=== PATIENT | female | born 1990 | race Caucasian/White ===

== ENCOUNTER 2023-03-06 17:35 | Emergency (ER) | payer OTHER, SELFPAY ==
[2023-03-06 17:42] VITALS: BP 116/73; PULSE 64; RESP 18; TEMP 36.8; O2SAT 99; BMI 31.9
--- NOTE | 2023-03-06 17:57 | ED.SKABFB1 ---
Documented by User: Zelda Medina 03/06/23 18:13 HPI - Skin/Abscess/Foreign Bdy General Chief complaint: Skin/Abscess/Foreign Body Stated complaint: ABSCESS INNER THIGH Time Seen by Provider: 03/06/23 17:56 Source: patient Mode of arrival: walk-in Limitations: no limitations History of Present Illness HPI narrative: 32 year old female presents to the ED for an erythematous, raised, painful area to her right groin. Onset was a few days ago. I has increased in size. States it started to drain today. Denies fever, chills, injury, weakness. Denies urinary sx. She did have a positive HPT yesterday. Rates her pain 6/10 at this time. 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 Related Data Previous Rx's Medication Instructions Recorded clindamycin HCl 300 mg capsule 300 mg PO TID 10 days #30 caps 03/06/23 Allergies Allergy/AdvReac Type Severity Reaction Status Date / Time amoxicillin Allergy Severe Verified 03/06/23 17:46 codeine Allergy Severe Verified 03/06/23 17:46 ibuprofen Allergy Severe Verified 03/06/23 17:46 Penicillins Allergy Severe Verified 03/06/23 17:46 Review of Systems ROS Constitutional Denies: fever or chills Cardiovascular Denies: chest pain Respiratory Denies: shortness of breath Gastrointestinal Denies: abdominal pain, vomiting or diarrhea Genitourinary Denies: painful urination, urinary frequency, urinary urgency or vaginal discharge Integumentary/Breast Reports: new lesion Exam Constitutional Vital Signs, click to edit/add: Last Vital Signs Temp 98.3 F 03/06/23 17:42 Pulse 64 03/06/23 17:42 Resp 18 03/06/23 17:42 BP 116/73 03/06/23 17:42 Pulse Ox 99 03/06/23 17:42 O2 Del Method Room Air 03/06/23 18:02 Common normals: no apparent distress and oriented x3 Exam limitations: no altered mental status General appearance: cooperative; not in distress and not ill appearing Eye Common normals: conjunctivae normal and no scleral icterus Neck & C-Spine Common normals: supple Respiratory Effort & inspection: symmetric chest movement Cardio Common normals: regular rate GI Common normals: soft to palpation and non-tender Other: Erythematous, raised, tender area to right groin, in skin fold. Area is draining. Area approx 1 cm in diameter. I and D not indicated at this time. Neuro Common normals: oriented x3 Sensorium/orientation: awake and alert Speech: speech normal Gait (neuro): normal gait Course Vital Signs Vital signs: Vital Signs Temperature 98.3 F 03/06/23 17:42 Pulse Rate 64 03/06/23 17:42 Respiratory Rate 18 03/06/23 17:42 Blood Pressure 116/73 03/06/23 17:42 Pulse Oximetry 99 03/06/23 17:42 Oxygen Delivery Method Room Air 03/06/23 17:42 Temperature 98.3 F 03/06/23 17:42 Pulse Rate 64 03/06/23 17:42 Respiratory Rate 18 03/06/23 17:42 Blood Pressure 116/73 03/06/23 17:42 Pulse Oximetry 99 03/06/23 17:42 Oxygen Delivery Method Room Air 03/06/23 18:02 MDM - Skin/Abscess/Foreign Bdy MDM Narrative Medical decision making narrative: The abscess area is draining. Warm, moist compresses were discussed. A prescription was provided for clindamycin. Follow up with pcp for a recheck, further evaluation and treatment. Discharge Plan Discharge Chief Complaint: Skin/Abscess/Foreign Body Clinical Impression: Abscess of skin or subcutaneous tissue Patient Disposition: Home, Self-Care Time of Disposition Decision: 17:56 Condition: Good Mode of Transportation: Private Vehicle Prescriptions / Home Meds: New clindamycin HCl 300 mg capsule 300 mg PO TID 10 Days Qty: 30 0RF Instructions: Abscess (ED) Stand Alone Forms: Portal Instructions Referrals: Physician,Non-Staff, [Primary Care Provider] - 1 week Discharge Date/Time: 03/06/23 18:05 Documented by User: Sade Jaeger MD 03/06/23 18:46 HPI - Skin/Abscess/Foreign Bdy General Chief complaint: Skin/Abscess/Foreign Body Stated complaint: ABSCESS INNER THIGH Time Seen by Provider: 03/06/23 17:56 Related Data Previous Rx's Medication Instructions Recorded clindamycin HCl 300 mg capsule 300 mg PO TID 10 days #30 caps 03/06/23 Allergies Allergy/AdvReac Type Severity Reaction Status Date / Time amoxicillin Allergy Severe Verified 03/06/23 17:46 codeine Allergy Severe Verified 03/06/23 17:46 ibuprofen Allergy Severe Verified 03/06/23 17:46 Penicillins Allergy Severe Verified 03/06/23 17:46 Exam Constitutional Vital Signs, click to edit/add: Last Vital Signs Temp 98.3 F 03/06/23 17:42 Pulse 64 03/06/23 17:42 Resp 18 03/06/23 17:42 BP 116/73 03/06/23 17:42 Pulse Ox 99 03/06/23 17:42 O2 Del Method Room Air 03/06/23 18:02 Course Vital Signs Vital signs: Vital Signs Temperature 98.3 F 03/06/23 17:42 Pulse Rate 64 03/06/23 17:42 Respiratory Rate 18 03/06/23 17:42 Blood Pressure 116/73 03/06/23 17:42 Pulse Oximetry 99 03/06/23 17:42 Oxygen Delivery Method Room Air 03/06/23 17:42 Temperature 98.3 F 03/06/23 17:42 Pulse Rate 64 03/06/23 17:42 Respiratory Rate 18 03/06/23 17:42 Blood Pressure 116/73 03/06/23 17:42 Pulse Oximetry 99 03/06/23 17:42 Oxygen Delivery Method Room Air 03/06/23 18:02 MDM - Skin/Abscess/Foreign Bdy MDM Narrative Medical decision making narrative: The abscess area is draining. Warm, moist compresses were discussed. A prescription was provided for clindamycin. Follow up with pcp for a recheck, further evaluation and treatment. Attending physician attestation I have reviewed the mid-level documentation, agree with the documentation, medical decision making and treatment plan as outlined by the mid-level provider. Discharge Plan Discharge Chief Complaint: Skin/Abscess/Foreign Body Clinical Impression: Abscess of skin or subcutaneous tissue Patient Disposition: Home, Self-Care Time of Disposition Decision: 17:56 Condition: Good Mode of Transportation: Private Vehicle Prescriptions / Home Meds: New clindamycin HCl 300 mg capsule 300 mg PO TID 10 Days Qty: 30 0RF Instructions: Abscess (ED) Stand Alone Forms: Portal Instructions Referrals: Physician,Non-Staff, MD [Primary Care Provider] - 1 week Discharge Date/Time: 03/06/23 18:05
== END 2023-03-06 18:05 | disposition home or self-care (01) ==
PROVIDERS: Emergency Provider Emergency Medicine
DX: L02.214 Cutaneous abscess of groin (principal)
CPT/HCPCS: 99283

== ENCOUNTER 2023-03-28 17:49 | Emergency (ER) | payer OTHER, SELFPAY ==
[2023-03-28 17:54] VITALS: BP 91/67; PULSE 95; RESP 18; TEMP 36.6; O2SAT 99; BMI 30.5
--- NOTE | 2023-03-28 18:15 | US_ITS ---
[address] [address] Patient Name: RJ ELENA MRN: [id number] date: 1990 Sex: F Assigned Patient Location: ER Current Patient Location: Accession/Order Number: [id number] Exam Date: 03/28/2023 18:59 Report Date: 03/28/2023 20:26 At the request of: ALESIA COSBY Procedure: US OB transvaginal EXAMINATION: US OB transvaginal HISTORY: Abdominal pain, 8 weeks preg TECHNIQUE: Grayscale and color Doppler sonographic evaluation of the uterus and adnexa was performed utilizing a transvaginal approach only. COMPARISON: None. FINDINGS: Uterus: Size: Normal Orientation:Anteverted Intrauterine Gestational Sac: Present Yolk Sac: Present Pole: Present. [place]-rump length measures 1.6 cm, 8 weeks 0 days, HILARY 11/12/2023 Cardiac Activity: Present Subchorionic hemorrhage: none Cervix: Closed Right adnexa:Right ovary is not visualized Left adnexa:A couple small cysts measuring up to 2.1 cm. Left ovary measures 4.4 x 2.7 x 2.8 cm and demonstrates arterial and venous Doppler waveform. Free fluid:No significant free pelvic fluid. 3.2 cm probable fibroid of the posterior body of uterus.. US/US OB transvaginal IMPRESSION: 1. Single, living, intrauterine with estimated age of 8 weeks 0 days based on crown-rump length. No gross complication. There is good concordance of age by dates with age by today's ultrasound. Electronically authenticated by: PAT WAGNER Date: 03/28/2023 20:26
--- NOTE | 2023-03-28 18:18 | ED_ITS ---
HPI - Nausea/Vomiting/Diarrhea General Chief complaint: Nausea/Vomiting/Diarrhea Stated complaint: Issues-8wks, Nausea/Vomiting, Dizziness Time Seen by Provider: 03/28/23 18:11 Source: patient Mode of arrival: walk-in Limitations: no limitations History of Present Illness HPI Narrative: patient is a 32-year-old female who presents to the Emergency Room eight weeks of for a one-day history of nausea and vomiting. She states she is not able to keep anything down. 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 She has not had any diarrhea or urinary symptoms. She has not yet seen an [facility] INSTALLER and is scheduled in the next several weeks. She reports abdominal pain but describes it as just nauseous feeling . She has had no vaginal bleeding or fluid leakage. she states she feels dizzy, she has had no syncope. She does not take any home medications for nausea. She has had no fevers or significant upper respiratory symptoms. Related Data Previous Rx's Medication Instructions Recorded clindamycin HCl 300 mg capsule 300 mg PO TID 10 days #30 caps 03/06/23 cephalexin 500 mg capsule 500 mg PO Q8H 7 days #21 caps 03/28/23 ondansetron 4 mg disintegrating 4 mg PO Q6H PRN nausea and 03/28/23 tablet vomiting #12 tabs Allergies Allergy/AdvReac Type Severity Reaction Status Date / Time amoxicillin Allergy Severe Verified 03/06/23 17:46 codeine Allergy Severe Verified 03/06/23 17:46 ibuprofen Allergy Severe Verified 03/06/23 17:46 Penicillins Allergy Severe Verified 03/06/23 17:46 Review of Systems ROS Constitutional Denies: fever or chills Ears, nose, mouth, and throat Denies: throat pain or nasal congestion Cardiovascular Denies: chest pain Respiratory Denies: shortness of breath Gastrointestinal Reports: abdominal pain, nausea and vomiting; Denies: diarrhea Genitourinary Denies: painful urination Musculoskeletal Denies: back pain Integumentary/Breast Denies: rash Neurological Reports: dizziness; Denies: headache Allergic/Immunologic Denies: hives Exam Narrative Exam Narrative: Gen.: Awake, alert, in no distress Head: Normocephalic, atraumatic ENT: Moist mucous membranes Respiratory: No respiratory distress, lungs clear bilaterally Cardio: Regular rate and rhythm Gastrointestinal: Abdomen is soft, nondistended and nontender to palpation Extremities: Moves extremities equally Psych: Normal mood and affect Neuro: No focal neuro deficit Skin: Warm, dry, intact Constitutional Vital Signs, click to edit/add: Last Vital Signs Temp 97.8 F 03/28/23 17:54 Pulse 95 H 03/28/23 17:54 Resp 18 03/28/23 17:54 BP 91/67 03/28/23 17:54 Pulse Ox 99 03/28/23 17:54 Course Vital Signs Vital signs: Vital Signs Temperature 97.8 F 03/28/23 17:54 Pulse Rate 95 H 03/28/23 17:54 Respiratory Rate 18 03/28/23 17:54 Blood Pressure 91/67 03/28/23 17:54 Pulse Oximetry 99 03/28/23 17:54 Temperature 97.8 F 03/28/23 17:54 Pulse Rate 95 H 03/28/23 17:54 Respiratory Rate 18 03/28/23 17:54 Blood Pressure 91/67 03/28/23 17:54 Pulse Oximetry 99 03/28/23 17:54 MDM - Nausea/Vomiting/Diarrhea MDM Narrative Medical decision making narrative: patient treated with IV fluids, Zofran. She had no episodes of emesis in the emergency Department and reported feeling better. Vital signs are stable. Abdomen is soft and benign. Ultrasound shows patient has an intrauterine gestation with no acute abnormalities measuring eight weeks and zero days. Cardiac activity is present. Patient is noted to have a urinary tract infection on lab studies, no evidence of sepsis or severe dehydration on blood work. She'll be treated with Keflex, Zofran for home. Follow-up with [facility] INSTALLER and return to the Emergency Room if symptoms change or worsen. Medical Records Attestation: I reviewed the patient's medical records. Lab Data Attestation: I reviewed the patient's lab results. Labs: Lab Results 03/28/23 Range/Units 18:34 WBC 10.6 (4.0-11.0) 10^3/uL RBC 4.32 (4.20-5.40) 10^6/uL Hgb 11.0 L (12.0-16.0) g/dL Hct 34.5 L (36.0-48.0) % MCV 79.9 L (81.0-99.0) fL MCH 25.5 L (26.7-34.0) pg MCHC 31.9 (29.9-35.2) g/dL RDW 16.9 H (11.0-15.0) % Plt Count 201 (150-450) 10^3/uL MPV 10.4 (9.5-13.5) fL Neut % (Auto) 68.2 (43.0-75.0) % Lymph % (Auto) 27.1 (20.5-60.0) % Josephine % (Auto) 2.9 (1.7-12.0) % Eos % (Auto) 1.1 (0.9-7.0) % Baso % (Auto) 0.3 (0.2-2.0) % Neut # (Auto) 7.2 H (1.4-6.5) 10^3/uL Lymph # (Auto) 2.9 (1.2-3.8) 10^3/uL Josephine # (Auto) 0.3 (0.3-0.8) 10^3/uL Eos # (Auto) 0.1 (0.0-0.7) 10^3/uL Baso # (Auto) 0.0 (0.0-0.1) 10^3/uL Abs Immat Gran (auto) 0.04 H (0.00-0.03) 10^3/uL Imm/Tot Granulo (auto) 0.4 (0.0-0.5) % Sodium 140 (136-145) mmol/L Potassium 4.2 (3.5-5.1) mmol/L Chloride 107 (98-107) mmol/L Carbon Dioxide 25.9 (21.0-32.0) mmol/L Anion Gap 11.3 BUN 6.0 L (7.0-18.0) mg/dL Creatinine 0.70 (0.55-1.02) mg/dL Est GFR ( Amer) >60 (>=60) Est GFR (Non-Af Amer) >60 (>=60) BUN/Creatinine Ratio 8.6 Glucose 83 (74-106) mg/dL Calcium 7.8 L (8.5-10.1) mg/dL Total Bilirubin 0.2 (0.2-1.0) mg/dL AST 13 L (15-37) U/L ALT 15 (14-59) U/L Alkaline Phosphatase 50 (46-116) U/L Total Protein 6.1 L (6.4-8.2) g/dL Albumin 2.9 L (3.4-5.0) g/dL Globulin 3.2 g/dL Albumin/Globulin Ratio 0.9 HCG, Quant 78934 mIU/mL Urine Color Lt. yellow (YELLOW) Urine Clarity Clear (CLEAR) Urine pH 7.5 (5.0-9.0) Ur Specific [place] 1.020 (1.005-1.025) Urine Protein Negative (NEG/TRACE) mg/dL Urine Glucose (UA) Negative (NEGATIVE) mg/dL Urine Ketones Negative (NEGATIVE) mg/dL Urine Occult Blood Trace-i (NEGATIVE) Urine Nitrite Negative (NEGATIVE) Urine Bilirubin Negative (NEGATIVE) Urine Urobilinogen 0.2 (0.2-1.0) EU/dL Ur Leukocyte Esterase Moderate A (NEGATIVE) Urine RBC 2-5 A (0-2) #/HPF Urine WBC 20-50 A (NONE SEEN) #/HPF Ur Squamous Epith Cells Many A (NONE/RARE) #/LPF Urine Crystals None seen (None Seen) #/HPF Urine Bacteria Moderate A (NONE SEEN) #/HPF Urine Casts None seen (NONE SEEN) #/LPF Urine Mucus None seen (NONE SEEN) Ur Culture Indicated? Yes Imaging Data US - abdomen: Attestation: I have reviewed the pertinent imaging results. Radiologist's impression: Procedure: US OB transvaginal EXAMINATION: US OB transvaginal HISTORY: Abdominal pain, 8 weeks preg TECHNIQUE: Grayscale and color Doppler sonographic evaluation of the uterus and adnexa was performed utilizing a transvaginal approach only. COMPARISON: None. FINDINGS: Uterus: Size: Normal Orientation:Anteverted Intrauterine Gestational Sac: Present Yolk Sac: Present Pole: Present. [place]-rump length measures 1.6 cm, 8 weeks 0 days, HILARY 11/12/2023 Cardiac Activity: Present Subchorionic hemorrhage: none Cervix: Closed Right adnexa:Right ovary is not visualized Left adnexa:A couple small cysts measuring up to 2.1 cm. Left ovary measures 4.4 x 2.7 x 2.8 cm and demonstrates arterial and venous Doppler waveform. Free fluid:No significant free pelvic fluid. 3.2 cm probable fibroid of the posterior body of uterus.. IMPRESSION: 1. Single, living, intrauterine with estimated age of 8 weeks 0 days based on crown-rump length. No gross complication. There is good concordance of age by dates with age by today's ultrasound. Electronically authenticated by: PAT WAGNER Date: 03/28/2023 20:26 Discharge Plan Discharge Chief Complaint: Nausea/Vomiting/Diarrhea Clinical Impression: Nausea and vomiting during , UTI (urinary tract infection) Patient Disposition: Home, Self-Care Time of Disposition Decision: 20:31 Condition: Good Prescriptions / Home Meds: New cephalexin 500 mg capsule 500 mg PO Q8H 7 Days Qty: 21 0RF ondansetron 4 mg tablet,disintegrating 4 mg PO Q6H PRN (Reason: nausea and vomiting) Qty: 12 0RF No Action clindamycin HCl 300 mg capsule 300 mg PO TID 10 Days Qty: 30 0RF Instructions: Nausea and Vomiting in (ED), Urinary Tract Infection in (ED) Stand Alone Forms: Portal Instructions Referrals: Physician,Non-Staff, MD [Primary Care Provider] - 1 week
[2023-03-28] MEDS: ONDANSETRON PF 4 MG/2 ML VIAL IV (18:32)
[2023-03-28] MEDS: DEXTROSE 5%-LACTATED RINGERS 1,000 ML 999 ML IV (18:32)
[2023-03-28 19:00] LABS: Basophils Percent Auto 0.3 % (0.2-2.0); Eosinophils Absolute Auto 0.1 10^3/uL (0.0-0.7); Eosinophils Percent Auto 1.1 % (0.9-7.0); Hematocrit 34.5 % (36.0-48.0); Immature Granulocytes Abs Auto 0.04 10^3/uL (0.00-0.03); Immature Granulocytes Pct Auto 0.4 % (0.0-0.5); Lymphocytes Absolute Auto 2.9 10^3/uL (1.2-3.8); Lymphocytes Percent Auto 27.1 % (20.5-60.0); Mean Corpuscular HGB Conc 31.9 g/dL (29.9-35.2); Mean Corpuscular Hemoglobin 25.5 pg (26.7-34.0); Mean Corpuscular Volume 79.9 fL (81.0-99.0); Mean Platelet Volume 10.4 fL (9.5-13.5); Monocytes Absolute Auto 0.3 10^3/uL (0.3-0.8); Monocytes Percent Auto 2.9 % (1.7-12.0); Neutrophils Absolute Auto 7.2 10^3/uL (1.4-6.5); Neutrophils Percent Auto 68.2 % (43.0-75.0); Platelet Count 201 10^3/uL (150-450); Red Blood Count 4.32 10^6/uL (4.20-5.40); Red Cell Distribution Width 16.9 % (11.0-15.0); White Blood Count 10.6 10^3/uL (4.0-11.0)
[2023-03-28 19:01] LABS: Bilirubin Urine NEGATIVE (NEGATIVE); Blood Urine TRACE-I (NEGATIVE); Clarity Urine CLEAR (CLEAR); Color Urine LT. YELLOW (YELLOW); Glucose Urine UA NEGATIVE (NEGATIVE); Ketones Urine NEGATIVE (NEGATIVE); Leukocyte Esterase Urine MODERATE (NEGATIVE); Nitrite Urine NEGATIVE (NEGATIVE); Protein Urine NEGATIVE (NEG/TRACE); Urobilinogen Urine 0.2 EU/dL (0.2-1.0); pH Urine 7.5 (5.0-9.0)
[2023-03-28 19:02] LABS: Urine Microscopic Indicated YES
[2023-03-28 19:08] LABS: Alanine Aminotransferase 15 U/L (14-59); Albumin Globulin Ratio 0.9; Albumin Level 2.9 g/dL (3.4-5.0); Alkaline Phosphatase 50 U/L (46-116); Anion Gap 11.3; Aspartate Amino Transferase 13 U/L (15-37); BUN Creatinine Ratio 8.6; Bilirubin Total 0.2 mg/dL (0.2-1.0); Calcium 7.8 mg/dL (8.5-10.1); Carbon Dioxide 25.9 mmol/L (21.0-32.0); Chloride 107 mmol/L (98-107); Estimated GFR (African America >60 (>=60); Estimated GFR (Non-African Ame >60 (>=60); Globulin 3.2 g/dL; Glucose 83 mg/dL (74-106); Potassium 4.2 mmol/L (3.5-5.1); Sodium 140 mmol/L (136-145); Total Protein 6.1 g/dL (6.4-8.2)
[2023-03-28 19:29] LABS: Mucus Urine NONE SEEN (NONE SEEN); Squamous Epithelial Cell Urine MANY #/LPF (NONE/RARE)
[2023-03-28 19:30] LABS: Bacteria Urine MODERATE #/HPF (NONE SEEN); Cast Seen? NONE SEEN #/LPF (NONE SEEN); Crystals Seen? None Seen #/HPF (None Seen); WBC Urine 20-50 #/HPF (NONE SEEN)
[2023-03-28 19:37] LABS: Urine Culture Indicated YES
== END 2023-03-28 20:43 | disposition home or self-care (01) ==
PROVIDERS: Physician Assistant; Emergency Provider Emergency Medicine
DX: O21.9 Vomiting of pregnancy, unspecified (principal); O23.41 Unspecified infection of urinary tract in pregnancy, first trimester; N39.0 Urinary tract infection, site not specified; Z3A.08 8 weeks gestation of pregnancy
CPT/HCPCS: 36415; 76817; 80053; 81001; 84702; 85025; 87086; 96361; 96374; 99285

== ENCOUNTER 2023-04-14 10:53 | Outpatient (OUT) | payer OTHER, SELFPAY ==
[2023-04-14 11:38] LABS: Basophils Percent Auto 0.3 % (0.2-2.0); Eosinophils Percent Auto 0.2 % (0.9-7.0); Estimated Average Glucose 91 mg/dL; Glycohemoglobin A1C 4.8 % (4.5-6.2); Hematocrit 34.8 % (36.0-48.0); Hemoglobin 11.3 g/dL (12.0-16.0); Immature Granulocytes Abs Auto 0.03 10^3/uL (0.00-0.03); Immature Granulocytes Pct Auto 0.3 % (0.0-0.5); Lymphocytes Absolute Auto 2.1 10^3/uL (1.2-3.8); Mean Corpuscular HGB Conc 32.5 g/dL (29.9-35.2); Mean Corpuscular Hemoglobin 25.6 pg (26.7-34.0); Mean Corpuscular Volume 78.7 fL (81.0-99.0); Mean Platelet Volume 10.3 fL (9.5-13.5); Monocytes Absolute Auto 0.3 10^3/uL (0.3-0.8); Monocytes Percent Auto 2.4 % (1.7-12.0); Neutrophils Absolute Auto 9.3 10^3/uL (1.4-6.5); Neutrophils Percent Auto 78.8 % (43.0-75.0); Platelet Count 163 10^3/uL (150-450); Red Blood Count 4.42 10^6/uL (4.20-5.40); Red Cell Distribution Width 16.6 % (11.0-15.0); White Blood Count 11.8 10^3/uL (4.0-11.0)
[2023-04-14 11:52] LABS: Thyroid Stimulating Hormone 1.429 uIU/mL (0.358-3.740)
[2023-04-15 04:07] LABS: HBsAg Screen Negative (Negative); HCV Ab Non Reactive (Non Reactive); HIV Ab/p24 Ag Screen Non Reactive (Non Reactive)
[2023-04-15 06:09] LABS: Rubella Antibodies, IgG 5.85 index (Immune >0.99)
[2023-04-15 10:09] LABS: Rapid Plasma Reagin, Quant Non Reactive titer (NonRea<1:1)
== END 2023-04-14 10:54 | disposition home or self-care (01) ==
LOC: LAB 10:55
PROVIDERS: Visit Provider Obstetrics & Gynecology
DX: Z34.80 Encounter for supervision of other normal pregnancy, unspecified trimester (principal)
CPT/HCPCS: 36415; 83036; 84443; 85025; 86592; 86762; 86803; 86850; 86900; 86901; 87086; 87340; 87389

== ENCOUNTER 2023-05-16 11:54 | Outpatient (OUT) | payer OTHER, SELFPAY ==
[2023-05-18 01:09] LABS: AFP Value 23.1 ng/mL (.); Gestat. Age Based On Ultrasound (.); Insulin Dep Diabetes No (.); Maternal Age At EDD 33.5 yr (.); OSBR Risk 1 IN 10000 (.); Results Report (.)
== END 2023-05-16 11:55 | disposition home or self-care (01) ==
LOC: LAB 11:56
PROVIDERS: Visit Provider Obstetrics & Gynecology
DX: Z34.92 Encounter for supervision of normal pregnancy, unspecified, second trimester (principal)
CPT/HCPCS: 36415; 82105

== ENCOUNTER 2023-06-15 19:55 | Outpatient (REF) | payer OTHER, SELFPAY ==
[2023-06-21 14:08] LABS: Age Gdln ACOG Testing Note (.); HPV Aptima Positive (Negative); IGP, Aptima HPV, rfx 16/18,45 Note (.)
--- OUTSIDE RECORDS SUMMARY | 2023-06-28 03:34 | XMS_ITS | CCD ---
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 Cutter Name Role Phone Mark Pitts Primary Care Physician [phone] PHILLIP LORA Admitting Unavailable HEBER, DR PRABHU Cervantes Consulting Unavailable GENO, PHILLIP Larios Attending Unavailable FLORENCIA, DR ROCK Primary Care Unavailable HARJEET, JOHN PAUL DUMAS Consulting Unavailable KASI, TULIO Consulting Unavailable MIKE, LIANNA Consulting Unavailable GREYSON, DR BROWNE Attending Unavailable GREYSON, DR BROWNE Consulting Unavailable FLORENCIA, DR ROCK Primary Care Unavailable GREYSON, DR BROWNE Admitting Unavailable Hubert, Saúl Attending Unavailable Hubert, Saúl Attending Unavailable Khadar, Charlie Hood Attending Unavailable Peggy, Javier Attending Unavailable Peggy, Javier Attending Unavailable Khadar, Charlie Hood Attending Unavailable HAIDER, John Attending Unavailable HAIDER, John Attending Unavailable MONICA, Willa Jean Attending Unavailable MONICA, Willa Jean Admitting Unavailable Amber, Quita Cano Attending Unavailable Lamin, Solo Sheldon Attending Unavailable CHEPE, ANY Attending Unavailable Allergies Allergy Classification Reported Allergen(s) Allergy Type Date of Onset Reaction(s) Facility (8 sources) Codeine; Translations: [codeine] Drug Allergy nausea [facility] (8 sources) Penicillin; Translations: [penicillin] Drug Allergy [facility] (1 source) Clindamycin Drug Allergy [facility] (1 source) Codeine Drug Allergy 4 [facility] (1 source) Penicillins Drug allergy (disorder) 4 [facility] (7 sources) Ibuprofen; Translations: [ibuprofen] Drug Allergy Anaphylaxis (disorder) [facility] (3 sources) Amoxicillin; Translations: [amoxicillin] Drug Allergy [facility] Medications Current Medications Medication Drug Class(es) Dates Sig (Normalized) Sig (Original) Albuterol (Eqv-ProAir HFA) 90 mcg/inh inhalation aerosol (1 source) Start: 02-26-2023 End: 03-05-2023 take 2 puff(s) by inhalation every four hours Albuterol (Eqv-ProAir HFA) 90 mcg/inh inhalation aerosol 2 puff(s), Inhalation, q4hr for 7 day(s), 8.5 gm, Refill(s) 0, [facility], 160, cm, 02/26/23 15:59:00 EDT, Height/Length Dosing, 85.6, kg, 02/26/23 15:59:00 EDT, Weight Dosing Start Date: 02/26/23 Stop Date: 03/05/23 Status: Ordered brompheniramine maleate 0.4 mg/ml / dextromethorphan hydrobromide 2 mg/ml / pseudoephedrine hydrochloride 6 mg/ml oral solution (6 sources) alpha-Adrenergic Agonist, Uncompetitive C-kogdud-Z-aspartat e Receptor Antagonist, Sigma-1 Agonist Start: 09-04-2022 take 5 mL by mouth four times daily Bromfed DM oral syrup 5 mL, Oral, QID for cold symptoms, 200 mL, Refill(s) 0, [facility], 160, cm, 02/26/23 15:59:00 EDT, Height/Length Dosing, 85.6, kg, 02/26/23 15:59:00 EDT, Weight Dosing Start Date: 02/26/23 Status: Ordered ciprofloxacin 3 mg/ml / dexamethasone 1 mg/ml otic suspension (2 sources) Corticosteroid, Quinolone Antimicrobial Start: 12-30-2022 End: 01-06-2023 Ciprodex 0.3%-0.1% Susp-Otic 5 drop(s), Otic, BID for 7 day(s), 7.5 mL, Refill(s) 0, [facility], 160, cm, 12/30/22 13:14:00 EDT, Height/Length Dosing, 85.6, kg, 12/30/22 13:14:00 EDT, Weight Dosing Start Date: 12/30/22 Stop Date: 01/06/23 Status: Ordered [id number] 0.3 ml EPINEPHrine 1 mg/ml auto-injector (6 sources) alpha-Adrenergic Agonist, beta-Adrenergic Agonist, Catecholamine Start: 04-14-2022 EpiPen 2-Ze 0.3 mg injectable kit 0.3 mg = 1 EA, IntraMuscular, As Directed, May substitute for another brand if required by insurance or inventory, # 1 kit(s), Refills(s) 0, Pharmacy: [facility], 160, cm, 04/14/22 14:56:00 EDT, Height/Length Dosing, 83, kg, 04/14/22 14:56:... Start Date: 04/14/22 Status: Ordered famotidine 40 mg oral tablet (2 sources) Histamine-2 Receptor Antagonist Start: 04-14-2022 End: 04-21-2022 take 1 tablet by mouth once daily at bedtime Pepcid 40 mg Tab 40 mg = 1 tab(s), Oral, Once a day (at bedtime), X 7 day(s), # 7 tab(s), Refills(s) 0, Pharmacy: [facility] 1985, 160, cm, 04/14/22 14:56:00 EDT, Height/Length Dosing, 83, kg, 04/14/22 14:56:00 EDT, Weight Dosing Start Date: 04/14/22 Stop Date: 04/21/22 Status: Ordered Start: 11-19-2021 End: 11-26-2021 take 1 tablet by mouth once daily at bedtime Pepcid 40 mg Tab 40 mg = 1 tab(s), Oral, Once a day (at bedtime), X 7 day(s), # 7 tab(s), Refills(s) 0, Pharmacy: [facility] 1985, 160, cm, 11/19/21 15:30:00 EDT, Height/Length Dosing, 83, kg, 11/19/21 15:30:00 EDT, Weight Dosing Start Date: 11/19/21 Stop Date: 11/26/21 Status: Ordered fluticasone propionate 0.05 mg/actuat metered dose nasal spray (2 sources) Corticosteroid Start: 12-31-2022 take 2 spray(s) nasal route once daily Flonase 0.05 mg/inh [place] 2 spray(s), Nasal, Daily, 16 gram, Refill(s) 0, each nostril, [facility] 1986, 160, cm, 12/31/22 10:20:00 EDT, Height/Length Dosing, 85.6, kg, 12/31/22 10:20:00 EDT, Weight Dosing Start Date: 12/31/22 Status: Ordered 12 hr guaiFENesin 600 mg extended release oral tablet (1 source) Start: 02-26-2023 End: 03-05-2023 take 1 tablet by mouth every twelve hours Mucinex 600 mg Tab-ER 600 mg = 1 tab(s), Oral, q12hr, X 7 day(s), # 14 tab(s), Refills(s) 0, Pharmacy: [facility] 1986, 160, cm, 02/26/23 15:59:00 EDT, Height/Length Dosing, 85.6, kg, 02/26/23 15:59:00 EDT, Weight Dosing Start Date: 02/26/23 Stop Date: 03/05/23 Status: Ordered Multi Vitamins oral tablet (7 sources) Start: 01-28-2019 take 1 tablet by mouth once daily Multi Vitamins oral tablet 1 tab(s), Oral, Daily, Refill(s) 0 Start Date: 01/28/19 Status: Ordered naproxen 500 mg oral tablet (14 sources) Nonsteroidal Anti-inflammatory Drug Start: 01-28-2019 take 1 tablet by mouth twice daily at mealtime naproxen 500 mg Tab 500 mg = 1 tab(s), Oral, BID, with food, # 14 tab(s), Refills(s) 0 Start Date: 01/05/21 Status: Ordered predniSONE 20 mg oral tablet (11 sources) Start: 02-26-2023 End: 03-03-2023 take 3 tablets by mouth once daily predniSONE 20 mg Tab 60 mg = 3 tab(s), Oral, Daily, X 5 day(s), # 15 tab(s), Refills(s) 0, Pharmacy: [facility] 1986, 160, cm, 02/26/23 15:59:00 EDT, Height/Length Dosing, 85.6, kg, 02/26/23 15:59:00 EDT, Weight Dosing Start Date: 02/26/23 Stop Date: 03/03/23 Status: Ordered Start: 09-05-2022 End: 09-12-2022 take 3 tablets by mouth once daily predniSONE 20 mg Tab 60 mg = 3 tab(s), Oral, Daily, X 7 day(s), # 21 tab(s), Refills(s) 0, Pharmacy: [facility] 1986, 160, cm, 09/05/22 21:08:00 EST, Height/Length Dosing, 85.6, kg, 09/05/22 21:08:00 EST, Weight Dosing Start Date: 09/05/22 Stop Date: 09/12/22 Status: Ordered Start: 04-14-2022 End: 04-21-2022 take 3 tablets by mouth once daily predniSONE 20 mg Tab 60 mg = 3 tab(s), Oral, Daily, X 7 day(s), # 21 tab(s), Refills(s) 0, Pharmacy: [facility] 1986, 160, cm, 04/14/22 14:56:00 EDT, Height/Length Dosing, 83, kg, 04/14/22 14:56:00 EDT, Weight Dosing Start Date: 04/14/22 Stop Date: 04/21/22 Status: Ordered Start: 11-19-2021 End: 11-26-2021 take 3 tablets by mouth once daily predniSONE 20 mg Tab 60 mg = 3 tab(s), Oral, Daily, X 7 day(s), # 21 tab(s), Refills(s) 0, Pharmacy: [facility] 1986, 160, cm, 11/19/21 15:30:00 EDT, Height/Length Dosing, 83, kg, 11/19/21 15:30:00 EDT, Weight Dosing Start Date: 11/19/21 Stop Date: 11/26/21 Status: Ordered Start: 07-04-2021 End: 07-09-2021 take 2 tablets by mouth once daily predniSONE 20 mg Tab 40 mg = 2 tab(s), Oral, Daily, # 10 tab(s), Refills(s) 0 Start Date: 07/04/21 Stop Date: 07/09/21 Status: Ordered promethazine hydrochloride 25 mg oral tablet (7 sources) Phenothiazine Start: 03-21-2019 take 1 tablet by mouth every four hours promethazine 25 mg Tab 25 mg = 1 tab(s), Oral, q4hr, # 14 tab(s), Refills(s) 0, Pharmacy: [facility] 1985 Start Date: 03/21/19 Status: Ordered traMADol hydrochloride 50 mg oral tablet (1 source) Opioid Agonist Start: 12-31-2022 End: 01-03-2023 take 1 tablet by mouth every six hours as needed for pain traMADOL 50 mg Tab 50 mg = 1 tab(s), Oral, q6hr, PRN for pain, X 3 day(s), # 12 tab(s), Refills(s) 0, Pharmacy: [facility] 1985, 160, cm, 12/31/22 10:20:00 EDT, Height/Length Dosing, 85.6, kg, 12/31/22 10:20:00 EDT, Weight Dosing Start Date: 12/31/22 Stop Date: 01/03/23 Status: Ordered Zofran ODT 4 mg Tab-Dis (14 sources) Start: 08-05-2019 take 1 tablet by mouth three times daily Zofran ODT 4 mg Tab-Dis 4 mg = 1 tab(s), Oral, TID, # 15 tab(s), Refills(s) 0, Pharmacy: [facility] 1985, 160, cm, 08/05/19 9:28:00 EST, Height/Length Measured, 86.5, kg, 08/05/19 9:28:00 EST, Weight Measured Start Date: 08/05/19 Status: Ordered Start: 03-21-2019 take 1 tablet by savannah th every six hours Zofran ODT 4 mg Tab-Dis 4 mg = 1 tab(s), Oral, q6hr, # 10 tab(s), Refills(s) 0, Pharmacy: [facility] 1985 Start Date: 03/21/19 Status: Ordered Problems Active Problems Problem Classification Problem Date Documented Da te Episodic/Chronic Allergic reactions (12 sources) Allergic reaction to food; Translations: [Other adverse food reactions, not elsewhere classified, initial encounter] Onset: 11-19-2021 Episodic Chronic obstructive pulmonary disease and bronchiectasis (1 source) Bronchitis; Translations: [Bronchitis, not specified as acute or chronic] Onset: 02-26-2023 Episodic Other ear and sense organ disorders (1 source) Otitis externa of left ear; Translations: [Unspecified otitis externa, left ear] Onset: 12-30-2022 Chronic Other ear and sense organ disorders (1 source) Otitis externa of bilateral ears; Translations: [Unspecified otitis externa, bilateral] Onset: 12-31-2022 Chronic Other upper respiratory infections (2 sources) Acute upper respiratory infection, unspecified; Translations: [Acute upper respiratory infection] Onset: 01-17-2022 Episodic Sprains and strains (2 sources) Sprain of left ankle; Translations: [Sprain of unspecified ligament of left ankle, initial encounter] Onset: 12-21-2022 Episodic Substance-related disorders (9 sources) Nicotine dependence; Translations: [Nicotine dependence, cigarettes, uncomplicated] Onset: 01-17-2022 Chronic Comment on above: Added secondary to d ocumentation in Social History. Unclassified (7 sources) None (qualifier value) 08-05-2019 Unclassified (2 sources) COUGH, UNSPECIFIED; Translations: [COUGH, UNSPECIFIED] Onset: 01-17-2022 Unclassified (1 source) CONTACT W/AND (SUSP) EXPOS COVID-19; Translations: [CONTACT W/AND (SUSP) EXPOS COVID-19] Onset: 07-07-2021 Viral infection (1 source) COVID-19; Translations: [COVID-19] Onset: 01-17-2022 Past or Other Problems Problem Classification Problem Date Documented Da te Episodic/Chronic Nausea and vomiting (1 source) Nausea with vomiting, unspecified; Translations: [NAUSEA WITH VOMITING UNSPECIFIED] Onset: 07-07-2021 Episodic Other aftercare (1 source) Other alf (current) drug therapy; Translations: [OTH CUSTODIAL CURRENT DRUG THERAPY] Onset: 07-07-2021 Episodic Other lower respiratory disease (4 sources) Shortness of breath; Translations: [SHORTNESS OF BREATH] Onset: 07-05-2021 Episodic Pneumonia (except that caused by tuberculosis or sexually transmitted disease) (1 source) Pneumonia, unspecified organism; Translations: [PNEUMONIA UNSPECIFIED ORGANISM] Onset: 07-07-2021 Episodic Unclassified (1 source) COUGH, UNSPECIFIED; Translations: [COUGH, UNSPECIFIED] Onset: 01-13-2022 Results Test Name Value Interpretation Reference Range Facil ity Consent for Treatmenton 02-08 Consent for Treatment [id number]:127 Normal [facility] Discharge Instructionson Discharge Instructions [id number]:127 Normal [facility] ED Clinical Summaryon 2022 ED Clinical Summary [place] [id number] ED Clinical Summary Person Information Name: RJ ELENA Calista/[facility] Age: 32 Years : 1990 Sex: Female Language: Indonesian PCP: Mark Pitts DO Marital Status: Single Phone: [phone] Visit Id: Visit Reason: Shortness of breath; Cough; SOB COUGH Speciality: Acuity: 4 Enc Type: Emergency Med Service: Emergency Arrival: 02/26/2023 15:53:15 Discharge: 02/26/2023 18:02:49 LOS: 000 02:09 Checkin: 02/26/2023 15:53:15 Checkout: 02/26/2023 18:02:49 Dispo Type: Home (Routine DC) EVENTS: Event Name Event Status Request Date/Time Start Date/Time Complete Date/Time Arrive Complete 02/26/2023 15:53:15 02/26/2023 15:53:15 02/26/2023 15:53:15 Document Home Meds Request 02/26/2023 15:53:15 Triage Complete 02/26/2023 15:53:15 02/26/2023 15:59:25 02/26/2023 15:59:25 Bed Assign Complete 02/26/2023 15:54:41 02/26/2023 15:54:41 02/26/2023 15:54:41 Dr Exam Complete 02/26/2023 15:54:41 02/26/2023 16:04:58 02/26/2023 16:04:58 RN Exam Complete 02/26/2023 15:54:41 02/26/2023 18:09:19 02/26/2023 18:09:19 Registration Complete 02/26/2023 15:57:03 02/26/2023 15:57:03 02/26/2023 15:57:03 Reg Complete Request 02/26/2023 15:57:03 Reg Bed Request Complete 02/26/2023 15:57:03 02/26/2023 15:57:03 02/26/2023 15:57:03 EKG Complete 02/26/2023 15:57:53 02/26/2023 16:05:31 X-Ray Complete 02/26/2023 15:59:48 02/26/2023 16:04:53 02/26/2023 16:17:22 Registration Complete 02/26/2023 16:04:58 02/26/2023 16:06:09 02/26/2023 16:06:09 Dr Exam Complete 02/26/2023 16:06:48 02/26/2023 16:06:48 02/26/2023 16:06:48 Registration Request 02/26/2023 16:06:48 Wet Read Request 02/26/2023 16:17:22 Pending Labs Complete 02/26/2023 16:38:46 02/26/2023 17:31:16 Lab Complete 02/26/2023 16:38:46 02/26/2023 17:31:16 Discharge Complete 02/26/2023 17:55:05 02/26/2023 18:10:02 02/26/2023 18:10:02 Transfer Complete 02/26/2023 18:10:02 02/26/2023 18:10:02 02/26/2023 18:10:02 ADDRESS: [address] [place] [address] [address] [place] [id number] PHYS DOC NOTES: MEDICAL INFORMATION: Prescriptions Given: New Medications [facility], [address] [place], [place] [id number], [phone] albuterol (Albuterol (Eqv-ProAir HFA) 90 mcg/inh inhalation aerosol) 2 Puffs Inhalation every 4 hours for 7 Days. Refills: 0. guaifenesin (Mucinex 600 mg Tab-ER) 1 Tablets By Mouth every 12 hours for 7 Days. Refills: 0. Medications to Continue Taking That Have Changed [facility], [address] [place], [place] [id number], [phone] START: brompheniramine/dextromethorphan/PSE (Bromfed DM oral syrup) 5 Milliliter By Mouth 4 times a day as needed for cold symptoms. Refills: 0. START: predniSONE (predniSONE 20 mg Tab) 3 Tablets By Mouth every day for 5 Days. Refills: 0. Other Medications START: brompheniramine/dextromethorphan/PSE (Bromfed DM oral syrup) 5 Milliliter By Mouth 4 times a day as needed for cold symptoms. Refills: 0. START: predniSONE (predniSONE 20 mg Tab) 2 Tablets By Mouth every day for 5 Days. Refills: 0. Medications to Continue with No Changes Other Medications epinephrine (EpiPen 2-Ze 0.3 mg injectable kit) 1 Each Intramuscular As Directed. May substitute for another brand if required by insurance or inventory. Refills: 0. fluticasone nasal (Flonase 0.05 mg/inh [place]) 2 Sprays Nasal Inhalation every day. each nostril. Refills: 0. multivitamin (Multi Vitamins oral tablet) 1 Tablets By Mouth every day. naproxen (Naprosyn 500 mg Tab) 1 Tablets By Mouth 2 times a day as needed for pain. Refills: 0. naproxen (naproxen 500 mg Tab) 1 Tablets By Mouth 2 times a day. with food. Refills: 0. ondansetron (Zofran ODT 4 mg Tab-Dis) 1 Tablets By Mouth every 6 hours. Refills: 0. ondansetron (Zofran ODT 4 mg Tab-Dis) 1 Tablets By Mouth 3 times a day. Refills: 0. promethazine (promethazine 25 mg Tab) 1 Tablets By Mouth every 4 hours. Refills: 0. PATIENT EDUCATION INFORMATION: Instructions: Acute Bronchitis, Adult Follow up: With: Address: [facility]: [address] [address] [facility] (1) In 3 days 03/01/2023 Comments: Call the office of your primary care doctor to arrange for follow-up within the above-stated timeframe. Follow-up with your primary care doctor about this ED visit. You should review your labs, imaging, and diagnoses from this ED visit with your primary care physician. If you were prescribed medications you should discuss possible side-effects and drug interactions with your pharmacist. Call 911 or go to the nearest Emergency Department if you develop any new or worsening symptoms. DIAGNOSIS: Bronchitis; Upper respiratory infection Normal [facility] ED Note-Physicianon 02-27-20 ED Note-Physician Basic Information Time Seen: Namrata CAO Juan Edenilson 02/26/2023 16:04 Chief Complaint Pt states cough and SOB x a couple of days. Worse today. Denies any productive cough. History of Present Illness 32-year-old otherwise healthy female presents ED with complaint of cough and shortness of breath over the last 2 to 3 days. Patient reports her symptoms are worse today. Patient complains of a cough which is not productive. Patient also complains of shortness of breath, especially with coughing. Patient denies any fevers or chills. Patient Dors minimal sore throat. Patient does endorse a past history of similar symptoms with episodes of bronchitis. Patient is a smoker. Patient denies any history of asthma or COPD. Patient denies any chest pain. Review of Systems Full 10 system ROS performed. Pt denies symptoms except as noted above in the HPI. Physical Exam Vitals & Measurements T: 37.1 ?C(Oral) HR: 107(Peripheral) RR: 16 BP: 115/76 SpO2: 98% HT: 160 cm WT: 85.6 kg BMI: 33.44 VITALS: I have reviewed the triage vital signs. GENERAL: Well developed, well appearing adult in no acute distress. NEURO: Alert and oriented. Moves all extremities. Face is symmetric and expressive. EYES: PERRL. No scleral icterus or conjunctival injection. No discharge. HENT: Normocephalic, atraumatic. Hearing is grossly intact. Nares grossly patent and without discharge. Mucous membranes moist. NECK: No JVD. Patient moves neck without restriction. CARDIO: Rhythm regular. Normal rate. No murmur, rub, or gallop. Pulses equal bilaterally in the upper and lower extremity. No lower extremity edema. PULM: Lungs clear to auscultation in all oneal. No wheezes, rales, or rhonchi. No conversational dyspnea. No splinting, stridor, or accessory muscle use. GI/: Abdomen is soft and non-tender. Normoactive bowel sounds. EXTREMITIES: Symmetric muscle bulk. No joint swelling. No clubbing, cyanosis, or deformity. SKIN: Warm and dry. Normal turgor. No rash or lesions appreciated. PSYCH: Mood, affect, and interaction is appropriate to the setting. Medical Decision Making MEDICAL DECISION MAKING Number and Complexity of Problems Differential Diagnosis: [] [facility] Data External documents reviewed: [] My EKG interpretation: [] My CT interpretation: [] My X-ray interpretation: [] My Ultrasound interpretation: [] Decision rules/scores evaluated: [] Discussed with: [] Treatment and Disposition ED Course: Patient presents ED with complaint of upper respirations including cough, congestion, shortness of breath. Patient is satting well on room air, is not tachypneic or tachycardic. No concern for pneumonia based on physical exam and chest x-ray. Patient with negative COVID swab. Patient did endorse a history of recurrent episodes of bronchitis, is a smoker. Patient with signs symptoms history consistent with a viral URI versus bronchitis. Patient request, patient was given prescription for steroid and albuterol inhaler which she states has helped her in the past. Return precautions to ED were discussed. Symptomatic treatment for URI discussed. Patient questions answered. Patient discharged home. [ x] The patient was diagnosed with upper respiratory infection and was not prescribed an antibiotic. [SATISFIES MIPS PERFORMANCE] [ ] The patient has competing comorbid condition within the last 12 months. The comorbid condition was [] (e.g., neutropenia, cystic fibrosis, chronic bronchitis, pulmonary edema, respiratory failure, rheumatoid lung disease). [MIPS PERFORMANCE EXCEPTION/EXCLUSION [ ] The patient is already on antibiotics, or has taken them within the last 30 days. [MIPS PERFORMANCE EXCEPTION/EXCLUSION] [ ] The patient had a competing diagnosis of [] (e.g. acute otitis media, chronic sinusitis, UTI, etc.) [MIPS PERFORMANCE EXCEPTION/EXCLUSION] [ ] The patient was diagnosed with upper respiratory infection and was prescribed or dispensed an antibiotic. [DOES NOT SATISFY MIPS PERFORMANCE] Shared decision making: [] Code status: [] Assessment/Plan Bronchitis (J40: Bronchitis, not specified as acute or chronic) Upper respiratory infection (J06.9: Acute upper respiratory infection, unspecified) Orders: albuterol, 2 puff(s), Inhalation, q4hr for 7 day(s), 8.5 gm, Refill(s) 0, [facility], 160, cm, 02/26/23 15:59:00 EDT, Height/Length Dosing, 85.6, kg, 02/26/23 15:59:00 EDT, Weight Dosing brompheniramine/dextromethorphan/PSE, 5 mL, Oral, QID for cold symptoms, 200 mL, Refill(s) 0, [facility], [facility], cm, 02/26/23 15:59:00 EDT, Height/Length Dosing, 85.6, kg, 02/26/23 15:59:00 EDT, Weight Dosing guaifenesin, 600 mg = 1 tab(s), Oral, q12hr, X 7 day(s), # 14 tab(s), Refills(s) 0, [facility], 160, cm, 02/26/23 15:59:00 EDT, Height/Length Dosing, 85.6, kg, 02/26/23 15:59:00 EDT, Weight Dosing predniSONE, 60 mg = 3 tab(s), Oral, Daily, X 5 day(s), # 15 tab(s), Refills(s) 0, Pharmacy: [facility] (more content not included)... Normal [facility] Comment on above: Result Comment: Elec tronically Signed By: Juan Ott PA-C\.br\Date and Time Signed: 02/26/23 18:46 EDT\.br\Electronically Co-Signed By: Charlie Rubalcava DO\.br\Date and Time Co-Signed: 02/26/23 18:51 EDT ED Patient Education Noteon 02-26-2023 ED Patient Education Note Pulmonary Medicine Acute Bronchitis, Adult Acute bronchitis is sudden inflammation of the main airways (bronchi) that come off the windpipe (trachea) in the lungs. The swelling causes the airways to get smaller and make more mucus than normal. This can make it hard to breathe and can cause coughing or noisy breathing (wheezing). Acute bronchitis may last several weeks. The cough may last longer. Allergies, asthma, and exposure to smoke may make the condition worse. What are the causes? This condition can be caused by germs and by substances that irritate the lungs, including: ? Cold and flu viruses. The most common cause of this condition is the virus that causes the common cold. ? Bacteria. This is less common. ? Breathing in substances that irritate the lungs, including: ? Smoke from cigarettes and other forms of tobacco. ? Dust and pollen. ? Fumes from household cleaning products, gases, or burned fuel. ? Indoor or outdoor air pollution. What increases the risk? The following factors may make you more likely to develop this condition: ? A weak body's defense system, also called the immune system. ? A condition that affects your lungs and breathing, such as asthma. What are the signs or symptoms? Common symptoms of this condition include: ? Coughing. This may bring up clear, yellow, or green mucus from your lungs (sputum). ? Wheezing. ? Runny or stuffy nose. ? Having too much mucus in your lungs (chest congestion). ? Shortness of breath. ? Aches and pains, including sore throat or chest. How is this diagnosed? This condition is usually diagnosed based on: ? Your symptoms and medical history. ? A physical exam. You may also have other tests, including tests to rule out other conditions, such as pneumonia. These tests include: ? A test of lung function. ? Test of a mucus sample to look for the presence of bacteria. ? Tests to check the oxygen level in your blood. ? Blood tests. ? Chest X-ray. How is this treated? Most cases of acute bronchitis clear up over time without treatment. Your health care provider may recommend: ? Drinking more fluids to help thin your mucus so it is easier to cough up. ? Taking inhaled medicine (inhaler) to improve air flow in and out of your lungs. ? Using a vaporizer or a humidifier. These are machines that add water to the air to help you breathe better. ? Taking a medicine that thins mucus and clears congestion (expectorant). ? Taking a medicine that prevents or stops coughing (cough suppressant). It is notcommon to take an antibiotic medicine for this condition. Follow these instructions at home: ? Take enpg-rno-odqvdku and prescription medicines only as told by your health care provider. ? Use an inhaler, vaporizer, or humidifier as told by your health care provider. ? Take two teaspoons (10 mL) of honey at bedtime to lessen coughing at night. ? Drink enough fluid to keep your urine pale yellow. ? Do not use any products that contain nicotine or tobacco. These products include cigarettes, chewing tobacco, and vaping devices, such as e-cigarettes. If you need help quitting, ask your health care provider. ? Get plenty of rest. ? Return to your normal activities as told by your health care provider. Ask your health care provider what activities are safe for you. ? Keep all follow-up visits. This is important. How is this prevented? To lower your risk of getting this condition again: ? Wash your hands often with soap and water for at least 20 seconds. If soap and water are not available, use hand earth science professor. ? Avoid contact with people who have cold symptoms. ? Try not to touch your mouth, nose, or eyes with your hands. ? Avoid breathing in smoke or chemical fumes. Breathing smoke or chemical fumes will make your condition worse. ? Get the flu shot every year. Contact a health care provider if: ? Your symptoms do not improve after 2 weeks. ? You have trouble coughing up the mucus. ? Your cough keeps you awake at night. ? You have a fever. Get help right away if you: ? Cough up blood. ? Feel pain in your chest. ? Have severe shortness of breath. ? Faint or keep feeling like you are going to faint. ? Have a severe headache. ? Have a fever or chills that get worse. These symptoms may represent a serious problem that is an emergency. Do not wait to see if the symptoms will go away. Get medical help right away. Call your local emergency services (911 in the [place] Do not drive yourself to the hospital. Summary ? Acute bronchitis is inflammation of the main airways (bronchi) that come off the windpipe (trachea) in the lungs. The swelling causes the airways to get smaller and make more mucus than normal. ? Drinking more fluids can help thin your mucus so it is easier to cough up. ? Take neam-enp-vpihaif and prescription medicin (more content not included)... Normal [facility] ED Patient Summaryon 023 ED Patient Summary (Inserted Image. Kim ble to display) [place] [id number] Patient Discharge Instructions Person Information Name: RJ ELENA Age: 32 Years Arrival Date: 02/26/2023 15:53:15 Discharge Diagnosis: Bronchitis; Upper respiratory infection Primary Care Physician: Mark Pitts DO Provider Information Primary Provider: Charlie Rubalcava DO Advanced Blower Feeder Dyed Raw Stock:Juan Ott PA-C The exam and treatment you received in the Emergency Department were for an urgent problem and are not intended as complete care. It is important that you follow up with a doctor, nurse practitioner, or physician?s administrative assistant data entry for ongoing care. If your symptoms become worse or you do not improve as expected and you are unable to reach your usual health care provider, you should return to the Emergency Department. We are available 24 hours a day. RJ ELENA has been given the following list of patient education materials, prescriptions and follow-up instructions: Follow-up Instructions: With: Address: When: Mark [facility] [address] [place] [address] [facility] () In 3 days 03/01/2023 Comments: Call the office of your primary care doctor to arrange for follow-up within the above-stated timeframe. Follow-up with your primary care doctor about this ED visit. You should review your labs, imaging, and diagnoses from this ED visit with your primary care physician. If you were prescribed medications you should discuss possible side-effects and drug interactions with your pharmacist. Call 911 or go to the nearest Emergency Department if you develop any new or worsening symptoms. In the event that this physician does not participate in your insurance network, please consult with your insurance company to find a nearby participating provider. Patient Education Materials: Acute Bronchitis, Adult A MESSAGE TO ALL PATIENTS REGARDING OPIOIDS PRESCRIPTION OPIOIDS: WHAT YOU NEED TO KNOW Prescription opioids can be used to help relieve uttmdwpl-lx-iadbrf pain and are often prescribed following a surgery or injury, or for certain health conditions. These medications can be an important part of the treatment but also come with serious risks. It is important to work with your healthcare provider to make sure you are getting the safest, most effective care. WHAT ARE THE RISKS AND SIDE EFFECTS OF OPIOID USE? Prescription opioids carry serious risks of addiction and overdose, especially with prolonged use. An opioid overdose, often marked by slowed breathing, can cause sudden . The use of prescription opioids can have a number of side effects as well, even when taken as directed: ? Tolerance?meaning you might need to take more of the medication for the same pain relief ? Physical dependence?meaning you have symptoms of withdrawal when a medication is stopped ? Increased sensitivity to pain ? Constipation ? Nausea, vomiting, and dry mouth ? Sleepiness and dizziness ? Confusion ? Depression ? Low levels of testosterone that can result in lower sex drive, energy, and strength ? Itching and sweating RISKS ARE GREATER WITH: ? History of drug misuse, substance use disorder, or overdose ? Mental health conditions (such as depression or anxiety) ? Sleep apnea ? Older age (65 years and older) ? Avoid alcohol while taking prescription opioids. Also, unless specifically advised by your health care provider, medications to avoid include: ? Benzodiazepines (such as Xanax or Valium) ? Muscle relaxants (such as Soma or Flexeril) ? Hypnotics (such as Ambien or Lunesta) ? Other prescription opioids KNOW YOUR OPTIONS Talk to your health care provider about ways to manage your pain that don?t involve prescription opioids. Some of these options may actually work better and have fewer risks and side effects. Options may include: ? Pain relievers such as acetaminophen, ibuprofen, and naproxen ? Some medication that are also used for depression or seizures ? Physical therapy and exercise ? Cognitive behavioral therapy, a psychological, goal-directed approach, in which patients learn how to modify physical, behavioral, and emotional triggers of pain and stress. IF YOU ARE PRESCRIBED OPIOIDS FOR PAIN: ? Never take opioids in greater amounts or more often than prescribed. ? Follow up with your primary health care provider. o Work together to create a plan on how to manage your pain. o Talk about ways to help manage your pain that don?t involve prescription opioids. o Talk about any and all concerns and side effects. ? Help prevent misuse and abuse o Never sell or share prescription opioids. o Never use another person?s prescription opioids. ? Store prescription opioids in a secure place and out of reach of others (this may include visitors, children, friends, and family) (more content not included)... Normal [facility] MICRO OTHER TESTSOrdered By: Juvenal Macario on 02-26-2023 Rapid COV Int NEG Ctl Pass (02/26/23 4:45 PM) Normal [facility] [place] Rapid COV Int POS Ctl Pass (02/26/23 4:45 PM) Normal [facility] [place] SARS-CoV+SARS-CoV-2 (COVID-1 9) Ag IA.rapid Ql (Resp) Not Detected (02/26/23 4:45 PM) Normal Not Detected [facility] [place] Prescriptions/Work Noteson 0 02-26-2023 Prescriptions/Work Notes [id number]:127 Normal [facility] Rapid COVID Antigen ([facility])on 02-26-2023 Rapid COV Int NEG Ctl Pass Normal [facility] Comment on above: Performed By: #### 2 [id number] ####[facility] [address] [place] [address] Rapid COV Int POS Ctl Pass Normal [facility] Comment on above: Performed By: #### 2 [id number] ####[place] [address] SARS-CoV+SARS-CoV-2 (COVID-1 9) Ag IA.rapid Ql (Resp) Not detected Normal Not Detected [facility] Comment on above: Result Comment: The Epitiroitor? System for Rapid Detection of SARS-CoV-2 is a chromatographic digital immunoassay intended for the direct and qualitative detection of SARS-CoV-2 nucleocapsid antigens in nasal swabs from individuals who are suspected of COVID-19 by their healthcare provider within the first five days of the onset of symptoms. Negative results should be treated as presumptive, do not rule out SARS-CoV-2 infection and should not be used as the sole basis for treatment or patient management decisions, including infection control decisions. Negative results should be considered in the context of a patient?s recent exposures, history and the presence of clinical signs and symptoms consistent with COVID-19, and confirmed with a molecular assay, if necessary, for patient management. For in vitro diagnostic use. In the [facility], only for use under an Emergency Use Authorization. In the [place], this test has not been FDA cleared or approved; this test has been authorized by FDA under an EUA for use by authorized laboratories; use by laboratories certified under the CLIA, 42 U.S.C. ?263a, that meet requirements to perform moderate, high, or waived complexity tests and at the Point of Care (POC), i.e., in patient care settings operating under a CLIA Certificate of Waiver, Certificate of Compliance, or Certificate of Accreditation. This test has been authorized only for the detection of proteins from SARS-CoV-2, not for any other viruses or pathogens; and, in the [place], this test is only authorized for the duration of the declaration that circumstances exist justifying the authorization of emergency use of in vitro diagnostics for detection and/or diagnosis of the virus that causes COVID-19 under Section 564(b)(1) of the Act, 21 U.S.C. ? 360bbb-3(b)(1), unless the authorization is terminated or revoked sooner. Performed By: #### 2 [id number] ####[place] [address] ADMITTED TO INTENSIVE CARE U NIT FOR CONDITION OF INTEREST:FIND:PT: NO Normal [facility] Comment on above: Performed By: #### 2 [id number] ####[place] [address] EMPLOYED IN A HEALTHCARE SETTING:FIND:PT: NO Rosario l [facility] Comment on above: Performed By: #### 2 [id number] ####[place] [id number] FIRST TEST FOR CONDITION OF INTEREST:FIND:PT: Unknown Normal [facility] Comment on above: Performed By: #### 2 [id number] ####[place] [address] HAS SYMPTOMS RELATED TO COND ITION OF INTEREST:FIND:PT: YES Normal [facility] Comment on above: Performed By: #### 2 [id number] ####[place] [id number] HOSPITALIZED FOR CONDITION O F INTEREST:FIND:PT: NO Normal [facility] Comment on above: Performed By: #### 2 [id number] ####[facility] [address] [place] [address] STATUS:FIND:PT: NO Normal [facility] Comment on above: Performed By: #### 2 [id number] ####[facility] [address] [place] [address] RESIDES IN A CONGREGATE CARE SETTING:FIND:PT: NO N ormal [facility] Comment on above: Performed By: #### 2 [id number] ####[facility] [address] [place] [address] XR Chest 2 Viewson 3 XR Chest 2 Views Exam Date/Time: 02/26/2023 16:17 EDT Reason for Exam: Cough Report IMPRESSION: NO RADIOGRAPHIC EVIDENCE OF ACTIVE DISEASE IN THE CHEST. CLINICAL INFORMATION: Cough COMPARISON: 2018 FINDINGS: 2 views. Osseous structures intact. Cardiopericardial silhouette normal. Pulmonary vasculature normal. Lungs clear. Ordering Provider: Charlie Rubalcava FINAL REPORT Dictated: 02/26/2023 4:33 pm Sharath Jimenez MD Signed (Electronic Signature): 02/26/2023 4:33 pm Signed by: Sharath Jimenez MD Transcribed by: ESTEVAN Technologist: SHELDON Technical Comments Radiation Dose: Ka,r in mGy = na DAP = na Normal [facility] In office Testingon 01-31-20 23 In office Testing [id number]:127 Normal [facility] Registrationon 01-30-2023 Registration [id number] 0CD:127 Normal [facility] ED Note-Physicianon 01-10-20 23 ED Note-Physician Basic Information Time Seen: Loyd Lange PA-C 12/31/2022 10:18 Chief Complaint patient c/o increasing pain in bilateral ears, was dx with bilateral ear infection and given drops yesterday History of Present Illness 32-year-old female reports to the emergency department with chief complaint of increasing pain behind her ears. States that she is diagnosed with a recent bilateral ear infection and given eardrops yesterday for this. States that is not helping at all. Reports that she just feels super congested and having pain. States that she cannot take NSAIDs due to having allergies to this. Reports Tylenol is not helping. Denies any fevers chills nausea vomiting. Review of Systems A 10 point review of systems is negative except as noted above. Medical and Surgical History: Reviewed and noted Social history: Lives at home Family History: Reviewed. Tobacco: User Physical Exam Vitals & Measurements T: 36.8 ?C(Oral) HR: 90(Peripheral) RR: 18 BP: 129/82 SpO2: 99% HT: 160 cm WT: 85.6 kg BMI: 33.44 General: The patient appears well and in no apparent distress. Patient is resting comfortably in chair. Afebrile Skin: Warm, dry, no pallor noted. Head: Normocephalic, atraumatic Neck: No JVD Eye: PERRLA, EOMI ENT: Moist mucus membranes. Right-sided TM is clear with no bulging noted. There is very mild debris in the right auditory ear canal, with mild swelling. Left-sided TM is clear with no bulging noted. The left auditory canal is more erythematous and swollen, but is still open enough I was able to see the TM. Cardiovascular: Regular rate normal peripheral perfusion Respiratory: No respiratory distress no accessory muscle use no obvious audible wheezing. Lung sounds clear auscultation Chest Wall: no deformity Musculoskeletal: normal ROM, no deformity, no swelling GI: No obvious distention Neurological: A&O moves all extremities equal strength and symmetry Psychiatric: Cooperative and appropriate Medical Decision Making MEDICAL DECISION MAKING Number and Complexity of Problems Differential Diagnosis: [] [facility] Data External documents reviewed: [] My EKG interpretation: [] My CT interpretation: [] My X-ray interpretation: [] My Ultrasound interpretation: [] Decision rules/scores evaluated: [] Discussed with: [] Treatment and Disposition ED Course: 32-year-old female reports emergency department with chief complaint of worsening ear pain. She was seen here yesterday, diagnosed with bilateral otitis externa. On my physical exam today, she has similar symptoms, but is not controlling the pain. On my physical exam, the left auditory ear canal is little bit worse than the right side, which appears to be similar to the exam yesterday. She can only take Tylenol for pain, which is not helping. Rest of exam of the patient is benign. Denies any fevers or chills. Discussed the importance of continuing to use the Ciprodex drops that she was prescribed. To help relieve her congestion, I did write Flonase for her, as well as tramadol to help with pain. Patient was grateful for this. Discussed return precautions. Follow-up with your primary care provider in 3 to 5 days. If symptoms worsen, do not improve, or new symptoms arise please report back to emergency department for further evaluation. The patient was understanding and agreeable to plan moving forward. Shared decision making: [] Code status: [] Assessment/Plan Bilateral otitis externa (H60.93: Unspecified otitis externa, bilateral) Orders: fluticasone nasal, 2 spray(s), Nasal, Daily, 16 gram, Refill(s) 0, each nostril, [facility], 160, cm, 12/31/22 10:20:00 EDT, Height/Length Dosing, 85.6, kg, 12/31/22 10:20:00 EDT, Weight Dosing tramadol, 50 mg = 1 tab(s), Oral, q6hr, PRN for pain, X 3 day(s), # 12 tab(s), Refills(s) 0, Pharmacy: [facility] 1985, 160, cm, 12/31/22 10:20:00 EDT, Height/Length Dosing, 85.6, kg, 12/31/22 10:20:00 EDT, Weight Dosing Disposition Plan Patient Discharge Condition Stable Discharge Disposition To home Discharge Prescription List Prescriptions Ciprodex 0.3%-0.1% Susp-Otic, 5 drop(s), Otic, BID Flonase 0.05 mg/inh [place], 2 spray(s), Nasal, Daily traMADOL 50 mg Tab, 50 mg= 1 tab(s), Oral, q6hr, PRN Follow-up With When Contact Information Mark Pitts In 3 days 01/03/2023 EDT [address] [place] [address]- Business (1) Additional Instructions: Follow-up with your primary care provider in 3 to 5 days. If symptoms worsen, do not improve, or new symptoms arise please report back to emergency department for further evaluation. Patient Education Otitis Externa Attestation Patient seen and evaluated by the physician administrative assistant data entry. Attending physician was present in the emergency department and supervised care. This visit was performed by both the physician and an APC. I performed all aspects of the MDM as documented. This report was transcribed u (more content not included)... Normal [facility] Comment on above: Result Comment: Elec tronically Signed By: Loyd Lange PA-C\.br\Date and Time Signed: 12/31/22 11:53 EDT\.br\Electronically Co-Signed By: Javier Woods DO\.br\Date and Time Co-Signed: 01/09/23 07:15 EDT Consent for Treatmenton 12-09 Consent for Treatment [id number]:127 Normal [facility] Discharge Instructionson Discharge Instructions [id number]:127 [facility] ED Clinical Summaryon 2022 ED Clinical Summary [place] [id number] ED Clinical Summary Person Information Name: RJ ELENA [place] Age: 32 Years : 1990 Sex: Female Language: Indonesian PCP: Mark Pitts DO Marital Status: Single Phone: [phone] Visit Id: Visit Reason: Ear pain; EAR PAIN Speciality: Acuity: 4 Enc Type: Emergency Med Service: Emergency Arrival: 12/31/2022 10:01:25 Discharge: 12/31/2022 10:41:31 LOS: 000 00:40 Checkin: 12/31/2022 10:01:25 Checkout: 12/31/2022 10:41:31 Dispo Type: Home (Routine DC) EVENTS: Event Name Event Status Request Date/Time Start Date/Time Complete Date/Time Arrive Complete 12/31/2022 10:01:25 12/31/2022 10:01:25 12/31/2022 10:01:25 Document Home Meds Request 12/31/2022 10:01:25 Triage Complete 12/31/2022 10:01:25 12/31/2022 10:20:35 12/31/2022 10:20:35 Registration Complete 12/31/2022 10:04:34 12/31/2022 10:04:34 12/31/2022 10:04:34 Reg Complete Request 12/31/2022 10:04:34 Reg Bed Request Complete 12/31/2022 10:04:34 12/31/2022 10:04:34 12/31/2022 10:04:34 Bed Assign Complete 12/31/2022 10:16:39 12/31/2022 10:16:39 12/31/2022 10:16:39 Dr Exam Complete 12/31/2022 10:16:39 12/31/2022 10:18:08 12/31/2022 10:18:08 RN Exam Complete 12/31/2022 10:16:39 12/31/2022 10:36:36 12/31/2022 10:36:36 Registration Request 12/31/2022 10:18:08 Dr Exam Complete 12/31/2022 10:18:40 12/31/2022 10:18:40 12/31/2022 10:18:40 Discharge Complete 12/31/2022 10:36:25 12/31/2022 10:41:35 12/31/2022 10:41:35 Transfer Complete 12/31/2022 10:41:35 12/31/2022 10:41:35 12/31/2022 10:41:35 ADDRESS: [address] [place] [address] [address] [facility] [id number] PHYS DOC NOTES: MEDICAL INFORMATION: Prescriptions Given: New Medications [facility], [address] [place], [place] [id number], [phone] fluticasone nasal (Flonase 0.05 mg/inh [place]) 2 Sprays Nasal Inhalation every day. each nostril. Refills: 0. tramadol (traMADOL 50 mg Tab) 1 Tablets By Mouth every 6 hours as needed for pain for 3 Days. Refills: 0. Medications to Continue with No Changes Other Medications brompheniramine/dextromethorphan/PSE (Bromfed DM oral syrup) 5 Milliliter By Mouth 4 times a day as needed for cold symptoms. Refills: 0. ciprofloxacin-dexamethasone otic (Ciprodex 0.3%-0.1% Susp-Otic) 5 Drops Otic 2 times a day for 7 Days. Refills: 0. epinephrine (EpiPen 2-Ze 0.3 mg injectable kit) 1 Each Intramuscular As Directed. May substitute for another brand if required by insurance or inventory. Refills: 0. multivitamin (Multi Vitamins oral tablet) 1 Tablets By Mouth every day. naproxen (Naprosyn 500 mg Tab) 1 Tablets By Mouth 2 times a day as needed for pain. Refills: 0. naproxen (naproxen 500 mg Tab) 1 Tablets By Mouth 2 times a day. with food. Refills: 0. ondansetron (Zofran ODT 4 mg Tab-Dis) 1 Tablets By Mouth 3 times a day. Refills: 0. ondansetron (Zofran ODT 4 mg Tab-Dis) 1 Tablets By Mouth every 6 hours. Refills: 0. predniSONE (predniSONE 20 mg Tab) 2 Tablets By Mouth every day for 5 Days. Refills: 0. promethazine (promethazine 25 mg Tab) 1 Tablets By Mouth every 4 hours. Refills: 0. PATIENT EDUCATION INFORMATION: Instructions: Otitis Externa Follow up: With: Address: When: [address] [address] [facility] () In 3 days 01/03/2023 Comments: Follow-up with your primary care provider in 3 to 5 days. If symptoms worsen, do not improve, or new symptoms arise please report back to emergency department for further evaluation. DIAGNOSIS: Bilateral otitis externa Normal [facility] ED Patient Education Noteon 12-31-2022 ED Patient Education Note Infectious Disease Otitis Externa Otitis externa is an infection of the outer ear canal. The outer ear canal is the area between the outside of the ear and the eardrum. Otitis externa is sometimes called swimmer's ear. What are the causes? Common causes of this condition include: ? Swimming in dirty water. ? Moisture in the ear. ? An injury to the inside of the ear. ? An object stuck in the ear. ? A cut or scrape on the outside of the ear or in the ear canal. What increases the risk? You are more likely to develop this condition if you go swimming often. What are the signs or symptoms? The first symptom of this condition is often itching in the ear. Later symptoms of the condition include: ? Swelling of the ear. ? Redness in the ear. ? Ear pain. The pain may get worse when you pull on your ear. ? Pus coming from the ear. How is this diagnosed? This condition may be diagnosed by examining the ear and testing fluid from the ear for bacteria and funguses. How is this treated? This condition may be treated with: ? Antibiotic ear drops. These are often given for 10?14 days. ? Medicines to reduce itching and swelling. Follow these instructions at home: ? If you were prescribed antibiotic ear drops, use them as told by your health care provider. Do not stop using the antibiotic even if you start to feel better. ? Take golt-evs-doxfftp and prescription medicines only as told by your health care provider. ? Avoid getting water in your ears as told by your health care provider. This may include avoiding swimming or water sports for a few days. ? Keep all follow-up visits. This is important. How is this prevented? ? Keep your ears dry. Use the corner of a towel to dry your ears after you swim or bathe. ? Avoid scratching or putting things in your ear. Doing these things can damage the ear canal or remove the protective wax that lines it, which makes it easier for bacteria and funguses to grow. ? Avoid swimming in lakes, polluted water, or swimming pools that may not have enough chlorine. Contact a health care provider if: ? You have a fever. ? Your ear is still red, swollen, painful, or draining pus after 3 days. ? Your redness, swelling, or pain gets worse. ? You have a severe headache. Get help right away if: ? You have redness, swelling, and pain or tenderness in the area behind your ear. Summary ? Otitis externa is an infection of the outer ear canal. ? Common causes include swimming in dirty water, moisture in the ear, or a cut or scrape in the ear. ? Symptoms include pain, redness, and swelling of the ear canal. ? If you were prescribed antibiotic ear drops, use them as told by your health care provider. Do not stop using the antibiotic even if you start to feel better. This information is not intended to replace advice given to you by your health care provider. Make sure you discuss any questions you have with your health care provider. Document Revised: 09/08/2021 Document Reviewed: 09/08/2021 Elsevier Patient Education ? 2022 [employer] Normal [facility] ED Patient Summaryon 023 ED Patient Summary [place] [id number] Patient Discharge Instructions Person Information Name: RJ ELENA Age: 32 Years Arrival Date: 12/31/2022 10:01:25 Discharge Diagnosis: Bilateral otitis externa Primary Care Physician: Mark Pitts DO Provider Information Primary Provider: Javier Woods DO Advanced Blower Feeder Dyed Raw Stock:None The exam and treatment you received in the Emergency Department were for an urgent problem and are not intended as complete care. It is important that you follow up with a doctor, nurse practitioner, or physician?s administrative assistant data entry for ongoing care. If your symptoms become worse or you do not improve as expected and you are unable to reach your usual health care provider, you should return to the Emergency Department. We are available 24 hours a day. RJ ELENA has been given the following list of patient education materials, prescriptions and follow-up instructions: Follow-up Instructions: With: Address: When: Mark Pitts [address] [place] [address] [phone] Business (1) In 3 days 01/03/2023 Comments: Follow-up with your primary care provider in 3 to 5 days. If symptoms worsen, do not improve, or new symptoms arise please report back to emergency department for further evaluation. In the event that this physician does not participate in your insurance network, please consult with your insurance company to find a nearby participating provider. Patient Education Materials: Otitis Externa A MESSAGE TO ALL PATIENTS REGARDING OPIOIDS PRESCRIPTION OPIOIDS: WHAT YOU NEED TO KNOW Prescription opioids can be used to help relieve elmokrmf-ey-jgxaxp pain and are often prescribed following a surgery or injury, or for certain health conditions. These medications can be an important part of the treatment but also come with serious risks. It is important to work with your healthcare provider to make sure you are getting the safest, most effective care. WHAT ARE THE RISKS AND SIDE EFFECTS OF OPIOID USE? Prescription opioids carry serious risks of addiction and overdose, especially with prolonged use. An opioid overdose, often marked by slowed breathing, can cause sudden . The use of prescription opioids can have a number of side effects as well, even when taken as directed: ? Tolerance?meaning you might need to take more of the medication for the same pain relief ? Physical dependence?meaning you have symptoms of withdrawal when a medication is stopped ? Increased sensitivity to pain ? Constipation ? Nausea, vomiting, and dry mouth ? Sleepiness and dizziness ? Confusion ? Depression ? Low levels of testosterone that can result in lower sex drive, energy, and strength ? Itching and sweating RISKS ARE GREATER WITH: ? History of drug misuse, substance use disorder, or overdose ? Mental health conditions (such as depression or anxiety) ? Sleep apnea ? Older age (65 years and older) ? Avoid alcohol while taking prescription opioids. Also, unless specifically advised by your health care provider, medications to avoid include: ? Benzodiazepines (such as Xanax or Valium) ? Muscle relaxants (such as Soma or Flexeril) ? Hypnotics (such as Ambien or Lunesta) ? Other prescription opioids KNOW YOUR OPTIONS Talk to your health care provider about ways to manage your pain that don?t involve prescription opioids. Some of these options may actually work better and have fewer risks and side effects. Options may include: ? Pain relievers such as acetaminophen, ibuprofen, and naproxen ? Some medication that are also used for depression or seizures ? Physical therapy and exercise ? Cognitive behavioral therapy, a psychological, goal-directed approach, in which patients learn how to modify physical, behavioral, and emotional triggers of pain and stress. IF YOU ARE PRESCRIBED OPIOIDS FOR PAIN: ? Never take opioids in greater amounts or more often than prescribed. ? Follow up with your primary health care provider. o Work together to create a plan on how to manage your pain. o Talk about ways to help manage your pain that don?t involve prescription opioids. o Talk about any and all concerns and side effects. ? Help prevent misuse and abuse o Never sell or share prescription opioids. o Never use another person?s prescription opioids. ? Store prescription opioids in a secure place and out of reach of others (this may include visitors, children, friends, and family). ? Safely dispose of unused prescription opioids: Find your community drug take-back program or your pharmacy mail-back program, or flush them down the toilet, following guidance from the Food and Drug Administration (www.fda.gov/Drugs/ResourcesForYou). ? Visit www.cdc.gov/drugoverdose to learn about the risks of opioids abuse and overdose. ? (more content not included)... Normal [facility] Consent for Treatmenton 12-09 Consent for Treatment [id number]:127 Normal [facility] Discharge Instructionson Discharge Instructions [id number]:127 Normal [facility] ED Clinical Summaryon 2022 ED Clinical Summary [place] [id number] ED Clinical Summary Person Information Name: MITUL ELENARONALD Saunders [facility] Age: 32 Years : 1990 Sex: Female Language: Indonesian PCP: Mark Pitts DO Marital Status: Single Phone: [phone] Visit Id: Visit Reason: Ear pain; DOUBLE EAR INFECTION Speciality: Acuity: 5 Enc Type: Emergency Med Service: Emergency Arrival: 12/30/2022 13:06:22 Discharge: 12/30/2022 13:59:33 LOS: 000 00:53 Checkin: 12/30/2022 13:06:22 Checkout: 12/30/2022 13:59:33 Dispo Type: Home (Routine DC) EVENTS: Event Name Event Status Request Date/Time Start Date/Time Complete Date/Time Arrive Complete 12/30/2022 13:06:22 12/30/2022 13:06:22 12/30/2022 13:06:22 Document Home Meds Request 12/30/2022 13:06:22 Triage Complete 12/30/2022 13:06:22 12/30/2022 13:14:40 12/30/2022 13:14:40 Registration Complete 12/30/2022 13:10:27 12/30/2022 13:10:27 12/30/2022 13:10:27 Reg Complete Request 12/30/2022 13:10:27 Reg Bed Request Complete 12/30/2022 13:10:27 12/30/2022 13:10:27 12/30/2022 13:10:27 Bed Assign Complete 12/30/2022 13:15:11 12/30/2022 13:15:11 12/30/2022 13:15:11 Dr Exam Complete 12/30/2022 13:15:11 12/30/2022 13:41:21 12/30/2022 13:41:21 RN Exam Complete 12/30/2022 13:15:11 12/30/2022 13:20:40 12/30/2022 13:20:40 Registration Request 12/30/2022 13:41:21 Discharge Complete 12/30/2022 13:49:59 12/30/2022 13:59:40 12/30/2022 13:59:40 Transfer Complete 12/30/2022 13:59:40 12/30/2022 13:59:40 12/30/2022 13:59:40 ADDRESS: [address] [place] [address] [address] [facility] [place] [place] [phone] PHYS DOC NOTES: MEDICAL INFORMATION: Prescriptions Given: New Medications [facility], [address] [place], [place] [id number], [phone] ciprofloxacin-dexamethasone otic (Ciprodex 0.3%-0.1% Susp-Otic) 5 Drops Otic 2 times a day for 7 Days. Refills: 0. Medications to Continue with No Changes Other Medications brompheniramine/dextromethorphan/PSE (Bromfed DM oral syrup) 5 Milliliter By Mouth 4 times a day as needed for cold symptoms. Refills: 0. epinephrine (EpiPen 2-Ze 0.3 mg injectable kit) 1 Each Intramuscular As Directed. May substitute for another brand if required by insurance or inventory. Refills: 0. multivitamin (Multi Vitamins oral tablet) 1 Tablets By Mouth every day. naproxen (Naprosyn 500 mg Tab) 1 Tablets By Mouth 2 times a day as needed for pain. Refills: 0. naproxen (naproxen 500 mg Tab) 1 Tablets By Mouth 2 times a day. with food. Refills: 0. ondansetron (Zofran ODT 4 mg Tab-Dis) 1 Tablets By Mouth 3 times a day. Refills: 0. ondansetron (Zofran ODT 4 mg Tab-Dis) 1 Tablets By Mouth every 6 hours. Refills: 0. predniSONE (predniSONE 20 mg Tab) 2 Tablets By Mouth every day for 5 Days. Refills: 0. promethazine (promethazine 25 mg Tab) 1 Tablets By Mouth every 4 hours. Refills: 0. PATIENT EDUCATION INFORMATION: Instructions: Follow up: With: Address: When: [place] [address] Business (1) In 3 days DIAGNOSIS: Otitis externa, left Normal [facility] ED Note-Physicianon 12-31-19 ED Note-Physician Basic Information Time Seen: Javier Woods DO 12/30/2022 13:41 Chief Complaint bilateral ear pain x 2 days. History of Present Illness 32-year-old female presents emergency department with left ear pain. Pt states that she is concerned about swimmer's ear she usually gets this in the summertime she has been swimming recently. he has had some drainage from the left ear now she is experiencing some pain in the right side as well. Minimal sore throat she also complains of some swollen lymph nodes but denies any fevers cough difficulty breathing vomiting or other complaints. No prior treatments at home. No other aggravating or relieving factors no other associated symptoms no other prior treatments or complaints. Family: Reviewed and noncontributory Social: lives at home Review of systems negative unless otherwise specified in the HPI. Physical Exam Vitals & Measurements T: 36.7 ?C(Oral) HR: 88(Peripheral) RR: 16 BP: 125/75 SpO2: 96% HT: 160 cm WT: 85.6 kg BMI: 33.44 Nurse's notes and vital signs reviewed. General: Alert, no acute distress, patient resting comfortably Patient is not toxic or lethargic. Skin: Warm, intact, no pallor noted. There is no evidence of rash at this time. Head: Normocephalic, atraumatic Eye: Normal conjunctiva Ears, Nose, Throat: Moist mucous membranes. No posterior pharyngeal erythema no exudate swelling shift or mass. No trisumus no stridor. LEFT: the ear canal is swollen and there is a considerable amount of debris noted consistent with otitis externa. The tympanic membrane appears to be intact without any additional pathology. RIGHT tympanic membrane and canal is otherwise benign may be some minimal irritation but no drainage. Neck: No meningeal signs. Mild anterior cervical lymphadenopathy Cardio: Regular Rate and Rhythm with normal peripheral perfusion Respiratory: No acute distress, no stridor, no retractions Abdomen: Soft, nontender, no masses detected. No rebound, guarding, or rigidity Neurological: Appropriate for age Psychiatric: Cooperative Medical Decision Making Patient is treated with eardrops discharged home follow-up in the outpatient setting return to ER symptoms change or worsen. Assessment/Plan Otitis externa, left (H60.92: Unspecified otitis externa, left ear) Orders: ciprofloxacin-dexamethasone otic, 5 drop(s), Otic, BID for 7 day(s), 7.5 mL, Refill(s) 0, [facility], 160, cm, 12/30/22 13:14:00 EDT, Height/Length Dosing, 85.6, kg, 12/30/22 13:14:00 EDT, Weight Dosing Disposition Plan Discharge Prescription List Prescriptions Ciprodex 0.3%-0.1% Susp-Otic, 5 drop(s), Otic, BID Follow-up With When Contact Information Mark Pitts In 3 days [address] [place] [address]- [facility] (1) Additional Instructions: Problem List/Past Medical History Ongoing None Smoker Urticaria Historical No qualifying data Procedure/Surgical History None. Medications Inpatient No active inpatient medications Home Bromfed DM oral syrup, 5 mL, Oral, QID, PRN Ciprodex 0.3%-0.1% Susp-Otic, 5 drop(s), Otic, BID EpiPen 2-Ze 0.3 mg injectable kit, 0.3 mg= 1 EA, IntraMuscular, As Directed Multi Vitamins oral tablet, 1 tab(s), Oral, Daily, Self Directed Naprosyn 500 mg Tab, 500 mg= 1 tab(s), Oral, BID, PRN naproxen 500 mg Tab, 500 mg= 1 tab(s), Oral, BID predniSONE 20 mg Tab, 40 mg= 2 tab(s), Oral, Daily promethazine 25 mg Tab, 25 mg= 1 tab(s), Oral, q4hr Zofran ODT 4 mg Tab-Dis, 4 mg= 1 tab(s), Oral, TID Zofran ODT 4 mg Tab-Dis, 4 mg= 1 tab(s), Oral, q6hr Allergies Motrin (Anaphylactic reaction) codeine (nausea) penicillin (hives) Social History Alcohol - Denies Alcohol Use, 01/28/2019 Alcohol use interferes with work or home: No. Drinks more than intended: No. Others hurt by drinking: No. Ready to change: No. Household alcohol concerns: No., 03/21/2019 Current, 03/14/2019 Current, 03/08/2019 Current, Beer, 1-2 times per month, Alcohol use interferes with work or home: No. Drinks more than intended: No. Others hurt by drinking: No. Ready to change: No. Household alcohol concerns: No., 07/17/2018 Current, 1-2 times per month, 09/22/2017 Substance Abuse - Denies Substance Abuse, 01/28/2019 Current, 03/14/2019 Current, 03/08/2019 Current, 09/22/2017 Tobacco - High Risk, 01/28/2019 10 or more cigarettes (1/2 pack or more)/day in last 30 days Tobacco Use:., 04/14/2022 Cigarettes, 08/05/2019 10 or more cigarettes (1/2 pack or more)/day in last 30 days Tobacco Use:., 03/14/2019 10 or more cigarettes (1/2 pack or more)/day in last 30 days Tobacco Use:., 03/08/2019 Cigarettes, 1 per day., 01/28/2019 10 or more cigarettes (1/2 pack or more)/day in last 30 days Tobacco Use:. Cigarettes, 07/17/2018 Smoker, current status unknown Tobacco Use:., 09/22/2017 Lab Results No qualifying data available. Diagnostic Results No qualifying data available. Normal [facility] Comment on above: Result Comment: Elec tronically Signed By: Javier Woods DO\.br\Date and Time Signed: 12/30/22 13:54 EDT ED Patient Education Noteon 12-30-2022 ED Patient Education Note Normal [facility] ED Patient Summaryon 023 ED Patient Summary [place] [id number] Patient Discharge Instructions Person Information Name: RJ ELENA Age: 32 Years Arrival Date: 12/30/2022 13:06:22 Discharge Diagnosis: Otitis externa, left Primary Care Physician: Mark Pitts DO Provider Information Primary Provider: Javier Woods DO Advanced Blower Feeder Dyed Raw Stock:None The exam and treatment you received in the Emergency Department were for an urgent problem and are not intended as complete care. It is important that you follow up with a doctor, nurse practitioner, or physician?s administrative assistant data entry for ongoing care. If your symptoms become worse or you do not improve as expected and you are unable to reach your usual health care provider, you should return to the Emergency Department. We are available 24 hours a day. RJ ELENA has been given the following list of patient education materials, prescriptions and follow-up instructions: Follow-up Instructions: With: Address: When: Mark Pitts [address] [place] [phone] Business (1) In 3 days In the event that this physician does not participate in your insurance network, please consult with your insurance company to find a nearby participating provider. Patient Education Materials: A MESSAGE TO ALL PATIENTS REGARDING OPIOIDS PRESCRIPTION OPIOIDS: WHAT YOU NEED TO KNOW Prescription opioids can be used to help relieve wbycwgvg-yo-exjaoc pain and are often prescribed following a surgery or injury, or for certain health conditions. These medications can be an important part of the treatment but also come with serious risks. It is important to work with your healthcare provider to make sure you are getting the safest, most effective care. WHAT ARE THE RISKS AND SIDE EFFECTS OF OPIOID USE? Prescription opioids carry serious risks of addiction and overdose, especially with prolonged use. An opioid overdose, often marked by slowed breathing, can cause sudden . The use of prescription opioids can have a number of side effects as well, even when taken as directed: ? Tolerance?meaning you might need to take more of the medication for the same pain relief ? Physical dependence?meaning you have symptoms of withdrawal when a medication is stopped ? Increased sensitivity to pain ? Constipation ? Nausea, vomiting, and dry mouth ? Sleepiness and dizziness ? Confusion ? Depression ? Low levels of testosterone that can result in lower sex drive, energy, and strength ? Itching and sweating RISKS ARE GREATER WITH: ? History of drug misuse, substance use disorder, or overdose ? Mental health conditions (such as depression or anxiety) ? Sleep apnea ? Older age (65 years and older) ? Avoid alcohol while taking prescription opioids. Also, unless specifically advised by your health care provider, medications to avoid include: ? Benzodiazepines (such as Xanax or Valium) ? Muscle relaxants (such as Soma or Flexeril) ? Hypnotics (such as Ambien or Lunesta) ? Other prescription opioids KNOW YOUR OPTIONS Talk to your health care provider about ways to manage your pain that don?t involve prescription opioids. Some of these options may actually work better and have fewer risks and side effects. Options may include: ? Pain relievers such as acetaminophen, ibuprofen, and naproxen ? Some medication that are also used for depression or seizures ? Physical therapy and exercise ? Cognitive behavioral therapy, a psychological, goal-directed approach, in which patients learn how to modify physical, behavioral, and emotional triggers of pain and stress. IF YOU ARE PRESCRIBED OPIOIDS FOR PAIN: ? Never take opioids in greater amounts or more often than prescribed. ? Follow up with your primary health care provider. o Work together to create a plan on how to manage your pain. o Talk about ways to help manage your pain that don?t involve prescription opioids. o Talk about any and all concerns and side effects. ? Help prevent misuse and abuse o Never sell or share prescription opioids. o Never use another person?s prescription opioids. ? Store prescription opioids in a secure place and out of reach of others (this may include visitors, children, friends, and family). ? Safely dispose of unused prescription opioids: Find your community drug take-back program or your pharmacy mail-back program, or flush them down the toilet, following guidance from the Food and Drug Administration (www.fda.gov/Drugs/ResourcesForYou). ? Visit www.cdc.gov/drugoverdose to learn about the risks of opioids abuse and overdose. ? If you believe you may be struggling with addiction, tell your health health care marketing specialist and ask for guidance or call [facility]?S National Helpline at 8-315-720-OZCX. c Source: Department of Health and Human Services/VANCLkaushik (more content not included)... [facility] Registrationon 12-27-2022 Registration [id number] D:127 [facility] Consenton 12-26-2022 Consent [id number] D:127 [facility] Registrationon 12-26-2022 Registration [id number] 0CD:127 [facility] Consent for Treatmenton 12-08 Consent for Treatment [id number]:127 [facility] Discharge Instructionson Discharge Instructions [id number]:127 [facility] ED Clinical Summaryon 2022 ED Clinical Summary [place] [id number] ED Clinical Summary Person Information Name: MITUL ELENARONALD Saunders [place] Age: 32 Years : 1990 Sex: Female Language: Indonesian PCP: Mark Pitts DO Marital Status: Single Phone: [phone] Visit Id: Visit Reason: Foot pain-swelling; ROLLED LEFT FOOT/ANKLE Speciality: Acuity: 4 Enc Type: Emergency Med Service: Emergency Arrival: 12/21/2022 13:23:04 Discharge: 12/21/2022 14:54:06 LOS: 000 01:31 Checkin: 12/21/2022 13:23:04 Checkout: 12/21/2022 14:54:06 Dispo Type: Home (Routine DC) EVENTS: Event Name Event Status Request Date/Time Start Date/Time Complete Date/Time Arrive Complete 12/21/2022 13:23:04 12/21/2022 13:23:04 12/21/2022 13:23:04 Document Home Meds Request 12/21/2022 13:23:04 Triage Complete 12/21/2022 13:23:04 12/21/2022 13:37:32 12/21/2022 13:37:32 Registration Complete 12/21/2022 13:26:38 12/21/2022 13:26:38 12/21/2022 13:26:38 Reg Complete Request 12/21/2022 13:26:38 Reg Bed Request Complete 12/21/2022 13:26:38 12/21/2022 13:26:38 12/21/2022 13:26:38 Bed Assign Complete 12/21/2022 13:33:35 12/21/2022 13:33:35 12/21/2022 13:33:35 Dr Exam Complete 12/21/2022 13:33:35 12/21/2022 13:34:24 12/21/2022 13:34:24 RN Exam Complete 12/21/2022 13:33:35 12/21/2022 13:38:34 12/21/2022 13:38:34 Registration Request 12/21/2022 13:34:24 Dr Exam Complete 12/21/2022 13:35:01 12/21/2022 13:35:01 12/21/2022 13:35:01 X-Ray Complete 12/21/2022 13:40:04 12/21/2022 13:49:52 12/21/2022 14:08:26 Wet Read Request 12/21/2022 14:08:26 Patient Care Request 12/21/2022 14:26:34 Discharge Complete 12/21/2022 14:27:23 12/21/2022 14:54:11 12/21/2022 14:54:11 Transfer Complete 12/21/2022 14:54:11 12/21/2022 14:54:11 12/21/2022 14:54:11 ADDRESS: [address] [facility] [id number] PHYS DOC NOTES: MEDICAL INFORMATION: Prescriptions Given: Medications to Continue with No Changes Other Medications brompheniramine/dextromethorphan/PSE (Bromfed DM oral syrup) 5 Milliliter By Mouth 4 times a day as needed for cold symptoms. Refills: 0. epinephrine (EpiPen 2-Ze 0.3 mg injectable kit) 1 Each Intramuscular As Directed. May substitute for another brand if required by insurance or inventory. Refills: 0. multivitamin (Multi Vitamins oral tablet) 1 Tablets By Mouth every day. naproxen (Naprosyn 500 mg Tab) 1 Tablets By Mouth 2 times a day as needed for pain. Refills: 0. naproxen (naproxen 500 mg Tab) 1 Tablets By Mouth 2 times a day. with food. Refills: 0. ondansetron (Zofran ODT 4 mg Tab-Dis) 1 Tablets By Mouth 3 times a day. Refills: 0. ondansetron (Zofran ODT 4 mg Tab-Dis) 1 Tablets By Mouth every 6 hours. Refills: 0. predniSONE (predniSONE 20 mg Tab) 2 Tablets By Mouth every day for 5 Days. Refills: 0. promethazine (promethazine 25 mg Tab) 1 Tablets By Mouth every 4 hours. Refills: 0. PATIENT EDUCATION INFORMATION: Instructions: Foot Sprain; Elastic Bandage and RICE Therapy; Ankle Sprain, Phase II Rehab; Ankle Sprain, Phase I Rehab; Ankle Sprain, [id number]-he-Rdsr Follow up: With: Address: When: Mark Pitts [address] [place] [address] [facility] () In 3 days 12/24/2022 Comments: Follow-up with your primary care provider in 3 to 5 days. If symptoms worsen, do not improve, or new symptoms arise please report back to emergency department for further evaluation. DIAGNOSIS: Left ankle sprain; Sprain of left foot Normal [facility] ED Note-Physicianon 12-22-19 ED Note-Physician Basic Information Time Seen: Loyd Lange PA-C 12/21/2022 13:34 Chief Complaint pt reports standing up and her left foot being asleep and states that she rolled her foot the wrong way. pt c/o left foot pain. msps intact History of Present Illness A 32-year-old female reports emergency department with chief complaint of left foot and left ankle pain. She states that she was at home, and stood up after her leg was falling asleep, and she rolled her foot the wrong way. Reports that it is very painful for her to walk on it. Denies taking pain medications before this. Denies hitting her head or being on any blood thinners. She reports that it just hurts whenever she puts pressure on his foot. Denies any other injuries. No cuts or lacerations. States allergies to Motrin. Review of Systems A 10 point review of systems is negative except as noted above. Medical and Surgical History: Reviewed and noted Social history: Lives at home Family History: Reviewed. Tobacco: User Physical Exam Vitals & Measurements T: 36.8 ?C(Oral) HR: 93(Peripheral) RR: 18 BP: 128/77 SpO2: 99% HT: 160 cm WT: 85.6 kg BMI: 33.44 General: The patient appears well and in no apparent distress. Patient is resting comfortably in chair, afebrile Skin: Warm, dry, no pallor noted. No lacerations or abrasions noted. Head: Normocephalic, atraumatic Neck: No JVD Eye: PERRLA, EOMI ENT: Moist mucus membranes Cardiovascular: Regular rate normal peripheral perfusion. Pedal pulses +2 bilaterally Respiratory: No respiratory distress no accessory muscle use no obvious audible wheezing Chest Wall: no deformity Musculoskeletal: limited range of motion of left foot due to pain. There is tenderness throughout the first through fifth metatarsals on palpation. Circumferential pain on palpation of the left ankle as well. No obvious deformity noted. GI: No obvious distention Neurological: A&O moves all extremities equal strength and symmetry. Full sensations Psychiatric: Cooperative and appropriate Medical Decision Making MEDICAL DECISION MAKING Number and Complexity of Problems Differential Diagnosis: [] MDM Data External documents reviewed: [] My EKG interpretation: [] My CT interpretation: [] My X-ray interpretation: reviewed My Ultrasound interpretation: [] Decision rules/scores evaluated: [] Discussed with: [] Treatment and Disposition ED Course: 32-year-old female reports to the emergency department with a chief complaint of left-sided ankle and foot pain. Reports that she fell onto her foot after she got up today. Denies any head or any other injury. Denies being on any blood thinner physical exam reveals tenderness along the first through fifth metatarsals of the left foot, as well as circumferential pain of the left ankle. No obvious deformity noted. Left foot is neurovascularly intact. Based on her concerns, we did do an x-ray of the foot and ankle. X-rays are negative for any acute fractures. I discussed with the patient. Discussed likely strain/sprain. Discussed continue to rest, ice, compress, and elevate your affected joint to relieve inflammation and swelling. You may also take ibuprofen and Tylenol to help with pain. Discussed return precautions. Follow-up with your primary care provider in 3 to 5 days. If symptoms worsen, do not improve, or new symptoms arise please report back to emergency department for further evaluation. The patient was understanding and agreeable to plan moving forward. Patient was given crutches to help with pain with ambulation. Shared decision making: [] Code status: [] Assessment/Plan Left ankle sprain (S93.402A: Sprain of unspecified ligament of left ankle, initial encounter) Sprain of left foot (S93.602A: Unspecified sprain of left foot, initial encounter) Orders: Crutches XR Ankle 3+ Views Left XR Foot 3+ Views Left Disposition Plan Patient Discharge Condition stable Discharge Disposition to home Discharge Prescription List Prescriptions No active prescription medications Follow-up With When Contact Mark Pitts In 3 days 12/24/[address] [place], [place] [id number]- Business (1) Additional Instructions: Follow-up with your primary care provider in 3 to 5 days. If symptoms worsen, do not improve, or new symptoms arise please report back to emergency department for further evaluation. Patient Education Foot Sprain Elastic Bandage and RICE Therapy Ankle Sprain, Phase II Rehab Ankle Sprain, Phase I Rehab Ankle Sprain, Sbdx-iz-Lyej Attestation Patient seen and evaluated by the physician administrative assistant data entry. Attending physician was present in the emergency department and supervised care. This visit was performed by both the physician and an APC. I performed all aspects of the MDM as documented. This report was transcribed using voice recognition software. Every effort was made to ensure accuracy, however, inadvertent (more content not included)... Normal [facility] Comment on above: Result Comment: Elec tronically Signed By: Loyd Lange PA-C\.br\Date and Time Signed: 12/21/22 16:41 EDT\.br\Electronically Co-Signed By: Charlie Rubalcava DO\.br\Date and Time Co-Signed: 12/21/22 17:24 EDT ED Patient Education Noteon 12-21-2022 ED Patient Education Note Orthopedics Foot Sprain A foot sprain is an injury to one of the ligaments in the feet. Ligaments are strong tissues that connect bones to each other. The ligament can be stretched too much. In some cases, it may tear. A tear can be either partial or complete. The severity of the sprain depends on how much of the ligament was damaged or torn. What are the causes? This condition is usually caused by suddenly twisting or pivoting your foot. What increases the risk? You are more likely to develop this condition if: ? You play a sport, such as basketball or football. ? You exercise or play a sport without first warming up your muscles. ? You start a new workout or sport. ? You suddenly increase how long or hard you exercise or play a sport. ? You have injured your foot or ankle before. What are the signs or symptoms? Symptoms of this condition start soon after an injury and include: ? Pain, especially in the arch of your foot. ? Bruising. ? Swelling. ? Being unable to walk or use your foot to support body weight. How is this diagnosed? This condition is diagnosed with a medical history and physical exam. You may also have imaging tests, such as: ? X-rays to check for broken bones (fractures). ? An MRI to see if the ligament is torn. How is this treated? Treatment for this condition depends on the severity of the sprain. Mild sprains and major sprains can be treated with: ? Rest, ice, pressure (compression), and elevation (RICE). Elevation means raising your injured foot. ? Keeping your foot in a fixed position (immobilization) for a period of time. This is done if your ligament is overstretched or partially torn. Your health care provider will apply a bandage, splint, or walking boot to keep your foot from moving until it heals. ? Using crutches or a scooter for a few weeks to avoid bearing weight on your foot while it is healing. ? Physical therapy exercises to improve movement and strength in your foot. Major sprains may also be treated with: ? Surgery. This is done if your ligament is fully torn and a procedure is needed to reconnect it to the bone. ? A cast or splint. This will be needed after surgery. A cast or splint will need to stay on your foot while it heals. Follow these instructions at home: If you have a bandage, splint, or boot: ? Wear it as told by your health care provider. Remove it only as told by your health care provider. ? Loosen it if your toes tingle, become numb, or turn cold and blue. ? Keep it clean and dry. If you have a cast: ? Do not put pressure on any part of the cast until it is fully hardened. This may take several hours. ? Do not stick anything inside the cast to scratch your skin. Doing that increases your risk for infection. ? Check the skin around the cast every day. Tell your health care provider about any concerns. ? You may put lotion on dry skin around the edges of the cast. Do not put lotion on the skin underneath the cast. ? Keep it clean and dry. Bathing ? Do not take baths, swim, or use a hot tub until your health care provider approves. Ask your health care provider if you may take showers. You may only be allowed to take sponge baths. ? If the bandage, splint, boot, or cast is not waterproof: ? Do not let it get wet. ? Cover it with a watertight covering when you take a bath or shower. Managing pain, stiffness, and swelling ? If directed, put ice on the injured area. To do this: ? If you have a removable bandage, splint, or boot, remove it as told by your health care provider. ? Put ice in a plastic bag. ? Place a towel between your skin and the bag, or between your cast and the bag. ? Leave the ice on for 20 minutes, 2?3 times per day. ? Remove the ice if your skin turns bright red. This is very important. If you cannot feel pain, heat, or cold, you have a greater risk of damage to the area. ? Move your toes often to reduce stiffness and swelling. ? Elevate the injured area above the level of your heart while you are sitting or lying down. Activity ? Do not use the injured foot to support your body weight until your health care provider says that you can. Use crutches or a scooter as told by your health care provider. ? Ask your health care provider what activities are safe for you. Do exercises as told by your health care provider. ? Gradually increase how much and how far you walk until your health care provider says it is safe to return to full activity. Driving ? Ask your health care provider if the medicine prescribed to you requires you to avoid driving or using machinery. ? Ask your health care provider when it is safe to drive if you have a bandage, splint, boot, or cast on your foot. General instructions ? Take zmud-kim-qcmgpyt and prescription medicines only as told by your health care provider. ? When you can walk without pain, wear supportive shoes t (more content not included)... Normal [facility] ED Patient Summaryon 023 ED Patient Summary (Inserted Image. Kim ble to display) [place] [id number] Patient Discharge Instructions Person Information Name: RJ ELENA Age: 32 Years Arrival Date: 12/21/2022 13:23:04 Discharge Diagnosis: Left ankle sprain; Sprain of left foot Primary Care Physician: Mark Pitts DO Provider Information Primary Provider: Charlie Rubalcava DO Advanced Blower Feeder Dyed Raw Stock:None The exam and treatment you received in the Emergency Department were for an urgent problem and are not intended as complete care. It is important that you follow up with a doctor, nurse practitioner, or physician?s administrative assistant data entry for ongoing care. If your symptoms become worse or you do not improve as expected and you are unable to reach your usual health care provider, you should return to the Emergency Department. We are available 24 hours a day. RJ ELENA has been given the following list of patient education materials, prescriptions and follow-up instructions: Follow-up Instructions: With: Address: When: Mark Pitts [address] [place], [place] [address] Business (1) In 3 days 12/24/2022 Comments: Follow-up with your primary care provider in 3 to 5 days. If symptoms worsen, do not improve, or new symptoms arise please report back to emergency department for further evaluation. In the event that this physician does not participate in your insurance network, please consult with your insurance company to find a nearby participating provider. Patient Education Materials: Foot Sprain; Elastic Bandage and RICE Therapy; Ankle Sprain, Phase II Rehab; Ankle Sprain, Phase I Rehab; Ankle Sprain, Kqjj-su-Usbq A MESSAGE TO ALL PATIENTS REGARDING OPIOIDS PRESCRIPTION OPIOIDS: WHAT YOU NEED TO KNOW Prescription opioids can be used to help relieve mhmzmgsh-mn-vnhhoz pain and are often prescribed following a surgery or injury, or for certain health conditions. These medications can be an important part of the treatment but also come with serious risks. It is important to work with your healthcare provider to make sure you are getting the safest, most effective care. WHAT ARE THE RISKS AND SIDE EFFECTS OF OPIOID USE? Prescription opioids carry serious risks of addiction and overdose, especially with prolonged use. An opioid overdose, often marked by slowed breathing, can cause sudden . The use of prescription opioids can have a number of side effects as well, even when taken as directed: ? Tolerance?meaning you might need to take more of the medication for the same pain relief ? Physical dependence?meaning you have symptoms of withdrawal when a medication is stopped ? Increased sensitivity to pain ? Constipation ? Nausea, vomiting, and dry mouth ? Sleepiness and dizziness ? Confusion ? Depression ? Low levels of testosterone that can result in lower sex drive, energy, and strength ? Itching and sweating RISKS ARE GREATER WITH: ? History of drug misuse, substance use disorder, or overdose ? Mental health conditions (such as depression or anxiety) ? Sleep apnea ? Older age (65 years and older) ? Avoid alcohol while taking prescription opioids. Also, unless specifically advised by your health care provider, medications to avoid include: ? Benzodiazepines (such as Xanax or Valium) ? Muscle relaxants (such as Soma or Flexeril) ? Hypnotics (such as Ambien or Lunesta) ? Other prescription opioids KNOW YOUR OPTIONS Talk to your health care provider about ways to manage your pain that don?t involve prescription opioids. Some of these options may actually work better and have fewer risks and side effects. Options may include: ? Pain relievers such as acetaminophen, ibuprofen, and naproxen ? Some medication that are also used for depression or seizures ? Physical therapy and exercise ? Cognitive behavioral therapy, a psychological, goal-directed approach, in which patients learn how to modify physical, behavioral, and emotional triggers of pain and stress. IF YOU ARE PRESCRIBED OPIOIDS FOR PAIN: ? Never take opioids in greater amounts or more often than prescribed. ? Follow up with your primary health care provider. o Work together to create a plan on how to manage your pain. o Talk about ways to help manage your pain that don?t involve prescription opioids. o Talk about any and all concerns and side effects. ? Help prevent misuse and abuse o Never sell or share prescription opioids. o Never use another person?s prescription opioids. ? Store prescription opioids in a secure place and out of reach of others (this may include visitors, children, friends, and family). ? Safely dispose of unused prescription opioids: Find your community drug take-back program or your pharmacy mail-back program, or flush them down the toilet, following guidance from the Food and Drug Administrati (more content not included)... Normal [facility] XR Ankle 3+ Views Lefton XR Ankle 3+ Views Left Exam Date/Time: 12/21/2022 14:08 EDT Reason for Exam: Pain Report IMPRESSION: NO EVIDENCE OF A FRACTURE OR OTHER BONE ABNORMALITY IN THE LEFT ANKLE. CLINICAL HISTORY: Pain COMPARISON: None available. FINDINGS: AP, lateral and oblique views of the left ankle demonstrates no fracture, dislocation or other bone abnormality. There is a small plantar calcaneal spur. Ordering Provider: Loyd Lange FINAL REPORT Dictated: 12/21/2022 2:10 pm Amol Venegas MD, V. Signed (Electronic Signature): 12/21/2022 2:10 pm Signed by: Amol Venegas MD, V. Transcribed by: ESTEVAN Technologist: ALEJANDRA Technical Comments Radiation Dose: Ka,r in mGy = . DAP = . Normal [facility] XR Foot 3+ Views Lefton 12-08 XR Foot 3+ Views Left Exam Date/Time: 12/21/2022 14:08 EDT Reason for Exam: Pain, Traumatic Report IMPRESSION: NEGATIVE LEFT FOOT. CLINICAL HISTORY: Pain, Traumatic COMPARISON: None available. FINDINGS: AP, lateral and oblique views of the left foot demonstrate no evidence of a fracture, dislocation, bone or joint abnormality. There is a small plantar calcaneal spur. Ordering Provider: Loyd Lange FINAL REPORT Dictated: 12/21/2022 2:10 pm Amol Venegas MD, V. Signed (Electronic Signature): 12/21/2022 2:10 pm Signed by: Amol Venegas MD, V. Transcribed by: ESTEVAN Technologist: ALEJANDRA Technical Comments Radiation Dose: Ka,r in mGy = . DAP = . Normal [facility] Registrationon 12-16-2022 Registration [id number] 0CD:127 Normal [facility] Consenton 12-15-2022 Consent [id number] D:127 Normal [facility] Coding Summary.on 09-06-2022 Coding Summary. [id number] [file] Y29s (more content not included)... Normal [facility] Coding Summary. [id number] [file] Y29s (more content not included)... Normal [facility] Discharge Instructionson Discharge Instructions [id number]:127 Normal [facility] ED Clinical Summaryon 2022 ED Clinical Summary [place] [id number] ED Clinical Summary Person Information Name: RJ ELENA [facility] Age: 32 Years : 1990 Sex: Female Language: Indonesian PCP: Mark Pitts DO Marital Status: Single Phone: [phone] Visit Id: Visit Reason: Rash; Allergic reaction - major; Shortness of breath; ALLERGIC REACTION, EPI PEN NOT WORKING Speciality: Acuity: 2 Enc Type: Emergency Med Service: Emergency Arrival: 09/05/2022 21:00:52 Discharge: 09/05/2022 22:58:31 LOS: 000 01:58 Checkin: 09/05/2022 21:00:52 Checkout: 09/05/2022 22:58:31 Dispo Type: Home (Routine DC) EVENTS: Event Name Event Status Request Date/Time Start Date/Time Complete Date/Time Arrive Complete 09/05/2022 21:00:52 09/05/2022 21:00:52 09/05/2022 21:00:52 Document Home Meds Request 09/05/2022 21:00:52 Triage Complete 09/05/2022 21:00:52 09/05/2022 21:08:25 09/05/2022 21:08:25 Bed Assign Complete 09/05/2022 21:02:44 09/05/2022 21:02:44 09/05/2022 21:02:44 Dr Exam Complete 09/05/2022 21:02:44 09/05/2022 21:03:14 09/05/2022 21:03:14 RN Exam Complete 09/05/2022 21:02:44 09/05/2022 21:50:41 09/05/2022 21:50:41 Registration Complete 09/05/2022 21:03:14 09/05/2022 21:41:54 09/05/2022 21:41:54 EKG Complete 09/05/2022 21:03:33 09/05/2022 21:07:24 Dr Exam Complete 09/05/2022 21:05:59 09/05/2022 21:05:59 09/05/2022 21:05:59 Meds Admin Complete 09/05/2022 21:11:44 09/05/2022 21:37:06 Meds Admin Complete 09/05/2022 21:12:06 09/05/2022 21:37:06 Reg Complete Request 09/05/2022 21:41:54 Reg Bed Request Complete 09/05/2022 21:41:54 09/05/2022 21:41:54 09/05/2022 21:41:54 Discharge Complete 09/05/2022 22:26:06 09/05/2022 22:58:39 09/05/2022 22:58:39 Transfer Complete 09/05/2022 22:58:39 09/05/2022 22:58:39 09/05/2022 22:58:39 ADDRESS: [address] [place] [address] [address] [facility] [phone] PHYS DOC NOTES: MEDICAL INFORMATION: Prescriptions Given: Medications to Continue Taking That Have Changed [facility] 1986, [address] [place], [place] [id number], [phone] START: predniSONE (predniSONE 20 mg Tab) 3 Tablets By Mouth every day for 7 Days. Refills: 0. Other Medications START: predniSONE (predniSONE 20 mg Tab) 2 Tablets By Mouth every day for 5 Days. Refills: 0. Medications to Continue with No Changes Other Medications brompheniramine/dextromethorphan/PSE (Bromfed DM oral syrup) 5 Milliliter By Mouth 4 times a day as needed for cold symptoms. Refills: 0. epinephrine (EpiPen 2-Ze 0.3 mg injectable kit) 1 Each Intramuscular As Directed. May substitute for another brand if required by insurance or inventory. Refills: 0. multivitamin (Multi Vitamins oral tablet) 1 Tablets By Mouth every day. naproxen (Naprosyn 500 mg Tab) 1 Tablets By Mouth 2 times a day as needed for pain. Refills: 0. naproxen (naproxen 500 mg Tab) 1 Tablets By Mouth 2 times a day. with food. Refills: 0. ondansetron (Zofran ODT 4 mg Tab-Dis) 1 Tablets By Mouth 3 times a day. Refills: 0. ondansetron (Zofran ODT 4 mg Tab-Dis) 1 Tablets By Mouth every 6 hours. Refills: 0. promethazine (promethazine 25 mg Tab) 1 Tablets By Mouth every 4 hours. Refills: 0. PATIENT EDUCATION INFORMATION: Instructions: Nate, Qoyu-wj-Gpwa Follow up: With: Address: When: KATJA MCGINNIS [address] [place] [address] Business (1) In 3 days 09/08/2022 Comments: Follow-up for further evaluation of your urticarial rashes and reactions. With: Address: When: [address] [address] Business (1) In 3 days DIAGNOSIS: Allergic reaction; Urticaria Normal [facility] ED Note-Physicianon 09-06-19 ED Note-Physician Basic Information Time Seen: Quita Clark DO 09/05/2022 21:03 Chief Complaint pt c\o sob and rash due to allergic reaction x90 min, no relief w benadryl and epipen at home History of Present Illness 32-year-old female reports to the emergency department with chief complaint of allergic reaction. She reports that she feels like she is becoming short of breath and having a rash due to allergic reaction that started 90 minutes ago. She states that she thinks it was penicillin/amoxicillin that when she was giving to her child. She reports that she has been wearing gloves with when she administered it to her child, but thinks that this may be causing her reaction. Reports that she can feel the reaction come on, and did take Benadryl as well as use her EpiPen at home, but did not help any with the rash. States that she does have a history of reactions like this in the past. States that she usually has been able to pinpoint these and what is causing this. States that she has never follow-up with an shape hand before. Denies any chest pain. Denies any feeling like her throat was closing. Review of Systems A 10 point review of systems is negative except as noted above. Medical and Surgical History: Reviewed and noted Social history: Lives at home Family History: Reviewed. Tobacco: user Physical Exam Vitals & Measurements T: 36.4 ?C(Oral) HR: 115(Peripheral) RR: 32 BP: 123/56 SpO2: 95% HT: 160 cm WT: 85.6 kg BMI: 33.44 General: The patient appears well and in no apparent distress. Patient is resting comfortably on bed. Afebrile Skin: Warm, dry, no pallor noted. Diffuse urticarial rash located throughout the patient's upper extremities and chest. This extends all the way down into her legs as well. Blanches with palpation. No warmth to palpation. Head: Normocephalic, atraumatic Neck: No JVD Eye: PERRLA, EOMI ENT: Moist mucus membranes. No throat swelling or tongue edema. Cardiovascular: Regular rate normal peripheral perfusion. Radial pulses +2 bilaterally Respiratory: No respiratory distress no accessory muscle use no obvious audible wheezing. Lung sounds clear to auscultation. Airway intact Chest Wall: no deformity Musculoskeletal: normal ROM, no deformity, no swelling GI: No obvious distention soft nontender nondistended no guarding rebounding or rigidity Neurological: A&O moves all extremities equal strength and symmetry Psychiatric: Cooperative and appropriate Medical Decision Making MEDICAL DECISION MAKING Number and Complexity of Problems Differential Diagnosis: [] [facility] Data External documents reviewed: [] My EKG interpretation: Reviewed My CT interpretation: [] My X-ray interpretation: [] My Ultrasound interpretation: [] Decision rules/scores evaluated: [] Discussed with: [] Treatment and Disposition ED Course: 32-year-old female reports emerged department with chief complaint of allergic reaction. Reports that she has little shortness of breath and a rash after reaction to unknown cause. She states that she is not sure what she got into, but is now having some feeling of chest tightening, throat closing, and a rash that is spreading throughout her body. Reports that she did take her EpiPen as well as 2 Benadryl, but it is not helping. She states that she has had reactions like this before. On physical exam of the patient, she is in no acute distress, but there is greater Cardiol type rash scattered throughout her body. Lung sounds are clear to auscultation, she has not had any nausea or vomiting. No evidence of throat swelling, or enlargement of the tongue. Patient's airway is intact. Based on the patient's symptoms, we did give the patient some Benadryl, Pepcid, and Solu-Medrol as well as IV fluids. We did watch the patient for an hour and a half here in the emergency department. It has been 3 hours since her initial presentation began. After this, I felt comfortable discharging patient home. Patient did also want to go home at this time. Patient will be started on a prescription dose of prednisone. I did write a prescription for an EpiPen as well. Patient does have a few epinephrine pen at home as well if symptoms occur again. Discussed I do want her to see her shape hand. Discussed return precautions. Follow-up with your primary care provider in 3 to 5 days. If symptoms worsen, do not improve, or new symptoms arise please report back to emergency department for further evaluation. The patient was understanding and agreeable to plan moving forward. Shared decision making: [] Code status: [] Assessment/Plan Allergic reaction (T78.40XA: Allergy, unspecified, initial encounter) Urticaria (L50.9: Urticaria, unspecified) Orders: diphenhydrAMINE, 25 mg = 0.5 mL, Injection, IV Push, Once, Stop date 09/05/22 21:11:00 EST, STAT, Start date 09/05/22 21:11:00 EST, 09/05/22 21:11:00 EST epinephrine, 0.3 mg, IntraMuscular, Once, # 1 kit(s), Refills(s) 1, Pharmacy: [facility] (more content not included)... Normal [facility] Comment on above: Result Comment: Elec tronically Signed By: Lody Lange PA-C\.br\Date and Time Signed: 09/05/22 22:31 EST\.br\Electronically Co-Signed By: Quita Clark DO.haris\Date and Time Co-Signed: 09/06/22 00:10 EST ED Patient Education Noteon 09-06-2022 ED Patient Education Note Dermatology Hives Hives are itchy, red, swollen areas on your skin. Hives can show up on any part of your body. Hives often fade within 24 hours (acute hives). New hives can show up after old ones fade. This can go on for many days or weeks (chronic hives). Hives do not spread from person to person (are not contagious). Hives are caused by your body's response to something that you are allergic to (allergen). These are sometimes called triggers. You can get hives right after being around a trigger, or hours later. What are the causes? ? Allergies to foods. ? Insect bites or stings. ? Pollen. ? Pets. ? Latex. ? Chemicals. ? Spending time in sunlight, heat, or cold. ? Exercise. ? Stress. ? Some medicines. ? Viruses. This includes the common cold. ? Infections caused by germs (bacteria). ? Allergy shots. ? Blood transfusions. Sometimes, the cause is not known. What increases the risk? ? Being a woman. ? Being allergic to foods such as: ? [place] fruits. ? Milk. ? Eggs. ? Peanuts. ? Tree nuts. ? Shellfish. ? Being allergic to: ? Medicines. ? Latex. ? Insects. ? Animals. ? Pollen. What are the signs or symptoms? ? Raised, itchy, red or white bumps or patches on your skin. These areas may: ? Get large and swollen. ? Change in shape and location. ? Stand alone or connect to each other over a large area of skin. ? Sting or hurt. ? Turn white when pressed in the center (martha). In very bad cases, your hands, feet, and face may also get swollen. This may happen if hives start deeper in your skin. How is this treated? Treatment for this condition depends on your symptoms. Treatment may include: ? Using cool, wet cloths (cool compresses) or taking cool showers to stop the itching. ? Medicines that help: ? Relieve itching (antihistamines). ? Reduce swelling (corticosteroids). ? Treat infection (antibiotics). ? A medicine (omalizumab) that is given as a shot (injection). Your doctor may prescribe this if you have hives that do not get better even after other treatments. ? In very bad cases, you may need a shot of a medicine called epinephrineto prevent a life-threatening allergic reaction (anaphylaxis). Follow these instructions at home: Medicines ? Take or apply anle-qeg-zhuplag and prescription medicines only as told by your doctor. ? If you were prescribed an antibiotic medicine, use it as told by your doctor. Do not stop using it even if you start to feel better. Skin care ? Apply cool, wet cloths to the hives. ? Do not scratch your skin. Do not rub your skin. General instructions ? Do not take hot showers or baths. This can make itching worse. ? Do not wear tight clothes. ? Use sunscreen and wear clothes that cover your skin when you are outside. ? Avoid any triggers that cause your hives. Keep a journal to help track what causes your hives. Write down: ? What medicines you take. ? What you eat and drink. ? What products you use on your skin. ? Keep all follow-up visits as told by your doctor. This is important. Contact a doctor if: ? Your symptoms are not better with medicine. ? Your joints hurt or are swollen. Get help right away if: ? You have a fever. ? You have pain in your belly (abdomen). ? Your tongue or lips are swollen. ? Your eyelids are swollen. ? Your chest or throat feels tight. ? You have trouble breathing or swallowing. These symptoms may be an emergency. Do not wait to see if the symptoms will go away. Get medical help right away. Call your local emergency services (911 in the [place] Do not drive yourself to the hospital. Summary ? Hives are itchy, red, swollen areas on your skin. ? Treatment for this condition depends on your symptoms. ? Avoid things that cause your hives. Keep a journal to help track what causes your hives. ? Take and apply akuj-inb-mcsavug and prescription medicines only as told by your doctor. ? Keep all follow-up visits as told by your doctor. This is important. This information is not intended to replace advice given to you by your health care provider. Make sure you discuss any questions you have with your health care provider. Document Released: 04/04/2009 Document Revised: 01/09/2019 Document Reviewed: 01/09/2019 Elsevier Patient Education ? 2019 [employer] Normal [facility] ED Patient Summaryon 023 ED Patient Summary [address] [address] Patient Discharge Instructions Person Information Name: RJ ELENA Age: 32 Years Arrival Date: 09/05/2022 21:00:52 Discharge Diagnosis: Allergic reaction; Urticaria Primary Care Physician: Mark Pitts DO Provider Information Primary Provider: Quita Clark DO Advanced Blower Feeder Dyed Raw Stock:None The exam and treatment you received in the Emergency Department were for an urgent problem and are not intended as complete care. It is important that you follow up with a doctor, nurse practitioner, or physician?s administrative assistant data entry for ongoing care. If your symptoms become worse or you do not improve as expected and you are unable to reach your usual health care provider, you should return to the Emergency Department. We are available 24 hours a day. RJ ELENA has been given the following list of patient education materials, prescriptions and follow-up instructions: Follow-up Instructions: With: Address: When: KATJA MCGINNIS [place] [address] Business (1) In 3 days 09/08/2022 Comments: Follow-up for further evaluation of your urticarial rashes and reactions. With: Address: When: Mark Pitts [address] [place] [address] [facility] (1) In 3 days In the event that this physician does not participate in your insurance network, please consult with your insurance company to find a nearby participating provider. Patient Education Materials: Hives, Hfcq-qy-Gpfn A MESSAGE TO ALL PATIENTS REGARDING OPIOIDS PRESCRIPTION OPIOIDS: WHAT YOU NEED TO KNOW Prescription opioids can be used to help relieve yckymnyp-yv-bmaebo pain and are often prescribed following a surgery or injury, or for certain health conditions. These medications can be an important part of the treatment but also come with serious risks. It is important to work with your healthcare provider to make sure you are getting the safest, most effective care. WHAT ARE THE RISKS AND SIDE EFFECTS OF OPIOID USE? Prescription opioids carry serious risks of addiction and overdose, especially with prolonged use. An opioid overdose, often marked by slowed breathing, can cause sudden . The use of prescription opioids can have a number of side effects as well, even when taken as directed: ? Tolerance?meaning you might need to take more of the medication for the same pain relief ? Physical dependence?meaning you have symptoms of withdrawal when a medication is stopped ? Increased sensitivity to pain ? Constipation ? Nausea, vomiting, and dry mouth ? Sleepiness and dizziness ? Confusion ? Depression ? Low levels of testosterone that can result in lower sex drive, energy, and strength ? Itching and sweating RISKS ARE GREATER WITH: ? History of drug misuse, substance use disorder, or overdose ? Mental health conditions (such as depression or anxiety) ? Sleep apnea ? Older age (65 years and older) ? Avoid alcohol while taking prescription opioids. Also, unless specifically advised by your health care provider, medications to avoid include: ? Benzodiazepines (such as Xanax or Valium) ? Muscle relaxants (such as Soma or Flexeril) ? Hypnotics (such as Ambien or Lunesta) ? Other prescription opioids KNOW YOUR OPTIONS Talk to your health care provider about ways to manage your pain that don?t involve prescription opioids. Some of these options may actually work better and have fewer risks and side effects. Options may include: ? Pain relievers such as acetaminophen, ibuprofen, and naproxen ? Some medication that are also used for depression or seizures ? Physical therapy and exercise ? Cognitive behavioral therapy, a psychological, goal-directed approach, in which patients learn how to modify physical, behavioral, and emotional triggers of pain and stress. IF YOU ARE PRESCRIBED OPIOIDS FOR PAIN: ? Never take opioids in greater amounts or more often than prescribed. ? Follow up with your primary health care provider. o Work together to create a plan on how to manage your pain. o Talk about ways to help manage your pain that don?t involve prescription opioids. o Talk about any and all concerns and side effects. ? Help prevent misuse and abuse o Never sell or share prescription opioids. o Never use another person?s prescription opioids. ? Store prescription opioids in a secure place and out of reach of others (this may include visitors, children, friends, and family). ? Safely dispose of unused prescription opioids: Find your community drug take-back program or your pharmacy mail-back program, or flush them down the toilet, following guidance from the Food and Drug Administration (www.fda.gov/Drugs/ResourcesForYou). ? Visit www.cdc.gov/drugoverdose to learn about the risks of opioid (more content not included)... [facility] Monitor Recordon 09-06-2022 Monitor Record [id number]:127 [facility] Consent for Treatmenton 08-11 Consent for Treatment [id number]:127 [facility] Discharge Instructionson Discharge Instructions [id number]:127 [facility] ED Clinical Summaryon 2022 ED Clinical Summary [address] [address] ED Clinical Summary Person Information Name: RJ ELENA [facility] Age: 32 Years : 1990 Sex: Female Language: Indonesian PCP: Mark Pitts DO Marital Status: Single Phone: [phone] Visit Id: Visit Reason: Cough; Diarrhea; Fever; EAR ACHE, SORE THROAT, FLU LIKE SYMPTOMS Speciality: Acuity: 3 Enc Type: Emergency Med Service: Emergency Arrival: 09/04/2022 12:56:58 Discharge: 09/04/2022 14:23:37 LOS: 000 01:27 Checkin: 09/04/2022 12:56:58 Checkout: 09/04/2022 14:23:37 Dispo Type: Home (Routine DC) EVENTS: Event Name Event Status Request Date/Time Start Date/Time Complete Date/Time Arrive Complete 09/04/2022 12:56:58 09/04/2022 12:56:58 09/04/2022 12:56:58 Document Home Meds Request 09/04/2022 12:56:58 Triage Complete 09/04/2022 12:56:58 09/04/2022 13:15:23 09/04/2022 13:15:23 Dr Exam Complete 09/04/2022 13:04:13 09/04/2022 13:04:13 09/04/2022 13:04:13 Registration Complete 09/04/2022 13:04:13 09/04/2022 13:06:07 09/04/2022 13:14:07 Bed Assign Complete 09/04/2022 13:06:07 09/04/2022 13:06:07 09/04/2022 13:06:07 RN Exam Complete 09/04/2022 13:06:07 09/04/2022 13:19:51 09/04/2022 13:19:51 Reg Complete Request 09/04/2022 13:14:07 Reg Bed Request Complete 09/04/2022 13:14:07 09/04/2022 13:14:07 09/04/2022 13:14:07 Pending Labs Complete 09/04/2022 13:39:43 09/04/2022 14:10:20 Lab Complete 09/04/2022 13:39:43 09/04/2022 14:10:20 Swab Complete 09/04/2022 13:39:43 09/04/2022 14:09:31 Discharge Complete 09/04/2022 14:19:36 09/04/2022 14:23:43 09/04/2022 14:23:43 Transfer Complete 09/04/2022 14:23:43 09/04/2022 14:23:43 09/04/2022 14:23:43 ADDRESS: [address] [place] [address] [address] [facility] [id number] PHYS DOC NOTES: MEDICAL INFORMATION: Prescriptions Given: New Medications [facility], [address] [place], [place] [id number], [phone] brompheniramine/dextromethorphan/PSE (Bromfed DM oral syrup) 5 Milliliter By Mouth 4 times a day as needed for cold symptoms. Refills: 0. Medications to Continue with No Changes Other Medications epinephrine (EpiPen 2-Ze 0.3 mg injectable kit) 1 Each Intramuscular As Directed. May substitute for another brand if required by insurance or inventory. Refills: 0. multivitamin (Multi Vitamins oral tablet) 1 Tablets By Mouth every day. naproxen (Naprosyn 500 mg Tab) 1 Tablets By Mouth 2 times a day as needed for pain. Refills: 0. naproxen (naproxen 500 mg Tab) 1 Tablets By Mouth 2 times a day. with food. Refills: 0. ondansetron (Zofran ODT 4 mg Tab-Dis) 1 Tablets By Mouth 3 times a day. Refills: 0. ondansetron (Zofran ODT 4 mg Tab-Dis) 1 Tablets By Mouth every 6 hours. Refills: 0. predniSONE (predniSONE 20 mg Tab) 2 Tablets By Mouth every day for 5 Days. Refills: 0. promethazine (promethazine 25 mg Tab) 1 Tablets By Mouth every 4 hours. Refills: 0. PATIENT EDUCATION INFORMATION: Instructions: Upper Respiratory Infection, Adult Follow up: With: Address: When: [place] [phone] Business (1) In 3 days 09/07/2022 Comments: Return to the emergency room if your symptoms get worse or any new symptoms DIAGNOSIS: 1:Upper respiratory infection [facility] ED Note-Physicianon 09-04-19 ED Note-Physician Basic Information Time Seen: Solo Kimble M.D. 09/04/2022 13:04 Chief Complaint Pt c/o cough, congestion, sore throat, fever ,and diarrhea x 2 says. Taking theraflu for symptoms and fever, last at 1230. History of Present Illness The patient is a 32-year-old female who presented to the emergency room with upper respiratory symptoms. The mother states her symptoms have been present since yesterday. She reports cough. The mother reports runny nose/congestion. She reports sore throats as well. She denies any trouble breathing. Reports nausea. She denies any vomiting. The patient reports diarrhea. She reports fever, chills. The patient denies any trouble breathing. She denies any abdominal pain. The patient states that her daughter was sick on Monday with cold symptoms then she started having symptoms on Monday. The patient denies any other associated symptoms. Review of Systems Additional ROS info: Except as noted in the above Review of Systems and in the History of Present Illness all other systems have been reviewed and are negative or noncontributory. Physical Exam Vitals & Measurements T: 36.6 ?C(Oral) HR: 86(Peripheral) RR: 18 BP: 108/60 SpO2: 99% HT: 160 cm WT: 85.6 kg BMI: 33.44 General: alert, no acute distress Skin: warm, dry Head: no trauma, normocephalic Neck: Trachea midline Eye: normal conjunctiva, sclera clear, PERRL, EOMI, vision unchanged ENMT: TM's clear, oral mucosa moist, no pharyngeal erythema or exudate Cardiovascular: regular rate and rhythm Respiratory: Lungs CTA, respirations non labored, breath sounds equal Gastrointestinal: soft, non distended, no tenderness, no guarding Extremities: no deformity, no trauma Neurological: Alert and oriented, speech normal, no focal neuro deficits Psychiatric: cooperative, affect appropriate for age, Medical Decision Making MEDICAL DECISION MAKING Number and Complexity of Problems Differential Diagnosis: [] [facility] Data External documents reviewed: [] My EKG interpretation: [] My CT interpretation: [] My X-ray interpretation: [] My Ultrasound interpretation: [] Decision rules/scores evaluated: [] Discussed with: [] Treatment and Disposition ED Course: The patient presented with upper respiratory symptoms. More likely her symptoms are due to viral cause. She does not appear to be toxic. COVID and influenza are negative. Will discharge patient home with Bromfed. She will follow-up with her primary care. She is instructed to return to the emergency room if her symptoms get worse or any new symptoms. Shared decision making: [] Code status: [] Assessment/Plan 1. Upper respiratory infection (J06.9: Acute upper respiratory infection, unspecified) Orders: brompheniramine/dextromethorphan/PSE, 5 mL, Oral, QID for cold symptoms, 200 mL, Refill(s) 0, [facility], 160, cm, 09/04/22 13:15:00 EST, Height/Length Dosing, 85.6, kg, 09/04/22 13:15:00 EST, Weight Dosing Influenza A&B Ag Rapid COVID Antigen ([facility]) Disposition Plan Patient Discharge Condition Stable Discharge Disposition Discharged home Discharge Prescription List Prescriptions Bromfed DM oral syrup, 5 mL, Oral, QID, PRN Follow-up With When Contact Mark Pitts In 3 days 09/07/2022 [place] [id number] [facility] (1) Additional Instructions: Return to the emergency room if your symptoms get worse or any new symptoms Patient Education Upper Respiratory Infection, Adult Problem List/Past Medical History Ongoing None Smoker Urticaria Historical No qualifying data Procedure/Surgical History None. Medications Inpatient No active inpatient medications Home Bromfed DM oral syrup, 5 mL, Oral, QID, PRN EpiPen 2-Ze 0.3 mg injectable kit, 0.3 mg= 1 EA, IntraMuscular, As Directed Multi Vitamins oral tablet, 1 tab(s), Oral, Daily, Self Directed Naprosyn 500 mg Tab, 500 mg= 1 tab(s), Oral, BID, PRN naproxen 500 mg Tab, 500 mg= 1 tab(s), Oral, BID predniSONE 20 mg Tab, 40 mg= 2 tab(s), Oral, Daily promethazine 25 mg Tab, 25 mg= 1 tab(s), Oral, q4hr Zofran ODT 4 mg Tab-Dis, 4 mg= 1 tab(s), Oral, TID Zofran ODT 4 mg Tab-Dis, 4 mg= 1 tab(s), Oral, q6hr Allergies Motrin (Anaphylactic reaction) codeine (nausea) penicillin (hives) Social History Alcohol - Denies Alcohol Use, 01/28/2019 Alcohol use interferes with work or home: No. Drinks more than intended: No. Others hurt by drinking: No. Ready to change: No. Household alcohol concerns: No., 03/21/2019 Current, 03/14/2019 Current, 03/08/2019 Current, Beer, 1-2 times per month, Alcohol use interferes with work or home: No. Drinks more than intended: No. Others hurt by drinking: No. Ready to change: No. Household alcohol concerns: No., 07/17/2018 Current, 1-2 times per month, 09/22/2017 Substance Abuse - Denies Substance Abuse, 01/28/2019 Current, 03/14/2019 Current, 03/08/2019 (more content not included)... [facility] Comment on above: Result Comment: Elec tronically Signed By: Lamin Beyer, Solo Dietz.haris\Date and Time Signed: 09/04/22 14:20 EST ED Patient Education Noteon 09-04-2022 ED Patient Education Note Infectious Disease Upper Respiratory Infection, Adult An upper respiratory infection (URI) is a common viral infection of the nose, throat, and upper air passages that lead to the lungs. The most common type of URI is the common cold. URIs usually get better on their own, without medical treatment. What are the causes? A URI is caused by a virus. You may catch a virus by: ? Breathing in droplets from an infected person's cough or sneeze. ? Touching something that has been exposed to the virus (contaminated) and then touching your mouth, nose, or eyes. What increases the risk? You are more likely to get a URI if: ? You are very young or very old. ? It is kp or winter. ? You have close contact with others, such as at a daycare, school, or health care facility. ? You smoke. ? You have long-term (chronic) heart or lung disease. ? You have a weakened disease-fighting (immune) system. ? You have nasal allergies or asthma. ? You are experiencing a lot of stress. ? You work in an area that has poor air circulation. ? You have poor nutrition. What are the signs or symptoms? A URI usually involves some of the following symptoms: ? Runny or stuffy (congested) nose. ? Sneezing. ? Cough. ? Sore throat. ? Headache. ? Fatigue. ? Fever. ? Loss of appetite. ? Pain in your forehead, behind your eyes, and over your cheekbones (sinus pain). ? Muscle aches. ? Redness or irritation of the eyes. ? Pressure in the ears or face. How is this diagnosed? This condition may be diagnosed based on your medical history and symptoms, and a physical exam. Your health care provider may use a cotton swab to take a mucus sample from your nose (nasal swab). This sample can be tested to determine what virus is causing the illness. How is this treated? URIs usually get better on their own within 7?10 days. You can take steps at home to relieve your symptoms. Medicines cannot cure URIs, but your health care provider may recommend certain medicines to help relieve symptoms, such as: ? Hgop-tsb-sbdueyo cold medicines. ? Cough suppressants. Coughing is a type of defense against infection that helps to clear the respiratory system, so take these medicines only as recommended by your health care provider. ? Fever-reducing medicines. Follow these instructions at home: Activity ? Rest as needed. ? If you have a fever, stay home from work or school until your fever is gone or until your health care provider says you are no longer contagious. Your health care provider may have you wear a face mask to prevent your infection from spreading. Relieving symptoms ? Gargle with a salt-water mixture 3?4 times a day or as needed. To make a salt-water mixture, completely dissolve ??1 tsp of salt in 1 cup of warm water. ? Use a cool-mist humidifier to add moisture to the air. This can help you breathe more easily. Eating and drinking ? Drink enough fluid to keep your urine pale yellow. ? Eat soups and other clear broths. General instructions ? Take paro-xsq-txbpvhe and prescription medicines only as told by your health care provider. These include cold medicines, fever reducers, and cough suppressants. ? Do not use any products that contain nicotine or tobacco, such as cigarettes and e-cigarettes. If you need help quitting, ask your health care provider. ? Stay away from secondhand smoke. ? Stay up to date on all immunizations, including the yearly (annual) flu vaccine. ? Keep all follow-up visits as told by your health care provider. This is important. How to prevent the spread of infection to others ? URIs can be passed from person to person (are contagious). To prevent the infection from spreading: ? Wash your hands often with soap and water. If soap and water are not available, use hand earth science professor. ? Avoid touching your mouth, face, eyes, or nose. ? Cough or sneeze into a tissue or your sleeve or elbow instead of into your hand or into the air. Contact a health care provider if: ? You are getting worse instead of better. ? You have a fever or chills. ? Your mucus is brown or red. ? You have yellow or brown discharge coming from your nose. ? You have pain in your face, especially when you bend forward. ? You have swollen neck glands. ? You have pain while swallowing. ? You have white areas in the back of your throat. Get help right away if: ? You have shortness of breath that gets worse. ? You have severe or persistent: ? Headache. ? Ear pain. ? Sinus pain. ? Chest pain. ? You have chronic lung disease along with any of the following: ? Wheezing. ? Prolonged cough. ? Coughing up blood. ? A change in your usual mucus. ? You have a stiff neck. ? You have changes in your: ? Vision. ? Hearing. ? Thinking. ? Mood. Summary ? An upper respiratory infection (URI) is a common infecti (more content not included)... Normal [facility] ED Patient Summaryon 023 ED Patient Summary [place] [id number] Patient Discharge Instructions Person Information Name: RJ ELENA Age: 32 Years Arrival Date: 09/04/2022 12:56:58 Discharge Diagnosis: 1:Upper respiratory infection Primary Care Physician: Mark Pitts DO Provider Information Primary Provider: Solo Kimble M.D. Advanced Blower Feeder Dyed Raw Stock:None The exam and treatment you received in the Emergency Department were for an urgent problem and are not intended as complete care. It is important that you follow up with a doctor, nurse practitioner, or physician?s administrative assistant data entry for ongoing care. If your symptoms become worse or you do not improve as expected and you are unable to reach your usual health care provider, you should return to the Emergency Department. We are available 24 hours a day. RJ ELENA has been given the following list of patient education materials, prescriptions and follow-up instructions: Follow-up Instructions: With: Address: When: Mark Pitts [address] [place] [id number] Business (1) In 3 days 09/07/2022 Comments: Return to the emergency room if your symptoms get worse or any new symptoms In the event that this physician does not participate in your insurance network, please consult with your insurance company to find a nearby participating provider. Patient Education Materials: Upper Respiratory Infection, Adult A MESSAGE TO ALL PATIENTS REGARDING OPIOIDS PRESCRIPTION OPIOIDS: WHAT YOU NEED TO KNOW Prescription opioids can be used to help relieve shggrsjq-mp-yypnax pain and are often prescribed following a surgery or injury, or for certain health conditions. These medications can be an important part of the treatment but also come with serious risks. It is important to work with your healthcare provider to make sure you are getting the safest, most effective care. WHAT ARE THE RISKS AND SIDE EFFECTS OF OPIOID USE? Prescription opioids carry serious risks of addiction and overdose, especially with prolonged use. An opioid overdose, often marked by slowed breathing, can cause sudden . The use of prescription opioids can have a number of side effects as well, even when taken as directed: ? Tolerance?meaning you might need to take more of the medication for the same pain relief ? Physical dependence?meaning you have symptoms of withdrawal when a medication is stopped ? Increased sensitivity to pain ? Constipation ? Nausea, vomiting, and dry mouth ? Sleepiness and dizziness ? Confusion ? Depression ? Low levels of testosterone that can result in lower sex drive, energy, and strength ? Itching and sweating RISKS ARE GREATER WITH: ? History of drug misuse, substance use disorder, or overdose ? Mental health conditions (such as depression or anxiety) ? Sleep apnea ? Older age (65 years and older) ? Avoid alcohol while taking prescription opioids. Also, unless specifically advised by your health care provider, medications to avoid include: ? Benzodiazepines (such as Xanax or Valium) ? Muscle relaxants (such as Soma or Flexeril) ? Hypnotics (such as Ambien or Lunesta) ? Other prescription opioids KNOW YOUR OPTIONS Talk to your health care provider about ways to manage your pain that don?t involve prescription opioids. Some of these options may actually work better and have fewer risks and side effects. Options may include: ? Pain relievers such as acetaminophen, ibuprofen, and naproxen ? Some medication that are also used for depression or seizures ? Physical therapy and exercise ? Cognitive behavioral therapy, a psychological, goal-directed approach, in which patients learn how to modify physical, behavioral, and emotional triggers of pain and stress. IF YOU ARE PRESCRIBED OPIOIDS FOR PAIN: ? Never take opioids in greater amounts or more often than prescribed. ? Follow up with your primary health care provider. o Work together to create a plan on how to manage your pain. o Talk about ways to help manage your pain that don?t involve prescription opioids. o Talk about any and all concerns and side effects. ? Help prevent misuse and abuse o Never sell or share prescription opioids. o Never use another person?s prescription opioids. ? Store prescription opioids in a secure place and out of reach of others (this may include visitors, children, friends, and family). ? Safely dispose of unused prescription opioids: Find your community drug take-back program or your pharmacy mail-back program, or flush them down the toilet, following guidance from the Food and Drug Administration (www.fda.gov/Drugs/ResourcesForYou). ? Visit www.cdc.gov/drugoverdose to learn about the risks of opioids abuse and overdose. ? If you believe you may be struggling with addiction, tell your health care p (more content not included)... Normal [facility] Influenza A&B Agon Influenzae A Ag Negative Normal Negative [facility] Comment on above: Performed By: #### 2 [id number], [id number] #### [facility] Laboratory [address] [place] [address] Influenzae B Ag Negative Normal Negative [facility] Comment on above: Result Comment: Test sensitivity and specificity vary for age group, specimen type, antigen types, and prevalence of disease. Test results must be evaluated in conjunction with other clinical data available to the physician. Individuals who received nasally administered Influenza A vaccine may have positive test results up to 3 days after vaccination. Performed By: #### 2 [id number], [id number] #### [facility] [address] [place] [address] Prescriptions/Work Noteson 0 09-04-2022 Prescriptions/Work Notes [id number]:127 Normal [facility] Rapid COVID Antigen ([facility])on 09-04-2022 Rapid COV Int NEG Ctl Pass Normal [facility] Comment on above: Performed By: #### 2 [id number], [id number] ####[facility] [address] [place] [address] Rapid COV Int POS Ctl Pass Normal Fis her [facility] Comment on above: Performed By: #### 2 [id number], [id number] ####Helder [facility] [address] [place] [address] SARS-CoV+SARS-CoV-2 (COVID-1 9) Ag IA.rapid Ql (Resp) Not detected Normal Not Detected [facility] Comment on above: Result Comment: The [employer]? System for Rapid Detection of SARS-CoV-2 is a chromatographic digital immunoassay intended for the direct and qualitative detection of SARS-CoV-2 nucleocapsid antigens in nasal swabs from individuals who are suspected of COVID-19 by their healthcare provider within the first five days of the onset of symptoms. Negative results should be treated as presumptive, do not rule out SARS-CoV-2 infection and should not be used as the sole basis for treatment or patient management decisions, including infection control decisions. Negative results should be considered in the context of a patient?s recent exposures, history and the presence of clinical signs and symptoms consistent with COVID-19, and confirmed with a molecular assay, if necessary, for patient management. For in vitro diagnostic use. In the [place], only for use under an Emergency Use Authorization. In the [place], this test has not been FDA cleared or approved; this test has been authorized by FDA under an EUA for use by authorized laboratories; use by laboratories certified under the CLIA, 42 U.S.C. ?263a, that meet requirements to perform moderate, high, or waived complexity tests and at the Point of Care (POC), i.e., in patient care settings operating under a CLIA Certificate of Waiver, Certificate of Compliance, or Certificate of Accreditation. This test has been authorized only for the detection of proteins from SARS-CoV-2, not for any other viruses or pathogens; and, in the [place], this test is only authorized for the duration of the declaration that circumstances exist justifying the authorization of emergency use of in vitro diagnostics for detection and/or diagnosis of the virus that causes COVID-19 under Section 564(b)(1) of the Act, 21 U.S.C. ? 360bbb-3(b)(1), unless the authorization is terminated or revoked sooner. Performed By: #### 2 [id number], [id number] ####[facility] [address] [place] [address] ADMITTED TO INTENSIVE CARE U NIT FOR CONDITION OF INTEREST:FIND:PT: NO Normal [facility] Comment on above: Performed By: #### 2 [id number], [id number] ####[place] [address] EMPLOYED IN A HEALTHCARE SETTING:FIND:PT: NO Rosario l [facility] Comment on above: Performed By: #### 2 [id number], [id number] ####[place] [address] FIRST TEST FOR CONDITION OF INTEREST:FIND:PT: Unknown Normal [facility] Comment on above: Performed By: #### 2 [id number], [id number] ####[place] [address] HAS SYMPTOMS RELATED TO COND ITION OF INTEREST:FIND:PT: YES Normal [facility] Comment on above: Performed By: #### 2 [id number], [id number] ####[place] [address] HOSPITALIZED FOR CONDITION O F INTEREST:FIND:PT: NO Normal [facility] Comment on above: Performed By: #### 2 [id number], [id number] ####[place] [address] STATUS:FIND:PT: Unknown Normal [facility] Comment on above: Performed By: #### 2 [id number], [id number] ####[place] [address] RESIDES IN A CONGREGATE CARE SETTING:FIND:PT: NO N ormal [facility] Comment on above: Performed By: #### 2 [id number], [id number] ####[place] [address] Coding Summary.on 01-19-2023 Coding Summary. CD:[id number] [file] [id number] (more content not included)... Normal [facility] ED Note-Physicianon 07-28-19 ED Note-Physician Basic Information Time Seen: Juan Ott PA-C 07/27/2022 10:11 Chief Complaint patient c/o right ankle pain that started last week. denies injury- thinks pain is from overuse/ frequent ankle rolls History of Present Illness Patient is a 32-year-old female presenting the ED with complaint of right ankle pain. Patient states her ankle pain began last week. Patient complains of a sharp pain of her right ankle most prominent with weightbearing as well as dorsiflexion of her ankle joint. Patient reports that she is on her feet for work and has rolled her ankle several times in the last week but denies any 1 specific injury with which her pain started. Patient denies any past history of ankle injury. Patient denies any past history of similar symptoms. Patient reports she is been taking Tylenol for symptoms with little relief. Patient denies any history of gout. Patient denies any wheezing surveillance. Patient denies any history of IV drug use. Patient reports to being otherwise healthy. Patient does report an allergy to ibuprofen which she describes as an anaphylactic reaction. Family history: Reviewed and noncontributory Social history: Reviewed and noncontributory Review of Systems Full 10 system ROS performed. Pt denies symptoms except as noted above in the HPI. Physical Exam Vitals & Measurements T: 36.8 ?C(Oral) HR: 88(Peripheral) RR: 18 BP: 128/84 SpO2: 100% HT: 160 cm WT: 83 kg BMI: 32.42 General: Pt is in NAD, nontoxic appearing Skin: Pt skin is warm and dry, no rashes or lesions appreciated HEENT: Atraumatic, normocephalic. Pulmonary: Breathing normally, no respiratory distress, Cardiovascular: Regular rate, good peripheral perfusion, fast palpable DP and PT pulses bilaterally. Musculoskeletal: Pain with passive and active dorsiflexion of right ankle. Patient has minimal swelling, no bruising over the lateral aspect of her right ankle. Neurological: Pt is alert and oriented. Sensation grossly intact in upper and lower extremities bilaterally. Lymphatic: No lymphadenopathy appreciated. No peripheral edema appreciated Psychiatric: Pt is cooperative, communicative, appropriately reactive Medical Decision Making MEDICAL DECISION MAKING Number and Complexity of Problems Differential Diagnosis: Ankle sprain/strain, fracture, gout, septic arthritis MDM Data External documents reviewed: [] My EKG interpretation: [] My CT interpretation: [] My X-ray interpretation: No evidence of acute osseous abnormality My Ultrasound interpretation: [] Decision rules/scores evaluated: [place] ankle rule, cannot rule out based on location of pain Discussed with: [] Treatment and Disposition ED Course: Patient presents ED for evaluation of right ankle pain. Patient has no warmth or redness consistent with gout or septic arthritis, patient physical exam and history nonconcerning for either gout or septic arthritis. No evidence of fracture or other acute osseous abnormality on x-ray. Patient most likely with ankle sprain strain. RICE therapy discussed with patient, patient given ankle wrap. Patient declined pain medication in the ED. Patient given a work note for light duty until she can follow-up with her PCP. Patient questions answered. Patient discharged home. Shared decision making: [] Code status: [] Assessment/Plan Ankle sprain (S93.409A: Sprain of unspecified ligament of unspecified ankle, initial encounter) Orders: Alexei Wrap XR Ankle 3+ Views Right Disposition Plan Patient Discharge Condition Stable Discharge Disposition To home Discharge Prescription List Prescriptions No active prescription medications Follow-up With When Contact Information Mark Pitts In 3 days 07/30/2022 EST [address] [place] [address]- Business (1) Additional Instructions: Patient Education Elastic Bandage and RICE Therapy Ankle Sprain Attestation Patient seen and evaluated by the physician administrative assistant data entry. Attending physician was present in the emergency department and supervised care. This visit was performed by both the physician and an APC. I performed all aspects of the MDM as documented. This report was transcribed using voice recognition software. Every effort was made to ensure accuracy, however, inadvertently computerized bindery assistant mistakes may be present. Appropriate healthcare PPE was used in evaluating this patient. The patient was placed in a mask. The healthcare provider was wearing mask, gloves, and utilizing proper hand hygiene. All equipment was properly cleansed Problem List/Past Medical History Ongoing None Smoker Urticaria Historical No qualifying data Procedure/Surgical History None. Medications Inpatient No active inpatient medications Home EpiPen 2-Ze 0.3 mg injectable kit, 0.3 mg= 1 EA, IntraMuscular, As Directed Multi Vitamins oral tablet, 1 tab(s), Oral, Daily, Self Directed Naprosyn 500 mg Tab, 500 mg= 1 tab(s (more content not included)... Normal [facility] Comment on above: Result Comment: Elec tronically Signed By: Juan Ott PA-C\.br\Date and Time Signed: 07/27/22 12:06 EST\.br\Electronically Co-Signed By: Saúl Gaspar MD\.br\Date and Time Co- Signed: 07/28/22 07:23 EST Consent for Treatmenton 07-10 Consent for Treatment [id number]:127 Normal [facility] Discharge Instructionson Discharge Instructions [id number]:127 Normal [facility] ED Clinical Summaryon 2022 ED Clinical Summary (Inserted Image. Kim ble to display) [address] [address] ED Clinical Summary Person Information Name: RJ ELENA Calista/[facility] [place] Age: 32 Years : 1990 Sex: Female Language: Indonesian PCP: Mark Pitts DO Marital Status: Single Phone: [phone] Visit Id: Visit Reason: Ankle pain-swelling; RIGHT ANKLE PAIN Speciality: Acuity: 4 Enc Type: Emergency Med Service: Emergency Arrival: 07/27/2022 10:09:44 Discharge: 07/27/2022 11:34:44 LOS: 000 01:25 Checkin: 07/27/2022 10:09:44 Checkout: 07/27/2022 11:34:44 Dispo Type: Home (Routine DC) EVENTS: Event Name Event Status Request Date/Time Start Date/Time Complete Date/Time Arrive Complete 07/27/2022 10:09:44 07/27/2022 10:09:44 07/27/2022 10:09:44 Document Home Meds Request 07/27/2022 10:09:44 Triage Complete 07/27/2022 10:09:44 07/27/2022 10:15:41 07/27/2022 10:15:41 Bed Assign Complete 07/27/2022 10:11:27 07/27/2022 10:11:27 07/27/2022 10:11:27 Dr Exam Complete 07/27/2022 10:11:27 07/27/2022 10:11:48 07/27/2022 10:11:48 RN Exam Complete 07/27/2022 10:11:27 07/27/2022 10:16:55 07/27/2022 10:16:55 Registration Complete 07/27/2022 10:11:48 07/27/2022 10:47:03 07/27/2022 10:47:03 X-Ray Complete 07/27/2022 10:35:40 07/27/2022 10:37:04 07/27/2022 10:44:16 Wet Read Request 07/27/2022 10:44:16 Reg Complete Request 07/27/2022 10:47:03 Reg Bed Request Complete 07/27/2022 10:47:03 07/27/2022 10:47:03 07/27/2022 10:47:03 Patient Care Complete 07/27/2022 11:25:24 07/27/2022 11:34:14 Discharge Complete 07/27/2022 11:25:58 07/27/2022 11:34:49 07/27/2022 11:34:49 Transfer Complete 07/27/2022 11:34:49 07/27/2022 11:34:49 07/27/2022 11:34:49 ADDRESS: [address] [place] [address] [address] [facility] [phone] [facility] DOC NOTES: MEDICAL INFORMATION: Prescriptions Given: Medications to Continue with No Changes Other Medications epinephrine (EpiPen 2-Ze 0.3 mg injectable kit) 1 Each Intramuscular As Directed. May substitute for another brand if required by insurance or inventory. Refills: 0. multivitamin (Multi Vitamins oral tablet) 1 Tablets By Mouth every day. naproxen (Naprosyn 500 mg Tab) 1 Tablets By Mouth 2 times a day as needed for pain. Refills: 0. naproxen (naproxen 500 mg Tab) 1 Tablets By Mouth 2 times a day. with food. Refills: 0. ondansetron (Zofran ODT 4 mg Tab-Dis) 1 Tablets By Mouth 3 times a day. Refills: 0. ondansetron (Zofran ODT 4 mg Tab-Dis) 1 Tablets By Mouth every 6 hours. Refills: 0. predniSONE (predniSONE 20 mg Tab) 2 Tablets By Mouth every day for 5 Days. Refills: 0. promethazine (promethazine 25 mg Tab) 1 Tablets By Mouth every 4 hours. Refills: 0. PATIENT EDUCATION INFORMATION: Instructions: Elastic Bandage and RICE Therapy; Ankle Sprain Follow up: With: Address: When: [place] [address] Business (1) In 3 days 07/30/2022 DIAGNOSIS: Ankle sprain Normal [facility] ED Patient Education Noteon 07-27-2022 ED Patient Education Note Orthopedics Elastic Bandage and RICE Therapy Elastic bandages come in different shapes and sizes. They generally provide support to your injury and reduce swelling while you are healing, but they can perform different functions. Your health care provider will help you to decide what is best for your protection, recovery, or rehabilitation after an injury. The routine care of many injuries includes rest, ice, compression, and elevation (RICE therapy). RICE therapy is often recommended for injuries to soft tissues, such as muscle strain, sprains, bruises, and overuse injuries. It can also be used for some bone injuries. Using RICE therapy can help to relieve pain and lessen swelling. What are some general tips for using an elastic bandage? ? Use the bandage as directed by the maker of the bandage that you are using. ? Do not wrap the bandage too tightly. This may block (cut off) the circulation in the arm or leg in the area below the bandage. ? If part of your body beyond the bandage becomes blue, numb, cold, swollen, or more painful, your bandage is probably too tight. If this occurs, remove your bandage and reapply it more loosely. ? Remove and reapply an elastic bandage every 3?4 hours or as told by your health care provider. ? See your health care provider if the bandage seems to be making your problems worse rather than better. How to care for your injury with RICE therapy Rest Rest your injury. This may help with the healing process. Rest usually involves limiting your normal activities and not using the injured part of your body. Generally, you can return to your normal activities when your health care provider says it is okay and you can do them without much discomfort. If you rest the injury too much, it may not heal as well. Some injuries heal better with early movement instead of resting for too long. Talk with your health care provider about how you should limit your activities and whether you should start bpuvy-gm-igydro exercises for your injury. Ice Ice your injury to lessen swelling and pain. Do not apply ice directly to your skin. ? Put ice in a plastic bag. ? Place a towel between your skin and the bag. ? Leave the ice on for 20 minutes, 2?3 times a day. Use ice on as many days as told by your health care provider. Compression Put pressure (compression) on your injured area to control swelling, give support, and help with discomfort. Compression may be done with an elastic bandage. Elevation Raise (elevate) your injured area to lessen swelling and pain. If possible, elevate your injured area at or above the level of your heart or the center of your chest. Contact a health care provider if: ? Your pain and swelling continue. ? Your symptoms are getting worse rather than improving. Having these problems may mean that you need further evaluation or imaging tests, such as X-rays or an MRI. Sometimes, X-rays may not show a small broken bone (fracture) until days after the injury happened. Make a follow-up appointment with your health care provider. Ask your health care provider, or the department that is doing the imaging test, when your results will be ready. Get help right away if: ? You have sudden severe pain at or below the area of your injury. ? You have redness or increased swelling around your injury. ? You have tingling or numbness at or below the area of your injury and it does not improve after you remove the elastic bandage. Summary ? Elastic bandages provide support to your injury and reduce swelling while you are healing. Your health care provider will help you decide which type of elastic bandage is best for your injury. ? Do not wrap the bandage too tightly. This may block (cut off) the circulation in the arm or leg in the area below the bandage. ? Putting pressure (compression) on your injured area with an elastic bandage is part of RICE therapy. RICE therapy includes rest, ice, compression, and elevation. This treatment is recommended for the routine care of many injuries. This information is not intended to replace advice given to you by your health care provider. Make sure you discuss any questions you have with your health care provider. Document Released: 12/16/2002 Document Revised: 03/16/2018 Document Reviewed: 03/16/2018 [employer] Patient Education ? 2019 [employer]. Ankle Sprain An ankle sprain is a stretch or tear in a ligament in the ankle. Ligaments are tissues that connect bones to each other. The two most common types of ankle sprains are: ? Inversion sprain. This happens when the foot turns inward and the ankle rolls outward. It affects the ligament on the outside of the foot (lateral ligament). ? Eversion sprain. This happens when the foot turns outward and the ankle rolls inward. It affects the ligament on the inner side of the foot (medial ligament). What are the cau (more content not included)... Normal [facility] ED Patient Summaryon 023 ED Patient Summary [place] [id number] Patient Discharge Instructions Person Information Name: RJ ELENA Age: 32 Years Arrival Date: 07/27/2022 10:09:44 Discharge Diagnosis: Ankle sprain Primary Care Physician: Mark Pitts DO Provider Information Primary Provider: Advanced Blower Feeder Dyed Raw Stock:Juan Ott PA-C The exam and treatment you received in the Emergency Department were for an urgent problem and are not intended as complete care. It is important that you follow up with a doctor, nurse practitioner, or physician?s administrative assistant data entry for ongoing care. If your symptoms become worse or you do not improve as expected and you are unable to reach your usual health care provider, you should return to the Emergency Department. We are available 24 hours a day. RJ ELENA has been given the following list of patient education materials, prescriptions and follow-up instructions: Follow-up Instructions: With: Address: When: [place] [address] [facility] (1) In 3 days 07/30/2022 In the event that this physician does not participate in your insurance network, please consult with your insurance company to find a nearby participating provider. Patient Education Materials: Elastic Bandage and RICE Therapy; Ankle Sprain A MESSAGE TO ALL PATIENTS REGARDING OPIOIDS PRESCRIPTION OPIOIDS: WHAT YOU NEED TO KNOW Prescription opioids can be used to help relieve ajwytvqv-ox-cvcmng pain and are often prescribed following a surgery or injury, or for certain health conditions. These medications can be an important part of the treatment but also come with serious risks. It is important to work with your healthcare provider to make sure you are getting the safest, most effective care. WHAT ARE THE RISKS AND SIDE EFFECTS OF OPIOID USE? Prescription opioids carry serious risks of addiction and overdose, especially with prolonged use. An opioid overdose, often marked by slowed breathing, can cause sudden . The use of prescription opioids can have a number of side effects as well, even when taken as directed: ? Tolerance?meaning you might need to take more of the medication for the same pain relief ? Physical dependence?meaning you have symptoms of withdrawal when a medication is stopped ? Increased sensitivity to pain ? Constipation ? Nausea, vomiting, and dry mouth ? Sleepiness and dizziness ? Confusion ? Depression ? Low levels of testosterone that can result in lower sex drive, energy, and strength ? Itching and sweating RISKS ARE GREATER WITH: ? History of drug misuse, substance use disorder, or overdose ? Mental health conditions (such as depression or anxiety) ? Sleep apnea ? Older age (65 years and older) ? Avoid alcohol while taking prescription opioids. Also, unless specifically advised by your health care provider, medications to avoid include: ? Benzodiazepines (such as Xanax or Valium) ? Muscle relaxants (such as Soma or Flexeril) ? Hypnotics (such as Ambien or Lunesta) ? Other prescription opioids KNOW YOUR OPTIONS Talk to your health care provider about ways to manage your pain that don?t involve prescription opioids. Some of these options may actually work better and have fewer risks and side effects. Options may include: ? Pain relievers such as acetaminophen, ibuprofen, and naproxen ? Some medication that are also used for depression or seizures ? Physical therapy and exercise ? Cognitive behavioral therapy, a psychological, goal-directed approach, in which patients learn how to modify physical, behavioral, and emotional triggers of pain and stress. IF YOU ARE PRESCRIBED OPIOIDS FOR PAIN: ? Never take opioids in greater amounts or more often than prescribed. ? Follow up with your primary health care provider. o Work together to create a plan on how to manage your pain. o Talk about ways to help manage your pain that don?t involve prescription opioids. o Talk about any and all concerns and side effects. ? Help prevent misuse and abuse o Never sell or share prescription opioids. o Never use another person?s prescription opioids. ? Store prescription opioids in a secure place and out of reach of others (this may include visitors, children, friends, and family). ? Safely dispose of unused prescription opioids: Find your community drug take-back program or your pharmacy mail-back program, or flush them down the toilet, following guidance from the Food and Drug Administration (www.fda.gov/Drugs/ResourcesForYou). ? Visit www.cdc.gov/drugoverdose to learn about the risks of opioids abuse and overdose. ? If you believe you may be struggling with addiction, tell your health health care marketing specialist and ask for guidance or call [facility]?S National Helpline at 9-790-232-XXLU. v Source: (more content not included)... Normal [facility] Prescriptions/Work Noteson 0 07-27-2022 Prescriptions/Work Notes [id number]:127 Normal [facility] XR Ankle 3+ Views Righton XR Ankle 3+ Views Right Exam Date/Time: 07/27/2022 10:44 EST Reason for Exam: Leg pain Report IMPRESSION: NO EVIDENCE OF A FRACTURE OR OTHER BONE ABNORMALITY IN THE RIGHT ANKLE. CLINICAL HISTORY: Leg pain COMPARISON: None available. FINDINGS: AP, lateral and oblique views of the right ankle demonstrates no fracture, dislocation or other bone abnormality. FINAL REPORT Dictated: 07/27/2022 10:59 am Amol Venegas MD, V. Signed (Electronic Signature): 07/27/2022 10:59 am Signed by: mAol Venegas MD, V. Transcribed by: ESTEVAN Technologist: [facility] Coding Summary.on 04-18-2022 Coding Summary. [id number] [file] Y29s (more content not included)... Normal [facility] Coding Summary. [id number] [file] Y29s (more content not included)... Normal [facility] ED Note-Physicianon 04-16-20 ED Note-Physician Basic Information Time Seen: Robinson Galvan PA-C 04/14/2022 14:53 Chief Complaint pt c/o allergic reaction to possibly motrin. pt was having swelling and redness in the face and tongue. ppt c/o sob. 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 History of Present Illness 31-year-old female comes to the ED for evaluation of allergic reaction. Just prior to arrival the patient states she took some Motrin and shortly afterwards developed a diffuse urticarial rash with pruritus. She developed chest tightness and difficulty breathing, and ultimately gave herself an epinephrine autoinjector approximate 10 minutes prior to arrival. She took Benadryl as well. She has the epinephrine due to allergic reaction of unclear etiology a few months ago. Upon arrival to the ED she continues to complain of diffuse pruritus and rash but her breathing is improving. No nausea or vomiting. Review of Systems A 10 point review of systems is negative except as noted above. Medical and Surgical History: Reviewed and noted Social history: Lives at home Tobacco: Denies Physical Exam Vitals & Measurements T: 36.7 ?C(Oral) HR: 87(Monitored) RR: 20 BP: 100/64 SpO2: 95% HT: 160 cm WT: 83 kg BMI: 32.42 Nurses notes and vital signs reviewed and patient is not hypoxic. General: Appears uncomfortable and anxious Skin: Diffuse urticarial rash, blanches with pressure Head: Atraumatic. Neck: No JVD. Eye: Normal conjunctiva. Ears, Nose, Mouth, and Throat: Moist mucous membranes. No angioedema Cardiovascular: Strong distal pulses. Tachycardic Chest wall: Respiratory: Respirations are mildly labored, no rhonchi or wheezing Back: Normal range of motion. Musculoskeletal: Normal ROM with no gross deformity. Gastrointestinal: Urological: Neurological: Awake and alert. No focal deficits. Follows commands. Psychiatric: Cooperative. Medical Decision Making Patient presents with allergic reaction. Took epinephrine and Benadryl prior to arrival. She is treated here with IV fluids and steroids. Initially she was feeling improved but after about 90 minutes she developed worsening rash and worsening shortness of breath and subsequently was given additional dose of epinephrine as well as IV Benadryl. With serial examination she is doing much better. Her rash has completely resolved. She has no chest tightness or shortness of breath. No nausea or vomiting. We will observe her here for another hour, and if she remains clinically stable she will be discharged home with PCP follow-up. This is discussed with the oncoming physician for follow-up and final disposition. Critical Care Time: 40 minutes, critical care time is separate from any procedures that are performed. The following was considered in the determination of critical care but not limited to the level medical decision-making, intensive cardiac and/or respiratory monitor, frequent vital sign monitoring, evaluation of laboratory studies, evaluation of a radiographic studies, oxygen monitoring and constant monitoring. Assessment/Plan 1. Anaphylaxis (T78.2XXA: Anaphylactic shock, unspecified, initial encounter) Orders: diphenhydrAMINE, 25 mg = 0.5 mL, Injection, IV Push, Once, Stop date 04/14/22 16:00:00 EDT, STAT, Start date 04/14/22 16:00:00 EDT, 04/14/22 16:00:00 EDT epinephrine, 0.3 mg = 0.3 mL, Injection, IntraMuscular, Once, Stop date 04/14/22 16:00:00 EDT, STAT, Start date 04/14/22 16:00:00 EDT, 04/14/22 16:00:00 EDT famotidine, 20 mg = 2 mL, Soln-IV, IV Push, Once, Stop date 04/14/22 14:54:00 EDT, STAT, Start date 04/14/22 14:54:00 EDT, 04/14/22 14:54:00 EDT methylPREDNISolone, 125 mg = 2 mL, Injection, IV Push, Once, Stop date 04/14/22 14:53:00 EDT, STAT, Start date 04/14/22 14:53:00 EDT, 04/14/22 14:53:00 EDT Sodium Chloride 0.9% intravenous solution 1,000 mL, 1,000 mL, IV, Bolus, STAT, Start date 04/14/22 14:53:00 EDT, Total volume (mL): 1,000 ECG 12 Lead Adult ED Cardiac Monitoring Medications Administered Given Sodium Chloride 0.9% IV Maru 1000 mL 1,000 mL, 1000 mL, IV diphenhydrAMINE 50 mg/mL Inj, 25 mg, IV Push Epinephrine Anaphylaxis Kit, 0.3 mg, IntraMuscular famotidine 10 mg/mL IV Maru, 20 mg, IV Push methylPREDNISolone 125 mg preservative-free injection (SOLU-MEDROL), 125 mg, IV Push Disposition Plan Patient Discharge Condition Disposition: Discharged home Condition: Improved and stable Counseled: Patient and/or family were counseled to workup, results, treatment plan and follow-up recommendations Discharge Prescription List Prescriptions EpiPen 2-Ze 0.3 mg injectable kit, 0.3 mg= 1 EA, IntraMuscular, As Directed Pepcid 40 mg Tab, 40 mg= 1 tab(s), Oral, Once a day (at bedtime) predniSONE 20 mg Tab, 60 mg= 3 tab(s), Oral, Daily Follow-up With When Contact Information Mark Pitts In 3 days 04/17/2022 EDT [address] [place] [address]- Business (1) Additional Instructions: Patient Education Anaphylactic Reaction, Adult Attestation Patient seen (more content not included)... Normal [facility] Comment on above: Result Comment: Elec tronically Signed By: Robinson Galvan PA-C\.br\Date and Time Signed: 04/14/22 18:33 EDT\.br\Electronically Co-Signed By: Saúl Gaspar MD\.br\Date and Time Co-Signed: 04/15/22 23:22 EDT Consent for Treatmenton Consent for Treatment [id number]:127 Normal [facility] Discharge Instructionson Discharge Instructions [id number]:127 Normal [facility] ED Clinical Summaryon 2021 ED Clinical Summary (Inserted Image. Kim ble to display) [place] [id number] ED Clinical Summary Person Information Name: RJ ELENA [facility] Age: 31 Years : 1990 Sex: Female Language: Indonesian PCP: Mark Pitts DO Marital Status: Single Phone: [phone] MRN: [id number] Visit Id: Visit Reason: Allergic reaction - major; BAD ALLERGIC REACTION Speciality: Acuity: 2 Enc Type: Emergency Med Service: Emergency Arrival: 04/14/2022 14:45:02 Discharge: 04/14/2022 19:42:45 LOS: 000 04:57 Checkin: 04/14/2022 14:45:02 Checkout: 04/14/2022 19:42:45 Dispo Type: Home (Routine DC) EVENTS: Event Name Event Status Request Date/Time Start Date/Time Complete Date/Time Arrive Complete 04/14/2022 14:45:02 04/14/2022 14:45:02 04/14/2022 14:45:02 Document Home Meds Request 04/14/2022 14:45:02 Triage Complete 04/14/2022 14:45:02 04/14/2022 14:56:33 04/14/2022 14:56:33 Dr Exam Complete 04/14/2022 14:53:39 04/14/2022 14:53:39 04/14/2022 14:53:39 Registration Complete 04/14/2022 14:53:39 04/14/2022 15:03:31 04/14/2022 16:21:43 Meds Admin Request 04/14/2022 14:54:13 Bed Assign Complete 04/14/2022 15:03:31 04/14/2022 15:03:31 04/14/2022 15:03:31 RN Exam Complete 04/14/2022 15:03:31 04/14/2022 15:10:38 04/14/2022 15:10:38 EKG Complete 04/14/2022 15:26:30 04/14/2022 15:28:07 Dr Exam Complete 04/14/2022 15:33:18 04/14/2022 15:33:18 04/14/2022 15:33:18 Meds Admin Complete 04/14/2022 16:00:53 04/14/2022 16:09:05 Reg Complete Request 04/14/2022 16:21:43 Reg Bed Request Complete 04/14/2022 16:21:43 04/14/2022 16:21:43 04/14/2022 16:21:43 Discharge Complete 04/14/2022 19:29:23 04/14/2022 19:42:49 04/14/2022 19:42:49 Transfer Complete 04/14/2022 19:42:49 04/14/2022 19:42:49 04/14/2022 19:42:49 ADDRESS: [address] [place] [id number] PHYS DOC NOTES: MEDICAL INFORMATION: Prescriptions Given: New Medications [facility], [address] [place], [place] [id number], [phone] epinephrine (EpiPen 2-Ze 0.3 mg injectable kit) 1 Each Intramuscular As Directed. May substitute for another brand if required by insurance or inventory. Refills: 0. famotidine (Pepcid 40 mg Tab) 1 Tablets By Mouth once a day (at bedtime) for 7 Days. Refills: 0. Medications to Continue Taking That Have Changed [facility], [address], [place] [id number], [phone] START: predniSONE (predniSONE 20 mg Tab) 3 Tablets By Mouth every day for 7 Days. Refills: 0. Other Medications START: predniSONE (predniSONE 20 mg Tab) 2 Tablets By Mouth every day for 5 Days. Refills: 0. Medications to Continue with No Changes Other Medications multivitamin (Multi Vitamins oral tablet) 1 Tablets By Mouth every day. naproxen (Naprosyn 500 mg Tab) 1 Tablets By Mouth 2 times a day as needed for pain. Refills: 0. naproxen (naproxen 500 mg Tab) 1 Tablets By Mouth 2 times a day. with food. Refills: 0. ondansetron (Zofran ODT 4 mg Tab-Dis) 1 Tablets By Mouth 3 times a day. Refills: 0. ondansetron (Zofran ODT 4 mg Tab-Dis) 1 Tablets By Mouth every 6 hours. Refills: 0. promethazine (promethazine 25 mg Tab) 1 Tablets By Mouth every 4 hours. Refills: 0. PATIENT EDUCATION INFORMATION: Instructions: Anaphylactic Reaction, Adult Follow up: With: Address: When: [place] [address] Business (1) In 3 days 04/17/2022 DIAGNOSIS: 1:Anaphylaxis Normal [facility] ED Patient Education Noteon 04-14-2022 ED Patient Education Note Immunology Anaphylactic Reaction, Adult An anaphylactic reaction (anaphylaxis) is a sudden, severe allergic reaction by the body's disease-fighting system (immune system). Anaphylaxis can be life-threatening. This condition must be treated right away. Sometimes a person may need to be treated in the hospital. What are the causes? This condition is caused by exposure to a substance that you are allergic to (allergen). In response to this exposure, the body releases proteins (antibodies) and other compounds, such as histamine, into the bloodstream. This causes swelling in certain tissues and loss of blood pressure to important areas, such as the heart and lungs. Common allergens that can cause anaphylaxis include: ? Foods, especially peanuts, wheat, shellfish, milk, and eggs. ? Medicines. ? Insect bites or stings. ? Blood or parts of blood received for treatment (transfusions). ? Chemicals, such as dyes, latex, and contrast material that is used for medical tests. What increases the risk? This condition is more likely to occur in people who: ? Have allergies. ? Have had anaphylaxis before. ? Have a family history of anaphylaxis. ? Have certain medical conditions, including asthma and eczema. What are the signs or symptoms? Symptoms of anaphylaxis may include: ? Feeling knitting machine operator the face (flushed). This may include redness. ? Itchy, red, swollen areas of skin (hives). ? Swelling of the eyes, lips, face, mouth, tongue, or throat. ? Difficulty breathing, speaking, or swallowing. ? Noisy breathing (wheezing). ? Dizziness or light-headedness. ? Fainting. ? Pain or cramping in the abdomen. ? Vomiting. ? Diarrhea. How is this diagnosed? This condition is diagnosed based on: ? Your symptoms. ? A physical exam. ? Blood tests. ? Recent history of exposure to allergens. How is this treated? If you think you are having an anaphylactic reaction, you should do the following right away: ? Give yourself an epinephrine injection using what is commonly called an auto-injector pen (pre-filled automatic epinephrine injection device). Your health care provider will teach you how to use an auto-injector pen. ? Call for emergency help. If you use a pen, you must still get emergency medical treatment in the hospital. Treatment in the hospital may include: ? Medicines to help: ? Tighten your blood vessels (epinephrine). ? Relieve itching and hives (antihistamines). ? Reduce swelling (corticosteroids). ? Oxygen therapy to help you breathe. ? IV fluids to keep you hydrated. Follow these instructions at home: Safety ? Always keep an auto-injector pen near you. This can be lifesaving if you have a severe anaphylactic reaction. Use your auto-injector pen as told by your health care provider. ? Do not drive after an anaphylactic reaction until your health care provider approves. ? Make sure that you, the members of your household, and your employer know: ? What you are allergic to, so it can be avoided. ? How to use an auto-injector pen to give you an epinephrine injection. ? Replace your epinephrine immediately after you use your auto-injector pen. This is important if you have another reaction. ? If told by your health care provider, wear a medical alert bracelet or necklace that states your allergy. ? Learn the signs of anaphylaxis so that you can recognize and treat it right away. ? Work with your health care providers to make an anaphylaxis plan. Preparation is important. General instructions ? If you have hives or rash: ? Use an lqtx-vnn-yhebvbk antihistamine as told by your health care provider. ? Apply cold, wet cloths (cold compresses) to your skin or take baths or showers in cool water. Avoid hot water. ? Take mjny-yed-gkylvqx and prescription medicines only as told by your health care provider. ? Tell all your health care providers that you have an allergy. ? Keep all follow-up visits as told by your health care provider. This is important. How is this prevented? ? Avoid allergens that have caused an anaphylactic reaction in the past. ? When you are at a restaurant, tell your client server programmer that you have an allergy. If you are not sure whether a menu item contains an ingredient that you are allergic to, ask your client server programmer. Where to find more information ? [employer]: aaaai.org ? [employer]: healthychildren.org Get help right away if: ? You develop symptoms of an allergic reaction. You may notice them soon after you are exposed to a substance. Symptoms may include: ? Flushed skin. ? Hives. ? Swelling of the eyes, lips, face, mouth, tongue, or throat. ? Difficulty breathing, speaking, or swallowing. ? Wheezing. ? Dizziness or light-headedness. ? Fainting. ? Pain or cramping in the abdomen. ? Vomiting. ? Diarrhea. ? You used epinephrine. You need more medical care even if the medicine s (more content not included)... Normal [facility] ED Patient Summaryon 022 ED Patient Summary [place] [id number] Patient Discharge Instructions Person Information Name: RJ ELENA Age: 31 Years Arrival Date: 04/14/2022 14:45:02 Discharge Diagnosis: 1:Anaphylaxis Primary Care Physician: Mark Pitts DO Provider Information Primary Provider: Saúl Gaspar MD Advanced Blower Feeder Dyed Raw Stock:Robinson Galvan PA-C The exam and treatment you received in the Emergency Department were for an urgent problem and are not intended as complete care. It is important that you follow up with a doctor, nurse practitioner, or physician?s administrative assistant data entry for ongoing care. If your symptoms become worse or you do not improve as expected and you are unable to reach your usual health care provider, you should return to the Emergency Department. We are available 24 hours a day. RJ ELENA has been given the following list of patient education materials, prescriptions and follow-up instructions: Follow-up Instructions: With: Address: When: [place] [phone] Business (1) In 3 days 04/17/2022 In the event that this physician does not participate in your insurance network, please consult with your insurance company to find a nearby participating provider. Patient Education Materials: Anaphylactic Reaction, Adult A MESSAGE TO ALL PATIENTS REGARDING OPIOIDS PRESCRIPTION OPIOIDS: WHAT YOU NEED TO KNOW Prescription opioids can be used to help relieve atsusikp-xr-gxuyhh pain and are often prescribed following a surgery or injury, or for certain health conditions. These medications can be an important part of the treatment but also come with serious risks. It is important to work with your healthcare provider to make sure you are getting the safest, most effective care. WHAT ARE THE RISKS AND SIDE EFFECTS OF OPIOID USE? Prescription opioids carry serious risks of addiction and overdose, especially with prolonged use. An opioid overdose, often marked by slowed breathing, can cause sudden . The use of prescription opioids can have a number of side effects as well, even when taken as directed: ? Tolerance?meaning you might need to take more of the medication for the same pain relief ? Physical dependence?meaning you have symptoms of withdrawal when a medication is stopped ? Increased sensitivity to pain ? Constipation ? Nausea, vomiting, and dry mouth ? Sleepiness and dizziness ? Confusion ? Depression ? Low levels of testosterone that can result in lower sex drive, energy, and strength ? Itching and sweating RISKS ARE GREATER WITH: ? History of drug misuse, substance use disorder, or overdose ? Mental health conditions (such as depression or anxiety) ? Sleep apnea ? Older age (65 years and older) ? Avoid alcohol while taking prescription opioids. Also, unless specifically advised by your health care provider, medications to avoid include: ? Benzodiazepines (such as Xanax or Valium) ? Muscle relaxants (such as Soma or Flexeril) ? Hypnotics (such as Ambien or Lunesta) ? Other prescription opioids KNOW YOUR OPTIONS Talk to your health care provider about ways to manage your pain that don?t involve prescription opioids. Some of these options may actually work better and have fewer risks and side effects. Options may include: ? Pain relievers such as acetaminophen, ibuprofen, and naproxen ? Some medication that are also used for depression or seizures ? Physical therapy and exercise ? Cognitive behavioral therapy, a psychological, goal-directed approach, in which patients learn how to modify physical, behavioral, and emotional triggers of pain and stress. IF YOU ARE PRESCRIBED OPIOIDS FOR PAIN: ? Never take opioids in greater amounts or more often than prescribed. ? Follow up with your primary health care provider. o Work together to create a plan on how to manage your pain. o Talk about ways to help manage your pain that don?t involve prescription opioids. o Talk about any and all concerns and side effects. ? Help prevent misuse and abuse o Never sell or share prescription opioids. o Never use another person?s prescription opioids. ? Store prescription opioids in a secure place and out of reach of others (this may include visitors, children, friends, and family). ? Safely dispose of unused prescription opioids: Find your community drug take-back program or your pharmacy mail-back program, or flush them down the toilet, following guidance from the Food and Drug Administration (www.fda.gov/Drugs/ResourcesForYou). ? Visit www.cdc.gov/drugoverdose to learn about the risks of opioids abuse and overdose. ? If you believe you may be struggling with addiction, tell your health health care marketing specialist and ask for guidance or call SAMHSA?S National Helpline at 7-935-476-HELP. v Source (more content not included)... Normal [facility] Covid-19 PCR (CVDTBH)on SARS-CoV-2 (COVID-19) RNA YARELY+probe Ql (Unsp spec) Detected Critically abnormal NOT DETECTED [facility] Comment on above: Result Comment: This test is not yet approved or cleared by the [place] FDA. When there are no FDA-approved or cleared tests available, and other criteria are met, FDA can make tests available under an emergency access mechanism called an Emergency Use Authorization (EUA). The EUA for this test is supported by the [place] of Health and Human Service's (HHS's) declaration that circumstances exist to justify the emergency use of in vitro diagnostics for the detection and/or diagnosis of the virus that causes COVID-19. This EUA will remain in effect (meaning this test can be used) for the duration of the COVID-19 declaration justifying emergency of IVDs, unless it is terminated or revoked by FDA (after which the test may no longer be used). Performed By: #### C VDTB #### [facility] [address] [place] [address] Dr. Tj Wild CBC AUTO DIFFon 07-05-2021 BASO # 0.0 103/ul Normal 0.0-0.1 [facility] Comment on above: Performed By: #### C BC #### [facility] [address] [place] [address] Dr. Tj Wild Basophils/100 WBC (Bld) 0.1 % Critically low 0.2-2.0 [facility] Comment on above: Performed By: #### C BC #### [facility] [address] [place] [address] Dr. Tj Wild EO # 0.0 103/ul Normal 0.0-0.7 [facility] Comment on above: Performed By: #### C BC #### [facility] [address] [place] [address] Dr. Tj Wild Eosinophils/100 WBC (Bld) 0.0 % Critically low 0.9-7. 0 [facility] Comment on above: Performed By: #### C BC #### [facility] [address] [place] [address] Dr. Tj Wild Erythrocyte distribution wid th (RBC) [Ratio] 17.2 % Critically high 11.0-15.0 [facility] Comment on above: Performed By: #### C BC #### [facility] [address] [place] [address] Dr. Tj Wild Hematocrit (Bld) [Volume fraction] 36.3 % Normal 3 6.0-48.0 [facility] Comment on above: Performed By: #### C BC #### [facility] [address] [place] [address] Dr. Tj Wild Hemoglobin (Bld) [Mass/Vol] 12.3 g/dL Normal 12.0-16. 0 [facility] Comment on above: Performed By: #### C BC #### [facility] [address] [place] [address] Dr. Tj Wild IG # 0.08 10e3/ul Critically high 0.00-0.03 [facility] Comment on above: Performed By: #### C BC #### [facility] [address] [place] [address] Dr. Tj Wild IG % 0.5 % Normal 0.0-0.5 [facility] Comment on above: Performed By: #### C BC #### [facility] [address] [place] [address] Dr. Tj Wild LYMPH # 2.2 103/ul Normal 1.2-3.8 [facility] Comment on above: Performed By: #### C BC #### [facility] [address] [place] [address] Dr. Tj Wild Lymphocytes/100 WBC (Bld) 13.8 % Critically low 20.5-6 0.0 [facility] Comment on above: Performed By: #### C BC #### [facility] [address] [place] [address] Dr. Tj Wild MANUAL DIFF REQ NO Normal [facility] Comment on above: Performed By: #### C BC #### [facility] [address] [place] [address] Dr. Tj Wild MCH (RBC) [Entitic mass] 26.6 pg Critically low 26.7-34 .0 [facility] Comment on above: Performed By: #### C BC #### [facility] [address] [place] [address] Dr. Tj Wild MCHC (RBC) [Mass/Vol] 33.9 g/dL Normal 29.9-35.2 [facility] Comment on above: Performed By: #### C BC #### [facility] [address] [place] [address] Dr. Tj Wild MCV (RBC) [Entitic vol] 78.4 fL Critically low 81.0-99. 0 [facility] Comment on above: Performed By: #### C BC #### [facility] [address] [place] [address] Dr. Tj Wild MONO # 0.7 103/ul Normal 0.3-0.[address] [facility] Comment on above: Performed By: #### C BC #### [facility] [address] [place] [address] Dr. Tj Wild Monocytes/100 WBC (Bld) 4.6 % Normal 1.7-12.0 [facility] Comment on above: Performed By: #### C BC #### [facility] [address] [place] [address] Dr. Tj Wild NEUT # 12.9 103/ul Critically high 1.4-6.5 [facility] Comment on above: Performed By: #### C BC #### [facility] [address] [place] [address] Dr. Tj Wild Neutrophils/100 WBC (Bld) 81.0 % Critically high 43.0- 75.0 [facility] Comment on above: Performed By: #### C BC #### [facility] [address] [place] [address] Dr. Tj Wild Platelet mean volume (Bld) [ Entitic vol] 10.3 fL Normal 9.5-13.5 [facility] Comment on above: Performed By: #### C BC #### [facility] [address] [place] [address] Dr. Tj Wild PLT 254 103/ul Normal 150-450 [facility] Comment on above: Performed By: #### C BC #### [facility] [address] [place] [address] Dr. Tj Wild RBC 4.63 106/ul Normal 4.20-5.40 [facility] Comment on above: Performed By: #### C BC #### [facility] [address] [address] [address] Tj Wild WBC 16.0 103/ul Critically high 4.0-11.0 [facility] Comment on above: Performed By: #### C BC #### [facility] [address] [place] [address] Dr. Tj Wild Covid-19 PCR ([facility])on 06-10 SARS-CoV-2 (COVID-19) RNA YARELY+probe Ql (Unsp spec) Not detected Normal NOT DETECTED [facility] Comment on above: Result Comment: When diagnostic testing is negative, the possibility of a false negative should be considered in the context of a patient's recent exposures and the presence of clinical signs and symptoms consistent with SARS-CoV-2. This test is not yet approved or cleared by the [place] FDA. When there are no FDA-approved or cleared tests available, and other criteria are met, FDA can make tests available under an emergency access mechanism called an Emergency Use Authorization (EUA). The EUA for this test is supported by the [employer] [place] of Health and Human Service's declaration that circumstances exist to justify the emergency use of in vitro diagnostics for the detection and/or diagnosis of the virus that causes COVID-19. This EUA will remain in effect for the duration of the COVID-19 declaration justifying emergency of IVDs, unless it is terminated or revoked by the FDA (after which the test may no longer be used). Performed By: #### C VDTBH #### [facility] [address] [place] [address] Dr. Tj Wild D-DIMERon 07-05-2021 D-DIMER 6.07 mg/L FEU Critically high 0.19-0.50 [facility] Comment on above: Performed By: #### D DIM #### [facility] [address] [place] [address] Dr. Tj Wild D-DIMER COMMENTS SEE BELOW Normal [facility] Comment on above: Result Comment: Incr eases in D-Dimer concentration observed with thromboembolic events can be variable due to localization, size, and age of the thrombus. Therefore, a thromboembolic event cannot be diagnosed with certainty on the basis of the reference range. D-Dimers may also be elevated for a variety of disorders including: advanced age, , coronary disease, cancer, liver disease, infection, inflammation, hematoma, DIC, trauma, post-surgery, diabetes, thrombolytic or anticoagulant therapy, stress, and generalized hospitalization. Performed By: #### D DIM #### [facility] [address] [place] [address] Dr. Tj Wild PREG HCG QUALon 07-05-2021 , QUAL Negative Normal NEGATIVE [facility] Comment on above: Performed By: #### P REG #### [facility] [address] [place] [address] Dr. Tj Wild PROF 14(COMP METB)on 021 Albumin [Mass/Vol] 3.5 g/dL Normal 3.5-5.0 [facility] Comment on above: Performed By: #### H VALENTINE, CMP #### [facility] [address] [place] [address] Dr. Tj Wild Albumin/Globulin [Mass ratio] 1.1 {ratio} Normal [facility] Comment on above: Performed By: #### H VALENTINE, CMP #### [facility] [address] [place] [address] Dr. Tj Wild ALP [Catalytic activity/Vol] 56 U/L Normal 38-126 [facility] Comment on above: Performed By: #### H VALENTINE, CMP #### [facility] [address] [place] [address] Dr. Tj Wild ALT [Catalytic activity/Vol] 21 U/L Normal 9-52 [facility] Comment on above: Performed By: #### H VALENTINE, CMP #### [facility] [address] [place] [address] Dr. Tj Wild Anion gap [Moles/Vol] 14.4 mmol/L Normal [facility] Comment on above: Performed By: #### H VALENTINE, CMP #### [facility] [address] [place] [address] Dr. Tj Wild AST [Catalytic activity/Vol] 27 U/L Normal 14-36 [facility] Comment on above: Performed By: #### H STROPN, CMP #### [facility] [address] [place] [address] Dr. Tj Wild Bilirubin [Mass/Vol] 0.5 mg/dL Normal 0.2-1.3 [facility] Comment on above: Performed By: #### H STROPN, CMP #### [facility] [address] [place] [address] Dr. Tj Wild Calcium [Mass/Vol] 8.7 mg/dL Normal 8.4-10.2 [facility] Comment on above: Performed By: #### H STROPN, CMP #### [facility] [address] [place] [address] Dr. Tj Wild Chloride [Moles/Vol] 101 mmol/L Normal 98-107 [facility] Comment on above: Performed By: #### H STROPN, CMP #### [facility] [address] [place] [address] Dr. Tj Wild CO2 [Moles/Vol] 26.3 mmol/L Normal 22.0-30.0 [facility] Comment on above: Performed By: #### H STROPN, CMP #### [facility] [address] [place] [address] Dr. Tj Wild Creatinine [Mass/Vol] 0.89 mg/dL Normal 0.52-1.04 [facility] Comment on above: Performed By: #### H STROPN, CMP #### [facility] [address] [place] [address] Dr. Tj Wild EGFR-AF PRYDEINIG >60 Normal >=60 [facility] Comment on above: Performed By: #### H STROPN, CMP #### [facility] [address] [place] [address] Dr. Tj Wild EGFR-NON AF PRYDEINIG >60 Normal >=60 [facility] Comment on above: Performed By: #### H STROPN, CMP #### [facility] [address] [place] [address] Dr. Tj Wild Globulin (S) [Mass/Vol] 3.3 g/dL Normal [facility] Comment on above: Performed By: #### H CESARPN, CMP #### [facility] [address] [place] [address] Dr. Tj Wild Glucose [Mass/Vol] 116 mg/dL Critically high 74-106 [facility] Comment on above: Performed By: #### H CESARPN, CMP #### [facility] [address] [place] [address] Dr. Tj Wild Potassium [Moles/Vol] 3.7 mmol/L Normal 3.4-5.0 [facility] Comment on above: Performed By: #### H CESARPN, CMP #### [facility] [address] [place] [address] Dr. Tj Wild Protein [Mass/Vol] 6.8 g/dL Normal 6.1-8.2 [facility] Comment on above: Performed By: #### H VALENTINE, CMP #### [facility] [address] [place] [address] Dr. Tj Wild Sodium [Moles/Vol] 138 mmol/L Normal 137-145 [facility] Comment on above: Performed By: #### H VALENTINE, CMP #### [facility] [address] [place] [address] Dr. Tj Wild Urea nitrogen [Mass/Vol] 20.0 mg/dL Critically high 7.0-17 .0 [facility] Comment on above: Performed By: #### H CESARPN, CMP #### [facility] [address] [place] [address] Dr. Tj Wild Urea nitrogen/Creatinine [Mass ratio] 22.5 mg/mg Normal [facility] Comment on above: Performed By: #### H CESARPN, CMP #### [facility] [address] [place] [address] Dr. Tj Wild TROPONIN, HIGH SENSITIVITYon 07-05-2021 HSTROP 10.4 pg/mL Normal 4.0-35.5 [facility] Comment on above: Result Comment: CUT- OFF POINTS HAVE BEEN ESTABLISHED BASED ON THE FOURTH UNIVERSAL DEFINITIONS OF MYOCARDIAL INFARCTION. THE UPPER REFERENCE LIMIT (URL) OF TROPONIN, DEFINED THE 99TH PERCENTILE OF cTnI DISTRIBUTION IN A REFERENCE POPULATION, HAS BEEN CONFIRMED THE DECISION THRESHOLD FOR PA DIAGNOSIS. Performed By: #### H VALENTINE, CMP #### [facility] [address] [address] [address] Tj Wild XR CHEST 1 Von 07-05-2021 XR CHEST 1 V ONE-VIEW CHEST RADIO GRAPH, 07/05/2021 7:26 PM EST COMPARISON: Chest, 03/22/2019. CLINICAL HISTORY: SHORTNESS OF BREATH Acute dyspnea and vomiting/shortness of breath and vomiting for 2 days. This started after taking antihistamines. Findings and impression: 1. No acute cardiopulmonary disease. 2. Normal heart size. 3. No acute osseous abnormality. Electronically authenticated by: Cassius MCKEON Date: 2021-07-05 20:35 Normal [facility] Vital Signs Date Time Vital Sign Value Performing Clinician Elsa [email or web address] 02-26-2023 15:56-0400 Body temperature 98.78 [degF] Charlie Khadar [facility] 02-26-2023 15:56-0400 Diastolic blood pressure 76 mm[Hg] Charlie Rubalcava [facility] 02-26-2023 15:56-0400 Heart rate 107 /min Charlie Rubalcava [facility] 02-26-2023 15:56-0400 Respiratory rate 16 /min Charlie Rubalcava [facility] 02-26-2023 15:56-0400 SaO2% (BldA) [Mass fraction] 98 % Charlie Rubalcava [facility] 02-26-2023 15:56-0400 Systolic blood pressure 115 mm[Hg] Charlie Rubalcava [facility] 12-31-2022 10:16-0400 Body temperature 98.24 [degF] Javier Woods [facility] 12-31-2022 10:16-0400 Diastolic blood pressure 82 mm[Hg] Javier Reynae [facility] 12-31-2022 10:16-0400 Heart rate 90 /min Javier Reynae [facility] 12-31-2022 10:16-0400 Respiratory rate 18 /min Javier Reynae [facility] 12-31-2022 10:16-0400 SaO2% (BldA) [Mass fraction] 99 % Javier Reynae [facility] 12-31-2022 10:16-0400 Systolic blood pressure 129 mm[Hg] Javier Reynae [facility] 12-30-2022 13:13-0400 Body temperature 98.06 [degF] Javier Reynae [facility] 12-30-2022 13:13-0400 Diastolic blood pressure 75 mm[Hg] Javier Woods [facility] 12-30-2022 13:13-0400 Heart rate 88 /min Javier Reynae [facility] 12-30-2022 13:13-0400 Respiratory rate 16 /min Javier Woods [facility] 12-30-2022 13:13-0400 SaO2% (BldA) [Mass fraction] 96 % Javier Reynae [facility] 12-30-2022 13:13-0400 Systolic blood pressure 125 mm[Hg] Javier Reynae [facility] 12-21-2022 13:35-0400 Body temperature 98.24 [degF] Charlie Rubalcava [facility] 12-21-2022 13:35-0400 Diastolic blood pressure 77 mm[Hg] Charlie Rubalcava [facility] 12-21-2022 13:35-0400 Heart rate 93 /min Charlie Rubalcava [facility] 12-21-2022 13:35-0400 Respiratory rate 18 /min Charlie Khadar [facility] 12-21-2022 13:35-0400 SaO2% (BldA) [Mass fraction] 99 % Charlie Khadar [facility] 12-21-2022 13:35-0400 Systolic blood pressure 128 mm[Hg] Charlie Khadar [facility] 09-05-2022 22:53-0500 Diastolic blood pressure 63 mm[Hg] Kaylinn Dokken [facility] 09-05-2022 22:53-0500 Heart rate 93 /min Kaylinn Dokken [facility] 09-05-2022 22:53-0500 Mean blood pressure 80 mm[Hg] Kaylinn Dokken [facility] 09-05-2022 22:53-0500 Respiratory rate 20 /min Kaylinn Dokken [facility] 09-05-2022 22:53-0500 SaO2% (BldA) [Mass fraction] 95 % Kaylinn Dokken [facility] 09-05-2022 22:53-0500 Systolic blood pressure 114 mm[Hg] Kaylinn Dokken [facility] 09-05-2022 21:45-0500 Diastolic blood pressure 60 mm[Hg] Kaylinn Dokken [facility] 09-05-2022 21:45-0500 Heart rate 97 /min Kaylinn Dokken [facility] 09-05-2022 21:45-0500 Mean blood pressure 80 mm[Hg] Kaylinn Dokken [facility] 09-05-2022 21:45-0500 Respiratory rate 16 /min Kaylinn Dokken [facility] 09-05-2022 21:45-0500 SaO2% (BldA) [Mass fraction] 93 % Kaylinn Dokken [facility] 09-05-2022 21:45-0500 Systolic blood pressure 119 mm[Hg] Kaylinn Dokken [facility] 09-05-2022 21:03-0500 Body temperature 97.52 [degF] Kaylinn Dokken [facility] 09-05-2022 21:03-0500 Diastolic blood pressure 56 mm[Hg] Kaylinn Dokken [facility] 09-05-2022 21:03-0500 Heart rate 115 /min Kaylinn Dokken [facility] 09-05-2022 21:03-0500 Respiratory rate 32 /min Kaylinn Dokken [facility] 09-05-2022 21:03-0500 SaO2% (BldA) [Mass fraction] 95 % Kaylinn Dokken [facility] 09-05-2022 21:03-0500 Systolic blood pressure 123 mm[Hg] Kaylinn Dokken [facility] 04-14-2022 19:00-0400 Diastolic blood pressure 70 mm[Hg] Saúl Hubert [facility] 04-14-2022 19:00-0400 Heart rate 91 /min Saúl Hubert [facility] 04-14-2022 19:00-0400 Mean blood pressure 83 mm[Hg] Saúl Hubert [facility] 04-14-2022 19:00-0400 Respiratory rate 14 /min Saúl Hubert [facility] 04-14-2022 19:00-0400 SaO2% (BldA) [Mass fraction] 96 % Saúl Hubert [facility] 04-14-2022 19:00-0400 Systolic blood pressure 110 mm[Hg] Saúl Hubert [facility] 04-14-2022 18:22-0400 Diastolic blood pressure 64 mm[Hg] Saúl Hubert [facility] 04-14-2022 18:22-0400 Heart rate 87 /min Saúl Hubert [facility] 04-14-2022 18:22-0400 Mean blood pressure 76 mm[Hg] Saúl Hubert [facility] 04-14-2022 18:22-0400 Respiratory rate 20 /min Saúl Hubert [facility] 04-14-2022 18:22-0400 SaO2% (BldA) [Mass fraction] 95 % Saúl Hubert [facility] 04-14-2022 18:22-0400 Systolic blood pressure 100 mm[Hg] Saúl Hubert [facility] 04-14-2022 17:00-0400 Diastolic blood pressure 61 mm[Hg] Saúl Hubert [facility] 04-14-2022 17:00-0400 Respiratory rate 19 /min Saúl Hubert [facility] 04-14-2022 17:00-0400 SaO2% (BldA) [Mass fraction] 93 % Saúl Gaspar [facility] 04-14-2022 17:00-0400 Systolic blood pressure 105 mm[Hg] Saúl Gaspar [facility] 04-14-2022 15:35-0400 Heart rate 92 /min Saúl Gaspar [facility] 04-14-2022 15:35-0400 Respiratory rate 16 /min Saúl Gaspar [facility] 04-14-2022 14:48-0400 Body temperature 98.06 [degF] Saúl Gaspar [facility] 04-14-2022 14:48-0400 Heart rate 113 /min Saúl Gaspar [facility] 04-14-2022 14:48-0400 Respiratory rate 18 /min Saúl Gaspar [facility] 11-19-2021 19:00-0400 Hourly Rounding Javier Woods [facility] 11-19-2021 19:00-0400 Promise to Return Javier Woods [facility] 11-19-2021 18:45-0400 Diastolic blood pressure 64 mm[Hg] Javier Woods [facility] 11-19-2021 18:45-0400 Heart rate 85 /min Javier Woods [facility] 11-19-2021 18:45-0400 Mean blood pressure 76 mm[Hg] Javier Reynae [facility] 11-19-2021 18:45-0400 Respiratory rate 16 /min Javier Woods [facility] 11-19-2021 18:45-0400 SaO2% (BldA) [Mass fraction] 98 % Javier Peggy [facility] 11-19-2021 18:45-0400 Systolic blood pressure 100 mm[Hg] Javier Peggy [facility] 11-19-2021 18:15-0400 Diastolic blood pressure 70 mm[Hg] Javier Peggy [facility] 11-19-2021 18:15-0400 Heart rate 84 /min Javier Peggy [facility] 11-19-2021 18:15-0400 Mean blood pressure 85 mm[Hg] Javier Peggy [facility] 11-19-2021 18:15-0400 Respiratory rate 16 /min Javier Peggy [facility] 11-19-2021 18:15-0400 SaO2% (BldA) [Mass fraction] 96 % Javier Peggy [facility] 11-19-2021 18:15-0400 Systolic blood pressure 114 mm[Hg] Javier Peggy [facility] 11-19-2021 17:45-0400 Diastolic blood pressure 71 mm[Hg] Javier Peggy [facility] 11-19-2021 17:45-0400 Heart rate 86 /min Javier Peggy [facility] 11-19-2021 17:45-0400 Mean blood pressure 81 mm[Hg] Javier Peggy [facility] 11-19-2021 17:45-0400 Respiratory rate 16 /min Javier Peggy [facility] 11-19-2021 17:45-0400 SaO2% (BldA) [Mass fraction] 97 % Javier Woods [facility] 11-19-2021 17:45-0400 Systolic blood pressure 102 mm[Hg] Javier Woods [facility] 11-19-2021 15:45-0400 Blood Pressure Location Javier Woods [facility] 11-19-2021 15:22-0400 Body temperature 98.24 [degF] Javier Woods [facility] 11-19-2021 15:22-0400 Heart rate 111 /min Javier Woods [facility] Encounters Encounter Date Encounter Type Care Provider Facility Start: 06-15-2023 End: 06-15-2023 ambulatory ANY MO Not Available Start: 02-26-2023 End: 02-26-2023 Emergency department patient visit Charlie Rubalcava Facility[place] Start: 02-26-2023 End: 02-26-2023 Emergency department patient visit Charlie Rubalcava [facility] Start: 01-30-2023 End: 01-31-2023 ambulatory Willa ANDERSON Facility:[facility] Start: 12-31-2022 End: 12-31-2022 Emergency department patient visit Javier Woods Facility:[facility] Start: 12-31-2022 End: 12-31-2022 Emergency department patient visit Javier Woods [facility] Start: 12-30-2022 End: 12-30-2022 Emergency department patient visit Javier Woods Facility:[facility] Start: 12-30-2022 End: 12-30-2022 Emergency department patient visit Javier Woods [facility] Start: 12-26-2022 End: 12-27-2022 ambulatory John MALONEY Facility:[facility] Start: 12-21-2022 End: 12-21-2022 Emergency department patient visit Charlie Rubalcava Facility:[facility] Start: 12-21-2022 End: 12-21-2022 Emergency department patient visit Charlie Rubalcava [facility] Start: 12-15-2022 End: 12-16-2022 ambulatory John MALONEY Facility:[facility] Start: 09-05-2022 End: 09-06-2022 Emergency department patient visit Quita Clark Facility:[facility] Start: 09-05-2022 End: 09-05-2022 Emergency department patient visit Quita Clark [facility] Start: 09-04-2022 End: 09-04-2022 Emergency department patient visit Solo Minayaamparo Facility:[facility] Start: 07-27-2022 End: 07-27-2022 Emergency department patient visit Saúl Gaspar Facility:[facility] Start: 04-14-2022 End: 04-14-2022 Emergency department patient visit Saúl Gaspar [facility] [facility] Start: 04-14-2022 End: 04-14-2022 Emergency department patient visit Saúl Gaspar [facility] Start: 01-13-2022 End: 01-13-[address] HOLLIE RUBI Facility: Start: 11-19-2021 End: 11-19-2021 Emergency department patient visit Javier Woods [facility] Start: 07-05-2021 End: 07-06-2021 ambulatory PHILLIP LORA Facility: Procedures Date Procedure Procedure Detail Performing Clinician None (qualifier value) Javier Woods Payers Date Payer Category Payer Unknown [id number] 2.16.84 [id number] 1990 Unknown [id number] 2.16.84 [id number] 1990 Unknown [id number] 2.16.8 [id number] 1990 Unknown [id number] 2.16.8 [id number] 1990 Unknown [id number] 2.16.8 [id number] 1990 Unknown [id number] 2.16.8 [id number] 1990 Unknown [id number] 2.16.8 [id number] 1990 Unknown [id number] 2.16.8 [id number] 1990 Unknown [id number] 2.16.8 [id number] 1990 Unknown [id number] 2.16.8 [id number] 1990 Unknown [id number] 2.16.8 [id number] 1990 Unknown [id number] 2.16.8 [id number] 1990 Unknown [id number] 2.16.8 [id number] 1990 Unknown [id number] 2.16.840 [id number] 1959 Unknown [id number] Self-pay Social History Date Type Detail Facility Tobacco Cigarettes [facility] Comment on above: 1 ppd Sex Assigned At Female [facility] Start: 04-14-2022 Tobacco smoking status Heavy tobacco smoker (finding) [facility] Functional Status Date Assessment Result Facility 02-26-2023 Functional Status N/A [facility] 12-31-2022 Functional Status N/A [facility] 12-30-2022 Functional Status N/A [facility] 12-21-2022 Functional Status N/A [facility] 09-05-2022 Functional Status N/A [facility] 04-14-2022 Functional Status N/A [facility] Clinical Notes 07-06-2021 to 02-26-2023 Note Date & Type Note Facility 02-26-2023 Hospital Discharg e instructions Patient Education 02/26/2023 17:55:09 Acute Bronchitis, Adult Acute Bronchitis, Adult Acute bronchitis is sudden inflammation of the main airways (bronchi) that come off the windpipe (trachea) in the lungs. The swelling causes the airways to get smaller and make more mucus than normal. This can make it hard to breathe and can cause coughing or noisy breathing (wheezing). Acute bronchitis may last several weeks. The cough may last longer. Allergies, asthma, and exposure to smoke may make the condition worse. What are the causes? This condition can be caused by germs and by substances that irritate the lungs, including: Cold and flu viruses. The most common cause of this condition is the virus that causes the common cold. Bacteria. This is less common. Breathing in substances that irritate the lungs, including: ?Smoke from cigarettes and other forms of tobacco. ?Dust and pollen. ?Fumes from household cleaning products, gases, or burned fuel. ?Indoor or outdoor air pollution. What increases the risk? The following factors may make you more likely to develop this condition: A weak body's defense system, also called the immune system. A condition that affects your lungs and breathing, such as asthma. What are the signs or symptoms? Common symptoms of this condition include: Coughing. This may bring up clear, yellow, or green mucus from your lungs (sputum). Wheezing. Runny or stuffy nose. Having too much mucus in your lungs (chest congestion). Shortness of breath. Aches and pains, including sore throat or chest. How is this diagnosed? This condition is usually diagnosed based on: Your symptoms and medical history. A physical exam. You may also have other tests, including tests to rule out other conditions, such as pneumonia. These tests include: A test of lung function. Test of a mucus sample to look for the presence of bacteria. Tests to check the oxygen level in your blood. Blood tests. Chest X-ray. How is this treated? Most cases of acute bronchitis clear up over time without treatment. Your health care provider may recommend: Drinking more fluids to help thin your mucus so it is easier to cough up. Taking inhaled medicine (inhaler) to improve air flow in and out of your lungs. Using a vaporizer or a humidifier. These are machines that add water to the air to help you breathe better. Taking a medicine that thins mucus and clears congestion (expectorant). Taking a medicine that prevents or stops coughing (cough suppressant). It is notcommon to take an antibiotic medicine for this condition. Follow these instructions at home: Take mpbx-iiq-lpewhax and prescription medicines only as told by your health care provider. Use an inhaler, vaporizer, or humidifier as told by your health care provider. Take two teaspoons (10 mL) of honey at bedtime to lessen coughing at night. Drink enough fluid to keep your urine pale yellow. Do not use any products that contain nicotine or tobacco. These products include cigarettes, chewing tobacco, and vaping devices, such as e-cigarettes. If you need help quitting, ask your health care provider. Get plenty of rest. Return to your normal activities as told by your health care provider. Ask your health care provider what activities are safe for you. Keep all follow-up visits. This is important. How is this prevented? To lower your risk of getting this condition again: Wash your hands often with soap and water for at least 20 seconds. If soap and water are not available, use hand earth science professor. Avoid contact with people who have cold symptoms. Try not to touch your mouth, nose, or eyes with your hands. Avoid breathing in smoke or chemical fumes. Breathing smoke or chemical fumes will make your condition worse. Get the flu shot every year. Contact a health care provider if: Your symptoms do not improve after 2 weeks. You have trouble coughing up the mucus. Your cough keeps you awake at night. You have a fever. Get help right away if you: Cough up blood. Feel pain in your chest. Have severe shortness of breath. Faint or keep feeling like you are going to faint. Have a severe headache. Have a fever or chills that get worse. These symptoms may represent a serious problem that is an emergency. Do not wait to see if the symptoms will go away. Get medical help right away. Call your local emergency services (911 in the [place] Do not drive yourself to the hospital. Summary Acute bronchitis is inflammation of the main airways (bronchi) that come off the windpipe (trachea) in the lungs. The swelling causes the airways to get smaller and make more mucus than normal. Drinking more fluids can help thin your mucus so it is easier to cough up. Take dlga-pyp-jrdsrdw and prescription medicines only as told by your health care provider. Do not use any products that contain nicotine or tobacco. These products include cigarettes, chewing tobacco, and vaping devices, such as e-cigarettes. If you need help quitting, ask your health care provider. Contact a health care provider if your symptoms do not improve after 2 weeks. This information is not intended to replace advice given to you by your health care provider. Make sure you discuss any questions you have with your health care provider. Document Revised: 10/27/2021 Document Reviewed: 10/27/2021 [employer] Patient Education 2022 [employer]. Follow Up Care 02/26/2023 15:53:57 With:[facility] Address: [address] [place] [address] Business (1) When:03/01/2023 17:54:59 Comments:Call the office of your primary care doctor to arrange for follow-up within the above-stated timeframe. Follow-up with your primary care doctor about this ED visit. You should review your labs, imaging, and diagnoses from this ED visit with your primary care physician. If you were prescribed medications you should discuss possible side-effects and drug interactions with your pharmacist. Call 911 or go to the nearest Emergency Department if you develop any new or worsening symptoms. [facility] 02-26-2023 Evaluation + Plan note Extrac kathi from: Title:ED Note Author:Namrata CAO, Juan Ortega e:02/26/23 Bronchitis (J40: Bronchitis, not specified as acute or chronic) Upper respiratory infection (J06.9: Acute upper respiratory infection, unspecified) Orders: albuterol, 2 puff(s), Inhalation, q4hr for 7 day(s), 8.5 gm, [facility](s) [facility], [facility], cm, 02/26/23 15:59:00 EDT, Height/Length Dosing, 85.6, kg, 02/26/23 15:59:00 EDT, Weight Dosing brompheniramine/dextromethorphan/PSE, 5 mL, Oral, QID for cold symptoms, 200 mL, Refill(s) 0, [facility], [facility], cm, 02/26/23 15:59:00 EDT, Height/Length Dosing, 85.6, kg, 02/26/23 15:59:00 EDT, Weight Dosing guaifenesin, 600 mg = 1 tab(s), Oral, q12hr, X 7 day(s), # 14 tab(s), Refills(s) 0, [facility], [facility], cm, 02/26/23 15:59:00 EDT, Height/Length Dosing, 85.6, kg, 02/26/23 15:59:00 EDT, Weight Dosing predniSONE, 60 mg = 3 tab(s), Oral, Daily, X 5 day(s), # 15 tab(s), Refills(s) 0, [facility], [facility], cm, 02/26/23 15:59:00 EDT, Height/Length Dosing, 85.6, kg, 02/26/23 15:59:00 EDT, Weight Dosing Rapid COVID Antigen ([facility] [facility]06-24-2023 Hospital Discharge instructions Patient Education 12/31/2022 10:41:35 Otitis Externa Otitis Externa Otitis externa is an infection of the outer ear canal. The outer ear canal is the area between the outside of the ear and the eardrum. Otitis externa is sometimes called swimmer's ear. What are the causes? Common causes of this condition include: Swimming in dirty water. Moisture in the ear. An injury to the inside of the ear. An object stuck in the ear. A cut or scrape on the outside of the ear or in the ear canal. What increases the risk? You are more likely to develop this condition if you go swimming often. What are the signs or symptoms? The first symptom of this condition is often itching in the ear. Later symptoms of the condition include: Swelling of the ear. Redness in the ear. Ear pain. The pain may get worse when you pull on your ear. Pus coming from the ear. How is this diagnosed? This condition may be diagnosed by examining the ear and testing fluid from the ear for bacteria and funguses. How is this treated? This condition may be treated with: Antibiotic ear drops. These are often given for 10 14 days. Medicines to reduce itching and swelling. Follow these instructions at home: If you were prescribed antibiotic ear drops, use them as told by your health care provider. Do not stop using the antibiotic even if you start to feel better. Take danr-yyq-govsqwi and prescription medicines only as told by your health care provider. Avoid getting water in your ears as told by your health care provider. This may include avoiding swimming or water sports for a few days. Keep all follow-up visits. This is important. How is this prevented? Keep your ears dry. Use the corner of a towel to dry your ears after you swim or bathe. Avoid scratching or putting things in your ear. Doing these things can damage the ear canal or remove the protective wax that lines it, which makes it easier for bacteria and funguses to grow. Avoid swimming in lakes, polluted water, or swimming pools that may not have enough chlorine. Contact a health care provider if: You have a fever. Your ear is still red, swollen, painful, or draining pus after 3 days. Your redness, swelling, or pain gets worse. You have a severe headache. Get help right away if: You have redness, swelling, and pain or tenderness in the area behind your ear. Summary Otitis externa is an infection of the outer ear canal. Common causes include swimming in dirty water, moisture in the ear, or a cut or scrape in the ear. Symptoms include pain, redness, and swelling of the ear canal. If you were prescribed antibiotic ear drops, use them as told by your health care provider. Do not stop using the antibiotic even if you start to feel better. This information is not intended to replace advice given to you by your health care provider. Make sure you discuss any questions you have with your health care provider. Document Revised: 09/08/2021 Document Reviewed: 09/08/2021 [employer] Patient Education 2022 [employer]. Follow Up Care 12/31/2022 10:02:50 With:Mark Pitts Address: [address] [place] [phone] Business (1) When:01/03/2023 10:36:17 Comments:Follow-up with your primary care provider in 3 to 5 days. If symptoms worsen, do not improve, or new symptoms arise please report back to emergency department for further evaluation. [facility]06-23-2023 Hospital Discharge instructions Follow Up Care 12/30/2022 13:07:17 With:Mark Pitts Address: [address] [place] [phone] Business (1) When:Within 3 Day(s) [facility]06-23-2023 Evaluation + Plan noteExtracted from: Title:ED Note Author:Javier Woods DO Date:12/09 09/29 Otitis externa, left (H60.92 : Unspecified otitis externa, left ear) Orders: ciprofloxacin-dexamethasone otic, 5 drop(s), Otic, BID for 7 day(s), 7.5 mL, Refill(s) 0, [facility], 160, cm, 12/30/22 13:14:00 EDT, Height/Length Dosing, 85.6, kg, 12/30/22 13:14:00 EDT, Weight Dosing [facility]06-14-2023 Hospital Discharge instructions Patient Education 12/21/2022 14:54:11 Foot Sprain Foot Sprain A foot sprain is an injury to one of the ligaments in the feet. Ligaments are strong tissues that connect bones to each other. The ligament can be stretched too much. In some cases, it may tear. A tear can be either partial or complete. The severity of the sprain depends on how much of the ligamentwas damaged or torn. What are the causes? This condition is usually caused by suddenly twisting or pivoting your foot. What increases the risk? You are more likely to develop this condition if: You play a sport, such as basketball or football. You exercise or play a sport without first warming up your muscles. You start a new workout or sport. You suddenly increase how long or hard you exercise or play a sport. You have injured your foot or ankle before. What are the signs or symptoms? Symptoms of this condition start soon after an injury and include: Pain, especially in the arch of your foot. Bruising. Swelling. Being unable to walk or use your foot to support body weight. How is this diagnosed? This condition is diagnosed with a medical history and physical exam. You may also have imaging tests, such as: X-rays to check for broken bones (fractures). An MRI to see if the ligament is torn. How is this treated? Treatment for this condition depends on the severity of the sprain. Mild sprains and major sprains can be treated with: Rest, ice, pressure (compression), and elevation (RICE). Elevation means raising your injured foot. Keeping your foot in a fixed position (immobilization) for a period of time. This is done if your ligament is overstretched or partially torn. Your health care provider will apply a bandage, splint, or walking boot to keep your foot from moving until it heals. Using crutches or a scooter for a few weeks to avoid bearing weight on your foot while it is healing. Physical therapy exercises to improve movement and strength in your foot. Major sprains may also be treated with: Surgery. This is done if your ligament is fully torn and a procedure is needed to reconnect it to the bone. A cast or splint. This will be needed after surgery. A cast or splint will need to stay on your foot while it heals. Follow these instructions at home: If you have a bandage, splint, or boot: Wear it as told by your health care provider. Remove it only as told by your health care provider. Loosen it if your toes tingle, become numb, or turn cold and blue. Keep it clean and dry. If you have a cast: Do not put pressure on any part of the cast until it is fully hardened. This may take several hours. Do not stick anything inside the cast to scratch your skin. Doing that increases your risk for infection. Check the skin around the cast every day. Tell your health care provider about any concerns. You may put lotion on dry skin around the edges of the cast. Do not put lotion on the skin underneath the cast. Keep it clean and dry. Bathing Do not take baths, swim, or use a hot tub until your health care provider approves. Ask your healthcare provider if you may take showers. You may only be allowed to take sponge baths. If the bandage, splint, boot, or cast is not waterproof: ?Do not let it get wet. ?Cover it with a watertight covering when you take a bath or shower. Managing pain, stiffness, and swelling If directed, put ice on the injured area. To do this: ?If you have a removable bandage, splint, or boot, remove it as told by your health care provider. ?Put ice in a plastic bag. ?Place a towel between your skin and the bag, or between your cast and the bag. ?Leave the ice on for 20 minutes, 2 3 times per day. ?Remove the ice if your skin turns bright red. This is very important. If you cannot feel pain, heat, or cold, you have a greater risk of damage to the area. Move your toes often to reduce stiffness and swelling. Elevate the injured area above the level of your heart while you are sitting or lying down. Activity Do not use the injured foot to support your body weight until your health care provider says that you can. Use crutches or a scooter as told by your health care provider. Ask your health care provider what activities are safe for you. Do exercises as told by your healthcare provider. Gradually increase how much and how far you walk until your health care provider says it is safe toreturn to full activity. Driving Ask your health care provider if the medicine prescribed to you requires you to avoid driving or using machinery. Ask your health care provider when it is safe to drive if you have a bandage, splint, boot, or swathi your foot. General instructions Take qedy-nkb-pmrjphg and prescription medicines only as told by your health care provider. When you can walk without pain, wear supportive shoes that have stiff soles. Do not wear flip-flops. Do not walk barefoot. Keep all follow-up visits. This is important. Contact a health care provider if: Medicine does not help your pain. Your bruising or swelling gets worse or does not get better with treatment. Your splint, boot, or cast is damaged. Get help right away if: You develop severe numbness or tingling in your foot. Your foot turns blue, white, or chen, and it feels cold. Summary A foot sprain is an injury to one of the ligaments in the feet. Ligaments are strong tissues that connect bones to each other. You may need a bandage, splint, boot, or cast to support your foot while it heals. Sometimes, surgery may be needed. You may need physical therapy exercises to improve movement and strength in your foot. This information is not intended to replace advice given to you by your health care provider. Make sure you discuss any questions you have with your health care provider. Document Revised: 10/16/2020 Document Reviewed: 10/16/2020 [employer] Patient Education 2022 [employer]. 12/21/2022 14:54:11 Elastic Bandage and RICE Therapy Elastic Bandage and RICE Therapy Elastic bandages come in different shapes and sizes. They generally provide support to your injury and reduce swelling while you are healing, but they can perform different functions. Your health care provider will help you to decide what is best for your protection, recovery, or rehabilitation after an injury. The routine care of many injuries includes rest, ice, compression, and elevation (RICE therapy). RICE therapy is often recommended for injuries to soft tissues, such as muscle strain, sprains, bruises, and overuse injuries. It can also be used for some bone injuries. Using RICE therapy can help to relieve pain and lessen swelling. What are some general tips for using an elastic bandage? Use the bandage as directed by the maker of the bandage that you are using. Do not wrap the bandage too tightly. This may block (cut off) the circulation in the arm or leg in the area below the bandage. ?If part of your body beyond the bandage becomes blue, numb, cold, swollen, or more painful, your bandage is probably too tight. If this occurs, remove your bandage and reapply it more loosely. Remove and reapply an elastic bandage every 3 4 hours or as told by your health care provider. See your health care provider if the bandage seems to be making your problems worse rather than better. How to care for your injury with RICE therapy Rest Rest your injury. This may help with the healing process. Rest usually involves limiting your normal activities and not using the injured part of your body. Generally, you can return to your normal activities when your health care provider says it is okay and you can do them without much discomfort. If you rest the injury too much, it may not heal as well. Some injuries heal better with early movement instead of resting for too long. Talk with your health care provider about how you should limityour activities and whether you should start vxqzd-mz-msqsjr exercises for your injury. Ice Ice your injury to lessen swelling and pain. Do not apply ice directly to your skin. Put ice in a plastic bag. Place a towel between your skin and the bag. Leave the ice on for 20 minutes, 2 3 times a day. Use ice on as many days as told by your health care provider. Compression Put pressure (compression) on your injured area to control swelling, give support, and help with discomfort. Compression may be done with an elastic bandage. Elevation Raise (elevate) your injured area to lessen swelling and pain. If possible, elevate your injured area at or above the level of your heart or the center of your chest. Contact a health care provider if: Your pain and swelling continue. Your symptoms are getting worse rather than improving. Having these problems may mean that you need further evaluation or imaging tests, such as X-rays ernesto MRI. Sometimes, X-rays may not show a small broken bone (fracture) until days after the injury happened. Make a follow-up appointment with your health care provider. Ask your health care provider,or the department that is doing the imaging test, when your results will be ready. Get help right away if: You have sudden severe pain at or below the area of your injury. You have redness or increased swelling around your injury. You have tingling or numbness at or below the area of your injury and it does not improve after youremove the elastic bandage. Summary Elastic bandages provide support to your injury and reduce swelling while you are healing. Your health care provider will help you decide which type of elastic bandage is best for your injury. Do not wrap the bandage too tightly. This may block (cut off) the circulation in the arm or leg in the area below the bandage. Putting pressure (compression) on your injured area with an elastic bandage is part of RICE therapy. RICE therapy includes rest, ice, compression, and elevation. This treatment is recommended for theroutine care of many injuries. This information is not intended to replace advice given to you by your health care provider. Make sure you discuss any questions you have with your health care provider. Document Revised: 08/21/2020 Document Reviewed: 03/16/2018 [employer] Patient Education 2020 [employer] 12/21/2022 14:54:11 Ankle Sprain, Phase II Rehab Ankle Sprain, Phase II Rehab An ankle sprain is an injury to tissue that connects bone to bone (a ligament) in the ankle. Ankle sprains usually cause stiffness, loss of motion, and loss of strength. Ask your health care providerwhich exercises are safe for you. Do exercises exactly as told by your health care provider and adjust them as directed. It is normal to feel mild stretching, pulling, tightness, or discomfort as youdo these exercises. Stop right away if you feel sudden pain or your pain gets worse. Do not begin these exercises until told by your health care provider. Stretching and gnsit-ob-kmukda exercises These exercises warm up your muscles and joints and improve the movement and flexibility of your lower leg and ankle. These exercises also help to relieve pain and stiffness. Standing gastroc stretch This exercise is also called a standing calf (gastroc) stretch. 1.Stand with your hands against a wall. 2.Extend your left / right leg behind you, and bend your front knee slightly. Your heels should be on the floor. 3.Keeping your heels on the floor and your back knee straight, shift your weight toward the wall. You should feel a gentle stretch in the back of your lower leg (calf). 4.Hold this position for seconds. Repeat times. Complete this exercise times a day. Standing soleus stretch This exercise is also called a standing calf (soleus) stretch. 1.Stand with your hands against a wall. 2.Extend your left / right leg behind you, and bend your front knee slightly. Both of your heels should be on the floor. 3.Keeping your heels on the floor, bend your back knee and shift your weight slightly over your back leg. You should feel a gentle stretch deep in your calf. 4.Hold this position for seconds. Repeat times. Complete this exercise times a day. Strengthening exercises These exercises build strength and endurance in your lower leg. Endurance is the ability to use your muscles for a long time, even after they get tired. Heel walking This exercise is sometimes called dorsiflexion. 1.Walk on your heels for seconds or ft. Keep your toes as high as possible. Repeat times. Complete this exercise times a day. Balance exercises These exercises improve your balance and the reaction and control of your ankle to help improve stability. Multi-angle lunge 1.Stand with your feet together. 2.Take a step forward with your left / right leg, and shift your weight onto that leg. Your back heel will come off the floor, and your back toes will stay in place. 3.Push off your front leg to return your front foot to the starting position next to your other foot. 4.Repeat to the side, to the back, and any other directions as told by your health care provider. Repeat times. Complete this exercise times a day. Single leg stand If this exercise is too easy, you can try it with your eyes closed or while standing on a pillow. 1.Without shoes, stand near a railing or in a door frame. Hold on to the railing or door frame as needed. Let loose of the railing or door frame as you are able. 2.Stand on your left / right foot. Keep your big toe down on the floor and try to keep your arch lifted. 3.Hold this position for seconds. Repeat times. Complete this exercise times a day. Ankle inversion and eversion This exercise is also called foot rotation with a balance board. This exercise uses a balance boardto rotate the foot and ankle inward (inversion) and outward (eversion). Ask your health care provider where you can get a balance board or how you can make one. 1.Stand on a non-carpeted surface near a countertop or wall. 2.Step onto the balance board so your feet are hip width apart. 3.Keep your feet in place and keep your upper body and hips steady. 4.Using only your feet and ankles to move the board, do the following exercises as told by your health care provider: Tip the board side to side as far as you can, alternating between tipping to the left and tipping to the right. Tip the board so it silently taps the floor. Do not let the board forcefully hit the floor. From time to time, pause to hold a steady midway position, with neither the right nor the left sides touching the ground. Tip the board side to side so the board does not hit the floor at all. From time to time, pause to hold a steady midway position. Repeat times. Complete this exercise times a day. Ankle plantar flexion and dorsiflexion This exercise is also called foot flexion with a balance board. This exercise uses a balance board to push the foot downward and away from the leg (plantar flexion) or upward and toward the leg (dorsiflexion). Ask your health care provider where you can get a balance board or how you can make one. 1.Stand on a non-carpeted surface near a countertop or wall. 2.Step onto the balance board so your feet are hip width apart. 3.Keep your feet in place and keep your upper body and hips steady. 4.Using only your feet and ankles to move the board, do one or both of the following exercises as told by your health care provider: Tip the board forward and backward so the board silently taps the floor. Do not let the board forcefully hit the floor. From time to time, pause to hold a steady position midway between touching the floor in front and touching the floor in back. Tip the board forward and backward so the board does not hit the floor at all. From time to time, pause to hold a steady position in the middle. Repeat times. Complete this exercise times a day. This information is not intended to replace advice given to you by your health care provider. Make sure you discuss any questions you have with your health care provider. Document Revised: 08/19/2021 Document Reviewed: 08/19/2021 [employer] Patient Education 2022 [employer]. 12/21/2022 14:54:11 Ankle Sprain, Phase I Rehab Ankle Sprain, Phase I Rehab An ankle sprain is an injury to the ligaments of your ankle. Ankle sprains cause stiffness, loss ofmotion, and loss of strength. Ask your health care provider which exercises are safe for you. Do exercises exactly as told by your health care provider and adjust them as directed. It is normal to feel mild stretching, pulling, tightness, or discomfort as you do these exercises. Stop right away if you feel sudden pain or your pain gets worse. Do not begin these exercises until told by your healthcare provider. Stretching and dtzya-mu-ckpuko exercises These exercises warm up your muscles and joints and improve the movement and flexibility of your lower leg and ankle. These exercises also help to relieve pain and stiffness. Gastroc and soleus stretch This exercise is also called a calf stretch. It stretches the muscles in the back of the lower leg.These muscles are the gastrocnemius, or gastroc, and the soleus. 1.Sit on the floor with your left / right leg extended. 2.Loop a belt or towel around the ball of your left / right foot. The ball of your foot is on the walking surface, right under your toes. 3.Keep your left / right ankle and foot relaxed and keep your knee straight while you use the belt or towel to pull your foot toward you. You should feel a gentle stretch behind your calf or knee in your gastroc muscle. 4.Hold this position for seconds, then release to the starting position. 5.Repeat the exercise with your knee bent. You can put a pillow or a rolled bath towel under your knee to support it. You should feel a stretch deep in your calf in the soleus muscle or at your Achilles tendon. Repeat times. Complete this exercise times a day. Ankle alphabet 1.Sit with your left / right leg supported at the lower leg. Do not rest your foot on anything. Make sure your foot has room to move freely. 2.Think of your left / right foot as a paintbrush. Move your foot to trace each letter of the alphabet in the air. Keep your hip and knee still while you trace. Make the letters as large as you can without feeling discomfort. 3.Trace every letter from A to Z. Repeat times. Complete this exercise times a day. Strengthening exercises These exercises build strength and endurance in your ankle and lower leg. Endurance is the ability to use your muscles for a long time, even after they get tired. Ankle dorsiflexion 1.Secure a rubber exercise band or tube to an object, such as a table leg, that will stay still when the band is pulled. Secure the other end around your left / right foot. 2.Sit on the floor facing the object, with your left / right leg extended. The band or tube should be slightly tense when your foot is relaxed. 3.Slowly bring your foot toward you, bringing the top of your foot toward your nascimento (dorsiflexion),and pulling the band tighter. 4.Hold this position for seconds. 5.Slowly return your foot to the starting position. Repeat times. Complete this exercise times a day. Ankle plantar flexion 1.Sit on the floor with your left / right leg extended. 2.Loop a rubber exercise tube or band around the ball of your left / right foot. The ball of your foot is on the walking surface, right under your toes. Hold the ends of the band or tube in your hands. The band or tube should be slightly tense when your foot is relaxed. 3.Slowly point your foot and toes downward to tilt the top of your foot away from your nascimento (plantar flexion). 4.Hold this position for seconds. 5.Slowly return your foot to the starting position. Repeat times. Complete this exercise times a day. Ankle eversion 1.Sit on the floor with your legs straight out in front of you. 2.Loop a rubber exercise band or tube around the ball of your left / right foot. The ball of your foot is on the walking surface, right under your toes. Hold the ends of the band in your hands, or secure the band to a stable object. The band or tube should be slightly tense when your foot is relaxed. 3.Slowly push your foot outward, away from your other leg (eversion). 4.Hold this position for seconds. 5.Slowly return your foot to the starting position. Repeat times. Complete this exercise times a day. This information is not intended to replace advice given to you by your health care provider. Make sure you discuss any questions you have with your health care provider. Document Revised: 08/19/2021 Document Reviewed: 08/19/2021 [employer] Patient Education 2022 [employer]. 12/21/2022 14:54:11 Ankle Sprain, Kdsg-mt-Pidb Ankle Sprain An ankle sprain is a stretch or tear in one of the tough tissues (ligaments) that connect the bonesin your ankle. An ankle sprain can happen when the ankle rolls outward (inversion sprain) or inward(eversion sprain). What are the causes? This condition is caused by rolling or twisting the ankle. What increases the risk? You are more likely to develop this condition if you play sports. What are the signs or symptoms? Symptoms of this condition include: Pain in your ankle. Swelling. Bruising. This may happen right after you sprain your ankle or 1 2 days later. Trouble standing or walking. How is this diagnosed? This condition is diagnosed with: A physical exam. During the exam, your doctor will press on certain parts of your foot and ankle and try to move them in certain ways. X-ray imaging. These may be taken to see how bad the sprain is and to check for broken bones. How is this treated? This condition may be treated with: A brace or splint. This is used to keep the ankle from moving until it heals. An elastic bandage. This is used to support the ankle. Crutches. Pain medicine. Surgery. This may be needed if the sprain is very bad. Physical therapy. This may help to improve movement in the ankle. Follow these instructions at home: If you have a brace or a splint: Wear the brace or splint as told by your doctor. Remove it only as told by your doctor. Loosen the brace or splint if your toes: ?Tingle. ?Lose feeling (become numb). ?Turn cold and blue. Keep the brace or splint clean. If the brace or splint is not waterproof: ?Do not let it get wet. ?Cover it with a watertight covering when you take a bath or a shower. If you have an elastic bandage (dressing): Remove it to shower or bathe. Try not to move your ankle much, but wiggle your toes from time to time. This helps to prevent swelling. Adjust the dressing if it feels too tight. Loosen the dressing if your foot: ?Loses feeling. ?Tingles. ?Becomes cold and blue. Managing pain, stiffness, and swelling Take vqmo-can-uzzpldk and prescription medicines only as told by doctor. For 2 3 days, keep your ankle raised (elevated) above the level of your heart. If told, put ice on the injured area: ?If you have a removable brace or splint, remove it as told by your doctor. ?Put ice in a plastic bag. ?Place a towel between your skin and the bag. ?Leave the ice on for 20 minutes, 2 3 times a day. General instructions Rest your ankle. Do not use your injured leg to support your body weight until your doctor says that you can. Use crutches as told by your doctor. Do not use any products that contain nicotine or tobacco, such as cigarettes, e- cigarettes, and chewing tobacco. If you need help quitting, ask your doctor. Keep all follow-up visits as told by your doctor. Contact a doctor if: Your bruises or swelling are quickly getting worse. Your pain does not get better after you take medicine. Get help right away if: You cannot feel your toes or foot. Your foot or toes look blue. You have very bad pain that gets worse. Summary An ankle sprain is a stretch or tear in one of the tough tissues (ligaments) that connect the bonesin your ankle. This condition is caused by rolling or twisting the ankle. Symptoms include pain, swelling, bruising, and trouble walking. To help with pain and swelling, put ice on the injured ankle, raise your ankle above the level of your heart, and use an elastic bandage. Also, rest as told by your doctor. Keep all follow-up visits as told by your doctor. This is important. This information is not intended to replace advice given to you by your health care provider. Make sure you discuss any questions you have with your health care provider. Document Revised: 08/19/2021 Document Reviewed: 08/19/2021 [employer] Patient Education 2022 [employer]. Follow Up Care 12/21/2022 13:24:37 With:Mark Pitts Address: [address] [place] [address] Business (1) When:12/24/2022 14:27:12 Comments:Follow-up with your primary care provider in 3 to 5 days. If symptoms worsen, do not improve, or new symptoms arise please report back to emergency department for further evaluation. [facility]06-14-2023 Evaluation + Plan noteExtracted from: Title:ED Note Author:Loyd Lange PA-C te:12/21/22 Left ankle sprain (S93.402A: Sprain of unspecified ligament of left ankle, initial encounter) Sprain of left foot (S93.602A: Unspecified sprain of left foot, initial encounter) Orders: Crutches XR Ankle 3+ Views Left XR Foot 3+ Views Left [facility]02-28-2023 Hospital Discharge instructions Patient Education 09/05/2022 22:58:39 Hives, Jzvo-tp-Yzao Hives Hives are itchy, red, swollen areas on your skin. Hives can show up on any part of your body. Hivesoften fade within 24 hours (acute hives). New hives can show up after old ones fade. This can go onfor many days or weeks (chronic hives). Hives do not spread from person to person (are not contagious). Hives are caused by your body's response to something that you are allergic to (allergen). These are sometimes called triggers. You can get hives right after being around a trigger, or hours later. What are the causes? Allergies to foods. Insect bites or stings. Pollen. Pets. Latex. Chemicals. Spending time in sunlight, heat, or cold. Exercise. Stress. Some medicines. Viruses. This includes the common cold. Infections caused by germs (bacteria). Allergy shots. Blood transfusions. Sometimes, the cause is not known. What increases the risk? Being a woman. Being allergic to foods such as: ?[place] fruits. ?Milk. ?Eggs. ?Peanuts. ?Tree nuts. ?Shellfish. Being allergic to: ?Medicines. ?Latex. ?Insects. ?Animals. ?Pollen. What are the signs or symptoms? Raised, itchy, red or white bumps or patches on your skin. These areas may: ?Get large and swollen. ?Change in shape and location. ?Stand alone or connect to each other over a large area of skin. ?Sting or hurt. ?Turn white when pressed in the center (martha). In very bad cases, your hands, feet, and face may also get swollen. This may happen if hives start deeper in your skin. How is this treated? Treatment for this condition depends on your symptoms. Treatment may include: Using cool, wet cloths (cool compresses) or taking cool showers to stop the itching. Medicines that help: ?Relieve itching (antihistamines). ?Reduce swelling (corticosteroids). ?Treat infection (antibiotics). A medicine (omalizumab) that is given as a shot (injection). Your doctor may prescribe this if you have hives that do not get better even after other treatments. In very bad cases, you may need a shot of a medicine called epinephrineto prevent a life-threatening allergic reaction (anaphylaxis). Follow these instructions at home: Medicines Take or apply bunr-rov-amqiaaf and prescription medicines only as told by your doctor. If you were prescribed an antibiotic medicine, use it as told by your doctor. Do not stop using it even if you start to feel better. Skin care Apply cool, wet cloths to the hives. Do not scratch your skin. Do not rub your skin. General instructions Do not take hot showers or baths. This can make itching worse. Do not wear tight clothes. Use sunscreen and wear clothes that cover your skin when you are outside. Avoid any triggers that cause your hives. Keep a journal to help track what causes your hives. Write down: ?What medicines you take. ?What you eat and drink. ?What products you use on your skin. Keep all follow-up visits as told by your doctor. This is important. Contact a doctor if: Your symptoms are not better with medicine. Your joints hurt or are swollen. Get help right away if: You have a fever. You have pain in your belly (abdomen). Your tongue or lips are swollen. Your eyelids are swollen. Your chest or throat feels tight. You have trouble breathing or swallowing. These symptoms may be an emergency. Do not wait to see if the symptoms will go away. Get medical help right away. Call your local emergency services (911 in the [place] Do not drive yourself to the hospital. Summary Hives are itchy, red, swollen areas on your skin. Treatment for this condition depends on your symptoms. Avoid things that cause your hives. Keep a journal to help track what causes your hives. Take and apply ccdn-ekb-jvnwvvt and prescription medicines only as told by your doctor. Keep all follow-up visits as told by your doctor. This is important. This information is not intended to replace advice given to you by your health care provider. Make sure you discuss any questions you have with your health care provider. Document Released: 04/04/2009 Document Revised: 01/09/2019 Document Reviewed: 01/09/2019 [employer] Patient Education 2020 [employer]. Follow Up Care 09/05/2022 21:02:01 With:KATJA MCGINNIS Address: [address] [place] [phone]- Business (1) When:09/08/2022 21:23:21 Comments:Follow-up for further evaluation of your urticarial rashes and reactions. With:Mark Pitts Address: [address] [place] [phone]- Business (1) When:Within 3 Day(s) [facility]02-27-2023 Evaluation + Plan noteExtracted from: Title:ED Note Author:Loyd Lange PA-C te:09/05/22 Allergic reaction (T78.40XA: Allergy, unspecified, initial encounter) Urticaria (L50.9: Urticaria, unspecified) Orders: diphenhydrAMINE, 25 mg = 0.5 mL, Injection, IV Push, Once, Stop date 09/05/22 21:11:00 EST, STAT, Start date 09/05/22 21:11:00 EST, 09/05/22 21:11:00 EST epinephrine, 0.3 mg, IntraMuscular, Once, # 1 kit(s), Refills(s) 1, Pharmacy: [facility], 160, cm, 09/05/22 21:08:00 EST, Height/Length Dosing, 85.6, kg, 09/05/22 21:08:00 EST, Weight Dosing famotidine, 20 mg = 2 mL, Soln-IV, IV Push, Once, Stop date 09/05/22 21:10:00 EST, STAT, Start date 09/05/22 21:10:00 EST, 09/05/22 21:10:00 EST methylPREDNISolone, 125 mg = 2 mL, Injection, IV Push, Once, Stop date 09/05/22 21:10:00 EST, STAT, Start date 09/05/22 21:10:00 EST, 09/05/22 21:10:00 EST predniSONE, 60 mg = 3 tab(s), Oral, Daily, X 7 day(s), # 21 tab(s), Refills(s) 0, Pharmacy: [facility], 160, cm, 09/05/22 21:08:00 EST, Height/Length Dosing, 85.6, kg, 09/05/22 21:08:00 EST, Weight Dosing Sodium Chloride 0.9% intravenous solution, 1,000 mL, Soln-IV, IV, Once, Stop date 09/05/22 21:11:00 EST, STAT, Start date 09/05/22 21:11:00 EST, mL/hr, Infuse over 61, minute(s) [facility]10-06-2022 Hospital Discharge instructions Patient Education 04/14/2022 19:42:50 Anaphylactic Reaction, Adult Anaphylactic Reaction, Adult An anaphylactic reaction (anaphylaxis) is a sudden, severe allergic reaction by the body's disease-fighting system (immune system). Anaphylaxis can be life- threatening. This condition must be treatedright away. Sometimes a person may need to be treated in the hospital. What are the causes? This condition is caused by exposure to a substance that you are allergic to (allergen). In response to this exposure, the body releases proteins (antibodies) and other compounds, such as histamine, into the bloodstream. This causes swelling in certain tissues and loss of blood pressure to important areas, such as the heart and lungs. Common allergens that can cause anaphylaxis include: Foods, especially peanuts, wheat, shellfish, milk, and eggs. Medicines. Insect bites or stings. Blood or parts of blood received for treatment (transfusions). Chemicals, such as dyes, latex, and contrast material that is used for medical tests. What increases the risk? This condition is more likely to occur in people who: Have allergies. Have had anaphylaxis before. Have a family history of anaphylaxis. Have certain medical conditions, including asthma and eczema. What are the signs or symptoms? Symptoms of anaphylaxis may include: Feeling knitting machine operator the face (flushed). This may include redness. Itchy, red, swollen areas of skin (hives). Swelling of the eyes, lips, face, mouth, tongue, or throat. Difficulty breathing, speaking, or swallowing. Noisy breathing (wheezing). Dizziness or light-headedness. Fainting. Pain or cramping in the abdomen. Vomiting. Diarrhea. How is this diagnosed? This condition is diagnosed based on: Your symptoms. A physical exam. Blood tests. Recent history of exposure to allergens. How is this treated? If you think you are having an anaphylactic reaction, you should do the following right away: Give yourself an epinephrine injection using what is commonly called an auto- injector pen (pre-filled automatic epinephrine injection device). Your health care provider will teach you how to use anauto-injector pen. Call for emergency help. If you use a pen, you must still get emergency medical treatment in the hospital. Treatment in the hospital may include: ?Medicines to help: ?Tighten your blood vessels (epinephrine). ?Relieve itching and hives (antihistamines). ?Reduce swelling (corticosteroids). ?Oxygen therapy to help you breathe. ?IV fluids to keep you hydrated. Follow these instructions at home: Safety Always keep an auto-injector pen near you. This can be lifesaving if you have a severe anaphylacticreaction. Use your auto-injector pen as told by your health care provider. Do not drive after an anaphylactic reaction until your health care provider approves. Make sure that you, the members of your household, and your employer know: ?What you are allergic to, so it can be avoided. ?How to use an auto-injector pen to give you an epinephrine injection. Replace your epinephrine immediately after you use your auto-injector pen. This is important if youhave another reaction. If told by your health care provider, wear a medical alert bracelet or necklace that states your allergy. Learn the signs of anaphylaxis so that you can recognize and treat it right away. Work with your health care providers to make an anaphylaxis plan. Preparation is important. General instructions If you have hives or rash: ?Use an xqez-goc-jleskcc antihistamine as told by your health care provider. ?Apply cold, wet cloths (cold compresses) to your skin or take baths or showers in cool water. Avoid hot water. Take hcoo-wik-fldawmr and prescription medicines only as told by your health care provider. Tell all your health care providers that you have an allergy. Keep all follow-up visits as told by your health care provider. This is important. How is this prevented? Avoid allergens that have caused an anaphylactic reaction in the past. When you are at a restaurant, tell your client server programmer that you have an allergy. If you are not sure whether a menu item contains an ingredient that you are allergic to, ask your client server programmer. Where to find more information [employer]: aaaai.org [employer]: healthychildren.org Get help right away if: You develop symptoms of an allergic reaction. You may notice them soon after you are exposed to a substance. Symptoms may include: ?Flushed skin. ?Hives. ?Swelling of the eyes, lips, face, mouth, tongue, or throat. ?Difficulty breathing, speaking, or swallowing. ?Wheezing. ?Dizziness or light-headedness. ?Fainting. ?Pain or cramping in the abdomen. ?Vomiting. ?Diarrhea. You used epinephrine. You need more medical care even if the medicine seems to be working. This is important because anaphylaxis may happen again within 72 hours (rebound anaphylaxis). You may need more doses of epinephrine. These symptoms may represent a serious problem that is an emergency. Do not wait to see if the symptoms will go away. Do the following right away: Use the auto-injector pen as you have been instructed. Get medical help. Call your local emergency services (911 in the [place] Do not drive yourself to the hospital. Summary An anaphylactic reaction (anaphylaxis) is a sudden, severe allergic reaction by the body's disease-fighting system (immune system). This condition can be life-threatening. If you have an anaphylactic reaction, get medical help right away. Your health care provider may teach you how to use an auto-injector pen (pre- filled automatic epinephrine injection device) to give yourself a shot. Always keep an auto-injector pen with you. This could save your life. Use it as told by your healthcare provider. If you use epinephrine, you must still get emergency medical treatment, even if the medicine seems to be working. This information is not intended to replace advice given to you by your health care provider. Make sure you discuss any questions you have with your health care provider. Document Released: 06/26/2006 Document Revised: 10/18/2018 Document Reviewed: 10/18/2018 [employer] Patient Education 2020 [employer]. Follow Up Care 04/14/2022 14:45:49 With:[facility] Address: [address] [place] [address] Business (1) When:04/17/2022 18:33:05 [facility]05-13-2022 Hospital Discharge instructions Patient Education 11/19/2021 19:08:27 Food Allergy Food Allergy A food allergy is an abnormal reaction to a food (food allergen) by the body's defense system (immune system). Foods that commonly cause allergies include: Milk. Seafood. Eggs. Peanuts. Tree nuts such as pecans, walnuts, and cashews. Wheat. Soy. What are the causes? Food allergies happen when the immune system sees a food as harmful and releases chemicals (antibodies) to fight it. What are the signs or symptoms? Symptoms may be mild or severe. They usually start minutes after eating the food, but they can occur even a few hours later. In people with a severe allergy, symptoms can start within seconds. Mild symptoms of this condition include: Congested nose. Tingling in the mouth. An itchy, red rash. Vomiting. Diarrhea. In people with a severe allergy, a life-threatening reaction can occur called anaphylaxis. Get helpright away if you have symptoms of anaphylaxis, such as: Feeling knitting machine operator the face (flushed). This may include redness. Itchy, red, swollen areas of skin (hives). Swelling of the eyes, lips, face, mouth, tongue, or throat. Difficulty breathing, speaking, or swallowing. Noisy breathing (wheezing). Dizziness or light-headedness. Fainting. Pain or cramping in the abdomen. How is this diagnosed? This condition may be diagnosed based on: A physical exam. Your medical history. Skin tests. Blood tests. A food challenge test. This test involves eating the food that may be causing the allergic responsewhile being monitored for a reaction by your health care provider. The results of an elimination diet. The elimination diet involves removing foods from your diet andthen adding them back in, one at a time. A food diary. How is this treated? There is no cure for food allergies. Treatment focuses on preventing exposure to the food or foods you are allergic to and treating reactions if you are exposed to the food. Mild symptoms may not need treatment. Severe reactions usually need to be treated at a hospital. Treatment may include: Medicines that help: ?Tighten your blood vessels (epinephrine). ?Relieve itching and hives (antihistamines). ?Widen the narrow and tight airways (bronchodilators). ?Reduce swelling (corticosteroids). Oxygen therapy to help you breathe. IV fluids to keep you hydrated. After a severe reaction, you may be given rescue medicines, such as: An anaphylaxis kit. An epinephrine injection, commonly called an auto-injector pen (pre-filled automatic epinephrine injection device). Your health care provider may teach you how to use these if you are accidentally exposed to an allergen. Follow these instructions at home: If you have a potential allergy: Follow the elimination diet as told by your health care provider. Keep a food diary as told by your health care provider. Every day, write down: ?What you eat and drink and when. ?What symptoms you have and when. If you have a severe allergy: Wear a medical alert bracelet or necklace that describes your allergy. Carry your anaphylaxis kit or an auto-injector pen with you at all times. Use them as told by your health care provider. Make sure that you, your family members, and your employer know: ?The signs of anaphylaxis. ?How to use an anaphylaxis kit. ?How to use an auto-injector pen. If you think that you are having an anaphylactic reaction, use your auto- injector pen or anaphylaxis kit. Replace your auto-injector pen immediately after use, in case you have another reaction. Get medical care after use your auto-injector pen. This is important because you can have a delayed, life-threatening reaction after taking the medicine (rebound anaphylaxis). General instructions Avoid the foods that you are allergic to. Read food labels before you eat packaged items. Look for ingredients that you are allergic to. When you are at a restaurant, tell your client server programmer that you have an allergy. If you are unsure whether a meal has an ingredient that you are allergic to, ask your client server programmer. Take [id number] and prescription medicines only as told by your health care provider. ?Do not drive until the medicine has worn off, unless your health care provider gives you approval. Inform all health care providers that you have a food allergy. If you think that you might be allergic to something else, talk with your health care provider. Do not eat a food to see if you are allergic to it without talking with your health care provider first. Contact a health care provider if you: Have symptoms that do not go away within 2 days. Have symptoms that get worse. Have new symptoms. Get help right away if you have symptoms of anaphylaxis: Flushed skin. Hives. Swelling of the eyes, lips, face, mouth, tongue, or throat. Difficulty breathing, speaking, or swallowing. Wheezing. Dizziness or light-headedness. Fainting. Pain or cramping in the abdomen. These symptoms may represent a serious problem that is an emergency. Do not wait to see if the symptoms will go away. Use your auto-injector pen or anaphylaxis kit as you have been told. Get medical help right away. Call your local emergency services (911 in the [place] Do not drive yourself to the hospital. If you needed to use an auto-injector pen, you need more medical care even if the medicine seems martin helping. This is important because anaphylaxis may happen again within 72 hours. Summary A food allergy is an abnormal reaction to a food (food allergen) by the body's defense system (immune system). There is no cure for food allergies. Treatment focuses on preventing exposure to the food or foods you are allergic to and treating reactions if you are exposed to the food. Wear a medical alert bracelet or necklace that describes your allergy. If you have symptoms of anaphylaxis, use your auto-injector pen or anaphylaxis kit as you have beeninstructed, and get medical help right away. This information is not intended to replace advice given to you by your health care provider. Make sure you discuss any questions you have with your health care provider. Document Released: 06/23/2001 Document Revised: 06/26/2018 Document Reviewed: 06/26/2018 [employer] Patient Education 2019 [employer]. Follow Up Care 11/19/2021 15:20:25 With:Mark Pitts Address: [address] [place] [id number] Business (1) When:11/22/2021 18:25:35 [facility]12-28-2021 NotePROCEDURE: CTA CHEST WO W CON REASON FOR STUDY/CLINICAL HISTORY: Chest pain, evaluate for PE COMPARISON STUDY: None available at time of dictation. There is a CT abdomen and pelvis dated 03/22/2019. No prior chest CT. CT ANGIO CHEST WITH CONTRAST: TECHNIQUE: Volumetric data acquisition of chest was obtained following intravenous administration of 83 mL Omnipaque 350 intravenous contrast without any reported adverse effects. Axial images were reconstructed; sagittal and coronal images were reformatted. MIP (maximum intensity projection) images were performed. Images were reviewed PACS. Dose reduction techniques were achieved by using automated exposure control and/or adjustment of mA and/or kV according to patient size and/or use of iterative reconstruction technique. FINDINGS: Pulmonary Arteries: There are no filling defects within main, lobar, segmental and most proximal portions of the visualized subsegmental branch pulmonary arteries. The vessels distal to this level cannot be well evaluated for subtle pathology or filling defects as there is significant opacification of the pulmonary venous system and there is mixing artifact noted. No definite occlusive appearing filling defect is appreciated within this limitation. There is normal dimensional of main PA. Lungs: Emphysematous changes are noted at the apices with subpleural cystic change on images 8 through 18 of series 6. No pneumothorax or pneumomediastinum is identified and there is no large pleural effusion appreciated. Scattered areas of air-trapping and groundglass opacity can be seen, with slightly more focal groundglass infiltrates on images 27 through 54 of series 5 in the left upper lobe and early consolidative change with infiltrate on image 53 through 56 of series 5 suggested at the left lung base with associated adjacent bronchial thickening. Nodular opacities are noted in several regions including on image 37 of series 5 on the right measuring up to 6 mm. Similar findings on image 37 of series 5 in the lingula and also extending inferiorly. Pleural-based nodule measuring 3 mm on image 21 of series 5 at the left apex. Although these findings can be related to underlying inflammatory change, continued attention on follow-up is recommended as underlying nodules or other pulmonary lesions cannot be entirely excluded. Groundglass nodularity on image 51 of series 5 at the right lung base measures up to 10 mm. Aorta and Vasculature: There is normal caliber of thoracic aorta without evidence of aortic dissection, intramural hematoma or aneurysm. No definite focal thyroid lesion is seen within the limited visualized thyroid gland. Prevascular lymph nodes measure 10 mm on image 27 of series 5 and there are mildly prominent AP window lymph nodes appreciated. Pretracheal lymph nodes measure up to 8 mm in subcarinal lymph nodes are suggested measuring up to 9.8 mm. Mild adenopathy in the hilar regions is also suggested, slightly more pronounced on the right than on the left, and although these findings may be reactive continued attention on follow-up is suggested. Mediastinum: Heart size is normal. There is no pericardial effusion. The esophagus is thickened diffusely, and there is a small hiatal hernia noted. This can be seen on image 60 through 68 of series 5 and correlation for infectious or inflammatory/reflux esophagitis is recommended. Musculoskeletal: No aggressive focal bony lesions, acute fractures or dislocation. Chest wall: Unremarkable. Partially visualized upper abdomen is grossly unremarkable. Top normal spleen size is suggested. The gallbladder is distended. IMPRESSION: No convincing evidence of acute or chronic pulmonary embolism. Extensive multifocal groundglass infiltrates and parenchymal opacities as above, greater on the left than on the right and involving the lung bases greater than the apices. Associated bronchial thickening and mild edema with air trapping is noted. Emphysematous changes are appreciated with subpleural cystic changes as noted above. Continued clinical and radiographic follow-up is recommended as underlying nodules in the areas of inflammatory change cannot be entirely excluded. Lymphadenopathy in the mediastinal and hilar regions is appreciated as noted above, and although this is likely reactive, continued attention on follow-up is suggested. Diffuse esophageal mural thickening and a small hiatal hernia for which correlation for infectious or inflammatory/reflux esophagitis is recommended. Electronically authenticated by: TULIO VILLASEÑOR Date: 2021-07-05 23:35[facility] No data available for this section [facility] No data available for this section [facility] Summary Purpose Family History No Family History Records FoundNo Family History Records FoundNo Family History Records Found Advance Directives No Advanced Directives Records FoundNo Advanced Directives Records FoundNo Advanced Directives Records Found Additional Source Comments INFORMATION SOURCE (unrecogn ized section and content) DATE CREATED AUTHOR 01/17/2022 [facility] DATE CREATED AUTHOR AUTHOR'S ORGANIZ ATION 02/26/2023 [facility] DATE CREATED AUTHOR AUTHOR'S ORGANIZ ATION 06/17/2023 [facility] EPIC Patient Care team informatio n (unrecognized section and content) Personnel Name: Mark Pitts DO Address: Address: [address] [place] [address] Personnel Name: Mark Pitts DO Address: Address: [address] [place] [address] Personnel Name: Mark Pitts DO Address: Address: [address] [place] [address] Personnel Name: Mark Pitts DO Address: Address: [address] [place] [address] Personnel Name: Mark Pitts DO Address: Address: [address] [place] [address] Personnel Name: Mark Pitts DO Address: Address: [address] [place] [address] FOR RECORDS PERTAINING TO PATIENTS WHO ARE OR HAVE BEEN ENROLLED IN A CHEMICAL DEPENDENCY/SUBSTANCEABUSE PROGRAM, SOME INFORMATION MAY BE OMITTED. This clinical summary was aggregated from multiple sources. Caution should be exercised in using it in the provision of clinical care. This summary normalizes information from multiple sources, and as a consequence, information in this document may materially change the coding, format and clinical context of patient data. In addition, data may be omitted in some cases. CLINICAL DECISIONS SHOULD BE BASED ON THE PRIMARY CLINICAL RECORDS. [facility] [employer] [facility]. provides no warranty or guarantee of the accuracy or completeness of information in this document.
== END 2023-06-15 19:56 | disposition home or self-care (01) ==
LOC: LAB 19:55
PROVIDERS: Visit Provider Physician Assistant
DX: Z01.419 Encounter for gynecological examination (general) (routine) without abnormal findings (principal)
CPT/HCPCS: 87624; G0145

== ENCOUNTER 2023-06-20 10:36 | Outpatient (OUT) | payer OTHER, SELFPAY ==
--- NOTE | 2023-06-20 10:37 | US_ITS ---
[address] [address] Patient Name: RJ ELENA MRN: [id number] date: 1990 Sex: F Assigned Patient Location: US Current Patient Location: US Accession/Order Number: [id number] Exam Date: 06/20/2023 10:40 Report Date: 06/20/2023 13:02 At the request of: PALOMO MESA Procedure: US OB anatomy PROCEDURE: US OB anatomy, US OB cervical length HISTORY: ANATOMY COMPARISON: None. TECHNIQUE: Transabdominal sonographic examination was performed for obstetrical and evaluation. FINDINGS: Number: 1 Heart Rate: 146.0 bpm H.B. /min Amniotic Fluid Volume: Subjectively normal position: Breech Placental Location: POSTERIOR , grade 0. This is from the central edge to the cervical os 3.5 cm Cervix Length: 4.5 cm, closed Normal anatomy: Lateral ventricles, cerebellum, posterior fossa, nose, lips, orbits, four-chamber heart, RVOT, LVOT, diaphragm, stomach, kidneys, abdominal cord insertion, bladder, umbilical arteries, three-vessel cord, spine, extremities BIOMETRY: BPD: 4.7 cm 20 weeks 1 days , 55% HC: 17.9 cm 20 weeks 2 days , 58% AC:14.7 cm 20 weeks 0 days , 45% FL: 3.4 cm 20 weeks 4 days , 63% EFW: 343.3 grams 12 ounces, 62% FL/AC: 22.9 FL/BPD: 72.2 HC/AC: 1.2 GESTATIONAL AGE: Age by EDC: 20 weeks 0 days HILARY by EDC: 11/07/2023 Ultrasound Age: 20 weeks 2 days Ultrasound HILARY: 11/05/2023 US/US OB anatomy IMPRESSION: Normal anatomy scan Closed cervix measuring 4.5 cm in length *Reference: [employer] Practice Guideline for the performance of Obstetric Ultrasound Examinations, April 09, 2007. Electronically authenticated by: FELICITAS TINOCO Date: 06/20/2023 13:02
--- NOTE | 2023-06-20 10:37 | US_ITS ---
[address] [address] Patient Name: RJ ELENA MRN: [id number] date: 1990 Sex: F Assigned Patient Location: US Current Patient Location: US Accession/Order Number: [id number] Exam Date: 06/20/2023 10:40 Report Date: 06/20/2023 13:02 At the request of: PALOMO MESA Procedure: US OB cervical length PROCEDURE: US OB anatomy, US OB cervical length HISTORY: ANATOMY COMPARISON: None. TECHNIQUE: Transabdominal sonographic examination was performed for obstetrical and evaluation. FINDINGS: Number: 1 Heart Rate: 146.0 bpm H.B. /min Amniotic Fluid Volume: Subjectively normal position: Breech Placental Location: POSTERIOR , grade 0. This is from the central edge to the cervical os 3.5 cm Cervix Length: 4.5 cm, closed Normal anatomy: Lateral ventricles, cerebellum, posterior fossa, nose, lips, orbits, four-chamber heart, RVOT, LVOT, diaphragm, stomach, kidneys, abdominal cord insertion, bladder, umbilical arteries, three-vessel cord, spine, extremities BIOMETRY: BPD: 4.7 cm 20 weeks 1 days , 55% HC: 17.9 cm 20 weeks 2 days , 58% AC:14.7 cm 20 weeks 0 days , 45% FL: 3.4 cm 20 weeks 4 days , 63% EFW: 343.3 grams 12 ounces, 62% FL/AC: 22.9 FL/BPD: 72.2 HC/AC: 1.2 GESTATIONAL AGE: Age by EDC: 20 weeks 0 days HILARY by EDC: 11/07/2023 Ultrasound Age: 20 weeks 2 days Ultrasound HILRAY: 11/05/2023 US/US OB cervical length IMPRESSION: Normal anatomy scan Closed cervix measuring 4.5 cm in length *Reference: [employer] Practice Guideline for the performance of Obstetric Ultrasound Examinations, April 09, 2007. Electronically authenticated by: FELICITAS TINOCO Date: 06/20/2023 13:02
== END 2023-06-20 10:37 | disposition home or self-care (01) ==
LOC: US 10:36
PROVIDERS: Visit Provider Obstetrics & Gynecology
DX: Z36.89 Encounter for other specified antenatal screening (principal); Z3A.20 20 weeks gestation of pregnancy
CPT/HCPCS: 76805; 76817

== ENCOUNTER 2023-08-22 12:42 | Outpatient (OUT) | payer OTHER, SELFPAY ==
[2023-08-22 12:36] LABS: Basophils Percent Auto 0.2 % (0.2-2.0); Eosinophils Absolute Auto 0.1 10^3/uL (0.0-0.7); Eosinophils Percent Auto 0.7 % (0.9-7.0); Hematocrit 31.4 % (36.0-48.0); Hemoglobin 9.7 g/dL (12.0-16.0); Immature Granulocytes Abs Auto 0.05 10^3/uL (0.00-0.03); Immature Granulocytes Pct Auto 0.4 % (0.0-0.5); Lymphocytes Absolute Auto 2.6 10^3/uL (1.2-3.8); Lymphocytes Percent Auto 19.4 % (20.5-60.0); Mean Corpuscular HGB Conc 30.9 g/dL (29.9-35.2); Mean Corpuscular Hemoglobin 25.3 pg (26.7-34.0); Mean Platelet Volume 10.6 fL (9.5-13.5); Monocytes Absolute Auto 0.3 10^3/uL (0.3-0.8); Monocytes Percent Auto 2.6 % (1.7-12.0); Neutrophils Absolute Auto 10.2 10^3/uL (1.4-6.5); Neutrophils Percent Auto 76.7 % (43.0-75.0); Platelet Count 176 10^3/uL (150-450); Red Blood Count 3.83 10^6/uL (4.20-5.40); White Blood Count 13.3 10^3/uL (4.0-11.0)
--- OUTSIDE RECORDS SUMMARY | 2023-08-22 12:46 | XMS_ITS | CCD ---
Author Name Unknown Address [address] [facility] [address] [place] [id number] Organization [facility] Care Team Providers Care Claims Account Manager Name Role Phone Mark Pitts Primary Care Physician PHILLIP LORA Admitting Unavailable HEBER, DR PRABHU Cervantes Consulting Unavailable PHILLIP LORA Attending Unavailable FLORENCIA, DR ROCK Primary Care Unavailable HARJEET, JOHN PAUL DUMAS Consulting Unavailable KASI, TULIO Consulting Unavailable MIKE, GIROLALETI Consulting Unavailable GREYSON, DR BROWNE Attending Unavailable GREYSON, DR BROWNE Consulting Unavailable FLORENCIA, DR ROCK Primary Care Unavailable GREYSON, DR BROWNE Admitting Unavailable Hubert, Saúl Attending Unavailable Hubert, Saúl Attending Unavailable Charlie Rubalcava Attending Unavailable Peggy, Javier Attending Unavailable Peggy, Javier Attending Unavailable Charlie Rubalcava Attending Unavailable HAIDER, John Attending Unavailable HAIDER, John Attending Unavailable MONICA, Willa Jean Attending Unavailable Willa ANDERSON Admitting Unavailable Amber, Quita Cano Attending Unavailable Lamin, Solo Sheldon Attending Unavailable BRODERICK NICKERSON Attending Unavailable BHUMIKA MO Attending Unavailable Mark Pitts MD Primary Care Provider Allergies Allergy Classification Reported Allergen(s) Allergy Type Date of Onset Reaction(s) Facility (10 sources) Codeine; Translations: [codeine] Drug Allergy 3 [facility] (8 sources) Penicillin; Translations: [penicillin] Drug Allergy [facility] (1 source) Clindamycin Drug Allergy [facility] (1 source) Codeine Drug Allergy 4 [facility] (1 source) Penicillins Drug allergy (disorder) 4 [facility] (9 sources) Ibuprofen; Translations: [ibuprofen] Drug Allergy 3 Anaphylaxis (disorder), [facility] (5 sources) Amoxicillin; Translations: [amoxicillin] Drug Allergy 3 [facility] (2 sources) Penicillins Propensity to adverse reactions 3 [facility] Medications Current Medications Medication Drug Class(es) Dates Sig (Normalized) Sig (Original) Albuterol (Eqv-ProAir HFA) 90 mcg/inh inhalation aerosol (1 source) Start: 02-26-2023 End: 03-05-2023 take 2 puff(s) by inhalation every four hours Albuterol (Eqv-ProAir HFA) 90 mcg/inh inhalation aerosol 2 puff(s), Inhalation, q4hr for 7 day(s), 8.5 gm, Refill(s) 0, [facility], 160, cm, 02/26/23 15:59:00 EDT, Height/Length Dosing, 85.6, kg, 02/26/23 15:59:00 EDT, Weight Dosing Start Date: 02/26/23 Stop Date: 03/05/23 Status: Ordered brompheniramine maleate 0.4 mg/ml / dextromethorphan hydrobromide 2 mg/ml / pseudoephedrine hydrochloride 6 mg/ml oral solution (8 sources) alpha-Adrenergic Agonist, Uncompetitive D-hdquye-E-aspartat e Receptor Antagonist, Sigma-1 Agonist Start: 02-27-2023 take 5 mL by mouth four times daily as needed brompheniramine -pseudoephedrin e-DM 30-2-10 MG/5ML syrup TAKE 5 ML BY MOUTH 4 TIMES DAILY NEEDED FOR COLD SYMPTOMS 0 02/27/2023 Active Start: 09-04-2022 take 5 mL by mouth f our times daily Bromfed DM oral syrup 5 mL, Oral, QID for cold symptoms, 200 mL, Refill(s) 0, [facility], 160, cm, 02/26/23 15:59:00 EDT, Height/Length Dosing, 85.6, kg, 02/26/23 15:59:00 EDT, Weight Dosing Start Date: 02/26/23 Status: Ordered ciprofloxacin 3 mg/ml / dexamethasone 1 mg/ml otic suspension (2 sources) Corticosteroid, Quinolone Antimicrobial Start: 12-30-2022 End: 01-06-2023 Ciprodex 0.3%-0.1% Susp-Otic 5 drop(s), Otic, BID for 7 day(s), 7.5 mL, Refill(s) 0, [facility], 160, cm, 12/30/22 13:14:00 EDT, Height/Length Dosing, 85.6, kg, 12/30/22 13:14:00 EDT, Weight Dosing Start Date: 12/30/22 Stop Date: 01/06/23 Status: Ordered [id number] 0.3 ml EPINEPHrine 1 mg/ml auto-injector (8 sources) alpha-Adrenergic Agonist, beta-Adrenergic Agonist, Catecholamine Start: 09-09-2022 inject 0.3 mg by intramuscular injection once daily EPINEPHrine (Epipen) 0.3 MG/0.3ML injection syringe INJECT 0.3 MG INTRAMUSCULARLY ONCE DAILY 0 09/09/2022 Active Start: 04-14-2022 EpiPen 2-Ze 0 .3 mg injectable kit 0.3 mg = 1 EA, IntraMuscular, As Directed, May substitute for another brand if required by insurance or inventory, # 1 kit(s), Refills(s) 0, Pharmacy: [facility], 160, cm, 04/14/22 14:56:00 [...] day(s), # 7 tab(s), Refills(s) 0, Pharmacy: [facility], 160, cm, 04/14/22 14:56:00 EDT, Height/Length Dosing, 83, kg, 04/14/22 14:56:00 EDT, Weight Dosing Start Date: 04/14/22 Stop Date: 04/21/22 Status: Ordered Start: 11-19-2021 End: 11-26-2021 take 1 tablet by mouth once daily at bedtime Pepcid 40 mg Tab 40 mg = 1 tab(s), Oral, Once a day (at bedtime), X 7 day(s), # 7 tab(s), Refills(s) 0, Pharmacy: [facility], 160, cm, 11/19/21 15:30:00 EDT, Height/Length Dosing, 83, kg, 11/19/21 15:30:00 EDT, Weight Dosing Start Date: 11/19/21 Stop Date: 11/26/21 Status: Ordered fluticasone propionate 0.05 mg/actuat metered dose nasal spray (4 sources) Corticosteroid Start: 12-31-2022 Flonase Allerg y Relief 50 MCG/ACT nasal spray Administer into affected nostril(s) 0 12/31/2022 Active Start: 12-31-2022 take 2 spray(s) nasa l route once daily Flonase 0.05 mg/inh [place] 2 spray(s), Nasal, Daily, 16 gram, Refill(s) 0, each nostril, [facility], 160, cm, 12/31/22 10:20:00 [...] day(s), # 14 tab(s), Refills(s) 0, Pharmacy: [facility], 160, cm, 02/26/23 15:59:00 EDT, Height/Length Dosing, 85.6, kg, 02/26/23 15:59:00 EDT, Weight Dosing Start Date: 02/26/23 Stop Date: 03/05/23 Status: Ordered metoclopramide 10 mg oral tablet (2 sources) Dopamine-2 Receptor Antagonist Start: 07-20-2023 metoclopramide (Reglan) 10 MG tablet Indications: Nausea and vomiting, unspecified vomiting type Take 1 tablet (10 mg) by mouth in the morning and 1 tablet (10 mg) at noon and 1 tablet (10 mg) in the evening. Take before meals. Take 1 tablet by mouth 30 minutes prior to meals 3 times daily as needed for nausea.. 90 tablet 1 07/20/2023 Active metroNIDAZOLE 500 mg oral tablet (2 sources) Nitroimidazole Antimicrobial Start: 08-21-2023 End: 08-28-2023 take 1 tablet by mouth in the morning metroNIDAZOLE (Flagyl) 500 MG tablet Indications: BV (bacterial vaginosis) Take 1 tablet (500 mg) by mouth in the morning and 1 tablet (500 mg) before bedtime. Do all this for 7 days. Do not drink alcohol while taking this medication. 14 tablet 0 08/21/2023 08/28/2023 Active Multi Vitamins oral tablet (7 sources) Start: [...] Refills(s) 0 Start Date: 01/05/21 Status: Ordered ondansetron 4 mg disintegrating oral tablet (4 sources) Serotonin-3 Receptor Antagonist Start: 08-21-2023 End: 11-19-2023 take 1 tablet by mouth every six hours as needed for nausea and vomiting and nausea and nausea ondansetron ODT (Zofran-ODT) 4 MG disintegrating tablet Indications: Nausea Take 1 tablet (4 mg) by mouth every 6 (six) hours if needed for nausea or vomiting 30 tablet 2 08/21/2023 11/19/2023 Active take 1 tablet by savannah th every eight hours as needed for nausea and vomiting ondansetron ODT (Zofran-ODT) 4 MG disintegrating tablet Take 4 mg by mouth every 8 (eight) hours if needed for nausea or vomiting. 0 Active polysaccharide iron complex 391 mg oral capsule (2 sources) Start: 06-15-2023 End: 06-14-2024 take 1 capsule by mouth once in the morning iron polysaccharides (ProFe) 391.3 (180 Fe) MG capsule Indications: Second trimester Take 1 capsule (391.3 mg) by mouth in the morning. 90 capsule 3 06/15/2023 06/14/2024 Active predniSONE 20 mg oral tablet (11 sources) Start: 02-26-2023 End: 03-03-2023 take 3 tablets by mouth once daily predniSONE 20 mg Tab 60 mg = 3 tab(s), Oral, Daily, X 5 day(s), # 15 tab(s), Refills(s) 0, Pharmacy: [facility], 160, cm, 02/26/23 15:59:00 EDT, Height/Length Dosing, 85.6, kg, 02/26/23 15:59:00 EDT, Weight Dosing Start Date: 02/26/23 Stop Date: 03/03/23 Status: Ordered Start: 09-05-2022 End: 09-12-2022 take 3 tablets by mouth once daily predniSONE 20 mg Tab 60 mg = 3 tab(s), Oral, Daily, X 7 day(s), # 21 tab(s), Refills(s) 0, Pharmacy: [facility], 160, cm, 09/05/22 21:08:00 EST, Height/Length Dosing, 85.6, kg, 09/05/22 21:08:00 EST, Weight Dosing Start Date: 09/05/22 Stop Date: 09/12/22 Status: Ordered Start: 04-14-2022 End: 04-21-2022 take 3 tablets by mouth once daily predniSONE 20 mg Tab 60 mg = 3 tab(s), Oral, Daily, X 7 day(s), # 21 tab(s), Refills(s) 0, Pharmacy: [facility], 160, cm, 04/14/22 14:56:00 EDT, Height/Length Dosing, 83, kg, 04/14/22 14:56:00 EDT, Weight Dosing Start Date: 04/14/22 Stop Date: 04/21/22 Status: Ordered Start: 11-19-2021 End: 11-26-2021 take 3 tablets by mouth once daily predniSONE 20 mg Tab 60 mg = 3 tab(s), Oral, Daily, X 7 day(s), # 21 tab(s), Refills(s) 0, Pharmacy: [facility], 160, cm, 11/19/21 15:30:00 EDT, Height/Length Dosing, 83, kg, 11/19/21 15:30:00 EDT, Weight Dosing Start Date: 11/19/21 Stop Date: 11/26/21 Status: Ordered Start: 07-04-2021 End: 07-09-2021 take 2 tablets by mouth once daily predniSONE 20 mg Tab 40 mg = 2 tab(s), Oral, Daily, # 10 tab(s), Refills(s) 0 Start Date: 07/04/21 Stop Date: 07/09/21 Status: Ordered MV-Min-Fe Fum-FA-DHA ( 1 PO) (2 sources) MV-Min- Fe Fum-FA-DHA ( 1 PO) Take 1 each by mouth in the morning. 0 Active promethazine hydrochloride 25 mg oral tablet (7 sources) Phenothiazine Start: 03-21-2019 take 1 tablet by mouth every four hours promethazine 25 mg Tab 25 mg = 1 tab(s), Oral, q4hr, # 14 tab(s), Refills(s) 0, Pharmacy: [facility] 1985 Start Date: 03/21/19 Status: Ordered traMADol hydrochloride 50 mg oral tablet (1 source) Opioid Agonist Start: 12-31-2022 End: 01-03-2023 take 1 tablet by mouth every six hours as needed for pain traMADOL 50 mg Tab 50 mg = 1 tab(s), Oral, q6hr, PRN for pain, X 3 day(s), # 12 tab(s), Refills(s) 0, Pharmacy: [facility], 160, cm, 12/31/22 10:20:00 EDT, Height/Length Dosing, 85.6, kg, 12/31/22 10:20:00 EDT, Weight Dosing Start Date: 12/31/22 Stop Date: 01/03/23 Status: Ordered Zofran ODT 4 mg Tab-Dis (14 sources) Start: 08-05-2019 take 1 tablet by mouth three times daily Zofran ODT 4 mg Tab-Dis 4 mg = 1 tab(s), Oral, TID, # 15 tab(s), Refills(s) 0, Pharmacy: [facility], 160, cm, 08/05/19 9:28:00 EST, Height/Length Measured, 86.5, kg, 08/05/19 9:28:00 EST, Weight Measured Start Date: 08/05/19 Status: Ordered Start: 03-21-2019 take 1 tablet by savannah th every six hours Zofran ODT 4 mg Tab-Dis 4 mg = 1 tab(s), Oral, q6hr, # 10 tab(s), Refills(s) 0, Pharmacy: [facility] 1985 Start Date: 03/21/19 Status: Ordered Problems Active Problems Problem Classification Problem Date Documented Date Episodic/Chronic Allergic reactions (12 sources) Allergic reaction to food; Translations: [Other adverse food reactions, not elsewhere classified, initial encounter] Onset: 11-19-2021 Episodic Chronic obstructive pulmonary disease and bronchiectasis (1 source) Bronchitis; Translations: [Bronchitis, not specified as acute or chronic] Onset: 02-26-2023 Episodic Immunizations and screening for infectious disease (4 sources) Patient encounter status; Translations: [Encounter for screening for infections with a predominantly sexual mode of transmission] Onset: 07-20-2023 07-20-2023 Episodic Inflammatory diseases of female pelvic organs (2 sources) Bacterial vaginosis; Translations: [Acute vaginitis] 08-21-2023 Episodic Nausea and vomiting (5 sources) Nausea with vomiting, unspecified; Translations: [Nausea] Onset: 07-07-2021 08-21-2023 Episodic Other ear and sense organ disorders (1 source) Otitis externa of left ear; Translations: [Unspecified otitis externa, left ear] Onset: 12-30-2022 Chronic Other ear and sense organ disorders (1 source) Otitis externa of bilateral ears; Translations: [Unspecified otitis externa, bilateral] Onset: 12-31-2022 Chronic Other infections; including parasitic (2 sources) Trichomonal vaginitis; Translations: [Trichomonal vulvovaginitis] Onset: 07-20-2023 07-20-2023 Episodic Other and delivery including normal (4 sources) Third trimester ; Translations: [Encounter for supervision of normal , unspecified, third trimester] Onset: 07-20-2023 08-16-2023 Episodic Other upper respiratory infections (2 sources) Acute [...] Classification Problem Date Documented Da te Episodic/Chronic Other aftercare (1 source) Other retirement (current) drug therapy; Translations: [OTH DIRECTOR WEIGHTS AND MEASURES CURRENT DRUG THERAPY] Onset: 07-07-2021 Episodic Other lower respiratory disease (4 sources) Shortness of breath; Translations: [SHORTNESS OF BREATH] Onset: 07-05-2021 Episodic Pneumonia (except that caused by tuberculosis or sexually transmitted disease) (1 source) Pneumonia, unspecified organism; Translations: [PNEUMONIA UNSPECIFIED ORGANISM] Onset: 07-07-2021 Episodic Unclassified (1 source) COUGH, UNSPECIFIED; Translations: [COUGH, UNSPECIFIED] Onset: 01-13-2022 Results Test Name Value Interpretation Reference Range Facility Urinalysis macro (dipstick) panel (U)on 08-21-2023 Bilirubin, UA Negative Negative - 4(70) +++ mg/dL [facility] Blood, UA Negative Negative - 50 Juan Alberto/mcL [facility] Clarity, UA Clear [facility] Color, UA Yellow [facility] Glucose, UA Negative Negative - 1999(110) ++++ mg/dL [facility] Interpretation and review of laboratory results Normal [facility] Ketones, UA Negative Negative - 160(16) ++++ mg/dL [facility] Leukocytes, UA Negative Negative - 500+++ Geovani/mcL [facility] Nitrite, UA Negative Negative - Positive [facility] pH, UA 7.0 5 - 9 [facility] Protein, UA Negative Negative - 2000(20) ++++ mg/dL [facility] Spec Grav, UA 1.015 1 - 1.03 [facility] Urobilinogen, UA 0.2 0.2 - 12 mg/dL [facility] Cytology Cervical or vaginal smear or scraping studyon 06-15-2023 [facility] Consent for Treatmenton 02-08 Consent for Treatment [id number] .00CD:127 Normal [facility] Discharge Instructionson Discharge Instructions [id number]# 1.00CD:127 Normal [facility] ED Clinical Summaryon 2022 ED Clinical Summary [place] [id number] ED Clinical Summary Person Information Name: RJ ELENA [facility] Age: 32 Years : 1990 Sex: Female Language: Peruvian PCP: Mark Pitts DO Marital Status: Single Phone: [phone] Visit Id: Visit Reason: Shortness of breath; [...] 02/26/2023 18:10:02 02/26/2023 18:10:02 02/26/2023 18:10:02 ADDRESS: [address] [place] [id number] PHYS DOC NOTES: MEDICAL INFORMATION: Prescriptions Given: New Medications [facility], [address] [place], [place] [id number], [phone] albuterol (Albuterol (Eqv-ProAir HFA) 90 mcg/inh inhalation aerosol) 2 Puffs Inhalation every 4 hours for 7 Days. Refills: 0. guaifenesin (Mucinex 600 mg Tab-ER) 1 Tablets By Mouth every 12 hours for 7 Days. Refills: 0. Medications to Continue Taking That Have Changed [facility], [address] [place], [place] [id number], [phone] START: brompheniramine/dextr omethorphan/PSE (Bromfed DM oral syrup) 5 Milliliter By Mouth 4 times a day as needed for cold symptoms. Refills: 0. START: predniSONE (predniSONE 20 mg Tab) 3 Tablets By Mouth every day for 5 Days. Refills: 0. Other Medications START: brompheniramine/dextr omethorphan/PSE (Bromfed DM oral syrup) 5 Milliliter By [...] Refills: 0. fluticasone nasal (Flonase 0.05 mg/inh [place]) 2 Sprays Nasal Inhalation every day. each [...] Acute Bronchitis, Adult Follow up: With: Address: When: [place] [address] Business (1) In 3 days 03/01/2023 Comments: Call [...] symptoms. DIAGNOSIS: Bronchitis; Upper respiratory infection Normal [facility] ED Note-Physicianon 02-27-20 ED Note-Physician Basic Information Time Seen: Juan Ott PA-C 02/26/2023 16:04 Chief Complaint Pt states cough [...] and Complexity of Problems Differential Diagnosis: [] [facility] Data External documents reviewed: [] My [...] for 7 day(s), 8.5 gm, [facility](s) 0, [facility], [facility], cm, 02/26/23 15:59:00 EDT, Height/Length Dosing, 85.6, kg, 02/26/23 15:59:00 EDT, Weight Dosing brompheniramine/dextr omethorphan/PSE, 5 mL, Oral, QID for cold symptoms, 200 mL, [facility]s) 0, [facility], [facility], cm, 02/26/23 15:59:00 EDT, Height/Length Dosing, 85.6, kg, 02/26/23 15:59:00 EDT, Weight Dosing guaifenesin, 600 mg = 1 tab(s), Oral, q12hr, X 7 day(s), # 14 tab(s), Refills(s) 0, [facility], [facility], cm, 02/26/23 15:59:00 EDT, Height/Length Dosing, 85.6, kg, 02/26/23 15:59:00 EDT, Weight Dosing predniSONE, 60 mg = 3 tab(s), Oral, Daily, X 5 day(s), # 15 tab(s), Refills(s) 0, Pharmacy: [facility] (more content not included)... [facility] Comment on above: Result Comment: [...] Follow these instructions at home: ? Take bdae-kvl-tkhcvgw and prescription medicines only as told by [...] and water are not available, use hand open claims representative. ? Avoid contact with people who have [...] is easier to cough up. ? Take lxkn-uit-zwgvtss and prescription medicin (more content not included)... Normal [facility] ED Patient Summaryon 023 ED Patient Summary [place] [id number] Patient Discharge Instructions Person Information Name: RJ ELENA Age: 32 Years Arrival Date: 02/26/2023 15:53:15 Discharge Diagnosis: Bronchitis; Upper respiratory infection Primary Care Physician: Mark Pitts DO Provider Information Primary Provider: Charlie Rubalcava DO [employer] Banking Officer:Juan Ott PA-C The exam and treatment you received in the Emergency Department were for an urgent problem and are not intended as complete care. It is important that you follow up with a doctor, nurse practitioner, or physician?s circulation assistant for ongoing care. If your symptoms become worse or you do not improve as expected and you are unable to reach your usual health care provider, you should return to the Emergency Department. We are available 24 hours a day. RJ ELENA has been given the following list of patient education materials, prescriptions and follow-up instructions: Follow-up Instructions: With: Address: When: Mark Pitts [address] [place] [id number] Business (1) In 3 days 03/01/2023 Comments: Call [...] opioids can be used to help relieve frdxhwvt-oy-kefijj pain and are often prescribed following a [...] and family) (more content not included)... Normal [facility] MICRO OTHER TESTSOrdered By: Juvenal Macario on 02-26-2023 Rapid COV Int NEG Ctl Pass (02/26/23 4:45 PM) Normal [facility] [place] Rapid COV Int POS Ctl Pass (02/26/23 4:45 PM) Normal [facility] [place] SARS-CoV+SARS-CoV-2 (COVID-19) Ag IA.rapid Ql (Resp) Not Detected (02/26/23 4:45 PM) Normal Not Detected [facility] Man [place] Prescriptions/Work Noteson 0 02-26-2023 Prescriptions/Work Notes [id number]# 1.00CD:127 Normal [facility] Rapid COVID Antigen ([facility])on 02-26-2023 Rapid COV Int NEG Ctl Pass Normal [facility] Comment on above: Performed By: #### 2 [id number] ####[facility] [address] [place] [address] Rapid COV Int POS Ctl Pass Normal [facility] Comment on above: Performed By: #### 2 [id number] ####[facility] [address] [place] [address] SARS-CoV+SARS-CoV-2 (COVID-19) Ag IA.rapid Ql (Resp) Not detected Normal Not Detected [facility] Comment on above: Result Comment: The BD Veritor? System for Rapid Detection of SARS-CoV-2 is [...] or revoked sooner. Performed By: #### 2 [id number] ####[place] [address] ADMITTED TO INTENSIVE CARE UNIT FOR CONDITION OF INTEREST:FIND:PT: NO Normal [facility] Comment on above: Performed By: #### 2 [id number] ####[place] [address] [place] [address] EMPLOYED IN A HEALTHCARE SETTING:FIND:PT: NO Normal [facility] Comment on above: Performed By: #### 2 [id number] ####[facility] [address] [place] [address] FIRST TEST FOR CONDITION OF INTEREST:FIND:PT: Unknown Normal [facility] Comment on above: Performed By: #### 2 [id number] ####[facility] [address] [place] [address] HAS SYMPTOMS RELATED TO CONDITION OF INTEREST:FIND:PT: YES Normal [facility] Comment on above: Performed By: #### 2 [id number] ####[facility] [address] [place] [address] HOSPITALIZED FOR CONDITION OF INTEREST:FIND:PT: NO Normal [facility] Comment on above: Performed By: #### 2 [id number] ####[facility] [address] [place] [address] STATUS:FIND:PT: NO Normal [facility] Comment on above: Performed By: #### 2 [id number] ####[facility] [address] [place] [address] RESIDES IN A CONGREGA CARE SETTING:FIND:PT: NO Normal [facility] Comment on above: Performed By: #### 2 [id number] ####[facility] [address] [place] [address] XR Chest 2 Viewson 3 XR Chest 2 Views Exam Date/Time: 02/26/2023 16:17 EDT Reason for Exam: Cough Report IMPRESSION: NO RADIOGRAPHIC EVIDENCE OF ACTIVE DISEASE IN THE CHEST. CLINICAL INFORMATION: Cough COMPARISON: 2018 FINDINGS: 2 views. Osseous structures intact. Cardiopericardial silhouette normal. Pulmonary vasculature normal. Lungs clear. Ordering Provider: Charlie Rubalcvaa FINAL REPORT Dictated: 02/26/2023 4:33 pm Sharath Jimenez MD Signed (Electronic Signature): 02/26/2023 4:33 pm Signed by: Sharath Jimenez MD Transcribed by: ESTEVAN Technologist: SHELDON Technical Comments Radiation Dose: Ka,r in mGy = na DAP = na Normal [facility] In office Testingon 01-31-20 In office Testing [id number] .00CD:127 Normal [facility] Registrationon 01-30-2023 Registration [id number]# 1.00CD:127 Normal [facility] ED Note-Physicianon 01-10-20 ED Note-Physician Basic Information Time Seen: Nazario CAO, Loyd Vinson 12/31/2022 10:18 Chief Complaint patient c/o increasing [...] and Complexity of Problems Differential Diagnosis: [] [facility] Data External documents reviewed: [] My [...] Daily, 16 gram, Refill(s) 0, each nostril, [facility], 160, cm, 12/31/22 10:20:00 EDT, Height/Length Dosing, 85.6, kg, 12/31/22 10:20:00 EDT, Weight Dosing tramadol, 50 mg = 1 tab(s), Oral, q6hr, PRN for pain, X 3 day(s), # 12 tab(s), Refills(s) 0, Pharmacy: [facility], 160, cm, 12/31/22 10:20:00 EDT, Height/Length Dosing, 85.6, kg, 12/31/22 10:20:00 EDT, Weight Dosing Disposition Plan Patient Discharge Condition Stable Discharge Disposition To home Discharge Prescription List Prescriptions Ciprodex 0.3%-0.1% Susp-Otic, 5 drop(s), Otic, BID Flonase 0.05 mg/inh [place], 2 spray(s), Nasal, Daily traMADOL 50 mg Tab, 50 mg= 1 tab(s), Oral, q6hr, PRN Follow-up With When Contact Mark Pitts In 3 days 01/03/[address] [place] [address] Business (1) Additional Instructions: Follow-up with your primary care provider in 3 to 5 days. If symptoms worsen, do not improve, or new symptoms arise please report back to emergency department for further evaluation. Patient Education Otitis Externa Attestation Patient seen and evaluated by the physician circulation assistant. Attending physician was present in the emergency department and supervised care. This visit was performed by both the physician and an APC. I performed all aspects of the MDM as documented. This report was transcribed u (more content not included)... [facility] Comment on above: Result Comment: Elec tronically Signed By: Loyd Lange PA-C\.br\Date and Time Signed: 12/31/22 11:53 EDT\.br\Electronically Co-Signed By: Javier Woods DO\.haris\Date and Time Co-Signed: 01/09/23 07:15 EDT Consent for Treatmenton 12-09 Consent for Treatment [id number]#1 .00CD:127 [facility] Discharge Instructionson Discharge Instructions [id number]# 1.00CD:127 [facility] ED Clinical Summaryon 2022 ED Clinical Summary [address] [address] ED Clinical Summary Person Information Name: RJ ELENA [place] Age: 32 Years : 1990 Sex: Female Language: Peruvian PCP: Mark Pitts DO Marital Status: Single Phone: [phone] Visit Id: Visit Reason: Ear pain; EAR [...] 12/31/2022 10:41:35 12/31/2022 10:41:35 12/31/2022 10:41:35 ADDRESS: [address] [place] [address] [address] [place] [id number] PHYS DOC NOTES: MEDICAL INFORMATION: Prescriptions Given: New Medications [facility], [address] [facility] [place], [place] [id number], [phone] fluticasone nasal (Flonase 0.05 mg/inh [place]) 2 Sprays Nasal Inhalation every day. each nostril. Refills: 0. tramadol (traMADOL 50 mg Tab) 1 Tablets By Mouth every 6 hours as needed for pain for 3 Days. Refills: 0. Medications to Continue with No Changes Other Medications brompheniramine/dextr omethorphan/PSE (Bromfed DM oral syrup) 5 Milliliter By Mouth 4 times a day as needed for cold symptoms. Refills: 0. ciprofloxacin-dexamet hasone otic (Ciprodex 0.3%-0.1% Susp-Otic) 5 Drops Otic [...] Otitis Externa Follow up: With: Address: When: Mark Pitts [address] [place] [address] Business (1) In 3 days 01/03/2023 Comments: Follow-up with your primary care provider in 3 to 5 days. If symptoms worsen, do not improve, or new symptoms arise please report back to emergency department for further evaluation. DIAGNOSIS: Bilateral otitis externa Normal [facility] ED Patient Education Noteon 12-31-2022 ED Patient [...] you start to feel better. ? Take zppb-xer-cblqfgu and prescription medicines only as told by [...] Reviewed: 09/08/2021 Elsevier Patient Education ? 2022 [employer] [facility] ED Patient Summaryon 023 ED Patient Summary [place] [id number] Patient Discharge Instructions Person Information Name: RJ ELENA Age: 32 Years Arrival Date: 12/31/2022 10:01:25 Discharge Diagnosis: Bilateral otitis externa Primary Care Physician: Mark Pitts DO Provider Information Primary Provider: Javier Woods DO [employer] Banking Officer:None The exam and treatment you received in the Emergency Department were for an urgent problem and are not intended as complete care. It is important that you follow up with a doctor, nurse practitioner, or physician?s circulation assistant for ongoing care. If your symptoms become worse or you do not improve as expected and you are unable to reach your usual health care provider, you should return to the Emergency Department. We are available 24 hours a day. RJ ELENA has been given the following list of patient education materials, prescriptions and follow-up instructions: Follow-up Instructions: With: Address: When: Mark Pitts [address] [place], [place] [id number] Business (1) In 3 days 01/03/2023 Comments: [...] opioids can be used to help relieve qhqdswrd-co-hoybwf pain and are often prescribed following a [...] guidance from the Food and Drug Administration (www.fda.gov/Drugs/Re sourcesForYou). ? Visit www.cdc.gov/drugoverd ose to learn about the risks of opioids abuse and overdose. ? (more content not included)... [facility] Consent for Treatmenton 12-09 Consent for Treatment [id number]#1 .00CD:127 [facility] Discharge Instructionson Discharge Instructions [id number]# 1.00CD:127 [facility] ED Clinical Summaryon 2022 ED Clinical Summary [place] [id number] ED Clinical Summary Person Information Name: RJ ELENA/[place] Age: 32 Years : 1990 Sex: Female Language: Peruvian PCP: Mark Pitts DO Marital Status: Single Phone: [phone] Visit Id: Visit Reason: Ear pain; DOUBLE [...] 12/30/2022 13:59:40 12/30/2022 13:59:40 12/30/2022 13:59:40 ADDRESS: [facility] [address] [place] [id number] PHYS DOC NOTES: MEDICAL INFORMATION: Prescriptions Given: New Medications [facility], [address] [facility] [place], [place] [address], [phone] ciprofloxacin-dexamet hasone otic (Ciprodex 0.3%-0.1% Susp-Otic) 5 Drops Otic 2 times a day for 7 Days. Refills: 0. Medications to Continue with No Changes Other Medications brompheniramine/dextr omethorphan/PSE (Bromfed DM oral syrup) 5 Milliliter By [...] INFORMATION: Instructions: Follow up: With: Address: When: [place] [phone] Business (1) In 3 days DIAGNOSIS: Otitis externa, left [facility] ED Note-Physicianon 12-31-19 ED Note-Physician Basic Information [...] (H60.92: Unspecified otitis externa, left ear) Orders: ciprofloxacin-dexamet hasone otic, 5 drop(s), Otic, BID for 7 day(s), 7.5 mL, Refill(s) 0, [facility], 160, cm, 12/30/22 13:14:00 EDT, Height/Length Dosing, 85.6, kg, 12/30/22 13:14:00 EDT, Weight Dosing Disposition Plan Discharge Prescription List Prescriptions Ciprodex 0.3%-0.1% Susp-Otic, 5 drop(s), Otic, BID Follow-up With When Contact Mark Pitts In [address] [facility] (1) Additional Instructions: Problem List/Past Medical [...] Diagnostic Results No qualifying data available. Normal [facility] Comment on above: Result Comment: Elec tronically Signed By: Javier Woods DO\.br\Date and Time Signed: 12/30/22 13:54 EDT ED Patient Education Noteon 12-30-2022 ED Patient Education Note [facility] ED Patient Summaryon 023 ED Patient Summary [place] [address] Patient Discharge Instructions Person Information Name: DANYELLE ELENARADHA Nicky Age: 32 Years Arrival Date: 12/30/2022 13:06:22 Discharge Diagnosis: Otitis externa, left Primary Care Physician: Mark Pitts DO Provider Information Primary Provider: Javier Woods DO [employer] Banking Officer:None The exam and treatment you received in the Emergency Department were for an urgent problem and are not intended as complete care. It is important that you follow up with a doctor, nurse practitioner, or physician?s circulation assistant for ongoing care. If your symptoms become worse or you do not improve as expected and you are unable to reach your usual health care provider, you should return to the Emergency Department. We are available 24 hours a day. ULICES RJ Nicky has been given the following list of patient education materials, prescriptions and follow-up instructions: Follow-up Instructions: With: Address: When: Mark Pitts [address] [place] [address] Business (1) In 3 days In the event that this physician does not participate in your insurance network, please consult with your insurance company to find a nearby participating provider. Patient Education Materials: A MESSAGE TO ALL PATIENTS REGARDING OPIOIDS PRESCRIPTION OPIOIDS: WHAT YOU NEED TO KNOW Prescription opioids can be used to help relieve hqadbhnv-eb-oozruw pain and are often prescribed following a [...] guidance from the Food and Drug Administration (www.fda.gov/Drugs/Re sourcesForYou). ? Visit www.cdc.gov/drugoverd ose to learn about the risks of opioids abuse and overdose. ? If you believe you may be struggling with addiction, tell your health director of critical care and ask for guidance or call SAMHSA?S National Helpline at 6-241-511-BIHW. u Source: US Department of Health and Human Services/Adeline (more content not included)... [facility] Registrationon 12-27-2022 Registration [id number]#1. 00CD:127 [facility] Consenton 12-26-2022 Consent [id number]# 1.00CD:127 [facility] Registrationon 12-26-2022 Registration [id number]# 1.00CD:127 [facility] Consent for Treatmenton 12-08 Consent for Treatment [id number]#1 .00CD:127 [facility] Discharge Instructionson Discharge Instructions [id number]#1 .00CD:127 [facility] ED Clinical Summaryon 2022 ED Clinical Summary [address] [address] ED Clinical Summary Person Information Name: RJ ELENA [place] Age: 32 Years : 1990 Sex: Female Language: Peruvian PCP: Mark Pitts DO Marital Status: Single Phone: [phone] Visit Id: Visit Reason: Foot pain-swelling; ROLLED [...] 12/21/2022 14:54:11 12/21/2022 14:54:11 12/21/2022 14:54:11 ADDRESS: [address] [place] [address] [address] [facility] [id number] [facility] DOC NOTES: MEDICAL INFORMATION: Prescriptions Given: Medications to Continue with No Changes Other Medications brompheniramine/dextr omethorphan/PSE (Bromfed DM oral syrup) 5 Milliliter By [...] Ankle Sprain, Phase I Rehab; Ankle Sprain, Baik-wt-Ofqf Follow up: With: Address: When: Mark Pitts [address] [place], [place] [id number] Business (1) In 3 days 12/24/2022 Comments: Follow-up with your primary care provider in 3 to 5 days. If symptoms worsen, do not improve, or new symptoms arise please report back to emergency department for further evaluation. DIAGNOSIS: Left ankle sprain; Sprain of left foot Normal [facility] ED Note-Physicianon 12-22-19 ED Note-Physician Basic Information Time Seen: Nazario CAO, Loyd Vinson 12/21/2022 13:34 Chief Complaint pt reports standing [...] and Complexity of Problems Differential Diagnosis: [] [facility] Data External documents reviewed: [] My [...] Mark Pitts In 3 days 12/24/2022 EDT [address] [place] [address]- Business (1) Additional Instructions: Follow-up with your primary care provider in 3 to 5 days. If symptoms worsen, do not improve, or new symptoms arise please report back to emergency department for further evaluation. Patient Education Foot Sprain Elastic Bandage and RICE Therapy Ankle Sprain, Phase II Rehab Ankle Sprain, Phase I Rehab Ankle Sprain, Qctj-cn-Vbht Attestation Patient seen and evaluated by the physician circulation assistant. Attending physician was present in the emergency department and supervised care. This visit was performed by both the physician and an APC. I performed all aspects of the MDM as documented. This report was transcribed using voice recognition software. Every effort was made to ensure accuracy, however, inadvertent (more content not included)... [facility] Comment on above: Result Comment: [...] on your foot. General instructions ? Take jthb-ngn-dhgfuuf and prescription medicines only as told by your health care provider. ? When you can walk without pain, wear supportive shoes t (more content not included)... [facility] ED Patient Summaryon 023 ED Patient Summary [address] [address] Patient Discharge Instructions Person Information Name: RJ ELENA Age: 32 Years Arrival Date: 12/21/2022 13:23:04 Discharge Diagnosis: Left ankle sprain; Sprain of left foot Primary Care Physician: Mark Pitts DO Provider Information Primary Provider: Charlie Rubalcava DO [employer] Banking Officer:None The exam and treatment you received in the Emergency Department were for an urgent problem and are not intended as complete care. It is important that you follow up with a doctor, nurse practitioner, or physician?s circulation assistant for ongoing care. If your symptoms become worse or you do not improve as expected and you are unable to reach your usual health care provider, you should return to the Emergency Department. We are available 24 hours a day. RJ ELENA has been given the following list of patient education materials, prescriptions and follow-up instructions: Follow-up Instructions: With: Address: When: Mark Pitts [address] [place], [place] [phone] Business (1) In 3 days 12/24/2022 Comments: [...] Ankle Sprain, Phase I Rehab; Ankle Sprain, Ffdd-ud-Jjwt A MESSAGE TO ALL PATIENTS REGARDING OPIOIDS PRESCRIPTION OPIOIDS: WHAT YOU NEED TO KNOW Prescription opioids can be used to help relieve zrqtdcra-lo-slykjo pain and are often prescribed following a [...] Drug Administrati (more content not included)... [facility] XR Ankle 3+ Views Lefton XR [...] Venegas MD, V. Transcribed by: ESTEVAN Technologist: ORB Technical Comments Radiation Dose: Ka,r in mGy = . DAP = . Normal [facility] XR Foot 3+ Views Lefton 12-08 XR [...] Venegas MD, V. Transcribed by: ESTEVAN Technologist: ORB Technical Comments Radiation Dose: Ka,r in mGy = . DAP = . Normal [facility] Registrationon 12-16-2022 Registration [id number]# 1.00CD:127 [facility] Consenton 12-15-2022 Consent [id number]# 1.00CD:127 [facility] Coding Summary.on 09-06-2022 Coding Summary. CD:[id number] G h0bWw+PGhlYWQ+VD2WWXO xW05ziDLraY8BP2oNBK6B IPNRGPBZZU8JSC8lwEZ4K GbhV5LqntIm TwqnbPIaOO42DAt4EWJ0i NqqRYeirB4xiAOgD1g4Zf AbLD05nA70QCvtMBSiXpE 3LjZpbjsgbWFy J4xnZiBeuDBiGra+PHRhY mxlIHdpZHRoPScxMDAlJy DpkThdFF9rSs0iEJWtJNO vbGxhcHNlOiBj f4bnNHFtFHruAA8wjAbzM 7KirOW2RUHgv2g8En81kT I+HQBgJYI0lYfzEIiyt34 2KzYnk0wbIAW0 eCTiFGymJMW1X76ue2B3C AOzSOFfDGI0xLQ0wX6zfA bisqbzC2ZaxDHkRwD3FUK 0pXHfcX5adXii zeinfH6eUbq+T92UZG5JV GTCXR2GAyy4P6CaYfmryI I+UQ60GNHfVA46xWObfTS mt4uydDm7EhQr EMUxMGS7oAryUEdoc2MvQ XIiV67cqIZrs8H5EJAtvQ tszYMoBuQseXN4yH4vNPt yssymz3fxalfi Watjk1bhsw76uD60C41bC AmuSJCjOWP7TCHdXINxgZ rscl4gcL9hHx2+VSbgc1v ht3vrbNy5WyGj XXSsqqFqoVqoDYN3e9SqS u11T0EshCuzt1VnOml3tp 45dJCwb3P1vES0RFqjHFA jcR7vTCatYtU6 YSNmZnZnnE12kTJbQEzvN o2swIdkhGqcGR8hZZVurb nhQZAszB3bOSBvfLMugXg qTY2kYHRahpjo p961ZxXeQPL8RUIldRUqJ 8DurM0sNxHrWSToRMVxY5 XkeODcLLarA844WOikTgS 1WIGzxdUdE1Kx CQNjzCixCeM3f1B3Mh3Qk 6BzphbiQYD7AJhbDDUnPc E2HqTaDaT1P6IwVfl6YCH spPazFG4aL6Pg SITxwariqajheKS6TOUeE VChrS63tFZcHCijQn7nf9 A0m583INCsHTVjsK67Fe6 udDogMTBwdCBU lO0tcovye7pcajyaOdFwP DVaZKq5VZd1ATGeqBkxHd PbINI7MxU6MRQ3bBRbwI6 igWonbaqwaB6h Oyc+E94kxG0xUYN3AUB6z sftSOTjjwIeNK01DB97I1 RyPjwvdGFibGU+PGRpdiB mdBrrQN1lDqBe g8csy9IuRTuuM9OtXJJdX XdvVdd4YONaUSI0gCN0dO 8fJFTzIVmod0R1fTJ7T5T qmnAmct7xh3zd RZJbNPgwZ58xwUMmf7M9H XGkmFI3SPAkjAnmYzGvnC 93Oyc+DHKshGocm0NlYyu xt6lao3lghHe2 RdMzFHVlvbTbnFlsKHS6k 8BhAj39W04pEEauAMGxJI TsMYJvOOVtmDvnmy2ntB8 wIi8+PGNvbCB3 yUJ3pE2uOAWxLyT9LCnpT 582RqFaaJHeNcdgk0drq0 wwlVt7OqGvJGVomoGkzVj lRIU5j2DzGy71 Y85eJKelTETsJKTuATVqA YSiyByghe5dsM3aId9+PC 6rp8iggt59lJ20gUD+PHR jXRJ4lTjtSXao GZJuwM0hFXkbDvP6YJTlG oCvrU39aGUzWXbwAo1ecG khzUwwYC6dCGZrestuc07 3RjLrm1yrFAAy wIIfYMpfRZN3L44re9B1Y CDcZDWcIDQ6xEO6fB3knU lnbjogbGVmdDsgdmVydGl yHUmaXSiaB760 IHRvcDsnPlBhdGllbnQgT oZzNMi5S5LqZmm8NEUtvW kiHG6gyOLoXMaeOs4liCm yjWgnWG9dIESf yplpd462KhWeh6kaXFXkn RStAUeaGXK0F02ej7I8RC TxXKYaNKF7uXV5gN5qvMj nbjogbGVmdDsg qiGuaJjvELgcTOzdA477D HRvcDsnPkJpcnRoIERhdG C7MU99QU34aZEdg9C2rPZ 4R1FzMUSxhjnm vybchBC0QZThEWApjZ48Y v0krDaqKg8rUFVeCQQ8LX LsvURpA3PniF2aWkFcREM zJHBtT0PyjGVi TYozU161ESuwNmU8MKPpt qLdW8IiHHJpiAhaUiW5n5 E3Gx0GP8Y7RR92YW51cWK jh4N1vIF6E8Ex EABexnegyeewkLP4UBPhQ PWnyE00Re1cmNxuSf5uSR DvGSI5ZJOtdWYsF4NixE3 yOiAjMDAwMDAw I7OkkZJbGZnzR240KPmvJ kA5UULujcKlA9GoXDYdzB ehSvH0x8P9Nn3VUKq9XF7 0EG55zMYgh9G8 sQH6N6IrSKCivylpkbmtg TC2CAXaBPCfqQ27Ay7guJ wbAj7kVMCnUKA1ZOBdxVZ uW9EinX0cNnNr ISSuAKAlK1JjyCIvWUfgY 472WVewPgQ0YIUyyqUuG3 DcZXBvgHdhAqS8k6T0Fq1 LGNQwJF75BSP0 fZQ0LG43UB24V5XrKsbnk GFibGU+PHRhYmxlIHdpZH RoPScxMDAlJyBzdHlsZT0 gVj3yNHNyXDVc zDkozJKmLgMxc5xxEJIzS FmtJC7rjAwfM5XmrAC8AG Ibx3b6Um67C81dM9BadZF +WJHwaZP1eVK1 yM3gKtJpRxK8EKdsI689Y nOfzMLnBhuja7mun0pnmF t3HwY9QGMihxLyjVuzXSB 3r7QsYk54R39x IHdpZHRoPSIxNSUiIHZhb Vpdnc4ntB7jVg0+PGNvbC T8hAC2tS0wPrSsSnU9IUq pX951QfCmwGXj Ezcbo9mte7iomXa4GqRwN FOhscDdhDynASI2c6FfNl 97S6LfoOtvi8AqJak2kt0 0gSXiw6V4eYZ1 M8GuZDLdbzzuaLPseLfdS U7oGHDxdlhmIPSysB1rOX CvS1v4QhLaGtR5ACauG9F fxuA3NUMisXNs PGkoCCH9S79kz1H8PMSoU AFsCCS2vTD5xA2rcEmtni ogbGVmdDsgdmVydGljYWw sXPryN194BVVk oEkfWUBpfU4lRDJekQVur JahEE7bQKGglazyKnXKLS NOINcnLJLGI4ZCKVkTIJP gRzwvdGQ+PHRk QZR7dVhzRWraDVHacY8lH MZyR6c7NmFmZxA1OTodN8 DoTRWwvznlNl89lK3lYcG zLbH9QJxuP3Ug cuL5ZVIylNAwHNazMFS7Z 91fc8F3BGUmZDKlMNX5gM J9kX9cmMpgajpihYYuaNu gdmVydGljYWwt EFyfL022HCBpnCyjAeSuH nS7ZjZ1GDR4X5NhMkc6KA LzjWpbNG9hfEOwDQojYl7 ycIdrcFsfCV3r XYDsnfuxFAPhzL2yXLWzc FMwePymUL2tRYTxxxfki0 84VvOzTVM5MLTefTSoB1U coW2tKnQrIRAl CTAyA2FbzMUwQDoaK837X CxiYiL8CULycrRnU3UsJX QwwXubQfF1x3L3Yx8zTlQ ZZWFyczwvdGQ+ ATGqMOV2kTtnSTrnVLBht V6bTVZmO7t0VlMvOpU9SG dcH1SrOZSkktoxIn87tR8 aAiSwQnD5VEqj F7DlywP1RMPzoNVlGPugD HL6I46zy4Y8GYHtUKMcLR N1aSA6kV9miKdkeamedEP mdDsgdmVydGlj IVeiRImzH423SDXzvKeqK kZlbWFsZTwvdGQ+PHRkIH C6vWxgTGskTBWccF0wAWJ zY4h0QoNfFpP3 HNtpQ1XuGARargfaCr78x P4aIlOgMoJ4ZLqzY5Cbro G7XMVzvBYcDLgbXWQ4U58 ju3R7HLMkBQPp QRX2oLY0jL1juPkarrcbm GVmdDsgdmVydGljYWwtYW yzU665VRFfwAwgGsYuYLN bUI3hhRtjeZW+ JT75zj45S8HeHhjkHnt4R GHmGTK4jWN6yF0uDRSiKR deu6V3xVQ4B2UtxoFgrp8 ry6dsDPVpRXkb F97hdJNkw4C2PYGolDT7I EKeaLcaZqYotX30Qco+PG CxjZhiu7QzAebde0csx3x nxFv6WcZnENRb snYywPwyKQH2v8PqCx57P 29sIHdpZHRoPSIzMCUiIH KqnIysnd7gcW8xWh1+PGN jzGJ8oNB9gC0z FdTrCgV2HWssT740IxVnk CTdJlqts2vhg0bdtAp0Zw BpMGFhgyNvvFydYOA0n3P eIm94X6AhtXel j1DvOwi0cx87jXEwn5T5b GH7L8LpCTDqownqnJMyqS roYR2iXYUnvfejHGWxkL7 dVMLuU2x4NtJq BnY2GAooD7EqzuM0NHJjz LJiXWSsxPXKoN3axeehg4 ewjknwAkKoFGKoXDb4FSu 0LWFsaWduOiBs MIA2ReE5ZTY0wTDduK0uf CwlazjahI0eFeb+UGh5c2 hjpEHhCC5bqRW4WS11BK7 9gOScn3J5mHL4 E2XsYCGswcghfdztlDC6Q ULcLWGprQ21Sp1yvPhpQl 1dCJWfGAW1HCEktBRlN3K dnF0jLjDdOIBf JNBaB5ZqlKUmHKxjV463K VnoMbK8KXIqceJfN4FyPD JqwXsoCkP8p8I9Fn1LIU5 3YA49BX60mZUf n5P0yAU9Q7TwCXOeuhcgi vdmqMF0KWIbRUEshN94Gh 1euJnjRg1sCHMvHXF2BAY zkKSnB3SdcI7q ReUnIRBgTLVzD7EkgFJoV KvcT892UBvjTgT3WMRzxn JjH0SbZHEqdSieVjV8k7F 6Pt4XMj67TD88 FV03yFUqv3M3bNJ8G3MvC RGkobuthgsasMQ6RKArQC IsqH73Lp2rqThrFa6sTPK uRVC5DTJdgUNq P2LehV3rYaEmUUWxHMUpN 6VwzZDxEActR403CQytSi L7UFMtrjXkJ8VxBMQkbJz qRtU9x3G1Er9P NJwzghh6V2LaMraihUZ+P T08FKWpVG45hGHyrTGui8 agfSs1VjOvXWRbAPE3sTx zPVekg7UdLUWq Y29s (more content not included)... Normal [facility] Coding Summary. CD:[id number]:[id number] G h0bWw+PGhlYWQ+MO5WVYG lT52dzBPghV7NS7vGMH3M QANWIWEJNE3VOF5xrZM6S VsyC3AstiEx MydynNUsHM43MKw9RMU7h SehKLsulV4lyNNhQ6r3Bo BmUH09mS19WQboLPVvEoF 3LjZpbjsgbWFy C8aoUiQyuWSpDfx+PHRhY mxlIHdpZHRoPScxMDAlJy XcsGpoMK0eFu6eZBDeZHR vbGxhcHNlOiBj f8djQCGkKVaxSY2vsJgnO 0VjdPV7KKUxa1q5Xb98xF I+VMJnZRJ5gWjwVEsqu98 7NfShz2axFLH9 sXJaAGejPFJ8X61ch1X6B WChKAEsECG9hDZ0yL5zlG pjdmmyU3BvdFSpNjO1VJK 4lQIflG0toHeg smxatR7qTgt+J95WLX2TU WXEBW8DUgv0J4HnZztwmQ I+UH05XRYuSG77gFTpxAV uj0vzxNk3PaRl QZAqYZI9hBfaDQqge8QvU CEfJ21tsBQau4C7SWQuqT rmzEPeGbNomWJ7gX5rIDz vwsjhw1qxomsl Jjjwh1eahn12eR64T22hY HctKVZiAOM9RTEfJGHewE vsgp4tyL2kZq3+ZGbvo2g ql3srrXb0SlXs DWSmtwJcmRsyLHJ2r7SqB i24X0AaaJvcx3WmAzm6bm 04qKWsp6Y7yCA7CIlxDUR wyW6oOHizKhM6 DGTeBtEqeB07cIHvDHmiW d0eeUzzsLqmKT1kUUYxrv jpDERekE7uSZIjiEHowKl gEA9oHJTnyqgd n877JxMoPTC0RGLbbRBsA 6WryZ2uDrMrCRYtOTZxM0 RahIFwTHrsK857QTtcLsY 9ZBLtunOvD4Yk VRPruCemBiS9v0K9Jm6Fh 8KzrlndYAM0KJxeBCVnQj R3PxYoPkN8F4JnSks1SEE jyPhuER5vO8Fq LRBbfwfmdainoXE4KNNgM HAprP09kOCiJXgaOv4ks9 P6k557VFYuTHYjeO03Au1 udDogMTBwdCBU hT1kmttxh7hzqaojNxLyD MEwEMu1SYd7GFYycGqgGv VpFCV5DlS5YUS9aBGibW4 pbBcgepfsiA5h Oyc+E79nzS3oALI8CFA1c wxqQKFjotFmKR34JN10J4 RyPjwvdGFibGU+PGRpdiB coMgmNQ7nAbFe n6ycd4HxFCxgH9XqFDRmN JmgTfl9NCKtUPJ4aZC8hY 7lCHPvMQiay3G6rOX1N8L zyzWxqj6xn5ce GYQpRKnsS76vfJTtx4E4H BYgeQA0CBJneMicSlXauB 93Oyc+DKOjfYnor9ZlCsz dd3cpm2jmjPa2 KzDcZQGlzrAsgXywVOT7s 6VxRd24T04aORfyGPNcLJ AbDGIdFMAewJijmo4icA3 wIi8+PGNvbCB3 zBD8pX1sVPPwNvE5KTydM 143PyUjeUCgQyxyd5hza0 orcBg6XiAjWROyhoPljHy xYWS9d4UhNn85 M70zIXgbCMIoIKSjBSVnR AQbhHxvos3vuK2rWt5+PC 0fk5iulc41dI56hBE+PHR rBFL3yGrqEYhw MYLdoJ1tKCpkGiA1VHVvO sZegQ25bYIpOTrhRl4voW jvxRncPA6nZRZwidfiq77 3ZlUpd9mdBZBb qTGtSWajVWZ1F21hl0S6Y VKxIWUkEMV9zDI7jE2leH lnbjogbGVmdDsgdmVydGl gZPfcIRhqL971 IHRvcDsnPlBhdGllbnQgT wWiTYm1M1OhVpm3SRXbpJ qdFR1hvARjDCqmCy3zdIz ddWkvDO9dSUXu unezf272WvSfh1ivLQYmz JDpMQamDHT8M47rc6O5RQ TjZKEcENI7nSB7fQ8xdEc nbjogbGVmdDsg qaCcfOlaRXreAFhxZ477X HRvcDsnPkJpcnRoIERhdG T2ZR14ZW06fUBnc4P9yUX 7F3SdXNQtzqee iwylhXU7BDIcOHZglD78Y s1nkFpgVi1nKAHoLLX0DK KphAPpB2VcmX5xXmBaYEY hJQLcN3XjzDLp IHliN429RBbjLhI0PQBqy eGuN5EkPEHtaCexAkY0g8 K7Kc5XT5M6CS98SP10zFL cw1L3aAL5A4Ek OCFdazzfzqqzxCF1JHYgK KVvgX77De1toJejUo6ySW PwCBG3QQTvtJInR0IbuY2 yOiAjMDAwMDAw P9LckYEyMDrnS019WWrcG jB4HCClhcPiB0DoKFKbaW tmCbO7i2F7Li1PBYw1GX8 4JI37qLIsi0S1 vFP4J0JbCRHtotntjaabf BG2XQLtFYWlqH57Gw7pvY twLk5tWEEjVZB4RVQqeTF jG1EorH2fUjSa ESYmLJAmQ1HkeLYdCVrkO 579BSxyTrS8VGEtrsZkQ1 HtDMVfdKetThN4j9Z5Wa9 QSANeWY21JYA2 zWF8MJ91ZU26V1SbHtlxd GFibGU+PHRhYmxlIHdpZH RoPScxMDAlJyBzdHlsZT0 rIv9tSKRbGLAr zZcdoJAqViUxg3nqTNVfW JolSY0orXqqK9LdjKG9RW Jhm9c5Fm67H84nC2TfnBF +MPSdkOP4gAB2 rF6pVvZlErF7QRlsI949N lMxbSUeEcpgb4odt6vboR e1QeH5YZLraeHbhPhdMGM 2y8AxWz24O10p IHdpZHRoPSIxNSUiIHZhb Hnhex9eiM6qHc1+PGNvbC K9yIA6dA8qXdXbAqI7TXc mU538GiFppABr Jlzzq7uww1fgtZj7RaFqX PRfdtBrjPlnMJW1t1XgJa 58B7GdqHojd6WeBbt0lh6 9bAVje0J6qOM4 Q0OiCBBpkajtjMOfcEjrM Y0oCAVuttrmOQXdsZ3oMB SxA5w9QzIwDyU2ILehE3F ilwA9FPXlmZGi JVioMPF1U96wp5A8UVQkT UKtZFI9uSB4eW7tjYajso ogbGVmdDsgdmVydGljYWw oKCbxR218XQJw lEzvYZDriT9jKCTxtHNwj UyrCQ7qCNWjmlcqGuNSTM EXRJgzFARZI9ZULImSJWX gRzwvdGQ+PHRk WYI2eQblAYasTABhvC0dY WJtO8s2KnKvAuD2BIqkZ2 PsYSEhxjqbPb69vI8bUkV aLlQ5IMlnJ7Lt hkJ3AQVetKFaTJpdVJP1X 80jr2U9LSJbEXFcDJY0eN P3zS9ddOnqtrnuiSPxbRy gdmVydGljYWwt TAjmZ564AQDopPcuPzLxS nZ7TlT9IOB2N5WgXen9MQ JxrJmsZK5tvSDmWDbzSj2 zgXhviHglCJ6j VWIfiykkQRHqzY9nHDQih OMkbXbsOE1sKUGqmbmhj1 21EpQkAIO0YVJotMSgF2J wgK5kUySrTQZx BFNhB9WyxQPkZHbxO913F TriClK9RPAtsxMrC6FiMT QwgMdjXxE5v8E5Eh2pAxE ZZWFyczwvdGQ+ DTTwKGE4iTafRDtdCNWwr J7oWULbW3n4GoXtRgR7WS wuQ3GaARVjzunuXu42pL3 dZzJuGqR9EWgh I8XyblA6TKLnyEGwQRtyR AC9C44jw5S8RBSsOHSyRP T9rKG9kC2gpDvgijllrFI mdDsgdmVydGlj SNowGYzkC125JFTirKtfJ kZlbWFsZTwvdGQ+PHRkIH M2vCkvAUnxRWBrzT7jOOR xD3i8MrMoXbW7 YUchI7MrOKMtsaluNm96x W9qNdVwNeF1WDptG6Bgbm G5NHHklVWlTFvfNRN3K54 lr2Z6LXWiSUZq AUZ2yIB9pA7urUshfnvmt GVmdDsgdmVydGljYWwtYW nbR699RMWgnXxnXbPmFWU eBU4qqQrdwFA+ VG76gc00H0ChPlvnWeu6P WNlXFE4kLF7pT2tGHQyZS zof3T2mYY3X9BdsiSirw7 nz0biUQKtNGwo T26dhIHoq5B3GCBuiAB1X HRzmUrnNsTkuN40Dak+PG OggWwge2SyGjpjd5wao1z ioSt4AwTpSLZj usEpgFclCSC0z4HwTf92Y 29sIHdpZHRoPSIzMCUiIH OrcHjagt4odL5kCc8+PGN ktTV3xOE5gJ4v UxAiEpO7FDowA895XcQvf WVhXoeym4rdr8bgdMr4Wy PcPQOowrEtfLgwCGQ0e3Y aHu27N2ZipOlm z0RcTfq4au84mJEsx9F8e ZU8N6XhWSPwqcbwtGLggD wvHK0lZPHmfdplHNZxeI1 uSHLmM1p5YvFd UeC3SCmpA1VbocF1JAZdx NGlDKKitJAPpP0csqois6 afixqgKtSlQTIqCUt7XGc 0LWFsaWduOiBs LMC7ArD4ILU6mKBkhY8mo TzeqccspG0fEmr+UGh5c2 ldrUZfFY1ssVU7LR45WR0 9cWCsf8T7cZX9 Z8CyCJBgkiycojrcrEW0W ZLyTLTvrP36Ou3nuForTd 0gJYQqNDN8KHFucDDaG7D ayV4yKdKeVLXx QVSxM3HiyNLnJXmbS336R JrkIlZ7VYPaorZnY8OmBM NkeHerExY9r6L1Il8HLY5 3PE12PI30bYYw v2M2vNN3K9SlGAKajvwfh amhvVY0UYOkMOVvpW97Zb 0dqTqvXm7yQGZkEJL8GGO hnDQuI6ZzhP5n SaEkUKHtTZBbY4IixNFvU DgeU409QZiyYpI8OBLphj GzX0DnFHIvwKipDsQ8c8I 8Bc0LFx91FR94 MN84xUUio2M7wFK6C3YmH IHvnwioqcbmpYZ6HSJiAR StuF77Hk2lfDsmTz7uAKZ oNZG4LOYdmPWe K9ZemZ7oHeIfNVIoNVXrA 8RdwECiWOqbB772QGlvVk D7LDBsnmSrG2EhLBPudOm uZuZ9n8H2Pz7U PZkynip0V2LeVfrwwIZ+P P44PNXiBX36qDBswRScf3 rxfJe9LjRlOVPkYDL6jWc dIMwdr8YbSNPx Y29s (more content not included)... Normal [facility] Discharge Instructionson Discharge Instructions [id number]# 1.00CD:127 Normal [facility] ED Clinical Summaryon 2022 ED Clinical Summary [place] [id number] ED Clinical Summary Person Information Name: RJ ELENA [facility] Age: 32 Years : 1990 Sex: Female Language: Peruvian PCP: Mark Pitts DO Marital Status: Single Phone: [phone] Visit Id: Visit Reason: Rash; Allergic reaction [...] 09/05/2022 22:58:39 09/05/2022 22:58:39 09/05/2022 22:58:39 ADDRESS: [address] [place] [address] [address] [place] [id number] PHYS DOC NOTES: MEDICAL INFORMATION: Prescriptions Given: Medications to Continue Taking That Have Changed [facility], [address] [place], [place] [address], [phone] START: predniSONE (predniSONE 20 mg Tab) 3 Tablets By Mouth every day for 7 Days. Refills: 0. Other Medications START: predniSONE (predniSONE 20 mg Tab) 2 Tablets By Mouth every day for 5 Days. Refills: 0. Medications to Continue with No Changes Other Medications brompheniramine/dextr omethorphan/PSE (Bromfed DM oral syrup) 5 Milliliter By [...] hours. Refills: 0. PATIENT EDUCATION INFORMATION: Instructions: Hives, Bcmi-ju-Rixf Follow up: With: Address: When: KATJA MCGINNIS [address] [place] [address] Business (1) In 3 days 09/08/2022 Comments: Follow-up for further evaluation of your urticarial rashes and reactions. With: Address: When: [address] [address] Business (1) In 3 days DIAGNOSIS: Allergic reaction; Urticaria Normal [facility] ED Note-Physicianon 09-06-19 ED Note-Physician Basic Information [...] She states that she thinks it was penicillin/amoxicilli n that when she was giving to her [...] that she has never follow-up with an lease operator before. Denies any chest pain. Denies any [...] and Complexity of Problems Differential Diagnosis: [] [facility] Data External documents reviewed: [] My [...] I do want her to see her lease operator. Discussed return precautions. Follow-up with your primary [...] date 09/05/22 21:11:00 EST, STAT, Start date 02/27/23 21:11:00 EST, 09/05/22 21:11:00 EST epinephrine, 0.3 mg, IntraMuscular, Once, # 1 kit(s), Refills(s) 1, Pharmacy: [facility] (more content not included)... Normal [facility] Comment on above: Result Comment: Elec tronically Signed By: Loyd Lange PA-C\.br\Date and Time Signed: 09/05/22 22:31 EST\.br\Electronically Co-Signed By: Quita Clark DO\.br\Date and Time Co-Signed: 09/06/22 00:10 EST ED [...] Being allergic to foods such as: ? [place] fruits. ? Milk. ? Eggs. ? Peanuts. [...] at home: Medicines ? Take or apply zsgr-rrw-ratggqw and prescription medicines only as told by [...] causes your hives. ? Take and apply xegn-rzn-rgfjoop and prescription medicines only as told by your doctor. ? Keep all follow-up visits as told by your doctor. This is important. This information is not intended to replace advice given to you by your health care provider. Make sure you discuss any questions you have with your health care provider. Document Released: 04/04/2009 Document Revised: 01/09/2019 Document Reviewed: 01/09/2019 [employer] Patient Education ? 2019 [employer]. Normal [facility] ED Patient Summaryon 023 ED Patient Summary [address] [address] Patient Discharge Instructions Person Information Name: RJ ELENA Age: 32 Years Arrival Date: 09/05/2022 21:00:52 Discharge Diagnosis: Allergic reaction; Urticaria Primary Care Physician: Mark Pitts DO Provider Information Primary Provider: Quita Clark DO Advanced [employer] Business Banking Officer:None The exam and treatment you received in the Emergency Department were for an urgent problem and are not intended as complete care. It is important that you follow up with a doctor, nurse practitioner, or physician?s circulation assistant for ongoing care. If your symptoms become worse or you do not improve as expected and you are unable to reach your usual health care provider, you should return to the Emergency Department. We are available 24 hours a day. RJ ELENA Nicky has been given the following list of patient education materials, prescriptions and follow-up instructions: Follow-up Instructions: With: Address: When: KATJA MCGINNIS [facility] [place] [address] Business (1) In 3 days 09/08/2022 Comments: Follow-up for further evaluation of your urticarial rashes and reactions. With: Address: When: Mark Pitts [address] [place] [address] Business (1) In 3 days In the event that this physician does not participate in your insurance network, please consult with your insurance company to find a nearby participating provider. Patient Education Materials: Hives, Lrhh-go-Cdfh A MESSAGE TO ALL PATIENTS REGARDING OPIOIDS PRESCRIPTION OPIOIDS: WHAT YOU NEED TO KNOW Prescription opioids can be used to help relieve mmroclaa-lh-jxfhns pain and are often prescribed following a [...] guidance from the Food and Drug Administration (www.fda.gov/Drugs/Re sourcesForYou). ? Visit www.cdc.gov/drugoverd ose to learn about the risks of opioid (more content not included)... Normal [facility] Monitor Recordon 09-06-2022 Monitor Record [id number]# 1.00CD:127 [facility] Consent for Treatmenton 08-11 Consent for Treatment [id number]#1 .00CD:127 [facility] Discharge Instructionson Discharge Instructions [id number]# 1.00CD:127 [facility] ED Clinical Summaryon 2022 ED Clinical Summary [place] [id number] ED Clinical Summary Person Information Name: MITUL ELENARONALD Saunders [place] Age: 32 Years : 1990 Sex: Female Language: Peruvian PCP: Mark Pitts DO Marital Status: Single Phone: [phone] Visit Id: Visit Reason: Cough; Diarrhea; Fever; [...] 09/04/2022 14:23:43 09/04/2022 14:23:43 09/04/2022 14:23:43 ADDRESS: [facility] [address] [place] [id number] PHYS DOC NOTES: MEDICAL INFORMATION: Prescriptions Given: New Medications [facility] 1986, [address] [place], [place] [address], [phone] brompheniramine/dextr omethorphan/PSE (Bromfed DM oral syrup) 5 Milliliter By [...] Infection, Adult Follow up: With: Address: When: [place] [phone] Business (1) In 3 days 09/07/2022 Comments: Return to the emergency room if your symptoms get worse or any new symptoms DIAGNOSIS: 1:Upper respiratory infection Normal [facility] ED Note-Physicianon 09-04-19 ED Note-Physician [...] and Complexity of Problems Differential Diagnosis: [] [facility] Data External documents reviewed: [] My [...] (J06.9: Acute upper respiratory infection, unspecified) Orders: brompheniramine/dextr omethorphan/PSE, 5 mL, Oral, QID for cold symptoms, 200 mL, Refill(s) 0, [facility], 160, cm, 09/04/22 13:15:00 EST, Height/Length Dosing, 85.6, kg, 09/04/22 13:15:00 EST, Weight Dosing Influenza A&B Ag Rapid COVID Antigen ([facility]) Disposition Plan Patient Discharge Condition Stable Discharge Disposition Discharged home Discharge Prescription List Prescriptions Bromfed DM oral syrup, 5 mL, Oral, QID, PRN Follow-up With When Contact Information Mark [place] In 3 days 09/07/[address] [place] [address] [facility] (1) Additional Instructions: Return to the [...] Current, 03/08/2019 (more content not included)... Normal [facility] Comment on above: Result Comment: Elec tronically Signed By: Solo Kimble M.D.\.br\Date and Time Signed: 09/04/22 14:20 EST ED [...] to help relieve symptoms, such as: ? Ybxg-caa-mcjvigo cold medicines. ? Cough suppressants. Coughing is [...] other clear broths. General instructions ? Take vkfz-prh-gyaruhv and prescription medicines only as told by [...] and water are not available, use hand open claims representative. ? Avoid touching your mouth, face, eyes, [...] common infecti (more content not included)... Normal [facility] ED Patient Summaryon 023 ED Patient Summary [address] [address] Patient Discharge Instructions Person Information Name: RJ ELENA Age: 32 Years Arrival Date: 09/04/2022 12:56:58 Discharge Diagnosis: 1:Upper respiratory infection Primary Care Physician: Mark Pitts DO Provider Information Primary Provider: Solo Kimble M.D. Advanced [employer] Business Banking Officer:None The exam and treatment you received in the Emergency Department were for an urgent problem and are not intended as complete care. It is important that you follow up with a doctor, nurse practitioner, or physician?s circulation assistant for ongoing care. If your symptoms become worse or you do not improve as expected and you are unable to reach your usual health care provider, you should return to the Emergency Department. We are available 24 hours a day. RJ ELENA has been given the following list of patient education materials, prescriptions and follow-up instructions: Follow-up Instructions: With: Address: When: [place] [address] [employer] ([employer] In 3 days 09/07/2022 Comments: Return to [...] opioids can be used to help relieve nwtctukk-vu-mbvaaq pain and are often prescribed following a [...] guidance from the Food and Drug Administration (www.fda.gov/Drugs/Re sourcesForYou). ? Visit www.cdc.gov/drugoverd ose to learn about the risks of opioids abuse and overdose. ? If you believe you may be struggling with addiction, tell your health care p (more content not included)... Normal [facility] Influenza A&B Agon 3 Influenzae A Ag Negative Normal Negative [facility] Comment on above: Performed By: #### 2 [id number], [id number] #### [facility] [address] [place] [address] Influenzae B Ag Negative Normal Negative [facility] Comment on above: Result Comment: Test sensitivity and specificity vary for age group, specimen type, antigen types, and prevalence of disease. Test results must be evaluated in conjunction with other clinical data available to the physician. Individuals who received nasally administered Influenza A vaccine may have positive test results up to 3 days after vaccination. Performed By: #### 2 [id number], [id number] #### [facility] [address] [place] [address] Prescriptions/Work Noteson 0 09-04-2022 Prescriptions/Work Notes [id number]# 1.00CD:127 Normal [facility] Rapid COVID Antigen ([facility])on 09-04-2022 Rapid COV Int NEG Ctl Pass Normal [facility] Comment on above: Performed By: #### 2 [id number], [id number] ####[facility] [address] [place] [address] Rapid COV Int POS Ctl Pass Normal [facility] Comment on above: Performed By: #### 2 [id number], [id number] ####[facility] [address] [place] [address] SARS-CoV+SARS-CoV-2 (COVID-19) Ag IA.rapid Ql (Resp) Not detected Normal Not Detected [facility] Comment on above: Result Comment: The General Compression Veritor? System for Rapid Detection of SARS-CoV-2 is [...] in patient care settings operating under a [place] Certificate of Waiver, Certificate of Compliance, or Certificate of Accreditation. This test has been authorized only for the detection of proteins from SARS-CoV-2, not for any other viruses or pathogens; and, in the [facility], this test is only authorized for the duration of the declaration that circumstances exist justifying the authorization of emergency use of in vitro diagnostics for detection and/or diagnosis of the virus that causes COVID-19 under Section 564(b)(1) of the Act, 21 U.S.C. ? 360bbb-3(b)(1), unless the authorization is terminated or revoked sooner. Performed By: #### 2 [id number], [id number] ####[place] [address] ADMITTED TO INTENSIVE CARE UNIT FOR CONDITION OF INTEREST:FIND:PT: NO Normal [facility] Comment on above: Performed By: #### 2 [id number], [id number] ####[place] [address] EMPLOYED IN A HEALTHCARE SETTING:FIND:PT: NO Normal [facility] Comment on above: Performed By: #### 2 [id number], [id number] ####[place] [address] FIRST TEST FOR CONDITION OF INTEREST:FIND:PT: Unknown Normal [facility] Comment on above: Performed By: #### 2 [id number], [id number] ####[place] [address] HAS SYMPTOMS RELATED TO CONDITION OF INTEREST:FIND:PT: YES Normal [facility] Comment on above: Performed By: #### 2 [id number], [id number] ####[place] [address] HOSPITALIZED FOR CONDITION OF INTEREST:FIND:PT: NO Normal [facility] Comment on above: Performed By: #### 2 [id number], [id number] ####[place] [address] STATUS:FIND:PT: Unknown Normal [facility] Comment on above: Performed By: #### 2 [id number], [id number] ####[facility] [place] [address] RESIDES IN A [facility] CARE SETTING:FIND:PT: NO Normal [facility] Comment on above: Performed By: #### 2 [id number], [id number] ####[facility] [place] [address] Coding Summary.on 07-28-2022 Coding Summary. CD:[id number]:[id number] G h0bWw+PGhlYWQ+UZ7UZRI iA38irWPouO4YK7gAMY0J UGMHOCQRJG8XXI9apUW1M QftY2RhdmAo QpykpJAdIE00FBh0IAE6h VueAFbfdX6jzYBlK6x9Gf SwHO66vH27SSwfAZZtSaK 3LjZpbjsgbWFy E8zjBgRlvHZpOfa+PHRhY mxlIHdpZHRoPScxMDAlJy RwpWqaGU4iEw1uFNNdQSS vbGxhcHNlOiBj a6kxJVFwHXrlWJ6uaGggI 6FtzAH5PGNfa1g4Zo85yJ I+IEMvBVT3wPmqWTrth10 1PfRui6ilWRS7 iZKxCEmyDPI5R70bi2V5T NKbNSBeXHZ5hVD5eK9hsO rrqlrpR1XcgCFeXqY0HPX 5nLRdvV0wkWxx yhcezT4zCyn+P65FRE3NV TMRCT1MLvg0I3VvVyzvrG I+XR94IQOiAT73pPKreTK lo5kxtNl1TiFz HEJdRBX2hXvdTKtkc6FuP NViT00stJRns0R9YYIqwG eixWNqRmCpgDE4tN7iAAb pgduct5uouzwa Nbosj1geae49zG99U76eV SvwMRQfWZK3JBIzMKPpsV dtbc6lhX3rWr2+KNgzk0q qf5gzzXz1GzWb HVUpkcJdfAgeHBF4e8MkF c83E8EdtEeuk2BwMon2vw 91zMKam2I4zSC9AUbpTAZ dpV3aSTduNyH1 SZRyUuYgcR34wNJbZEvmC f9guAuteXpvDP4eIZOozc wtERYrmR5nDKSbfXWojCe aHT9wOZLvmrrq k278ZgLeHNT8FXZnaJDaH 1UqiW0dRqWoKCKvQTHbQ9 SxtTQmRPihT474STrgBoK 5GOIaftBbV9Yc RRWmoOfoVzP9q6W2Jt7Xg 1RktmtrYPK9URaaYIRtXa T4TaGtAyJ2I6JfLfd7XTW sqBmkNX9oO0Cp LSFfouiwwiajaWD3CRRaI HMefN76uQGmQQzpXv0qh4 G9t633TDOiZLYrlU08Mu0 udDogMTBwdCBU iI6fqfzam0vemuzbBwHaS ARaISr0KHv3KIPjeWgzQs TpOJC1VcZ2MUL8oDUciX5 ywKocexokfE1k Oyc+D74vbP2zJHZ1DXA8x fzsJBXfgzTtBI06RH33X4 RyPjwvdGFibGU+PGRpdiB ivZxdGM1xOaEx n3xdf9ZaMRppQ0NoKIVpI KazXjv5OZVgHLO7bGK6zU 2hJHGwNLpwt2W0oKY4Z6Z vanEprw1at9ef GYRhUVjdN20qvUAlb2O4Z QFizYV2AKHyaZbtCrSjjM 93Oyc+BUAfzQtvz3DpOto bn1ixh0mlhWh6 YcTtCAEzflAixHjgVFC0o 7AdCs76V08cFAiqGHSoMT UfEXZjDTTuxJqlgu2ymU5 wIi8+PGNvbCB3 sTI9uO0kZCVcJlH3OBajW 539SmWgcHTlWmtuh0ald5 lelFb6ZbVeHWSsdnMbhHw tRHW3p6VyAi33 X82fGQoaHTRaUHYwIIVeV FAcqCcqsl5tpL9kNe5+PC 0oa1dpvu24jC63mYZ+PHR lNNE3kDqkBXnj HPVivL6sGRopNuQ3WFJaN kTkwI66rBHgHXxwXo7lbQ yxzVndHL5dBALklzvel56 3YbEkd2nuQGXp qULoZZfnUIB6A68ts4J8H KHuYKEgUVY8eAT0aQ8pyK lnbjogbGVmdDsgdmVydGl zWYnyDOedG600 IHRvcDsnPlBhdGllbnQgT iMgUYm9J6ZmYrc8SCOmnL crIH3lzHSvBKkkRl8luDr etLfgVQ2lLWSg mbpox272ZfZun6nyLBIav USzJAxjEMY9K99ks6K0HL ViIPEvZZS6fKM4dQ5vvFn nbjogbGVmdDsg sgZkiJriEDwhWRvtZ203K HRvcDsnPkJpcnRoIERhdG B0DX52AD65lFZgs6U3bWG 4O2VcLHNoxvzw nllxjTR0ZHSbYDAmnV74A q9xvOvlRo7eQCIgDHM8NI UqzIKvF4JtnK6qLzGkZKB iNAVdO0GihTMr LJooG437GEwwRdR6MZXty gCiD5RcACEdrChdMtQ6o3 H5Ls8LT4Y2ES37CM26gBG do7T5zJS7G2Et TLGewszfbxscxKG7UDUaD WSqcI04Wr2vtVlzZv0fCR TfWQB8OXReiRKhZ4JuoY6 yOiAjMDAwMDAw O7VtvGRnWWrjJ525USxpB uS2JVAofbFtH8BvSGYmaG xcWsV8g4R6Uv8ZUHb5VZ2 5ZI71vHHpb9W9 fOZ5M2MpVBAdquwrcmdrs GT5HQNuYDEdtB57Ov8pxS xtBw8hRGMwCKT6IKTceQK zF4NrwW5jUzPv TDZjRIQsA3HmdIZmMVkcM 864BLkgCxP9YVUgrcCrZ9 OpYCYffVihUoB9g8S1Vp1 ZATXtNL42WGI5 qKJ1JD67AU22C8TeQpuje GFibGU+PHRhYmxlIHdpZH RoPScxMDAlJyBzdHlsZT0 lOu4gNCTiXRQu cQkvkVCeTsXdd1ufXRSoV QnvCW0vaRrxZ0JlePM7PQ Rzv0k8Rn21T47wP9PefKU +XFXurQN0lOC2 pD2fPnVbNgY1DRdcS546J eOwuOAmBylwx6wuz0apeT d6BoG4MONaumLxkGckWLA 6b9EeBm88S00w IHdpZHRoPSIxNSUiIHZhb Jjxzv8iwR1jFa7+PGNvbC A7gVT7gB9iAtDvAzG9JLc wX211SvUuvBTi Yvcfy6lmt8idqFm0FvHgS JAmycNbmXiuAIV0x2AaPl 27V8ZdxKrha9SyExu3eq4 1qJKdf0A3yFO2 E6KdETDafsudwCFjhLkyQ H1iZIFcrjgaJATzzM0oIK NmE6h6GvWiDhG8WImxO5U mpcI6MPOsfHDv CWyxKDN4A18ne4E4TTQjA JGhRTB7wOO1nB1niBstqw ogbGVmdDsgdmVydGljYWw wKOumW344UOUv kAtmVLRikZ4wWSFnpPTii CwpXX2tPUHkzlwzOlXRBA IILOigXGAPJ1VQGZmKHKV gRzwvdGQ+PHRk CUU7rRswIOtuJOSqcZ5wH BZdQ1a1PvOkMgL3DBjoI1 FvJTPspzesBj14pX5eYtP oGhV9REulO1Yl gsC9SOMmxIKnJEzqMXC1W 94ki8E1AGSpFMEsTAZ3hY W5aQ8jkNosptjlqGHugPs gdmVydGljYWwt MTthH331VEZbnTqpOlPtH rT0PhU8LTM2J5WnQrf0PA QlhEyoUC7ufXIkLOgrXr4 cmDdmeQqeKL8s RVIvyujmBJEazX3iFNUrk YCigMkqAK4jWXHsuposq3 18AkOlMIH2NANqoNQyS3A wuJ8xTiQpFVBd SUCuA0IsoDRiWGknH288H ThmIoF2QQWuftSnR2UfYI ArkIccEhN3y3Q5Ib7jEsJ ZZWFyczwvdGQ+ MDIeITX0zZsnDHcyPXEvy T2dNJEeM9c9KeWbVvK6EL ewF8MoENCfjrtgRz11mV1 cYgRnDfY8IGkb R7EpfkE9CPJdgYTrDWseG ND6C28sm0A2ZBIhJLZvUF G1nCI1zQ5kyLgxtaivpXE mdDsgdmVydGlj EYzaLHwkE825OZPjmLvnT kZlbWFsZTwvdGQ+PHRkIH A0rAmcDOzaITGjiO8hILP fC8b4YzWnSqM5 RUrxD2QfRBUukaluYh15x O8fQvCuNuY6LAdjZ9Yixi D6GUOxhITpCRntSYT1B30 qf4I3IIYqVBYs KEU3xSE8wU8ulQozfsmrj GVmdDsgdmVydGljYWwtYW prT124VRNziPhuDvJjDPK fDG3gkPvecFY+ VH61ua62V0RaHabkWil3Z VZvQIE7yUP9vK6gXMZuJI uhx3A5bNE8W7CjceTcyi4 pl3ljVSXnZWgt S35oxXQvf3I4GNOjpYJ2Z FAmeGuqLtHaiB29Gyq+PG ZepJlru7DcEfurt2zjl2v pxBo8NwRhFSWv ldWycThpCIS8h9MqUv23J 29sIHdpZHRoPSIzMCUiIH DcpYvdob7lkG4lJg4+PGN ohTP9aAK7cJ7b JrXlWiG0MQmxF152NlMnk WBdHssue9rfv1bhnVe2Si QvTLKtzgMwgSebFKN8v3R lOp76H1XfpEyx y4VuOvt7dr54uNIna3W0e GL4I7QvWOMsfcygqOFhdS jrWM9hEJBailmpXDNksA9 tHSTxJ6y3RaNn QmI6XFspY5XiuwC3KGRuk XIlDAJeaMAQjP9mwmvpz4 skooegXwVaHSCoJVb3FBh 0LWFsaWduOiBs NKO6LeZ9OHP9cMXpcT6ze MiqpwfoyS9zMpv+UGh5c2 qnvHEsIY6aqCO9KC80YZ2 7eBMhp1L5kYZ7 H9XrYHDlznjeeaweyVX9I YVvUAFtwZ86Mi7eiAumTr 2iXMWdLCS3DYQuwVXmU8E oaY6oMlEaPLVk XFGjE9PtpVGmNArvX512U IraTfN6BTBqmsRpH8GlMA LzgPjvWjR0h3O7Iw1LAQ8 1IS19GJ25vNUi d2L3kFY7X2XhMMVpxmgst gtiqUX7AEGfGQMxiQ24Lg 0gdZeiOc3sCSBpTTB6ZZQ mxYJtL4OrsA0l RxVkBLTkRSQqQ5RxfIHwK EcfT953VYtaHjC0RPWpgs EjZ4OuWZJnvCxrObA4h3K 0Yl2TZi96MC02 NU88zTQcg6O5oUQ5H0JbG VIhekhkjsftkRW6MFQrBF ZcuO33Zy9ddXxxTi7rZGF xDCO9OLPyiDOq Q5RcaR6eCmYeIRUwQRXpI 3SxkUXkLMrzI689BVarDr N8EHJimoJyZ7ZsYBDsdSz iEfS8e6W9Uo1R OFqsxkn9J9HkHonmfIP+P U86EEHeDZ09zVTyeNSel2 snaZg5QtRcZHNtGYI5rXk kTMofb6EmIOAo Y29s (more content not included)... Normal [facility] ED Note-Physicianon 07-28-19 ED Note-Physician Basic Information [...] My Ultrasound interpretation: [] Decision rules/scores evaluated: [place] ankle rule, cannot rule out based on [...] active prescription medications Follow-up With When Contact [facility] In 3 days 07/30/2022 EST [address] [place] [address]- Business (1) Additional Instructions: Patient Education Elastic Bandage and RICE Therapy Ankle Sprain Attestation Patient seen and evaluated by the physician circulation assistant. Attending physician was present in the emergency department and supervised care. This visit was performed by both the physician and an APC. I performed all aspects of the MDM as documented. This report was transcribed using voice recognition software. Every effort was made to ensure accuracy, however, inadvertently computerized land sales agent mistakes may be present. Appropriate healthcare PPE [...] 1 tab(s (more content not included)... Normal [facility] Comment on above: Result Comment: Elec tronically Signed By: Juan Ott PA-C\.br\Date and Time Signed: 07/27/22 12:06 EST\.br\Electronically Co-Signed By: Saúl Gaspar MD\.br\Date and Time Co-Signed: 07/28/22 07:23 EST Consent for Treatmenton 07-10 Consent for Treatment [id number]:127 Normal [facility] Discharge Instructionson Discharge Instructions [id number]:127 Normal [facility] ED Clinical Summaryon 2022 ED Clinical Summary [address] [address] ED Clinical Summary Person Information Name: RJ ELENA [facility] Age: 32 Years : 1990 Sex: Female Language: Peruvian PCP: Mark Pitts DO Marital Status: Single Phone: [phone] Visit Id: Visit Reason: Ankle pain-swelling; RIGHT [...] 07/27/2022 11:34:49 07/27/2022 11:34:49 07/27/2022 11:34:49 AD[address]ESS: [address] [place] [facility] [phone] PHYS DOC NOTES: MEDICAL INFORMATION: Prescriptions Given: [...] Ankle Sprain Follow up: With: Address: When: [place] [phone] Business (1) In 3 days 07/30/2022 DIAGNOSIS: Ankle sprain Normal [facility] ED Patient Education Noteon 07-27-2022 ED Patient [...] your activities and whether you should start tycqz-wd-qkpeai exercises for your injury. Ice Ice your [...] 12/16/2002 Document Revised: 03/16/2018 Document Reviewed: 03/16/2018 [employer] Patient Education ? 2019 [employer]. Ankle Sprain An ankle sprain is a [...] the cau (more content not included)... Normal [facility] ED Patient Summaryon 023 ED Patient Summary [place] [phone] Patient Discharge Instructions Person Information Name: RJ ELENA Age: 32 Years Arrival Date: 07/27/2022 10:09:44 Discharge Diagnosis: Ankle sprain Primary Care Physician: Mark Pitts DO Provider Information Primary Provider: [employer] Officer:Juan Ott PA-C The exam and treatment you received in the Emergency Department were for an urgent problem and are not intended as complete care. It is important that you follow up with a doctor, nurse practitioner, or physician?s circulation assistant for ongoing care. If your symptoms become worse or you do not improve as expected and you are unable to reach your usual health care provider, you should return to the Emergency Department. We are available 24 hours a day. RJ ELENA has been given the following list of patient education materials, prescriptions and follow-up instructions: Follow-up Instructions: With: Address: When: Mark [facility] [address] [place] [address] Business (1) In 3 days 07/30/2022 In the event that this physician does not participate in your insurance network, please consult with your insurance company to find a nearby participating provider. Patient Education Materials: Elastic Bandage and RICE Therapy; Ankle Sprain A MESSAGE TO ALL PATIENTS REGARDING OPIOIDS PRESCRIPTION OPIOIDS: WHAT YOU NEED TO KNOW Prescription opioids can be used to help relieve wdtykiox-hj-sbuwbq pain and are often prescribed following a [...] guidance from the Food and Drug Administration (www.fda.gov/Drugs/Re sourcesForYou). ? Visit www.cdc.gov/drugoverd ose to learn about the risks of opioids abuse and overdose. ? If you believe you may be struggling with addiction, tell your health director of critical care and ask for guidance or call [facility] National Helpline at [phone]-MRWL. v Source: (more content not included)... Normal [facility] Prescriptions/Work Noteson 0 07-27-2022 Prescriptions/Work Notes [id number] .[id number]:127 Normal [facility] XR Ankle 3+ Views Righton XR Ankle [...] (Electronic Signature): 07/27/2022 10:59 am Signed by: Amol Venegas MD, V. Transcribed by: ESTEVAN Technologist: CHARLOTTE Normal [facility] Coding Summary.on 04-18-2022 Coding Summary. CD:[id number] G h0bWw+PGhlYWQ+DN0XSLH pE02mxRDmuG1IJ5gDIO2O CWWSKSORKI8OSQ3wgEY2E OmyX6RphaFx MhhlyRLgNN91PEg5NBN2t PgfSNpyoY4anVIyC8a5Ui YuDN26hE07IWixQVFgNdY 3LjZpbjsgbWFy N5meAeTiwWLqMri+PHRhY mxlIHdpZHRoPScxMDAlJy BijJqqTH2uWu6qRHNxJVA vbGxhcHNlOiBj l7bxVUHzFJgwEV4dzDfpY 8UjpKL2TMKsd7t7Rq74lK I+MOCwNRY3uZrlDRneb70 3IkExh5ljULM6 wNOnANinRBL7Q22lt2V9G HJmMPUkWIU0eVG2pU2giQ ertikjX8KyaUVyQrV9QEP 6iMPwuH3esOeh vsvgwX7dYzr+A02ZBW4QG IDSHW8BUvc3J8EtExxooM I+FN96IEJfMZ78tZEuiQD ug3tyeKm9WtEi HQZnHLU1aOeoKVxnr5FnO ZDuX43yfSCve1L0ZSNsyS myaXStVuMizCH5wC7aDTl itfbrg6giyzdp Axrvo0utxe01uD24N20kR XetIJAeIEJ2GEVqIPKkkD ozqp2kvO4gYl5+UYezw1t dw6bqsDt4GvLy OOCaaqNxhOwuMGN3d7YoR m32A5VodDcud1XzIxb6km 51zXLew2M5mMR9KLhwAYN pnL3gCMegOxW7 HNEtJiYvzF58yUDgASaaE s1ubIqgjYcsBD1tCFZkej tbEJOyyI7lVWKupSNfeUa pHA2wFTQwpzae m553LxRoKGJ1WYWcpEVmV 6ZyyT8gHiMfNBYqUANrU4 IaiBDrECskK064TYouYeP 1MWFffaXoV1Qw ZPCfoVsdEzV1l8K6Wc8Ou 6DyfmfgSVJ2QTupKMFkKm KoPuCvFeY6R8OtFja3HRN alLcvFR9fW4Ar HHZahzwcbdvegHU5JJYbT GTuuR52jVEqHQpvHq8tg8 F3p329NJCzRLOfxJ49Ws0 udDogMTBwdCBU uH9euwgmf0hwvaezBaUgG MMyMEi4HDt4POCipZlbKv TaKAB5WfP6ALG3fDMraK5 hxLtepgictN0b Oyc+H46hoQ0uYKX6ENR4r vawUCYwftDjPX38YL29P4 RyPjwvdGFibGU+PGRpdiB uaSrzLN1eHkRm y0fxz2YdATplA9CsHZRzH HqoDsa3VFXtXFX7hRD1mI 6hMEUwAJtuh8H0cRV5F9Z qkvVlhu2nn0fl IOXdUSfbA95aaAMhc8U2P YAveZP0HFAorExvMnSlnW 93Oyc+CVTdmSwvf9BwQur lx5hev3eesSs1 AuBvWFXfftYsnIpcBZL6w 0BfSs17X74lKVzsAUHfBI RvWYQbMCIkfYyxyl5qgK3 wIi8+PGNvbCB3 iLW2aR7zHICdIqV4NTrxG 455DwPvhUMqKthtj7pkr3 babMn9TuYlTMNjtjJgvJo jTAB7z3HfKv76 L28kTWejUDFeIIDhGXEsU IFpmPrfks3gtQ3aCb8+PC 6ss4jzru95qG18pFV+PHR yBOF7wExyMJrt KCPvwF6hXAylBjS9RBSsG cAfaU97xAHhUZgbXk6pgY wxhZqqLM9vVQPvjkvgu87 3OdYyz0epLPXi mYBbZDxxXUE6W46wk5B3I IAwPKGvASZ3wDH9lS3qgT lnbjogbGVmdDsgdmVydGl dKXdjOSbpY464 IHRvcDsnPlBhdGllbnQgT iJkHSs9N0FtHvv8KCRraI tgFY3faXSiQIliTj3adMr qrDnvVF5hRYNt aohnc505VfQao6ptMJLtc MFlCOxgPTK7Y08vg8K6LD DlYGSmVOD7oVV1pI8gdNk nbjogbGVmdDsg viBzjAtzHBstCNjvW756I HRvcDsnPkJpcnRoIERhdG F3EW84YJ39mDFvw1L1cSY 3G4ZrZQMuoiyp pbffkWI3NCAuYQHyjQ86Y k4wyEpmQf0sWZMaZXX0MY CpaDLpE9GvhU2zSsAqFFA rAZAhH2JvzPNe FEujJ543USzhMuL5ZLYuy kUdO4GtOFQroBtyXuA3h7 R3Az8OL3C9ZR07TX86xYV of7H9bVX2V3Fh IUAkalfclotdpMT8HFSdK KIowK56Ok2fiKvxCo5xGS YrRUD5QBEywEBwF4YblM1 yOiAjMDAwMDAw B3PopZHvAEoaK408XTerW aG9ETHzceHxM2XvCVEsxU ehEaM2v2J5Cj2OMQn0LF6 6SY57zPBya7P7 pIQ2P4TlCGIemrszvbvco LK8CGTaUBXhbB95Fm5joU hhMu3zLCGcKKG8KJZxqPF fC0HdtD8tKxLg LAYyRRWfE4ChxYQyNVziQ 349GJpdPuV5CLTbnvYqV6 LzNEUncAgmTrZ7y0L5Ks9 MHFJmXB77CLX8 gUE5WO03VY22O8NjCsett GFibGU+PHRhYmxlIHdpZH RoPScxMDAlJyBzdHlsZT0 gXd3pAIDpMSAy yHkkpRAaLxUej1agDBUpS JolRP6wtJpiH4CivJX4YU Xar8x7Te82M20cI7IlxVC +FDDutYS0yJM9 pS0eTtYoXcK8ZJovI052A eYnfNAoHmcgz9xid9eqfW c5TkF4RMRsadOvtQlxPWW 5e7NwYq73E10l IHdpZHRoPSIxNSUiIHZhb Qozbj0fvM3uSn1+PGNvbC A6fTL3cU0dAaQnUmX0WHu uU138BpBunERr Qqskx7anb0xsvVu5EnAjE FUirdWlgFlkFPC5c2AlMu 90H0ZtvRvzf9XlFoe9gg1 2vWAgc2C0zMZ4 B3RvRGYqsxcehKVvyEmnR W5cLMYrivudUYPgdC9wVT TrG1p8YsQqSbK5NBqoJ2X dmzJ3ISLutQBm RBuqEOT7Y39tt9S5XXYnR RDlPCK8iWI2xL8xsFjfqj ogbGVmdDsgdmVydGljYWw kSBrgV177PNZb bBjbFUYlcE0lEGXqyKMxl AitUP5aFPDyixlzRzLIYW IVEJgsOPXVA2WGHOqAOWD gRzwvdGQ+PHRk ZXV0yJpoJFawAAKfvT8lB PMxE4e3EaOgRiM7ZGsfL7 CaPRIvnaizHy79mH1yCfW hDjC1LEqdK4Px tkY1LWWteIUiBUmzFFI0Q 14xy2F2GMUqCSQjAXU8mM M3fT7wkJtvkdqcgDAkyNu gdmVydGljYWwt UGolV376EGNucYncJwYhR lC5BsK2XCG9U5WyXvs5OI YxxQztFR9htLHiWHygKm2 jbTfpjCdaQQ1u RABvkricWDUsyX0zCDQqw EOwgLmcDG8vBEGfrtjez4 51JyZeIEJ2VIYtfBPfG9X ghG6mXaBvXMAd HWRmO8NhwQDzKRydA805I HtqTlD7WKHhyeVjJ0DyUG EjuTrpIrK4h7H6Hc0dBpC ZZWFyczwvdGQ+ JTCuGBT6qIehSZxuHUIon A8yTCZyS3n9AcLcZkD8ON yuW2EmGPOxqmpzJa15eT5 kIeTpAtR0DGtc G1BpzuX0GHZcwWYfUTrkE XN5X46dr4U0FXBwFRBxMO Q0oWK9pA7hkQusqpcnqJA mdDsgdmVydGlj CBagVHoeR498VKCzsQmaK kZlbWFsZTwvdGQ+PHRkIH X6rZyuEXjrPGJzbN9zTYV iF4b8JbIvZtJ8 OXqyD6LfOLVxmtypKf19z G0dBrDsRpQ1WUxxT2Loqt F1AZXalTYhIXvzDWP9M81 di4H3EUOzEIBf KLG9xVQ0jN3mzLcvlbtmy GVmdDsgdmVydGljYWwtYW euW370IMGcgWtvJvYtVYI hAD4jnAfwsQT+ AF38mr68X2RfLghsRzy7J OHxZPG1eFX1vJ1xELChSN hoc6S5lCZ7O9VrrtFiea6 wz3rmQRKlYLfq P18ulTVuo9Z6QFCudAN0P TEmuFktIkDghE28Nfn+PG ZdoZxry1CdBulbs6gan0u zsJc2UaRqMZBh dbJclHzvZUI4v5ObCh52M 29sIHdpZHRoPSIzMCUiIH XuoReheu5wxK9cQh9+PGN pbJU1kIW2hC5s ZjRoJwR1YDhbS612NnLvl MNwXxcli4pun6uvcEl3Ix QeXITlgqIeqSahHIS5p0E nPg99I0QnjZni t3AnAew2gq88wBGja4H7d ZX8O7YoTJJabwdamHShuM vyJV8eTVDbvpcsVYZvjD8 uPEVsU4k4AlKl YlL0JGqfJ1XynqI5VRXsm XGuQEUgdTOZmS0wffaiu4 dzjnczRjHmUOAcUIg0IXn 0LWFsaWduOiBs ZPA5DfJ4TWC4iJHuqW3bt RuqcntoyC2vHer+UGh5c2 vebCQzAQ3ohUF1WI83YE5 6fMFaf1B3cYZ0 C3CtNCAcxlwvuaigjAV6M OHwJUFdpH02Es6duSyxPi 5tEUDfWLI7HYDmoJThA6X ggG5eIoHfLRIm CSIzX1FzaIPxXNloH258S GeyJqV6YLZslfCxA3WoQQ HnrOltYiK8y7F2Ys2QLR1 0BY76IO69mTOi e1B3vES2S1WvPPOegrxqg cwxfDM9IMIbYLSjhA35Rx 6vnVokHi8zQLRyUBL5PFC gxQSsA5OplY4m PxAmWAUpYHKcA9LixSLvR GedG940GGblHvB6NJLnnq OrR6FfHOVviTanMeU1q0C 9Ox3PCr40TL00 IL39tQAet3T6lAO7W9WzN CJzmjfrdjwhyVM7AYFwVG NknE13Oi8ajJnbXb1mZOJ cCDS6BCMyaFMc W0GksO6wCeGqMXEfWLLeD 5MuyEQySUoaZ899FYdzBq O7BGTcstVyX4FpFHCwkVs oWsX4a3K0Lq3B FPmdesj1A4RxRrftfDF+P C66IUQkNC30lWAcaRWdj7 komDq0XsHzMUUdQAX5sBq hCUoqn5VaLDTb Y29s (more content not included)... Normal [facility] Coding Summary. CD:[id number] G h0bWw+PGhlYWQ+RS8APNZ lX75ljRMoeP8WW9sSXT7Z BVCGDSWLFR9TPS1blZV5X VztX0AmwsJt MvhzpVTnUC19HPo2CFG2i AakDVrehM8mnMVoN3e2Dr PzLJ94jM81ANugNPBdXvK 3LjZpbjsgbWFy L1naYyQlgVCxCat+PHRhY mxlIHdpZHRoPScxMDAlJy DrfVthZS0xDz3tQCEaMYD vbGxhcHNlOiBj q7skXJKnCDesRU5qlZtyL 8DmtXT4HKRyl3g9Ir74gK I+GLGkWRB3iYidKUvvx67 9CkIgm2ocZHD8 wTAdVPepEQN5K23wt8J4P UFaNCPiXRR9zGH1bK1zcS jshbfjJ3NekSPuZiA4EIC 7cXUtyE6htFiz uaiqhI0tNvr+C01XAG8XM PWAFX2MWsm2Z2SsVoketM I+IB13MIYqWO37kGPleME mn0oszTc7DjNf QEHiIOH8lWgbKIckk5WgV XVyZ50qwOXwm7W1FONypB bouCJaTpPwaNL5aB0yJYy dfjfmt1bfnfyb Dizps6ovmk73jE76K38xY QdeZRGpZDG5MNNxARYnvG ekuf3jqM5uMk5+GAinf9a wy3ifzHh4UlPv OLGwobBkyDxqFYA5c1HaL q40M4UjrUeqv4ZqDib6qv 60uWTff9Y6iBJ1CVxaEKA avV4yAPwgNfI7 JTVeHkPjsK33jBTxWKwdF u0jnWouuEanUZ1gXRHcii ihBLPtqP5cKUDaxOHnmBt zFN1nIRTenzul j080QjPtRNX7ALDxdJVgH 4XbwP6iHuRnKVMkCWFxP5 NtlOHgDUbeF111UQlfAwB 0ZAOuumLxV4Aq LNObsQrgYbZ3w4K8Zc3Wt 0KtmmgrPPK8LAawXFOcJw VyNtBrYbR6Z4MoMie1WXW gfPrvGF6nD2Ga QQLwwxyjuwiixRL1ZTNiT JTsuA56wPLxKQfnXm1bz0 B0r260XHRiHBWsrW23Re1 udDogMTBwdCBU gM4pwugld9qflapoVwMxC IZxPAn5ORo2AWVeiJxoAh LmQME6FkK8AVC7jTIjlU7 nrBlghbpkaD4j Oyc+X62leQ3tCGY9BXQ1n lvvOVKnzdJpGP98DB93A2 RyPjwvdGFibGU+PGRpdiB ptRygQZ3fVtZv q6axo5BoYAllG2YxSRUuJ CtiDvk1ILPbHMT5tVE0qB 0fPZRmUYtbu9D7fVY8F5U kcdZlqu9zr3lp OXSbKMqkW91chQTbd9M5W ANaxWI2ZLUvgTqoZwLrbX 93Oyc+ZJLbyYmbs2YuYst ud1eni2dcmWk7 CfCwVGMvkyWutRlkYBJ7t 4FiKr97B06oUJzlPHGlKA IxGAGwALYydOhsay2rzE5 wIi8+PGNvbCB3 zHX5oV2jFHLgElE0XNogD 825QzMbrJDcEktyr6cmu0 eclWv8ImMsJYPcbmMfdFa sXTZ4y7TwRs72 U75fQApsCNQxWRGaVORvH IJwnDucwb7vmW1rFn3+PC 8gj5vhbu39gV27lCY+PHR xPYO5aNyrJIxv OMHfeS6qWVzmYzI7HUUxB dHpqH17gJRaMBubKc7mpO dyxRljGU5eNPPpfvixr63 5UeZec4sgDECy tKAuPFohKDU7O15yh5A3S ZWlPTCrKKW2lVM5tD3jgQ lnbjogbGVmdDsgdmVydGl gXUfoGCxjG716 IHRvcDsnPlBhdGllbnQgT tEiWAu6W9ZpWio3DSKytQ wiFW2zjLGpUEehVo1btJt hgIsaFR7uUYMj rwxgm126BvRha0maTRNjl WEzQJlwKAI5O41kk9A3XB WwJHTzZXC2jQJ5eX4ozOv nbjogbGVmdDsg cgOyfHqqZMvrVAifW984K HRvcDsnPkJpcnRoIERhdG F6SJ30YC55qWIlb4F3yAO 8Q9UtTQZnjwqm pyqwuND1YCJxYDHjzE11M q1gxXjlRp6bTWDfVAE0OL XlfJIcK0NlgA6lUqAbPXV gEAWpE2LaiGSe EVvkJ883GStoUlV2MUMnd uKdC5LtZVVnoPtqHtS5k2 C8Rt7MF4M0HZ36ZS59wUL oa6U9dJB4T4Ze ISXqqwyuihtstPA3AQOtQ PHuwG32Np1sxVpvBk6wBC CiFOT3BBHmsHFyW4UotM6 yOiAjMDAwMDAw Z7LfiXSyBXbnQ196AGgrE bU0UNPfkhJnF3FyPDVpsQ qpDeR6o6T5Iu7GWVu6VJ0 8ZH86hNJyx2I7 oZV0U4LaXHEvufgczrqhn RA4UXMzRIOavA42Ly7jaN boLs3lIYPeEJC5RHXevIZ hN4QfgR7uPyLe GQSbFGYxG0JfqUZeNBazQ 331FBkcRqJ1PLLulaZqX3 LeSETgpAcjArE4m4Y6Rb8 VJYHuNO46MCS7 nUH3LV92KD51T3GeNkyds GFibGU+PHRhYmxlIHdpZH RoPScxMDAlJyBzdHlsZT0 zNe2yBYTqQLRw jWbatXLxIrIcd6zjKHBoN XjvXP2zkVxwN1XasTI5YB Ksw2i2Sk60Z33eY5GxaFH +OFXumOI0xRF7 qW7qReShCnA0WVxyO792V yVfhCQiCukfs6oca8ukhV m4LtY9BZNiusVngDptMKA 2j8TdKj36O08i IHdpZHRoPSIxNSUiIHZhb Xjlap0bbV6bZs7+PGNvbC B5qTN2oO5zOkKeEbE6CAs bD031ZdVryBPl Hudpx7hhk7rftBh7FkXoX GGrplGfaSopLFI9p1BjQa 89Z8UhiIfkp6QzAjz4ex2 1lPWmo3P9vNC5 W7YxWZWcihgycFZsiXyvH U3aVZRawozjJDWewR8uPP OxI9k0WsCwHeC3OYzzU3G vauV6TKWisQLh EUagAOJ5Y10pc5H6HAHwN HFiBSL9iYN7xF7zvAvzae ogbGVmdDsgdmVydGljYWw kAVrbP805FMLq mIuqJTLfuY6qAYHhmTOzq XyvVT3hCMDhqkdeSeGFSA SANHykKDKAF3OYAXpUXKD gRzwvdGQ+PHRk FLO6sZvaBGtvXFFzjO6oT LOwB1u6GcOqRyS3DWimW4 MsBWSlwmjwNo29gL9dRfK iHwT6XBgfC0Lp ooG0RCPliHNqKHewQWI2K 71bn6V1FYOfEYSeQSL2lH W7cD1vbQveivgsdCSkeCc gdmVydGljYWwt TYkgH832QPRbyCdqPpViW rQ7VlM5TYP9R1RoGtk7KW EssEitWL6ngAGgAObwAb2 sfLymhBceCN9c QOEkkbdtWWJhgT7vSLBgm LJfxCsqXA4zFJVzzuxwo1 94JtMnZMO0HSYzkCLyN1H fdJ8mIfZzSEBu YWBxX2AxsEVyDXtvP027P ZcoJkX5ABVmhqNgM2YuCH AibYvjXiD9q0X9Ge7mAgO ZZWFyczwvdGQ+ TYEpKDA0uDpqONhqNRHel T6qGRDhG9u3QuEcOwY4PJ jqB8VsERBgiujnSh82qL9 yLcWlJzP8UBui J7QjodI9ZKXdnQJxEVqiW VQ7Y05ih5Q4ONViIIBaFQ B3kLD7mA6xmDdryrzpsDI mdDsgdmVydGlj TBneTGclG726HUBikJgyP kZlbWFsZTwvdGQ+PHRkIH R2aNnkTMqjJFQcqY2fDPZ mH2w7AlFyClZ0 SNzfL1WuPUFesmcuXw71n E9wVhNcOsP4IEkzG8Wzek U6NOMosJXhGYyoJEM3R16 lj6G9ARXsEPBz PTF1kSC9pL0abVirkbzkt GVmdDsgdmVydGljYWwtYW gyL710VBPnpQzcDrKgOJW sNM2eaGznyYV+ BB41fu29M2ZnBxfcDsw9N THlXKM5sJI9rH8hVSSqIP zcw0D0pCZ7E2HjhcBefs7 sh4csBERtNAcv F23yvHPdg6B8IVGwkWE2D OThrAljWhPhhH04Lna+PG MgqKmol8XzPfwov6usm9o mrIe6XyImICAi vgCmlWysTQH9k9HsVn80I 29sIHdpZHRoPSIzMCUiIH KpdDahnv6fqD0yGm2+PGN reZD5fOB9eL8g XtLqAvU0HUlyL227TlKuc BTkDyfax5ghy7ahnIt2Jg RkKSAdbzHleZzvBBE3z8L aJy01O1RimAvu m5LtOzk6ex17jLDhl7A5i YY0D5XuLDGjdqgngVLecY srQZ4yMTNkmhozQHGdyV6 bFLKgJ1n2QzDs MfN7OTtzV9LfbfU0DRNpd BXsLMCkvNOYuU5mhyueo2 kugfurKyOzEIHdVCr6PPh 0LWFsaWduOiBs AFG5TaZ3BGU2bIYhyK4wh DdkqexayR3pJit+UGh5c2 brqTYqRI7nvML0XB42PU5 8mZQvh9K7uMY2 S2JkZVEdifzwjpgziBV6N RTjPGEdnR65Ie5tzNurBs 8yNLGqSTU3QLFrgYWuL4E gjK1zEmGvFTZo PHDfE3VvrUExYCydY252I SamSsO6GQJamsBoS3BvZG XdxUqyDkS9c9O5Um3RQI7 2TA17RZ87uLGi q2E1nSK5S8IdRZHmcscyr sjbxOX9HUYxMLCqsD31Zd 7wmIvdRv1cCOUcUTS0SEL dbQRdU3MwhL0a XxHpAPUjMHNxG1LctWWmW TwqX796VBkhVhM3ALIhqt PxP2MjPOSzeJksQlN4y4L 5Hi7AOd68CG56 IO60pGBdj7J1fOM0J2AwR LAdvdijpthctGH7FNJrZP TcwN01Rt3kvSovGk6lDHS cDGD4YGGfuCWx W3VvrG9eHbMhZFLcKKXkP 9KomDQjCUcaI513KAofWe C4GZDabuBmD0EySDOalRl uMtD0q2P8Tx5R OBrspje8N7RsYufvvCI+P L21JTScDJ11yTGsqADin9 enfIy7VsWnUVVdWNS3rHp yQTdnb1SyYDBu Y29s (more content not included)... Normal [facility] ED Note-Physicianon 04-16-20 ED Note-Physician Basic Information Time Seen: Robinson Galvan PA-C 04/14/2022 14:53 Chief Complaint pt c/o allergic reaction to possibly motrin. pt was having swelling and redness in the face and tongue. ppt c/o sob. 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 History of Present Illness 31-year-old female comes [...] 0.3 mg, IntraMuscular famotidine 10 mg/mL IV Mrau, 20 mg, IV Push methylPREDNISolone 125 mg [...] Pitts In 3 days 04/17/2022 EDT [address] [place] [address] Business (1) Additional Instructions: Patient Education Anaphylactic Reaction, Adult Attestation Patient seen (more content not included)... Normal [facility] Comment on above: Result Comment: Elec tronically Signed By: Robinson Galvan PA-C\.br\Date and Time Signed: 04/14/22 18:33 EDT\.br\Electronically Co-Signed By: Saúl Gaspar MD\.br\Date and Time Co-Signed: 04/15/22 23:22 EDT Consent for Treatmenton Consent for Treatment [id number] .00CD:127 [facility] Discharge Instructionson Discharge Instructions [id number]# 1.00CD:127 [facility] ED Clinical Summaryon 2021 ED Clinical Summary [place] [id number] ED Clinical Summary Person Information Name: RJ ELENA Calista[facility] Age: 31 Years : 1990 Sex: Female Language: Peruvian PCP: Mark Pitts DO Marital Status: Single Phone: [phone] Visit Id: Visit Reason: Allergic reaction - [...] 04/14/2022 19:42:49 04/14/2022 19:42:49 04/14/2022 19:42:49 ADDRESS: [address] [place] [id number] [facility] DOC NOTES: MEDICAL INFORMATION: Prescriptions Given: New Medications [facility], [address] [place], [place] [id number], [phone] epinephrine (EpiPen 2-Ze 0.3 mg injectable kit) 1 Each Intramuscular As Directed. May substitute for another brand if required by insurance or inventory. Refills: 0. famotidine (Pepcid 40 mg Tab) 1 Tablets By Mouth once a day (at bedtime) for 7 Days. Refills: 0. Medications to Continue Taking That Have Changed [facility] 1985, [address] [place], [place] [id number], [phone] START: predniSONE (predniSONE 20 mg Tab) 3 [...] Reaction, Adult Follow up: With: Address: When: [address] [address] Business (1) In 3 days 04/17/2022 DIAGNOSIS: 1:Anaphylaxis Normal [facility] ED Patient Education Noteon 04-14-2022 ED Patient [...] Symptoms of anaphylaxis may include: ? 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 This may include redness. [...] have hives or rash: ? Use an qvvk-atb-nbvtcyk antihistamine as told by your health care provider. ? Apply cold, wet cloths (cold compresses) to your skin or take baths or showers in cool water. Avoid hot water. ? Take xbet-uwp-ghumtzl and prescription medicines only as told by your health care provider. ? Tell all your health care providers that you have an allergy. ? Keep all follow-up visits as told by your health care provider. This is important. How is this prevented? ? Avoid allergens that have caused an anaphylactic reaction in the past. ? When you are at a restaurant, tell your room service food server that you have an allergy. If you are not sure whether a menu item contains an ingredient that you are allergic to, ask your room service food server. Where to find more information ? [place] [employer]: aaaai.org ? [place] [employer]: healthychildren.org Get help right [...] medicine s (more content not included)... Normal [facility] ED Patient Summaryon 022 ED Patient Summary [address] [address] Patient Discharge Instructions Person Information Name: RJ ELENA Age: 31 Years Arrival Date: 04/14/2022 14:45:02 Discharge Diagnosis: 1:Anaphylaxis Primary Care Physician: Mark Pitts DO Provider Information Primary Provider: Saúl Gaspar MD Advanced Small Business Banking Officer:Robinson Galvan PA-C The exam and treatment you received in the Emergency Department were for an urgent problem and are not intended as complete care. It is important that you follow up with a doctor, nurse practitioner, or physician?s circulation assistant for ongoing care. If your symptoms become worse or you do not improve as expected and you are unable to reach your usual health care provider, you should return to the Emergency Department. We are available 24 hours a day. RJ ELENA has been given the following list of patient education materials, prescriptions and follow-up instructions: Follow-up Instructions: With: Address: When: Mark Florencia [address] [place] [id number] Business (1) In 3 days 04/17/2022 In the event that this physician does not participate in your insurance network, please consult with your insurance company to find a nearby participating provider. Patient Education Materials: Anaphylactic Reaction, Adult A MESSAGE TO ALL PATIENTS REGARDING OPIOIDS PRESCRIPTION OPIOIDS: WHAT YOU NEED TO KNOW Prescription opioids can be used to help relieve yfynecpe-ee-agbxzy pain and are often prescribed following a [...] guidance from the Food and Drug Administration (www.fda.gov/Drugs/Re sourcesForYou). ? Visit www.cdc.gov/drugoverd ose to learn about the risks of opioids abuse and overdose. ? If you believe you may be struggling with addiction, tell your health director of critical care and ask for guidance or call SAMHSA?S National Helpline at 8-070-735-HELP. v Source (more content not included)... Normal [facility] Covid-19 PCR (CVDTBH)on SARS-CoV-2 (COVID-19) RNA YARELY+probe Ql (Unsp spec) Detected Critically abnormal NOT DETECTED [facility] Comment on above: Result Comment: This test is not yet approved or cleared by the [place] FDA. When there are no FDA-approved or cleared tests available, and other criteria are met, FDA can make tests available under an emergency access mechanism called an Emergency Use Authorization (EUA). The EUA for this test is supported by the [place] of Health and Human Service's (HHS's) declaration [...] used). Performed By: #### C VDTBH #### [facility] [address] [place] [address] Dr. Tj Wild CBC AUTO DIFFon 07-05-2021 BASO # 0.0 103/ul Normal 0.0-0.1 [facility] Comment on above: Performed By: #### C BC #### [facility] [address] [place] [address] Dr. Tj Wild Basophils/100 WBC (Bld) 0.1 % Critically low 0.2-2.0 [facility] Comment on above: Performed By: #### C BC #### [facility] [address] [place] [address] Dr. Tj Wild EO # 0.0 103/ul Normal 0.0-0.7 [facility] Comment on above: Performed By: #### C BC #### [facility] [address] [place] [address] Dr. Tj Wild Eosinophils/100 WBC (Bld) 0.0 % Critically low 0.9-7.0 [facility] Comment on above: Performed By: #### C BC #### [facility] [address] [address] [address] Tj Wild Erythrocyte distribution width (RBC) [Ratio] 17.2 % Critically high 11.0-15.0 [facility] Comment on above: Performed By: #### C BC #### [facility] [address] [place] [address] Dr. Tj Wild Hematocrit (Bld) [Volume fraction] 36.3 % Normal 36.0-48.0 [facility] Comment on above: Performed By: #### C BC #### [facility] [address] [place] [address] Dr. Tj Wild Hemoglobin (Bld) [Mass/Vol] 12.3 g/dL Normal 12.0-16.0 [facility] Comment on above: Performed By: #### C BC #### [facility] [address] [place] [address] Dr. Tj Wild IG # 0.08 10e3/ul Critically high 0.00-0.03 [facility] Comment on above: Performed By: #### C BC #### [facility] [address] [place] [address] Dr. Tj Wild IG % 0.5 % Normal 0.0-0.5 [facility] Comment on above: Performed By: #### C BC #### [facility] [address] [place] [address] Dr. Tj Wild LYMPH # 2.2 103/ul Normal 1.2-3.8 [facility] Comment on above: Performed By: #### C BC #### [facility] [address] [place] [address] Dr. Tj Wild Lymphocytes/100 WBC (Bld) 13.8 % Critically low 20.5-60.0 [facility] Comment on above: Performed By: #### C BC #### [facility] [address] [place] [address] Dr. Tj Wild MANUAL DIFF REQ NO Normal [facility] Comment on above: Performed By: #### C BC #### [facility] [address] [address] [address] Tj Wild MCH (RBC) [Entitic mass] 26.6 pg Critically low 26.7-34.0 [facility] Comment on above: Performed By: #### C BC #### [facility] [address] [place] [address] Dr. Tj Wild MCHC (RBC) [Mass/Vol] 33.9 g/dL Normal 29.9-35.2 [facility] Comment on above: Performed By: #### C BC #### [facility] [address] [place] [address] Dr. Tj Wild MCV (RBC) [Entitic vol] 78.4 fL Critically low 81.0-99.0 [facility] Comment on above: Performed By: #### C BC #### [facility] [address] [place] [address] Dr. Tj Wild MONO # 0.7 103/ul Normal 0.3-0.8 [facility] Comment on above: Performed By: #### C BC #### [facility] [address] [place] [address] Dr. Tj Wild Monocytes/100 WBC (Bld) 4.6 % Normal 1.7-12.0 [facility] Comment on above: Performed By: #### C BC #### [facility] [address] [place] [address] Dr. Tj Wild NEUT # 12.9 103/ul Critically high 1.4-6.5 [facility] Comment on above: Performed By: #### C BC #### [facility] [address] [place] [address] Dr. Tj Wild Neutrophils/100 WBC (Bld) 81.0 % Critically high 43.0-75.0 [facility] Comment on above: Performed By: #### C BC #### [facility] [address] [place] [address] Dr. Tj Wild Platelet mean volume (Bld) [Entitic vol] 10.3 fL Normal 9.5-13.5 [facility] Comment on above: Performed By: #### C BC #### [facility] [address] [address] [address] Tj Wild PLT 254 103/ul Normal 150-450 [facility] Comment on above: Performed By: #### C BC #### [facility] [address] [address] [address] Tj Wild RBC 4.63 106/ul Normal 4.20-5.40 [facility] Comment on above: Performed By: #### C BC #### [facility] [address] [place] [address] Dr. Tj Wild WBC 16.0 103/ul Critically high 4.0-11.0 [facility] Comment on above: Performed By: #### C BC #### [facility] [address] [place] [address] Dr. Tj Wild [facility]10 SARS-CoV-2 (COVID-19) RNA YARELY+probe Ql (Unsp spec) Not detected Normal NOT DETECTED [facility] Comment on above: Result Comment: When diagnostic [...] for this test is supported by the [place] of Health and Human Service's declaration that [...] used). Performed By: #### C VDTBH #### [facility] [address] [place] [address] Dr. Tj Wild D-DIMERon 07-05-2021 D-DIMER 6.07 mg/L FEU Critically high 0.19-0.50 [facility] Comment on above: Performed By: #### D DIM #### [facility] [address] [place] [address] Dr. Tj Wild D-DIMER COMMENTS SEE BELOW Normal [facility] Comment on above: Result Comment: Incr [...] hospitalization. Performed By: #### D DIM #### [facility] [address] [place] [address] Dr. Tj Wild PREG HCG QUALon 07-05-2021 , QUAL Negative Normal NEGATIVE [facility] Comment on above: Performed By: #### P REG #### [facility] [address] [place] [address] Dr. Tj Wild PROF 14(COMP METB)on 021 Albumin [Mass/Vol] 3.5 g/dL Normal 3.5-5.0 [facility] Comment on above: Performed By: #### H STROPN, CMP #### [facility] [address] [place] [address] Dr. Tj Wild Albumin/Globulin [Mass ratio] 1.1 {ratio} Normal [facility] Comment on above: Performed By: #### H STROPN, CMP #### [facility] [address] [place] [address] Dr. Tj Wild ALP [Catalytic activity/Vol] 56 U/L Normal 38-126 [facility] Comment on above: Performed By: #### H STROPN, CMP #### [facility] [address] [place] [address] Dr. Tj Wild ALT [Catalytic activity/Vol] 21 U/L Normal 9-52 [facility] Comment on above: Performed By: #### H STROPN, CMP #### [facility] [address] [address] [address] Tj Wild Anion gap [Moles/Vol] 14.4 mmol/L Normal [facility] Comment on above: Performed By: #### H STROPN, CMP #### [facility] [address] [address] [address] jT Wild AST [Catalytic activity/Vol] 27 U/L Normal 14-36 [facility] Comment on above: Performed By: #### H STROPN, CMP #### [facility] [address] [address] [address] Tj Wild Bilirubin [Mass/Vol] 0.5 mg/dL Normal 0.2-1.3 [facility] Comment on above: Performed By: #### H STROPN, CMP #### [facility] [address] [place] [address] Dr. Tj Wild Calcium [Mass/Vol] 8.7 mg/dL Normal 8.4-10.2 [facility] Comment on above: Performed By: #### H STROPN, CMP #### [facility] [address] [address] [address] Tj Wild Chloride [Moles/Vol] 101 mmol/L Normal 98-107 [facility] Comment on above: Performed By: #### H STROPN, CMP #### [facility] [address] [address] [address] Tj Wild CO2 [Moles/Vol] 26.3 mmol/L Normal 22.0-30.0 [facility] Comment on above: Performed By: #### H STROPN, CMP #### [facility] [address] [address] [address] Tj Wild Creatinine [Mass/Vol] 0.89 mg/dL Normal 0.52-1.04 [facility] Comment on above: Performed By: #### H STROPN, CMP #### [facility] [address] [address] [address] Tj Wild EGFR-AF SAO TOMEAN >60 Normal >=60 [facility] Comment on above: Performed By: #### H STROPN, CMP #### [facility] [address] [address] [address] Tj Wild EGFR-NON AF SAO TOMEAN >60 Normal >=60 [facility] Comment on above: Performed By: #### H STROPN, CMP #### [facility] [address] [address] [address] Tj Wild Globulin (S) [Mass/Vol] 3.3 g/dL Normal [facility] Comment on above: Performed By: #### H STROPN, CMP #### [facility] [address] [address] [address] Tj Wild Glucose [Mass/Vol] 116 mg/dL Critically high 74-106 [facility] Comment on above: Performed By: #### H STROPN, CMP #### [facility] [address] [address] [address] Tj Wild Potassium [Moles/Vol] 3.7 mmol/L Normal 3.4-5.0 [facility] Comment on above: Performed By: #### H STROPN, CMP #### [facility] [address] [address] [address] Tj Wild Protein [Mass/Vol] 6.8 g/dL Normal 6.1-8.2 [facility] Comment on above: Performed By: #### H STROPN, CMP #### [facility] [address] [address] [address] Tj Wild Sodium [Moles/Vol] 138 mmol/L Normal 137-145 [facility] Comment on above: Performed By: #### H STROPN, CMP #### [facility] [address] [address] [address] Tj Wild Urea nitrogen [Mass/Vol] 20.0 mg/dL Critically high 7.0-17.0 [facility] Comment on above: Performed By: #### H STROPN, CMP #### [facility] [address] [address] [address] Tj Wild Urea nitrogen/Creatinine [Mass ratio] 22.5 mg/mg Normal [facility] Comment on above: Performed By: #### H VALENTINE, CMP #### [facility] [address] [place], [place] [address] Dr. Tj Wild TROPONIN, HIGH SENSITIVITYon 07-05-2021 HSTROP 10.4 pg/mL Normal 4.0-35.5 [facility] Comment on above: Result Comment: CUT- OFF POINTS HAVE BEEN ESTABLISHED BASED ON THE FOURTH UNIVERSAL DEFINITIONS OF MYOCARDIAL INFARCTION. THE UPPER REFERENCE LIMIT (URL) OF TROPONIN, DEFINED THE 99TH PERCENTILE OF cTnI DISTRIBUTION IN A REFERENCE POPULATION, HAS BEEN CONFIRMED THE DECISION THRESHOLD FOR [place] DIAGNOSIS. Performed By: #### H VALENTINE, CMP #### [facility] [address] [address] [address] Tj Wild XR CHEST 1 Von 07-05-2021 XR CHEST 1 V ONE-VIEW CHEST RADIOGRAPH, 07/05/2021 7:26 PM EST COMPARISON: Chest, 03/22/2019. CLINICAL HISTORY: SHORTNESS OF BREATH Acute dyspnea and vomiting/shortness of breath and vomiting for 2 days. This started after taking antihistamines. Findings and impression: 1. No acute cardiopulmonary disease. 2. Normal heart size. 3. No acute osseous abnormality. Electronically authenticated by: Cassius MCKEON Date: 2021-07-05 20:35 Normal [facility] Vital Signs Date Time Vital Sign Value Performing Clinician Facility 08-21-2023 11:12-0500 Body mass index (BMI) [Ratio] 32.95 kg/m2 Bhumika COKER Work Phone: [facility] 08-21-2023 11:12-050 Body weight 84.37 kg Bhumika COKER Work Phone: [facility] 08-21-2023 11:12-0500 Diastolic blood pressure 60 mm[Hg] Bhumika COKER Work Phone: [facility] 08-21-2023 11:12-0500 Systolic blood pressure 110 mm[Hg] Bhumika COKER Work Phone: [facility] 02-26-2023 15:56-0400 Body temperature 98.78 [degF] Charlie Rubalcava [facility] 02-26-2023 15:56-0400 Diastolic blood pressure 76 mm[Hg] Charlie Rubalcava [facility] 02-26-2023 15:56-0400 Heart rate 107 /min Charlie Rubalcava [facility] 02-26-2023 15:56-0400 Respiratory rate 16 /min Charlie Rubalcava [facility] 02-26-2023 15:56-0400 SaO2% (BldA) [Mass fraction] 98 % Charlie Rubalcava [facility] 02-26-2023 15:56-0400 Systolic blood pressure 115 mm[Hg] Charlie Rubalcava [facility] 12-31-2022 10:16-0400 Body temperature 98.24 [degF] Javier Woods [facility] 12-31-2022 10:16-0400 Diastolic blood pressure 82 mm[Hg] Javier Woods [facility] 12-31-2022 10:16-0400 Heart rate 90 /min Javier Woods [facility] 12-31-2022 10:16-0400 Respiratory rate 18 /min Javier Woods [facility] 12-31-2022 10:16-0400 SaO2% (BldA) [Mass fraction] 99 % Javier Woods [facility] 12-31-2022 10:16-0400 Systolic blood pressure 129 mm[Hg] Javier Peggy [facility] 12-30-2022 13:13-0400 Body temperature 98.06 [degF] Javier Reynae [facility] 12-30-2022 13:13-0400 Diastolic blood pressure 75 mm[Hg] Javier Woods [facility] 12-30-2022 13:13-0400 Heart rate 88 /min Javier Woods [facility] 12-30-2022 13:13-0400 Respiratory rate 16 /min Javier oWods [facility] 12-30-2022 13:13-0400 SaO2% (BldA) [Mass fraction] 96 % Javier Woods [facility] 12-30-2022 13:13-0400 Systolic blood pressure 125 mm[Hg] Javier Woods [facility] 12-21-2022 13:35-0400 Body temperature 98.24 [degF] Charlie Rubalcava [facility] 12-21-2022 13:35-0400 Diastolic blood pressure 77 mm[Hg] Charlie Khadar [facility] 12-21-2022 13:35-0400 Heart rate 93 /min Charlie Khadar [facility] 12-21-2022 13:35-0400 Respiratory rate 18 /min Charlie Khadar [facility] 12-21-2022 13:35-0400 SaO2% (BldA) [Mass fraction] 99 % Charlie Khadar [facility] 12-21-2022 13:35-0400 Systolic blood pressure 128 mm[Hg] Charlie Khadar [facility] 09-05-2022 22:53-0500 Diastolic blood pressure 63 mm[Hg] Kaylinn Dokken [facility] 09-05-2022 22:53-0500 Heart rate 93 /min Kaylinn Dokken [facility] 09-05-2022 22:53-0500 Mean blood pressure 80 mm[Hg] Kaylinn Dokken [facility] 09-05-2022 22:53-0500 Respiratory rate 20 /min Kaylinn Dokken [facility] 09-05-2022 22:53-0500 SaO2% (BldA) [Mass fraction] 95 % Kaylinn Dokken [facility] 09-05-2022 22:53-0500 Systolic blood pressure 114 mm[Hg] Kaylinn Dokken [facility] 09-05-2022 21:45-0500 Diastolic blood pressure 60 mm[Hg] Kaylinn Dokken [facility] 09-05-2022 21:45-0500 Heart rate 97 /min Kaylinn Dokken [facility] 09-05-2022 21:45-0500 Mean blood pressure 80 mm[Hg] Kaylinn Dokken [facility] 09-05-2022 21:45-0500 Respiratory rate 16 /min Kaylinn Dokken [facility] 09-05-2022 21:45-0500 SaO2% (BldA) [Mass fraction] 93 % Kaylinn Dokken [facility] 09-05-2022 21:45-0500 Systolic blood pressure 119 mm[Hg] Kaylinn Dokken [facility] 09-05-2022 21:03-0500 Body temperature 97.52 [degF] Kaylinn Dokken [facility] 09-05-2022 21:03-0500 Diastolic blood pressure 56 mm[Hg] Kaitlininn Dokken [facility] 09-05-2022 21:03-0500 Heart rate 115 /min Kaitlininn Dokken [facility] 09-05-2022 21:03-0500 Respiratory rate 32 /min Perlan Dokken [facility] 09-05-2022 21:03-0500 SaO2% (BldA) [Mass fraction] 95 % Perlan kken [facility] 09-05-2022 21:03-0500 Systolic blood pressure 123 mm[Hg] Kaitlininn Dokken [facility] 04-14-2022 19:00-0400 Diastolic blood pressure 70 mm[Hg] Saúl Hubert [facility] 04-14-2022 19:00-0400 Heart rate 91 /min Saúl Hubert [facility] 04-14-2022 19:00-0400 Mean blood pressure 83 mm[Hg] Saúl Hubert [facility] 04-14-2022 19:00-0400 Respiratory rate 14 /min Saúl Hubert [facility] 04-14-2022 19:00-0400 SaO2% (BldA) [Mass fraction] 96 % Saúl Hubert [facility] 04-14-2022 19:00-0400 Systolic blood pressure 110 mm[Hg] Saúl Hubert [facility] 04-14-2022 18:22-0400 Diastolic blood pressure 64 mm[Hg] Saúl Hubert [facility] 04-14-2022 18:22-0400 Heart rate 87 /min Saúl Hubert [facility] 04-14-2022 18:22-0400 Mean blood pressure 76 mm[Hg] Saúl Hubert [facility] 04-14-2022 18:22-0400 Respiratory rate 20 /min Saúl Hubert [facility] 04-14-2022 18:22-0400 SaO2% (BldA) [Mass fraction] 95 % Saúl Hubert [facility] 04-14-2022 18:22-0400 Systolic blood pressure 100 mm[Hg] Saúl Hubert [facility] 04-14-2022 17:00-0400 Diastolic blood pressure 61 mm[Hg] Saúl Hubert [facility] 04-14-2022 17:00-0400 Respiratory rate 19 /min Saúl Hubert [facility] 04-14-2022 17:00-0400 SaO2% (BldA) [Mass fraction] 93 % Saúl Hubetr [facility] 04-14-2022 17:00-0400 Systolic blood pressure 105 mm[Hg] Saúl Hubert [facility] 04-14-2022 15:35-0400 Heart rate 92 /min Súal Hubert [facility] 04-14-2022 15:35-0400 Respiratory rate 16 /min Saúl Hubert [facility] 04-14-2022 14:48-0400 Body temperature 98.06 [degF] Saúl Hubert [facility] 04-14-2022 14:48-0400 Heart rate 113 /min Saúl Hubert [facility] 10-06-2022 14:48-0400 Respiratory rate 18 /min Saúl Gaspar [facility] 11-19-2021 19:00-0400 Hourly Rounding Javier Woods [facility] 11-19-2021 19:00-0400 Promise to Return Javier Woods [facility] 11-19-2021 18:45-0400 Diastolic blood pressure 64 mm[Hg] Javier Reynae [facility] 11-19-2021 18:45-0400 Heart rate 85 /min Javier Reynae [facility] 11-19-2021 18:45-0400 Mean blood pressure 76 mm[Hg] Javier Reynae [facility] 11-19-2021 18:45-0400 Respiratory rate 16 /min Javier Reynae [facility] 11-19-2021 18:45-0400 SaO2% (BldA) [Mass fraction] 98 % Javier Reynae [facility] 11-19-2021 18:45-0400 Systolic blood pressure 100 mm[Hg] Javier Reynae [facility] 11-19-2021 18:15-0400 Diastolic blood pressure 70 mm[Hg] Javier Reynae [facility] 11-19-2021 18:15-0400 Heart rate 84 /min Javier Reynae [facility] 11-19-2021 18:15-0400 Mean blood pressure 85 mm[Hg] Javier Reynae [facility] 11-19-2021 18:15-0400 Respiratory rate 16 /min Javier Reynae [facility] 11-19-2021 18:15-0400 SaO2% (BldA) [Mass fraction] 96 % Javier Woods [facility] 11-19-2021 18:15-0400 Systolic blood pressure 114 mm[Hg] Javier Woods [facility] 11-19-2021 17:45-0400 Diastolic blood pressure 71 mm[Hg] Javier Woods [facility] 11-19-2021 17:45-0400 Heart rate 86 /min Javier Woods [facility] 11-19-2021 17:45-0400 Mean blood pressure 81 mm[Hg] Javier Woods [facility] 11-19-2021 17:45-0400 Respiratory rate 16 /min Javier Woods [facility] 11-19-2021 17:45-0400 SaO2% (BldA) [Mass fraction] 97 % Javier Woods [facility] 11-19-2021 17:45-0400 Systolic blood pressure 102 mm[Hg] Javier Woods [facility] 11-19-2021 15:45-0400 Blood Pressure Location Javier Woods [facility] 11-19-2021 15:22-0400 Body temperature 98.24 [degF] Javier Woods [facility] 11-19-2021 15:22-0400 Heart rate 111 /min Javier Woods [facility] Encounters Encounter Date Encounter Type Care Provider Facility Start: 08-21-2023 End: 08-21-2023 Office outpatient visit 15 minutes Bhumika COKER Work Phone: [facility] Comment on above: Third trimester preg baltazar; Diabetes mellitus screening; BV (bacterial vaginosis); Nausea Start: 07-20-2023 End: 07-20-2023 ambulatory BRODERICK NICKERSON Not Available Start: 06-15-2023 End: 06-15-2023 ambulatory BHUMIKA MO Not Available Start: 02-26-2023 End: 02-26-2023 Emergency department patient visit Charlie Rubalcava Facility:[facility] Start: 02-26-2023 End: 02-26-2023 Emergency department patient visit Charlie Rubalcava [facility] Start: 01-30-2023 End: 01-31-2023 ambulatory Willa ANDERSON Facility[facility] Start: 12-31-2022 End: 12-31-2022 Emergency department patient visit Javier Woods Facility:[facility] Start: 12-31-2022 End: 12-31-2022 Emergency department patient visit Javier Woods [facility] Start: 12-30-2022 End: 12-30-2022 Emergency department patient visit Javier Woods Facility:[facility] Start: 12-30-2022 End: 12-30-2022 Emergency department patient visit Javier Woods [facility] Start: 12-26-2022 End: 12-27-2022 ambulatory John GRADY Facility[facility] Start: 12-21-2022 End: 12-21-2022 Emergency department patient visit Charlie Rubalcava Facility:[facility] Start: 12-21-2022 End: 12-21-2022 Emergency department patient visit Charlie Rubalcava [facility] Start: 12-15-2022 End: 12-16-2022 ambulatory John GRADY [facility] Start: 09-05-2022 End: 09-06-2022 Emergency department patient visit Quita Clark Facility:[facility] Start: 09-05-2022 End: 09-05-2022 Emergency department patient visit Quita Clark [facility] Start: 09-04-2022 End: 09-04-2022 Emergency department patient visit Solo Kimble Facility:[facility] Start: 07-27-2022 End: 07-27-2022 Emergency department patient visit Saúl Gaspar Facility:[facility] Start: 04-14-2022 End: 04-14-2022 Emergency department patient visit Saúl Gaspar Facility:[facility] Start: 04-14-2022 End: 04-14-2022 Emergency department patient visit Saúl Gaspar [facility] Start: 01-13-2022 End: 01-13-[address] HOLLIE RUBI Facility: Start: 11-19-2021 End: 11-19-2021 Emergency department patient visit Javier Woods [facility] Start: 07-05-2021 End: 07-06-2021 ambulatory PHILLIP LORA Facility: Procedures Date Procedure Procedure Detail Performing Clinician Start: 08-21-2023 Urnls dip stick/tabl et rgnt non-auto w/o micrscp Bhumika COKER Work Phone: Start: 06-15-2023 Cytp cerv/vag auto t hin layer prep mnl screen Broderick Nickerson DO Work Phone: None (qualifier value) Javier Peggy Plan of Treatment Date Care Activity Detail Author Start: 09-04-2023 End: 09-04-2023 Patient encounter procedure 09/04/2023 8:30 AM EST Routine [facility] [address] [place] [address] Broderick Nickerson DO [address] [place] [address] [facility] Start: 08-21-2023 End: 08-21-2024 CBC panel - Blood by Automated count CBC Lab Routine Diabetes mellitus screening Expected: 08/21/2023 (Approximate), Expires: 08/21/2024 [facility] [employer] Work Phone: Comment on above: Expected: 08/21/2023 (Approximate), Expires: 08/21/2024 Start: 08-21-2023 End: 08-21-2024 Measurement of glucose 1 hour after glucose challenge for glucose tolerance test Glucose tolerance, 1 hour Lab Routine Diabetes mellitus screening Expected: 08/21/2023 (Approximate), Expires: 08/21/2024 [facility] Comment on above: Expected: 08/21/2023 (Approximate), Expires: 08/21/2024 Payers Date Payer Category Payer Medicaid [employer] [facility] [place] [id number] 2022-Present [address] [address] [place] [address] [id number] 1990 Unknown [id number] 1990 Unknown [id number] 1990 Unknown [id number] [id number] 1990 Unknown [id number] [id number] 1990 Unknown [id number] [id number] 1990 Unknown [id number] [id number] 1990 Unknown [id number] [id number] 1990 Unknown [id number] [id number] 1990 Unknown [id number] [id number] 1990 Unknown [id number] [id number] 1990 Unknown [id number] [id number] 1990 Unknown [id number] [id number] 1990 Unknown [id number] [id number] 1990 Unknown [id number] [id number] 1990 Unknown [id number] 1959 Unknown [id number] Self-pay Social History Date Type Detail Facility Tobacco Cigarettes [facility] Comment on above: 1 ppd Sex Assigned At Female [facility] Start: 04-14-2022 Tobacco smoking status Heavy tobacco smoker (finding) [facility] Tobacco smoking status NHIS Tobacco smoking consumption unknown [facility] Start: 02-14-2023 [facility] Start: 1990 Sex Assigned At Not on file [facility] Functional Status Date Assessment Result Facility 02-26-2023 Functional Status N/A [facility] 12-31-2022 Functional Status N/A [facility] 12-30-2022 Functional Status N/A [facility] 12-21-2022 Functional Status N/A [facility] 09-05-2022 Functional Status N/A [facility] 04-14-2022 Functional Status N/A [facility] Clinical Notes 07-06-2021 to 08-21-2023 JOHN PAUL Ardon - 08/21/2023 11:10 AM EST Note Date & Type Note Facility 08-21-2023 History of Presen t illness Narrative Reason for Appointment: Patient ID: Rj Elena is a 33 y.o. female who presents for Routine Visit Patient presents today for Return OB appointment. Current Medications: has a current medication list which includes the following prescription(s): brompheniramine-pseudoephedri ne-dm, epinephrine, flonase allergy relief, profe, metoclopramide, metronidazole, ondansetron odt, ondansetron odt, and mv-min-fe fum-fa-dha. Medical History: Active Ambulatory Problems Diagnosis Date Noted Second trimester 07/20/2023 Screen for STD (sexually transmitted disease) 07/20/2023 Nausea and vomiting 07/20/2023 Vaginitis due to Trichomonas 07/20/2023 Resolved Ambulatory Problems Diagnosis Date Noted No Resolved Ambulatory Problems No Additional Past Medical History No family history on file. Social History Tobacco Use Smoking status: Not on file Smokeless tobacco: Not on file Substance Use Topics Alcohol use: Not on file Drug use: Not on file History reviewed. No pertinent surgical history. Allergies Allergen Reactions Amoxicillin Hives Severe has epipen Ibuprofen Hives Severe has epipen Penicillins Hives Severe has epipen Codeine Hives Review of Systems: Review of Systems Constitutional: Negative. HENT: Negative. Eyes: Negative. Respiratory: Negative. Cardiovascular: Negative. Gastrointestinal: Negative. Musculoskeletal: Negative. Skin: Negative. Neurological: Negative. Psychiatric/Behavioral: Negative. All other systems reviewed and are negative. Hematological: Negative. Endocrine: Negative. Objective Physical Exam Constitutional: Appearance: Normal appearance. She is normal weight. HENT: Head: Normocephalic. Cardiovascular: Rate and Rhythm: Normal rate. Pulses: Normal pulses. Pulmonary: Effort: Pulmonary effort is normal. Breath sounds: Normal breath sounds. Abdominal: Palpations: Abdomen is soft. Musculoskeletal: General: Normal range of motion. Neurological: General: No focal deficit present. Mental Status: She is alert and oriented to person, place, and time. Psychiatric: Mood and Affect: Mood normal. Behavior: Behavior normal. Thought Content: Thought content normal. Judgment: Judgment normal. Vitals and nursing note reviewed. Vitals: Estimated body mass index is 32.95 kg/m as calculated from the following: Height as of 04/14/23: 5' 3 . Weight as of this encounter: 186 lb. BP: 110/60 Patient's last menstrual period was 01/31/2023. Assessment/Plan Encounter Diagnoses Name Primary? Third trimester Diabetes mellitus screening BV (bacterial vaginosis) Nausea Patient presents today for a routine obstetrics appointment. Patient is currently 28w6d with a Estimated Date of Delivery: 11/07/23. Patient presents today for a routine obstetrics appointment. Patient is currently 28w6d . Patient states she is doing well but has complaints of being tired due to current . Patient has verbalizes frequent movement. labor precautions was discussed/given and patient was instructed to perform kick counts three times a day. CBC and one hour glucose orders given today Follow Up: Patient is to return to office in 2 week for routine OB appointment. Documented by JOHN PAUL Ardon on behalf of: JOHN PAUL Ardon documented in this encounter [facility] 02-26-2023 Hospital Discharg e instructions Patient Education [...] condition. Follow these instructions at home: Take gkza-[id number] and prescription medicines only as told by [...] and water are not available, use hand open claims representative. Avoid contact with people who have cold [...] it is easier to cough up. Take pmsx-ija-[id number] and prescription medicines only as told by [...] provider. Document Revised: 10/27/2021 Document Reviewed: 10/27/2021 [employer] Patient Education 2022 [employer]. Follow Up Care 02/26/2023 15:53:57 With:[facility] Address: [address] [place] [phone] (1) When:03/01/2023 17:54:59 Comments:Call the office [...] you develop any new or worsening symptoms. [facility] 02-26-2023 Evaluation + Plan note Extrac kathi from: Title:ED Note Author:Juan Ott PA-C e:02/26/23 Bronchitis (J40: Bronchitis, not specified as acute or chronic) Upper respiratory infection (J06.9: Acute upper respiratory infection, unspecified) Orders: albuterol, 2 puff(s), Inhalation, q4hr for 7 day(s), 8.5 gm, Refill(s) 0, [facility], 160, cm, 02/26/23 15:59:00 EDT, Height/Length Dosing, 85.6, kg, 02/26/23 15:59:00 EDT, Weight Dosing brompheniramine/dextromethorphan/PSE, 5 mL, Oral, QID for cold symptoms, 200 mL, Refill(s) 0, [facility], 160, cm, 02/26/23 15:59:00 EDT, Height/Length Dosing, 85.6, kg, 02/26/23 15:59:00 EDT, Weight Dosing guaifenesin, 600 mg = 1 tab(s), Oral, q12hr, X 7 day(s), # 14 tab(s), Refills(s) 0, Pharmacy: [facility], 160, cm, 02/26/23 15:59:00 EDT, Height/Length Dosing, 85.6, kg, 02/26/23 15:59:00 EDT, Weight Dosing predniSONE, 60 mg = 3 tab(s), Oral, Daily, X 5 day(s), # 15 tab(s), Refills(s) 0, Pharmacy: [facility] 1985, 160, cm, 02/26/23 15:59:00 EDT, Height/Length Dosing, 85.6, kg, 02/26/23 15:59:00 EDT, Weight Dosing Rapid COVID Antigen (FT) [facility]06-24-2023 Hospital Discharge instructions Patient Education 12/31/2022 10:41:35 [...] if you start to feel better. Take yetc-yqz-fluzabv and prescription medicines only as told by [...] provider. Document Revised: 09/08/2021 Document Reviewed: 09/08/2021 [employer] Patient Education 2022 [employer]. Follow Up Care 12/31/2022 10:02:50 With:Mark Sitka Address: [address] [place] [phone]- Business (1) When:01/03/2023 10:36:17 Comments:Follow-up with your primary care provider in 3 to 5 days. If symptoms worsen, do not improve, or new symptoms arise please report back to emergency department for further evaluation. [facility]06-23-2023 Hospital Discharge instructions Follow Up Care 12/30/2022 13:07:17 With:Mark Sitka Address: [address] [place] [phone]- Business (1) When:Within 3 Day(s) [facility]06-23-2023 Evaluation + Plan noteExtracted from: Title:ED Note Author:Javier Woods DO Date:12/09 09/29 Otitis externa, left (H60.92 : Unspecified otitis externa, left ear) Orders: ciprofloxacin-dexamethasone otic, 5 drop(s), Otic, BID for 7 day(s), 7.5 mL, Refill(s) 0, [facility], 160, cm, 12/30/22 13:14:00 EDT, Height/Length Dosing, 85.6, kg, 12/30/22 13:14:00 EDT, Weight Dosing [facility]06-14-2023 Hospital Discharge instructions Patient Education 12/21/2022 14:54:11 [...] or swathi your foot. General instructions Take jlzj-utn-txnuoyx and prescription medicines only as told by [...] provider. Document Revised: 10/16/2020 Document Reviewed: 10/16/2020 [employer] Patient Education 2022 [employer]. 12/21/2022 14:54:11 Elastic Bandage and RICE Therapy [...] limityour activities and whether you should start mcbsq-ms-meqopr exercises for your injury. Ice Ice your [...] provider. Document Revised: 08/21/2020 Document Reviewed: 03/16/2018 [employer] Patient Education 2020 [employer]. 12/21/2022 14:54:11 Ankle Sprain, Phase II Rehab [...] by your health care provider. Stretching and kqnol-ia-gvpqrw exercises These exercises warm up your muscles [...] provider. Document Revised: 08/19/2021 Document Reviewed: 08/19/2021 [employer] Patient Education 2022 [employer]. 12/21/2022 14:54:11 Ankle Sprain, Phase I Rehab [...] told by your healthcare provider. Stretching and wkfgl-zm-omxici exercises These exercises warm up your muscles [...] provider. Document Revised: 08/19/2021 Document Reviewed: 08/19/2021 [employer] Patient Education 2022 [employer]. 12/21/2022 14:54:11 Ankle Sprain, Jzls-ck-Yrbo Ankle Sprain An ankle sprain is a [...] blue. Managing pain, stiffness, and swelling Take elfm-fwf-fntnarh and prescription medicines only as told by [...] provider. Document Revised: 08/19/2021 Document Reviewed: 08/19/2021 [employer] Patient Education 2022 [employer]. Follow Up Care 12/21/2022 13:24:37 With:Mark Sitka Address: [address] [place], [place] [id number] [facility] (1) When:12/24/2022 14:27:12 Comments:Follow-up with your primary care provider in 3 to 5 days. If symptoms worsen, do not improve, or new symptoms arise please report back to emergency department for further evaluation. [facility]06-14-2023 Evaluation + Plan noteExtracted from: Title:ED Note Author:Loyd Lange PA-C te:12/21/22 Left ankle sprain (S93.402A: Sprain of unspecified ligament of left ankle, initial encounter) Sprain of left foot (S93.602A: Unspecified sprain of left foot, initial encounter) Orders: Crutches XR Ankle 3+ Views Left XR Foot 3+ Views Left [facility]02-28-2023 Hospital Discharge instructions Patient Education 09/05/2022 22:58:39 Hives, Wbxu-wl-Dpff Hives Hives are itchy, red, swollen areas [...] woman. Being allergic to foods such as: ?[place] fruits. ?Milk. ?Eggs. ?Peanuts. ?Tree nuts. ?Shellfish. [...] instructions at home: Medicines Take or apply ziqp-vot-jeicdqh and prescription medicines only as told by [...] what causes your hives. Take and apply suqi-pkk-kjiqpxi and prescription medicines only as told by your doctor. Keep all follow-up visits as told by your doctor. This is important. This information is not intended to replace advice given to you by your health care provider. Make sure you discuss any questions you have with your health care provider. Document Released: 04/04/2009 Document Revised: 01/09/2019 Document Reviewed: 01/09/2019 [employer] Patient Education 2020 [employer]. Follow Up Care 09/05/2022 21:02:01 With:KATJA MCGINNIS Address: [facility] [place] [address]- Business (1) When:09/08/2022 21:23:21 Comments:Follow-up for further evaluation of your urticarial rashes and reactions. With:Mark Pitts Address: [address] [place] [address]- Business (1) When:Within 3 Day(s) [facility]02-27-2023 Evaluation + Plan noteExtracted from: Title:ED Note Author:Loyd Lange PA-C te:09/05/22 Allergic reaction (T78.40XA: Allergy, unspecified, initial encounter) Urticaria (L50.9: Urticaria, unspecified) Orders: diphenhydrAMINE, 25 mg = 0.5 mL, Injection, IV Push, Once, Stop date 09/05/22 21:11:00 EST, STAT, Start date 09/05/22 21:11:00 EST, 09/05/22 21:11:00 EST epinephrine, 0.3 mg, IntraMuscular, Once, # 1 kit(s), Refills(s) 1, Pharmacy: [facility], 160, cm, 09/05/22 21:08:00 [...] day(s), # 21 tab(s), Refills(s) 0, Pharmacy: [facility], 160, cm, 09/05/22 21:08:00 EST, Height/Length Dosing, 85.6, kg, 09/05/22 21:08:00 EST, Weight Dosing Sodium Chloride 0.9% intravenous solution, 1,000 mL, Soln-IV, IV, Once, Stop date 09/05/22 21:11:00 EST, STAT, Start date 09/05/22 21:11:00 EST, mL/hr, Infuse over 61, minute(s) [facility]10-06-2022 Hospital Discharge instructions Patient Education 04/14/2022 19:42:50 [...] symptoms? Symptoms of anaphylaxis may include: Feeling nuclear plant instrument technician the face (flushed). This may include redness. [...] you have hives or rash: ?Use an gisy-rnv-sjhbhtv antihistamine as told by your health care provider. ?Apply cold, wet cloths (cold compresses) to your skin or take baths or showers in cool water. Avoid hot water. Take ymsj-lnd-hfgtujb and prescription medicines only as told by your health care provider. Tell all your health care providers that you have an allergy. Keep all follow-up visits as told by your health care provider. This is important. How is this prevented? Avoid allergens that have caused an anaphylactic reaction in the past. When you are at a restaurant, tell your room service food server that you have an allergy. If you are not sure whether a menu item contains an ingredient that you are allergic to, ask your room service food server. Where to find more information [employer] [employer]: aaaai.org [employer] [employer]: healthychildren.org Get help right [...] 06/26/2006 Document Revised: 10/18/2018 Document Reviewed: 10/18/2018 [employer] Patient Education 2020 [employer]. Follow Up Care 04/14/2022 14:45:49 With:[facility] Address: [address] [place] [address] Business (1) When:04/17/2022 18:33:05 [facility]05-13-2022 Hospital Discharge instructions Patient Education 11/19/2021 19:08:27 [...] have symptoms of anaphylaxis, such as: Feeling nuclear plant instrument technician the face (flushed). This may include redness. [...] you are at a restaurant, tell your room service food server that you have an allergy. If you are unsure whether a meal has an ingredient that you are allergic to, ask your room service food server. Take bbon-bwc-chtcylz and prescription medicines only as told by [...] 06/23/2001 Document Revised: 06/26/2018 Document Reviewed: 06/26/2018 [employer] Patient Education 2020 [employer]. Follow Up Care 11/19/2021 15:20:25 With:[facility] Address: [address] [place] [address] Business (1) When:11/22/2021 18:25:35 [facility]12-28-2021 NotePROCEDURE: CTA CHEST WO W CON REASON [...] authenticated by: TULIO VILLASEÑOR Date: 2021-07-05 23:35[facility] No data available for this section [facility] Diagnosis Third trimester state, incidental Diabetes mellitus screening Screening for diabetes mellitus BV (bacterial vaginosis) Unspecified vaginitis and vulvovaginitis Nausea Nausea alone documented in this encounter [facility] No data available for this section [facility] Summary Purpose Family History No Family History Records FoundNo Family History Records FoundNo Family History Records Found Advance Directives No Advanced Directives Records FoundNo Advanced Directives Records FoundNo Advanced Directives Records Found Additional Source Comments INFORMATION SOURCE (unrecogn ized section and content) DATE CREATED AUTHOR 01/17/2022 [facility] DATE CREATED AUTHOR AUTHOR'S ORGANIZ ATION 02/26/2023 [facility] DATE CREATED AUTHOR AUTHOR'S ORGANIZ ATION 07/21/2023 [facility] EPIC Patient Care team informatio n (unrecognized section and content) Claims Account Manager Relationship Specialty Start Date End Date Mark Pitts MD [address] [place] [address] PCP - General Family Medicine 04/14/23 Reason for Visit (unrecogniz ed section and content) Reason Comments Routine Visit FOR RECORDS PERTAINING TO PATIENTS WHO ARE [...] BE BASED ON THE PRIMARY CLINICAL RECORDS. [facility] [employer] [facility]. provides no warranty or guarantee of the accuracy or completeness of information in this document.
[2023-08-22 13:50] LABS: Glucose 1 Hour 125 mg/dL (<130)
== END 2023-08-22 12:43 | disposition home or self-care (01) ==
LOC: LAB 12:42
PROVIDERS: Visit Provider Physician Assistant
DX: Z13.1 Encounter for screening for diabetes mellitus (principal)
CPT/HCPCS: 36415; 82950; 85025

== ENCOUNTER 2023-08-23 07:35 | Outpatient (RCR) | payer OTHER, SELFPAY ==
[2023-08-23 14:45] VITALS: BP 120/65; PULSE 96; RESP 18; TEMP 36.5; O2SAT 96
[2023-08-23] MEDS: RHO(D) IMMUNE GLOBULIN 1,500 UNIT SYRINGE 1500 UNIT IM (14:57)
--- NOTE | 2023-08-23 15:32 | PC.NURSE ---
Patient is here for [facility], she had blood work completed yesterday. She tolerated injection well and denies any complaints. She was discharged home ambulatory.
== END 2023-09-07 23:59 | disposition home or self-care (01) ==
LOC: INF 07:35
PROVIDERS: Visit Provider Obstetrics & Gynecology
DX: O26.893 Other specified pregnancy related conditions, third trimester (principal); Z13.1 Encounter for screening for diabetes mellitus; Z67.91 Unspecified blood type, Rh negative
CPT/HCPCS: 36415; 82950; 85025; 86850; 86900; 86901; 96372; J2790

== ENCOUNTER 2023-09-16 15:03 | Emergency (ER) | payer OTHER, SELFPAY ==
[2023-09-16 15:12] VITALS: BP 102/70; PULSE 118; RESP 20; TEMP 36.8; O2SAT 98; BMI 33.6
--- OUTSIDE RECORDS SUMMARY | 2023-09-16 15:12 | XMS_ITS | CCD ---
Author Name Unknown Address [address] [facility] [address] [place] [id number] Organization [facility] Care Team Providers Care Pattern Worker Name Role Phone Mark Pitts Primary Care [...] Jean Attending Unavailable Willa ANDERSON Admitting Unavailable Quita Clark Attending Unavailable Solo Kimble Attending Unavailable Mark Pitts MD Primary Care Provider BRODERICK NICKERSON Attending Unavailable BHUMIKA MO Attending Unavailable BHUMIKA MO Attending Unavailable Allergies Allergy Classification Reported Allergen(s) Allergy Type Date of Onset Reaction(s) Facility (11 sources) Codeine; Translations: [codeine] Drug Allergy 3 [facility] (8 sources) Penicillin; Translations: [penicillin] Drug Allergy [facility] (1 source) Clindamycin Drug Allergy [facility] (1 source) Codeine Drug Allergy 4 [facility] (1 source) Penicillins Drug allergy (disorder) 4 [facility] (10 sources) Ibuprofen; Translations: [ibuprofen] Drug Allergy 3 Anaphylaxis (disorder), [facility] (6 sources) Amoxicillin; Translations: [amoxicillin] Drug Allergy 3 [facility] (3 sources) Penicillins Propensity to adverse reactions 3 [facility] Medications Current Medications Medication Drug Class(es) Dates Sig (Normalized) Sig (Original) Albuterol (Eqv-ProAir HFA) 90 mcg/inh inhalation aerosol (1 source) Start: 02-26-2023 End: 03-05-2023 take 2 puff(s) by inhalation every four hours Albuterol (Eqv-ProAir HFA) 90 mcg/inh inhalation aerosol 2 puff(s), Inhalation, q4hr for 7 day(s), 8.5 gm, Refill(s) 0, [facility], 160, cm, 02/26/23 15:59:00 EDT, Height/Length Dosing, 85.6, kg, 02/26/23 15:59:00 EDT, Weight Dosing Start Date: 02/26/23 Stop Date: 03/05/23 Status: Ordered brompheniramine maleate 0.4 mg/ml / dextromethorphan hydrobromide 2 mg/ml / pseudoephedrine hydrochloride 6 mg/ml oral solution (9 sources) alpha-Adrenergic Agonist, Uncompetitive U-frlxqb-R-aspartat e Receptor Antagonist, Sigma-1 Agonist Start: 02-27-2023 [...] for cold symptoms, 200 mL, Refill(s) 0, [facility], 160, cm, 02/26/23 15:59:00 EDT, Height/Length Dosing, 85.6, kg, 02/26/23 15:59:00 EDT, Weight Dosing Start Date: 02/26/23 Status: Ordered ciprofloxacin 3 mg/ml / dexamethasone 1 mg/ml otic suspension (2 sources) Corticosteroid, Quinolone Antimicrobial Start: 12-30-2022 End: 01-06-2023 Ciprodex 0.3%-0.1% Susp-Otic 5 drop(s), Otic, BID for 7 day(s), 7.5 mL, Refill(s) 0, [facility], 160, cm, 12/30/22 13:14:00 EDT, Height/Length Dosing, 85.6, kg, 12/30/22 13:14:00 EDT, Weight Dosing Start Date: 12/30/22 Stop Date: 01/06/23 Status: Ordered [id number] 0.3 ml EPINEPHrine 1 mg/ml auto-injector (9 sources) alpha-Adrenergic Agonist, beta-Adrenergic Agonist, Catecholamine Start: [...] inventory, # 1 kit(s), Refills(s) 0, Pharmacy: [facility] 1985, 160, cm, 04/14/22 14:56:00 EDT, [...] day(s), # 7 tab(s), Refills(s) 0, Pharmacy: [facility] 1985, 160, cm, 04/14/22 14:56:00 EDT, Height/Length Dosing, 83, kg, 04/14/22 14:56:00 EDT, Weight Dosing Start Date: 04/14/22 Stop Date: 04/21/22 Status: Ordered Start: 11-19-2021 End: 11-26-2021 take 1 tablet by mouth once daily at bedtime Pepcid 40 mg Tab 40 mg = 1 tab(s), Oral, Once a day (at bedtime), X 7 day(s), # 7 tab(s), Refills(s) 0, Pharmacy: [facility] 1986, 160, cm, 11/19/21 15:30:00 EDT, Height/Length Dosing, 83, kg, 11/19/21 15:30:00 EDT, Weight Dosing Start Date: 11/19/21 Stop Date: 11/26/21 Status: Ordered fluticasone propionate 0.05 mg/actuat metered dose nasal spray (5 sources) Corticosteroid Start: 12-31-2022 Flonase Allerg y Relief 50 MCG/ACT nasal spray Administer into affected nostril(s) 0 12/31/2022 Active Start: 12-31-2022 take 2 spray(s) nasa l route once daily Flonase 0.05 mg/inh Macon 2 spray(s), Nasal, Daily, 16 gram, Refill(s) 0, each nostril, [facility], 160, cm, 12/31/22 10:20:00 EDT, [...] day(s), # 14 tab(s), Refills(s) 0, Pharmacy: [facility], 160, cm, 02/26/23 15:59:00 EDT, Height/Length Dosing, 85.6, kg, 02/26/23 15:59:00 EDT, Weight Dosing Start Date: 02/26/23 Stop Date: 03/05/23 Status: Ordered metoclopramide 10 mg oral tablet (3 sources) Dopamine-2 Receptor Antagonist Start: 07-20-2023 metoclopramide [...] 07/20/2023 Active metroNIDAZOLE 500 mg oral tablet (3 sources) Nitroimidazole Antimicrobial Start: 08-21-2023 End: 08-28-2023 [...] Ordered ondansetron 4 mg disintegrating oral tablet (6 sources) Serotonin-3 Receptor Antagonist Start: 08-21-2023 End: [...] polysaccharide iron complex 391 mg oral capsule (3 sources) Start: 06-15-2023 End: 06-14-2024 take 1 [...] day(s), # 15 tab(s), Refills(s) 0, Pharmacy: [facility], 160, cm, 02/26/23 15:59:00 EDT, Height/Length Dosing, 85.6, kg, 02/26/23 15:59:00 EDT, Weight Dosing Start Date: 02/26/23 Stop Date: 03/03/23 Status: Ordered Start: 09-05-2022 End: 09-12-2022 take 3 tablets by mouth once daily predniSONE 20 mg Tab 60 mg = 3 tab(s), Oral, Daily, X 7 day(s), # 21 tab(s), Refills(s) 0, Pharmacy: [facility] 1986, 160, cm, 09/05/22 21:08:00 EST, Height/Length Dosing, 85.6, kg, 09/05/22 21:08:00 EST, Weight Dosing Start Date: 09/05/22 Stop Date: 09/12/22 Status: Ordered Start: 04-14-2022 End: 04-21-2022 take 3 tablets by mouth once daily predniSONE 20 mg Tab 60 mg = 3 tab(s), Oral, Daily, X 7 day(s), # 21 tab(s), Refills(s) 0, Pharmacy: [facility] 1985, 160, cm, 04/14/22 14:56:00 EDT, Height/Length Dosing, 83, kg, 04/14/22 14:56:00 EDT, Weight Dosing Start Date: 04/14/22 Stop Date: 04/21/22 Status: Ordered Start: 11-19-2021 End: 11-26-2021 take 3 tablets by mouth once daily predniSONE 20 mg Tab 60 mg = 3 tab(s), Oral, Daily, X 7 day(s), # 21 tab(s), Refills(s) 0, Pharmacy: [facility] 1985, 160, cm, 11/19/21 15:30:00 EDT, [...] Status: Ordered MV-Min-Fe Fum-FA-DHA ( 1 PO) (3 sources) MV-Min- Fe Fum-FA-DHA ( 1 PO) Take 1 each by mouth in the morning. 0 Active promethazine hydrochloride 25 mg oral tablet (7 sources) Phenothiazine Start: 03-21-2019 take 1 tablet by mouth every four hours promethazine 25 mg Tab 25 mg = 1 tab(s), Oral, q4hr, # 14 tab(s), Refills(s) 0, Pharmacy: [facility] 1985 Start Date: 03/21/19 Status: Ordered traMADol hydrochloride 50 mg oral tablet (1 source) Opioid Agonist Start: 12-31-2022 End: 01-03-2023 take 1 tablet by mouth every six hours as needed for pain traMADOL 50 mg Tab 50 mg = 1 tab(s), Oral, q6hr, PRN for pain, X 3 day(s), # 12 tab(s), Refills(s) 0, Pharmacy: [facility], 160, cm, 12/31/22 10:20:00 EDT, Height/Length Dosing, 85.6, kg, 12/31/22 10:20:00 EDT, Weight Dosing Start Date: 12/31/22 Stop Date: 01/03/23 Status: Ordered Zofran ODT 4 mg Tab-Dis (14 sources) Start: 08-05-2019 take 1 tablet by mouth three times daily Zofran ODT 4 mg Tab-Dis 4 mg = 1 tab(s), Oral, TID, # 15 tab(s), Refills(s) 0, Pharmacy: [facility], 160, cm, 08/05/19 9:28:00 EST, Height/Length Measured, 86.5, kg, 08/05/19 9:28:00 EST, Weight Measured Start Date: 08/05/19 Status: Ordered Start: 03-21-2019 take 1 tablet by savannah th every six hours Zofran ODT 4 mg Tab-Dis 4 mg = 1 tab(s), Oral, q6hr, # 10 tab(s), Refills(s) 0, Pharmacy: [facility] 1985 Start Date: 03/21/19 Status: Ordered [...] Episodic Immunizations and screening for infectious disease (5 sources) Patient encounter status; Translations: [Encounter for screening for infections with a predominantly sexual mode of transmission] Onset: 07-20-2023 07-20-2023 Episodic Inflammatory diseases of female pelvic organs (2 sources) Bacterial vaginosis; Translations: [Acute vaginitis] 08-21-2023 Episodic Nausea and vomiting (6 sources) Nausea with vomiting, unspecified; Translations: [Nausea] Onset: 07-07-2021 08-21-2023 Episodic Other ear and sense organ disorders (1 source) Otitis externa of left ear; Translations: [Unspecified otitis externa, left ear] Onset: 12-30-2022 Chronic Other ear and sense organ disorders (1 source) Otitis externa of bilateral ears; Translations: [Unspecified otitis externa, bilateral] Onset: 12-31-2022 Chronic Other infections; including parasitic (3 sources) Trichomonal vaginitis; Translations: [Trichomonal vulvovaginitis] Onset: 07-20-2023 07-20-2023 Episodic Other and delivery including normal (5 sources) Third trimester ; Translations: [Encounter for [...] te Episodic/Chronic Other aftercare (1 source) 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; Translations: [OTH [facility] CURRENT DRUG THERAPY] Onset: 07-07-2021 Episodic Other lower respiratory disease (4 sources) Shortness of breath; Translations: [SHORTNESS OF BREATH] Onset: 07-05-2021 Episodic Pneumonia (except that caused by tuberculosis or sexually transmitted disease) (1 source) Pneumonia, unspecified organism; Translations: [PNEUMONIA UNSPECIFIED ORGANISM] Onset: 07-07-2021 Episodic Unclassified (1 source) COUGH, UNSPECIFIED; Translations: [COUGH, UNSPECIFIED] Onset: 01-13-2022 Results Test Name Value Interpretation Reference Range Facility ALL CBC WITH AUTO DIFFon BASOPHILS ABSOLUTE AUTO 0.0 [facility] Basophils/100 WBC (Bld) 0.2 % 0.2 - 2.0 % [facility] Eosinophils/100 WBC (Bld) 0.7 % Low 0.9 - 7.0 % [facility] Erythrocyte distribution width (RBC) [Ratio] 15.0 % 11.0 - 15.0 % [facility] Hematocrit (Bld) [Volume fraction] 31.4 % Low 36.0 - 48.0 % [facility] Hemoglobin (Bld) [Mass/Vol] 9.7 g/dL Low 12.0 - 16.0 g/dL [facility] IMMATURE GRANULOCYTES ABS AUTO 0.05 High [facility] Immature granulocytes/100 WBC (Bld) 0.4 % 0.0 - 0.5 % [facility] Interpretation and review of laboratory results Abnormal [facility] LYMPHOCYTES ABSOLUTE AUTO 2.6 [facility] Lymphocytes/100 WBC (Bld) 19.4 % Low 20.5 - 60.0 % [facility] MCH (RBC) [Entitic mass] 25.3 pg Low 26.7 - 34.0 pg [facility] MCHC (RBC) [Mass/Vol] 30.9 g/dL 29.9 - 35.2 g/dL [facility] MCV (RBC) [Entitic vol] 82.0 fL 81.0 - 99.0 fL [facility] MONOCYTES ABSOLUTE AUTO 0.3 [facility] Monocytes/100 WBC (Bld) 2.6 % 1.7 - 12.0 % [facility] NEUTROPHILS ABSOLUTE AUTO 10.2 High [facility] Neutrophils/100 WBC (Bld) 76.7 % High 43.0 - 75.0 % [facility] Platelet mean volume (Bld) [Entitic vol] 10.6 fL 9.5 - 13.5 fL [facility] TBH EO # 0.1 [facility] TB PLT 176 [facility] TB RBC 3.83 Low [facility] WBC 13.3 High [facility] Urinalysis macro (dipstick) panel (U)on 08-21-2023 Bilirubin, UA Negative Negative - 4(70) +++ mg/dL [facility] Blood, UA Negative Negative - 50 Juan Alberto/mcL [facility] Clarity, UA Clear [facility] Color, UA Yellow [facility] Glucose, UA Negative Negative - 2000(110) ++++ mg/dL [facility] Interpretation and review of laboratory results Normal [facility] Ketones, UA Negative Negative - 160(16) ++++ mg/dL [facility] Leukocytes, UA Negative Negative - 500+++ Geovani/mcL [facility] Nitrite, UA Negative Negative - Positive [facility] pH, UA 7.0 5 - 9 [facility] Protein, UA Negative Negative - 1999(20) ++++ mg/dL [facility] Spec Grav, UA 1.015 1 - 1.03 [facility] Urobilinogen, UA 0.2 0.2 - 12 mg/dL [facility] Cytology Cervical or vaginal smear or scraping studyon 06-15-2023 [facility] Consent for Treatmenton 02-08 Consent for Treatment [id number] .00CD:127 Normal [facility] Discharge Instructionson Discharge Instructions [id number]# 1.00CD:127 Normal [facility] ED Clinical Summaryon 2022 ED Clinical Summary [place] [id number] ED Clinical Summary Person Information Name: RJ ELENA [facility] Age: 32 Years : 1990 Sex: Female Language: [place] Citizen PCP: Mark Pitts DO Marital Status: Single Phone: [phone] Visit Id: Visit Reason: Shortness of breath; [...] 02/26/2023 18:10:02 02/26/2023 18:10:02 02/26/2023 18:10:02 ADDRESS: [address] [place] [address] [address] [facility] [id number] [facility] DOC NOTES: MEDICAL INFORMATION: Prescriptions Given: New Medications [facility], [address] [place], [place] [id number], [phone] albuterol (Albuterol (Eqv-ProAir HFA) 90 mcg/inh inhalation aerosol) 2 Puffs Inhalation every 4 hours for 7 Days. Refills: 0. guaifenesin (Mucinex 600 mg Tab-ER) 1 Tablets By Mouth every 12 hours for 7 Days. Refills: 0. Medications to Continue Taking That Have Changed [facility] 1985, [address] [place], [place] [id number], [phone] START: brompheniramine/dextr omethorphan/PSE (Bromfed DM oral syrup) [...] Refills: 0. fluticasone nasal (Flonase 0.05 mg/inh [place]) 2 Sprays Nasal Inhalation every day. each [...] Bronchitis, Adult Follow up: With: Address: When: Mark Pitts [address] [place], [place] [id number] Business (1) In 3 days 03/01/2023 Comments: [...] symptoms. DIAGNOSIS: Bronchitis; Upper respiratory infection Normal [facility] ED Note-Physicianon 02-27-20 ED Note-Physician Basic Information [...] and Complexity of Problems Differential Diagnosis: [] [facility] Data External documents reviewed: [] My EKG [...] taken them within the last 30 days. [[facility] PERFORMANCE EXCEPTION/EXCLUSION] [ ] The patient had [...] for 7 day(s), 8.5 gm, Refill(s) 0, [facility], 160, cm, 02/26/23 15:59:00 EDT, Height/Length Dosing, 85.6, kg, 02/26/23 15:59:00 EDT, Weight Dosing brompheniramine/dextr omethorphan/PSE, 5 mL, Oral, QID for cold symptoms, 200 mL, Refill(s) 0, [facility], 160, cm, 02/26/23 15:59:00 EDT, Height/Length Dosing, 85.6, kg, 02/26/23 15:59:00 EDT, Weight Dosing guaifenesin, 600 mg = 1 tab(s), Oral, q12hr, X 7 day(s), # 14 tab(s), Refills(s) 0, [facility], [facility], cm, 02/26/23 15:59:00 EDT, Height/Length Dosing, 85.6, kg, 02/26/23 15:59:00 EDT, Weight Dosing predniSONE, 60 mg = 3 tab(s), Oral, Daily, X 5 day(s), # 15 tab(s), Refills(s) 0, Pharmacy: [facility] (more content not included)... Normal [facility] Comment on above: Result Comment: Elec tronically Signed By: Namrata CAO, Juan Pyle\.br\Date and Time Signed: 02/26/23 18:46 EDT\.br\Electronically Co-Signed By: Charlie Rubalcava DO.br\Date and Time Co-Signed: 02/26/23 18:51 EDT ED [...] Follow these instructions at home: ? Take yvqn-xrz-iincghb and prescription medicines only as told by [...] and water are not available, use hand regional operations director. ? Avoid contact with people who have [...] is easier to cough up. ? Take whgr-yfo-ybkmmjd and prescription medicin (more content not included)... Normal [facility] ED Patient Summaryon 023 ED Patient Summary [place] [id number] Patient Discharge Instructions Person Information Name: RJ ELENA Age: 32 Years Arrival Date: 02/26/2023 15:53:15 Discharge Diagnosis: Bronchitis; Upper respiratory infection Primary Care Physician: Mark Pitts DO Provider Information Primary Provider: Charlie Rubalcava DO [employer] Supervisor:Juan Ott PA-C The exam and treatment you received in the Emergency Department were for an urgent problem and are not intended as complete care. It is important that you follow up with a doctor, nurse practitioner, or physician?s dam tender assistant for ongoing care. If your symptoms [...] Follow-up Instructions: With: Address: When: Mark Pitts [address] [place] [address] [facility] (1) In 3 days 03/01/2023 Comments: [...] opioids can be used to help relieve telucatf-nn-abbder pain and are often prescribed following a [...] and family) (more content not included)... Normal [facility] MICRO OTHER TESTSOrdered By: Juvenal Macario on 02-26-2023 Rapid COV Int NEG Ctl Pass (02/26/23 4:45 PM) Normal [facility] Man [place] Rapid COV Int POS Ctl Pass (02/26/23 4:45 PM) Normal [facility] [place] SARS-CoV+SARS-CoV-2 (COVID-19) Ag IA.rapid Ql (Resp) Not Detected (02/26/23 4:45 PM) Normal Not Detected [facility] [place] Prescriptions/Work Noteson 0 02-26-2023 Prescriptions/Work Notes [id number]# 1.00CD:127 Normal [facility] Rapid COVID Antigen ([facility])on 02-26-2023 Rapid COV Int NEG Ctl Pass Normal [facility] Comment on above: Performed By: #### 2 [id number] ####[facility] [address] [place] [address] Rapid COV Int POS Ctl Pass Normal [facility] Comment on above: Performed By: #### 2 [id number] ####[facility] [address] [place] [address] SARS-CoV+SARS-CoV-2 (COVID-19) Ag IA.rapid Ql (Resp) Not detected Normal Not Detected [facility] Comment on above: Result Comment: The [employer]? System for Rapid Detection of SARS-CoV-2 is [...] or revoked sooner. Performed By: #### 2 [id number] ####[place] [address] ADMITTED TO INTENSIVE CARE UNIT FOR CONDITION OF INTEREST:FIND:PT: NO Normal [facility] Comment on above: Performed By: #### 2 [id number] ####[place] [address] EMPLOYED IN A HEALTHCARE SETTING:FIND:PT: NO Normal [facility] Comment on above: Performed By: #### 2 [id number] ####[place] [address] FIRST TEST FOR CONDITION OF INTEREST:FIND:PT: Unknown Normal [facility] Comment on above: Performed By: #### 2 [id number] ####[facility] [address] [place] [address] HAS SYMPTOMS RELATED TO CONDITION OF INTEREST:FIND:PT: YES Normal [facility] Comment on above: Performed By: #### 2 [id number] ####[place] [address] HOSPITALIZED FOR CONDITION OF INTEREST:FIND:PT: NO Normal [facility] Comment on above: Performed By: #### 2 [id number] ####[facility] [address] [place] [address] STATUS:FIND:PT: NO Normal [facility] Comment on above: Performed By: #### 2 [id number] ####[place] [address] [facility]IDES IN A [facility] SETTING:FIND:PT: NO Normal [facility] Comment on above: Performed By: #### 2 [id number] ####[facility] [address] [place] [address] XR Chest 2 Viewson 3 XR Chest [...] mGy = na DAP = na Normal [facility] In office Testingon 01-31-20 23 In office Testing [id number] .00CD:127 Normal [facility] Registrationon 01-30-2023 Registration [id number]# 1.00CD:127 Normal [facility] ED Note-Physicianon 01-10-20 ED Note-Physician Basic Information Time Seen: Loyd [...] Daily, 16 gram, Refill(s) 0, each nostril, [facility], 160, cm, 12/31/22 10:20:00 EDT, Height/Length Dosing, 85.6, kg, 12/31/22 10:20:00 EDT, Weight Dosing tramadol, 50 mg = 1 tab(s), Oral, q6hr, PRN for pain, X 3 day(s), # 12 tab(s), Refills(s) 0, Pharm[facility]: [facility], 160, cm, 12/31/22 10:20:00 EDT, Height/Length Dosing, 85.6, kg, 12/31/22 10:20:00 EDT, Weight Dosing Disposition Plan Patient Discharge Condition Stable Discharge Disposition To home Discharge Prescription List Prescriptions Ciprodex 0.3%-0.1% Susp-Otic, 5 drop(s), Otic, BID Flonase 0.05 mg/inh [place], 2 spray(s), Nasal, Daily traMADOL 50 mg Tab, 50 mg= 1 tab(s), Oral, q6hr, PRN Follow-up With When Contact Information Mark Pitts In 3 days 01/03/2023 EDT [address] [place] [address]- Business (1) Additional Instructions: Follow-up with your primary care provider in 3 to 5 days. If symptoms worsen, do not improve, or new symptoms arise please report back to emergency department for further evaluation. Patient Education Otitis Externa Attestation Patient seen and evaluated by the physician dam tender assistant. Attending physician was present in the emergency department and supervised care. This visit was performed by both the physician and an APC. I performed all aspects of the MDM as documented. This report was transcribed u (more content not included)... Normal [facility] Comment on above: Result Comment: Elec tronically Signed By: Loyd Lange PA-C\.br\Date and Time Signed: 12/31/22 11:53 EDT\.br\Electronically Co-Signed By: Jvaier oWods DO\.haris\Date and Time Co-Signed: 01/09/23 07:15 EDT Consent for Treatmenton 12-09 Consent for Treatment [id number] .00CD:127 Normal [facility] Discharge Instructionson Discharge Instructions [id number] 1.00CD:127 Normal [facility] ED Clinical Summaryon 2022 ED Clinical Summary [address] [address] ED Clinical Summary Person Information Name: RJ ELENA[place] Age: 32 Years : 1990 Sex: Female Language: [place] Citizen PCP: Mark Pitts DO Marital Status: Single Phone: [phone] Visit Id: Visit Reason: Ear pain; EAR [...] 12/31/2022 10:41:35 12/31/2022 10:41:35 12/31/2022 10:41:35 ADDRESS: [address] [place] [id number] PHYS DOC NOTES: MEDICAL INFORMATION: Prescriptions Given: New Medications [facility], [address] [place], [place] [id number], [phone] fluticasone nasal (Flonase 0.05 mg/inh [place]) 2 Sprays Nasal Inhalation every day. each [...] Otitis Externa Follow up: With: Address: When: [address] [place] [address] Business (1) In 3 days 01/03/2023 Comments: Follow-up with your primary care provider in 3 to 5 days. If symptoms worsen, do not improve, or new symptoms arise please report back to emergency department for further evaluation. DIAGNOSIS: Bilateral otitis externa Normal [facility] ED Patient Education Noteon 12-31-2022 ED Patient [...] you start to feel better. ? Take psrk-unt-emzxlcl and prescription medicines only as told by [...] provider. Document Revised: 09/08/2021 Document Reviewed: 09/08/2021 [employer] Patient Education ? 2022 [employer] Normal [facility] ED Patient Summaryon 023 ED Patient Summary [place] [id number] Patient Discharge Instructions Person Information Name: RJ ELENA Age: 32 Years Arrival Date: 12/31/2022 10:01:25 Discharge Diagnosis: Bilateral otitis externa Primary Care Physician: Mark Pitts DO Provider Information Primary Provider: Javier Woods DO [employer] Supervisor:None The exam and treatment you received in the Emergency Department were for an urgent problem and are not intended as complete care. It is important that you follow up with a doctor, nurse practitioner, or physician?s dam tender assistant for ongoing care. If your symptoms [...] Follow-up Instructions: With: Address: When: Mark Pitts [address] [place], [place] [phone] Business (1) In 3 days 01/03/2023 Comments: [...] opioids can be used to help relieve mgxfunbn-xi-jgdzae pain and are often prescribed following a [...] and overdose. ? (more content not included)... [facility] Consent for Treatmenton 12-09 Consent for Treatment [id number]#1 .00CD:127 [facility] Discharge Instructionson Discharge Instructions [id number]# 1.00CD:127 [facility] ED Clinical Summaryon 2022 ED Clinical Summary [place] [id number] ED Clinical Summary Person Information Name: RJ ELENA [place] Age: 32 Years : 1990 Sex: Female Language: [place] Citizen PCP: Mark Pitts DO Marital Status: Single Phone: [phone] Visit Id: Visit Reason: Ear pain; DOUBLE [...] 12/30/2022 13:59:40 12/30/2022 13:59:40 12/30/2022 13:59:40 ADDRESS: [address] [place] [address] [address] [facility] [phone] [facility] DOC NOTES: MEDICAL INFORMATION: Prescriptions Given: New Medications [facility] 1986, [address] [place], [place] [id number], [phone] ciprofloxacin-dexamet hasone otic (Ciprodex 0.3%-0.1% Susp-Otic) 5 [...] INFORMATION: Instructions: Follow up: With: Address: When: [place] [id number] Business (1) In 3 days DIAGNOSIS: Otitis externa, left Normal [facility] ED Note-Physicianon 12-31-19 ED Note-Physician Basic Information [...] for 7 day(s), 7.5 mL, Refill(s) 0, [facility] 1985, 160, cm, 12/30/22 13:14:00 EDT, Height/Length Dosing, 85.6, kg, 12/30/22 13:14:00 EDT, Weight Dosing Disposition Plan Discharge Prescription List Prescriptions Ciprodex 0.3%-0.1% Susp-Otic, 5 drop(s), Otic, BID Follow-up With When Contact Information Mark Pitts In [address] [place] [address] [facility] (1) Additional Instructions: Problem List/Past Medical [...] Diagnostic Results No qualifying data available. Normal [facility] Comment on above: Result Comment: Elec tronically Signed By: Javier Woods DO\.br\Date and Time Signed: 12/30/22 13:54 EDT ED Patient Education Noteon 12-30-2022 ED Patient Education Note Normal [facility] ED Patient Summaryon 023 ED Patient Summary [address] [address] Patient Discharge Instructions Person Information Name: RJ ELENA Age: 32 Years Arrival Date: 12/30/2022 13:06:22 Discharge Diagnosis: Otitis externa, left Primary Care Physician: Mark Pitts DO Provider Information Primary Provider: Javier Woods DO [employer] Supervisor:None The exam and treatment you received in the Emergency Department were for an urgent problem and are not intended as complete care. It is important that you follow up with a doctor, nurse practitioner, or physician?s dam tender assistant for ongoing care. If your symptoms [...] Follow-up Instructions: With: Address: When: Mark Pitts [address] [place] [address] (1) In 3 days In the event that this physician does not participate in your insurance network, please consult with your insurance company to find a nearby participating provider. Patient Education Materials: A MESSAGE TO ALL PATIENTS REGARDING OPIOIDS PRESCRIPTION OPIOIDS: WHAT YOU NEED TO KNOW Prescription opioids can be used to help relieve oeiwnstm-cj-mlzcmm pain and are often prescribed following a [...] be struggling with addiction, tell your health manager critical care and ask for guidance or call [facility]?S National Helpline at 6-564-901-MUQM. a Source: Department of Health and Human Services/Adeline (more content not included)... [facility] Registrationon 12-27-2022 Registration [id number]#1. 00CD:127 [facility] [place] 12-26-2022 Consent [id number]# 1.00CD:127 [facility] Registrationon 12-26-2022 Registration [id number]# 1.00CD:127 [facility] Consent for Treatmenton 12-08 Consent for Treatment [id number]#1 .00CD:127 [facility] Discharge Instructionson Discharge Instructions [id number]#1 .00CD:127 [facility] ED Clinical Summaryon 2022 ED Clinical Summary [place] [address] ED Clinical Summary Person Information Name: RJ ELENA [place]ista[place] Age: 32 Years : 1990 Sex: Female Language: [place] Citizen PCP: Mark Pitts DO Marital Status: Single Phone: [phone] Visit Id: Visit Reason: Foot pain-swelling; ROLLED [...] 12/21/2022 14:54:11 12/21/2022 14:54:11 12/21/2022 14:54:11 ADDRESS: [address] [place] [address] [address] [facility] [id number] PHYS DOC NOTES: MEDICAL INFORMATION: Prescriptions Given: [...] Ankle Sprain, Phase I Rehab; Ankle Sprain, Bnhh-tb-Knbb Follow up: With: Address: When: Mark Pitts [address] [place] [id number] Business (1) In 3 days 12/24/2022 Comments: Follow-up with your primary care provider in 3 to 5 days. If symptoms worsen, do not improve, or new symptoms arise please report back to emergency department for further evaluation. DIAGNOSIS: Left ankle sprain; Sprain of left foot Normal [facility] ED Note-Physicianon 12-22-19 ED Note-Physician Basic [...] and Complexity of Problems Differential Diagnosis: [] [facility] Data External documents reviewed: [] My EKG [...] active prescription medications Follow-up With When Contact [facility] In 3 days 12/24/2022 EDT [address] [place] [address]- Business (1) Additional Instructions: Follow-up with your primary care provider in 3 to 5 days. If symptoms worsen, do not improve, or new symptoms arise please report back to emergency department for further evaluation. Patient Education Foot Sprain Elastic Bandage and RICE Therapy Ankle Sprain, Phase II Rehab Ankle Sprain, Phase I Rehab Ankle Sprain, Vyjl-oe-Owxc Attestation Patient seen and evaluated by the physician dam tender assistant. Attending physician was present in the emergency department and supervised care. This visit was performed by both the physician and an APC. I performed all aspects of the MDM as documented. This report was transcribed using voice recognition software. Every effort was made to ensure accuracy, however, inadvertent (more content not included)... Normal [facility] Comment on above: Result Comment: Elec tronically [...] on your foot. General instructions ? Take fbmq-zdc-pfiksyr and prescription medicines only as told by your health care provider. ? When you can walk without pain, wear supportive shoes t (more content not included)... Normal [facility] ED Patient Summaryon 023 ED Patient Summary [place] [id number] Patient Discharge Instructions Person Information Name: RJ ELENA Age: 32 Years Arrival Date: 12/21/2022 13:23:04 Discharge Diagnosis: Left ankle sprain; Sprain of left foot Primary Care Physician: Mark Pitts DO Provider Information Primary Provider: Charlie Rubalcava DO [employer] Supervisor:None The exam and treatment you received in the Emergency Department were for an urgent problem and are not intended as complete care. It is important that you follow up with a doctor, nurse practitioner, or physician?s dam tender assistant for ongoing care. If your symptoms [...] Follow-up Instructions: With: Address: When: Mark Pitts [address] [place], [place] [id number] [employer] (1) In 3 days 12/24/2022 Comments: Follow-up [...] Ankle Sprain, Phase I Rehab; Ankle Sprain, Ruwq-el-Cuvm A MESSAGE TO ALL PATIENTS REGARDING OPIOIDS PRESCRIPTION OPIOIDS: WHAT YOU NEED TO KNOW Prescription opioids can be used to help relieve iinnbxyp-ty-nexagb pain and are often prescribed following a [...] Drug Administrati (more content not included)... Normal [facility] XR Ankle 3+ Views Lefton XR Ankle [...] mGy = . DAP = . Normal [facility] XR Foot 3+ Views Lefton 12-08 XR [...] mGy = . DAP = . Normal [facility] Registrationon 12-16-2022 Registration [id number]# 1.00CD:127 Normal [facility] [place] 12-15-2022 Consent [id number]# 1.00CD:127 Normal [facility] Coding Summary.on 09-06-2022 Coding Summary. CD:[id number] G h0bWw+PGhlYWQ+KQ8OCHT iO07rkURjxD9KN3fDSQ2B PLETCCJODL8PTI0ndCI9Q OzsE5PfnnDb AcitnFOuYA73BRp4NHG4x OqeRLyscZ0fxPMrK2k9Aw CvCH52mW49TEtvLBJlXyD 3LjZpbjsgbWFy V2twBtRyjPKkJjf+PHRhY mxlIHdpZHRoPScxMDAlJy EbyUanRQ8gEl4tUDVrZEK vbGxhcHNlOiBj d6veBQAfTIrmXV4wtAcpO 7LuaUI9VMPms7n8Uk98gJ I+GIJwJXO0fPfaYMohi78 2WtVjb6xlVKT2 tTPdLHsoBKH8I16bh0R2Y ZGmGYLzTZK9eZE8nO1yfD ucwnulB1IzvRTtNjE9ALP 3nBVpbE6wdOwh ekmbuQ9rGqw+C85WSW0EG CBEQX6RVqz3V8WjOjtylJ I+FG36GNMnBQ45kSZpaYM of8aiuWq3CsWq EQOkJCE8xGwzXNidq2AtL YIeB64taBSbj8P0GGPqnV wvuZHsSvNelVF8kX5lTAk goiiuy6dmcipj Hfixz4gbas31aP26Z50kQ YhmVUDmJAO1KBExFUKqkJ gbjx9egG6eBx1+ADjtp6f jy1zrcZf2NhCk NSFpwxBxiHifDSH9n7KlM y19J5DzbNzsx8TfKpd8sj 41tQVnt1J8wKY3CHghQQG hvS4nCTdsTeC8 OUUyCfVhdQ35sZFdVVshR n3foQcliAkdSH2rENDgwz eeLRIquC8rBKAltASzsXg vKV5xVQLbmydj p744WbInSEB5QVMidEEoM 5RjoT7jDlJvRFGyNJOfK1 DkoDRiGEpfA291HHsbMkX 8PVKguyNqT6Vl QTUbvLefGhB4w4U4Jp8Ev 1JoxmduBEM4LWomCHTzLi Y6OrPbLhU8V4XxDcd8DFK bvWakSN0hT9Gs XRSlasoehdeziTF5YMYgC IDheZ01eHRwXJflLk9uo7 T4k828ONQiHNEnrU35Vt2 udDogMTBwdCBU pT8xtmbsl0rngutgIsUyO EEwMVy1KPr8ESXkjRrbIq SpFXK9OgA1MHA3zTQecU7 yiDkziitonB2s Oyc+E75uoN3kEVG8GZO0e geqVQXbphVvVT52BJ20H0 RyPjwvdGFibGU+PGRpdiB ggPhtQC7bJlJu k5dxi9YlNKecE9VmKOKxU ApiYhg7MNToCOG6kIQ8dT 1nYPKbDMmka8B3uOP4K7M ifzDdmd5ph9dq TSFlWAonX92gxUWpm9Z2K LYgfDB0CDZzqQepQlLelR 93Oyc+MMKgmJdli4HmRdh lh3fas7ynkVk9 CoUbUYUyjwKsuUvvRXQ8b 8ToSe80Y82pFRspOBVhLG CuENCcNKLqyGbkiu5zaE4 wIi8+PGNvbCB3 vMF3tH5iSYTyWgV6RTsiQ 444DzNxsGUlSyhws6qew5 eggQu3IgOpHDNaivCkmGd ySNL9h6UqEa81 D12dUJufIXIqVRToRTPwG RWtoAkjad5mlA1iSc1+PC 2wi1dnvs05xH96tLS+PHR jVXD9rIbsGMrj FNMpnN8pDLovRqK9SSFiB aWjrW10fOBfKAfbKq6nvH xjfTykII2bYXCiccjoh50 3UpFcr4wxMJEp eEDsUSyxKOV4T88sc6O0J PNzIYNhJUZ9eMC4lO2gnY lnbjogbGVmdDsgdmVydGl fKChzZBdsX563 IHRvcDsnPlBhdGllbnQgT tUhTFg4V2CrEoi1YSIbmN oqQB2qmQTkRKbsPz2dvOj lkLwdFJ5qULDw garpq193QiSve2qrTJMpt UHsYJogBQH3K43ly6Q9QQ MeALNlVOZ5qUO4yE6mfCd nbjogbGVmdDsg wtYroXlaMShiNNmbB728L HRvcDsnPkJpcnRoIERhdG Q6CO78PZ63bQCal6X0cUY 5L4LgUTIgeiuc trxfaHU4PRSbQJXepS66F l8fzUrtFs9lOFYjXTE3JF JalWOfT4WdnY2lOnGoJTH kWFTtF9XqgUBv NUloV476ITxnAtF4DUKgr qVoW4QmJTGwnWssDzB7n3 A3Ou0WL6O8MM32AV83jGF jb4Q9tYG7I3Ew LVDzjazsflpmzIQ9NAHmV YLkxV62Tp9mbXdeGo1rRU RdLDO6CPAhrBYsQ5VfxU1 yOiAjMDAwMDAw B6XwdVAaLKxoA079HDzwV wF0DKAwllRbW3NzKIUupQ vcXpV9z6U4Po0NHTj3BS6 3YY31pJFqs6M4 yJH0G5BaPVUmpwjbjeelh NO6VDGhENNqsA67Kn4rqU wwJu9sLRNjGEY8VNNkbWM vK7LfyA2dHmDx VFEfVPBhM4BbsLVnDPkfC 757GMgdGzH1KBCusyBhM2 XoYRBorSioUrA3t5W4Mq9 XSNOnHU09PXF8 pXY0PH33KO94V3ZnZaclj GFibGU+PHRhYmxlIHdpZH RoPScxMDAlJyBzdHlsZT0 nKa3rHIXpRMKk uKxgfUQxIuIjp2bdFBDrC LsmQY5mbEhnU5BhvLB0LA Ztu7r4La32R83bS5UxfUH +RLQooHJ6cTA9 uY4vEwBrVtO8JYluI033L dQhbGDbDssrq2gbg5bakX h1IoZ3DHTsnfUwjDcjMPO 4t5ZkOu42C56q IHdpZHRoPSIxNSUiIHZhb Snldb8vyH9oGx9+PGNvbC Q3jGE2xB6bIbIfPkF6IQz uO796UqAihQXq Rxkqg7abw7yrkOh1BhXnO HZfjaWpcHsdPCE4o6VzAp 30V9YjqZrvp8FcTtl5yo7 5fFKar1J3mVZ3 H7GlWQGmdmicbITvaQyaB Y8pWNEihlvlBDVohZ8tQL AkM9d6FyTtGdJ2EUumB5C xzpI5CIMzcGGu DBaiLTN0F53gw7M4YMVyW SHpRPZ6hCV0jE7uqHxjmc ogbGVmdDsgdmVydGljYWw cCZkbA129NIQj iQntTVOsfY8tJTPkzUYki PhdOH2tNEVxbqokOjIEME KTUUlcGTMHV5IIWDtLTQE gRzwvdGQ+PHRk VKL6iXujJEmkOVXstX2cK OGfR6f8ZzLuBvG3YHuaW1 ImPGBeecssSq82cH0zGhC cRuD4CLjuA0Fz qwW9MHRhfLViGBrwTXH5E 24lh1V3YTJiTPMoIAS5xG F2oA1nwCtzsspqiUJfzBh gdmVydGljYWwt ADxyV175FZJwmDczUoKjQ oF4IjA7LYB3D0IaIaj8NA ZicOtdLG3oyBLeHIkkZv8 ewRzcaKniLT7y RBOucnyxEOVouI7vZLLgw CPsjCglMA9eCVCdmoobr3 02EvTlIWA9LUNmaJVvS3D toL7cTjAjQZGi REXlE4FruPLbLLccW515M UxcNdN9NULhxpPzR9GzXW PkeTlgBoP3q6Q9Ii8qDaV ZZWFyczwvdGQ+ CAZuCTB4tHbaBSorRTXap O7iRJTyY6h6JxLvOyF3HU gfS9FjEKKhwajxNi05tR1 uMpBdIfG1LAsk H9QtpvC4OFBiiVJeZJnuN SQ9W16nl0A0KINkFKLsUE I7mHO1hO1lpGcrldzpvWT mdDsgdmVydGlj BNdeDZbuV581FAQjnJlzV kZlbWFsZTwvdGQ+PHRkIH F6qGadUYimVOBisP0pTCO sR3n9YbUtAnO6 LGdqI3SpVHYajpxkQt68i D2xZeRqNlO1IRydQ8Koya M3TFRmtIUgZGugPJR3S20 ya6R3WLZvGBSo ALW1qVK3aN7mlByfuucia GVmdDsgdmVydGljYWwtYW nwY254BZZroUmwPrPfILP zRA5dwJhagQB+ WN86gb78G8VfVyuzWxt6I RMdECZ5wQC1cT7uRTHhNK pcq1I5mJY6S8KuxiKsjj9 oz2ugOVUyFEsm R05gaJZhh9B7YOOtuUE1F XRugMhxWaZznF07Ifj+PG DizJvys9PoMwuld7goc7y bqOy8JzPkJXJv wjFsqIppXQH8k9XgRy55R 29sIHdpZHRoPSIzMCUiIH TnqMkcko5owN0dMv5+PGN qgVP2kSY7hY2w RlKqOgD2KJlgL648AmSsm JFzYhfyz4lgd9fpmKz2Ou NvPQOkhnOftJuzEPL4p7P iSj23Z5IieHfm n1LsUsc5dh28cQNrv5Q1n BL8R1GtRGFcbozicWYbeO vgWS8xDXZepkepDPCikB6 cJDDxC7o1RzMa VeS0CYidE3MiwwX3HDEmn LHjPRBquKARvA9bfafyw6 osxzmuIzIwOEHlNQt9BSw 0LWFsaWduOiBs ZRO1JxP7TFE3tCOljD1ke LawzwltjW7eKny+UGh5c2 qutRYiGV4slEY2VU24DD9 8qFBnb9S6gWU0 I4SrUPRzjctvwdpuyHT7V LClCMYzzK27Og5rbExqVv 3gCCOqENQ9LWDuuRZdX0N npP7eWkZfXEGa XHCrC4UenYEgCOfuT234W XpaBxU8KGXvlsUxQ8SeZO IgzSchOvU9s2F9Sv4FCA6 4LU04AW81oYVn i1N9qID4X7PdTWSbpwqxc iojiGO8WXKyOOXblH32If 9jmLgaJu4lWZPsUZG1JQK zrECsN0IofV0y OuJfUZDaGFDeI5RstEKfD RylS506HRjjMuB5NCXqiy VxD2LcNFTwdXjfJfE4l2D 8Ky3BTe14MW88 HI20yZUie3U0dIH5X5UeQ LOevtdzxynrsHJ4DPKgRC ZtsQ02Oc4fyIitFd2fALM cKVR6CRDkqPUy W3YvhM4kWmRrUEBiAEHzW 6YjtMYhDEdxM535ACskAw B4AOAvpcMwS7OsUFOlrRr nWcQ0c0U4Gu3G QMcwudg4S7RvSxcigUJ+P I67LYYgZZ88sVGvfSFzm4 qinVb9SqAvDNStOXV4kEo fDIbpq4QkHEHd Y29s (more content not included)... Normal [facility] Coding Summary. CD:[id number] G h0bWw+PGhlYWQ+MN0HGQX aC75nhEDozK9QS5gWEO9C JXYOHKXRSV6VUM8dfDE0W IdiV1QctkSt TkiwgFVbUJ01XIq2SPO4x KfgYKaztM3qhINdF3n6Fa JoDC20oN39YQpeTAXjBuE 3LjZpbjsgbWFy G1vcPoXxqVRpUxn+PHRhY mxlIHdpZHRoPScxMDAlJy PcdLrtPX2yRz6rZPDdTZN vbGxhcHNlOiBj r7cjNIRaKEajKY9sbUleT 9MbzZQ5LFDvv9y2Zk22zX I+KRDmCEK4mWapRJuin64 5QmLgo6leVVG9 fXEgSGchGCG1L35rv6E7C BQaBTSdPVW9cSU3gN1ttN pxdnoyA6YamVWuOrN9WLO 7zJZfwS7uyDad dnzjlL1mMvm+F93YEQ1GA HHMVK9PWbc1O2EtYpiviM I+UB78CZVjUS34hBEfbYZ eq3gkuOi5KjPh LCHjQPZ9iArlSCqoo1GyH MKcA84rvQPss3I4KAHnuC skpMPgPxAimPF8eT4kSRx ecfakf7tdcxqi Zxuqd0savc93fB49I24nA IzoOFThVYI9PWRsPEXggZ vfxu5hnR3dIg6+FKydd8r sf3jmeYc3FnUy LQArlvCryZpwYHK3p3CvU z11Q0LcsHtdc0ZiFdq0ik 99bSVlu8C7vYC7NDjqPPW xkP9rCKhlBeS5 LMFrKhMukK92iLSyARahK b6uzZdvrImzKE8xNWKxng eiOVWcsM1hEYQlrFEabYn zIY6pFDIjsbie z157CbWvQAX8GEXtoHCpA 7MpxN5uYgGgUTZdZCGhN5 HyvWLvQAneN882SDhxKgA 0SQRjufWjO0Vc MDLrcIkmBhV2u7N1Hu0Fp 5EyhtebBNQ0LDagDRUoNb K3ZeJcFuT3T3CqJfo2YBT iqWqlOZ3uH5Uu FLZhzxjlzdyjmCH9CKPbE LDrrJ68gFHaRYhyEl1bs9 O2h210ILEhIONwjN36Mo7 udDogMTBwdCBU pB8jsptzm6rzpikfZfZrM TEwAGc9WUm2BPKhuTktLi HeZHZ1OfI0OMV8qQTwbK1 faFdsvsqxsM0c Oyc+H49mpQ9lFTI7UWD8f mooOVZcyjPfNV92QM40I8 RyPjwvdGFibGU+PGRpdiB vrXwsRV2vEdWn l0feh0MfSTlaY5PyDYDaH MbbAmu9TNGhAVH8hUC8iF 5aGESrGKmba2N1zQL4D9X mwhJmmd1ia3uo ISLaRYgoC03pfWCtj0E9N KLxsMF2ILKzpAutVmZqdI 93Oyc+TQCufNwqy3WyQgx wy0wuy0pfoYx7 NdIjJKNmkzFbaJnzRSP4c 7YdFw07C04oLCkbOWDlRI KmAMAlLQRuaOagms6ytR4 wIi8+PGNvbCB3 kJB3dW7uTNCrUwC7SJyoQ 017RdDdwVVgLdfil3wwb6 nnvRr9YvPeYYTkjcKtgOy aGLA1l5SyOj36 O00iTEjlSNSaLKUcXKKfV ATaxMqjav6qvH1pSc9+PC 9vu3ixkm00mR76vRF+PHR cYOY5sObdVEmq EIIolO1hNCasSyY6WTBqN aFxpY82cMTyAAxvKu2vvX ytcWuuPX0dBGBylbmcc02 0ZvDki1umMTEd wHHxEBiuOFB4W04mx4K0E ZFpBXFzRWK4uME0fF8kkD lnbjogbGVmdDsgdmVydGl tRStsOFvwL410 IHRvcDsnPlBhdGllbnQgT nGkQMl2B6ObBpd6XQNpbF hrIQ1pzLAbESooLz8dwUc evJnbUI9xLIVq ktwhb858UiGem6dcGXVrf GIvYQvdQWY4W79ek5X8FR QyAALeQTR2lRU7oU7dhGu nbjogbGVmdDsg toPwlBgsWXzkCVpaK502E HRvcDsnPkJpcnRoIERhdG H3TE23WU04dXYat9W2oHB 6M1UeOQJdbsfa trumfMY5SVFvSGPufW93R c0kjCfwBo3eMIIdKPS7EY DqcMYiD6BbhI2dOsCgNXK nZKNeF8JwtZCr DMfaH162QEevQwT8DXCkg gBlF3KcWUCzwAyaQcO4n9 E5Lw3FH4C2WX60QZ65vIZ zj7G1iVI3D7Vb JUIonejbxjcqkLA0CGDbA TVgdN74Ov7zrUeeWj9kXV IlIDB6TWOlcGZiU4DbgZ6 yOiAjMDAwMDAw G8WyhOEtEJnsK220LSbgX yP8ELBjroWiT9QrPIWpxI eeKbB6j2X7Jm6TYGa5DZ0 6WZ84vBRfz1G0 tIT2Y4WtWZJtcuqcqenmx RC8JSVrDNCssB77Df4opO upUg4jIUFiNAO5DRHgoJR xU3FqiV9lAnXi SWEtIPVfO3KxhLKkOWklB 430RDbuTbS5PHIvohSxO5 RiZFDnwSwoHdP5e3U7Yt7 UTAFdQB65SBC9 uCR7IV57QW84Z6PfErmya GFibGU+PHRhYmxlIHdpZH RoPScxMDAlJyBzdHlsZT0 eTd9nTYAhAVDl lNwdgANuSzDrf1fcXKUuI YgqDZ0fpYxkR7YccYT8MT Gxq4u9Ud40U12kQ5RciJY +RSWqlKP5wWB3 yF7cEuHaVyJ8NBbfQ613N eLmbMDqRlpzw8obl0gtnC b6CqA0CVKuknLptYhqVSA 9c7KhCy24Z44z IHdpZHRoPSIxNSUiIHZhb Kwgnj4msX4xZq2+PGNvbC U2qMH2uK1lHnNqAzJ5YVs sZ059CeBmzWUf Jxtxv6lsd6nvfXk5RcStG VOuysApoOutTGP1i9JwOm 33M6WbfAwbh1RzGjb7qr0 5uWIrq3Z1hIZ4 Q3IcDXGldiryjTRjjWvjN H3eYIWnodwuVNDctL7gIQ QiQ7n4LiCpJvT6GLopC3J joyS3SVFqdDVb UVxgHZL3H13gg2G7VUBdB SIiNPO4iTL7sF1bxTtrpj ogbGVmdDsgdmVydGljYWw kHJgsV605ULRe pOskUSOolW7eWCOcbVHqr EhnKF9tQGWzchfhWzUUCE NNMNszPDYVU9VTECaSTWS gRzwvdGQ+PHRk AEO8ePbjITgnYWZkrN3iY MUrG3c0KjScXaP5MTplR0 IpXFGdgjtcJg68tN6wCbL fYcD7PVjeY4Rf hjK3RRDdaVNdIGdfVAS4X 96ia6S8PBLsVVVlWNO1jW Z3lI8pbYdeoyzukFUijIa gdmVydGljYWwt FPezH335ECIlvUehAkUlA hE3NxM2WUT4L7EcQqu3DF DiaFwtQQ2qsXOyHRpbYl1 nhMjhwIsfFS4c DEAwmvuwHHWtbN5qAOVzx BZztWpzPF6vPSRsjtxrf2 76InBtVYQ2THXbxSXyA8W wmJ0tEvQnGAKy YMHnU6QnhCLmDRdzN640P MpvDfE0RHZexdJkD7DlES JyePphWeO2h3T8Zc8dTaK ZZWFyczwvdGQ+ BFYkYTV4cZzjBBwrJPNvg U8pPQHsC9w1HbHcSvU0TG btB9GhKYDmoocoDb47oW2 bRsJcBlZ2BQkq W6UxzjB8VONbxLHrAQscL MA0R64st2B2GKZvAQZyEW T3yQN0mN9mvEhftmfrzIA mdDsgdmVydGlj SUbfDYbcI167SXWkfQhkP kZlbWFsZTwvdGQ+PHRkIH G5eQetXJvwXVKrvT5tQCU wF0v0EyRyFcV1 SDmsW6ObBHNvmoqvKu03j W6yChQmJnE8QVnyJ8Fwdm A1VCIazEQgAEggRUB0B64 xw2G7NPJeTDGb FGS9oYA0uK7irOffokrva GVmdDsgdmVydGljYWwtYW lmW406NIRwpClrKcCuJJF bDR1oxWaewEQ+ LB10lb43N0CqTraqQtm5P BZtAKP9nAA5cP3kMMHlJY awj0H6dLZ7W4MlnvLsdm6 wh2jpRFEpXPoj I60mrHQao5T6USAycUQ1F POmjBvzIrOtbK06Vuz+PG FqwSyve4NzZwkey8qzi7q iqYn7WaOkINFm zcPedEuyQPM0p3NuRi10X 29sIHdpZHRoPSIzMCUiIH MhmCdppt8qxC8fNn8+PGN ovIK3zUC4sM7u CvHcItB9ONtqP466VaQzj TRiKrytx4eze1dbbWb5Nx KrFBHtshJsjGmiPKI1k8F yKt90Z6QolCpr v3OaDqf6ug83fDNqf1S0e EY8B6YjSUAonpbjeOVcsQ voDN1wUXPtzmhgUILbkJ1 sDNZbK9t2ZsTj DtM5TOniE2HagoS6TBVoy KWcLTRtmHZRsF2iexdzz0 feqcizFfZgHSSmTGe7LTs 0LWFsaWduOiBs OXH7XeC1GET9dDZdbL4cz ElmadepiJ7iPio+UGh5c2 ujgVAdFD4mrVJ6TI00QO0 2wWFko9Q4iHA9 G0EoQHMtrzlarnhypCT9R IZjUKSswL07Tb8ycZhxNb 6rLIOsKMH9AXZwtRVzD4Q bjC4zMjUlZBDi QVQdJ8IbjXDmLQwfX225Q KsiKxY0YIZnmzBhL7KbAM YrtUytBuZ0k4Z4Ji6EQF5 2US85GF14jOYv x4W4hNV0A2IxJVSocvczz hrbiEG2YEBtZUKvoG35Yv 0xoGmlNg2jNIWoCPS2WNI qmDApJ8TurU9q VeLbMHAiHOAiM5LsvUDcH WrxK531LUjlEdH0YPXgij GbR0LsBZLhnTbxCrG0y5B 3Fj8JTx05PN53 NR00zGBud1J5yUS5H6XqA BCkjwdnhrsjoYE3QUPbSB KhfI42Yp9evZplHt0qJEY uZWB4PADejTWk J3IslB7vQmRkZHLzAPCsW 1BxaBStEDpwB363XPbaUl D4AYMybzUbC7QyKPOvoOx eBuY0u6I7Yi0G JYubvyh5A3VyPzftyJY+P N99CKKxDA49aTVdtHOrl3 dkbDb4SkEyGIKyNAK9iEp yWSfqg5LkUBGy Y29s (more content not included)... Normal [facility] Discharge Instructionson Discharge Instructions [id number]# 1.00CD:127 Normal [facility] ED Clinical Summaryon 2022 ED Clinical Summary [place] [id number] ED Clinical Summary Person Information Name: RJ ELENA [facility] Age: 32 Years : 1990 Sex: Female Language: [place] Citizen PCP: Mark Pitts DO Marital Status: Single Phone: [phone] Visit Id: Visit Reason: Rash; Allergic reaction [...] 09/05/2022 22:58:39 09/05/2022 22:58:39 09/05/2022 22:58:39 ADDRESS: [address] [place] [address] [address] [facility] [id number] PHYS DOC NOTES: MEDICAL INFORMATION: Prescriptions Given: Medications to Continue Taking That Have Changed [facility], [address] [place], [place] [id number], [phone] START: predniSONE (predniSONE 20 mg Tab) 3 [...] Refills: 0. PATIENT EDUCATION INFORMATION: Instructions: Nate, Mjce-da-Mylv Follow up: With: Address: When: KATJA MCGINNIS [address] [place] [id number] Business (1) In 3 days 09/08/2022 Comments: Follow-up for further evaluation of your urticarial rashes and reactions. With: Address: When: [address] [address] Business (1) In 3 days DIAGNOSIS: Allergic reaction; Urticaria Normal [facility] ED Note-Physicianon 09-06-19 ED Note-Physician Basic Information [...] that she has never follow-up with an canvas shrinker before. Denies any chest pain. Denies any [...] and Complexity of Problems Differential Diagnosis: [] [facility] Data External documents reviewed: [] My EKG [...] I do want her to see her canvas shrinker. Discussed return precautions. Follow-up with your primary [...] Once, # 1 kit(s), Refills(s) 1, Pharmacy: [facility] (more content not included)... Normal [facility] Comment on above: Result Comment: Elec tronically [...] Being allergic to foods such as: ? [place] fruits. ? Milk. ? Eggs. ? Peanuts. [...] at home: Medicines ? Take or apply hcct-twm-bxvtlnh and prescription medicines only as told by [...] causes your hives. ? Take and apply mdte-qil-uzdzoyz and prescription medicines only as told by [...] Reviewed: 01/09/2019 Elsevier Patient Education ? 2019 Copious. Normal [facility] ED Patient Summaryon 023 ED Patient Summary [address] [address] Patient Discharge Instructions Person Information Name: RJ ELENA Age: 32 Years Arrival Date: 09/05/2022 21:00:52 Discharge Diagnosis: Allergic reaction; Urticaria Primary Care Physician: Mark Pitts DO Provider Information Primary Provider: Quita Clark DO [employer] Supervisor:None The exam and treatment you received in the Emergency Department were for an urgent problem and are not intended as complete care. It is important that you follow up with a doctor, nurse practitioner, or physician?s dam tender assistant for ongoing care. If your symptoms [...] Follow-up Instructions: With: Address: When: KATJA MCGINNIS [address] [place] [address] Business (1) In 3 days 09/08/2022 Comments: Follow-up for further evaluation of your urticarial rashes and reactions. With: Address: When: Mark Pitts [address] [place] [address] Business (1) In 3 days In the event that this physician does not participate in your insurance network, please consult with your insurance company to find a nearby participating provider. Patient Education Materials: Hives, Kzbm-ho-Ruie A MESSAGE TO ALL PATIENTS REGARDING OPIOIDS PRESCRIPTION OPIOIDS: WHAT YOU NEED TO KNOW Prescription opioids can be used to help relieve avogyagn-rr-rndxwq pain and are often prescribed following a [...] risks of opioid (more content not included)... [facility] Monitor Recordon 09-06-2022 Monitor Record [id number]# 1.00CD:127 [facility] Consent for Treatmenton 08-11 Consent for Treatment [id number]#1 .00CD:127 [facility] Discharge Instructionson Discharge Instructions [id number]# 1.00CD:127 [facility] ED Clinical Summaryon 2022 ED Clinical Summary [place] [id number] ED Clinical Summary Person Information Name: RJ ELENA [facility] Age: 32 Years : 1990 Sex: Female Language: [place] Citizen PCP: Mark Pitts DO Marital Status: Single Phone: [phone] Visit Id: Visit Reason: Cough; Diarrhea; Fever; [...] 09/04/2022 14:23:43 09/04/2022 14:23:43 09/04/2022 14:23:43 ADDRESS: [address] [place] [address] [address] [facility] [id number] PHYS DOC NOTES: MEDICAL INFORMATION: Prescriptions Given: New Medications [facility], [address] [place], [place] [id number], [phone] brompheniramine/dextr omethorphan/PSE (Bromfed DM oral syrup) 5 [...] Infection, Adult Follow up: With: Address: When: [address] [address] Business (1) In 3 days 09/07/2022 Comments: Return to the emergency room if your symptoms get worse or any new symptoms DIAGNOSIS: 1:Upper respiratory infection Normal [facility] ED Note-Physicianon 09-04-19 ED Note-Physician Basic Information [...] and Complexity of Problems Differential Diagnosis: [] [facility] Data External documents reviewed: [] My EKG [...] for cold symptoms, 200 mL, Refill(s) 0, [facility], 160, cm, 09/04/22 13:15:00 EST, Height/Length Dosing, 85.6, kg, 09/04/22 13:15:00 EST, Weight Dosing Influenza A&B Ag Rapid COVID Antigen ([facility]) Disposition Plan Patient Discharge Condition Stable Discharge Disposition Discharged home Discharge Prescription List Prescriptions Bromfed DM oral syrup, 5 mL, Oral, QID, PRN Follow-up With When Contact Information Mark Pitts In 3 days 09/07/[address] [place] [address] Business (1) Additional Instructions: Return to the emergency [...] Current, 03/08/2019 (more content not included)... Normal [facility] Comment on above: Result Comment: Elec tronically Signed By: Solo Kimble M.D..br\Date and Time Signed: 09/04/22 14:20 EST ED [...] to help relieve symptoms, such as: ? Zfkv-vsl-zevimyr cold medicines. ? Cough suppressants. Coughing is [...] other clear broths. General instructions ? Take syth-xne-bgvydxy and prescription medicines only as told by [...] and water are not available, use hand regional operations director. ? Avoid touching your mouth, face, eyes, [...] common infecti (more content not included)... Normal [facility] ED Patient Summaryon 023 ED Patient Summary [place] [address] Patient Discharge Instructions Person Information Name: RJ ELENA Age: 32 Years Arrival Date: 09/04/2022 12:56:58 Discharge Diagnosis: 1:Upper respiratory infection Primary Care Physician: Mark Pitts DO Provider Information Primary Provider: Solo Kimble M.D. [employer] Supervisor:None The exam and treatment you received in the Emergency Department were for an urgent problem and are not intended as complete care. It is important that you follow up with a doctor, nurse practitioner, or physician?s dam tender assistant for ongoing care. If your symptoms [...] Follow-up Instructions: With: Address: When: Mark Pitts [address] [place], [place] [id number] [employer] (1) In 3 days 09/07/2022 Comments: Return [...] opioids can be used to help relieve tbnydyle-jp-vhpcak pain and are often prescribed following a [...] care p (more content not included)... Normal [facility] Influenza A&B Agon Influenzae A Ag Negative Normal Negative [facility] Comment on above: Performed By: #### 2 [id number], [id number] #### [facility] [address] [place] [address] Influenzae B Ag Negative Normal Negative [facility] Comment on above: Result Comment: Test sensitivity and specificity vary for age group, specimen type, antigen types, and prevalence of disease. Test results must be evaluated in conjunction with other clinical data available to the physician. Individuals who received nasally administered Influenza A vaccine may have positive test results up to 3 days after vaccination. Performed By: #### 2 [id number], [id number] #### [facility] [address] [place] [address] Prescriptions/Work Noteson 0 09-04-2022 Prescriptions/Work Notes [id number] 1.00CD:127 Normal [facility] Rapid COVID Antigen ([facility])on 09-04-2022 Rapid COV Int NEG Ctl Pass Normal [facility] Comment on above: Performed By: #### 2 [id number], [id number] ####[facility] [address] [place] [address] Rapid COV Int POS Ctl Pass Normal [facility] Comment on above: Performed By: #### 2 [id number], [id number] ####[facility] [address] [place] [address] SARS-CoV+SARS-CoV-2 (COVID-19) Ag IA.rapid Ql (Resp) Not detected Normal Not Detected [facility] Comment on above: Result Comment: The [employer] System for Rapid Detection of SARS-CoV-2 is [...] or revoked sooner. Performed By: #### 2 [id number], [id number] ####[place] [address] ADMITTED TO INTENSIVE CARE UNIT FOR CONDITION OF INTEREST:FIND:PT: NO Normal [facility] Comment on above: Performed By: #### 2 [id number], [id number] ####[place] [address] EMPLOYED IN A HEALTHCARE SETTING:FIND:PT: NO Normal [facility] Comment on above: Performed By: #### 2 [id number], [id number] ####[place] [address] FIRST TEST FOR CONDITION OF INTEREST:FIND:PT: Unknown Normal [facility] Comment on above: Performed By: #### 2 [id number], [id number] ####[place] [address] HAS SYMPTOMS RELATED TO CONDITION OF INTEREST:FIND:PT: YES Normal [facility] Comment on above: Performed By: #### 2 [id number], [id number] ####[place] [address] HOSPITALIZED FOR CONDITION OF INTEREST:FIND:PT: NO Normal [facility] Comment on above: Performed By: #### 2 [id number], [id number] ####[place] [address] STATUS:FIND:PT: Unknown Normal [facility] Comment on above: Performed By: #### 2 [id number], [id number] ####[address] [place] [address] RESIDES IN A CONGREGATE CARE SETTING:FIND:PT: NO Normal [facility] Comment on above: Performed By: #### 2 [id number], [id number] ####[facility] [address] [place] [address] Coding Summary.on 07-28-2022 Coding Summary. CD:[id number] G h0bWw+PGhlYWQ+GN0GHER hY29yxUGvfI1WA5qWCZ9H YCJQGUFLET6RHI3kpOD7T HycO8WxhyYu QdrstYAbJD27OKw8NSU9g ClaQIschT5wxMYmO1q6Oz EnFA40iU31UUneREIqZiM 3LjZpbjsgbWFy R2mpPuKnqPEkExc+PHRhY mxlIHdpZHRoPScxMDAlJy NgjTeuUK3oEv5pBWDuIZW vbGxhcHNlOiBj g7twZCNkMOidGZ8xaIdoB 3GnfJD7ATVod6d0Dg44gG I+TXLyKSE5xYupKQbfc95 4PuTbk2jzBEV7 eGBeGOpnADM8H37ft4V9O EHmTALaOOE2rLH4kR8fcZ bfefevE3HydJAbBvO9TXA 7yNVkbO5apWse paaqwQ1hDtg+F40WOE1AM CHNVJ0MUpj7S3PcGctgzH I+AO59EVBsDU81wNFfnMJ yt5cnnOn3WoKk IDHdPFK7rJffTZnby1GdE IYmQ25ykYZvi6D1OGQonT calOUzZxDhrSA1sX6hPPe auurgs9uoexae Abvdy1gaul50nM66X59zE UtyBNJtBPW3VTWzCPJziF dhnm5umE8nRf6+YVpxl3l np3gnlWk7WaCb AZSdyxDdwFbwDIZ1e8WeA r86K1YmvQadn8OlGhc6wk 96uTGnu4F7lAV1IPecBBL caW6dSGgaGrL3 VROqDmJvsZ24cWCuAZuuR a4jdVpwbHdvJP5nDCKixf swTLJxcE4fKEQckLSoeFl gMX9dRVNzlrjz p388ZlBsPRT2LZChaYCgR 5SmzK8iZpMuHPHnZVJdU0 KxbKCoEOjiM647VKtzAnB 8WSLvghHlL1Le CIFxeHhvVgQ6o6S3Ao2Wu 3NrlrynLEX6ZXpmKCUgEb J9IsHrHrF7I0KwNck4ACD mjKotZZ8jD0Az QUXfptjaogbmrZH8MMZtL BTniA39oXFnVIjlBn1sk5 S8e915NWIgDZYxcT06Eq0 udDogMTBwdCBU xF0xvhosk6jksehfNoBpG ESkCKs5HTx0HHWiqOonZg OqQMP2ZbF3YDI6wRBcwM8 piFzxekwisP7j Oyc+D10hbN1aGYO8CLG1n irpHUYnhcBcHL55UL79Z9 RyPjwvdGFibGU+PGRpdiB zeNutGP1nJjPe a9qtd2DzKTskU0NaFKMkY VvjEkr9TOHrXKU5uPZ9oN 0zHRWzQHdmv5G2sBB6J6O afzSxma1hb6ma KHImLUdtL07smGZdc8O9Q FScdLL2KIBttPsmQnPfnY 93Oyc+QLBzgScsb5ZxTkg tk2rju2qgfRz5 RmVoPDJyziKbvCkpUMV6j 4TlDh26A43tKAfxWPJxPX VdHJTdLMFfhFdtbn6wiI6 wIi8+PGNvbCB3 dJL3yP4qJEPqNmU9CEttH 582CaLwaJAaMzikn3kfo2 rttIp2DlFdLNMmyaXfwJw gETP4x3TgBm12 H40xCXexXPElUGZrHUYyR OBkoHoeog3pbZ7zVt8+PC 9rh8ocga41aZ75zAD+PHR qHXX0tYkxEMol DHHzyW1nEKzuEhT4NXTzI bQruA94lTPlDRifVj0obX nbgEgqHZ1aUKZisstim18 5EcEms4pxZNNt iNYyBSjgJFF3I00yw9M6R WBhXCGcPMI7vRX8yE6hdP lnbjogbGVmdDsgdmVydGl aIJniFWgtR210 IHRvcDsnPlBhdGllbnQgT lVwUQn6J7EuJpg2TLZrqS ezNO9ezEGmBMpsTr0cnYv axFldDJ6xAWWb gzpwe191JlOyf9rvTEBfn WMbMJadRSC2C48wn8H1UL MnAGYfUMX9zSO3rO9nuDe nbjogbGVmdDsg rkNaqRlrCErwFMpqA355L HRvcDsnPkJpcnRoIERhdG U0YU63CE70zGFqa0U1sBN 8K5LqVTMqabby jyrxySD6KRPsRVHgwK84P j9jqUosOb1sVXJeFMJ7UR QicTOmQ8EwdQ1nGqPlIBT mIGRoJ9UpiJEi XPpoD476WKzvSyE8UCYpq yCmA1QpXQQdwBtlLgA1i9 K3Ir5DM4Z0UI24KY28jZA um6R5tWN0B8Zj RZErztxoyrlsoWI6ZDKtS XYsfF96Fb9kyFjzRf5dIB JtKNU0VOXgaBVcC6KdtT9 yOiAjMDAwMDAw U4SoaNJoLGwtU904THzzS oG4OKKhivBkH9WlVMPgyW wwZoB7v1D1Mj5MLJv0LO7 3DP25sFXgq5Q1 dRR9P6PfIWRcjnqiyrjdt VS9PUBeEHCwjZ43Pc8snO djLo5zUCDuNQB8JDBadKI bK6KvdY9cAfLr JQPdQIIjV3VlrCBwGJgnR 940CGwnDxE3QXKttgKzM1 VkHNAmlLxvXpL2h9S9Ou8 ISTTnWN64CSF1 dRV3RR23TP21T4RcNfaay GFibGU+PHRhYmxlIHdpZH RoPScxMDAlJyBzdHlsZT0 oFh2hAWNiJXUl lHvkmKUjXnPps9qtBETqM YifGD7ecJcgF3FyiAY9GP Yym7n1Lo26F41wI5MpfTP +YVPmgZM8zZR1 gP1rHqQxHoJ2UVriV583R pKuzMTkHybtz1jos6kbuF r9FeF9CHOvrxTaxMncNJZ 9v9ApJt13P23n IHdpZHRoPSIxNSUiIHZhb Oqvih9ydM3jDv6+PGNvbC N0qGL9sB3bGgVqTdK6BYs jK599CqBnyMYs Klhfw6bgg6buoTg6YzRyC LDhheYjfXrhTIF8m4NdAr 89E7AwoLuwg0BnTiw6li2 3nODjm3W0yNI4 S9LuRJGqyfjibGYluMdsM S5uUUCwopgiZSNbwA0ePI TsX1u1JoOjViM9SHsbH8O gpuI6UUJazJSq RJqbPPD6W59dy3V9LUXdM RNuIOY6rVX8cO8zrAtuno ogbGVmdDsgdmVydGljYWw fGKwaC378IJNt wMlqKALqbF8pIYIxoFDaa IwdHN4lBGWcudlfJwGHNO AWGHpyJBDZJ8SDRTqMJLB gRzwvdGQ+PHRk LCJ9zTrqCAmhCKXajZ3qR JFhH5h0EkCmOfA6FIfcU3 RxCBAynqkjKn10kT3zFjN vSdA5BBiuY2Zh qpM3NPXsdSMaAJtrDEQ6G 67fy1F6LQQqRUTjSZZ7iL A2wH8axCsobzztvBEqqPz gdmVydGljYWwt YLnjO327ZJAktYvdQzWfZ bO0HtI4GYT6O1WjGga6WA CzdBupUH8xdPIhQTnuEj6 vaKzfhZoxQA5g GKOfuqghVAZhlP3jDCSav NYtyUpgBC6eJYSufhkzu0 68EgBgIYB7PTUikZIjS1O wdX7gYnOhDTHu VYCsF6RunUPxSUhwZ515I JzvRtD1RMZfcwJqJ3KrBL PttCmyXcY1q8R2Ko8oSpM ZZWFyczwvdGQ+ TEVnALH4pFbbZNurUSBkf I7eLNStF3s8AuXrYcX7EY ldR3ZaLFTojlvtRm24pA1 uVhUdSkL4SKvn V3MqcpD0PQYffUQbXImuW PY3V52gw4C6NPPlIDWySZ K2wUW8mB9zoCtalhwioGE mdDsgdmVydGlj KMhsELboY712BJGmoZrmU kZlbWFsZTwvdGQ+PHRkIH T5qFhsQIcuFMKvtW9nUXV mI5c9MsGfQeP3 NErlY2QtGBRagyrxDa24n K4aXnBzBcD7PYzmQ4Lydt A2UWCbsJFgVKpoNZB7E87 nf9D0JVQvUKZq DUN3qBW2mS9osLpitruvd GVmdDsgdmVydGljYWwtYW zcX029NHOshXwjHqJyCGC fMM0lmMnznRZ+ ZD07aw60H8YvQaniRow8D JInSFN3jKP9cN0mTOToCY bkn4L0sVH2H6RjbtYlac4 rw4qnUYYdKYtx I61zvHJdf1A2HIQhpFL3I FTdsDumHpYcyU32Dkp+PG XokVgyq4OvVjfvc4ata6k meHv8XpXsFXEa guHpdImmBKR0i5PmXk48R 29sIHdpZHRoPSIzMCUiIH OvaCqnmd6amA4vXt5+PGN unYV5sHG6lE8n CpMxKxJ0WCacC761TvEcv MFzNpigj9kit9lgeUu4Ri VcVZPupaMvfMobBGZ0t8W fRo35W7ZshYzo s1YrVaq0gh33wSUyo7Z6a BA6W0UkMVScagpycGDiyV ngCY8pQLXibdvqPKUexN7 eZAAfO9p1GbWs LlZ6AKqoL5MsdtP1XROru PZjOUKftFBFdU5lopkay0 hynvkpDaFyWAYjYBc4LIi 0LWFsaWduOiBs RZH0DuM4PIN5zLRnkF4tf EggyauliC1cSnu+UGh5c2 bitHPoEO4hqDH9MV46QX7 2xHAal0R3tTF4 S4YpOJHdehoeunkuqML2F RBfVMXejQ14Pc5jsWwjDf 7eKMCmHPL2MRAsxTYtS7W kaG0iTtRaDWEp MXEsV0TcwRZvCLcrI468R SweQoL7UJMkhnFgY7BgNM VekGofJyD6x5B8Gj4OIQ7 9QQ18BZ90wENw k0F2eEJ4Z5JuPNVjboaps fmbzKE0YHEsXOHxvE90Un 3ddWcoVv1qVJWyFBI5HKH ppSWxC4UpiK4i JbAnIILfXNRlJ1RetOZlQ VzjM264DWgyOuA5IHJcfl AfZ1OnVJCzdEbpLkF1d8N 4Pf7LZv17ER72 ZV50hHZox3L3yRX0K6UfL WYjtttbojwfaCB6FXFmQM HtvC49Ah2myGzvQh2iBTW xXDH0NGQbhNSt Q0BtbF8bSmQcQUAaNISuG 4ClqPGaKLocL661PQhfEt I5NEIodeLiS4WuHTIqlVx vAxY4b2W3Ur3W HSqqlwf2R1YmNrkgxHD+P J56JEJbCT87oOIquZLni1 wzfTs0GnEfZHHaJTA0hWp rDQgde5CrUZSa Y29s (more content not included)... Normal [facility] ED Note-Physicianon 07-28-19 ED Note-Physician Basic Information [...] My Ultrasound interpretation: [] Decision rules/scores evaluated: [place] ankle rule, cannot rule out based on [...] Mark Pitts In 3 days 07/30/[address] [place] [phone] Business (1) Additional Instructions: Patient Education Elastic Bandage and RICE Therapy Ankle Sprain Attestation Patient seen and evaluated by the physician dam tender assistant. Attending physician was present in the emergency department and supervised care. This visit was performed by both the physician and an APC. I performed all aspects of the MDM as documented. This report was transcribed using voice recognition software. Every effort was made to ensure accuracy, however, inadvertently computerized train operator mistakes may be present. Appropriate healthcare PPE [...] 1 tab(s (more content not included)... Normal [facility] Comment on above: Result Comment: Elec tronically Signed By: Juan Ott PA-C\.br\Date and Time Signed: 07/27/22 12:06 EST\.br\Electronically Co-Signed By: Saúl Gaspar MD\.br\Date and Time Co-Signed: 07/28/22 07:23 EST Consent for Treatmenton 07-10 Consent for Treatment [id number] .00CD:127 Normal [facility] Discharge Instructionson Discharge Instructions [id number] .[id number]:127 [facility] ED Clinical Summaryon 2022 ED Clinical Summary [address] [address] ED Clinical Summary Person Information Name: RJ ELENA Calista/[facility] Age: 32 Years : 1990 Sex: Female Language: [place] Citizen PCP: Mark Pitts DO Marital Status: Single Phone: [phone] Visit Id: Visit Reason: Ankle pain-swelling; RIGHT [...] 11:34:49 07/27/2022 11:34:49 ADDRESS: [address] [facility] [id number] PHYS DOC NOTES: MEDICAL INFORMATION: Prescriptions Given: [...] Ankle Sprain Follow up: With: Address: When: [place] [phone] Business (1) In 3 days 07/30/2022 DIAGNOSIS: Ankle sprain Normal [facility] ED Patient Education Noteon 07-27-2022 ED Patient [...] your activities and whether you should start hayje-fo-bwhzij exercises for your injury. Ice Ice your [...] 12/16/2002 Document Revised: 03/16/2018 Document Reviewed: 03/16/2018 [employer] Patient Education ? 2019 [employer]. Ankle Sprain An ankle sprain is a [...] the cau (more content not included)... Normal [facility] ED Patient Summaryon 023 ED Patient Summary [address] [address] Patient Discharge Instructions Person Information Name: RJ ELENA Age: 32 Years Arrival Date: 07/27/2022 10:09:44 Discharge Diagnosis: Ankle sprain Primary Care Physician: Mark Pitts DO Provider Information Primary Provider: [employer] Supervisor:Juan Ott PA-C The exam and treatment you received in the Emergency Department were for an urgent problem and are not intended as complete care. It is important that you follow up with a doctor, nurse practitioner, or physician?s dam tender assistant for ongoing care. If your symptoms [...] Follow-up Instructions: With: Address: When: Mark Pitts [address] [place] [address] Business (1) In 3 days 07/30/2022 In the event that this physician does not participate in your insurance network, please consult with your insurance company to find a nearby participating provider. Patient Education Materials: Elastic Bandage and RICE Therapy; Ankle Sprain A MESSAGE TO ALL PATIENTS REGARDING OPIOIDS PRESCRIPTION OPIOIDS: WHAT YOU NEED TO KNOW Prescription opioids can be used to help relieve ghirpezm-so-toyjqn pain and are often prescribed following a [...] be struggling with addiction, tell your health manager critical care and ask for guidance or call [employer]?S National Helpline at 6-006-961-HELP. v Source: (more content not included)... [facility] Prescriptions/Work Noteson 0 07-27-2022 Prescriptions/Work Notes [id number] .[id number]:127 [facility] XR Ankle 3+ Views Righton 01 -18-2023 XR Ankle 3+ Views Right Exam Date/Time: [...] MD, V. Transcribed by: ESTEVAN Technologist: CHARLOTTE Pendleton [facility] Coding Summary.on 04-18-2022 Coding Summary. CD:[id number] G h0bWw+PGhlYWQ+GM9ZGYW sV13ezPYrwU7PV3vECB3F KOLOXEDVOE0WCJ6fiZM6C CoaE8TqecRq YseezXUbZW02OUy4BHJ0o NfjJJimiM8otHMjA1c7Gy IkXC12tC99TFpnYAVcIbV 3LjZpbjsgbWFy U7nwFqPhnDOvBor+PHRhY mxlIHdpZHRoPScxMDAlJy MgsEwlYQ4eMv6eLGPnXZJ vbGxhcHNlOiBj m0xoTHCxSAruTV9byXzrK 7DcfRL1RJQvf8x8Tx98uU I+SASgPII5sCtwRBazc81 9GqAmm8ihCNI4 fDKtVPllMNK9T87gy7Z2M AChZETwMJU7tTX9hO8xiS urxfpcC7YlcTIbNiA5XDG 6iVSbhQ0adSbh fpofmK0cOyl+S68IXO9KV OQMYW5PZbd4V1FmFbopbB I+SW60ZQSaAG59mMAplAN bi2mxpMj2AaSf ZVDsMTA2xBsqZVele8ZzJ DKvF05ejWZih5N4VKXjwX dcoUWeQmNaoTE8oY9aPOi pebtxy4ksdwmv Uejlv3muaq52tQ64J46zJ DooUDGyUCL3IBBrQTMviI rzqb7lzI0yVw8+WRlyh3f od4xhzHs6QiAi LSBntuIqjAlbWEB7n6WpC f36H3OtqSnwi7GiTtp5et 74xDXrl7H9wRD4DVzqTVN okN7kTBnzLtI3 CFXzEkRukF06aQJtZVycQ y5mvFfucRadQW0nCITxgf gcASJsaE1wRIJipSUkyYg cKQ1zPMCciwym z811XaPyRDZ5UILieLHyK 5XhyF2uEkHxYYKvMQAlX2 GwsIGgVIuaM656ZFwwZjD 4XNZxidXjU9Up XRTncQxhEuW6i7P5Vb4Km 8GqkrxgZQC1RDdzPJNsBf EdXgEuLiA9C7UxUlq5JAW zzPsjDL7gX4Jq LFStjvcutyiyeUD1FMJmD YXsjG67yRBoLGwyUj2mm6 V3b596QSPgVJXahT11Ak0 udDogMTBwdCBU iI5tkwscx6juoyjoFcOoV XZgDNy6XQh2QTZecDfpMv VpVXI0ZkI1RUW6uZFwdE0 utMmnyfchrD0x Oyc+Y01fhO8eFRF3XEP5p wfuTILqpbNgMG51ZS79R0 RyPjwvdGFibGU+PGRpdiB qkTywWP4xKbBk w3qvx1TxFVrjS9TlPECzA DrcOvz8YQHhNSC4kYQ4gH 7zDRLjQWhob7Y9lQW9V0W jbrAawr0ss1qi EOEiHHolO13zpUJzs7P9V UIpnPW2KXVvvGoeAvPskW 93Oyc+DBLipBqie0OsEzf fd0gpk7ourMn6 QbTxLOIrecVybBngQTU5y 7LtIi05J46pWKauOCSeCD RvAJGvWIBddHurmg4iiX9 wIi8+PGNvbCB3 uIH5gS1rDWBmJvG8LUcbK 956TwQreYJgUxuzh1jyw4 todIf6SaEiMJUzpwGneJq cKIV0s4GyWg94 H75aOZwiLUFfZGDtVQNwV LQrqYvxap2ayQ3eQd4+PC 7sn6ylkc29uT53qFO+PHR aFDI6mRapHEcl PJHrpB6zXNcjCxH4LBYdO pKckJ67eENuCZbtRb9yrV rjmVfpIX3rVJMifklnh04 4JaGng4rnNUQh nJDmUJotAAA1Q01kj4W3N NPoTBMkEFK2vRF3nD5gmQ lnbjogbGVmdDsgdmVydGl pQIvyJTzfI465 IHRvcDsnPlBhdGllbnQgT vSpNGx2V7BeHyi4VHHtzL niCL0lmKFoWXoqNg8hbYr jdDttAY6dWYBi ioryu739ImBxv6eaEFQkc NWzBLenZZR1T98di6K2IN OdJFTtWYN9oGM1lY3agGo nbjogbGVmdDsg qcVxtGufEIqjPHjqK418D HRvcDsnPkJpcnRoIERhdG N1OF85TE74wHPex5X9wKZ 2K5LuPDYlfvps ajjhdBQ8UATgEYTiwO77Z u1akKfaZl7eFFHqKUU8LX VtrVNhY6KxkR6aDzYwDGT zVAQrJ0AulGVy MXcbU455NIulFoM3DQSkf tJeG4XbTEAnsQzvAfS2e2 U9Bj3QL6D7MO82LT94iRH he7J5dHQ2N3Bw IFFcqitbzobvgJK6UKFxV LPzpA41Ny9crMlqYy9pFD GcEAK0EOWuhCQtD4UusN7 yOiAjMDAwMDAw W6PvgNZyXFvpP550YZwuK nQ8JBFlxyYgS7AmHZHmvO jwEuP7j7P0Jh1WIRl1NE0 0UG90mSEff8O4 xTJ0G7DtTDUzbybxpqydf DW9TMLrQMNyqD29Jl1mxM mzPf1pEQWgXMU9UWSsbHI gH1WmtS5xNmRy AJBxNOIxZ4OrbRUmTFegK 485VYisKaC8JKZbsiHlA9 FuJATdqMrvZvC6h1V9Ww7 RBHIxRJ79KCF4 qXK6VS93OI26X9IuVmfeu GFibGU+PHRhYmxlIHdpZH RoPScxMDAlJyBzdHlsZT0 jSb5cBCUsRRJe tFyreTYxAfCoz8otICZiY IspQD8miOetP3PtkVK8VB Cgk9x3Fr21Z27tM6KzyCM +KOSloNF5bMV9 eU5uTrEpFdH8EDvaS059R nGlgWJfNwfii8kll0zprT g7YoI9GSAwvvZebDxeBJN 1n9ObRd85M92q IHdpZHRoPSIxNSUiIHZhb Pvyfj3tyY2lAh9+PGNvbC G1aIU0yR5nJdNwWjP9OWb kI529EvMfoNWl Anlqr2pdg3bqfIs4KmQcO DNtivOibGizMZC6o5VgSp 66F3UvjLzqw1NbYfy9ph0 9oNQhx9S7uND3 V2QsKZSxwyzwyHEfkXvcR T0jDTWhqejaKMKhpP7sPI VxW7t3WoFpDbL8ZRpfX4G gngM7KKAirAZo KDlyVEX2A04rq0A6VUMrL GQnMIR5nCE3iT0lyVrqlf ogbGVmdDsgdmVydGljYWw bJAocQ770AVCx mHkpVNUlqN1uQGYqaHUdr FcsKK8qFWBglyilDmWJNJ DSVPpvKUVYE3EETIgTYRO gRzwvdGQ+PHRk BAI4rJdwTEbtRZJhmF0uZ MLhL2b4ZgYjWpH5HRhoW4 KzKWTjmhjhRg81bI5rHhO tZtN4UFvoI9Vx wwD3LPUcjJVtWFiwPJJ3D 28ty7S5VMWeTIVvCQW6oA F1uC4ejNhezpshfWVrpWc gdmVydGljYWwt RIqeA365HVQhbGxtWsTyW hQ7AfB0NNA2X7GmObw4OS YefCdlTP1ogTZlSNytOq3 ykGvxbXepIU0z COPzoonuHTSbdQ1iGHWau XDexDypEW2gEMWdjtmjt7 97MhXwDCY4TQQtiDSrC9F ysG5oOkWiKHJi GTDxA7EszDDjACgfX501Q KqbFuP9XLJmhxPgS6WyVF PyyTbrXqD7e1T5Dw0wBeR ZZWFyczwvdGQ+ GLIpLJD4rMhpMNsaQHHfs F6sTQYfN3k3CiLfQcF1JN ukK9DsXFJunmzvFv58tL2 mUqItGsW7AIux Z1JhnqY7OHOnbPTsZKlpP LP1U08ma8R3QZDtUZShIB O7eHN5nJ8ylOolpwlsmHW mdDsgdmVydGlj QRltPWwbP481QPHqoNijZ kZlbWFsZTwvdGQ+PHRkIH T2cVmcJLjmSATaaL9xAIQ aB2m6YvHyQaI4 INzrO0LxHSGbjwqqZy84x V6wJtGnMfL4USqpN4Wmbj U7NSRncFZiMCpmFGX1E22 nf0U4TLXkXDEk CZU6nSF8tH4lbAnppqked GVmdDsgdmVydGljYWwtYW cjV531ZQRevAapToKtNRL kVQ6dsJnzsBS+ FJ10eg18P0WrIebwYxc7R AUsMCU4cGO0kN8lGQBnQH wep4D3eQP3X8JdpzXyrm3 rj6wqJMWhUSca D00huPTyf4L8ZUOdsWM3G JFjpKgeUbYmfB37Ykw+PG LgaRhbg8EfKxwqa8bzd5b mlEe4EiCnXIRm idKlkEbaABQ6f9QkGx90F 29sIHdpZHRoPSIzMCUiIH CdpYxaoo5ceY3lRg8+PGN daRY5aYB0rY0r EpBpRiK9QThsX042RsEck GCbDjecf1scq2vlmXt2Ci VfQLBbwiRmcUaeVOU6k4T mOj26R6BqdIpd p4UvWuz7ux07mKYho7B6p AJ5B6RqPYQqevujgUHtnL tnLR6tLZNbrccpNDOjqU6 gOITdW6a0QuIf QbM3UDoqZ0PownQ1OZFgh KXhFBIszJKYdW4pdvnpe5 wtapfdGbGgWFYgOPl7AVr 0LWFsaWduOiBs RWP4HzW5KYU7sCZokL7te EcdqaadnJ2iJvd+UGh5c2 wstGNiMZ8oaLO7ZF88SC8 0hGDpp1X9bKA0 R9VkWIPdzakynlpkeDY6Z DXmRAPyyE38Ja7wnNcsCn 3zTUMkQKU2FYEggWOsM4L gdK4yGsZbLXHn MEUkT8ZikNQiDNzyB630F TcnWeS2XWVhroDpW3SjAA GahCjcMnG9h0Z2Ur8WHG4 8EQ42LQ87aITj r4V6wOE9D4TqTJYiqxbel eoloPK8FDSaSKTkfJ78Jj 4yaSsdEw9rJCFoTSP7AEQ ytPXcZ7AdcW5o UvGlGELkSTQgV7JfjBNuV QeqS847HShqIlR7OWXncn AwN6UoVHFxvYijQzW4i6H 4Xr6UYp41XQ84 II17bRSwn0L3eFW2O1QzE RUfbkyvapfoyRM7ZZQlMH XpyR43Ia9jdEolIv2yUKV lARJ9QTKfhCDz H7PewD3jCkNnCWTpMDFqW 4NlkVSpKVukW217VUmfBb W4KYBhbhMsU2JdZZYmgAm bLlK3i4P3Rl6Q HIuxofd4K7HbIxmlpCQ+P H17RIFqAR36gAFnbHCsr5 xamRf7AwWuXZHePJR8hTo cKSlkk7ReEVQu Y29s (more content not included)... [facility] [place] [facility] Coding Summary. CD:[id number]:[id number] G h0bWw+PGhlYWQ+IN8ODCO hW57qmHIqzR8OG0hFFQ5B CXNDEGGGPI7MSE6djRX3T JwiW5GeqhMd RnqcyUGwQY03LVs4CNJ0y PfrOQrbqP8gbJWzQ6x0Pe VvIS71kF13JEzaCYXkMpQ 3LjZpbjsgbWFy R6ozYlAeyJXwEhk+PHRhY mxlIHdpZHRoPScxMDAlJy XwaIpfVZ9yGr7mVVKaDSC vbGxhcHNlOiBj b5yvDJDaETmbYY9xaZfeU 6RmbSE2SLVnj2w4Jy56sT I+RAEfZWR5vPsxZKpfe81 5NdMaq7hrGAW5 oPBlDVrmVTF8S90fh3G6M MDfHIYcDNJ1uQN4dT5jsH rjdqdxB2UfoGVeFrM4VLZ 4pSUkkN4twAvr ltrhrK9yVto+P93KLD1CF RCDTQ8NOdx0T0ZjWzfaiJ I+QJ97UAOqAW32lKIslLC mg5ymtHp1TwYh NNDaEAN6aYliUUqsd8OwN SOpM31nuSIzg1J5MRPinB urgCFsUiClsCM9xA6kWWz zzkvky7grfzmz Mrxgn7ogba91rQ39J91fZ GokWPCdQOO0TGFuSTYzsR xets1uhA2qQc2+IXbth3u iq9cazWn4FpJg RHSygyDhkOcuNEX2w1CsV r68B6LsdDrks5CgPun6im 61oTUlo1N9wQD0BVbxEHW isF5rHOwxWvD9 VVQzHvXtaQ12uPEgMUgqL h9rfWwwpWfzHW2jUNHnjw cxCHRujN7bKFUrkEAieIq pZD2jYOGagdrz m416KwLrAQV4XBDrxLWvM 9CbzO3rRmCiLHNzVDGjA6 QodTMgWEfyE539QLjqDsV 5AWObdrIoW9Iz DYIsdWbqBqD8t0O4It2Na 6FkupyhQVE0LIdwQJHgHu HiYxJhCjH9O2SgLql6OEP rzLchGI5nG6Yb PIEogxgttdnyrEC4OBXkA GSqaB18jWJtULkcLj6zd5 W5d351ZJTkMDMxuO07Iz3 udDogMTBwdCBU pQ4vnidnv5scojyfHrAxJ ENyUYg2ASx4JEPoyPhwAt AiGKC5QuZ3WZE5eGIgeN5 ibHrwtzfaiR8d Oyc+R45esZ4qJAH2DHI9k crqRZNuuxHzCB79LA70D6 RyPjwvdGFibGU+PGRpdiB oxBifQS1kAyUv u0ymz9IpGIkqL1LyCGCsU DzxHiv7RUSwYWL0vRM3qO 1nKHXnFGawh1B6wJT7H7R bqbQyzm7ia7cb CHXbYFrxD74xeKVtr1T7S FXhdBP4FRFanGabYqLawD 93Oyc+UNFbvUnit4KyEfw bc4rvq1rsiSo2 XsTnHOJbyeRpxTqwYPX1m 3UoZe01R38mIOvhCNNaQG ZgKKWcVMMgcSfegn2zzF5 wIi8+PGNvbCB3 aPS9nN6vBIItHiK9TTasK 017WvZpgFWjNvixs6nyx6 nnjXy7XjYwHBLvwcUojAn qOPZ0g3ZeLe64 D28kUFgaYQFzXKGwUZNfN YUakWuybl5eoN1mJc5+PC 1lp9rmeg69sE03lOZ+PHR cPDV7aBzwDAlr WLEvdT4aWXvhRxP8SWRvS xTqhT58sNHqATnbFt4vkA telPcwRW6qFVDskqozm69 1HjOqg2tdJOVw aYXeLQntZDB4G71nd3C6N GSiFRChIWM4dAB5yM5seQ lnbjogbGVmdDsgdmVydGl wJQfwLSjgO472 IHRvcDsnPlBhdGllbnQgT bUlJPd7X7CuEuz3GPEmyA qwDK0fjRQeYTarFf4faAg wpDkxCR6nCGYf oplmm570XmQjv9pyTNOmt UIjRMnhVJZ2Q12sw9F5YE LtAZNbXFU7aPT3vB1fgZu nbjogbGVmdDsg ygGmcKdsCWtpLZcvV922U HRvcDsnPkJpcnRoIERhdG I6FQ04AZ26uDTsb6T2nHP 0D3VpZNLnpblq pfrxsZN4DCPpMMCdcQ68Q h1lpEqzRx9xLVEhJHE4DU UjeTFuG8AkdG4pDtEjXBB zFAChZ8PtwWVu LKumS558OTarAuJ3GSCoz xApV9OiRGSjhZgnMhO6d7 D2Ng7TI2S2IK50ZD40hJZ cs1L2fSU7D6Ru PJBxdgppdchvnJX3TSShL ULvaX60Rv8hxMdkCn4gUD PrRLI8LAHouMNlN1MybE2 yOiAjMDAwMDAw D9DpdLDwUQcwM271APuaT fG8VUVhqpBfY2XcUVNwjD suYxA7q3M9Pt9NIUd4CU0 4RA52lEBqe3R5 hTL8L4CnXLTxxsuhjwnif OX6HCDbBVNazM79Vo2eyV bjMd2vGPGtNTZ5NLYwfUP sJ5KcgB8eEjDz ZEToCPVyI6QacHAeYVhcU 046WAaeKmN4LBJislYpA3 TvOYCtdQrjVdO9r7F6Pn1 KXUZlOG45ECP7 kGA6ON03EF65D0UlOclwj GFibGU+PHRhYmxlIHdpZH RoPScxMDAlJyBzdHlsZT0 xHk0kRYXiJWRr sJbebUCwVhBuo0gpBWVcB WzxYS2psDfuN4YxsYZ4CD Ceh7u6Nc46Q90uW3BfvCC +JSTzjJT2lUW9 oI4sCbKiGkK8EAttF385R jLqzZVvWhjba1avx9bxsB c6ZkZ8TYDhzfPhmZspTUH 2v4WfDh53C39t IHdpZHRoPSIxNSUiIHZhb Tuevz1egG7bXa1+PGNvbC K9eBG1kX7ePeQbIxZ4FZa vR738GrSduKSq Jgxfq1nuo1ebyFc6NtXhO JDakiZqzArnHWU1x4KhCh 52Q7IloUtpm6SvMcx7uf4 6sTBpi5H4sZY9 T0PfLSWhdxcwuWLfiJzbD N1pXPApzfnkJAToeM4tOW UtQ8f0KuHkQbL4OFemT4X ixsF4UQBitNPl MIssUQV0O48ik4F3WWGpV SAfOFJ7fEI9bQ2bzDldxk ogbGVmdDsgdmVydGljYWw aKEeuH941AKLe sJvzNHYnbU2kGLFzhFTen QlnHK3aUQHhwcpyUnOZWV MRQOruLNRHD3YHBRuWWXL gRzwvdGQ+PHRk FCA1xKudQGsjXWBxaS8qH DVuD9m5OnDmPaU4XRjeR5 LcQPZqpbeeZk07fM7gYiP tRhK4JEyoC3Hn fdI5JVXuiMQfPKvzNJS6C 15gn4V8CKUcCSVaNPD6hK A5nN1qbBcyictyqRRweZu gdmVydGljYWwt VRoxS475UABmhVgfNgSkX jY3OtD8IFQ9R8NxMjb7MP IfbVxmSS8eiUWhXUaaXg7 eiZkgjIjcGK1o HUGsgvblOTKzsV6oFIHdi KVdkWxxUJ7bCVGfqxrpn6 77BeHlCTO5HYPkcYWsB4F scP8kBmTzQZGr TGSvJ3YpsZIlYNhfP641V OmpUlM6KGExdpZlH3NvSJ RowVunLbQ8m5B5Iy2rQkU ZZWFyczwvdGQ+ MENaXAX8fNqnDGhdBINsw Z9eOKTvF8g7ThTiXdN9AQ wgE2VpWAMktqzmHq88fO6 sNzOvJnJ7KRrc O1LcauU9XBFzzSOvGWlwU MM0P01mo9G9WMPlEQQeJP J8nOZ3tK1htIurikkjkKD mdDsgdmVydGlj FBdkDNmcG553QDPsoNqbN kZlbWFsZTwvdGQ+PHRkIH C1aBtjPImnYWOtjN3wJOQ uB4j2WjMzPnT3 GGshQ2RmMOAdukeeAe91b O9iFmHaCwM6JDugD9Chhw I7ZGIcuBAsJUjlFOG4F06 tl8Y2ZSAgEUGg HRB4nHM1mT8eaDzfvztyz GVmdDsgdmVydGljYWwtYW rzD725HIAzvZjhRyLkHCN jUD1lzWksrJJ+ QA80oc73R2EhUhtlPmc5C VBcHYO3oVG9zL5zWHVxDF vlu2F1cNO2A1McsbMvpv9 ql3myMEVjEMtn R92qpDGry2C1FCEbnQY9A JHdkUyaTaJelR53Ydp+PG RyyHdyx3FmEfbml6rbq5v quOb0HvLvBYWz cpOeaTjkMUI0e5XdRe85T 29sIHdpZHRoPSIzMCUiIH DwwXxiij5imS1qUb4+PGN mdFA9wLP0lL7j OjXfNoV8CBqdP400DlDgy EPnMjrnt7fqz0miqGp8Qj HmNJShpgPofXlmTBR8u1I eOe34Z5YmdHdj z8HkEzn2sd11uAWbw4M9v QU2F3YjFLYckvkqsEDujM epET0fXEBmaszqAMTtmX6 qWBBcC7y0ScBs ArU8ENvuA6ZjjjY1KOPki IQpWBEvkGCEyW1scercs5 ytfhkcDwGtDTBrIGg0RCg 0LWFsaWduOiBs STP4DjM9MCI6bZDmnP5pw UwwwwentW2sWrd+UGh5c2 kcvLVbGI8zeVB8CX70XC1 3rXSvi9Y8mOH7 P7GdXNTuvuxpekiolDT7I ALjYXLzlO53Ua8vnTjeTo 4iWTLmMLM7UEOizBFnZ7C drJ0oLkGzWKHw VZOfQ6VwiWDlXVfpU276X NtlMiN2WFQjriYxT3BrYW LppDorAjH9s5H6Ry4RWR0 4BH65SU60dMBo q5O6cDB5H8TgRNXvyuspn slvySY1MAWnRVQwdD95Vt 1zgIurUq0gFUYsCGT6FCA sqLOcP7AxiZ8y PiVeEDQnDOSkI5AotTHzN DmwN203AElqRfK4TODnwk TjD2UuIHLlnRlvYhL5u7S 0Wh8EAz62IV72 TU85qBBsk9R8cMS5G2YoK VDvgsakcvsgvNP9XTJzRB JldI12Su0qfFssSz8vMVU fPAW7GUMdhXVc G5EicP5jRwAnINDiVHLgX 6UttUGlXHchU955XYiaGf D0HZFxfsZyQ5EoKOPpeYr uXxM8s0W9Fu0Y XOqswbb7G0KwTvobuKO+P S79ESKyOL58eMDjcANbr4 xnoNr5EeQxCBFoORQ2xOy kGXpnq8OlUSWu Y29s (more content not included)... Normal [facility] ED Note-Physicianon 04-16-20 ED Note-Physician Basic Information Time Seen: Robinson Galvan PA-C 04/14/2022 14:53 Chief Complaint pt c/o allergic reaction to possibly motrin. pt was having swelling and redness in the face and tongue. ppt c/o sob. 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 History of Present Illness 31-year-old female [...] tab(s), Oral, Daily Follow-up With When Contact [facility] In 3 days 04/17/2022 EDT [address] [place] [address]- Business (1) Additional Instructions: Patient Education Anaphylactic Reaction, Adult Attestation Patient seen (more content not included)... Normal [facility] Comment on above: Result Comment: Elec tronically Signed By: Robinson Galvan PA-C\.br\Date and Time Signed: 04/14/22 18:33 EDT\.br\Electronically Co-Signed By: Saúl Gaspar MD\.br\Date and Time Co-Signed: 04/15/22 23:22 EDT Consent for Treatmenton Consent for Treatment [id number] .00CD:127 Normal [facility] Discharge Instructionson Discharge Instructions [id number] 1.00CD:127 Normal [facility] ED Clinical Summaryon 2021 ED Clinical Summary [place] [id number] ED Clinical Summary Person Information Name: RJ ELENA [facility] Age: 31 Years : 1990 Sex: Female Language: [place] Citizen PCP: Mark Pitts DO Marital Status: Single Phone: [phone] Visit Id: Visit Reason: Allergic reaction - [...] 04/14/2022 19:42:49 04/14/2022 19:42:49 04/14/2022 19:42:49 ADDRESS: [address] [place] [id number] PHYS DOC NOTES: MEDICAL INFORMATION: Prescriptions Given: New Medications [facility] 1986, [address] [place], [place] [id number], [phone] epinephrine (EpiPen 2-Ze 0.3 mg injectable kit) 1 Each Intramuscular As Directed. May substitute for another brand if required by insurance or inventory. Refills: 0. famotidine (Pepcid 40 mg Tab) 1 Tablets By Mouth once a day (at bedtime) for 7 Days. Refills: 0. Medications to Continue Taking That Have Changed [facility] 1985, [address] [place], [place] [id number], [phone] START: predniSONE (predniSONE 20 mg Tab) 3 [...] Anaphylactic Reaction, Adult Follow up: With: Address: [facility]: [address] [address] Business (1) In 3 days 04/17/2022 DIAGNOSIS: 1:Anaphylaxis Normal [facility] ED Patient Education Noteon 04-14-2022 ED Patient [...] Symptoms of anaphylaxis may include: ? Feeling systems testing laboratory technician the face (flushed). This may include [...] have hives or rash: ? Use an kkbb-ouh-wdujpcm antihistamine as told by your health care provider. ? Apply cold, wet cloths (cold compresses) to your skin or take baths or showers in cool water. Avoid hot water. ? Take arqj-std-eiphfjk and prescription medicines only as told by your health care provider. ? Tell all your health care providers that you have an allergy. ? Keep all follow-up visits as told by your health care provider. This is important. How is this prevented? ? Avoid allergens that have caused an anaphylactic reaction in the past. ? When you are at a restaurant, tell your server service assistant that you have an allergy. If you are not sure whether a menu item contains an ingredient that you are allergic to, ask your server service assistant. Where to find more information ? [employer] [employer]: aaaai.org ? [place] [employer]: healthychildren.org Get help right [...] medicine s (more content not included)... Normal [facility] ED Patient Summaryon 022 ED Patient Summary [place] [id number] Patient Discharge Instructions Person Information Name: RJ ELENA Age: 31 Years Arrival Date: 04/14/2022 14:45:02 Discharge Diagnosis: 1:Anaphylaxis Primary Care Physician: Mark Pitts DO Provider Information Primary Provider: Saúl Gaspar MD [employer] Supervisor:Robinson Galvan PA-C The exam and treatment you received in the Emergency Department were for an urgent problem and are not intended as complete care. It is important that you follow up with a doctor, nurse practitioner, or physician?s dam tender assistant for ongoing care. If your symptoms become worse or you do not improve as expected and you are unable to reach your usual health care provider, you should return to the Emergency Department. We are available 24 hours a day. KAYDENRJ BRONSON has been given the following list of patient education materials, prescriptions and follow-up instructions: Follow-up Instructions: With: Address: When: Mark Pitts [address] [place] [address] Business (1) In 3 days 04/17/2022 In the event that this physician does not participate in your insurance network, please consult with your insurance company to find a nearby participating provider. Patient Education Materials: Anaphylactic Reaction, Adult A MESSAGE TO ALL PATIENTS REGARDING OPIOIDS PRESCRIPTION OPIOIDS: WHAT YOU NEED TO KNOW Prescription opioids can be used to help relieve kpepsapu-ww-sgcsbl pain and are often prescribed following a [...] be struggling with addiction, tell your health manager critical care and ask for guidance or call SAMHSA?S National Helpline at 6-757-985-HELP. v Source (more content not included)... Normal [facility] Covid-19 PCR (CVDTBH)on SARS-CoV-2 (COVID-19) RNA YARELY+probe Ql (Unsp spec) Detected Critically abnormal NOT DETECTED [facility] Comment on above: Result Comment: This test is not yet approved or cleared by the [place] FDA. When there are no FDA-approved or cleared tests available, and other criteria are met, FDA can make tests available under an emergency access mechanism called an Emergency Use Authorization (EUA). The EUA for this test is supported by the [employer] of Health and Human Service's (HHS's) declaration [...] used). Performed By: #### C VDTB #### [facility] Laboratory [address] [place] [address] Dr. Tj Wild CBC AUTO DIFFon 07-05-2021 BASO # 0.0 103/ul Normal 0.0-0.1 [facility] Comment on above: Performed By: #### C BC #### [facility] Laboratory [address] [place] [address] Dr. Tj Wild Basophils/100 WBC (Bld) 0.1 % Critically low 0.2-2.0 [facility] Comment on above: Performed By: #### C BC #### [facility] Laboratory [address] [place] [address] Dr. Tj Wild EO # 0.0 103/ul Normal 0.0-0.7 [facility] Comment on above: Performed By: #### C BC #### [facility] [address] [place] [address] Dr. Tj Wild Eosinophils/100 WBC (Bld) 0.0 % Critically low 0.9-7.0 [facility] Comment on above: Performed By: #### C BC #### [facility] [address] [place] [address] Dr. Tj Wild Erythrocyte distribution width (RBC) [Ratio] 17.2 % Critically high 11.0-15.0 [facility] Comment on above: Performed By: #### C BC #### [facility] [address] [place] [address] Dr. Tj Wild Hematocrit (Bld) [Volume fraction] 36.3 % Normal 36.0-48.0 [facility] Comment on above: Performed By: #### C BC #### [facility] [address] [place] [address] Dr. Tj Wild Hemoglobin (Bld) [Mass/Vol] 12.3 g/dL Normal 12.0-16.0 [facility] Comment on above: Performed By: #### C BC #### [facility] [address] [place] [address] Dr. Tj Wild IG # 0.08 10e3/ul Critically high 0.00-0.03 [facility] Comment on above: Performed By: #### C BC #### [facility] [address] [place] [address] Dr. Tj Wild IG % 0.5 % Normal 0.0-0.5 [facility] Comment on above: Performed By: #### C BC #### [facility] [address] [place] [address] Dr. Tj Wild LYMPH # 2.2 103/ul Normal 1.2-3.8 [facility] Comment on above: Performed By: #### C BC #### [facility] [address] [place] [address] Dr. Tj Wild Lymphocytes/100 WBC (Bld) 13.8 % Critically low 20.5-60.0 [facility] Comment on above: Performed By: #### C BC #### [facility] [address] [place] [address] Dr. Tj Wild MANUAL DIFF REQ NO Normal [facility] Comment on above: Performed By: #### C BC #### [facility] [address] [place] [address] Dr. Tj Wild MCH (RBC) [Entitic mass] 26.6 pg Critically low 26.7-34.0 [facility] Comment on above: Performed By: #### C BC #### [facility] [address] [place] [address] [address] Tj Wild MCHC (RBC) [Mass/Vol] 33.9 g/dL Normal 29.9-35.2 [facility] Comment on above: Performed By: #### C BC #### [facility] [address] [place] [address] [address] Tj Wild MCV (RBC) [Entitic vol] 78.4 fL Critically low 81.0-99.0 [facility] Comment on above: Performed By: #### C BC #### [facility] [address] [place] [address] [address] Tj Wild MONO # 0.7 103/ul Normal 0.3-0.8 [facility] Comment on above: Performed By: #### C BC #### [facility] [address] [place] [address] Dr. Tj Wild Monocytes/100 WBC (Bld) 4.6 % Normal 1.7-12.0 [facility] Comment on above: Performed By: #### C BC #### [facility] [address] [place] [address] Dr. Tj Wild NEUT # 12.9 103/ul Critically high 1.4-6.5 [facility] Comment on above: Performed By: #### C BC #### [facility] [address] [place] [address] Dr. Tj Wild Neutrophils/100 WBC (Bld) 81.0 % Critically high 43.0-75.0 [facility] Comment on above: Performed By: #### C BC #### [facility] [address] [place] [address] Dr. Tj Wild Platelet mean volume (Bld) [Entitic vol] 10.3 fL Normal 9.5-13.5 [facility] Comment on above: Performed By: #### C BC #### [facility] [address] [place] [address] Dr. Tj Wild PLT 254 103/ul Normal 150-450 [facility] Comment on above: Performed By: #### C BC #### [facility] [address] [place] [address] Dr. Tj Wild RBC 4.63 106/ul Normal 4.20-5.40 [facility] Comment on above: Performed By: #### C BC #### [facility] [address] [place] [address] Dr. Tj Wild WBC 16.0 103/ul Critically high 4.0-11.0 [facility] Comment on above: Performed By: #### C BC #### [facility] [address] [place] [address] Dr. Tj Wild Covid-19 PCR (CVDTBH)on 06-10 SARS-CoV-2 (COVID-19) RNA YARELY+probe Ql (Unsp spec) Not detected Normal NOT DETECTED [facility] Comment on above: Result Comment: When diagnostic [...] for this test is supported by the [employer] of Health and Human Service's declaration that [...] used). Performed By: #### C VDTBH #### [facility] [address] [place] [address] Dr. Tj Wild D-DIMERon 07-05-2021 D-DIMER 6.07 mg/L FEU Critically high 0.19-0.50 [facility] Comment on above: Performed By: #### D DIM #### [facility] [address] [place] [address] Dr. Tj Wild D-DIMER COMMENTS SEE BELOW Normal [facility] Comment on above: Result Comment: Incr eases [...] hospitalization. Performed By: #### D DIM #### [facility] [address] [place] [address] Dr. Tj Wild PREG HCG QUALon 07-05-2021 , QUAL Negative Normal NEGATIVE [facility] Comment on above: Performed By: #### P REG #### [facility] [address] [place] [address] Dr. Tj Wild PROF 14(COMP METB)on 021 Albumin [Mass/Vol] 3.5 g/dL Normal 3.5-5.0 [facility] Comment on above: Performed By: #### H STROPN, CMP #### [facility] [address] [place] [address] Dr. Tj Wild Albumin/Globulin [Mass ratio] 1.1 {ratio} Normal [facility] Comment on above: Performed By: #### H STROPN, CMP #### [facility] [address] [place] [address] Dr. Tj Wild ALP [Catalytic activity/Vol] 56 U/L Normal 38-126 [facility] Comment on above: Performed By: #### H STROPN, CMP #### [facility] [address] [place] [address] Dr. Tj Wild ALT [Catalytic activity/Vol] 21 U/L Normal 9-52 [facility] Comment on above: Performed By: #### H STROPN, CMP #### [facility] [address] [place] [address] Dr. Tj Wild Anion gap [Moles/Vol] 14.4 mmol/L Normal [facility] Comment on above: Performed By: #### H STROPN, CMP #### [facility] [address] [address] [address] Tj Wild AST [Catalytic activity/Vol] 27 U/L Normal 14-36 [facility] Comment on above: Performed By: #### H STROPN, CMP #### [facility] [address] [address] [address] Tj Wild Bilirubin [Mass/Vol] 0.5 mg/dL Normal 0.2-1.3 [facility] Comment on above: Performed By: #### H STROPN, CMP #### [facility] [address] [address] [address] Tj Wild Calcium [Mass/Vol] 8.7 mg/dL Normal 8.4-10.2 [facility] Comment on above: Performed By: #### H STROPN, CMP #### [facility] [address] [place] [address] [address] Tj Wild Chloride [Moles/Vol] 101 mmol/L Normal 98-107 [facility] Comment on above: Performed By: #### H STROPN, CMP #### [facility] [address] [place] [address] [address] Tj Wild CO2 [Moles/Vol] 26.3 mmol/L Normal 22.0-30.0 [facility] Comment on above: Performed By: #### H STROPN, CMP #### [facility] [address] [address] [address] Tj Wild Creatinine [Mass/Vol] 0.89 mg/dL Normal 0.52-1.04 [facility] Comment on above: Performed By: #### H STROPN, CMP #### [facility] [address] [address] [address] Tj Wild EGFR-AF GAMBIAN >60 Normal >=60 [facility] Comment on above: Performed By: #### H STROPN, CMP #### [facility] [address] [address] [address] Tj Wild EGFR-NON AF GAMBIAN >60 Normal >=60 [facility] Comment on above: Performed By: #### H STROPN, CMP #### [facility] [address] [address] [address] Tj Wild Globulin (S) [Mass/Vol] 3.3 g/dL Normal [facility] Comment on above: Performed By: #### H STROPN, CMP #### [facility] [address] [address] [address] Tj Wild Glucose [Mass/Vol] 116 mg/dL Critically high 74-106 [facility] Comment on above: Performed By: #### H STROPN, CMP #### [facility] [address] [address] [address] Tj Wild Potassium [Moles/Vol] 3.7 mmol/L Normal 3.4-5.0 [facility] Comment on above: Performed By: #### H STROPN, CMP #### [facility] [address] [place] [address] Dr. Tj Wild Protein [Mass/Vol] 6.8 g/dL Normal 6.1-8.2 [facility] Comment on above: Performed By: #### H STROPN, CMP #### [facility] [address] [place] [address] Dr. Tj Wild Sodium [Moles/Vol] 138 mmol/L Normal 137-145 [facility] Comment on above: Performed By: #### H STROPN, CMP #### [facility] [address] [place] [address] Dr. Tj Wild Urea nitrogen [Mass/Vol] 20.0 mg/dL Critically high 7.0-17.0 [facility] Comment on above: Performed By: #### H STROPN, CMP #### [facility] [address] [place] [address] Dr. Tj Wild Urea nitrogen/Creatinine [Mass ratio] 22.5 mg/mg Normal [facility] Comment on above: Performed By: #### H STROPN, CMP #### [facility] [address] [place] [address] Dr. Tj Wild TROPONIN, HIGH SENSITIVITYon 07-05-2021 HSTROP 10.4 pg/mL Normal 4.0-35.5 [facility] Comment on above: Result Comment: CUT- OFF POINTS HAVE BEEN ESTABLISHED BASED ON THE FOURTH UNIVERSAL DEFINITIONS OF MYOCARDIAL INFARCTION. THE UPPER REFERENCE LIMIT (URL) OF TROPONIN, DEFINED THE 99TH PERCENTILE OF cTnI DISTRIBUTION IN A REFERENCE POPULATION, HAS BEEN CONFIRMED THE DECISION THRESHOLD FOR [place] DIAGNOSIS. Performed By: #### H STROAPRIL, CMP #### [facility] [address] [address] [address] Tj Wild XR CHEST 1 Von [...] by: Cassius MCKEON Date: 2021-07-05 20:[address] [facility] Vital Signs Date Time Vital Sign Value Performing Clinician Facility 08-21-2023 11:12-0500 Body mass index (BMI) [Ratio] 32.95 kg/m2 Bhumika COKER Work Phone: [facility] 08-21-2023 11:12-050 Body weight 84.37 kg Bhumika COKER Work Phone: [facility] 08-21-2023 11:12-0500 Diastolic blood pressure 60 mm[Hg] Bhumika COKER Work Phone: [facility] 08-21-2023 11:12-0500 Systolic blood pressure 110 mm[Hg] Bhumika COKER Work Phone: [facility] 02-26-2023 15:56-0400 Body temperature 98.78 [degF] Charlie Rubalcava [facility] 02-26-2023 15:56-0400 Diastolic blood pressure 76 mm[Hg] Charlie Rubalcava [facility] 02-26-2023 15:56-0400 Heart rate 107 /min Charlie Rubalcava [facility] 02-26-2023 15:56-0400 Respiratory rate 16 /min Charlie Rubalcava [facility] 02-26-2023 15:56-0400 SaO2% (BldA) [Mass fraction] 98 % Charlie Rubalcava [facility] 02-26-2023 15:56-0400 Systolic blood pressure 115 mm[Hg] Charlie Rubalcava [facility] 12-31-2022 10:16-0400 Body temperature 98.24 [degF] Javier Woods [facility] 12-31-2022 10:16-0400 Diastolic blood pressure 82 mm[Hg] Javier Woods [facility] 12-31-2022 10:16-0400 Heart rate 90 /min Javier Woods [facility] 12-31-2022 10:16-0400 Respiratory rate 18 /min Javier Woods [facility] 12-31-2022 10:16-0400 SaO2% (BldA) [Mass fraction] 99 % Javier Woods [facility] 12-31-2022 10:16-0400 Systolic blood pressure 129 mm[Hg] Javier Reynae [facility] 12-30-2022 13:13-0400 Body temperature 98.06 [degF] Javier Reynae [facility] 12-30-2022 13:13-0400 Diastolic blood pressure 75 mm[Hg] Javier Woods [facility] 12-30-2022 13:13-0400 Heart rate 88 /min Javier Woods [facility] 12-30-2022 13:13-0400 Respiratory rate 16 /min Javier Woods [facility] 12-30-2022 13:13-0400 SaO2% (BldA) [Mass fraction] 96 % Javier Woods [facility] 12-30-2022 13:13-0400 Systolic blood pressure 125 mm[Hg] Javier Woods [facility] 12-21-2022 13:35-0400 Body temperature 98.24 [degF] Charlie Rubalcava [facility] 12-21-2022 13:35-0400 Diastolic blood pressure 77 mm[Hg] Charlie Khadar [facility] 12-21-2022 13:35-0400 Heart rate 93 /min Charlie Khadar [facility] 12-21-2022 13:35-0400 Respiratory rate 18 /min Charlie Khadar [facility] 12-21-2022 13:35-0400 SaO2% (BldA) [Mass fraction] 99 % Charlie Khadar [facility] 12-21-2022 13:35-0400 Systolic blood pressure 128 mm[Hg] Charlie Khadar [facility] 09-05-2022 22:53-0500 Diastolic blood pressure 63 mm[Hg] Kaylinn Dokken [facility] 09-05-2022 22:53-0500 Heart rate 93 /min Kaylinn Dokken [facility] 09-05-2022 22:53-0500 Mean blood pressure 80 mm[Hg] Kaylinn Dokken [facility] 09-05-2022 22:53-0500 Respiratory rate 20 /min Kaylinn Dokken [facility] 09-05-2022 22:53-0500 SaO2% (BldA) [Mass fraction] 95 % Kaylinn Dokken [facility] 09-05-2022 22:53-0500 Systolic blood pressure 114 mm[Hg] Kaylinn Dokken [facility] 09-05-2022 21:45-0500 Diastolic blood pressure 60 mm[Hg] Kaylinn Dokken [facility] 09-05-2022 21:45-0500 Heart rate 97 /min Kaylinn Dokken [facility] 09-05-2022 21:45-0500 Mean blood pressure 80 mm[Hg] Kaylinn Dokken [facility] 09-05-2022 21:45-0500 Respiratory rate 16 /min Kaylinn Dokken [facility] 09-05-2022 21:45-0500 SaO2% (BldA) [Mass fraction] 93 % Kaylinn Dokken [facility] 09-05-2022 21:45-0500 Systolic blood pressure 119 mm[Hg] Kaylinn Dokken [facility] 09-05-2022 21:03-0500 Body temperature 97.52 [degF] Kaylinn Dokken [facility] 09-05-2022 21:03-0500 Diastolic blood pressure 56 mm[Hg] Kaylinn Dokken [facility] 09-05-2022 21:03-0500 Heart rate 115 /min Qutia Clark [facility] 09-05-2022 21:03-0500 Respiratory rate 32 /min Perlan Gretaen [facility] 09-05-2022 21:03-0500 SaO2% (BldA) [Mass fraction] 95 % Quita Hernandesen [facility] 09-05-2022 21:03-0500 Systolic blood pressure 123 mm[Hg] Quita Hernandesen [facility] 04-14-2022 19:00-0400 Diastolic blood pressure 70 mm[Hg] Saúl Hubert [facility] 04-14-2022 19:00-0400 Heart rate 91 /min Saúl Hubert [facility] 04-14-2022 19:00-0400 Mean blood pressure 83 mm[Hg] Saúl Hubert [facility] 04-14-2022 19:00-0400 Respiratory rate 14 /min Saúl Hubert [facility] 04-14-2022 19:00-0400 SaO2% (BldA) [Mass fraction] 96 % Saúl Hubert [facility] 04-14-2022 19:00-0400 Systolic blood pressure 110 mm[Hg] Saúl Hubert [facility] 04-14-2022 18:22-0400 Diastolic blood pressure 64 mm[Hg] Saúl Hubert [facility] 04-14-2022 18:22-0400 Heart rate 87 /min Saúl Hubert [facility] 04-14-2022 18:22-0400 Mean blood pressure 76 mm[Hg] Saúl Hubert [facility] 04-14-2022 18:22-0400 Respiratory rate 20 /min Saúl Hubert [facility] 04-14-2022 18:22-0400 SaO2% (BldA) [Mass fraction] 95 % Saúl Hubert [facility] 04-14-2022 18:22-0400 Systolic blood pressure 100 mm[Hg] Saúl Hubert [facility] 04-14-2022 17:00-0400 Diastolic blood pressure 61 mm[Hg] Saúl Hubert [facility] 04-14-2022 17:00-0400 Respiratory rate 19 /min Saúl Hubert [facility] 04-14-2022 17:00-0400 SaO2% (BldA) [Mass fraction] 93 % Saúl Hubert [facility] 04-14-2022 17:00-0400 Systolic blood pressure 105 mm[Hg] Saúl Uhbert [facility] 04-14-2022 15:35-0400 Heart rate 92 /min Saúl Hubert [facility] 04-14-2022 15:35-0400 Respiratory rate 16 /min Saúl Hubert [facility] 04-14-2022 14:48-0400 Body temperature 98.06 [degF] Saúl Hubert [facility] 04-14-2022 14:48-0400 Heart rate 113 /min Saúl Hubert [facility] 04-14-2022 14:48-0400 Respiratory rate 18 /min Saúl Hubert [facility] 11-19-2021 19:00-0400 Hourly Rounding Javier Woods [facility] 11-19-2021 19:00-0400 Promise to Return Javier Reynae [facility] 11-19-2021 18:45-0400 Diastolic blood pressure 64 mm[Hg] Javier Peggy [facility] 11-19-2021 18:45-0400 Heart rate 85 /min Javier Peggy [facility] 11-19-2021 18:45-0400 Mean blood pressure 76 mm[Hg] Javier Peggy [facility] 11-19-2021 18:45-0400 Respiratory rate 16 /min Javier Peggy [facility] 11-19-2021 18:45-0400 SaO2% (BldA) [Mass fraction] 98 % Javier Peggy [facility] 11-19-2021 18:45-0400 Systolic blood pressure 100 mm[Hg] Javier Peggy [facility] 11-19-2021 18:15-0400 Diastolic blood pressure 70 mm[Hg] Javier Peggy [facility] 11-19-2021 18:15-0400 Heart rate 84 /min Javier Peggy [facility] 11-19-2021 18:15-0400 Mean blood pressure 85 mm[Hg] Javier Peggy [facility] 11-19-2021 18:15-0400 Respiratory rate 16 /min Javier Peggy [facility] 11-19-2021 18:15-0400 SaO2% (BldA) [Mass fraction] 96 % Javier Peggy [facility] 11-19-2021 18:15-0400 Systolic blood pressure 114 mm[Hg] Javier Peggy [facility] 11-19-2021 17:45-0400 Diastolic blood pressure 71 mm[Hg] Javier Woods [facility] 11-19-2021 17:45-0400 Heart rate 86 /min Javier Woods [facility] 11-19-2021 17:45-0400 Mean blood pressure 81 mm[Hg] Javier Woods [facility] 11-19-2021 17:45-0400 Respiratory rate 16 /min Javier Woods [facility] 11-19-2021 17:45-0400 SaO2% (BldA) [Mass fraction] 97 % Javier Woods [facility] 11-19-2021 17:45-0400 Systolic blood pressure 102 mm[Hg] Javier Woods [facility] 11-19-2021 15:45-0400 Blood Pressure Location Javier Woods [facility] 11-19-2021 15:22-0400 Body temperature 98.24 [degF] Javier Woods [facility] 11-19-2021 15:22-0400 Heart rate 111 /min Javier Woods [facility] Encounters Encounter Date Encounter Type Care Provider Facility Start: 08-22-2023 Clinisync Result Encounter Bhumika COKER Work Phone: [facility] Unsolicited Start: 08-22-2023 Clinisync Result Encounter Bhumika COKER Work Phone: [facility] Unsolicited Start: 08-21-2023 End: 08-21-2023 ambulatory BHUMIKA MO Not Available Start: 08-21-2023 End: 08-21-2023 Office outpatient visit 15 minutes Bhumika COKER Work Phone: [facility] Comment on above: Third trimester preg baltazar; Diabetes mellitus screening; BV (bacterial vaginosis); Nausea Start: 07-20-2023 End: 07-20-2023 ambulatory BRODERICK NICKERSON Not Available Start: 06-15-2023 End: 06-15-2023 ambulatory BHUMIKA MO Not Available Start: 02-26-2023 End: 02-26-2023 Emergency department patient visit Charlie Rubalcava Facility:[facility] Start: 02-26-2023 End: 02-26-2023 Emergency department patient visit Charlie Rubalcava [facility] Start: 01-30-2023 End: 01-31-2023 ambulatory Willa ANDERSON [facility] Start: 12-31-2022 End: 12-31-2022 Emergency department patient visit Javier Woods Facility:[facility] Start: 12-31-2022 End: 12-31-2022 Emergency department patient visit Javier Woods [facility] Start: 12-30-2022 End: 12-30-2022 Emergency department patient visit Javier Woods Facility:[facility] Start: 12-30-2022 End: 12-30-2022 Emergency department patient visit Javier Woods [facility] Start: 12-26-2022 End: 12-27-2022 ambulatory John LOTT [facility] Start: 12-21-2022 End: 12-21-2022 Emergency department patient visit Charlie Rubalcava Facility:[facility] Start: 12-21-2022 End: 12-21-2022 Emergency department patient visit Charlie Rubalcava [facility] Start: 12-15-2022 End: 12-16-2022 ambulatory John LOTT [facility] Start: 09-05-2022 End: 09-06-2022 Emergency department patient visit Quita Clark Facility:[facility] Start: 09-05-2022 End: 09-05-2022 Emergency department patient visit Quita Clark [facility] Start: 09-04-2022 End: 09-04-2022 Emergency department patient visit Solo Kimble Facility:[facility] Start: 07-27-2022 End: 07-27-2022 Emergency department patient visit Saúl Gaspar Facility:[facility] Start: 04-14-2022 End: 04-14-2022 Emergency department patient visit Saúl Gaspar Facility:[facility] Start: 04-14-2022 End: 04-14-2022 Emergency department patient visit Saúl Gaspar [facility] Start: 01-13-2022 End: 01-13-[address] HOLLIE RUBI Facility: Start: 11-19-2021 End: 11-19-2021 Emergency department patient visit Javier Woods [facility] Start: 07-05-2021 End: 07-06-2021 ambulatory PHILLIP LORA Facility: Procedures Date Procedure Procedure Detail Performing Clinician Start: 08-22-2023 ALL CBC WITH AUTO DIFF Bhumika COKER Work Phone: Start: 08-21-2023 Urnls dip stick/tabl et rgnt non-auto w/o micrscp Bhumika COKER Work Phone: Start: 06-15-2023 Cytp cerv/vag auto t hin layer prep mnl screen Broderick Liya DO Work Phone: None (qualifier value) Javier Peggy Plan of Treatment Date Care Activity Detail Author Start: 09-04-2023 End: 09-04-2023 Patient encounter procedure 09/04/2023 8:30 AM EST Routine [facility] [address] [id number] Broderick Nickerson, [address] [place] [address] [facility] Start: 08-21-2023 End: 08-21-2024 CBC panel - Blood by Automated count CBC Lab Routine Diabetes mellitus screening Expected: 08/21/2023 (Approximate), Expires: 08/21/2024 [facility] Work Phone: Comment on above: Expected: 08/21/2023 (Approximate), Expires: 08/21/2024 Start: 08-21-2023 End: 08-21-2024 Measurement of glucose 1 hour after glucose challenge for glucose tolerance test Glucose tolerance, 1 hour Lab Routine Diabetes mellitus screening Expected: 08/21/2023 (Approximate), Expires: 08/21/2024 [facility] Comment on above: Expected: 08/21/2023 (Approximate), Expires: 08/21/2024 Payers Date Payer Category Payer Medicaid [employer] [facility] [id number] 2022-Present [address] [address] [place] [address] [id number] 1990 Unknown [id number] [id number] 1990 Unknown [id number] [id number] 1990 Unknown [id number] [id number] 1990 Unknown [id number] 2.16.840.1.360149.3.579.2.727 1990 Unknown [id number] 2.16.840.1.382021.3.579.2.727 1990 Unknown [id number] 2.16.840.1.879309.3.579.2.727 1990 Unknown [id number] 2.16.840.1.746043.3.579.2.727 1990 Unknown [id number] 2.16.840.1.906372.3.579.2.727 1990 Unknown [id number] 2.16.840.1.255814.3.579.2.727 1990 Unknown [id number] 2.16.840.1.359416.3.579.2.727 1990 Unknown [id number] 2.16.840.1.649621.3.579.2.727 1990 Unknown [id number] 2.16.840.1.407835.3.579.2.727 1990 Unknown [id number] 2.16.840.1.418724.3.579.2.727 1990 Unknown [id number] 2.16.840.1.653361.3.579.2.1259 1990 Unknown [id number] 2.16.840.1.793855.3.579.2.1259 1990 Unknown [id number] [id number] 1959 Unknown [id number] Self-pay Social History Date Type Detail Facility Tobacco Cigarettes [facility] Comment on above: 1 ppd Sex Assigned At Female [facility] Start: 04-14-2022 Tobacco smoking status Heavy tobacco smoker (finding) [facility] Tobacco smoking status NHIS Tobacco smoking consumption unknown [facility] Start: 02-14-2023 [facility] Start: 1990 Sex Assigned At Not on file [facility] Functional Status Date Assessment Result Facility 02-26-2023 Functional Status N/A [facility] 12-31-2022 Functional Status N/A [facility] 12-30-2022 Functional Status N/A [facility] 06-14-2023 Functional Status N/A [facility] 09-05-2022 Functional Status N/A [facility] 04-14-2022 Functional Status N/A [facility] Clinical Notes 07-06-2021 to 08-21-2023 JOHN PAUL [...] JOHN PAUL Ardon documented in this encounter [facility] 02-26-2023 Hospital Discharg e [...] condition. Follow these instructions at home: Take cujg-bcn-rfkzsqx and prescription medicines only as told by [...] and water are not available, use hand regional operations director. Avoid contact with people who have cold [...] it is easier to cough up. Take jglp-zed-otkbcla and prescription medicines only as told by [...] provider. Document Revised: 10/27/2021 Document Reviewed: 10/27/2021 [employer] Patient Education 2022 [employer] Follow Up Care 02/26/2023 15:53:57 With:[facility] Address: [address] [place] [address] Business (1) When:03/01/2023 17:54:59 Comments:Call the office [...] you develop any new or worsening symptoms. [facility] 02-26-2023 Evaluation + Plan note Extrac kathi from: Title:ED Note Author:Juan Ott PA-C e:02/26/23 Bronchitis (J40: Bronchitis, not specified as acute or chronic) Upper respiratory infection (J06.9: Acute upper respiratory infection, unspecified) Orders: albuterol, 2 puff(s), Inhalation, q4hr for 7 day(s), 8.5 gm, Refill(s) 0, [facility], 160, cm, 02/26/23 15:59:00 EDT, Height/Length Dosing, 85.6, kg, 02/26/23 15:59:00 EDT, Weight Dosing brompheniramine/dextromethorphan/PSE, 5 mL, Oral, QID for cold symptoms, 200 mL, Refill(s) 0, [facility] 1985, 160, cm, 02/26/23 15:59:00 EDT, Height/Length Dosing, 85.6, kg, 02/26/23 15:59:00 EDT, Weight Dosing guaifenesin, 600 mg = 1 tab(s), Oral, q12hr, X 7 day(s), # 14 tab(s), Refills(s) 0, Pharmacy: [facility] 1985, 160, cm, 02/26/23 15:59:00 EDT, Height/Length Dosing, 85.6, kg, 02/26/23 15:59:00 EDT, Weight Dosing predniSONE, 60 mg = 3 tab(s), Oral, Daily, X 5 day(s), # 15 tab(s), Refills(s) 0, Pharmacy: [facility] 1985, 160, cm, 02/26/23 15:59:00 EDT, Height/Length Dosing, 85.6, kg, 02/26/23 15:59:00 EDT, Weight Dosing Rapid COVID Antigen ([facility]) [facility]06-24-2023 Hospital Discharge instructions Patient Education 12/31/2022 10:41:35 [...] if you start to feel better. Take brox-tsg-ccolykq and prescription medicines only as told by [...] provider. Document Revised: 09/08/2021 Document Reviewed: 09/08/2021 [employer] Patient Education 2022 [employer]. Follow Up Care 12/31/2022 10:02:50 With:Mark Bethany Address: [address] [place] [address]- Business (1) When:01/03/2023 10:36:17 Comments:Follow-up with your primary care provider in 3 to 5 days. If symptoms worsen, do not improve, or new symptoms arise please report back to emergency department for further evaluation. [facility]06-23-2023 Hospital Discharge instructions Follow Up Care 12/30/2022 13:07:17 With:Mark Bethany Address: [address] [place] [phone]- Business (1) When:Within 3 Day(s) [facility]06-23-2023 Evaluation + Plan noteExtracted from: Title:ED Note Author:Javier Woods DO Date:12/09 09/29 Otitis externa, left (H60.92 : Unspecified otitis externa, left ear) Orders: ciprofloxacin-dexamethasone otic, 5 drop(s), Otic, BID for 7 day(s), 7.5 mL, Refill(s) 0, [facility] 1986, 160, cm, 12/30/22 13:14:00 EDT, Height/Length Dosing, 85.6, kg, 12/30/22 13:14:00 EDT, Weight Dosing [facility]06-14-2023 Hospital Discharge instructions Patient Education 12/21/2022 14:54:11 [...] or swathi your foot. General instructions Take dvhz-bwg-pcdmxkl and prescription medicines only as told by [...] provider. Document Revised: 10/16/2020 Document Reviewed: 10/16/2020 [employer] Patient Education 2022 [employer]. 12/21/2022 14:54:11 Elastic Bandage and RICE Therapy [...] limityour activities and whether you should start fpvnp-fb-ufuija exercises for your injury. Ice Ice your [...] provider. Document Revised: 08/21/2020 Document Reviewed: 03/16/2018 [employer] Patient Education 2020 [employer]. 12/21/2022 14:54:11 Ankle Sprain, Phase II Rehab [...] by your health care provider. Stretching and uooas-sf-ehnmeh exercises These exercises warm up your muscles [...] provider. Document Revised: 08/19/2021 Document Reviewed: 08/19/2021 [employer] Patient Education 2022 [employer]. 12/21/2022 14:54:11 Ankle Sprain, Phase I Rehab [...] told by your healthcare provider. Stretching and efzhs-jp-ozmhdg exercises These exercises warm up your muscles [...] provider. Document Revised: 08/19/2021 Document Reviewed: 08/19/2021 [employer] Patient Education 2022 [employer] 12/21/2022 14:54:11 Ankle Sprain, Ydpq-di-Txlh Ankle Sprain An ankle sprain is a [...] blue. Managing pain, stiffness, and swelling Take fxuo-gjz-ypkuble and prescription medicines only as told by [...] provider. Document Revised: 08/19/2021 Document Reviewed: 08/19/2021 [employer] Patient Education 2022 Cop[employer]. Follow Up Care 12/21/2022 13:24:37 With:[facility] Address: [address] [place] [address] Business (1) When:12/24/2022 14:27:12 Comments:Follow-up with your primary care provider in 3 to 5 days. If symptoms worsen, do not improve, or new symptoms arise please report back to emergency department for further evaluation. [facility]06-14-2023 Evaluation + Plan noteExtracted from: Title:ED Note Author:Loyd Lange PA-C te:12/21/22 Left ankle sprain (S93.402A: Sprain of unspecified ligament of left ankle, initial encounter) Sprain of left foot (S93.602A: Unspecified sprain of left foot, initial encounter) Orders: Crutches XR Ankle 3+ Views Left XR Foot 3+ Views Left [facility]02-28-2023 Hospital Discharge instructions Patient Education 09/05/2022 22:58:39 Hives, Asin-fa-Amac Hives Hives are itchy, red, swollen areas [...] woman. Being allergic to foods such as: ?[place] fruits. ?Milk. ?Eggs. ?Peanuts. ?Tree nuts. ?Shellfish. [...] instructions at home: Medicines Take or apply grvt-hoi-cgxswdb and prescription medicines only as told by [...] what causes your hives. Take and apply emmn-auv-pnfunug and prescription medicines only as told by your doctor. Keep all follow-up visits as told by your doctor. This is important. This information is not intended to replace advice given to you by your health care provider. Make sure you discuss any questions you have with your health care provider. Document Released: 04/04/2009 Document Revised: 01/09/2019 Document Reviewed: 01/09/2019 [employer] Patient Education 2020 Copious. Follow Up Care 09/05/2022 21:02:01 With:KATJA MCGINNIS Address: [facility] [place] [address]- Business (1) When:09/08/2022 21:23:21 Comments:Follow-up for further evaluation of your urticarial rashes and reactions. With:Mark Pitts Address: [address] [place], [place] [id number] Business (1) When:Within 3 Day(s) [facility]02-27-2023 Evaluation + Plan noteExtracted from: Title:ED Note Author:Nazario CAO, Loyd Matute te:09/05/22 Allergic reaction (T78.40XA: Allergy, unspecified, initial encounter) Urticaria (L50.9: Urticaria, unspecified) Orders: diphenhydrAMINE, 25 mg = 0.5 mL, Injection, IV Push, Once, Stop date 09/05/22 21:11:00 EST, STAT, Start date 09/05/22 21:11:00 EST, 09/05/22 21:11:00 EST epinephrine, 0.3 mg, IntraMuscular, Once, # 1 kit(s), Refills(s) 1, [email or web address], cm, 09/05/22 21:08:00 EST, [...] day(s), # 21 tab(s), Refills(s) 0, [email or web address], [facility], cm, 09/05/22 21:08:00 EST, Height/Length Dosing, 85.6, kg, 09/05/22 21:08:00 EST, Weight Dosing Sodium Chloride 0.9% intravenous solution, 1,000 mL, Soln-IV, IV, Once, Stop date 09/05/22 21:11:00 EST, STAT, Start date 09/05/22 21:11:00 EST, mL/hr, Infuse over 61, minute(s) [facility]10-06-2022 Hospital Discharge instructions Patient Education 04/14/2022 19:42:50 [...] symptoms? Symptoms of anaphylaxis may include: Feeling systems testing laboratory technician the face (flushed). This may include [...] you have hives or rash: ?Use an extu-nxy-wczabfu antihistamine as told by your health care provider. ?Apply cold, wet cloths (cold compresses) to your skin or take baths or showers in cool water. Avoid hot water. Take wqtp-fal-dpqjlin and prescription medicines only as told by your health care provider. Tell all your health care providers that you have an allergy. Keep all follow-up visits as told by your health care provider. This is important. How is this prevented? Avoid allergens that have caused an anaphylactic reaction in the past. When you are at a restaurant, tell your server service assistant that you have an allergy. If you are not sure whether a menu item contains an ingredient that you are allergic to, ask your server service assistant. Where to find more information [employer]: aaaai.org [employer]: healthychildren.org Get help right [...] 06/26/2006 Document Revised: 10/18/2018 Document Reviewed: 10/18/2018 [employer] Patient Education 2019 Copious. Follow Up Care 04/14/2022 14:45:49 With:Mark Bethany Address: [address] [place], [place] [id number] Business (1) When:04/17/2022 18:33:05 [facility]05-13-2022 Hospital Discharge instructions Patient Education 11/19/2021 19:08:27 [...] have symptoms of anaphylaxis, such as: Feeling systems testing laboratory technician the face (flushed). This may include [...] you are at a restaurant, tell your server service assistant that you have an allergy. If you are unsure whether a meal has an ingredient that you are allergic to, ask your server service assistant. Take dazf-erl-lihyqho and prescription medicines only as told by [...] 06/23/2001 Document Revised: 06/26/2018 Document Reviewed: 06/26/2018 [employer] Patient Education 2020 Copious. Follow Up Care 11/19/2021 15:20:25 With:[facility] Address: [address] [place] [address] Business (1) When:11/22/2021 18:25:35 [facility]12-28-2021 NotePROCEDURE: CTA CHEST WO W CON REASON [...] authenticated by: TULIO VILLASEÑOR Date: 2021-07-05 23:35[facility] No data available for this section [facility] Diagnosis Third trimester state, incidental Diabetes mellitus screening Screening for diabetes mellitus BV (bacterial vaginosis) Unspecified vaginitis and vulvovaginitis Nausea Nausea alone documented in this encounter [facility] No data available for this section [facility] Summary Purpose Family History No Family History Records FoundNo Family History Records FoundNo Family History Records Found Advance Directives No Advanced Directives Records FoundNo Advanced Directives Records FoundNo Advanced Directives Records Found Additional Source Comments INFORMATION SOURCE (unrecogn ized section and content) DATE CREATED AUTHOR 01/17/2022 [facility] DATE CREATED AUTHOR AUTHOR'S ORGANIZ ATION 02/26/2023 [facility] DATE CREATED AUTHOR AUTHOR'S ORGANIZ ATION 08/22/2023 [facility] Specialists EPIC Patient Care team informatio n (unrecognized section and content) Pattern Worker Relationship Specialty Start Date End Date Mark Pitts MD [address] [place] [address] PCP - General Family Medicine 04/14/23 Pattern Worker Relationship Specialty Start Date End Date Mark Pitts MD [address] [place] [id number]. [place] [address] PCP - General Family Medicine 04/14/23 Reason [...] BE BASED ON THE PRIMARY CLINICAL RECORDS. [employer] provides no warranty or guarantee of the accuracy or completeness of information in this document.
[2023-09-16 15:27] VITALS: O2SAT 97
--- NOTE | 2023-09-16 15:29 | ED.GENADUL1 ---
HPI - General Adult General Chief complaint: Upper Respiratory Infection Stated complaint: CONGESTION Time Seen by Provider: 09/16/23 15:10 Source: patient Mode of arrival: walk-in History of Present Illness HPI narrative: Nasal congestion, cough, sore throat, achiness, subjective fever began 2 days ago. Daughter had same symptoms starting about a week ago. Patient said that she is . She has been taking OTC cold medicine that contains tylenol. She said that she vomited up phlegm today. No vaginal bleeding or new -related symptoms. No urinary symptoms Related Data Previous Rx's Medication Instructions Recorded clindamycin HCl 300 mg capsule 300 mg PO TID 10 days #30 caps 03/06/23 cephalexin 500 mg capsule 500 mg PO Q8H 7 days #21 caps 03/28/23 ondansetron 4 mg disintegrating 4 mg PO Q6H PRN nausea and 03/28/23 tablet vomiting #12 tabs Allergies Allergy/AdvReac Type Severity Reaction Status Date / Time amoxicillin Allergy Severe Verified 03/06/23 17:46 codeine Allergy Severe Verified 03/06/23 17:46 ibuprofen Allergy Severe Verified 03/06/23 17:46 Penicillins Allergy Severe Verified 03/06/23 17:46 Exam Narrative Exam Narrative: Nurses notes and vital signs reviewed and patient is not hypoxic. afebrile General: Well-appearing and in no apparent distress. Skin: Warm, dry, no pallor noted. No rash. Head: Normocephalic, atraumatic. Neck: Supple, non-tender. Eye: Pupils are equal, round and EOMI. No scleral icterus. Ears, Nose, Mouth, and Throat: TM are clear, no posterior oropharynx erythema. Mild nasal mucosal hypertrophy and rhinorrhea, uvula is mid-line Oral mucosa is moist Cardiovascular: Tachycardia. Respiratory: No accessory muscle use or respiratory distress. Lungs are clear to auscultation, no wheezing, rales or rhonchi Back: No CVA tenderness Musculoskeletal: normal ROM, no lower extremity edema/swelling GI: Abdomen is soft, non-distended. Normal bowel sounds. Gravid uterus. No tenderness to palpation. No rebound, guarding, or rigidity noted. Neurological: A&O x4. No cranial nerve dysfunction observed. No truncal ataxia. Moves all extremities. Sensation intact. Psychiatric: Cooperative and interactive. Normal mood and affect. Constitutional Vital Signs, click to edit/add: Last Vital Signs Temp 98.2 F 09/16/23 15:12 Pulse 118 H 09/16/23 15:12 Resp 20 09/16/23 15:12 BP 102/70 09/16/23 15:12 Pulse Ox 97 09/16/23 15:27 O2 Del Method Room Air 09/16/23 15:27 Course Vital Signs Vital signs: Vital Signs Temperature 98.2 F 09/16/23 15:12 Pulse Rate 118 H 09/16/23 15:12 Respiratory Rate 20 09/16/23 15:12 Blood Pressure 102/70 09/16/23 15:12 Pulse Oximetry 98 09/16/23 15:12 Oxygen Delivery Method Room Air 09/16/23 15:12 Temperature 98.2 F 09/16/23 15:12 Pulse Rate 118 H 09/16/23 15:12 Respiratory Rate 20 09/16/23 15:12 Blood Pressure 102/70 09/16/23 15:12 Pulse Oximetry 97 09/16/23 15:27 Oxygen Delivery Method Room Air 09/16/23 15:27 Medical Decision Making MDM Narrative Medical decision making narrative: Patient's symptoms and exam consistent with viral syndrome and associated upper respiratory symptoms. Patient given reassurance, instructed to take tylenol for fever and zofran,which she has at home, for nausea or vomiting. Close follow up with her OB recommended. Discharge Plan Discharge Stand Alone Forms: Portal Instructions Chief Complaint: Upper Respiratory Infection Clinical Impression: Upper respiratory infection, Acute viral syndrome Patient Disposition: Home, Self-Care Time of Disposition Decision: 15:33 Prescriptions / Home Meds: No Action clindamycin HCl 300 mg capsule 300 mg PO TID 10 Days Qty: 30 0RF cephalexin 500 mg capsule 500 mg PO Q8H 7 Days Qty: 21 0RF ondansetron 4 mg tablet,disintegrating 4 mg PO Q6H PRN (Reason: nausea and vomiting) Qty: 12 0RF Instructions: Upper Respiratory Infection (ED), Viral Syndrome (ED) Referrals: Physician,Non-Staff, MD [Primary Care Provider] - 1 week Broderick Nickerson DO [Physician] - As needed
[2023-09-16] MEDS: ONDANSETRON 4 MG RAPDIS TABLET SL (15:40)
== END 2023-09-16 15:45 | disposition home or self-care (01) ==
PROVIDERS: Emergency Provider Emergency Medicine
DX: O98.519 Other viral diseases complicating pregnancy, unspecified trimester (principal); B34.9 Viral infection, unspecified; J06.9 Acute upper respiratory infection, unspecified; Z3A.00 Weeks of gestation of pregnancy not specified
CPT/HCPCS: 99283

== ENCOUNTER 2023-09-19 09:56 | Emergency (ER) | payer OTHER, SELFPAY ==
[2023-09-19 10:05] VITALS: BP 115/69; PULSE 93; RESP 16; TEMP 36.7; O2SAT 97; BMI 28.9
--- NOTE | 2023-09-19 10:22 | XR_ITS ---
The [address] [address] Patient Name: RJ ELENA MRN: [id number] date: 1990 Sex: F Assigned Patient Location: ER Current Patient Location: ER Accession/Order Number: [id number] Exam Date: 09/19/2023 10:35 Report Date: 09/19/2023 10:48 At the request of: LAUREN ACE Procedure: XR chest 1V EXAM: Chest x-ray HISTORY: . cough . COMPARISON: 03/22/2019 TECHNIQUE: Single view of the chest FINDINGS: Heart is normal in size. There is prominence of the bronchovascular markings. Lungs are free of focal infiltrates. No effusion is noted. Grossly no bony abnormality is appreciated. XR/XR chest 1V IMPRESSION: Slight prominence of the bronchovascular markings sec testing bronchitis. No focal areas of consolidation. Electronically authenticated by: FELICITAS AMEZCUA Date: 09/19/2023 10:48
[2023-09-19 10:28] LABS: Adenovirus NOT DETECTED (NOT DETECTE); Bordetella parapertussis NOT DETECTED (NOT DETECTE); Coronavirus 229E NOT DETECTED (NOT DETECTE); Coronavirus HKU1 NOT DETECTED (NOT DETECTE); Coronavirus NL63 NOT DETECTED (NOT DETECTE); Coronavirus OC43 NOT DETECTED (NOT DETECTE); Human Metapneumovirus NOT DETECTED (NOT DETECTE); Human Rhinovirus/Enterovirus NOT DETECTED (NOT DETECTE); Influenza A NOT DETECTED (NOT DETECTE); Mycoplasma pneumoniae NOT DETECTED (NOT DETECTE); Parainfluenza Virus 1 NOT DETECTED (NOT DETECTE); Parainfluenza Virus 2 NOT DETECTED (NOT DETECTE); Parainfluenza Virus 3 NOT DETECTED (NOT DETECTE); Parainfluenza Virus 4 NOT DETECTED (NOT DETECTE); Respiratory Syncytial Virus NOT DETECTED (NOT DETECTE); SARS-CoV-2 NOT DETECTED (NOT DETECTE)
--- NOTE | 2023-09-19 10:29 | ED_ITS ---
HPI - URI/Sore Throat General Chief Complaint: Upper Respiratory Infection Stated Complaint: URI Time Seen by Provider: 09/19/23 10:00 Source: patient and family Limitations: no limitations History of Present Illness HPI Narrative: 33-year-old female to the emergency department with chief complaint of cough, sore throat, nasal congestion, malaise, chills, fever that's been ongoing for the last 5-7 days. Patient reports that she has not made a significant improvement since the onset of illness. She is seen at her regular OB scheduled outpatient appointment as she is currently thirty-three weeks gestation. There referred her to the emergency department for evaluation for pneumonia. She denies any chest pain or shortness of breath. She reports nausea and vomiting which has been typical for her throughout this . She's been taking Zofran at home with relief. Related Data Previous Rx's Medication Instructions Recorded clindamycin HCl 300 mg capsule 300 mg PO TID 10 days #30 caps 03/06/23 cephalexin 500 mg capsule 500 mg PO Q8H 7 days #21 caps 03/28/23 ondansetron 4 mg disintegrating 4 mg PO Q6H PRN nausea and 03/28/23 tablet vomiting #12 tabs albuterol sulfate 90 mcg/actuation 2 inh inhalation Q4H PRN shortness 09/19/23 breath activated powder inhaler of breath or wheezing #1 ea dextromethorphan-guaifenesin ER 60 1 tab PO BID #14 tabs 09/19/23 mg-1,200 mg tab,extend release,12hr (Mucinex DM) oseltamivir 75 mg capsule (Tamiflu) 75 mg PO BID 5 days #10 caps 09/19/23 prednisone 20 mg tablet 40 mg (2 x 20 mg) PO DAILY 5 days 09/19/23 #10 tabs Allergies Allergy/AdvReac Type Severity Reaction Status Date / Time amoxicillin Allergy Severe Verified 09/19/23 10:13 codeine Allergy Severe Verified 09/19/23 10:13 ibuprofen Allergy Severe Verified 09/19/23 10:13 Penicillins Allergy Severe Verified 09/19/23 10:13 Review of Systems ROS Status of ROS 10 or more systems reviewed and unremark able except as noted in history and below PFSH PFS Social History Smoking status: Current every day smoker Exam Narrative Exam Narrative: VITALS: I have reviewed the triage vital signs. GENERAL: Well developed, well appearing adult in no acute distress. NEURO: Alert and oriented. Moves all extremities. Face is symmetric and expressive. EYES: PERRL. No scleral icterus or conjunctival injection. No discharge. HENT: Normocephalic, atraumatic. Hearing is grossly intact. Bilateral nasal congestion with clear discharge. Mucous membranes moist. Uvula midline. No unilateral peritonsillar swelling. Tympanic membranes w/ serous effusion, no evidence of infection bilaterally. NECK: No JVD. Patient moves neck without restriction. No cervical lymphadenopathy. CARDIO: Rhythm regular. Normal rate. No murmur, rub, or gallop. Pulses equal bilaterally in the upper and lower extremity. No lower extremity edema. PULM: Rhonchi that clear with coughing, otherwise clear. Dry cough on exam. No conversational dyspnea. No splinting, stridor, or accessory muscle use. GI/: Abdomen is soft and non-tender. Normoactive bowel sounds. EXTREMITIES: Symmetric muscle bulk. No joint swelling. No clubbing, cyanosis, or deformity. SKIN: Warm and dry. Normal turgor. No rash or lesions appreciated. PSYCH: Mood, affect, and interaction is appropriate to the setting. Constitutional Vital Signs, click to edit/add: Last Vital Signs Temp 98.1 F 09/19/23 10:05 Pulse 93 H 09/19/23 10:05 Resp 16 09/19/23 10:05 BP 115/69 09/19/23 10:05 Pulse Ox 97 09/19/23 10:05 O2 Del Method Room Air 09/19/23 10:05 Course Vital Signs Vital signs: Vital Signs Temperature 98.1 F 09/19/23 10:05 Pulse Rate 93 H 09/19/23 10:05 Respiratory Rate 16 09/19/23 10:05 Blood Pressure 115/69 09/19/23 10:05 Pulse Oximetry 97 09/19/23 10:05 Oxygen Delivery Method Room Air 09/19/23 10:05 Temperature 98.1 F 09/19/23 10:05 Pulse Rate 93 H 09/19/23 10:05 Respiratory Rate 16 09/19/23 10:05 Blood Pressure 115/69 09/19/23 10:05 Pulse Oximetry 97 09/19/23 10:05 Oxygen Delivery Method Room Air 09/19/23 10:05 MDM - URI/Sore Throat MDM Narrative Medical decision making narrative: Well-appearing 33-year-old female to the emergency department with chief complaint of flulike symptoms. Vital stable, patient is afebrile. She is in no restaurant distress. She appears well hydrated and is drinking waterin the room and infact asks for water refill on exam. History and exam suggest viral upper respiratory tract infection. She is sent over by OB for rule out pneumonia. Chest x-ray and viral panel are ordered. Patient agrees with this plan. Chest x-ray finding suggesting bronchitis. There is no pneumonia. Influenza B is positive. Strep negative. I called and discussed findings with Bhumika Castro PA-C of Dr. Nickerson's office who sent the patient. They would like Tamiflu to be prescribed. They are okay with prednisone, albuterol, Mucinex DM. Findings discussed with the patient. She agrees with therapy. Return precautions were discussed. All questions were answered. The patient was discharged home. Medical Records Attestation: I reviewed the patient's medical records. Lab Data Attestation: I reviewed the patient's lab results. Labs: Lab Results 09/19/23 Range/Units 10:20 Adenovirus (PCR) Not detected (NOT DETECTE) C. pneumoniae DNA (PCR) Not detected (NOT DETECTE) Coronavirus Type OC43 Not detected (NOT DETECTE) Coronavirus Type HKU1 Not detected (NOT DETECTE) Coronavirus Type 229E Not detected (NOT DETECTE) Coronavirus Type NL63 Not detected (NOT DETECTE) Human Metapneumovir PCR Not detected (NOT DETECTE) M. pneumoniae (PCR) Not detected (NOT DETECTE) Parainfluenza PCR Not detected (NOT DETECTE) Parainfluenza 2 (PCR) Not detected (NOT DETECTE) Parainfluenza 3 (PCR) Not detected (NOT DETECTE) Parainfluenza 4 (PCR) Not detected (NOT DETECTE) RSV (RT-PCR) Not detected (NOT DETECTE) Entero/Rhino (PCR) Not detected (NOT DETECTE) SARS-CoV-2 (PCR) Not detected (NOT DETECTE) Streptococcus Screen Negative Bordetella pertussis (PCR) Not detected (NOT DETECTE) B parapertussis DNA PCR Not detected (NOT DETECTE) Influenza Type A (PCR) Not detected (NOT DETECTE) Influenza Type B (PCR) Detected A (NOT DETECTE) Imaging Data Chest x-ray: Radiologist's impression: ITS Impressions Chest X-Ray 09/19/23 10:22 IMPRESSION: Slight prominence of the bronchovascular markings sec testing bronchitis. No focal areas of consolidation. Electronically authenticated by: FELICITAS AMEZCUA Date: 09/19/2023 10:48 Discharge Plan Discharge Stand Alone Forms: Portal Instructions Chief Complaint: Upper Respiratory Infection Clinical Impression: Influenza B, Bronchitis Patient Disposition: Home, Self-Care Time of Disposition Decision: 11:56 Condition: Good Prescriptions / Home Meds: New dextromethorphan-guaifenesin [Mucinex DM] 60-1,200 mg tablet extended release 12 hr 1 tab PO BID Qty: 14 0RF prednisone 20 mg tablet 40 mg PO DAILY 5 Days Qty: 10 0RF albuterol sulfate 90 mcg/actuation aerosol powdr breath activated 2 inh inhalation Q4H PRN (Reason: shortness of breath or wheezing) Qty: 1 0RF oseltamivir [Tamiflu] 75 mg capsule 75 mg PO BID 5 Days Qty: 10 0RF No Action clindamycin HCl 300 mg capsule 300 mg PO TID 10 Days Qty: 30 0RF cephalexin 500 mg capsule 500 mg PO Q8H 7 Days Qty: 21 0RF ondansetron 4 mg tablet,disintegrating 4 mg PO Q6H PRN (Reason: nausea and vomiting) Qty: 12 0RF Print Language: Tuvaluan Instructions: Influenza (ED), Acute Bronchitis (ED) Referrals: Broderick Nickerson DO [Physician] - 1 week (FOLLOW-UP SCHEDULED. RETURN TO THE ED WITH NEW OR WORSENING SYMPTOMS. ) Physician,Non-Staff, MD [Primary Care Provider] - 1 week
[2023-09-19 10:37] LABS: Internal Control Within Normal Limits; Strep A Antigen Screen Negative
[2023-09-19 11:24] LABS: Influenza B DETECTED (NOT DETECTE)
== END 2023-09-19 12:15 | disposition home or self-care (01) ==
PROVIDERS: Emergency Provider Student in an Organized Health Care Education/Training Program
DX: O99.513 Diseases of the respiratory system complicating pregnancy, third trimester (principal); J10.1 Influenza due to other identified influenza virus with other respiratory manifestations; J40 Bronchitis, not specified as acute or chronic; Z3A.33 33 weeks gestation of pregnancy; Z79.899 Other long term (current) drug therapy; O99.333 Smoking (tobacco) complicating pregnancy, third trimester; F17.210 Nicotine dependence, cigarettes, uncomplicated; Z20.822 Contact with and (suspected) exposure to COVID-19
CPT/HCPCS: 0202U; 71045; 87070; 87880; 99284

== ENCOUNTER 2023-09-25 11:28 | Outpatient (OUT) | payer OTHER, SELFPAY ==
[2023-09-25 11:41] LABS: Basophils Percent Auto 0.2 % (0.2-2.0); Eosinophils Absolute Auto 0.1 10^3/uL (0.0-0.7); Eosinophils Percent Auto 1.1 % (0.9-7.0); Hematocrit 29.6 % (36.0-48.0); Hemoglobin 9.3 g/dL (12.0-16.0); Immature Granulocytes Abs Auto 0.19 10^3/uL (0.00-0.03); Immature Granulocytes Pct Auto 1.6 % (0.0-0.5); Lymphocytes Absolute Auto 2.8 10^3/uL (1.2-3.8); Lymphocytes Percent Auto 23.2 % (20.5-60.0); Mean Corpuscular HGB Conc 31.4 g/dL (29.9-35.2); Mean Corpuscular Hemoglobin 24.5 pg (26.7-34.0); Mean Corpuscular Volume 78.1 fL (81.0-99.0); Mean Platelet Volume 9.9 fL (9.5-13.5); Monocytes Absolute Auto 0.5 10^3/uL (0.3-0.8); Monocytes Percent Auto 4.3 % (1.7-12.0); Neutrophils Absolute Auto 8.5 10^3/uL (1.4-6.5); Neutrophils Percent Auto 69.6 % (43.0-75.0); Platelet Count 196 10^3/uL (150-450); Red Blood Count 3.79 10^6/uL (4.20-5.40); Red Cell Distribution Width 15.2 % (11.0-15.0); White Blood Count 12.2 10^3/uL (4.0-11.0)
--- OUTSIDE RECORDS SUMMARY | 2023-09-25 11:49 | XMS_ITS | CCD ---
Author Name Unknown Address [address] [place] [address] Organization [facility] Care Team Providers Care D[facility] Vat Worker Name Role Phone Mark Pitts Primary Care Physician [phone] PHILLIP LORA Admitting Unavailable HEBER, DR PRABHU [...] Hood Attending Unavailable HAIDER, John Attending Unavailable John MALONEY Attending Unavailable Willa ANDERSON Attending Unavailable Willa ANDERSON Admitting Unavailable Quita Clark Attending Unavailable Solo Kimble Attending Unavailable Mark Pitts MD Primary Care Provider BRODERICK NICKERSON Attending Unavailable BHUMIKA MO Attending Unavailable BHUMIKA MO Attending Unavailable BRODERICK NICKERSON Attending Unavailable BHUMIKA MO Attending Unavailable Allergies Allergy Classification Reported Allergen(s) Allergy Type Date of Onset Reaction(s) Facility (11 sources) Codeine; Translations: [codeine] Drug Allergy 3 [facility] (8 sources) Penicillin; Translations: [penicillin] Drug Allergy [facility] (1 source) Clindamycin Drug Allergy [facility] (1 source) Codeine Drug Allergy 4 [facility] (1 source) Penicillins Drug allergy (disorder) 4 [facility] (10 sources) Ibuprofen; Translations: [ibuprofen] Drug Allergy 3 Anaphylaxis (disorder), [facility] (6 sources) Amoxicillin; Translations: [amoxicillin] Drug Allergy 3 [facility] (3 sources) Penicillins Propensity to adverse reactions 3 [facility] Medications Current Medications Medication Drug Class(es) Dates Sig (Normalized) Sig (Original) Albuterol (Eqv-ProAir HFA) 90 mcg/inh inhalation aerosol (1 source) Start: 02-26-2023 End: 03-05-2023 take 2 puff(s) by inhalation every four hours Albuterol (Eqv-ProAir HFA) 90 mcg/inh inhalation aerosol 2 puff(s), Inhalation, q4hr for 7 day(s), 8.5 gm, Refill(s) 0, [facility], 160, cm, 02/26/23 15:59:00 EDT, Height/Length Dosing, 85.6, kg, 02/26/23 15:59:00 EDT, Weight Dosing Start Date: 02/26/23 Stop Date: 03/05/23 Status: Ordered brompheniramine maleate 0.4 mg/ml / dextromethorphan hydrobromide 2 mg/ml / pseudoephedrine hydrochloride 6 mg/ml oral solution (9 sources) alpha-Adrenergic Agonist, Uncompetitive J-oqqded-V-aspartat e Receptor Antagonist, Sigma-1 Agonist Start: 02-27-2023 [...] for cold symptoms, 200 mL, Refill(s) 0, [facility], 160, cm, 02/26/23 15:59:00 EDT, Height/Length Dosing, 85.6, kg, 02/26/23 15:59:00 EDT, Weight Dosing Start Date: 02/26/23 Status: Ordered ciprofloxacin 3 mg/ml / dexamethasone 1 mg/ml otic suspension (2 sources) Corticosteroid, Quinolone Antimicrobial Start: 12-30-2022 End: 01-06-2023 Ciprodex 0.3%-0.1% Susp-Otic 5 drop(s), Otic, BID for 7 day(s), 7.5 mL, Refill(s) 0, [facility] 1985, 160, cm, 12/30/22 13:14:00 EDT, Height/Length Dosing, 85.6, kg, 12/30/22 13:14:00 EDT, Weight Dosing Start Date: 12/30/22 Stop Date: 01/06/23 Status: Ordered [id number] 0.3 ml EPINEPHrine 1 mg/ml auto-injector (9 [...] inventory, # 1 kit(s), Refills(s) 0, Pharmacy: [facility] 1985, 160, cm, 04/14/22 [...] day(s), # 7 tab(s), Refills(s) 0, Pharmacy: [facility] 1985, 160, cm, 04/14/22 14:56:00 EDT, Height/Length Dosing, 83, kg, 04/14/22 14:56:00 EDT, Weight Dosing Start Date: 04/14/22 Stop Date: 04/21/22 Status: Ordered Start: 11-19-2021 End: 11-26-2021 take 1 tablet by mouth once daily at bedtime Pepcid 40 mg Tab 40 mg = 1 tab(s), Oral, Once a day (at bedtime), X 7 day(s), # 7 tab(s), Refills(s) 0, Pharmacy: [facility] 1986, 160, cm, 11/19/21 15:30:00 [...] l route once daily Flonase 0.05 mg/inh Spivey 2 spray(s), Nasal, Daily, 16 gram, Refill(s) 0, each nostril, [facility], 160, cm, 12/31/22 [...] day(s), # 14 tab(s), Refills(s) 0, Pharmacy: [facility] 1985, 160, cm, 02/26/23 [...] day(s), # 15 tab(s), Refills(s) 0, Pharmacy: [facility] 1985, 160, cm, 02/26/23 15:59:00 EDT, Height/Length Dosing, 85.6, kg, 02/26/23 15:59:00 EDT, Weight Dosing Start Date: 02/26/23 Stop Date: 03/03/23 Status: Ordered Start: 09-05-2022 End: 09-12-2022 take 3 tablets by mouth once daily predniSONE 20 mg Tab 60 mg = 3 tab(s), Oral, Daily, X 7 day(s), # 21 tab(s), Refills(s) 0, Pharmacy: [facility] 1985, 160, cm, 09/05/22 21:08:00 EST, Height/Length Dosing, 85.6, kg, 09/05/22 21:08:00 EST, Weight Dosing Start Date: 09/05/22 Stop Date: 09/12/22 Status: Ordered Start: 04-14-2022 End: 04-21-2022 take 3 tablets by mouth once daily predniSONE 20 mg Tab 60 mg = 3 tab(s), Oral, Daily, X 7 day(s), # 21 tab(s), Refills(s) 0, Pharmacy: [facility] 1985, 160, cm, 04/14/22 14:56:00 EDT, Height/Length Dosing, 83, kg, 04/14/22 14:56:00 EDT, Weight Dosing Start Date: 04/14/22 Stop Date: 04/21/22 Status: Ordered Start: 11-19-2021 End: 11-26-2021 take 3 tablets by mouth once daily predniSONE 20 mg Tab 60 mg = 3 tab(s), Oral, Daily, X 7 day(s), # 21 tab(s), Refills(s) 0, Pharmacy: [facility] 1985, 160, cm, 11/19/21 [...] q4hr, # 14 tab(s), Refills(s) 0, Pharmacy: [facility] 1985 Start Date: 03/21/19 Status: Ordered traMADol hydrochloride 50 mg oral tablet (1 source) Opioid Agonist Start: 12-31-2022 End: 01-03-2023 take 1 tablet by mouth every six hours as needed for pain traMADOL 50 mg Tab 50 mg = 1 tab(s), Oral, q6hr, PRN for pain, X 3 day(s), # 12 tab(s), Refills(s) 0, Pharmacy: [facility] 1985, 160, cm, 12/31/22 10:20:00 EDT, Height/Length Dosing, 85.6, kg, 12/31/22 10:20:00 EDT, Weight Dosing Start Date: 12/31/22 Stop Date: 01/03/23 Status: Ordered Zofran ODT 4 mg Tab-Dis (14 sources) Start: 08-05-2019 take 1 tablet by mouth three times daily Zofran ODT 4 mg Tab-Dis 4 mg = 1 tab(s), Oral, TID, # 15 tab(s), Refills(s) 0, Pharmacy: [facility] 1985, 160, cm, 08/05/19 9:28:00 EST, Height/Length Measured, 86.5, kg, 08/05/19 9:28:00 EST, Weight Measured Start Date: 08/05/19 Status: Ordered Start: 03-21-2019 take 1 tablet by savannah th every six hours Zofran ODT 4 mg Tab-Dis 4 mg = 1 tab(s), Oral, q6hr, # 10 tab(s), Refills(s) 0, Pharmacy: [facility] Start Date: 03/21/19 [...] te Episodic/Chronic Other aftercare (1 source) Other custodial (current) drug therapy; Translations: [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 CURRENT DRUG THERAPY] Onset: 07-07-2021 Episodic Other [...] [Ratio] 15.0 % 11.0 - 15.0 % [facility] Hematocrit (Bld) [Volume fraction] 31.4 % Low 36.0 - 48.0 % [facility] Hemoglobin (Bld) [Mass/Vol] 9.7 g/dL Low 12.0 - 16.0 g/dL [facility] IMMATURE GRANULOCYTES ABS AUTO 0.05 High [facility] Immature granulocytes/100 WBC (Bld) 0.4 % 0.0 - 0.5 % [facility] Interpretation and review of laboratory results Abnormal [facility] LYMPHOCYTES ABSOLUTE AUTO 2.6 [facility] Lymphocytes/100 WBC (Bld) 19.4 % Low 20.5 - 60.0 % [facility] MCH (RBC) [Entitic mass] 25.3 pg Low 26.7 - 34.0 pg [facility] MCHC (RBC) [Mass/Vol] 30.9 g/dL 29.9 - 35.2 g/dL [facility] MCV (RBC) [Entitic vol] 82.0 fL 81.0 - 99.0 fL [facility] MONOCYTES ABSOLUTE AUTO 0.3 [facility] Monocytes/100 WBC (Bld) 2.6 % 1.7 - 12.0 % [facility] NEUTROPHILS ABSOLUTE AUTO 10.2 High [facility] Neutrophils/100 WBC (Bld) 76.7 % High 43.0 - 75.0 % [facility] Platelet mean volume (Bld) [Entitic vol] 10.6 fL 9.5 - 13.5 fL [facility] TBH EO # 0.1 [facility] TB PLT 176 [facility] RBC 3.83 Low [facility] WBC 13.3 High [facility] Urinalysis macro (dipstick) panel (U)on 08-21-2023 Bilirubin, UA Negative Negative - 4(70) +++ mg/dL [facility] Blood, UA Negative Negative - 50 Juan Alberto/mcL [facility] Clarity, UA Clear [facility] Color, UA Yellow [facility] Glucose, UA Negative Negative - 2000(110) ++++ mg/dL [facility] Interpretation and review of laboratory results Normal [facility] Ketones, UA Negative Negative - 160(16) ++++ mg/dL [facility] Leukocytes, UA Negative Negative - 500+++ Geovani/mcL [facility] Nitrite, UA Negative Negative - Positive [facility] pH, UA 7.0 5 - 9 [facility] Protein, UA Negative Negative - 1999(20) ++++ mg/dL [facility] Spec Grav, UA 1.015 1 - 1.03 [facility] Urobilinogen, UA 0.2 0.2 - 12 mg/dL [facility] Cytology Cervical or vaginal smear or scraping studyon 06-15-2023 [facility] Consent for Treatmenton 02-08 Consent for Treatment [id number] .00CD:127 Normal [facility] Discharge Instructionson Discharge Instructions [id number]# 1.00CD:127 Normal [facility] ED Clinical Summaryon 2022 ED Clinical Summary [place] [id number] ED Clinical Summary Person Information Name: RJ ELENA Calista/[facility] Age: 32 Years : 1990 Sex: Female Language: Burmese PCP: Mark Pitts DO Marital Status: Single Phone: [phone] Visit Id: Visit Reason: Shortness of breath; [...] 02/26/2023 18:10:02 02/26/2023 18:10:02 02/26/2023 18:10:02 ADDRESS: [address] [place] [address] [place] [id number] [facility] DOC NOTES: MEDICAL INFORMATION: Prescriptions Given: New Medications [facility], [address] [place], [place] [id number], [phone] albuterol (Albuterol (Eqv-ProAir HFA) 90 mcg/inh inhalation aerosol) 2 Puffs Inhalation every 4 hours for 7 Days. Refills: 0. guaifenesin (Mucinex 600 mg Tab-ER) 1 Tablets By Mouth every 12 hours for 7 Days. Refills: 0. Medications to Continue Taking That Have Changed [facility], [address] [place] [id number], [phone] START: brompheniramine/dextr omethorphan/PSE (Bromfed DM oral syrup) [...] Refills: 0. fluticasone nasal (Flonase 0.05 mg/inh Spivey) 2 Sprays Nasal Inhalation every day. each [...] Follow up: With: Address: When: Mark Pitts [address] [place] [address] Business (1) In 3 days 03/01/2023 Comments: [...] symptoms. DIAGNOSIS: Bronchitis; Upper respiratory infection Normal [facility] ED Note-Physicianon 02-27-20 ED Note-Physician Basic Information [...] and Complexity of Problems Differential Diagnosis: [] [facility] Data External documents reviewed: [] My [...] taken them within the last 30 days. [[facility] PERFORMANCE EXCEPTION/EXCLUSION] [ ] The patient had [...] for 7 day(s), 8.5 gm, Refill(s) 0, [facility], 160, cm, 02/26/23 15:59:00 EDT, Height/Length Dosing, 85.6, kg, 02/26/23 15:59:00 EDT, Weight Dosing brompheniramine/dextr omethorphan/PSE, 5 mL, Oral, QID for cold symptoms, 200 mL, [facility](s) 0, [facility], [facility], cm, 02/26/23 15:59:00 EDT, Height/Length Dosing, 85.6, kg, 02/26/23 15:59:00 EDT, Weight Dosing guaifenesin, 600 mg = 1 tab(s), Oral, q12hr, X 7 day(s), # 14 tab(s), Refills(s) 0, [facility], [facility], cm, 02/26/23 15:59:00 EDT, Height/Length Dosing, 85.6, kg, 02/26/23 15:59:00 EDT, Weight Dosing predniSONE, 60 mg = 3 tab(s), Oral, Daily, X 5 day(s), # 15 tab(s), Refills(s) 0, Pharmacy: [facility] (more content not included)... Normal [facility] Comment on above: Result Comment: Elec tronically Signed By: Namrata CAO, Juan Pyle\.br\Date and Time Signed: 02/26/23 18:46 EDT\.br\Electronically Co-Signed By: Charlie Rubalcava DO.haris\Date and Time Co-Signed: 02/26/23 18:51 EDT ED [...] Follow these instructions at home: ? Take rbtt-vik-oqjqrwl and prescription medicines only as told by [...] and water are not available, use hand grocery bagger. ? Avoid contact with people who have [...] is easier to cough up. ? Take velf-xau-cqtkfxw and prescription medicin (more content not included)... Normal [facility] ED Patient Summaryon 023 ED Patient Summary [place] [id number] Patient Discharge Instructions Person Information Name: RJ ELENA Age: 32 Years Arrival Date: 02/26/2023 15:53:15 Discharge Diagnosis: Bronchitis; Upper respiratory infection Primary Care Physician: Mark Pitts DO Provider Information Primary Provider: Charlie Rubalcava DO [employer] Supervisor:Juan Ott PA-C The exam and treatment you received in the Emergency Department were for an urgent problem and are not intended as complete care. It is important that you follow up with a doctor, nurse practitioner, or physician?s music assistant for ongoing care. If your symptoms [...] Instructions: With: Address: When: Mark Pitts [address] [place], [place] [id number] [facility] (1) In 3 days 03/01/2023 Comments: [...] opioids can be used to help relieve rrctnocx-td-axname pain and are often prescribed following a [...] and family) (more content not included)... Normal [facility] MICRO OTHER TESTSOrdered By: Juvenal Macario on 02-26-2023 Rapid COV Int NEG Ctl Pass (02/26/23 4:45 PM) Normal [facility] Man [place] Rapid COV Int POS Ctl Pass (02/26/23 4:45 PM) Normal [facility] [place] SARS-CoV+SARS-CoV-2 (COVID-19) Ag IA.rapid Ql (Resp) Not Detected (02/26/23 4:45 PM) Normal Not Detected [facility] [place] Prescriptions/Work Noteson 0 02-26-2023 Prescriptions/Work Notes [id number]# 1.00CD:127 Normal [facility] Rapid COVID Antigen ([facility])on 02-26-2023 Rapid COV Int NEG Ctl Pass Normal [facility] Comment on above: Performed By: #### 2 [id number] ####[facility] [address] [place] [address] Rapid COV Int POS Ctl Pass Normal [facility] Comment on above: Performed By: #### 2 [id number] ####[facility] [address] [place] [address] SARS-CoV+SARS-CoV-2 (COVID-19) Ag IA.rapid Ql (Resp) Not detected Normal Not Detected [facility] Comment on above: Result Comment: The Altic[employer]? System for Rapid Detection of SARS-CoV-2 is [...] or revoked sooner. Performed By: #### 2 [id number] ####[place] [address] ADMITTED TO INTENSIVE CARE UNIT FOR CONDITION OF INTEREST:FIND:PT: NO Normal [facility] Comment on above: Performed By: #### 2 [id number] ####[place] [address] EMPLOYED IN A HEALTHCARE SETTING:FIND:PT: NO Normal [facility] Comment on above: Performed By: #### 2 [id number] ####[place] [address] FIRST TEST FOR CONDITION OF INTEREST:FIND:PT: Unknown Normal [facility] Comment on above: Performed By: #### 2 [id number] ####[facility] [address] [place] [address] HAS SYMPTOMS RELATED TO CONDITION OF INTEREST:FIND:PT: YES Normal [facility] Comment on above: Performed By: #### 2 [id number] ####[place] [address] HOSPITALIZED FOR CONDITION OF INTEREST:FIND:PT: NO Normal [facility] Comment on above: Performed By: #### 2 [id number] ####[facility] [address] [place] [address] STATUS:FIND:PT: NO Normal [facility] Comment on above: Performed By: #### 2 [id number] ####[place] [address] [facility]ID[facility] IN [facility]TING:FIND:PT: NO Normal [facility] Comment on above: Performed By: #### 2 [id number] ####[facility] [address] [place] [address] XR Chest 2 Viewson 3 XR Chest [...] mGy = na DAP = na Normal [facility] In office Testingon 01-31-20 23 In office Testing [id number]#1 .00CD:127 Normal [facility] Registrationon 01-30-2023 Registration [id number]# 1.00CD:127 Normal [facility] ED Note-Physicianon 01-10-20 ED Note-Physician Basic [...] Daily, 16 gram, Refill(s) 0, each nostril, [facility], 160, cm, 12/31/22 10:20:00 EDT, Height/Length Dosing, 85.6, kg, 12/31/22 10:20:00 EDT, Weight Dosing tramadol, 50 mg = 1 tab(s), Oral, q6hr, PRN for pain, X 3 day(s), # 12 tab(s), Refills(s) 0, [facility], [facility], cm, 12/31/22 10:20:00 EDT, Height/Length Dosing, 85.6, kg, 12/31/22 10:20:00 EDT, Weight Dosing Disposition Plan Patient Discharge Condition Stable Discharge Disposition To home Discharge Prescription List Prescriptions Ciprodex 0.3%-0.1% Susp-Otic, 5 drop(s), Otic, BID Flonase 0.05 mg/inh Spivey, 2 spray(s), Nasal, Daily traMADOL 50 mg Tab, 50 mg= 1 tab(s), Oral, q6hr, PRN Follow-up With When Contact Information Mark Pitts In 3 days 01/03/2023 EDT [address] [place] [address]- Business (1) Additional Instructions: Follow-up with your primary care provider in 3 to 5 days. If symptoms worsen, do not improve, or new symptoms arise please report back to emergency department for further evaluation. Patient Education Otitis Externa Attestation Patient seen and evaluated by the physician music assistant. Attending physician was present in the emergency department and supervised care. This visit was performed by both the physician and an APC. I performed all aspects of the MDM as documented. This report was transcribed u (more content not included)... [facility] Comment on above: Result Comment: Elec tronically Signed By: Loyd Lange PA-C\.br\Date and Time Signed: 12/31/22 11:53 EDT\.br\Electronically Co-Signed By: Javier Woods DO\.br\Date and Time Co-Signed: 01/09/23 07:15 EDT Consent for Treatmenton 12-09 Consent for Treatment [id number] .00CD:127 Normal [facility] Discharge Instructionson Discharge Instructions [id number] 1.00CD:127 Normal [facility] ED Clinical Summaryon 2022 ED Clinical Summary [address] [address] ED Clinical Summary Person Information Name: RJ ELE[place] Age: 32 Years : 1990 Sex: Female Language: Burmese PCP: Mrak Pitts DO Marital Status: Single Phone: [phone] MRN: [id number] Visit Id: Visit Reason: Ear pain; EAR [...] 10:41:35 ADDRESS: [address] [place] [id number] PHYS DOC NOTES: MEDICAL INFORMATION: Prescriptions Given: New Medications [facility], [address] [place], [place] [id number], [phone] fluticasone nasal (Flonase 0.05 mg/inh Spivey) 2 Sprays Nasal Inhalation every day. each [...] Otitis Externa Follow up: With: Address: When: [address] [place] [address] Business (1) In 3 days 01/03/2023 Comments: Follow-up with your primary care provider in 3 to 5 days. If symptoms worsen, do not improve, or new symptoms arise please report back to emergency department for further evaluation. DIAGNOSIS: Bilateral otitis externa Normal [facility] ED Patient Education Noteon 12-31-2022 ED Patient [...] you start to feel better. ? Take foly-nwy-dzbrtoy and prescription medicines only as told by [...] provider. Document Revised: 09/08/2021 Document Reviewed: 09/08/2021 [employer] Patient Education ? 2022 [employer] Normal [facility] ED Patient Summaryon 023 ED Patient Summary [place] [id number] Patient Discharge Instructions Person Information Name: RJ ELENA Age: 32 Years Arrival Date: 12/31/2022 10:01:25 Discharge Diagnosis: Bilateral otitis externa Primary Care Physician: Mark Pitts DO Provider Information Primary Provider: Javier Woods DO [employer] Supervisor:None The exam and treatment you received in the Emergency Department were for an urgent problem and are not intended as complete care. It is important that you follow up with a doctor, nurse practitioner, or physician?s music assistant for ongoing care. If your symptoms [...] Instructions: With: Address: When: Mark Pitts [address] [place], [place] [address] [email or web address] (1) In 3 days 01/03/2023 Comments: Follow-up [...] opioids can be used to help relieve aedjftyr-sf-auqnly pain and are often prescribed following a [...] and overdose. ? (more content not included)... [facility] Consent for Treatmenton 12-09 Consent for Treatment [id number] .00CD:127 [facility] Discharge Instructionson Discharge Instructions [id number]# 1.00CD:127 [facility] ED Clinical Summaryon 2022 ED Clinical Summary [address] [address] ED Clinical Summary Person Information Name: RJ ELENA [place] Age: 32 Years : 1990 Sex: Female Language: Burmese PCP: Mark Pitts DO Marital Status: Single Phone: [phone] Visit Id: [facility]: [id number] Visit Reason: Ear pain; DOUBLE EAR INFECTION [...] 12/30/2022 13:59:40 12/30/2022 13:59:40 12/30/2022 13:59:40 ADDRESS: [address] [place] [address] [address] [facility] [id number] [facility] DOC NOTES: MEDICAL INFORMATION: Prescriptions Given: New Medications [facility], [address] [place], [place] [address], [phone] ciprofloxacin-dexamet hasone otic (Ciprodex 0.3%-0.1% Susp-Otic) 5 [...] EDUCATION INFORMATION: Instructions: Follow up: With: Address: [facility]: [address] [address] Business (1) In 3 days DIAGNOSIS: Otitis externa, left Normal [facility] ED Note-Physicianon 12-31-19 ED Note-Physician Basic Information [...] for 7 day(s), 7.5 mL, [facility]ill(s) 0, [facility], [facility], cm, 12/30/22 13:14:00 EDT, Height/Length Dosing, 85.6, kg, 12/30/22 13:14:00 EDT, Weight Dosing Disposition Plan Discharge Prescription List Prescriptions Ciprodex 0.3%-0.1% Susp-Otic, 5 drop(s), Otic, BID Follow-up With When Contact Information Mark Pitts In 3 days [address] [place] [id number] [facility] (1) Additional Instructions: Problem List/Past Medical [...] Diagnostic Results No qualifying data available. Normal [facility] Comment on above: Result Comment: Elec tronically Signed By: Javier Woods DO\.br\Date and Time Signed: 12/30/22 13:54 EDT ED Patient Education Noteon 12-30-2022 ED Patient Education Note Normal [facility] ED Patient Summaryon 023 ED Patient Summary [place] [address] Patient Discharge Instructions Person Information Name: RJ ELENA Age: 32 Years Arrival Date: 12/30/2022 13:06:22 Discharge Diagnosis: Otitis externa, left Primary Care Physician: Mark Pitts DO Provider Information Primary Provider: Javier Woods DO [employer] Supervisor:None The exam and treatment you received in the Emergency Department were for an urgent problem and are not intended as complete care. It is important that you follow up with a doctor, nurse practitioner, or physician?s music assistant for ongoing care. If your symptoms [...] Follow-up Instructions: With: Address: When: Mark Pitts [address] [place] [address] Business (1) In 3 days In the event that this physician does not participate in your insurance network, please consult with your insurance company to find a nearby participating provider. Patient Education Materials: A MESSAGE TO ALL PATIENTS REGARDING OPIOIDS PRESCRIPTION OPIOIDS: WHAT YOU NEED TO KNOW Prescription opioids can be used to help relieve dixszrmk-ql-hnwiwl pain and are often prescribed following a [...] be struggling with addiction, tell your health transitional care nurse and ask for guidance or call [facility]?S National Helpline at 1-006-241-DHFL. k Source: Department of Health and Human Services/Adeline (more content not included)... [facility] Registrationon 12-27-2022 Registration [id number]#1. 00CD:127 [facility] Consenton 12-26-2022 Consent [id number]# 1.00CD:127 [facility] Registrationon 12-26-2022 Registration [id number]# 1.00CD:127 [facility] Consent for Treatmenton 12-08 Consent for Treatment [id number]#1 .00CD:127 [facility] Discharge Instructionson Discharge Instructions [id number]#1 .00CD:127 [facility] ED Clinical Summaryon 2022 ED Clinical Summary [place] [id number] ED Clinical Summary Person Information Name: RJ ELENA [place] Age: 32 Years : 1990 Sex: Female Language: Burmese PCP: Mark Pitts DO Marital Status: Single Phone: [phone] Visit Id: Visit Reason: Foot pain-swelling; ROLLED [...] 14:54:11 12/21/2022 14:54:11 12/21/2022 14:54:11 ADDRESS: [address] [place] [address] [address] [facility] [id number] PHYS DOC NOTES: MEDICAL INFORMATION: Prescriptions Given: [...] Ankle Sprain, Phase I Rehab; Ankle Sprain, Gucn-uk-Lytp Follow up: With: Address: When: Mark Pitts [address] [place] [id number] Business (1) In 3 days 12/24/2022 Comments: Follow-up with your primary care provider in 3 to 5 days. If symptoms worsen, do not improve, or new symptoms arise please report back to emergency department for further evaluation. DIAGNOSIS: Left ankle sprain; Sprain of left foot [facility] ED Note-Physicianon 12-22-19 ED Note-Physician Basic Information [...] and Complexity of Problems Differential Diagnosis: [] [facility] Data External documents reviewed: [] My [...] Contact Information Mark Pitts In 3 days 12/24/2022 EDT [address] [phone] Business (1) Additional Instructions: Follow-up with your primary care provider in 3 to 5 days. If symptoms worsen, do not improve, or new symptoms arise please report back to emergency department for further evaluation. Patient Education Foot Sprain Elastic Bandage and RICE Therapy Ankle Sprain, Phase II Rehab Ankle Sprain, Phase I Rehab Ankle Sprain, Mhqn-ns-Tgww Attestation Patient seen and evaluated by the physician music assistant. Attending physician was present in the emergency department and supervised care. This visit was performed by both the physician and an APC. I performed all aspects of the MDM as documented. This report was transcribed using voice recognition software. Every effort was made to ensure accuracy, however, inadvertent (more content not included)... [facility] Comment on above: Result Comment: Elec tronically [...] on your foot. General instructions ? Take ouef-pxo-wlkzhij and prescription medicines only as told by your health care provider. ? When you can walk without pain, wear supportive shoes t (more content not included)... [facility] ED Patient Summaryon 023 ED Patient Summary [place] [id number] Patient Discharge Instructions Person Information Name: RJ ELENA Age: 32 Years Arrival Date: 12/21/2022 13:23:04 Discharge Diagnosis: Left ankle sprain; Sprain of left foot Primary Care Physician: Mark Pitts DO Provider Information Primary Provider: Charlie Rubalcava DO [employer] Supervisor:None The exam and treatment you received in the Emergency Department were for an urgent problem and are not intended as complete care. It is important that you follow up with a doctor, nurse practitioner, or physician?s music assistant for ongoing care. If your symptoms [...] Instructions: With: Address: When: Mark Pitts [address] [place], [place] [phone] Business (1) In 3 days 12/24/2022 Comments: [...] Ankle Sprain, Phase I Rehab; Ankle Sprain, Cmlc-ne-Qrfc A MESSAGE TO ALL PATIENTS REGARDING OPIOIDS PRESCRIPTION OPIOIDS: WHAT YOU NEED TO KNOW Prescription opioids can be used to help relieve lyfxrags-nd-oxonkk pain and are often prescribed following a [...] Drug Administrati (more content not included)... [facility] XR Ankle 3+ Views Lefton XR Ankle [...] mGy = . DAP = . [facility] XR Foot 3+ Views Lefton 12-08 XR [...] Lange FINAL REPORT Dictated: 12/21/2022 2:10 pm mAol Venegas MD, V. Signed (Electronic Signature): 12/21/2022 2:10 pm Signed by: Amol Venegas MD, V. Transcribed by: ESTEVAN Technologist: ORB Technical Comments Radiation Dose: Ka,r in mGy = . DAP = . [facility] Registrationon 12-16-2022 Registration [id number]# 1.00CD:127 [facility] Consenton 12-15-2022 Consent [id number]# 1.00CD:127 [facility] Coding Summary.on 09-06-2022 Coding Summary. CD:[id number] G h0bWw+PGhlYWQ+GP7DLOD xD77hnFUwyT1JV9gUDX6B MYROVQBFPG3YRP4uuPL3S TapX3EjkaFv VhdszJXbUK99OMw3FKJ5l TqdWMkebR3duDAlK9e5Ic XkKA71nQ56TGvbMQUuYbC 3LjZpbjsgbWFy R5siZmVccJUoNek+PHRhY mxlIHdpZHRoPScxMDAlJy NruZulJZ3hFu7qNGAgRCX vbGxhcHNlOiBj s1ysIDMtKRvbTA9exHjoM 1XjnDB5WYVsp2f8Ur26lL I+UKOaGGD0wBnrLQguv41 4JgUjl7rrOQQ9 vSRcAVewIQD3T56hv5M5Y MMdFMRbCWI2rIO4iU0seC xviojoK1UbsMDaXsE4BJO 4pKIonK2jwCur rzobdG8vArc+J68GJV6GM IFAEU9WIad2P2HnPospsS I+CS00ZAKkVQ33sGCdwTB nx5okqGf0WsDa QKTnXXV2sPtoFCsgx6StE BDsI07buWDmy2H0VQFwaK xtbNBsYiWtbHC4gF2sOBd htysgx8wbrlqw Anlda3fuyn27hF06D76yZ YseSCMdDJX3JUDrJUMwtE qdjq5spI1gBk0+MAiuu0l oc4ndvIy3DaMx FEKhqnXnmEheBJS0r3PqB l21G9RwzOxnc0RqXuc9ig 90iCHnz4N7yQS9FBwnPLX moQ4aPIckIpP8 ZQSxWgPqxQ59xGDaLUuaP a7zaBoiwSowOJ6jMHSflf vxLQFagX0dZYLsyIItsKs rAN9uUPZtrhco x584KnJkMCS5ZFLabFNiX 8MdxC1lYkDtKYJuBHVwX7 RpdXJfPNsuA720HHgfFrL 1CELmipQjF9Fq SBQatOmtGfW2d8F0Pq7Vj 6ZhilzfSQA1LCzrEEUsFa K5TjSxYdS1K1KcGqw0WTU myIeoTC3fR2Ql HCEhrxlpvpwjuJZ0XEDyF TQiyU50hMTvUPesRu2jz9 M3z484HTCaMDNppQ53Fg6 udDogMTBwdCBU fA7jlfuro8nyudqtDhHjD JWgBVz6QIj6HTFupYbtIi IgVHY7UwQ0ZKJ1qTCrqJ6 jmFtqqnmhgT6o Oyc+W97qxV3cXXE7ERZ1s dzhKUPmjoMlTY36LC06I1 RyPjwvdGFibGU+PGRpdiB bgNtjZR4wLbFq w0njg6MtHMzlO7FlFHZxL VerTic9JFAqSSI8oLJ8tW 8qFZNaOJicu9J9kNH3K5E jamUqdn7qy4kl ZGSaPCceW37hxQLjs1I6V VDvzQZ0NQYchZkmApDxpU 93Oyc+JJFomJjzj8HtFch ao3fae1ckuZh1 RcYoUHVcigTjfKbrBWH9l 3AaNp00Z86tCOjoMEZcYK ZsQTFyTPEbkIvcxk3inB6 wIi8+PGNvbCB3 mIK0xC8kSHApWeJ6ESiiD 794QqAeuBAgVaoti3iyt2 vnjZg7LuLlBYFpbzYrmYq uZGO0y2ZeGe01 R17oGTcaKRIqOTJyHRVxP JOyuMkqcf7xoL8dDe9+PC 5zg1hfin31uZ72fCR+PHR nTVQ8rCzaJDkb WDXivE6rPLziZpA0SJQhA oWrnK97sHKtEYbbDw4cyF eofIryVI4lFYHbdsjlv18 4IcObv8yxCMHm qWRtETrcVED9M66pb0X0F GFpZIQbLRE7lDB3xK1grZ lnbjogbGVmdDsgdmVydGl jTRctGEiqP720 IHRvcDsnPlBhdGllbnQgT fNpOQc6N4FiSms1NPMbwS mwNE5glTFbOHsuBk5hsQz oiZrjIF3wKKPx cxqck785HaHcp1beLLKgz GBlYOvzVQO6S06nu4D8YD OoZUCkGDG8kCD2hH2nlJx nbjogbGVmdDsg waMlxEweCBnhMNwkU208T HRvcDsnPkJpcnRoIERhdG H7OF30PQ72xWWmn4X0gGB 8Y4EeNCOdqoqj elwchVO7GAVaJMDdwD42M f5bgLudDb2aRUKoAQR4CW UitSHaN0ImaV8cBcWwOJQ xENGqD1VseQYs DRyiC889IXlwNiH0KANiu oMfE4LwXKYahWmsRzM9w5 R3Um4QL9Q1WN38XL60gNA bx2L4gDK2D2Gl XGEmdyslqjyzcFW6LPYbR UNojG89Ag1uxAjlFt3iGM RjKKZ6XXRaiRLzQ0ImxM1 yOiAjMDAwMDAw P7GovNDjPEkhM290WRbaK xT4WPJtluPpD3FbQADeeD ggMwY9k0J0Cu5DGMn8KG7 1HB31eECao9C6 uRJ9U2VsQGLmnwjsykvwu CE9IOQmSPMndN40Rw1xfK szDw8gBMAcQJX2NDDpnME iZ0CvsL0gLfRh VWVyOYYbU7YqiUVpUOpwX 990FUhkLyJ9WENxcrSmE6 ZrFAMlyWmyTfJ6o8X4Qm2 RGUTuRW92CFO0 gYF0DG20KH93V0UmNnski GFibGU+PHRhYmxlIHdpZH RoPScxMDAlJyBzdHlsZT0 rGf0oZEIoUAMw nUpcqAEyWmGnp6otXNWtT OkxES7ymLneZ6JakNO3QD Wqh1w2Tz51D86qU3QbdYP +ZTEerYL7xHP6 iU8sWjJrDaU1KVfkR555Y gQjpIHbBazpd2awh5sqvR c8OkA8FVXydsYsjZbgARR 5n6UtMn03F06c IHdpZHRoPSIxNSUiIHZhb Bucaa1cgE7vMr4+PGNvbC M5tZZ5wI2fSuWtRqT6SIe aH111KbYwnMCk Rcfdr8mnj7tmzJe1IcQxB XThceVpzYezETN4j7MlTv 82S2ChlZgdr0MwZxb9do0 4vBSpg4Z3kPX2 H3QuKYEjnbfvlZIzvNyrH S1wEAPrjutbEXIskW7dXT GeW9a6BcPgEcR4OTswA9Y wlfQ6RMKkbLXu BDpsZBF3Y41be9B9MNAxX QTfQTA6zIV0kW1vqLymlj ogbGVmdDsgdmVydGljYWw bJEagP142AQSq xWnmWFAdqE4tSRZozIYys TfjWA2fLQVnccovLiYVMY CFSQxrXNMXY2MDWPzERSU gRzwvdGQ+PHRk CIS6nYhiTOuuAKCzaD1zQ GSqL9y3UbKqSlE8KCxnE8 StOASypxjbDb85oR1fVvM eMiC5OUcvO8Bn veR8DKMgkPKaNCcvNPL8U 40jv6Q3ZLBjRQLsOWV9vJ W4gV3scIjioydtqWZdqGb gdmVydGljYWwt FNjjH906OGNevXmbQgKuU pC9PcA3KAV7L3HgGsv9EH VjlHcjXG7iqGEuEMgmJv2 afKsaqNurSY8m VANsbsjxFKLahU0jXTJga KXwdRblRJ6lKRGtfbmnq7 80LjUxAWO3ATRsdSOiP0R mlY7sScSqSZEp QGElH9BszHYaJGmmM565U TofXdP8MITdpdZzO2XtRX VysYnlTeW9u0W4Bw6gYlP ZZWFyczwvdGQ+ UHGzGYY6mMnbQTdyNYZdj R4wPAVzD2l3NeHnLwO1BY ncM2AuDBIpijfcHx07jX7 zTvEjSgU7PUim Y8RilrC4MHOnyHHdDMweY VW4H59zw6A9FWZnZVFoHW V9pCZ9dR8cwLovefsqnRJ mdDsgdmVydGlj PYofNQcsQ908TMJonRdaZ kZlbWFsZTwvdGQ+PHRkIH V9tUurPHavXKIuoG2nYSD hH6w4MdCnEzM7 YBejK0JoTIGpttzrDm45z T0gHiPkLrP0IFpfF4Nhnt F8XGRqkKZnRMpyHVW5C07 pf1J0FWMqRZEs TBP4kHH2wN3qaYtjjqfqn GVmdDsgdmVydGljYWwtYW okJ053UZIqoHeyHuTyRJC rGF9nfEbfnQD+ UL79tn55U4NhGzhgLfz7B VWdCXB2iPI9nX3tZLOyZT btl4Q1nBA1C6OzhxAomf0 cx0nmEJBkEVcc U80nyQGxw2H4VBUyaZN6F JXqdQrzGbQtyC81Vic+PG LxyWxuo7DvLqyah4qez5g iiXf8AfDjNJVs mbItjHbhBMX0q0SzAt32L 29sIHdpZHRoPSIzMCUiIH MvwWfsbb9wnW8tVu2+PGN tpZK3eVT2wA3q RyMcIxP7NZetP529ApGqj UCxGvxvv2hou6xcbFc5Px MiLABrndBdvEmaTHO3k7H pTm98B1SkuSuo x0RpCpx4xb70oZVgg2E3f CU0F3UkDVKyyvwbpEMznY dbDF0yRIUtdoxaPWGheT6 bJGFxH3t5NwXm GfA7YHtbG9BmdhS6VBIcd JRlXXUpkJDKyP5oprpov1 ytwpyuPtDjAVZtOLv7JMe 0LWFsaWduOiBs VQG5UwW1LIH3tZDirW6sp NxcdzhosS6iRvm+UGh5c2 gmcBQmFX9yaLK6KH64KS6 8aQUcx1Q1jXH3 O4TpIQTsrfkdhzfwbFJ5Q DVbWKFgaE65Rf4mkYlcSo 3qHILqBNU3GQPlqUHzW0Q hgE4cReFbSLDv GNLaI6YkvGJtULljE937U XxuWhB5MXJiifFiF9XbAP CaaNexItG3j0I1Xv4BOA3 0JD86CM60bGKz k3D3dKY6H3XxKNUgxkqdk uqruKZ9VCZuAYCilC25Vk 7hcAcdJb3eUHDfFOK4LAO ruIWoP0DhaT2d NuNbFQYdSWHrW6KbzQAlY FkvQ333ODjyLkN7IZJsxo SiA5TdNJBuwCkpTuW6m8L 9Ja3IXx36GO04 OB10zMBfy2A4nKX7P3EpH PWkxoewcclekPW0PMTiFV VtrW28Hf3jqIwpRx9iATG xVEG8LGAcbKMt V5DotW1zKpIoWHZbVPBkW 3LziDUwBOfnE555AHpaMf P3REWvctTdR6RrMLLfqVo hQcD6q6H6Xy9S BTqdtvz7D6UsDnujaEI+P T18CWUjFI58fODwzHVcg5 bveNx6NtWsOTRzWXI1yTe cPXhyf4NaCVTo Y29s (more content not included)... [facility] Coding Summary. CD:[id number] G h0bWw+PGhlYWQ+ZJ1JRMD xM95pgFZujU3AQ4cLEW1U ZUJVNJIKJA6QTR4beZS2E ZwrP2QuacEs XusnpWDjWQ66CJg8HNE8q VbmZQoxeB6yxCZqZ1u4Sx LiGG36zB20LNikCOQoBeD 3LjZpbjsgbWFy Y6qwNfCihHDyQas+PHRhY mxlIHdpZHRoPScxMDAlJy SygMcaWC0uZg8uCVBcOUM vbGxhcHNlOiBj y7puSZXdRVcnRH7eaOhtN 8SgpFG7XZRic4j9Me21eI I+DYVrCOR5fMirVVtsg71 6YdQhi0idAIA4 cZGkTIivYJD2J91qk7X6P WNfVSAeOQO5lJA0xJ5muC cayzteT7KxqCGhOzM5NXH 9wAOheQ0toSks nltbuS7nCut+A96APV7SL SDGDA6ISrq1F8ThPzqxnH I+MC22LBPjZX85nUYgyVE cy0aboYc1SxEv NRMaWYF9rXhxFCtpu8EnY ETrN87daVTqd5R5VITerK wtaVDkSpIxbFQ9uB9lXOr catcel6pepyxp Qmtrk5esaw07gQ48V66qJ ZuuCQQsDZV7GRTvYSOrbU pvxa7axX9eXq1+TZwtj2h uy2qelCp6OvPv KSQgfbShsOhpWMC8e3ThW p04Q8HuzCjsz7NjPqb5ru 60sKCeo9W4qHV8ITuqNKJ fqS7aQJeqUfM1 MROzWzWplI25qUSyWVgbH v0yjSukrLjmIN1xMSRlva anSKDwjK1jQJEhkVPakLf hEZ0jZBJufshk x437ZdRqRXU0XFIwmENbU 3GxcN2vCbIlMPYpFGCmH1 BrtHJrFFmfM307VYgvYpL 4XNBefeSwQ6Qe DOOcrJisMwL9d9A4Zv1Vl 3NvhndbFWA0YQvtKTFxKj Z1JpFoOmB9M9RuCta0PEN cbJvqKA8bL8Oz ZHSvblkcyqneqFE9MWWfQ AVdrR94uBVnCLrwTt4sz6 P6g448IJZoOWWruD90Oo4 udDogMTBwdCBU bX4ewqipt7fztcswPsVsT TYbVVe2CWq1FDYyoZsnCq GvOCM0WxX0LAM3cCGgfP7 rsBwdmypkhW1v Oyc+I41dkA8gIUV4YNK5p cqrSEYagwGxUX68PU75N6 RyPjwvdGFibGU+PGRpdiB dkNqqQH5aIrNp t9dgm3UkSZruH3NxMHQrG XzhCfe3YLCrSQS7tYY6bW 1tXFNgHBvun3G2cFR3O0A khsGskb2zh6ua DVKhKXvtQ41ovIRyw0H7T FRpqVA3YNJljQhxHxGknO 93Oyc+QTFudEwkc5CqMsv bg1dqj9qcuKx4 LwVwWVQicqOmlSpgLRK5e 3CtYk84E28jXEoxUBSjWE YhUUVrTWGjpEolys0pfP4 wIi8+PGNvbCB3 xNU3dH8xVGSmRzK9QZtsK 019QfCxfCMeJtoyk5alj0 fyoGz4VhYtRDAzapZmxBo iXZH5a4GaSr46 E91tVUhiNBVtGCGnJLFgW TDrrHzycf3heT3lQq0+PC 5fo5xfdk62eU66hLW+PHR rPAK4qLubPSzz CSKveK6sWGpkAjC4FADpM zTwpN72nENdYDlsPk9bjO dfiEprDO6xRBZxgboin38 7WdLyv1ueBECn bGYjSXdaNZU0Z27wu1E8S ATsIAHtEKH5yTW7sW2mbP lnbjogbGVmdDsgdmVydGl fUEklLRshF332 IHRvcDsnPlBhdGllbnQgT zGkPMf2W8ZeArb2QSBabA klSL3tbKTrAXxjLn1ktWm scOxuVF0sBMPg goggl148CrYab5tdISDog BFlZBoiQRB4I43ip7S8TE OfWGYkJJC1pGG3aI1xpLl nbjogbGVmdDsg rsJpvWocJOntJWbfQ323P HRvcDsnPkJpcnRoIERhdG B6TY71NN23eRTor4V2uIW 1C0QxAZXmihyr prrxjID1ZCDyNVToiZ12U o5ttOhmIy7bXWGbYKS9ZY AskWIbF7RmlK0lIeBfZCI vFYIxA2RxhEAh VXnuF544LKmxTjW8RTJdj rEzL8XuQPNcsWfuIbR9a1 P9Kw2IG1H1JZ71KU49fWJ uh8K3bVI1H9Ui FCZzuctfjucznLG0BPZhG QLcpO30Ww0deUekNp4lYS IxMFQ8IVWcnUVaW4UcbJ9 yOiAjMDAwMDAw X8YlrQPyCDeoR690ICogT tS6CPWradMdT5BfSLHqzY miNgV2y5G1Ru5BGPc6OS2 6ZQ46kEXxl6G2 bSY5E4FfTOIdbgghfnllq QP7YCAtEAFnqE79Xp5miV cfZm9zSXTzOBC9RIGpqBQ cF3PxfM4bVzQc DYPvZTXvS8LamKEnOHxpQ 532WQriGkB3DOArhnLwZ4 StFKJqnXfbDpY9g4B0Cb5 ZDGKnFZ08JDU4 eUE8BI18UE69B8PoQmoya GFibGU+PHRhYmxlIHdpZH RoPScxMDAlJyBzdHlsZT0 uHg8iUUTeVMWi nQrbtMLbClZwv7woUETfZ DeyYK4ksDzrX2YxiOH7BC Bnw0s3Ns60G24bC7RyhVX +PDXhoWR5fWW8 iH7nIqDkVyX1MBopO862P tXreJCgOoile7qqr1verC h9BjG8GGKxglBvmAvnEWN 9d4SuVx35F71j IHdpZHRoPSIxNSUiIHZhb Mgpja8mpS8nSh3+PGNvbC I0wNK9zR9xWiPrUeQ0XUa nI946WqBhvAFr Gamvm2qle8xycZn4XdZeI SBjlbBygXzlCTO4g1SeDx 95Y6EmdMwsg8DnIdh2vd3 3yYOna6L1rKS8 Z0TvEOWsxxastLUqmGxpJ Z4vWFRsqnamZYGmqD6iPC QyQ4y3DeMfSqF0MXksL5P daeZ2URLxvRVa FIxqVUP0A97cn3R3IDTqX WIhBBK4rKR8qK1loHehgq ogbGVmdDsgdmVydGljYWw gIHftI484WSHt kFcaMBVtqT7mDRGpoXEuf RmfJF8jRNJafazmOjBPIT WYPNikYMHJT0UBIKqGOKY gRzwvdGQ+PHRk LUH0mQzwLOlvLSSbbU4lR DWwO8x8AaLoSjW5CFfeJ3 LpCNGwuodjTl63qS6mLyD xCuY1IYtrY4Nm mbX3PABfyHYvZAebBSW4F 48lx6H2RRPsTJZrIDR0oI L4tZ8vxJvusprsuRRvbRb gdmVydGljYWwt SZhxV609YIUowVsjXgMdH eZ3AbU8MAB9I6TsCse1QT FggVqnXP4rlQTbPSekBh0 fhUagdUfxLL5w FIRyvkmpFVArkZ0fDXPkr OGofZzdVE9nUZOmklkyu8 13AnJmXCP2QMVryPBqU8E vyW0bZlJgTGBt WHQnX9JgbQRzVUnmM319V CaqCrR6IVFiszVdW9XkDG PscOyzXvD9n2L9Su6vXpZ ZZWFyczwvdGQ+ TRHwSRL3sYrkPCqnFLAof F7eCRReN3d4LlEbMaM4KH waV6WiDQOknzqvYq62oR7 zLbKgCjT9OAjk B5CnqwH0LVAhpMAnQKlfZ DM4L89ke6H2YKAxDYMmAK W7sIC8qH1psHejnwwdgVH mdDsgdmVydGlj DZjbTDkbY901HUCapJxvJ kZlbWFsZTwvdGQ+PHRkIH O1fOwjDHpnTFNmoM9mIEW qJ2j8SkTzOiG1 SAyjI4HkMTNbtpdkSw82i B2nMjScMeV1ANtuZ0Imtx I7XOUyrVMaMCioQMG5W83 yl2E8TJYqIZEk RXT8ePU6aB0ysTjglehuu GVmdDsgdmVydGljYWwtYW omM938YUWwzXrlJsGdFHO oQL2ycRriaEB+ IJ09iu95W2BqGupvBix4Y GYrDVP8uME5bX4aANIoVQ yuz2K8fCN2O6EezuJaqz6 an1gxQJCaJUvs I98vkSUms2S5EFFiaFJ8U OToqZiqSzPsbD05Yrf+PG OadJpxf2DrDrkzj4pmk4k xfKh9DaVdQUMc dpVnrCcoISJ3h3UnZe98N 29sIHdpZHRoPSIzMCUiIH GozDcvwx0abI6pLe7+PGN yaTI8cSO1dD3t LhYnZpG1HLlsA992XcUgh ZIkCwqvr7btn4kxiXq8Xz DmYSKqxfFrjXwdDSB4b2P oPu20W9GnoCvp p6SvLdg8ce00bVYkx4G5e ZF5T9JvQAIwsjpguRYtsP aeTN0tYXNevcyjIXIwuR9 wZEAaI3d2AvJf LlN0CXgdC5WdgmT2FUWui VYvKNUogNLXvG9ixvndb0 lxlbldCxHsFNAiBNi2ZSl 0LWFsaWduOiBs DNE5LzJ4ESH3aTUmcZ0vz TucridqqI5gEgy+UGh5c2 gdcDRvHU4rbHV9YH86KT8 5jZSre4T5vJT5 X8KgAZTifrufcmvniHQ8J CLaUBWuyJ06Uo0ziSvbMn 1qTSWaOFM5HPYhkGLzK2W eyC0gOiEgDLQw WPTkW0FcjHNaBQfyA865R MztTbD7CYCerzZkH5GpVC VqhFgpLzI5d0N6Kx3YDG3 0LV25FE30uBCt c7X9lFA0W0KzRHNcklevi moxiHW8RISrQUWkiJ53Ac 6yvEkvAh4gERAyPGT9OWE kyLIaV8XloC7t QdEmFDAcKGQlD5LmzUCaP WieV585AEaxVaM5UBUuhg BfV8WzPVRyuZrqUpD7v7K 7Bl5EXa07XG71 PG29rHNyc3A4uNJ6S4GhD ZNonidinmwoaEU1PEJzHU AafA29Iu1tzWnkIi0hTGE dQZZ0VSIdmDBb J4AfaM6kAeRwJYDnTIZjV 9FjcAVvOLfsD197RUejYz B5QKKumvMkX1PsHXUlfPe dCcY9o5C0Qj6K SBkttfj9C7OwArkugJW+P K25IAZfZF90eKSzxTZbk0 nyaSo0YsPiFZNtLDQ0pSo jOQidl5UcLZNg Y29s (more content not included)... Normal [facility] Discharge Instructionson Discharge Instructions [id number]# 1.00CD:127 Normal [facility] ED Clinical Summaryon 2022 ED Clinical Summary [place] [address] ED Clinical Summary Person Information Name: RJ ELENA Calista/[facility] Age: 32 Years : 1990 Sex: Female Language: Burmese PCP: Mark Pitts DO Marital Status: Single Phone: [phone] Visit Id: Visit Reason: Rash; Allergic reaction [...] 22:58:39 09/05/2022 22:58:39 09/05/2022 22:58:39 ADDRESS: [address] [place] [address] [address] [facility] [id number] PHYS DOC NOTES: MEDICAL INFORMATION: Prescriptions Given: Medications to Continue Taking That Have Changed [facility], [address] [place], [place] [id number], [phone] START: predniSONE (predniSONE 20 mg Tab) 3 [...] Refills: 0. PATIENT EDUCATION INFORMATION: Instructions: Nate, Iafa-mg-Kvvh Follow up: With: Address: When: KATJA MCGINNIS [address] [place] [id number] Business (1) In 3 days 09/08/2022 Comments: Follow-up for further evaluation of your urticarial rashes and reactions. With: Address: When: [address] [address] Business (1) In 3 days DIAGNOSIS: Allergic reaction; Urticaria Normal [facility] ED Note-Physicianon 09-06-19 ED Note-Physician Basic Information [...] that she has never follow-up with an sider mechanic before. Denies any chest pain. Denies any [...] and Complexity of Problems Differential Diagnosis: [] [facility] Data External documents reviewed: [] My [...] I do want her to see her sider mechanic. Discussed return precautions. Follow-up with your primary [...] Once, # 1 kit(s), Refills(s) 1, Pharmacy: [facility] (more content not included)... Normal [facility] Comment on above: Result Comment: [...] Being allergic to foods such as: ? [place] fruits. ? Milk. ? Eggs. ? Peanuts. [...] at home: Medicines ? Take or apply uzdq-fol-uukbfxw and prescription medicines only as told by [...] causes your hives. ? Take and apply szip-wnv-dfkmjay and prescription medicines only as told by [...] Reviewed: 01/09/2019 Elsevier Patient Education ? 2019 [employer]. Normal [facility] ED Patient Summaryon 023 ED Patient Summary [address] [address] Patient Discharge Instructions Person Information Name: RJ ELENA Age: 32 Years Arrival Date: 09/05/2022 21:00:52 Discharge Diagnosis: Allergic reaction; Urticaria Primary Care Physician: Mark Pitts DO Provider Information Primary Provider: Quita Clark DO [employer] Supervisor:None The exam and treatment you received in the Emergency Department were for an urgent problem and are not intended as complete care. It is important that you follow up with a doctor, nurse practitioner, or physician?s music assistant for ongoing care. If your symptoms become worse or you do not improve as expected and you are unable to reach your usual health care provider, you should return to the Emergency Department. We are available 24 hours a day. MITUL ELENAGIGICLARISSARADHA Nicky has been given the following list of patient education materials, prescriptions and follow-up instructions: Follow-up Instructions: With: Address: When: KATJA MCGINNIS [address] [place] [address] [place] [address] Business (1) In 3 days 09/08/2022 Comments: Follow-up for further evaluation of your urticarial rashes and reactions. With: Address: When: Mark Pitts [address] [place] [address] Business (1) In 3 days In the event that this physician does not participate in your insurance network, please consult with your insurance company to find a nearby participating provider. Patient Education Materials: Hives, Omxz-do-Qwhr A MESSAGE TO ALL PATIENTS REGARDING OPIOIDS PRESCRIPTION OPIOIDS: WHAT YOU NEED TO KNOW Prescription opioids can be used to help relieve yqpkrclj-cq-ddiofq pain and are often prescribed following a [...] of opioid (more content not included)... Normal [facility] Monitor Recordon 09-06-2022 Monitor Record [id number]# 1.00CD:127 [facility] Consent for Treatmenton 08-11 Consent for Treatment [id number]#1 .00CD:127 [facility] Discharge Instructionson Discharge Instructions [id number]# 1.00CD:127 Normal [facility] ED Clinical Summaryon 2022 ED Clinical Summary [place] [id number] ED Clinical Summary Person Information Name: RJ ELENA Calista/[facility] Age: 32 Years : 1990 Sex: Female Language: Burmese PCP: Mark Pitts DO Marital Status: Single Phone: [phone] Visit Id: Visit Reason: Cough; Diarrhea; Fever; [...] 09/04/2022 14:23:43 09/04/2022 14:23:43 09/04/2022 14:23:43 ADDRESS: [address] [place] [address] [address] [place] [id number] PHYS DOC NOTES: MEDICAL INFORMATION: Prescriptions Given: New Medications [facility], [address] [place], [place] [id number], [phone] brompheniramine/dextr omethorphan/PSE (Bromfed DM oral syrup) 5 [...] Infection, Adult Follow up: With: Address: When: [address] [address] Business (1) In 3 days 09/07/2022 Comments: Return to the emergency room if your symptoms get worse or any new symptoms DIAGNOSIS: 1:Upper respiratory infection Normal [facility] ED Note-Physicianon 09-04-19 ED Note-Physician Basic Information [...] and Complexity of Problems Differential Diagnosis: [] [facility] Data External documents reviewed: [] My [...] for cold symptoms, 200 mL, Refill(s) 0, [facility], 160, cm, 09/04/22 13:15:00 EST, Height/Length Dosing, 85.6, kg, 09/04/22 13:15:00 EST, Weight Dosing Influenza A&B Ag Rapid COVID Antigen ([facility]) Disposition Plan Patient Discharge Condition Stable Discharge Disposition Discharged home Discharge Prescription List Prescriptions Bromfed DM oral syrup, 5 mL, Oral, QID, PRN Follow-up With When Contact Information Mark Pitts In 3 days 09/07/[address] [place] [address] Business (1) Additional Instructions: Return to the [...] Current, 03/08/2019 (more content not included)... Normal [facility] Comment on above: Result Comment: Elec tronically Signed By: Lamin Beyer, Solo Sheldon\.br\Date and Time Signed: 09/04/22 14:20 EST ED [...] to help relieve symptoms, such as: ? Aizh-ozp-xobrayh cold medicines. ? Cough suppressants. Coughing is [...] other clear broths. General instructions ? Take wngx-ojo-ssbakkh and prescription medicines only as told by [...] and water are not available, use hand grocery bagger. ? Avoid touching your mouth, face, eyes, [...] common infecti (more content not included)... Normal [facility] ED Patient Summaryon 023 ED Patient Summary [place] [address] Patient Discharge Instructions Person Information Name: RJ ELENA Age: 32 Years Arrival Date: 09/04/2022 12:56:58 Discharge Diagnosis: 1:Upper respiratory infection Primary Care Physician: Mark Pitts DO Provider Information Primary Provider: Solo Kimble M.D. [employer] Supervisor:None The exam and treatment you received in the Emergency Department were for an urgent problem and are not intended as complete care. It is important that you follow up with a doctor, nurse practitioner, or physician?s music assistant for ongoing care. If your symptoms [...] Instructions: With: Address: When: Mark Pitts [address] [place], [place] [id number] [email or web address] Text[employer] Time (1) In 3 days 09/07/2022 Comments: Return [...] opioids can be used to help relieve akjcbvcw-br-dozrsi pain and are often prescribed following a [...] care p (more content not included)... Normal [facility] Influenza A&B Agon 3 Influenzae A Ag Negative Normal Negative [facility] Comment on above: Performed By: #### 2 [id number], [id number] #### [facility] [address] [place] [address] Influenzae B Ag Negative Normal Negative [facility] Comment on above: Result Comment: Test sensitivity and specificity vary for age group, specimen type, antigen types, and prevalence of disease. Test results must be evaluated in conjunction with other clinical data available to the physician. Individuals who received nasally administered Influenza A vaccine may have positive test results up to 3 days after vaccination. Performed By: #### 2 [id number], [id number] #### [facility] [address] [place] [address] Prescriptions/Work Noteson 0 09-04-2022 Prescriptions/Work Notes [id number] 1.00CD:127 Normal [facility] Rapid COVID Antigen ([facility])on 09-04-2022 Rapid COV Int NEG Ctl Pass Normal [facility] Comment on above: Performed By: #### 2 [id number], [id number] ####[facility] [address] [place] [address] Rapid COV Int POS Ctl Pass Normal [facility] Comment on above: Performed By: #### 2 [id number], [id number] ####[facility] [address] [place] [address] SARS-CoV+SARS-CoV-2 (COVID-19) Ag IA.rapid Ql (Resp) Not detected Normal Not Detected [facility] Comment on above: Result Comment: The [employer] System for Rapid Detection of SARS-CoV-2 is [...] or revoked sooner. Performed By: #### 2 [id number], [id number] ####[place] [address] ADMITTED TO INTENSIVE CARE UNIT FOR CONDITION OF INTEREST:FIND:PT: NO Normal [facility] Comment on above: Performed By: #### 2 [id number], [id number] ####[place] [address] EMPLOYED IN A HEALTHCARE SETTING:FIND:PT: NO Normal [facility] Comment on above: Performed By: #### 2 [id number], [id number] ####[place] [address] FIRST TEST FOR CONDITION OF INTEREST:FIND:PT: Unknown Normal [facility] Comment on above: Performed By: #### 2 [id number], [id number] ####[place] [address] HAS SYMPTOMS RELATED TO CONDITION OF INTEREST:FIND:PT: YES Normal [facility] Comment on above: Performed By: #### 2 [id number], [id number] ####[place] [address] HOSPITALIZED FOR CONDITION OF INTEREST:FIND:PT: NO Normal [facility] Comment on above: Performed By: #### 2 [id number], [id number] ####[place] [address] STATUS:FIND:PT: Unknown Normal [facility] Comment on above: Performed By: #### 2 [id number], [id number] ####[address] [place] [address] RESIDES IN A CONGREGATE CARE SETTING:FIND:PT: NO Normal [facility] Comment on above: Performed By: #### 2 [id number], [id number] ####[facility] [address] [place] [address] Coding Summary.on 07-28-2022 Coding Summary. CD:[id number]:[id number] G h0bWw+PGhlYWQ+IX4FHWM lB63owVPpmK1UB9cOQA2T MTGZTMVQVL8RLQ5ysSC5R ZvqA2LslfRq PaqpyPKvYG52TVz5XEP6k FoaVVlejL5bcLOrB0b2Jr JmSF27eV53VQhvEQOoIgZ 3LjZpbjsgbWFy D9urWoJmzTPbFfd+PHRhY mxlIHdpZHRoPScxMDAlJy RjtIljVO4iEm4wXURgCJB vbGxhcHNlOiBj m1eiIIUyLMpsEZ2upUmzA 0IxmYV2GWKhb4g3Cq68vH I+HHCaHNE3vUdkSIttj76 9DlPok1hoXQG0 pITeVDmgXKE6Q90fi8G7M HFcGNMeGGI9dPZ4sY8xaQ uhcbesQ7GptPEwTiI1LYG 1wVDslM8xqImz oyxiiS8fThd+Z75GHE6LT LDELI2ORhb0X9GaXucoaZ I+ND42MYZjYA75pAHkqFA fk6lcrIj3UzPu SAVnLFU6sTvoHJcdb8NgA GObQ41wtXBwy5U2DTKulC zwbASpIhFepAY9fH8qFCh idofqu4tvamub Tefqq4cwvj19bV71G91bY AfcRLOgKXO4RDAcUTGmiL rbqd1ktV0tEy4+KCyon4w tq3sydCu8IiMq LGOozeOlsNbdHUO5j3OtW v24F0YphZrxg0MoTuc0fe 96lDOnu4J2bJT7IGjlNPA nmV3aAEwaFlQ4 YCGwNfUlqF14jFRdDFanV j4fuVmkjJtnHQ1oDWXwey zeEUUpgO8jLLWmaWDotVh qRZ8uSKFjaykk f718ZnSnIXQ8YKVhgWBtT 1HytD3eIpHsIUFoTHHxG8 EpsIFyOHkcA904CClxKmU 7TCBvcaDwM1Ci TKTrkQpuBhS0q8F2Rd2Dm 0LifzdnVUE8ULwiEHVtJh I2YcGjXnA9I6EbHod9YSW ewYodJT8hO9Lz TXEfgsijsdlyiLT6BIRrV DDlzC46uBFpMZjjAc5jx9 T8j457EXTvNIEskM17Sp2 udDogMTBwdCBU dI0vrgfrb5swygrpTuUwY BCyNTp9NZi9EUFogEfrAe FnATJ2QkD7PTZ0cVHsfM3 bnFrglzhacJ4f Oyc+W17fyA1fENN0MUI0i owgIZSfjvCnYT50PF46Y6 RyPjwvdGFibGU+PGRpdiB dtMlfXU6bMaUu h0kow8MtIBnfA6ExGFMuN YrcVlk7ESDzDPD1vBC6jP 9aYMTrYFqut1F9eAR5G6W vudFgks7kl0hx VFNqMEdrA89amXSyc0A2E RGmvSD7WQScjGroErPmfR 93Oyc+VHErkVikq0CtFot el7kga3dygRe1 KvNjVXBgmzBflVekXFW6z 6QeEb64I13jRNggTDEgLT IdYPTjYWMorRbjtm3ykB7 wIi8+PGNvbCB3 wUR5kY3rWNEyWmF1CNfsY 285RyTwxXNoOtknz3iri9 uozOc3KzDeBGWukrKhxAy rWAM8k1JfYr72 H64qNZywTZPzPOZlYKWsS KTjtQhnvq0cwQ0nOp0+PC 9zg9pgry14tG56wYW+PHR bFID3mVwrHHlb FCOxwX2yZSycLoL9ZGFeS jEgmV72bPJzOMuvHq2zdB eooNzdHX5kLRQodycnh24 0UtIkp1wzZEWk yWOqSAloORO3F74at1I7N NSmHHBtEEI2sVE1nR9anT lnbjogbGVmdDsgdmVydGl tVBajNUxcW911 IHRvcDsnPlBhdGllbnQgT jDsUQc7W1HtYzz0EUZcnN wnDR7dqTBfYUdxKr0rfCm vdDihSI8wUFGd qntzo118ZtLuq9ddSVAkj YAoHZduQUG4A12hb7W4DM LoZTYpUUF1wFJ4qO4mbMu nbjogbGVmdDsg gtCdnIxcHAprYOkhO090U HRvcDsnPkJpcnRoIERhdG M3HK19IB29dBFsa6U3yYK 3E8RqOSRduzci cwktiGZ1YLXkXCEugE41T i6dpXoxXa2xMTHvQUW5CI PoxDMoA0CgsJ8bDnUuNXG mIWMaN5AvcWBz BAdgQ405QQmwSkP5QLArz aInQ5FfDOYlkMjrKcH7a5 Z1Qo9TI6U3QP90SI16cSB uh6I6mKD8F6Te LTAanvpyvciqpMH1JPMgQ CKeyJ20Yu8caSroNx1tEP EfYHY9DIAwlMJqD5AxqK3 yOiAjMDAwMDAw J7PnyTGrFJeyZ682ULtzF cM6ODLtbsRpL1AcJIRqsD iuZeF0j0S9Zb6IEHt0JZ3 7WL50vCUay4A6 gSE1X0AgLLQrinuocboud QM2REWhLZSaaC87Aa5imJ nnYq3aBILhVAA6DTSnoRR zA4WngQ8dWsUr IJMbCITwS4YylKXlHItxB 380EVyyXqN6QPFlmhIfQ2 WtABSwuMlsYwQ4d3Z5Vr7 QHMRhII30EMB6 hGY9RQ62DP81R6SuRpcgd GFibGU+PHRhYmxlIHdpZH RoPScxMDAlJyBzdHlsZT0 mTh3eCZSnRZYp oDqkhYHbPwAqk0qyYPJcI VuuOB4bfBnjT1ZsdRA0DA Krp4j3Pt84D77xN0FejFK +NNOxpGS2eHU9 bA3hAvRiWzY0MNsfU434Q mQjmGKiKttpa5ima7xmuO b2MaI2YGLpmrKqeWcuDDS 1r9IvSx36T74w IHdpZHRoPSIxNSUiIHZhb Tlvco2maQ7mWq8+PGNvbC W8xBX8oY3cXdMiOgH9XXd tH793BnEabOWc Rbcdk5tqh8kntCu4IrBpJ OFchwWjxEnbZWK5w6RuOz 46L6TtcEqrz3AzPsa4qg5 1wCPeo8Z8nBZ7 T4UtFLAybbdpyCZydGuzM T9bECNvxygmPBJfjK3nPI PlD1h4LcIrThL5KWpwZ7G hwhB1VTPgfVLg XAcvEYM9S50vu6C1RJTwH WKaHSS1bKT8nC2tqMmrna ogbGVmdDsgdmVydGljYWw pTRxhO786DXAg mJewDUMtqJ1lHARafWIvb FprPT9kQWQjcksvYtUMUY VRJUslGAEDC4AZMAzQLUY gRzwvdGQ+PHRk DVQ9iYviSKxoCDVjpQ7lC AUeB8w3PgIvPcW8VLweB6 NiENCqritpZs76dA1qYbC nQfE8AGsfO3Qm ecP6QIRsgRRfPPpuHMQ5F 23da0G5STMwCQLlLCB4qQ Z3eK0fzMrmitetxQEmwBo gdmVydGljYWwt MLbwB104SUUidNnqInKxM fM9VeG2EOR6L1FzOnv1MV XxmLtnTX9kxFNiXEztCi5 lmPwklCowNZ4v EYCvznpqFPSblR3pLYBkj NDyxRsmYK5kZTCwzpzct7 00QiFaPCF0HHIieVGuA3G ogB1pOtUxCHGh OVXpQ2LoeRYnNJakR706S UiwUgS4UROmcnQxL6FySW GsaTxoNfF8c9V3On7cCpJ ZZWFyczwvdGQ+ IINpLQP1uSscKDamPEKvw I2vVAKbA2f2HnOvYlT2IA lkR8TnYBBawhceWk78vJ5 yDgHaIuH7UUtq Z4GvahY6WGClsAJyKNdoB CD2U34zm0O1EHKvOVNnPI C1nSG7lS8oxHxacqlfdRE mdDsgdmVydGlj HFqyVGgfL982VJXfgWpxF kZlbWFsZTwvdGQ+PHRkIH C1nQvaJWpzCVUwpJ3uHTH xV5u5ZcHdYjY5 FAguH4JtDVTlxgljMy07k Y3wUkPkFyV5FHnoB3Firw S9WUKejNUtXYntZQI6S78 ss5R5VOWhULYf JHG6vLE1nE5zrDpzgwior GVmdDsgdmVydGljYWwtYW zkV339UEWijBztCvLaDHJ gGH4djHctpSN+ HQ51yr94P7LoRqdgXet8N TVxSUK4vIS8zF5oRPKaMY jbk2N8zWH2V2ZohbFdzl1 li3vsMOBtRMpn P60ahJEkc3V6BOFqiMV1G ATumTsjOkUcgA10Kpw+PG LzcLyci7FfJkdsw4onu9w ntNc7JsWqQAXj cfSmbUunSHT3o3ZjBe94T 29sIHdpZHRoPSIzMCUiIH WujHuhit3coO5qHw7+PGN maNV8hWV5yO7p EpIlZzU9UNsfQ131VjAxi YYlIutzm0xqx4qazWy3Kv WdIPUhxvVfyXbeUOZ0q0X fMe51J4ZjySdu m7HpTgx2tu75iJXhf6W5h US6T5MdHDIyzvqmiZUgcY lkSP5hKOXedpgmESZslX1 zRDSiW0g0QkOk CxR5TRufS6SqjzP6WVVhn DOzSIRcfMRMaX7uewqrs4 ezduzoAbRlTADgBQf3RXp 0LWFsaWduOiBs JNB4DrW1GVL9bBEhkF8wu PogiaucaT1fLsd+UGh5c2 lngSUhAQ4flJE0PZ26WS5 6jGRmn2M4pTT9 P8DnNHNyxefwoynhbYS3J XOmCNThhZ01Du8irCnvFl 9sSNLrMGD9NSEtkZJaD9I ojO9rToGyJMXs RTQkQ5PgjNEdHCcyJ327T OhySqL0AESqvfMmY2TpOW PrtSzyBxX0z1U1Ch4EAP3 8ZG81EW59yHVw m1R6sZW8P4BrPYBmwkpzh qotzLF1KMMuSILgmR15Um 9hvPrsJc4aURSrMJT1ELT dtYVkQ2EooR3v TpAlEHOzLDZqG7TwzTOsT UqkB267ZIgbNhG1LYAjwf PzK1ShSHLxzLtfScU4j5B 8Kk9LSk03VV09 TY34zVMly3N4cGO8F9NpR SSnhrgwrfoutFJ6WIVuPC AexR36Wc2moXtdKe8xGEB cXAZ7SDHqhIQf T5KbyW0gTgZxSHTnNRGxY 1PwfPLkGScnA457SAwzJa T9OVRpprEfQ8OqNSFljIh uXvE9q8Z3Ht7T UNvjkiq8L6QoGtdeaTD+P Q81ZCGhUQ41yIHerLRku5 brpKu4SdSnZSEgDSL5vQf eGMjhh0WjZJDw Y29s (more content not included)... Normal [facility] ED Note-Physicianon 07-28-19 ED Note-Physician Basic Information [...] My Ultrasound interpretation: [] Decision rules/scores evaluated: [place] ankle rule, cannot rule out based on [...] Pitts In 3 days 07/30/2022 EST [address] [place] [address]- Business (1) Additional Instructions: Patient Education Elastic Bandage and RICE Therapy Ankle Sprain Attestation Patient seen and evaluated by the physician music assistant. Attending physician was present in the emergency department and supervised care. This visit was performed by both the physician and an APC. I performed all aspects of the MDM as documented. This report was transcribed using voice recognition software. Every effort was made to ensure accuracy, however, inadvertently computerized planer stone mistakes may be present. Appropriate healthcare PPE [...] 1 tab(s (more content not included)... Normal [facility] Comment on above: Result Comment: Elec tronically Signed By: Juan Ott PA-C\.br\Date and Time Signed: 07/27/22 12:06 EST\.br\Electronically Co-Signed By: Saúl Gaspar MD\.br\Date and Time Co-Signed: 07/28/22 07:23 EST Consent for Treatmenton 07-10 Consent for Treatment [id number] .00CD:127 [facility] Discharge Instructionson Discharge Instructions [id number] .00CD:127 [facility] ED Clinical Summaryon 2022 ED Clinical Summary [address] [address] ED Clinical Summary Person Information Name: RJ ELENA [facility] Age: 32 Years : 1990 Sex: Female Language: Burmese PCP: Mark Pitts DO Marital Status: Single Phone: [phone] Visit Id: Visit Reason: Ankle pain-swelling; RIGHT [...] 07/27/2022 11:34:49 ADDRESS: [address] [facility] [id number] PHYS DOC NOTES: MEDICAL INFORMATION: Prescriptions Given: [...] Ankle Sprain Follow up: With: Address: When: [place] [phone] Business (1) In 3 days 07/30/2022 DIAGNOSIS: Ankle sprain Normal [facility] ED Patient Education Noteon 07-27-2022 ED Patient [...] your activities and whether you should start smxbs-vj-xmgtrr exercises for your injury. Ice Ice your [...] 12/16/2002 Document Revised: 03/16/2018 Document Reviewed: 03/16/2018 [employer] Patient Education ? 2020 [employer]. Ankle Sprain An ankle sprain is a [...] the cau (more content not included)... Normal [facility] ED Patient Summaryon 023 ED Patient Summary [address] [address] Patient Discharge Instructions Person Information Name: JR ELENA Age: 32 Years Arrival Date: 07/27/2022 10:09:44 Discharge Diagnosis: Ankle sprain Primary Care Physician: Mark Pitts DO Provider Information Primary Provider: [employer] Supervisor:Juan Ott PA-C The exam and treatment you received in the Emergency Department were for an urgent problem and are not intended as complete care. It is important that you follow up with a doctor, nurse practitioner, or physician?s music assistant for ongoing care. If your symptoms [...] Instructions: With: Address: When: Mark Pitts [address] [place], [place] [phone] Business (1) In 3 days 07/30/2022 In the event that this physician does not participate in your insurance network, please consult with your insurance company to find a nearby participating provider. Patient Education Materials: Elastic Bandage and RICE Therapy; Ankle Sprain A MESSAGE TO ALL PATIENTS REGARDING OPIOIDS PRESCRIPTION OPIOIDS: WHAT YOU NEED TO KNOW Prescription opioids can be used to help relieve baooqxsy-zz-gjklwt pain and are often prescribed following a [...] be struggling with addiction, tell your health transitional care nurse and ask for guidance or call [facility] National Helpline at 9-195-894-HELP. v Source: (more content not included)... [facility] Prescriptions/Work Noteson 0 07-27-2022 Prescriptions/Work Notes [id number] .00CD:127 [facility] XR Ankle 3+ Views Righton [...] V. Transcribed by: ESTEVAN Technologist: CHARLOTTE [facility] Coding Summary.on 04-18-2022 Coding Summary. CD:[id number]:[id number] G h0bWw+PGhlYWQ+AR0IHQA kO04qySHegK1JJ3dLFS7J HNWIMARRRU8WSQ7twZP9C RijN1QoenDx CxxjaGAqUJ03XOl6ADX8r ItaIEypcD8zcEHxD6h9Oj YlHF14mX85KItuILVnQmA 3LjZpbjsgbWFy X2zvZuUvzVAiLql+PHRhY mxlIHdpZHRoPScxMDAlJy UsdGxbGV8yQj6sNTDfVAN vbGxhcHNlOiBj k1ytJQXrVAxjUI5etTpsK 5KopPU4TLVay3t6Oo49bA I+PKVmMHJ3nLcgMKchu64 3OjKny6jdFUH8 mUNcWYowJMP0S96sf0L2V ULqAPMwDYG4qYJ0qT4jcE jhmgkoQ6NcyUWrTuA4SDX 9zYOphU9buHue omfuwT0cHsj+G74FVJ5HU HVYQB0MSti2G4VyXmdgvZ I+HB36FYQmWG19tTSyiAU vx2naxJq6WzNn DWVsMRV8vZnuDRszi2WgC ZYwB52syOJvs1F0HWAvzM rvyEBrJwZitBW5pB5sLYk jnntox2yptxfb Sdrlm9muxt33rS99U69nC TxcZTViJVF4OQEiQKBglK jptt1nxJ1rJl8+NNjex7c sx8bvvSi5NaJs UJKktxJpqKsbOPS8d2CoI t02S9QtfPwkw4AdUkf2dd 95fIFtt9J6iDT0BVagYZY yyF9iTJubJvH2 JKFvLmLjvS43dBUbINwjP y2cdAscpZicNE5mBRUjjj ppYVGofE4cZNCupZCsqJy wDS5wVNIswhof x554FuDiNEO4GWQxbMFwU 8XjuA9ySdHyCULjLMPoN4 EeqNWtRJcbE293FDyoMqL 1WHIvnuUdP8Od CAHwlYzeSjH6a4Q8Qu2Kj 0YbkersDHY1NYxgSJJiSo NzToSyVgY6S9XaZss6NCO fvNhsID6pY2Hf FGFxkemryudljXB7KZSoB DXawE07cHUlHRtiRg8rc3 M3s386QFKaHDLgjI46Tj1 udDogMTBwdCBU gE0fzhegl7iauobnIvVpP NAdBRa8MCr7YQEfkMabSb ZnJQO6GxB4ITW3jKEbxR4 nfChpdwpbeQ7u Oyc+B19vnL5mJXX7TQF7h jetNQQejzRnVJ23BY03D5 RyPjwvdGFibGU+PGRpdiB ezMsvGT8pAmXa k0grm0TyGGlaH3UbHETgO AkwIya5PJHeZTQ4pUP0aA 7kJNMtOMqjx3K3pLB8H4J bmaLgay4ln5vl EFCqRBieM20mcVRoe7V7H VPysET4RJDpuPpuHlAxfN 93Oyc+VKQgmHvtd6KzKum eo8wwi2tqgVw5 FqNwUWXqitFouYrdZJZ5y 7SpVh04W22xHAndEBWwGK RiNEVoZOEcjCtmln5wrD0 wIi8+PGNvbCB3 cHG2jV7mVKRhOcA5BHvlL 368IeWunYPzMbrzn4isp4 aybTz8QgHpCDElmzPvoSu vLML9t5VcIx93 K32kSShcMMApOYRfRAOqK NWgnLnnvk0jyR6mJk3+PC 6ci9gaxv54bW14pLQ+PHR ySQD6bZljUOdy QUCwzJ6uTVapEgL9IILlR nYytC52yOYtKRxgRh1sdR wjkPepJF5mMFSmflstu09 7DqEyh3bxAEJz nABhFFnwBKD0K19pz5J1V PWtIVAhZEL6rUL9bL3sgM lnbjogbGVmdDsgdmVydGl mAGvwAKvzY825 IHRvcDsnPlBhdGllbnQgT xEoSCb2Y3JmAyu6KVDptU djML6keUYrIAocOq7niQj knTzlGF8oXXGy puqya554PdAjy9pgIYCmo UWtWYktWML9X01ls9W5JK JyLAMfRUM2bYZ0fR8fwVw nbjogbGVmdDsg onSxtMrgELzkOJzzV123Z HRvcDsnPkJpcnRoIERhdG X0BL95XW86wUZxh1S1aOU 9X5GsLDAndruc lvbsrDT6CWJkUZAtaW63V e4elGgxVu7dVEXwSJJ7MJ KdhIBxP0XmxN4lUfTvZOD lTEAvV0BfnMQc CBczO476CJhkZwJ6FDDdn uQqD1SvRVTafBogZdC4m5 E3Tv8UR3W0HJ37EU45cSI qn4Z0gFF4F7Og KSUyzxvocntbxDM5JBXkU GMmkO90Np3riEhgHp9lKB NeZKM5CIShuCVeL5MrwV8 yOiAjMDAwMDAw B3UdgRSpPLigG827VIemS cJ7VUVhgySeZ8UjGWKutZ nuTrE8z2R4Vq5XWNk8BG8 1QP68qSKyi5J8 qKK8I5XvUGTgqcukfuvhu VQ3UTBrKORddK16Jx0vcL bjVi0kARFlQDI5NQGfrSM nM2WjnP3cAjWt KPBaNOLoN4SjwMFrAZxaK 865ZKddIjM3IRYdncBbS8 GsVGHmeGkaJeX1p6B7Ei0 HWEOxUS81KYM4 rYR5IQ36WY36P5ZnOvebq GFibGU+PHRhYmxlIHdpZH RoPScxMDAlJyBzdHlsZT0 sTv7yVTHlLQMx xRlfdXOdNjWfp0xjZXYhO CacKA4syHbvH0LitHM5DV Utd1c6Ir59E94hP0XjjKZ +UTEelEL7mXG4 tF9rTdZsUrO7WZdvI652Y nOluRYtSluuo3ocl5deyF w9TuR8YSYtodZktEttVHA 6y4UdMf99K80y IHdpZHRoPSIxNSUiIHZhb Wjkbl6ruT7rEp9+PGNvbC G4aZO4zI5lAqZuFfE6GTq xL481EtVimXVz Pblfy0rvy3otoAx3ZqEvW LIdfbFaoZzjNQV9t5WoLc 06J7GnfUbih3LaUja2ox8 6mFBxq9F5fVW4 W4WqDEHdyvtxjQCmbYrsX Q7gAHUwoojnKABqmN4bHJ SoX3x5LbGeBoT5OTanO1Y rokE5PRWnbGGm BHyfPFC9D23jm6P0BXWxU GAqPLW2hZJ1sR4ckRmrrc ogbGVmdDsgdmVydGljYWw kGObkW807FVOz dAqtZZJsyM8lTLZkyMDjv VzwLG6lQVPzzyqmIvYFXS XLAKmhLRZRN4PFOLfGAOU gRzwvdGQ+PHRk TWM0yEbkFHwdUGOryA8dS PYdI6e6FhUoMsU1DYdbM3 FwXCMqlhsrQy23iR8vCwC aAfB4EIpkP0Hk rbS4VNNwvEQkIEeoZJS1L 74pu9S2WQJqXZCdRDS6vE E4xY5vlBgjonpahQLkbQs gdmVydGljYWwt KThbW805UEDijZojDwNqQ oY9CxC1FVQ5H8RqCbl9XC PakToqRE9tmISsETjnEq0 prRdckEsmEK3b RGDghaneQPDzhW7jIBZep ELfgDtoOE8kKQPlcrvpn1 35IpSjARE6FVNijSMaV5Q veJ6kZgBzGRMt TTMdP1UgvGJkUVitT009X NlgLfE7KINfbnIhQ7LuJS SbtUbhUpC5z2A8Lg7iUnI ZZWFyczwvdGQ+ BMYfOWP5lPhrPHddDNIum E9oUBUbE8p6SzXgRrJ2BY mvO2GjBEEwellrJg71hO0 rFoSpCrP5OFnp A5UaiuI5OXEdcJAqCHawS JZ2S60ad6O5OSVxMRRjFN M1yGW8yB5rwCdevnrzxNY mdDsgdmVydGlj REjqGEujC286QDQdkLboE kZlbWFsZTwvdGQ+PHRkIH O1oZdlKZgfTGUjcG2sSTQ lA4t7FzFkQyJ2 SXlsS3RhVGKpshxuVw64g R5bUvCkXbE2OIbaB8Givk B6MYNzxTGoINifDET5Z88 my1Y4VVAcFSRo TJX1qWO1cX8yzRetejsbq GVmdDsgdmVydGljYWwtYW zuL223EPSetVrfEbGpJOQ uIE0qvRqmgTL+ OW61sp12I8GrFvryYro4M YRuCVK8yMM1qD5oDJDkPP zcl5H5lNB3Y0IydwHouu4 nz2qcNGCnNRog S16xeULng0M8VACnrHM2Q DXmfKglDyAloA66Fhe+PG ExfSmxl8XrGrwqr5eog4z jxCh6UgVbHYSi qcGwzTggGLV9p6YbMf32M 29sIHdpZHRoPSIzMCUiIH HskLrnqm0nrK2kEq4+PGN upHO1rPZ8gX5q XdKdJfM9ZPqzZ824UtMbq MXxMxhsf8tly8ikuHm8Wv PgFHXajlVqeRrhSBV6p7H dYa03O4YroDgm p7EqPdq9wz16dBVmu4Q4l NF9T5AcDQMzgejrtVAntD buXI8iFSYwahwzLDNrtL5 oNOPoO8q4FtTz WhA2EOuqI7LmhiO6VEQcp EBlFFFufUAAtU1cpipvi7 daibdwQtFqYDVpBZw4TWx 0LWFsaWduOiBs QFG6HmE1AQO8qZHviU8or OfhdlghtW0iNqh+UGh5c2 ernJVfOJ3ugED0OR80NU2 5yDNmb2B2eKS9 H2WaUOGfbveguuehpLZ3M ANjQDFipZ55Ei7bbDpwCf 7uMDQfXAO0ESXxwGAcB9O nrG6oAtDcCZYw UGTaI8HmhEWzSGncN232P AhrQmD3OAJvyiJmV5DvBC KppRanHrW9w4I0Zt5MRP0 0QZ54KS19lJUm h1F1vVQ7R8DmHRVyqdlkc zyvjBJ7GQZtDVMjkT84Rr 4iqJbmFx4wUFFyOUM2GYN fjKMgW0WugC6e RxHvSSTuSPOoS6HniQTzX CflO207NJpeDyJ3ITJyja VzJ0VyTKHkwYpiLmL2j8L 9Mz3NOr00BU18 GI58vZVof6H7gIT2I5HcW IFkuznvlzafcMB0ENHhFI EebJ15Lc6myFnhDj0yQXB oCWY7JSOnjGXs I1YimT5zQfQuZSByUHVyL 9PvmCAsTCkvW037DNaqDn O6LAKjpmLdK5WaARItzZn eWaZ1z1F6Kk5Q KOikbum8U9SsKpwxuWL+P M57KGGtJJ45jXQilMLgj5 bkcTb9EoQnGZUyYOD6yGc xRLiiw2WcSWUs Y29s (more content not included)... [facility] Coding Summary. CD:[id number] G h0bWw+PGhlYWQ+PM2TANT lK67nxYBsdP2CZ7dNOO1C EIMLVRXTQQ7DEA6ffJU9D WgrU1QhcfKn FovirCUbVC31KHt2HBB9x GzyMXdhqS0zxRBrD3a3Vl AcAG04eC96IPlxDGMfGtB 3LjZpbjsgbWFy A3ixRxYjsKXrCws+PHRhY mxlIHdpZHRoPScxMDAlJy FddVeqBA1dKm9bPSXgWDO vbGxhcHNlOiBj f2qnEXXoJXioQR6yfJioX 8JqdDJ1UGSul7q2Zb15fC I+CCIuKED1vNzdABunu51 4FkIaz7smDVV2 oEPmZZfoOUJ1D05hc5L1T RLtZMDfIFS8oLW9sQ8wiX kwcxveR9PxgGRgGuW7NQH 1hJPnvB5myFtc vwdepN1qYqp+E18JRQ6JV IKFLN1RQkf2P6SdFhiaeM I+WD32OJFjYL81vKXhhUZ sb2gobJy1EnPa BFKoSVL9pBugDIjps5BzD CQlD59zjZGiu0E5HRTpbR vppEKrLfRosYH6dQ0hKOt avdqfe2yrllcn Fvjpt8qaae17eE23P75sO DdwXTPqHNN0ECNoDCXxgB qkdo3pxN1vDy0+OPgpm6s zg0xgbFv3RsAa TJGobpZofOedWXD6h1GuA x43F9FsqIkig0YeMyb1dr 90bXYal6T0aZX9PRmjEWK weZ7tMVdnHnA3 ERKmYvGkdN18tDEuZFamV l5nmErggMcrDZ9uDRIkqu frAUCqxQ8jIELrzBGqnZr iLT3rQIOawrlk g053KrLpBJW0EAOokGXqN 4LxeD5xXdZiROCxUZHbO6 CjkFAoCVsdD647WMalKlF 2WWQqnvDkW6Nk JJSieIndLlK4z9H8Nh3Pu 4PqldpjOKS5MLqxHZYbVy FuYqFzYpB0F1GfGjh7SXV qhBxeLX0aU4Ts ADAlpmclguujdMB1VWRbZ LSidH50eTScBOcdZh0zu6 F9h919LWSdOPImyS64Si1 udDogMTBwdCBU qQ6khsrqp2yzdkesWfCgP HHnAMi4HDf9KDFthSwwBw UlXHJ4DiO5BHZ8wOMuxI5 mjRtiieeffS4z Oyc+S69wtI8sHCM0DPE4e mzlSULiqiRlTQ50SJ11G7 RyPjwvdGFibGU+PGRpdiB uiThqGA7nUcGl i2nvp7JdAWgjJ2PmSYGyA JykNuy1OMQiLEF1uJV8gD 0tGZBfMFxeh7T3dLG2Y2P xnpPlip6to5xf ISDjVKvqB83qpZNfi5O4S QAvkHO9NMHkkMidTxUyqF 93Oyc+DVVpcMctr1KbUpi ex8prf8djbDi6 SfCuYBOsfwYdrUfwRGH7z 6OaGq78C09hIMlgZPIjUR UaSWJuAPKynAtbiq8fmD8 wIi8+PGNvbCB3 nSH7fS3bKOIsKaZ6GMjlQ 329OzXcsEKxCczjj0oov9 taiEs7MhWzMKGbpqJptLf cPLJ8z5QbKs42 W71zIYjtWXYrZEDxCBRdG EZtrSgcqa0ihT8bEu1+PC 4eu2gxye69qA22fPZ+PHR kVAZ2kMnmEMbq NUJxfQ7rNHcjBtG7XJKtT pAugR59zYCeALrvLw3dvQ nivBmkGZ1cXTIytqppm35 0YjPab3ihCERd uMDfJNqdQTH5Y50vo9T5R NYgSZPvXKI9eCO1qF1pgG lnbjogbGVmdDsgdmVydGl jSTkiCUdpH710 IHRvcDsnPlBhdGllbnQgT uCjZXp7A9KmXuk6QFFuoU qbAO1viJRuAWeuQj8muPy voAgcNK8lQDDq iudyy722JnPmo3gvMDGiy NUvZEapMOW5W52sb7Y7EC FdDRKbANK3rLX2hE4jqLz nbjogbGVmdDsg clZhoNihBQkiZKgkC090G HRvcDsnPkJpcnRoIERhdG B8PC17VM12fGObo1K1wSH 1M8GnESPczfpo yxezhXV1QIQlQRYdlP76A l0uyQnxJl1xJYKbMTW6FW HjyHCoK0ByjZ9bJvAfCMZ tNQOwX7BciDAd YPbeQ836DSzbAwB8AFXoa uPfJ1BeGAGjyOkbYcV7m8 J7Tl2SB2H0XG46IB23eFA qw7U5sAD8G5Ug MDJmribiirtmfLH7LLEdH EEgiK16Mr1llBrpTm5sOZ CmOND0LMSutENzN5UswJ4 yOiAjMDAwMDAw R5KzfHGzBWbrG924VPbnJ zV3YBHmqdLeQ0UmFFDgzF woBbK0s7K2Dm4BYPt0IW6 3HM84kIZpv5R0 nRT5Q0LzRQErcgppchslp LD9IBYtGXCmjR91Zx7hrV vvTc4jXUKqDIL4KRGhqPE fQ9OwoV8nVvAb DHBiYGOfB3LcdTUpCVnoI 150PAdiVvX7JBXlzxLyZ5 PfCOOkvCtxUyQ1r0Q9Kl5 ROGHqJC95VJN3 zNS8JS24VY14N7SmGohkv GFibGU+PHRhYmxlIHdpZH RoPScxMDAlJyBzdHlsZT0 aVt6kKDVpYRSz tNenzKElBwFwh4hoVPMmP KgiRK2jeTrnJ0InoMM7TH Afw4e1Vc79O68fE7OfvMH +TUPksNV8gYL0 lF2bLrNqVxC6CQejB461Y zTwkAAzGtziu4osj5upeK r0UwD7GGEpufTmdZbmZSY 6k4JaYl62A33o IHdpZHRoPSIxNSUiIHZhb Fvckz4quQ9vQz6+PGNvbC S0yLX0lA7xJaPpGzY6MCn wS220GcInpEVk Bwbcu9wnr3wzwLb0SuKvS BUnmbUcqYqgUAA4e3DgAr 03Y0XmgPipx6JkEns0kz7 1xYTav5L1oER4 E8OvCSKquhfukPExpLmeH K9fVHItfzkcMNIvhT2yJC OrP4t4PeQxUwF8NRtoR7S cryQ0EYWyuBYa BOfuUHB8M97uj9G8QYHvE YKiMSH5gJU4dA5veGmxhy ogbGVmdDsgdmVydGljYWw eQUprU108TNEt oNdwEXYnxE6cIZPpaIOto AtcOK4aEEUruoeoAiVYPI AIDUouZGPNX6NNPFfNJFG gRzwvdGQ+PHRk KFY9uAqkOCkrJHRllA9eG YOtY6c3WmRiHuR8SUxcI7 SiAHIkgstgZp66xM7nYfW fGaK2OOgaU0Pa ooP1EYZiyZDvNVcqHRL3N 16yn5C0CPRiFGTbGHS9sG U4tZ2xwVpxwbgbeOOsbVd gdmVydGljYWwt TLeeE513CZIunZwcWhHnO sZ9ReY7WUD4Y1AcXnd4YZ DwqMutUB9kvLRuKZnpSz0 vbSrpmPgtZU3u SLYbztgrIMUdhP0sCGDez HHnoBzkMK9yGKRxcimbo8 36MwYnAQF3BRJpeDIsE0W udR7zTcYgQIMe SNJgC0HjxQLwRKwnO891M LzpIvJ2ZSLcrgFqR9HvJP AssRasDqB4j0S5Tu0bNoS ZZWFyczwvdGQ+ ZQGdKLW1fLiwQAxzIQWsr L3xJTDfL2l8EkBfCcE5LU vgW1OvWAWgleinMh94cF0 wZcNuShZ4WRbf Z0HclyU0DTApeINpYYioA CJ0P66si8W4SKWqQXEdDI S0zNI2lK7xaQhkzavbkVT mdDsgdmVydGlj ZIfpPYlyK745PPGpaJlmN kZlbWFsZTwvdGQ+PHRkIH O0xLwcXEyeHGIwvS5vDNJ yY2t0PvEwMuO4 UWddH7MxEBFkxskaMh52r J0xEfOmVpA3ZWnbY2Qnnf N2BQDqqZLiNVfaREQ5X92 tq6I1QXYcNQRw JXF0jWX6bU3lyPbwzkgwu GVmdDsgdmVydGljYWwtYW xaP319QTZcgPwcFkWkJHY jWR7wxZxhvQC+ HO11gw17W2SxHmqvRfb8G ZVaHYZ6nTQ4nC1wXHHmYD iah5B9wZG9R4NwyzGupq9 ac6enKPIaADlu Q34wzJSzd3M0XDWjrWM9Y QStxXktCdFenJ08Jrc+PG JemPdgz6IwMytpy2hso6c dbVc8NxNiBHKf ooDjaYstELA5s8VyNq63J 29sIHdpZHRoPSIzMCUiIH UgcPtqmf9waS6eLf6+PGN ktCJ6kHS5rE1k XvJoBgF2CBupZ101MgFsd ISgIdvjc2ztn0ersGm9Uf SjUXJwnsBjzUstSWY2y7O aWq26R3DigKwt k5VpAka1au22iXMmk2K8u PF5E1SgGQDxtikutYSwpB qxEC2kKMKvbcleKAMawB4 bEQIpQ0s6CuZj QiJ0EZbfV0IcaiU0UJMkh ODmZLUnqZYBaQ2wwnqbz0 udpfflDyJwPCWkVJc3CYu 0LWFsaWduOiBs SNU5ObU6NDT0bBUadM7kd AujiavpvC2lAhn+UGh5c2 ihmTBpFI9wwGK6VL87EU1 5lSOpl6C6sXW2 Z0TwSUFgvozjxqkyrKV6Z TQlAMOxtO65Sw2mdBdlZo 2gLFZbNEF8KTTrfBDpD0Y ilV6vEdSiSKKt SUQeP7GyuLYqMMsoF041W RmgFoL4PFFpyjXqY6ZsXS AaiZgwNoK3w4C0Ex6OGE1 9PI66EH76vMIt p7Q1sJO3T2DwDEGmrxmtk yospZF3HHTnZMXwfF09Is 6suTzeJu2rUQEeNZN3IRO ssSNaL4ZxoP1h EwPwUSWwCONmM6JvcBTuM WugU745WMieVgH1AJCwmx AmV9YjNAOjmHzrUaE5x3I 2Zq6MQa42UW24 YR92mFAhe3Q4gLY9O6PbL GJhidfcjgiouIH2KNVtYU AfeS89Mg5miAifCk8uGBK mDXE5DIHxgHUd B1AylF3cOxBaOJDhJNEaG 0SygZCnYUjfN166PHjmRl L4MVEumuPlC2YnCFAfxFe mGuW1n5B2Cw3I MUcpeqh8A9NlTzcykFP+P R23QEDkIR04oLDktXDvg0 kmpWx4ZaNfDXCtXHL7bWy sMDsbt2WsOYCc Y29s (more content not included)... [facility] ED Note-Physicianon 04-16-20 ED Note-Physician Basic Information Time Seen: Robinson Galvan PA-C 04/14/2022 14:53 Chief Complaint pt c/o allergic reaction to possibly motrin. pt was having swelling and redness in the face and tongue. ppt c/o sob. 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 History of Present Illness 31-year-old female [...] tab(s), Oral, Daily Follow-up With When Contact [facility] In 3 days 04/17/2022 EDT [address] [place] [address]- Business (1) Additional Instructions: Patient Education Anaphylactic Reaction, Adult Attestation Patient seen (more content not included)... [facility] Comment on above: Result Comment: Elec tronically Signed By: Robinson Galvan PA-C\.br\Date and Time Signed: 04/14/22 18:33 EDT\.br\Electronically Co-Signed By: Saúl Gaspar MD\.br\Date and Time Co-Signed: 04/15/22 23:22 EDT Consent for Treatmenton Consent for Treatment [id number] .00CD:127 Normal [facility] Discharge Instructionson Discharge Instructions [id number] 1.00CD:127 Normal [facility] ED Clinical Summaryon 2021 ED Clinical Summary [place] [id number] ED Clinical Summary Person Information Name: RJ ELENA Calista/[facility] Age: 31 Years : 1990 Sex: Female Language: Burmese PCP: Mark Pitts DO Marital Status: Single Phone: [phone] Visit Id: Visit Reason: Allergic reaction - [...] 04/14/2022 19:42:49 04/14/2022 19:42:49 04/14/2022 19:42:49 ADDRESS: [address] [place] [id number] PHYS DOC NOTES: MEDICAL INFORMATION: Prescriptions Given: New Medications [facility], [address] [place], [place] [id number], [phone] epinephrine (EpiPen 2-Ze 0.3 mg injectable kit) 1 Each Intramuscular As Directed. May substitute for another brand if required by insurance or inventory. Refills: 0. famotidine (Pepcid 40 mg Tab) 1 Tablets By Mouth once a day (at bedtime) for 7 Days. Refills: 0. Medications to Continue Taking That Have Changed [facility], [address] [place], [place] [id number], [phone] START: predniSONE (predniSONE 20 mg Tab) 3 [...] Reaction, Adult Follow up: With: Address: When: [address] [address] Business (1) In 3 days 04/17/2022 DIAGNOSIS: 1:Anaphylaxis Normal [facility] ED Patient Education Noteon 04-14-2022 ED Patient [...] Symptoms of anaphylaxis may include: ? Feeling engineering drawings checker the face (flushed). This may include redness. [...] have hives or rash: ? Use an ryta-nxb-qcpupex antihistamine as told by your health care provider. ? Apply cold, wet cloths (cold compresses) to your skin or take baths or showers in cool water. Avoid hot water. ? Take fkbt-cmw-zembpat and prescription medicines only as told by your health care provider. ? Tell all your health care providers that you have an allergy. ? Keep all follow-up visits as told by your health care provider. This is important. How is this prevented? ? Avoid allergens that have caused an anaphylactic reaction in the past. ? When you are at a restaurant, tell your traffic observer that you have an allergy. If you are not sure whether a menu item contains an ingredient that you are allergic to, ask your traffic observer. Where to find more information ? [employer] [employer]: aaaai.org ? [place] [employer]: healthychildren.org Get help right [...] medicine s (more content not included)... Normal [facility] ED Patient Summaryon 022 ED Patient Summary [place] [id number] Patient Discharge Instructions Person Information Name: RJ ELENA Age: 31 Years Arrival Date: 04/14/2022 14:45:02 Discharge Diagnosis: 1:Anaphylaxis Primary Care Physician: Mark Pitts DO Provider Information Primary Provider: Saúl Gaspar MD Advanced Plant [employer] Supervisor:Robinson Galvan PA-C The exam and treatment you received in the Emergency Department were for an urgent problem and are not intended as complete care. It is important that you follow up with a doctor, nurse practitioner, or physician?s music assistant for ongoing care. If your symptoms [...] Follow-up Instructions: With: Address: When: Mark Pitts [address] [place] [address] [facility] () In 3 days 04/17/2022 In the event that this physician does not participate in your insurance network, please consult with your insurance company to find a nearby participating provider. Patient Education Materials: Anaphylactic Reaction, Adult A MESSAGE TO ALL PATIENTS REGARDING OPIOIDS PRESCRIPTION OPIOIDS: WHAT YOU NEED TO KNOW Prescription opioids can be used to help relieve hjxewzwh-ch-mxodfd pain and are often prescribed following a [...] be struggling with addiction, tell your health transitional care nurse and ask for guidance or call SAMHSA?S National Helpline at 6-769-449-HELP. v Source (more content not included)... Normal [facility] Covid-19 PCR (CVDTBH)on SARS-CoV-2 (COVID-19) RNA YARELY+probe Ql (Unsp spec) Detected Critically abnormal NOT DETECTED [facility] Comment on above: Result Comment: This test is not yet approved or cleared by the [place] FDA. When there are no FDA-approved or cleared tests available, and other criteria are met, FDA can make tests available under an emergency access mechanism called an Emergency Use Authorization (EUA). The EUA for this test is supported by the [place] of Health and Human Service's (HHS's) declaration [...] used). Performed By: #### C VDTB #### [facility] [address] [place] [address] Dr. Tj Wild CBC AUTO DIFFon 07-05-2021 BASO # 0.0 103/ul Normal 0.0-0.1 [facility] Comment on above: Performed By: #### C BC #### [facility] [address] [place] [address] Dr. Tj Wild Basophils/100 WBC (Bld) 0.1 % Critically low 0.2-2.0 [facility] Comment on above: Performed By: #### C BC #### [facility] [address] [place] [address] Dr. Tj Wild EO # 0.0 103/ul Normal 0.0-0.7 [facility] Comment on above: Performed By: #### C BC #### [facility] [address] [place] [address] Dr. Tj Wild Eosinophils/100 WBC (Bld) 0.0 % Critically low 0.9-7.0 [facility] Comment on above: Performed By: #### C BC #### [facility] [address] [place] [address] Dr. Tj Wild Erythrocyte distribution width (RBC) [Ratio] 17.2 % Critically high 11.0-15.0 [facility] Comment on above: Performed By: #### C BC #### [facility] [address] [place] [address] Dr. Tj Wild Hematocrit (Bld) [Volume fraction] 36.3 % Normal 36.0-48.0 [facility] Comment on above: Performed By: #### C BC #### [facility] [address] [place] [address] Dr. Tj Wild Hemoglobin (Bld) [Mass/Vol] 12.3 g/dL Normal 12.0-16.0 [facility] Comment on above: Performed By: #### C BC #### [facility] [address] [place] [address] Dr. Tj Wild IG # 0.08 10e3/ul Critically high 0.00-0.03 [facility] Comment on above: Performed By: #### C BC #### [facility] [address] [place] [address] Dr. Tj Wild IG % 0.5 % Normal 0.0-0.5 [facility] Comment on above: Performed By: #### C BC #### [facility] [address] [place] [address] Dr. Tj Wild LYMPH # 2.2 103/ul Normal 1.2-3.8 [facility] Comment on above: Performed By: #### C BC #### [facility] [address] [place] [address] Dr. Tj Wild Lymphocytes/100 WBC (Bld) 13.8 % Critically low 20.5-60.0 [facility] Comment on above: Performed By: #### C BC #### [facility] [address] [place] [address] Dr. Tj Wild MANUAL DIFF REQ NO Normal [facility] Comment on above: Performed By: #### C BC #### [facility] [address] [place] [address] Dr. Tj Wild MCH (RBC) [Entitic mass] 26.6 pg Critically low 26.7-34.0 [facility] Comment on above: Performed By: #### C BC #### [facility] [address] [address] [address] Tj Wild MCHC (RBC) [Mass/Vol] 33.9 g/dL Normal 29.9-35.2 [facility] Comment on above: Performed By: #### C BC #### [facility] [address] [address] [address] Tj Wild MCV (RBC) [Entitic vol] 78.4 fL Critically low 81.0-99.0 [facility] Comment on above: Performed By: #### C BC #### [facility] [address] [address] [address] Tj Wild MONO # 0.7 103/ul Normal 0.3-0.8 [facility] Comment on above: Performed By: #### C BC #### [facility] [address] [place] [address] Dr. Tj Wild Monocytes/100 WBC (Bld) 4.6 % Normal 1.7-12.0 [facility] Comment on above: Performed By: #### C BC #### [facility] [address] [address] [address] Tj Wild NEUT # 12.9 103/ul Critically high 1.4-6.5 [facility] Comment on above: Performed By: #### C BC #### [facility] [address] [place] [address] Dr. Tj Wild Neutrophils/100 WBC (Bld) 81.0 % Critically high 43.0-75.0 [facility] Comment on above: Performed By: #### C BC #### [facility] [address] [address] [address] Tj Wild Platelet mean volume (Bld) [Entitic vol] 10.3 fL Normal 9.5-13.5 [facility] Comment on above: Performed By: #### C BC #### [facility] [address] [place] [address] Dr. Tj Wild PLT 254 103/ul Normal 150-450 [facility] Comment on above: Performed By: #### C BC #### [facility] [address] [place] [address] Dr. Tj Wild RBC 4.63 106/ul Normal 4.20-5.40 [facility] Comment on above: Performed By: #### C BC #### [facility] [address] [place] [address] Dr. Tj Wild WBC 16.0 103/ul Critically high 4.0-11.0 [facility] Comment on above: Performed By: #### C BC #### [facility] [address] [place] [address] Dr. Tj Wild Covid-19 PCR (CVDTBH)on 06-10 SARS-CoV-2 (COVID-19) RNA YARELY+probe Ql (Unsp spec) Not detected Normal NOT DETECTED [facility] Comment on above: Result Comment: When [...] for this test is supported by the Associate Account Director of Health and Human Service's declaration that [...] used). Performed By: #### C VDTBH #### [facility] [address] [place] [address] Dr. Tj Larios-DIMERon 07-05-2021 D-DIMER 6.07 mg/L FEU Critically high 0.19-0.50 [facility] Comment on above: Performed By: #### D DIM #### [facility] [address] [place] [address] Dr. Yilan Wild D-DIMER COMMENTS SEE BELOW Normal [facility] Comment on above: Result Comment: Incr eases [...] hospitalization. Performed By: #### D DIM #### [facility] [address] [place] [address] Dr. Tj Wild PREG HCG QUALon 07-05-2021 , QUAL Negative Normal NEGATIVE [facility] Comment on above: Performed By: #### P REG #### [facility] [address] [place] [address] Dr. Tj Wild PROF 14(COMP METB)on 021 Albumin [Mass/Vol] 3.5 g/dL Normal 3.5-5.0 [facility] Comment on above: Performed By: #### H STROPN, CMP #### [facility] [address] [place] [address] Dr. Tj Wild Albumin/Globulin [Mass ratio] 1.1 {ratio} Normal [facility] Comment on above: Performed By: #### H STROPN, CMP #### [facility] [address] [place] [address] Dr. Tj Wild ALP [Catalytic activity/Vol] 56 U/L Normal 38-126 [facility] Comment on above: Performed By: #### H STROPN, CMP #### [facility] [address] [address] [address] Tj Wild ALT [Catalytic activity/Vol] 21 U/L Normal 9-52 [facility] Comment on above: Performed By: #### H STROPN, CMP #### [facility] [address] [place] [address] Dr. Tj Wild Anion gap [Moles/Vol] 14.4 mmol/L Normal [facility] Comment on above: Performed By: #### H STROPN, CMP #### [facility] [address] [address] [address] Tj Wild AST [Catalytic activity/Vol] 27 U/L Normal 14-36 [facility] Comment on above: Performed By: #### H STROPN, CMP #### [facility] [address] [address] [address] Tj Wild Bilirubin [Mass/Vol] 0.5 mg/dL Normal 0.2-1.3 [facility] Comment on above: Performed By: #### H STROPN, CMP #### [facility] [address] [address] [address] Tj Wild Calcium [Mass/Vol] 8.7 mg/dL Normal 8.4-10.2 [facility] Comment on above: Performed By: #### H STROPN, CMP #### [facility] [address] [place] [address] Dr. Tj Wild Chloride [Moles/Vol] 101 mmol/L Normal 98-107 [facility] Comment on above: Performed By: #### H STROPN, CMP #### [facility] [address] [address] [address] Tj Wild CO2 [Moles/Vol] 26.3 mmol/L Normal 22.0-30.0 [facility] Comment on above: Performed By: #### H STROPN, CMP #### [facility] [address] [place] [address] Dr. Tj Wild Creatinine [Mass/Vol] 0.89 mg/dL Normal 0.52-1.04 [facility] Comment on above: Performed By: #### H STROPN, CMP #### [facility] [address] [place] [address] Dr. Tj Wild EGFR-AF ITALIAN >60 Normal >=60 [facility] Comment on above: Performed By: #### H STROPN, CMP #### [facility] [address] [place] [address] Dr. Tj Wild EGFR-NON AF ITALIAN >60 Normal >=60 [facility] Comment on above: Performed By: #### H STROPN, CMP #### [facility] [address] [address] [address] Tj Wild Globulin (S) [Mass/Vol] 3.3 g/dL Normal [facility] Comment on above: Performed By: #### H STROPN, CMP #### [facility] [address] [address] [address] Tj Wild Glucose [Mass/Vol] 116 mg/dL Critically high 74-106 [facility] Comment on above: Performed By: #### H STROPN, CMP #### [facility] [address] [address] [address] Tj Wild Potassium [Moles/Vol] 3.7 mmol/L Normal 3.4-5.0 [facility] Comment on above: Performed By: #### H STROPN, CMP #### [facility] [address] [place] [address] Dr. Tj Wild Protein [Mass/Vol] 6.8 g/dL Normal 6.1-8.2 [facility] Comment on above: Performed By: #### H STROPN, CMP #### [facility] [address] [place] [address] Dr. Tj Wild Sodium [Moles/Vol] 138 mmol/L Normal 137-145 [facility] Comment on above: Performed By: #### H STROPN, CMP #### [facility] [address] [place] [address] Dr. Tj Wild Urea nitrogen [Mass/Vol] 20.0 mg/dL Critically high 7.0-17.0 [facility] Comment on above: Performed By: #### H STROPN, CMP #### [facility] [address] [place] [address] Dr. Tj Wild Urea nitrogen/Creatinine [Mass ratio] 22.5 mg/mg Normal [facility] Comment on above: Performed By: #### H STROPN, CMP #### [facility] [address] [place] [address] Dr. Tj Wild TROPONIN, HIGH SENSITIVITYon 07-05-2021 HSTROP 10.4 pg/mL Normal 4.0-35.5 [facility] Comment on above: Result Comment: CUT- OFF POINTS HAVE BEEN ESTABLISHED BASED ON THE FOURTH UNIVERSAL DEFINITIONS OF MYOCARDIAL INFARCTION. THE UPPER REFERENCE LIMIT (URL) OF TROPONIN, DEFINED THE 99TH PERCENTILE OF cTnI DISTRIBUTION IN A REFERENCE POPULATION, HAS BEEN CONFIRMED THE DECISION THRESHOLD FOR IA DIAGNOSIS. Performed By: #### H STROPN, CMP #### [facility] [address] [address] [address] Tj Wild XR CHEST 1 Von [...] Cassius MCKEON Date: 2021-07-05 20:[address] [facility] Vital Signs Date Time Vital Sign Value Performing Clinician Facility 08-21-2023 11:12-0500 Body mass index (BMI) [Ratio] 32.95 kg/m2 Bhumika COKER Work Phone: [facility] 08-21-2023 11:12-0500 Body weight 84.37 kg Bhumika COKER Work Phone: [facility] 08-21-2023 11:12-0500 Diastolic blood pressure 60 mm[Hg] Bhumika COKER Work Phone: [facility] 08-21-2023 11:12-0500 Systolic blood pressure 110 mm[Hg] Bhumika COKER Work Phone: [facility] 02-26-2023 15:56-0400 Body temperature 98.78 [degF] Charlie Rubalcava [facility] 02-26-2023 15:56-0400 Diastolic blood pressure 76 mm[Hg] Charlie Rubalcava [facility] 02-26-2023 15:56-0400 Heart rate 107 /min Charlie Rubalcava [facility] 02-26-2023 15:56-0400 Respiratory rate 16 /min Charlie Rubalcava [facility] 02-26-2023 15:56-0400 SaO2% (BldA) [Mass fraction] 98 % Charlie Rubalcava [facility] 02-26-2023 15:56-0400 Systolic blood pressure 115 mm[Hg] Charlie Rubalcava [facility] 12-31-2022 10:16-0400 Body temperature 98.24 [degF] Javier Woods [facility] 12-31-2022 10:16-0400 Diastolic blood pressure 82 mm[Hg] Javier Woods [facility] 12-31-2022 10:16-0400 Heart rate 90 /min Javier Woods [facility] 12-31-2022 10:16-0400 Respiratory rate 18 /min Javier Woods [facility] 12-31-2022 10:16-0400 SaO2% (BldA) [Mass fraction] 99 % Javier Woods [facility] 12-31-2022 10:16-0400 Systolic blood pressure 129 mm[Hg] Javier Woods [facility] 12-30-2022 13:13-0400 Body temperature 98.06 [degF] Javier Reynae [facility] 12-30-2022 13:13-0400 Diastolic blood pressure 75 mm[Hg] Javier Woods [facility] 12-30-2022 13:13-0400 Heart rate 88 /min Javier oWods [facility] 12-30-2022 13:13-0400 Respiratory rate 16 /min Javier Woods [facility] 12-30-2022 13:13-0400 SaO2% (BldA) [Mass fraction] 96 % Javier Woods [facility] 12-30-2022 13:13-0400 Systolic blood pressure 125 mm[Hg] Javier Woods [facility] 12-21-2022 13:35-0400 Body temperature 98.24 [degF] Charlie Rubalcava [facility] 12-21-2022 13:35-0400 Diastolic blood pressure 77 mm[Hg] Charlie Khadar [facility] 12-21-2022 13:35-0400 Heart rate 93 /min Charlie Khadar [facility] 12-21-2022 13:35-0400 Respiratory rate 18 /min Charlie Khadar [facility] 12-21-2022 13:35-0400 SaO2% (BldA) [Mass fraction] 99 % Charlie Rubalcava [facility] 12-21-2022 13:35-0400 Systolic blood pressure 128 mm[Hg] Charlie Khadar [facility] 09-05-2022 22:53-0500 Diastolic blood pressure 63 mm[Hg] Kaylinn Dokken [facility] 09-05-2022 22:53-0500 Heart rate 93 /min Kaylinn Dokken [facility] 09-05-2022 22:53-0500 Mean blood pressure 80 mm[Hg] Kaylinn Dokken [facility] 09-05-2022 22:53-0500 Respiratory rate 20 /min Kaylinn Dokken [facility] 09-05-2022 22:53-0500 SaO2% (BldA) [Mass fraction] 95 % Kaylinn Dokken [facility] 09-05-2022 22:53-0500 Systolic blood pressure 114 mm[Hg] Kaylinn Dokken [facility] 09-05-2022 21:45-0500 Diastolic blood pressure 60 mm[Hg] Kaylinn Dokken [facility] 09-05-2022 21:45-0500 Heart rate 97 /min Kaylinn Dokken [facility] 09-05-2022 21:45-0500 Mean blood pressure 80 mm[Hg] Kaylinn Dokken [facility] 09-05-2022 21:45-0500 Respiratory rate 16 /min Kaylinn Dokken [facility] 09-05-2022 21:45-0500 SaO2% (BldA) [Mass fraction] 93 % Kaylinn Dokken [facility] 09-05-2022 21:45-0500 Systolic blood pressure 119 mm[Hg] Kaylinn Dokken [facility] 09-05-2022 21:03-0500 Body temperature 97.52 [degF] Kaylinn Dokken [facility] 09-05-2022 21:03-0500 Diastolic blood pressure 56 mm[Hg] Kaylinn Dokken [facility] 02-27-2023 21:03-0500 Heart rate 115 /min Quita Clark [facility] 09-05-2022 21:03-0500 Respiratory rate 32 /min Perlan Gretaen [facility] 09-05-2022 21:03-0500 SaO2% (BldA) [Mass fraction] 95 % Quita Hernandesen [facility] 09-05-2022 21:03-0500 Systolic blood pressure 123 mm[Hg] Quita Hernandesen [facility] 04-14-2022 19:00-0400 Diastolic blood pressure 70 mm[Hg] Saúl Hubert [facility] 04-14-2022 19:00-0400 Heart rate 91 /min Saúl Hubert [facility] 04-14-2022 19:00-0400 Mean blood pressure 83 mm[Hg] Saúl Hubert [facility] 04-14-2022 19:00-0400 Respiratory rate 14 /min Saúl Hubert [facility] 04-14-2022 19:00-0400 SaO2% (BldA) [Mass fraction] 96 % Saúl Hubert [facility] 04-14-2022 19:00-0400 Systolic blood pressure 110 mm[Hg] Saúl Hubert [facility] 04-14-2022 18:22-0400 Diastolic blood pressure 64 mm[Hg] Saúl Hubert [facility] 04-14-2022 18:22-0400 Heart rate 87 /min Saúl Hubert [facility] 04-14-2022 18:22-0400 Mean blood pressure 76 mm[Hg] Saúl Hubert [facility] 04-14-2022 18:22-0400 Respiratory rate 20 /min Saúl Hubert [facility] 04-14-2022 18:22-0400 SaO2% (BldA) [Mass fraction] 95 % Saúl Hubert [facility] 04-14-2022 18:22-0400 Systolic blood pressure 100 mm[Hg] Saúl Hubert [facility] 04-14-2022 17:00-0400 Diastolic blood pressure 61 mm[Hg] Saúl Hubert [facility] 04-14-2022 17:00-0400 Respiratory rate 19 /min Saúl Hubert [facility] 04-14-2022 17:00-0400 SaO2% (BldA) [Mass fraction] 93 % Saúl Hubert [facility] 04-14-2022 17:00-0400 Systolic blood pressure 105 mm[Hg] Saúl Hubert [facility] 04-14-2022 15:35-0400 Heart rate 92 /min Saúl Hubert [facility] 04-14-2022 15:35-0400 Respiratory rate 16 /min Saúl Hubert [facility] 04-14-2022 14:48-0400 Body temperature 98.06 [degF] Saúl Hubert [facility] 04-14-2022 14:48-0400 Heart rate 113 /min Saúl Hubert [facility] 04-14-2022 14:48-0400 Respiratory rate 18 /min Saúl Hubert [facility] 11-19-2021 19:00-0400 Hourly Rounding Javier Woods [facility] 11-19-2021 19:00-0400 Promise to Return Javier Peggy [facility] 11-19-2021 18:45-0400 Diastolic blood pressure 64 mm[Hg] Javier Peggy [facility] 11-19-2021 18:45-0400 Heart rate 85 /min Javier Peggy [facility] 11-19-2021 18:45-0400 Mean blood pressure 76 mm[Hg] Javier Peggy [facility] 11-19-2021 18:45-0400 Respiratory rate 16 /min Javier Peggy [facility] 11-19-2021 18:45-0400 SaO2% (BldA) [Mass fraction] 98 % Javier Peggy [facility] 11-19-2021 18:45-0400 Systolic blood pressure 100 mm[Hg] Javier Peggy [facility] 11-19-2021 18:15-0400 Diastolic blood pressure 70 mm[Hg] Javier Peggy [facility] 11-19-2021 18:15-0400 Heart rate 84 /min Javier Peggy [facility] 11-19-2021 18:15-0400 Mean blood pressure 85 mm[Hg] Javier Peggy [facility] 11-19-2021 18:15-0400 Respiratory rate 16 /min Javier Peggy [facility] 11-19-2021 18:15-0400 SaO2% (BldA) [Mass fraction] 96 % Javier Peggy [facility] 11-19-2021 18:15-0400 Systolic blood pressure 114 mm[Hg] Javier Peggy [facility] 11-19-2021 17:45-0400 Diastolic blood pressure 71 mm[Hg] Javier Woods [facility] 11-19-2021 17:45-0400 Heart rate 86 /min Javier Woods [facility] 11-19-2021 17:45-0400 Mean blood pressure 81 mm[Hg] Javier Woods [facility] 11-19-2021 17:45-0400 Respiratory rate 16 /min Javier Woods [facility] 11-19-2021 17:45-0400 SaO2% (BldA) [Mass fraction] 97 % Javier Woods [facility] 11-19-2021 17:45-0400 Systolic blood pressure 102 mm[Hg] Javier Woods [facility] 11-19-2021 15:45-0400 Blood Pressure Location Javier Woods [facility] 11-19-2021 15:22-0400 Body temperature 98.24 [degF] Javier Woods [facility] 11-19-2021 15:22-0400 Heart rate 111 /min Javier Woods [facility] Encounters Encounter Date Encounter Type Care Provider Facility Start: 09-19-2023 End: 09-19-2023 ambulatory BHUMIKA MO Not Available Start: 09-04-2023 End: 09-04-2023 ambulatory BRODERICK NICKERSON Not Available Start: 08-22-2023 Clinisync Result Encounter Bhumika COKER Work Phone: [facility] Unsolicited Start: 08-22-2023 Clinisync Result Encounter Bhumika COKER Work Phone: [facility] Unsolicited Start: 08-21-2023 End: 08-21-2023 ambulatory BHUMIKA CHEPE Not Available Start: 08-21-2023 End: 08-21-2023 Office outpatient visit 15 minutes Bhumika COKER Work Phone: [facility] Comment on above: Third trimester preg baltazar; Diabetes mellitus screening; BV (bacterial vaginosis); Nausea Start: 07-20-2023 End: 07-20-2023 ambulatory BRODERICK NICKERSON Not Available Start: 06-15-2023 End: 06-15-2023 ambulatory BHUMIKA MO Not Available Start: 02-26-2023 End: 02-26-2023 Emergency department patient visit Charlie Rubalcava Facility:[facility] Start: 02-26-2023 End: 02-26-2023 Emergency department patient visit Charlie Rubalcava [facility] Start: 01-30-2023 End: 01-31-2023 ambulatory Willa ANDERSON [facility] Start: 12-31-2022 End: 12-31-2022 Emergency department patient visit Javier Woods Facility:[facility] Start: 12-31-2022 End: 12-31-2022 Emergency department patient visit Javier Woods [facility] Start: 12-30-2022 End: 12-30-2022 Emergency department patient visit Javier Woods Facility:[facility] Start: 12-30-2022 End: 12-30-2022 Emergency department patient visit Javier Woods [facility] Start: 12-26-2022 End: 12-27-2022 ambulatory John MALONEY Facility:[facility] Start: 12-21-2022 End: 12-21-2022 Emergency department patient visit Charlie Rubalcava Facility:[facility] Start: 12-21-2022 End: 12-21-2022 Emergency department patient visit Charlie Rubalcava [facility] Start: 12-15-2022 End: 12-16-2022 ambulatory John MALONEY Facility:[facility] Start: 09-05-2022 End: 09-06-2022 Emergency department patient visit Quita Clark Facility:[facility] Start: 09-05-2022 End: 09-05-2022 Emergency department patient visit Quita Clark [facility] Start: 09-04-2022 End: 09-04-2022 Emergency department patient visit Solo Minayaamparo Facility:[facility] Start: 07-27-2022 End: 07-27-2022 Emergency department patient visit Saúl Gaspar Facility:[facility] Start: 04-14-2022 End: 04-14-2022 Emergency department patient visit Saúl Gaspar Facility:[facility] Start: 04-14-2022 End: 04-14-2022 Emergency department patient visit Saúl Gaspar [facility] Start: 01-13-2022 End: 01-13-[address] HOLLIE RUBI Facility: Start: 11-19-2021 End: 11-19-2021 Emergency department patient visit Javier Woods [facility] Start: 07-05-2021 End: 07-06-2021 ambulatory PHILLIP LORA Facility: Procedures Date Procedure Procedure Detail Performing Clinician Start: 08-22-2023 ALL CBC WITH AUTO DIFF Bhumika COKER Work Phone: Start: 08-21-2023 Urnls dip stick/tabl et rgnt non-auto w/o micrscp Bhumika COKER Work Phone: Start: 06-15-2023 Cytp cerv/vag auto t hin layer prep mnl screen Broderick Herrono DO Work Phone: None (qualifier value) Javier Woods Plan of Treatment Date Care Activity Detail Author Start: 09-04-2023 End: 09-04-2023 Patient encounter procedure 09/04/2023 8:30 AM EST Routine [facility] [address] [place] [address] Broderick Nickerson, DO [address] [place] [address] [facility] Start: 08-21-2023 End: 08-21-2024 CBC panel - Blood by Automated count CBC Lab Routine Diabetes mellitus screening Expected: 08/21/2023 (Approximate), Expires: 08/21/2024 [facility] Work Phone: Comment on above: Expected: 08/21/2023 (Approximate), Expires: 08/21/2024 Start: 08-21-2023 End: 08-21-2024 Measurement of glucose 1 hour after glucose challenge for glucose tolerance test Glucose tolerance, 1 hour Lab Routine Diabetes mellitus screening Expected: 08/21/2023 (Approximate), Expires: 08/21/2024 [facility] Comment on above: Expected: 08/21/2023 (Approximate), Expires: 08/21/2024 Payers Date Payer Category Payer Medicaid [employer] [facility] [place] [id number] 2022-Present [address] [address] [place] [address] [id number] 1990 Unknown [id number] [id number] 1990 Unknown [id number] 2.16.840.1.580009.3.579.2.593 1990 Unknown [id number] 2.16.840.1.080669.3.579.2.727 1990 Unknown [id number] 2.16.840.1.657866.3.579.2.727 1990 Unknown [id number] 2.16.840.1.809385.3.579.2.727 1990 Unknown [id number] 2.16.840.1.169800.3.579.2.727 1990 Unknown [id number] 2.16.840.1.836602.3.579.2.727 1990 Unknown [id number] 2.16.840.1.945647.3.579.2.727 1990 Unknown [id number] 2.16.840.1.926464.3.579.2.727 1990 Unknown [id number] 2.16.840.1.524396.3.579.2.727 1990 Unknown [id number] 2.16.840.1.941107.3.579.2.727 1990 Unknown [id number] 2.16.840.1.030977.3.579.2.727 1990 Unknown [id number] 2.16.840.1.434789.3.579.2.727 1990 Unknown [id number] 2.16.840.1.363966.3.579.2.9 1990 Unknown [id number] 2.16.840.1.117963.3.579.2.1259 1990 Unknown [id number] 2.16.840.1.963174.3.579.2.1259 1990 Unknown [id number] 2.16.840.1.382403.3.579.2.1259 1990 Unknown [id number] 2.16.840.1.904662.3.579.2.1259 1959 Unknown [id number] Self-pay Social History Date Type Detail Facility Tobacco Cigarettes [facility] Comment on above: 1 ppd Sex Assigned At Female [facility] Start: 04-14-2022 Tobacco smoking status Heavy tobacco smoker (finding) [facility] Tobacco smoking status NHIS Tobacco smoking consumption unknown [facility] Start: 02-14-2023 [facility] Start: 1990 Sex Assigned At Not on file N [facility] Functional Status Date Assessment Result Facility 02-26-2023 Functional Status N/A [facility] 12-31-2022 Functional Status N/A [facility] 12-30-2022 Functional Status N/A [facility] 12-21-2022 Functional Status N/A [facility] 09-05-2022 Functional Status N/A [facility] 04-14-2022 Functional Status N/A [facility] Clinical Notes 07-06-2021 to 08-21-2023 JOHN [...] JOHN PAUL Ardon documented in this encounter [facility] 02-26-2023 Hospital Discharg e instructions Patient Education [...] condition. Follow these instructions at home: Take uoxh-ooa-wegerpt and prescription medicines only as told by [...] and water are not available, use hand grocery bagger. Avoid contact with people who have cold [...] it is easier to cough up. Take jcsa-pij-wsivxsw and prescription medicines only as told by [...] provider. Document Revised: 10/27/2021 Document Reviewed: 10/27/2021 [employer] Patient Education 2022 [employer]. Follow Up Care 02/26/2023 15:53:57 With:Mark Chalmette Address: [address] [place] [address] Business (1) When:03/01/2023 17:54:59 Comments:Call the office [...] you develop any new or worsening symptoms. [facility] 02-26-2023 Evaluation + Plan note Extrac kathi from: Title:ED Note Author:Namrata CAO, Juan yPle Jordan e:02/26/23 Bronchitis (J40: Bronchitis, not specified as acute or chronic) Upper respiratory infection (J06.9: Acute upper respiratory infection, unspecified) Orders: albuterol, 2 puff(s), Inhalation, q4hr for 7 day(s), 8.5 gm, Refill(s) 0, [facility], [facility], cm, 02/26/23 15:59:00 EDT, Height/Length Dosing, 85.6, kg, 02/26/23 15:59:00 EDT, Weight Dosing brompheniramine/dextromethorphan/PSE, 5 mL, Oral, QID for cold symptoms, 200 mL, Refill(s) 0, [facility], 160, cm, 02/26/23 15:59:00 EDT, Height/Length Dosing, 85.6, kg, 02/26/23 15:59:00 EDT, Weight Dosing guaifenesin, 600 mg = 1 tab(s), Oral, q12hr, X 7 day(s), # 14 tab(s), Refills(s) 0, Pharmacy: [facility], 160, cm, 02/26/23 15:59:00 EDT, Height/Length Dosing, 85.6, kg, 02/26/23 15:59:00 EDT, Weight Dosing predniSONE, 60 mg = 3 tab(s), Oral, Daily, X 5 day(s), # 15 tab(s), Refills(s) 0, Pharmacy: [facility], 160, cm, 02/26/23 15:59:00 EDT, Height/Length Dosing, 85.6, kg, 02/26/23 15:59:00 EDT, Weight Dosing Rapid COVID Antigen ([facility]) [facility]06-24-2023 Hospital Discharge instructions Patient Education 12/31/2022 10:41:35 [...] if you start to feel better. Take xjtt-faj-fanpxiw and prescription medicines only as told by [...] provider. Document Revised: 09/08/2021 Document Reviewed: 09/08/2021 [employer] Patient Education 2022 [employer]. Follow Up Care 12/31/2022 10:02:50 With:Mark Chalmette Address: [address] [place] [phone]- Business (1) When:01/03/2023 10:36:17 Comments:Follow-up with your primary care provider in 3 to 5 days. If symptoms worsen, do not improve, or new symptoms arise please report back to emergency department for further evaluation. [facility]06-23-2023 Hospital Discharge instructions Follow Up Care 12/30/2022 13:07:17 With:Mark Chalmette Address: [address] [place] [phone]- Business (1) When:Within 3 Day(s) [facility]06-23-2023 Evaluation + Plan noteExtracted from: Title:ED Note Author:Javier Woods DO Date:12/09 09/29 Otitis externa, left (H60.92 : Unspecified otitis externa, left ear) Orders: ciprofloxacin-dexamethasone otic, 5 drop(s), Otic, BID for 7 day(s), 7.5 mL, Refill(s) 0, [facility], 160, cm, 12/30/22 13:14:00 EDT, Height/Length Dosing, 85.6, kg, 12/30/22 13:14:00 EDT, Weight Dosing [facility]06-14-2023 Hospital Discharge instructions Patient Education 12/21/2022 14:54:11 [...] or swathi your foot. General instructions Take yqro-pce-ysymfjx and prescription medicines only as told by [...] provider. Document Revised: 10/16/2020 Document Reviewed: 10/16/2020 [employer] Patient Education 2022 [employer]. 12/21/2022 14:54:11 Elastic Bandage and RICE Therapy [...] limityour activities and whether you should start pgbat-px-zsidmi exercises for your injury. Ice Ice your [...] provider. Document Revised: 08/21/2020 Document Reviewed: 03/16/2018 [employer] Patient Education 2020 [employer]. 12/21/2022 14:54:11 Ankle Sprain, Phase II Rehab [...] by your health care provider. Stretching and phqvp-wo-wjbsav exercises These exercises warm up your muscles [...] provider. Document Revised: 08/19/2021 Document Reviewed: 08/19/2021 [employer] Patient Education 2022 [employer]. 12/21/2022 14:54:11 Ankle Sprain, Phase I Rehab [...] told by your healthcare provider. Stretching and lefhv-ma-svdoki exercises These exercises warm up your muscles [...] provider. Document Revised: 08/19/2021 Document Reviewed: 08/19/2021 [employer] Patient Education 2022 [employer] 12/21/2022 14:54:11 Ankle Sprain, Yrbo-ci-Kgyd Ankle Sprain An ankle sprain is a [...] blue. Managing pain, stiffness, and swelling Take nrwm-ncz-uutgljf and prescription medicines only as told by [...] provider. Document Revised: 08/19/2021 Document Reviewed: 08/19/2021 [employer] Patient Education 2022 [employer]. Follow Up Care 12/21/2022 13:24:37 With:[facility] Address: [address] [place], [place] [id number] Business (1) When:12/24/2022 14:27:12 Comments:Follow-up with your primary care provider in 3 to 5 days. If symptoms worsen, do not improve, or new symptoms arise please report back to emergency department for further evaluation. [facility]06-14-2023 Evaluation + Plan noteExtracted from: Title:ED Note Author:Loyd Lange PA-C te:12/21/22 Left ankle sprain (S93.402A: Sprain of unspecified ligament of left ankle, initial encounter) Sprain of left foot (S93.602A: Unspecified sprain of left foot, initial encounter) Orders: Crutches XR Ankle 3+ Views Left XR Foot 3+ Views Left [facility]02-28-2023 Hospital Discharge instructions Patient Education 09/05/2022 22:58:39 Hives, Ugss-hu-Pzti Hives Hives are itchy, red, swollen areas [...] woman. Being allergic to foods such as: ?[place] fruits. ?Milk. ?Eggs. ?Peanuts. ?Tree nuts. ?Shellfish. [...] instructions at home: Medicines Take or apply bxdf-qlf-qthywxk and prescription medicines only as told by [...] what causes your hives. Take and apply bvfx-qja-lgxjaed and prescription medicines only as told by your doctor. Keep all follow-up visits as told by your doctor. This is important. This information is not intended to replace advice given to you by your health care provider. Make sure you discuss any questions you have with your health care provider. Document Released: 04/04/2009 Document Revised: 01/09/2019 Document Reviewed: 01/09/2019 [employer] Patient Education 2020 [employer]Cat. Follow Up Care 09/05/2022 21:02:01 With:KATJA MCGINNIS Address: [address] [place], [place] [address] [address]- Business (1) When:09/08/2022 21:23:21 Comments:Follow-up for further evaluation of your urticarial rashes and reactions. With:Mark Chalmette Address: [address] [place] [address]- Business (1) When:Within 3 Day(s) [facility]02-27-2023 Evaluation + Plan noteExtracted from: Title:ED Note Author:Nazario CAO, Loyd Matute te:09/05/22 Allergic reaction (T78.40XA: Allergy, unspecified, initial encounter) Urticaria (L50.9: Urticaria, unspecified) Orders: diphenhydrAMINE, 25 mg = 0.5 mL, Injection, IV Push, Once, Stop date 09/05/22 21:11:00 EST, STAT, Start date 09/05/22 21:11:00 EST, 09/05/22 21:11:00 EST epinephrine, 0.3 mg, IntraMuscular, Once, # 1 kit(s), Refills(s) 1, Pharmacy: [facility], 160, cm, 09/05/22 [...] day(s), # 21 tab(s), Refills(s) 0, Pharmacy: [facility], 160, cm, 09/05/22 21:08:00 EST, Height/Length Dosing, 85.6, kg, 09/05/22 21:08:00 EST, Weight Dosing Sodium Chloride 0.9% intravenous solution, 1,000 mL, Soln-IV, IV, Once, Stop date 09/05/22 21:11:00 EST, STAT, Start date 09/05/22 21:11:00 EST, mL/hr, Infuse over 61, minute(s) [facility]10-06-2022 Hospital Discharge instructions Patient Education 04/14/2022 19:42:50 [...] symptoms? Symptoms of anaphylaxis may include: Feeling engineering drawings checker the face (flushed). This may include redness. [...] you have hives or rash: ?Use an wygi-asn-msvfnko antihistamine as told by your health care provider. ?Apply cold, wet cloths (cold compresses) to your skin or take baths or showers in cool water. Avoid hot water. Take moqn-aop-gkcjgrz and prescription medicines only as told by your health care provider. Tell all your health care providers that you have an allergy. Keep all follow-up visits as told by your health care provider. This is important. How is this prevented? Avoid allergens that have caused an anaphylactic reaction in the past. When you are at a restaurant, tell your traffic observer that you have an allergy. If you are not sure whether a menu item contains an ingredient that you are allergic to, ask your traffic observer. Where to find more information [employer] [employer]: aaaai.org [employer] [employer]: healthychildren.org Get help right [...] 06/26/2006 Document Revised: 10/18/2018 Document Reviewed: 10/18/2018 [employer] Patient Education 2020 [employer] Follow Up Care 04/14/2022 14:45:49 With:Mark Pitts Address: [address] [place] [address] Business (1) When:04/17/2022 18:33:05 [facility]05-13-2022 Hospital Discharge instructions Patient Education 11/19/2021 19:08:27 [...] have symptoms of anaphylaxis, such as: Feeling engineering drawings checker the face (flushed). This may include redness. [...] you are at a restaurant, tell your traffic observer that you have an allergy. If you are unsure whether a meal has an ingredient that you are allergic to, ask your traffic observer. Take alop-cqs-cxttkql and prescription medicines only as told by [...] 06/23/2001 Document Revised: 06/26/2018 Document Reviewed: 06/26/2018 [employer] Patient Education 2020 [employer] Follow Up Care 11/19/2021 15:20:25 With:Mark Chalmette Address: [address] [place] [phone]- Business (1) When:11/22/2021 18:25:35 [facility]12-28-2021 NotePROCEDURE: CTA CHEST WO W CON REASON [...] Electronically authenticated by: TULIO VILLASEÑOR Date: 2021-07-05 23:35[facility] No data available for this section [facility] Diagnosis Third trimester state, incidental Diabetes mellitus screening Screening for diabetes mellitus BV (bacterial vaginosis) Unspecified vaginitis and vulvovaginitis Nausea Nausea alone documented in this encounter [facility] No data available for this section [facility] Summary Purpose Family History No Family History Records FoundNo Family History Records FoundNo Family History Records Found Advance Directives No Advanced Directives Records FoundNo Advanced Directives Records FoundNo Advanced Directives Records Found Additional Source Comments INFORMATION SOURCE (unrecogn ized section and content) DATE CREATED AUTHOR 01/17/2022 [facility] DATE CREATED AUTHOR AUTHOR'S ORGANIZ ATION 02/26/2023 [facility] DATE CREATED AUTHOR AUTHOR'S ORGANIZ ATION 09/20/2023 [facility] EPIC Patient Care team informatio n (unrecognized section and content) [employer] Work[employer] Relationship Specialty Start Date End Date Mark Pitts MD [address] [facility] [place] [address] PCP - General Family Medicine 04/14/23 [employer] Worker Relationship Specialty Start Date End Date Mark Pitts MD [address] [facility] [place] [address] PCP - General Family Medicine 04/14/23 Reason [...] BE BASED ON THE PRIMARY CLINICAL RECORDS. [employer] provides no warranty or guarantee of the accuracy or completeness of information in this document.
== END 2023-09-25 11:29 | disposition home or self-care (01) ==
LOC: LAB 11:30
PROVIDERS: Visit Provider Obstetrics & Gynecology
DX: O99.019 Anemia complicating pregnancy, unspecified trimester (principal)
CPT/HCPCS: 36415; 85025

== ENCOUNTER 2023-10-03 08:23 | Outpatient (OUT) | payer OTHER, SELFPAY ==
--- OUTSIDE RECORDS SUMMARY | 2023-10-03 08:25 | XMS_ITS | CCD ---
Author Organization [facility] Care Team Providers Care Crisis Worker Name Role Phone Mark Pitts Primary Care Physician [phone] PHILLIP LORA Admitting Unavailable HEBER, DR PRABHU Cervantes Consulting Unavailable PHILLIP LORA Attending Unavailable FLORENCIA, DR ROCK Primary Care Unavailable HARJEET, JOHN PAUL DUMAS Consulting Unavailable KASI, TULIO Consulting Unavailable LIANNA MCKEON Consulting Unavailable GREYSON, DR BROWNE Attending Unavailable GREYSON, DR BROWNE Consulting Unavailable FLORENCIA, DR ROCK Primary Care Unavailable GREYSON, DR BROWNE Admitting Unavailable Hubert, Saúl Attending Unavailable Hubert, Saúl Attending Unavailable Khadar, Charlie Hood Attending Unavailable Peggy, Javier Attending Unavailable Peggy, Javier Attending Unavailable Khadar, Charlie Hood Attending Unavailable HAIDER, John Attending Unavailable John MALONEY Attending Unavailable MONICA, Willa eJan Attending Unavailable MONICA, Willa Jean Admitting Unavailable Quita Clark Attending Unavailable Solo Kimble Attending Unavailable Mark Pitts MD Primary Care Provider BRODERICK NICKERSON Attending Unavailable BHUMIKA MO Attending Unavailable BHUMIKA MO Attending Unavailable BRODERICK NICKERSON Attending Unavailable BHUMIKA MO Attending Unavailable Allergies Allergy Classification Reported Allergen(s) Allergy Type Date of Onset Reaction(s) Facility (11 sources) Codeine; Translations: [codeine] Drug Allergy 3 [facility] (8 sources) Penicillin; Translations: [penicillin] Drug Allergy [facility] (1 source) Clindamycin Drug Allergy [facility] (1 source) Codeine Drug Allergy 4 [facility] (1 source) Penicillins Drug allergy (disorder) 4 [facility] (10 sources) Ibuprofen; Translations: [ibuprofen] Drug Allergy 3 Anaphylaxis (disorder), [facility] (6 sources) Amoxicillin; Translations: [amoxicillin] Drug Allergy 3 [facility] (3 sources) Penicillins Propensity to adverse reactions 3 [facility] Medications Current Medications Medication Drug Class(es) Dates Sig (Normalized) Sig (Original) Albuterol (Eqv-ProAir HFA) 90 mcg/inh inhalation aerosol (1 source) Start: 02-26-2023 End: 03-05-2023 take 2 puff(s) by inhalation every four hours Albuterol (Eqv-ProAir HFA) 90 mcg/inh inhalation aerosol 2 puff(s), Inhalation, q4hr for 7 day(s), 8.5 gm, Refill(s) 0, [facility], 160, cm, 02/26/23 15:59:00 EDT, Height/Length Dosing, 85.6, kg, 02/26/23 15:59:00 EDT, Weight Dosing Start Date: 02/26/23 Stop Date: 03/05/23 Status: Ordered brompheniramine maleate 0.4 mg/ml / dextromethorphan hydrobromide 2 mg/ml / pseudoephedrine hydrochloride 6 mg/ml oral solution (9 sources) alpha-Adrenergic Agonist, Uncompetitive N-heevqu-G-aspartat e Receptor Antagonist, Sigma-1 Agonist Start: 02-27-2023 [...] for cold symptoms, 200 mL, Refill(s) 0, [facility] 1985, 160, cm, 02/26/23 15:59:00 EDT, Height/Length Dosing, 85.6, kg, 02/26/23 15:59:00 EDT, Weight Dosing Start Date: 02/26/23 Status: Ordered ciprofloxacin 3 mg/ml / dexamethasone 1 mg/ml otic suspension (2 sources) Corticosteroid, Quinolone Antimicrobial Start: 12-30-2022 End: 01-06-2023 Ciprodex 0.3%-0.1% Susp-Otic 5 drop(s), Otic, BID for 7 day(s), 7.5 mL, Refill(s) 0, [facility] 1986, 160, cm, 12/30/22 13:14:00 EDT, Height/Length Dosing, 85.6, kg, 12/30/22 13:14:00 EDT, Weight Dosing Start Date: 12/30/22 Stop Date: 01/06/23 Status: Ordered [id number] 0.3 ml EPINEPHrine 1 mg/ml auto-injector (9 [...] inventory, # 1 kit(s), Refills(s) 0, Pharmacy: [facility] 1985, 160, cm, 04/14/22 14:56:00 EDT, [...] day(s), # 7 tab(s), Refills(s) 0, Pharmacy: [facility] 1985, 160, cm, 04/14/22 14:56:00 EDT, Height/Length Dosing, 83, kg, 04/14/22 14:56:00 EDT, Weight Dosing Start Date: 04/14/22 Stop Date: 04/21/22 Status: Ordered Start: 11-19-2021 End: 05-20-2022 take 1 tablet by mouth once daily at bedtime Pepcid 40 mg Tab 40 mg = 1 tab(s), Oral, Once a day (at bedtime), X 7 day(s), # 7 tab(s), Refills(s) 0, Pharmacy: [facility] 1985, 160, cm, 11/19/21 15:30:00 EDT, [...] l route once daily Flonase 0.05 mg/inh Blissfield 2 spray(s), Nasal, Daily, 16 gram, Refill(s) 0, each nostril, [facility] 1985, 160, cm, 12/31/22 10:20:00 EDT, [...] day(s), # 14 tab(s), Refills(s) 0, Pharmacy: [facility] 1985, 160, cm, 02/26/23 15:59:00 EDT, [...] day(s), # 15 tab(s), Refills(s) 0, Pharmacy: [facility] 1986, 160, cm, 02/26/23 15:59:00 EDT, Height/Length Dosing, 85.6, kg, 02/26/23 15:59:00 EDT, Weight Dosing Start Date: 02/26/23 Stop Date: 03/03/23 Status: Ordered Start: 09-05-2022 End: 09-12-2022 take 3 tablets by mouth once daily predniSONE 20 mg Tab 60 mg = 3 tab(s), Oral, Daily, X 7 day(s), # 21 tab(s), Refills(s) 0, Pharmacy: [facility] 1986, 160, cm, 09/05/22 21:08:00 EST, Height/Length Dosing, 85.6, kg, 09/05/22 21:08:00 EST, Weight Dosing Start Date: 09/05/22 Stop Date: 09/12/22 Status: Ordered Start: 04-14-2022 End: 04-21-2022 take 3 tablets by mouth once daily predniSONE 20 mg Tab 60 mg = 3 tab(s), Oral, Daily, X 7 day(s), # 21 tab(s), Refills(s) 0, Pharmacy: [facility] 1985, 160, cm, 04/14/22 14:56:00 EDT, Height/Length Dosing, 83, kg, 04/14/22 14:56:00 EDT, Weight Dosing Start Date: 04/14/22 Stop Date: 04/21/22 Status: Ordered Start: 11-19-2021 End: 11-26-2021 take 3 tablets by mouth once daily predniSONE 20 mg Tab 60 mg = 3 tab(s), Oral, Daily, X 7 day(s), # 21 tab(s), Refills(s) 0, Pharmacy: [facility] 1985, 160, cm, 11/19/21 15:30:00 EDT, [...] q4hr, # 14 tab(s), Refills(s) 0, Pharmacy: [facility] 1985 Start Date: 03/21/19 Status: Ordered traMADol hydrochloride 50 mg oral tablet (1 source) Opioid Agonist Start: 12-31-2022 End: 01-03-2023 take 1 tablet by mouth every six hours as needed for pain traMADOL 50 mg Tab 50 mg = 1 tab(s), Oral, q6hr, PRN for pain, X 3 day(s), # 12 tab(s), Refills(s) 0, Pharmacy: [facility] 1985, 160, cm, 12/31/22 10:20:00 EDT, Height/Length Dosing, 85.6, kg, 12/31/22 10:20:00 EDT, Weight Dosing Start Date: 12/31/22 Stop Date: 01/03/23 Status: Ordered Zofran ODT 4 mg Tab-Dis (14 sources) Start: 08-05-2019 take 1 tablet by mouth three times daily Zofran ODT 4 mg Tab-Dis 4 mg = 1 tab(s), Oral, TID, # 15 tab(s), Refills(s) 0, Pharmacy: [facility] 1985, 160, cm, 08/05/19 9:28:00 EST, Height/Length Measured, 86.5, kg, 08/05/19 9:28:00 EST, Weight Measured Start Date: 08/05/19 Status: Ordered Start: 03-21-2019 take 1 tablet by savannah th every six hours Zofran ODT 4 mg Tab-Dis 4 mg = 1 tab(s), Oral, q6hr, # 10 tab(s), Refills(s) 0, Pharmacy: [facility] 1985 Start Date: 03/21/19 Status: Ordered [...] te Episodic/Chronic Other aftercare (1 source) Other snf (current) drug therapy; 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] Onset: 07-07-2021 Episodic Other [...] [Ratio] 15.0 % 11.0 - 15.0 % [facility] Hematocrit (Bld) [Volume fraction] 31.4 % Low 36.0 - 48.0 % [facility] Hemoglobin (Bld) [Mass/Vol] 9.7 g/dL Low 12.0 - 16.0 g/dL [facility] IMMATURE GRANULOCYTES ABS AUTO 0.05 High [facility] Immature granulocytes/100 WBC (Bld) 0.4 % 0.0 - 0.5 % [facility] Interpretation and review of laboratory results Abnormal [facility] LYMPHOCYTES ABSOLUTE AUTO 2.6 [facility] Lymphocytes/100 WBC (Bld) 19.4 % Low 20.5 - 60.0 % [facility] MCH (RBC) [Entitic mass] 25.3 pg Low 26.7 - 34.0 pg [facility] MCHC (RBC) [Mass/Vol] 30.9 g/dL 29.9 - 35.2 g/dL [facility] MCV (RBC) [Entitic vol] 82.0 fL 81.0 - 99.0 fL [facility] MONOCYTES ABSOLUTE AUTO 0.3 [facility] Monocytes/100 WBC (Bld) 2.6 % 1.7 - 12.0 % [facility] NEUTROPHILS ABSOLUTE AUTO 10.2 High [facility] Neutrophils/100 WBC (Bld) 76.7 % High 43.0 - 75.0 % [facility] Platelet mean volume (Bld) [Entitic vol] 10.6 fL 9.5 - 13.5 fL [facility] TBH EO # 0.1 [facility] PLT 176 [facility] RBC 3.83 Low [facility] WBC 13.3 High [facility] Urinalysis macro (dipstick) panel (U)on 08-21-2023 Bilirubin, UA Negative Negative - 4(70) +++ mg/dL [facility] Blood, UA Negative Negative - 50 Juan Alberto/mcL [facility] Clarity, UA Clear [facility] Color, UA Yellow [facility] Glucose, UA Negative Negative - 1999(110) ++++ mg/dL [facility] Interpretation and review of laboratory results Normal [facility] Ketones, UA Negative Negative - 160(16) ++++ mg/dL [facility] Leukocytes, UA Negative Negative - 500+++ Geovani/mcL [facility] Nitrite, UA Negative Negative - Positive [facility] pH, UA 7.0 5 - 9 [facility] Protein, UA Negative Negative - 1999(20) ++++ mg/dL [facility] Spec Grav, UA 1.015 1 - 1.03 [facility] Urobilinogen, UA 0.2 0.2 - 12 mg/dL [facility] Cytology Cervical or vaginal smear or scraping studyon 06-15-2023 [facility] Consent for Treatmenton 02-08 Consent for Treatment [id number]#1 .00CD:127 Normal [facility] Discharge Instructionson Discharge Instructions [id number]# 1.00CD:127 Normal [facility] ED Clinical Summaryon 2022 ED Clinical Summary [place] [id number] ED Clinical Summary Person Information Name: RJ ELENA Calista/[facility] Age: 32 Years : 1990 Sex: Female Language: Hebrew PCP: Mark Pitts DO Marital Status: Single Phone: [phone] Visit Id: Visit Reason: Shortness of breath; [...] 02/26/2023 18:10:02 02/26/2023 18:10:02 02/26/2023 18:10:02 ADDRESS: [address] [place] [address] [address] [place] [id number] PHYS DOC NOTES: MEDICAL INFORMATION: Prescriptions Given: New Medications [facility], [address] [facility] [address] [facility] [address] [place] [id number], [phone] albuterol (Albuterol (Eqv-ProAir HFA) 90 mcg/inh inhalation aerosol) 2 Puffs Inhalation every 4 hours for 7 Days. Refills: 0. guaifenesin (Mucinex 600 mg Tab-ER) 1 Tablets By Mouth every 12 hours for 7 Days. Refills: 0. Medications to Continue Taking That Have Changed [facility] 1986, [address] [place] [id number], [phone] START: brompheniramine/dextr omethorphan/PSE (Bromfed DM oral syrup) [...] Refills: 0. fluticasone nasal (Flonase 0.05 mg/inh Blissfield) 2 Sprays Nasal Inhalation every day. each [...] Follow up: With: Address: When: Mark Pitts [address] [place] [phone] Business (1) In 3 days 03/01/2023 Comments: [...] symptoms. DIAGNOSIS: Bronchitis; Upper respiratory infection Normal [facility] ED Note-Physicianon 02-27-20 ED Note-Physician Basic Information [...] and Complexity of Problems Differential Diagnosis: [] [facility] Data External documents reviewed: [] My EKG [...] or dispensed an antibiotic. [DOES NOT SATISFY [facility] PERFORMANCE] Shared decision making: [] Code status: [] Assessment/Plan Bronchitis (J40: Bronchitis, not specified as acute or chronic) Upper respiratory infection (J06.9: Acute upper respiratory infection, unspecified) Orders: albuterol, 2 puff(s), Inhalation, q4hr for 7 day(s), 8.5 gm, Refill(s) 0, [facility] 1985, 160, cm, 02/26/23 15:59:00 EDT, Height/Length Dosing, 85.6, kg, 02/26/23 15:59:00 EDT, Weight Dosing brompheniramine/dextr omethorphan/PSE, 5 mL, Oral, QID for cold symptoms, 200 mL, Refill(s) 0, [facility] 1985, 160, cm, 02/26/23 15:59:00 EDT, Height/Length Dosing, 85.6, kg, 02/26/23 15:59:00 EDT, Weight Dosing guaifenesin, 600 mg = 1 tab(s), Oral, q12hr, X 7 day(s), # 14 tab(s), Refills(s) 0, Pharmacy: [facility] 1985, 160, cm, 02/26/23 15:59:00 EDT, Height/Length Dosing, 85.6, kg, 02/26/23 15:59:00 EDT, Weight Dosing predniSONE, 60 mg = 3 tab(s), Oral, Daily, X 5 day(s), # 15 tab(s), Refills(s) 0, Pharmacy: [facility] (more content not included)... Normal [facility] Comment on above: Result Comment: Elec tronically [...] Follow these instructions at home: ? Take yscu-qpy-fgmxnwa and prescription medicines only as told by [...] and water are not available, use hand admitting interviewer. ? Avoid contact with people who have [...] is easier to cough up. ? Take owdd-iol-utbioqm and prescription medicin (more content not included)... Normal [facility] ED Patient Summaryon 023 ED Patient Summary [address] [address] Patient Discharge Instructions Person Information Name: RJ ELENA Age: 32 Years Arrival Date: 02/26/2023 15:53:15 Discharge Diagnosis: Bronchitis; Upper respiratory infection Primary Care Physician: Mark Pitts DO Provider Information Primary Provider: Charlie Rubalcava DO Advanced Records Management Specialist:Juan Ott PA-C The exam and treatment you received in the Emergency Department were for an urgent problem and are not intended as complete care. It is important that you follow up with a doctor, nurse practitioner, or physician?s field assistant for ongoing care. If your symptoms [...] Follow-up Instructions: With: Address: When: Mark Pitts [address] [place] [phone] [facility] (1) In 3 days 03/01/2023 Comments: Call [...] opioids can be used to help relieve nhssgpsi-lw-owuhfm pain and are often prescribed following a [...] and family) (more content not included)... Normal [facility] MICRO OTHER TESTSOrdered By: Juvenal Macario on 02-26-2023 Rapid COV Int NEG Ctl Pass (02/26/23 4:45 PM) Normal [facility] Man [place]ero Rapid COV Int POS Ctl Pass (02/26/23 4:45 PM) Normal [facility] Sero SARS-CoV+SARS-CoV-2 (COVID-19) Ag IA.rapid Ql (Resp) Not Detected (02/26/23 4:45 PM) Normal Not Detected [facility] Sero Prescriptions/Work Noteson 0 02-26-2023 Prescriptions/Work Notes [id number]# 1.00CD:127 Normal [facility] Rapid COVID Antigen ([facility])on 02-26-2023 Rapid COV Int NEG Ctl Pass Normal [facility] Comment on above: Performed By: #### 2 [id number] ####[facility] [address] [place] [address] Rapid COV Int POS Ctl Pass Normal [facility] Comment on above: Performed By: #### 2 [id number] ####[facility] [address] [place] [address] SARS-CoV+SARS-CoV-2 (COVID-19) Ag IA.rapid Ql (Resp) Not detected Normal Not Detected [facility] Comment on above: Result Comment: The [employer]? System for Rapid Detection of SARS-CoV-2 is [...] other viruses or pathogens; and, in the [facility], this test is only authorized for the duration of the declaration that circumstances exist justifying the authorization of emergency use of in vitro diagnostics for detection and/or diagnosis of the virus that causes COVID-19 under Section 564(b)(1) of the Act, 21 U.S.C. ? 360bbb-3(b)(1), unless the authorization is terminated or revoked sooner. Performed By: #### 2 [id number] ####[place] [address] [place] [address] ADMITTED TO INTENSIVE CARE UNIT FOR CONDITION OF INTEREST:FIND:PT: NO Normal [facility] Comment on above: Performed By: #### 2 [id number] ####[place] [address] [place] [address] EMPLOYED IN A HEALTHCARE SETTING:FIND:PT: NO [facility] Comment on above: Performed By: #### 2 [id number] ####[place] [address] [place] [address] FIRST TEST FOR CONDITION OF INTEREST:FIND:PT: Unknown Normal [facility] Comment on above: Performed By: #### 2 [id number] ####[place] [address] [place] [address] HAS SYMPTOMS RELATED TO CONDITION OF INTEREST:FIND:PT: YES Normal [facility] Comment on above: Performed By: #### 2 [id number] ####[place] [address] [place] [address] HOSPITALIZED FOR CONDITION OF INTEREST:FIND:PT: NO Normal [facility] Comment on above: Performed By: #### 2 [id number] ####[place] [address] STATUS:FIND:PT: NO Normal [facility] Comment on above: Performed By: #### 2 [id number] ####[place] [address] RESIDES IN A CRITICAL ACCESS HOSPITAL CARE SETTING:FIND:PT: NO Normal [facility] Comment on above: Performed By: #### 2 [id number] ####[place] [address] XR Chest 2 Viewson 3 XR Chest [...] mGy = na DAP = na Normal [facility] In office Testingon 01-31-20 23 In office Testing [id number]#1 .00CD:127 Normal [facility] Registrationon 01-30-2023 Registration [id number]# 1.00CD:127 [facility] ED Note-Physicianon 01-10-20 ED Note-Physician [...] and Complexity of Problems Differential Diagnosis: [] [facility] Data External documents reviewed: [] My EKG [...] Daily, 16 gram, Refill(s) 0, each nostril, [facility] 1985, 160, cm, 12/31/22 10:20:00 EDT, Height/Length Dosing, 85.6, kg, 12/31/22 10:20:00 EDT, Weight Dosing tramadol, 50 mg = 1 tab(s), Oral, q6hr, PRN for pain, X 3 day(s), # 12 tab(s), Refills(s) 0, Pharmacy: [facility] 1985, 160, cm, 12/31/22 10:20:00 EDT, Height/Length Dosing, 85.6, kg, 12/31/22 10:20:00 EDT, Weight Dosing Disposition Plan Patient Discharge Condition Stable Discharge Disposition To home Discharge Prescription List Prescriptions Ciprodex 0.3%-0.1% Susp-Otic, 5 drop(s), Otic, BID Flonase 0.05 mg/inh Blissfield, 2 spray(s), Nasal, Daily traMADOL 50 mg Tab, 50 mg= 1 tab(s), Oral, q6hr, PRN Follow-up With When Contact Information Mark Pitts In 3 days 01/03/2023 EDT [address] [place] [address]- Business (1) Additional Instructions: Follow-up with your primary care provider in 3 to 5 days. If symptoms worsen, do not improve, or new symptoms arise please report back to emergency department for further evaluation. Patient Education Otitis Externa Attestation Patient seen and evaluated by the physician field assistant. Attending physician was present in the emergency department and supervised care. This visit was performed by both the physician and an APC. I performed all aspects of the MDM as documented. This report was transcribed u (more content not included)... Normal [facility] Comment on above: Result Comment: Elec tronically Signed By: Loyd Lange PA-C\.br\Date and Time Signed: 12/31/22 11:53 EDT\.br\Electronically Co-Signed By: Javier Woods DO\.br\Date and Time Co-Signed: 01/09/23 07:15 EDT Consent for Treatmenton 12-09 Consent for Treatment [id number] .00CD:127 Normal [facility] Discharge Instructionson Discharge Instructions [id number]# 1.00CD:127 Normal [facility] ED Clinical Summaryon 2022 ED Clinical Summary [address] [address] ED Clinical Summary Person Information Name: RJ ELENA [place] Age: 32 Years : 1990 Sex: Female Language: Hebrew PCP: Mark Pitts DO Marital Status: Single Phone: [phone] Visit Id: Visit Reason: Ear pain; EAR [...] 12/31/2022 10:41:35 12/31/2022 10:41:35 12/31/2022 10:41:35 ADDRESS: [address] [place] [id number] PHYS DOC NOTES: MEDICAL INFORMATION: Prescriptions Given: New Medications [facility], [address] [facility] [place], [place] [id number], [phone] fluticasone nasal (Flonase 0.05 mg/inh Blissfield) 2 Sprays Nasal Inhalation every day. each [...] Otitis Externa Follow up: With: Address: When: [address] [address] [facility] (1) In 3 days 01/03/2023 Comments: Follow-up with your primary care provider in 3 to 5 days. If symptoms worsen, do not improve, or new symptoms arise please report back to emergency department for further evaluation. DIAGNOSIS: Bilateral otitis externa Normal [facility] ED Patient Education Noteon 12-31-2022 ED Patient [...] you start to feel better. ? Take loti-uzl-ybsngdw and prescription medicines only as told by [...] Reviewed: 09/08/2021 Elsevier Patient Education ? 2022 [employer] Normal [facility] ED Patient Summaryon 023 ED Patient Summary [place] [address] Patient Discharge Instructions Person Information Name: RJ ELENA Age: 32 Years Arrival Date: 12/31/2022 10:01:25 Discharge Diagnosis: Bilateral otitis externa Primary Care Physician: Mark Pitts DO Provider Information Primary Provider: Javier Woods DO Advanced Records Management Specialist:None The exam and treatment you received in the Emergency Department were for an urgent problem and are not intended as complete care. It is important that you follow up with a doctor, nurse practitioner, or physician?s field assistant for ongoing care. If your symptoms become worse or you do not improve as expected and you are unable to reach your usual health care provider, you should return to the Emergency Department. We are available 24 hours a day. DANYELLE ELENARADHA Nicky has been given the following list of patient education materials, prescriptions and follow-up instructions: Follow-up Instructions: With: Address: When: Mark Pitts [address] [place] [phone] Business (1) In 3 days 01/03/2023 Comments: [...] opioids can be used to help relieve jfndxitu-nj-vcezab pain and are often prescribed following a [...] and overdose. ? (more content not included)... [facility] Consent for Treatmenton 12-09 Consent for Treatment [id number] .00CD:127 [facility] Discharge Instructionson Discharge Instructions [id number]# 1.00CD:127 [facility] ED Clinical Summaryon 2022 ED Clinical Summary [place] [id number] ED Clinical Summary Person Information Name: RJ ELENA [place] Age: 32 Years : 1990 Sex: Female Language: Hebrew PCP: Mark Pitts DO Marital Status: Single Phone: [phone] Visit Id: Visit Reason: Ear pain; DOUBLE [...] 12/30/2022 13:59:40 12/30/2022 13:59:40 12/30/2022 13:59:40 ADDRESS: [address] [place] [address] [address] [facility] [id number] PHYS DOC NOTES: MEDICAL INFORMATION: Prescriptions Given: New Medications [facility], [address] [place], [place] [id number], [phone] ciprofloxacin-dexamet hasone otic (Ciprodex 0.3%-0.1% Susp-Otic) 5 [...] INFORMATION: Instructions: Follow up: With: Address: When: [place] [address] Business (1) In 3 days DIAGNOSIS: Otitis externa, left Normal [facility] ED Note-Physicianon 12-31-19 ED Note-Physician Basic Information [...] for 7 day(s), 7.5 mL, Refill(s) 0, [facility] 1985, 160, cm, 12/30/22 13:14:00 EDT, Height/Length Dosing, 85.6, kg, 12/30/22 13:14:00 EDT, Weight Dosing Disposition Plan Discharge Prescription List Prescriptions Ciprodex 0.3%-0.1% Susp-Otic, 5 drop(s), Otic, BID Follow-up With When Contact Information Mark Pitts In 3 days [address] [place] [address]- [facility] (1) Additional Instructions: Problem List/Past Medical History [...] Diagnostic Results No qualifying data available. Normal [facility] Comment on above: Result Comment: Elec tronically Signed By: Javier Woods DO\.br\Date and Time Signed: 12/30/22 13:54 EDT ED Patient Education Noteon 12-30-2022 ED Patient Education Note Normal [facility] ED Patient Summaryon 023 ED Patient Summary [place] [id number] Patient Discharge Instructions Person Information Name: RJ ELENA Age: 32 Years Arrival Date: 12/30/2022 13:06:22 Discharge Diagnosis: Otitis externa, left Primary Care Physician: Mark Pitts DO Provider Information Primary Provider: Javier Woods DO Advanced Records Management Specialist:None The exam and treatment you received in the Emergency Department were for an urgent problem and are not intended as complete care. It is important that you follow up with a doctor, nurse practitioner, or physician?s field assistant for ongoing care. If your symptoms become worse or you do not improve as expected and you are unable to reach your usual health care provider, you should return to the Emergency Department. We are available 24 hours a day. ULICES SHABANACLARISSARADHA Nicky has been given the following list of patient education materials, prescriptions and follow-up instructions: Follow-up Instructions: With: Address: When: Mark Pitts [address] [place] [id number] Business (1) In 3 days In the event that this physician does not participate in your insurance network, please consult with your insurance company to find a nearby participating provider. Patient Education Materials: A MESSAGE TO ALL PATIENTS REGARDING OPIOIDS PRESCRIPTION OPIOIDS: WHAT YOU NEED TO KNOW Prescription opioids can be used to help relieve nahpexrs-ex-ihtact pain and are often prescribed following a [...] struggling with addiction, tell your health care tech and ask for guidance or call [facility]?S National Helpline at 3-942-302-ILMU. v Source: [place] Department of Health and Human Services/Adeline (more content not included)... [facility] Registrationon 12-27-2022 Registration [id number]#1. 00CD:127 [facility] Consenton 12-26-2022 Consent [id number]# 1.00CD:127 [facility] Registrationon 12-26-2022 Registration [id number]# 1.00CD:127 [facility] Consent for Treatmenton 12-08 Consent for Treatment [id number]#1 .00CD:127 [facility] Discharge Instructionson Discharge Instructions [id number]#1 .00CD:127 [facility] ED Clinical Summaryon 2022 ED Clinical Summary [place] [id number] ED Clinical Summary Person Information Name: RJ ELENA [facility] Age: 32 Years : 1990 Sex: Female Language: Hebrew PCP: Mark Pitts DO Marital Status: Single Phone: [phone] Visit Id: Visit Reason: Foot pain-swelling; ROLLED [...] 12/21/2022 14:54:11 12/21/2022 14:54:11 12/21/2022 14:54:11 ADDRESS: [address] [place] [address] [address] [facility] [id number] PHYS DOC NOTES: MEDICAL INFORMATION: Prescriptions Given: [...] Ankle Sprain, Phase I Rehab; Ankle Sprain, Dwnx-hm-Aajg Follow up: With: Address: When: [address] [address] Business (1) In 3 days 12/24/2022 Comments: Follow-up with your primary care provider in 3 to 5 days. If symptoms worsen, do not improve, or new symptoms arise please report back to emergency department for further evaluation. DIAGNOSIS: Left ankle sprain; Sprain of left foot [facility] ED Note-Physicianon 12-22-19 ED Note-Physician Basic Information [...] and Complexity of Problems Differential Diagnosis: [] [facility] Data External documents reviewed: [] My EKG [...] Pitts In 3 days 12/24/2022 EDT [address] [place] [address] Business (1) Additional Instructions: Follow-up with your primary care provider in 3 to 5 days. If symptoms worsen, do not improve, or new symptoms arise please report back to emergency department for further evaluation. Patient Education Foot Sprain Elastic Bandage and RICE Therapy Ankle Sprain, Phase II Rehab Ankle Sprain, Phase I Rehab Ankle Sprain, Tsvb-ko-Nhjn Attestation Patient seen and evaluated by the physician field assistant. Attending physician was present in the emergency department and supervised care. This visit was performed by both the physician and an APC. I performed all aspects of the MDM as documented. This report was transcribed using voice recognition software. Every effort was made to ensure accuracy, however, inadvertent (more content not included)... [facility] Comment on above: Result Comment: Elec tronically [...] on your foot. General instructions ? Take iatd-vvi-jyedgvr and prescription medicines only as told by your health care provider. ? When you can walk without pain, wear supportive shoes t (more content not included)... [facility] ED Patient Summaryon 023 ED Patient Summary [address] [address] Patient Discharge Instructions Person Information Name: RJ ELENA Age: 32 Years Arrival Date: 12/21/2022 13:23:04 Discharge Diagnosis: Left ankle sprain; Sprain of left foot Primary Care Physician: Mark Pitts DO Provider Information Primary Provider: Charlie Rubalcava DO Advanced Records Management Specialist:None The exam and treatment you received in the Emergency Department were for an urgent problem and are not intended as complete care. It is important that you follow up with a doctor, nurse practitioner, or physician?s field assistant for ongoing care. If your symptoms [...] Follow-up Instructions: With: Address: When: Mark Pitts [address] [place] [address] [employer] (1) In 3 days 12/24/2022 Comments: Follow-up [...] Ankle Sprain, Phase I Rehab; Ankle Sprain, Uozy-tc-Oibc A MESSAGE TO ALL PATIENTS REGARDING OPIOIDS PRESCRIPTION OPIOIDS: WHAT YOU NEED TO KNOW Prescription opioids can be used to help relieve ekybefdg-ju-adpwly pain and are often prescribed following a [...] Drug Administrati (more content not included)... [facility] XR Ankle 3+ Views Lefton XR Ankle [...] mGy = . DAP = . [facility] XR Foot 3+ Views Lefton 12-08 XR [...] mGy = . DAP = . [facility] Registrationon 12-16-2022 Registration [id number]# 1.00CD:127 [facility] Consenton 12-15-2022 Consent [id number]# 1.00CD:127 [facility] Coding Summary.on 09-06-2022 Coding Summary. CD:[id number] G h0bWw+PGhlYWQ+JU2UHLC iH31auRAzyT5HG7rPKA9Y USDCEIIQHK2LLG4lsKD5T OueG4VggkBs YmtxdMUxDU24GOr1QLE6q FdrXDvcaL9txOKyO5y3Yu VmTL95eB50RXuoBPGmAnX 3LjZpbjsgbWFy B9isAmIpxUUmHsu+PHRhY mxlIHdpZHRoPScxMDAlJy YoxHgoIS7dFt2qGWNeCHL vbGxhcHNlOiBj a5trUEJiRXmfPU4dfJiiW 3NigJX5UEPmi2b0Au31zZ I+NTHnSDG5zDijQEpvu51 3NlRrb5heKNY3 fTUiPTwqDHK5M26xr2G4K PTtURMxHMR0cWB4nL9jqM cwkfdzS1GdzGQyLeL0PQO 5qVOhhE9leAjj wfiyeU9qVcv+H86HTS5XO GBONC8CRrz5H9HdRczjsP I+SD39BSImHC11hXLvzKF cy0ggcGs6ZgWm MSIdNQP6sKfeSXycn8RtJ BOwO77ksGYmr9A4UDYnfA wdcJDdSjEtfDC9tJ7bZKs riohel0kxtnic Hphro1eios15hW35Q27tP KawAMQzYRS7HVBoTQKpgM usre7dbH0aGc6+YImdc9r jo8wguRl2TaSx EEOuskKotVkiJPY7y8BgW a70F9LrbYonx0SaWtr6ko 55cZGsj3O0tVS0QZsgRTV zbS8oBEbjWyC1 FCWlRxSgoC51nIRrAGldC f0bsBjqxBcfVT3eZQGyky zuWRXvrK6pLMUoiUEksOw zRI5yFZCiirkw e901JzHhDNK7AKKhkJFfG 8PetU6wCmBiMALwTAVwR7 SfuYRzMHpfH229LJkpWqO 5IBLeslZpU2Jf HTYhlTdeBqJ3a6F1Ci8Lu 6RwgxuwRWK6CZcaLUAeJh E2GvVnNpC4T4VpInr3SBG ebUunZW1pY7Tq KBXdmnuxlcpfmAP8CWCqJ HMkmY09kWUsRCriEx6iw1 S1j869GWVyXAGgyD98Is1 udDogMTBwdCBU dP2yyymdf9cebivoLuOyA LGbZRx8SAv1UKPpmNxkEr OnZCJ3HgX6MMF2zFPlrL3 jwMosjdrmvO1h Oyc+D59wcX2yDDG7SUE3v twbWFPhcyVlZL71TM51O0 RyPjwvdGFibGU+PGRpdiB uyNfdGC9zVlEw s2zqa6DyELyhF5VpHCCnS HpeQss1LILwUAN4uXJ9fN 2oPHAoXUtks2J5tDW1I4H emcOdss1bw7yp NCDeBGodC45qsTFnl9Q6U OUqiDO3HOAbhCaaViNkgJ 93Oyc+YCInhVvww6GpHss re5gki0lwjBh1 RkKnGFAioaFppAnhYHJ8f 4GmFq35M87fCRsfZQYyCN JbQADiSAVnoZtrwz1ocR0 wIi8+PGNvbCB3 yAW4tC2kLBCrPoW4IGsdS 254DuOxfRXtNbsno8cdg5 ntoBn8YwXoREKursBxlJg sMWU3m4PdLp08 L94eZOufOBFxIZLkOEJcS QVubJkxiu7fjU6zWb1+PC 0xi9hxne12bF07xEZ+PHR uIHA9gRwuGPcs NIAluN9fRIglDbC9GCQoR tJecY20pSIyBGxyRr6nyW wjeVbxOX8tHARxkwhfg75 2BtRrt3hnEEGm oLAuSSbtJOC0H12gw9Y9F GHaHJTiOWQ1nRS2sH7srS lnbjogbGVmdDsgdmVydGl xQMpfGHigG603 IHRvcDsnPlBhdGllbnQgT wHqRRz4M9LwOro4REFclO niJS9dvLKsBRxrZw0nuIz wmCymUZ6vMBHq nmtuj013ItFfm6nmCXBrr UBhCIicYRF2G00ui1I5ZI WzJWOlSTK7dGL3zU4zgSb nbjogbGVmdDsg ymAfyInaUXptSJdeT601V HRvcDsnPkJpcnRoIERhdG X6NT70AQ59nMJlk3X6aWJ 5J0FqLNYpcycm ylfdqFD0FWOfDXAfkC79T i9nhYgjTy7iMAMzTKT2VL XmxGPfL4HhvG8gVwIdKYI tEGLeF8XphLPy WAzbY731TBhvWqL1ZKJdg wCvS9HcUEGdeQmfXtC1r5 F1Cb3MG1A2PP86KV60dFG qt2V9tUE3A5Na GWGidelmawosmYO8FDBoE YRtlG29Jv5chAgrYj9cRQ BtRTL1RDDzjISaI7UxhG3 yOiAjMDAwMDAw J0DciAUiRYxjM318TMvaG iW2RNFuxkCoT2VnONTntP zlNiQ6s4U5Fs2JNVr2VG7 6EW96lMNnz7B1 tIN6E1IgLMHkodmtswmwh JV3CTAtIKSooX11Yd2ouL grKo5fXGCuXFR0MZOfnFC qK0YapO3hUuGm TNRcFIFpV2XmaSJqACakB 218UPluTvM2QIUpxyAkR1 NmKBAcnPorSaY0m1N9Ee3 TOIEgUO84ECJ5 uCY7WP07PG99U6NzHpcjm GFibGU+PHRhYmxlIHdpZH RoPScxMDAlJyBzdHlsZT0 tXh2nRBJgECMq kOkztIAuEtXtu8nvJYHvK DmoKA9zyMvdQ0LxyEA1YW Jvk7p6Xa08D22bM7UcrRJ +JRUgqRP4pOH3 pI0jAmSnPaV3WPrrW969M sCwwNPfChqgr4gnh7gpcO o2KaG2OWQyjjAcrJneIPB 6n0TfMh42D26i IHdpZHRoPSIxNSUiIHZhb Szmwm3krF5uSr1+PGNvbC S3oRD3sB7fSyEbXxT0DFw eO028UlMcoGYa Sbshg1bjw3yvbId3LvEnM NSjfeOrjBejGMO8f1ZfNs 07Q6IdlTmju0TuQhz2yo2 8xWYwi7G9sHG9 W6KtOEGkcfjwdUKnnFwdD R9dVFJjxpipKQTfbQ7zXC SeX3n8KyQrQyX8JNcqT8E jyhO9CLTqyOGm VCrlCLV5T50ut6D3HHPpJ PWhEPP7gQG3nM3ljHsvnw ogbGVmdDsgdmVydGljYWw bXNqiA127SADu mLvwRYMfzF2xTYIgsZGcg RiaFB3xXVNbkresTaSJHK CIODwxTYNWI2ASSVbCQTF gRzwvdGQ+PHRk GBU3pEuuNUlpPSDtiY5hV JWyC7i8GuHhYfY5UGueN8 HwULEtaoltZv24lQ4nFbV dMuR1CMduD9Ea ppB2WHEtkWEbNXftSEG0B 37ww6A1XNSzEZRvMBQ7lJ H4cK7wqCgxnohflCCdnZs gdmVydGljYWwt OFzsG485XYZkjDurCoKdK tB4EeR2YJQ4C2MaSpo1GD RyrAkyPQ5dyKSfMUgpNe5 coZgkbDpzSV0u VQUtczsgUGCjyV7eOAAvl XRiwMloAK4oBSZpppvan9 61QcTdXTE2EEQfgYAlU8U xvP2kZkLnVGXp BELuS4MrbTLcRPsxU901N ZusHpH8ZRDxwzSyR9TmNT HwuUadInZ5r8B9Je6lWrP ZZWFyczwvdGQ+ UEDiXJO8aZarBBwuMUQru Y7bXXLqC3z8YzCuQqW8CY zlD0MoIEPrequrPb02gT3 rEzYwFmG4RLjk Q3WdayS5JPRojQMfMQjaJ IG9L41bu8H9PJOmPHYeYW I9nMI3qD1elUxsleiqfBH mdDsgdmVydGlj UImzKMhjB393BCWsyYmfO kZlbWFsZTwvdGQ+PHRkIH X1kYkeGEjyBBNfdU7dBDF fO6k5XkSxKsL8 TSehF6HiEXMgvlnsTv91l G6dKfWrJnU5FKlaJ2Kgrv C8SEXxjCNuKYsaTFN1I64 ec2Y1EMYaJNNa SAS2xEX1fP4jvLmgnrrhc GVmdDsgdmVydGljYWwtYW yzN864ETNgiCrpCgAoSKY bUD4ofXaxzAH+ ZV01it97J2LlYbhvHmp1N CNkGYH8dUB5nJ9gMIFnKY hon6I1aLM9M8YygfEpiw4 ab4leFNGxJAfv K04nzUKlo3O8JTYpbLQ3Y HJhuJtmKbXglO94Csy+PG UjiCxop9GtCizbo4xwm0d muZs1WdUyHXXg mdQpcKamTMJ4x6CmXa59K 29sIHdpZHRoPSIzMCUiIH YwhAplrb7nuG0wSv3+PGN tfBX8fVL9eA6x LhWoShZ9SVeoD990KyVnj CHtQwivw9xov2jlfNf1Ys WhDTKrnlMjgSeaDLZ7v5H iWs04R1FshVjt l8NoXao6rq27dKRfl9D4z YN5O0UuVGYkskluyRAbrU lhHP9hRVPttvcfQRGpnA8 hVUCjQ8l7MdHf BrZ2NDpxG2WaodU7RXOji PKeGTLemHTFjJ0kbljyg7 hhvrnuJsUiFTTqRCo8XTn 0LWFsaWduOiBs ZYV2VuQ0WTC0vTRvnL2zq KlmyotvmE7dQvk+UGh5c2 fhmXJaGD1laVX3JJ56YO6 9sFBkg4D6vYL4 E4OlUHKuzlwbwtjvsLP8N CPhKULzyG71Hg1yhVubPc 3nRPKeCUW8FNTagGIpI1U moX2qSfJoUYSf EEIqR8MsjIZhHSayW753X OunQmZ9WVSbpoIxI6GoRT VcoJbwYhD1m0I8Wt2WZW1 7OZ08BT24mMSc h6J9dEE8N3WyVQGqbyxut xdzqYH5EGVhPSSweD36Nj 0jjJgqFz3wOLTbIGS8FCV cgQAsN4IglT0t UeVlFIZyGUJtP7MdtBWvK UcqK794SGukAiQ1AJEmjh NfY0QqPSPxcHdqStM6l7G 0Yk5ENd14CO56 VE97zEKhr8D3kYF9C8ElH IQdunpghaxbzIB7JSOwIL CfeO21Ja3gsTrdXu9vCPN fZSF3PRUkaPEh H0JtrN8vSyOeGTMsXJXiZ 0OnhEAcTNulT306CLulHq E1WULqisHpQ4HkEAMklAm yXpI9q5P6Po3X DLpzvyh5V6YpYatcyLX+P G07HHLuPD74kYQdlMLpo7 ywwNb8JoDgXXQdXTV1cRq lCRyie7IpYBEm Y29s (more content not included)... [facility] Coding Summary. CD:[id number]:[id number] G h0bWw+PGhlYWQ+AN0CBSG mG65dvMLwmQ9CS3oYTW6Z HUXHPOQTCY9CEI0xhXQ7Q NexC0TeutSj XlzuhQRhON39SPc9BNJ5c PszPNbkzC4hjSWpA5f9Dp KtVI24pK86TGahXNFdHkN 3LjZpbjsgbWFy E7rtAjTeuZYxYmv+PHRhY mxlIHdpZHRoPScxMDAlJy LscJifVW7zTy5lMEVfRAZ vbGxhcHNlOiBj a6opMWPgBYurJD3zzTqqQ 1RpzZI1LMBeq9e2So24dU I+ONScOVJ7bFrkILejv92 1JtShi4ghZGQ3 lSUbIEajFFW8J94av7S6M VJrYMHoFKE6dVJ3wZ8shF glvrqlV6KogNBkSeZ0HPI 2uXEpsH8jrEip ytfngO0bUvc+A04OAK6QM MJTYY4WTkh7U7XjEibxrH I+XM14COEvMO60lUKvlWZ pj6tgcYm6SdPb XJXoWGL7nGlqGLdsf2QyB YKxH95jtHSwo4N4JALfjE uirBUkThVxfTR5yG2zBOm nyeycq6imirfh Ocnfa6ermq25fB77Z03iW TtoNUKwCXB2IJEmIXNgfV otlo9ciD2tXt9+ZNtpo2q pi9rykXg6FoGy FZChnjAmhObrDXF8x9MyF o22U0AupMtmi0NxCze5cr 74sYOwh5B2yCU1DKhxBQS igF5ePVurQtF1 MSMlTdOjsY75lZEnPOvfS s1xeTxvvWjiHI4fHGQomb tmXVTmaY4iZOEffPWjaBd sKW0iRBQvigdv g115RrOwHQH1ODQkrINiC 1PpiD3pSsNvRHYqQKMjQ6 XrjEXcBEehZ533HCyySkO 5OFBtffWvJ9Vq QZMlxSozTiY3g4B1Sq1Yh 2CidhcaPEO0EDysCLYkYo K5YrViTtR2W5MtBrp5QUS grAfnHI4vA4Co FPVmzitecylwyRL8IPKfL SCpvF25hCKrGCwmBy1to9 X8x253DQPyTNDrlK56Hf5 udDogMTBwdCBU yP5qyovpy6ngecyoAfKuM SXnCNq4FCz3SLOlgLusEa MePHI4LiD3PMK0lANpjQ8 bzKpjovysdP3z Oyc+Q21lmJ4kZVU9CUS2z tdwMZVddrWnEI82GL02N8 RyPjwvdGFibGU+PGRpdiB xnIrfPT6jLmVt u1nby9WaNLgdV7DhIKTlJ XzzWgx7FRIlNBK4pLZ6fM 0mDJWaKPaxp6A8pPI8Y1K zpsKims2ex5bo CQVgYJocP01lmILkl6E7D PRpxDA1LFNekCrdMcInfO 93Oyc+CUConWnmg7AwBrz rm9rvi8ycpFq1 IuGsEDAvxaKppBgpKRG4d 6NrSo67Q90jCBldMKXcXX DpYBZpIGMxoHbxiz6eoF8 wIi8+PGNvbCB3 jYJ6nU9sINPjDbS5TNomH 914YhFkkRGiJwnik2bff7 nznLq0SvDjVWFsqnSajUw vBWO5y9NmMd67 B38iAYumQVJbVKSuQYRqJ AOrnKfkws8ooD4gRx8+PC 9vf2zrqn40qM71tGP+PHR mFBL7sAxoIWch FKJsjA3dWHxgQnT9GKBaH lJttN22iHEbUXvnBy0lcD sxaFetAP3sVJXjbynxk44 0IqYen7blOXXr bQNeFInkEMQ8V26pf4Y1L QUvNQBsVIC8qDD2nY1zdN lnbjogbGVmdDsgdmVydGl sYBcmZYssI108 IHRvcDsnPlBhdGllbnQgT eHdVNf3N6EnHmb0YEMttA fnSH4hiOUnXVmpAr1inTs yqEixBF0tOWYm njmpe183FxZtl2scYLThk BFkYNrfLYB6S82lu5V3IR AwIXWbGWK0kHQ6vA9npTd nbjogbGVmdDsg rjErjGkmXFqcWJhhL957Q HRvcDsnPkJpcnRoIERhdG U8NG45VI07vSUuf0I5qOG 8P4IoOOClyysj gmwwkPA4NSQxQMMxcA36Y m5qsKsbUr8lEMNxEMA1EK DapDRdH5GxyL6aTdGzNDO xYJNjL9GwmLKv ZTbyO022UWbsZeQ3JOAre lTgM0DzWTRwlFngGyY3f2 Q3Di7EK1R6UV86MI78iRX fm3B2fST8G3Mb GDEwnvdvmatcaQS6PTMuN OEcuO49Ps4yoIcjGr8nPW MmRFF8DUOdkOGqD3PkwC1 yOiAjMDAwMDAw Y9OvpFUdNGpwL982HSbdB zR1NPPschXyO3CrEBQnnA chNbI2e3G8Xh9CDCg0TV9 6CN21nJZzo1R0 zDO5Y7DrOFBbygnwxarfg AQ5TDDgFJIagT32Wt8umM sdWe7sZLFvQCK7KUOcwNB kQ3MhqA4hRfXn CEVrBJScB4OqfIQtRYxqB 471KKwgUoA0XQSbbeKqX6 KcZYTwlIkeZnJ6v8C4Sq4 HOQCwEG39PSZ4 iWI9RR92XN27U2GwShuyw GFibGU+PHRhYmxlIHdpZH RoPScxMDAlJyBzdHlsZT0 tOb2cKMWgBMRl dQzprUHeMeDpv9vdFUTlL UxnLE0nsDhdF0McgTF8CN Hmo7d3Ce36Y20vB9WstCX +LUIbuBO1tTF4 aX2lQyJwIcB8MRyxC338K gBosAXfMtaze0qvz0ozzZ d9CeO5GHVhzdCiwOriPYA 2n9TnAt38X52z IHdpZHRoPSIxNSUiIHZhb Grfrm1wlT5dJz6+PGNvbC K0fAM7eF7uYsDpSgV6UWg yB138SqAxaTWk Dqetk4hgt4weaAr2DrXyS VMwvtOdcPmmYHC5r2LcEy 86V7XyjTbvw7HoHlw9fl7 6jESza1I0dGK4 U6GhHKZsfpvmxJPacFmmY X2wOQPqsxtwEZRimU9iKJ HoU7j8LsJeLzO2SCymK4C sksR3SIMtwNVs MOtmWEK5K84yc3I7QUBcK NBpZEE9hMZ0zO4mcThohz ogbGVmdDsgdmVydGljYWw ySIymO694KNPf cHgaOXWrgW6dRMEpgXTzr MubSW4aXXTkbvjhKjNGBQ HYJWmuRLDGN1NWHTmTICB gRzwvdGQ+PHRk BCM9pIkwNOzqDBHciF0oF FWbN8g1ImWtKbC1GDaaB3 KiHSXunoqhIt88cC8nCwC lHjQ9XWhbD4Ri noZ1HASwtDUgGJrjLNR3S 56zm2V1GEMfAIGzSZJ0bH Y9xJ8twQkzhlbdjTGtxVj gdmVydGljYWwt WLceX537MNZspKowDsKbO bY1UnS5QVE3T8FnZtx2FY IejFjeVD3egBNaBLvkIn0 uqRipuFomEU6t TJRjgmotFDQmqF0hMDWxk VGmdRjaNU1vWXBqqgbef9 53VcXzWVN6QQUabGYaL0I qmT4nFrPvOTMp GXHjP7RpkOHmAZscZ229P UydHaR4BBJyecNfF5DvXC IsuZfoHiZ3b3O1Rw5oTcY ZZWFyczwvdGQ+ BFZxLMK4xYuaDSxzHBIix X3cJLYlC0f4GtKdSxD4SX ixZ7UbUMEutxwyGe69iA8 bNwTiDtJ2UKel R6YkysO1JFYnfVMwLIqdU RQ0O18kn6Z1AETuOVUrSD P5rTK8bI1sbJbysylavAQ mdDsgdmVydGlj NNucQBqmW534KNLimTgpN kZlbWFsZTwvdGQ+PHRkIH N1iOitJVtoHFDrrL9dGPK cL2p6KlWoNxH5 RKnpT5FtLNUuarvjSh39x H5tFdYhYvJ9QTzqX0Bfqn L4ERPbfANaUTmmDCS7C22 ms5K1NQGlYDTy OGH3tGU8xQ7qbFtsugpho GVmdDsgdmVydGljYWwtYW heF432TDSnzHadWdRhEEO gFV1jnDdnuID+ JH48jg80H1XeLsrfKhk6D LBfQEV3yRD0hT8zYGQsOO ocw1N9xES0I8SckaOgjy2 pr8isQKTlMCfo P53osXTkh5E0GKXxnFE5X WGaqZoxZmLsiB01Puy+PG LxvCflx9FfSjbnh5eud7w koEl9SpMvJAQt kkRzmSxiQST5o7PkIa43D 29sIHdpZHRoPSIzMCUiIH KxvKadwa0cuL5sUg1+PGN ncFR6tCE3yL5v RyEbXfT7GElgS457XnQqq WLtLscpg2mzq8zmnBh8Uh FaHPXyqyPmeFukQQE8q1P uIp57B6PwtDwn v8KkSeb8aq27vBYsw6E8z MK3A5ZtPMSdzbpxiFDzlS ujFD7iPHKlmvvxNYDluO8 kNHTxG0b7SmPm BwE2CWlpF9NwesU8HLDjx HHnBCJoxVIGsP9odebmx7 fwqoreTqAvFAAfKFm9BMw 0LWFsaWduOiBs ANH8TyQ2SDX2bUSgtE5iu EuvomylkC7rZag+UGh5c2 fdjAZpGP9kbWK8YR01WV2 9oZJxx9H2uIW1 G8SaHONaqrozzemesRA3R MJeRMHnrR84Lc7gfDrnXa 3vBQYwWLH2PBGazIIrX9Z lhK4zEbBrNTUl UXTtI4CebHOrVWjrE784W EfpZdA6FYUfcjWpD5RwCR PsiMymNaZ2o9U7Ch6SWW5 8NB38PD45tNBb i2C0kON0C5WsHFSogjdex toxnGU6EXIqGDClcX82Wz 1azZpbDo3yMLBkWBV8OEJ gdOXvL2AkfK0q QtRxVERoBKCtA4KftFPoV ItdG452CQbhRuH2OJVpoa ViJ5CzYQVuzPacRqU9o3N 5Wm3MKs02DP57 LF99tHHdm4N1tFA1U5LqK MFshgkfqzfruHJ0LSIpQE EfnW87We1tfKdbWc3eVBL sIGM7XUMiwBGn X7MrcP0rLhQvLIMaEWWoA 4LekIZgEOxuL971POdzOm Y6FTVbrgAoC8ShHTAgaYj sVlZ8a7L9Ko8K HEycuym7W2EaZwufuGR+P V07ZWFnAL85iMQjbDZgy2 hpqAm6CpUwTCUrHRE1zFd oQIaqo5AfDYGf Y29s (more content not included)... Normal [facility] Discharge Instructionson Discharge Instructions [id number]# 1.00CD:127 Normal [facility] ED Clinical Summaryon 2022 ED Clinical Summary [place] [id number] ED Clinical Summary Person Information Name: RJ ELENA Calista/[facility] Age: 32 Years : 1990 Sex: Female Language: Hebrew PCP: Mark Pitts DO Marital Status: Single Phone: [phone] Visit Id: Visit Reason: Rash; Allergic reaction [...] 09/05/2022 22:58:39 09/05/2022 22:58:39 09/05/2022 22:58:39 ADDRESS: [address] [place] [address] [address] [facility] [id number] PHYS DOC NOTES: MEDICAL INFORMATION: Prescriptions Given: Medications to Continue Taking That Have Changed [facility], [address] [place], [place] [id number], [phone] START: predniSONE (predniSONE 20 mg Tab) 3 [...] Refills: 0. PATIENT EDUCATION INFORMATION: Instructions: Hives, Udjt-xe-Ulzx Follow up: With: Address: When: KATJA MCGINNIS [address] [place], [place] [id number] Business (1) In 3 days 09/08/2022 Comments: Follow-up for further evaluation of your urticarial rashes and reactions. With: Address: When: [address] [address] [employer] (1) In 3 days DIAGNOSIS: Allergic reaction; Urticaria Normal [facility] ED Note-Physicianon 09-06-19 ED Note-Physician Basic Information [...] that she has never follow-up with an sisal operator before. Denies any chest pain. Denies [...] and Complexity of Problems Differential Diagnosis: [] [facility] Data External documents reviewed: [] My EKG [...] I do want her to see her sisal operator. Discussed return precautions. Follow-up with your [...] Once, # 1 kit(s), Refills(s) 1, Pharmacy: [facility] (more content not included)... Normal [facility] Comment on above: Result Comment: Elec tronically [...] Being allergic to foods such as: ? [place] fruits. ? Milk. ? Eggs. ? Peanuts. [...] at home: Medicines ? Take or apply rerq-muv-uqmwkgy and prescription medicines only as told by [...] causes your hives. ? Take and apply encz-wmh-xpecxdn and prescription medicines only as told by [...] Reviewed: 01/09/2019 Elsevier Patient Education ? 2019 [employer]. Normal [facility] ED Patient Summaryon 023 ED Patient Summary [address] [address] Patient Discharge Instructions Person Information Name: RJ ELENA Age: 32 Years Arrival Date: 09/05/2022 21:00:52 Discharge Diagnosis: Allergic reaction; Urticaria Primary Care Physician: Mark Pitts DO Provider Information Primary Provider: Quita Clark DO Advanced Records Management Specialist:None The exam and treatment you received in the Emergency Department were for an urgent problem and are not intended as complete care. It is important that you follow up with a doctor, nurse practitioner, or physician?s field assistant for ongoing care. If your symptoms [...] Follow-up Instructions: With: Address: When: KATJA MCGINNIS [facility] [place] [address] Business (1) In 3 days 09/08/2022 Comments: Follow-up for further evaluation of your urticarial rashes and reactions. With: Address: When: Mark Pitts [address] [place] [address] [facility] (1) In 3 days In the event that this physician does not participate in your insurance network, please consult with your insurance company to find a nearby participating provider. Patient Education Materials: Hives, Feng-fs-Verc A MESSAGE TO ALL PATIENTS REGARDING OPIOIDS PRESCRIPTION OPIOIDS: WHAT YOU NEED TO KNOW Prescription opioids can be used to help relieve pgiemuah-fi-srcpjc pain and are often prescribed following a [...] of opioid (more content not included)... Normal [facility] Monitor Recordon 09-06-2022 Monitor Record [id number]# 1.00CD:127 [facility] Consent for Treatmenton 08-11 Consent for Treatment [id number]#1 .00CD:127 [facility] Discharge Instructionson Discharge Instructions [id number]# 1.00CD:127 [facility] ED Clinical Summaryon 2022 ED Clinical Summary [place] [id number] ED Clinical Summary Person Information Name: RJ ELENA [place] Age: 32 Years : 1990 Sex: Female Language: Hebrew PCP: aMrk Pitts DO Marital Status: Single Phone: [phone] Visit Id: Visit Reason: Cough; Diarrhea; Fever; [...] 09/04/2022 14:23:43 09/04/2022 14:23:43 09/04/2022 14:23:43 ADDRESS: [address] [place] [address] [address] [place] [id number] PHYS DOC NOTES: MEDICAL INFORMATION: Prescriptions Given: New Medications [facility] [address], [address] [place], [place] [id number], [phone] brompheniramine/dextr omethorphan/PSE (Bromfed DM oral syrup) 5 [...] Infection, Adult Follow up: With: Address: When: [place] [address] [facility] (1) In 3 days 09/07/2022 Comments: Return to the emergency room if your symptoms get worse or any new symptoms DIAGNOSIS: 1:Upper respiratory infection Normal [facility] ED Note-Physicianon 09-04-19 ED Note-Physician Basic Information [...] and Complexity of Problems Differential Diagnosis: [] [facility] Data External documents reviewed: [] My EKG [...] for cold symptoms, 200 mL, Refill(s) 0, [facility], 160, cm, 09/04/22 13:15:00 EST, Height/Length Dosing, 85.6, kg, 09/04/22 13:15:00 EST, Weight Dosing Influenza A&B Ag Rapid COVID Antigen ([facility]) Disposition Plan Patient Discharge Condition Stable Discharge Disposition Discharged home Discharge Prescription List Prescriptions Bromfed DM oral syrup, 5 mL, Oral, QID, PRN Follow-up With When Contact Information Mark Pitts In 3 days 09/07/[address] [place] [address] [facility] (1) Additional Instructions: Return to the emergency [...] Current, 03/08/2019 (more content not included)... Normal [facility] Comment on above: Result Comment: Elec tronically Signed By: Solo Kimble M.D..haris\Date and Time Signed: 09/04/22 14:20 EST ED [...] to help relieve symptoms, such as: ? Mphn-zet-pnicegs cold medicines. ? Cough suppressants. Coughing is [...] other clear broths. General instructions ? Take sjyg-fpg-gbhbxlk and prescription medicines only as told by [...] and water are not available, use hand admitting interviewer. ? Avoid touching your mouth, face, eyes, [...] common infecti (more content not included)... Normal [facility] ED Patient Summaryon 023 ED Patient Summary [place] [id number] Patient Discharge Instructions Person Information Name: RJ ELENA Age: 32 Years Arrival Date: 09/04/2022 12:56:58 Discharge Diagnosis: 1:Upper respiratory infection Primary Care Physician: Mark Pitts DO Provider Information Primary Provider: Lamin Beyer, Solo Sheldon Advanced Records Management Specialist:None The exam and treatment you received in the Emergency Department were for an urgent problem and are not intended as complete care. It is important that you follow up with a doctor, nurse practitioner, or physician?s field assistant for ongoing care. If your symptoms [...] Follow-up Instructions: With: Address: When: Mark Pitts [address] [place], [place] [id number] Business (1) In 3 days 09/07/2022 Comments: [...] opioids can be used to help relieve cunxbbrx-ty-mrqoxx pain and are often prescribed following a [...] care p (more content not included)... Normal [facility] Influenza A&B Agon 3 Influenzae A Ag Negative Normal Negative [facility] Comment on above: Performed By: #### 2 [id number] #### [facility] Laboratory [address] [place] [address] Influenzae B Ag Negative Normal Negative [facility] Comment on above: Result Comment: Test sensitivity and specificity vary for age group, specimen type, antigen types, and prevalence of disease. Test results must be evaluated in conjunction with other clinical data available to the physician. Individuals who received nasally administered Influenza A vaccine may have positive test results up to 3 days after vaccination. Performed By: #### 2 [id number], [id number] #### [facility] [address] [place] [address] Prescriptions/Work Noteson 0 09-04-2022 Prescriptions/Work Notes [id number]# 1.00CD:127 Normal [facility] Rapid COVID Antigen ([facility])on 09-04-2022 Rapid COV Int NEG Ctl Pass Normal [facility] Comment on above: Performed By: #### 2 [id number], [id number] ####[facility] [address] [place] [address] Rapid COV Int POS Ctl Pass Normal [facility] Comment on above: Performed By: #### 2 [id number], [id number] ####[facility] [address] [place] [address] SARS-CoV+SARS-CoV-2 (COVID-19) Ag IA.rapid Ql (Resp) Not detected Normal Not Detected [facility] Comment on above: Result Comment: The Bloxr System for Rapid Detection of SARS-CoV-2 is [...] or revoked sooner. Performed By: #### 2 [id number], [id number] ####[place] [address] ADMITTED TO INTENSIVE CARE UNIT FOR CONDITION OF INTEREST:FIND:PT: NO Normal [facility] Comment on above: Performed By: #### 2 [id number], [id number] ####[place] [address] EMPLOYED IN A HEALTHCARE SETTING:FIND:PT: NO Normal [facility] Comment on above: Performed By: #### 2 [id number], [id number] ####[place] [address] FIRST TEST FOR CONDITION OF INTEREST:FIND:PT: Unknown Normal [facility] Comment on above: Performed By: #### 2 [id number], [id number] ####[place] [address] HAS SYMPTOMS RELATED TO CONDITION OF INTEREST:FIND:PT: YES Normal [facility] Comment on above: Performed By: #### 2 [id number], [id number] ####[place] [address] HOSPITALIZED FOR CONDITION OF INTEREST:FIND:PT: NO Normal [facility] Comment on above: Performed By: #### 2 [id number], [id number] ####[place] [address] STATUS:FIND:PT: Unknown Normal [facility] Comment on above: Performed By: #### 2 [id number], [id number] ####[place] [address] RESIDES IN A CONGREGATE CARE SETTING:FIND:PT: NO Normal [facility] Comment on above: Performed By: #### 2 [id number], [id number] ####[facility] [address] [place] [address] Coding Summary.on 07-28-2022 Coding Summary. CD:[id number] G h0bWw+PGhlYWQ+KA3BGGB lS43diXLnpB5NF3wHTF5I UKCDQWQABA6NTQ5daDS1E ApeP4AqlsBm LjbdzSPmRH20ENy8POG5z RtgWMrzcD2xtUBtF2i8Us WiMZ39oC98FJdmJOPmHgM 3LjZpbjsgbWFy D7gkIeKvzCNlHig+PHRhY mxlIHdpZHRoPScxMDAlJy WgmItvNL4fAx8wUSHbWLJ vbGxhcHNlOiBj r2klPKBgANliJZ7ygZapP 7AqkCL1PYKvt1z1Kz69cJ I+TFWlCTT1yHpbNEynb17 1YyYax1fbCUK3 aOCzXAikXTW3W65mt3Y8N GXhCSOtVQG0fBU2gV6zaQ lqcztsB5KzsIIpLuW5YBK 2mAYuyY9cgFdc sjqnbI5jUgm+X95JAC1IK UYLSN5GRmy2Q1GaXqnrbG I+AJ17UECfNY11gDHygXM pv0hkpJg6EpXy ATWiGAF0nVsgLVboz4ExP NMoE70yeLVui9P6XNUguA zfaSFuBaVclAB8cY8zSMa cttblu5qyxukg Eashv8fsih26rR75D74tE EcmLRQnCRW2THQgXCCorG cxfn6nlQ3xGu4+XKirc1l uo8yzcMa0SvRn RLCnfgBkxRtlSGQ6m5ExZ n49K7WiqMzyc8PjHwh9an 08eHKzs9O6bOH4BYbyGXJ riT1ySRemYmH8 YZOcPmVnjK33nPIhJOjaZ a4kzEscoOzeGC9iRQPoyg ovVQSgnG6bMTOmbILbfPe vQM2iIKMjgrnt x344TpKnZRU5OBOudIExK 1KocV3yDvMsIHCyLPCqT3 IifIPuHGukK038VLzqZyZ 1NZJlbrWiG4Vd QXObcQxuInX8a1U6Kz8Gf 3EvxjssPZH1TPwdANUbEm D1DhQiJqU9Q5YbIlt0XCC wzCtfNM2nZ4Vl EWYmborfapbgvEY7OJNpJ DGvrV37uTTlRLcmBq6jz1 C0z225UDUaDUEqpA06Ys2 udDogMTBwdCBU tL7khkyfy2nghsvsFyBiO TQgOIa2OFv6UBSqtIqyGn DfPNJ5FqX3UQE5eIMefB9 jhLegvapzjU6g Oyc+L12vqH9vVZJ0XPM7a vflAALpcvYcOZ94PQ34V8 RyPjwvdGFibGU+PGRpdiB rzQeuUQ4yYjLk r5glh9XjWSwiM7HdTUJpP DlkPuj5KTJvJRS8zID5hL 6wMGEpKNmcf7S9nKN0W1E rumBmqg7ln8nw ESYtQFucR57taTHrj9A9D WNfmRE6CGHykGvgWmToxP 93Oyc+OKAzjXglj3CuKbu lr4kcu1oooUq6 TsOiNAMhttAbbJvcKSE6y 5NvYv50L08bLTeeHILdST JcRFNjKZPhaXpzok3hdA1 wIi8+PGNvbCB3 xAK4pT3tMUGsDoL2PPsbK 782CmOpmXFkMyeqm7mys1 xuzYu2EaKgBTEfewUyrBk xFRD4q8XwSt07 J48mROmcLKAkEYUaEQLaV OScqLkbeu7tuK3mBy1+PC 3mb9leol06sC12dLV+PHR vZWZ5nOjhFVsi OLRssP4wJNneXyU4ADNyC iMshN93pQOgAQyfQe5vpM ijtWdrRF5rHWQjmjmds22 6CfVag9uhPIWe cOXwFRzwGPV2D92eg8W2X OOxYZCcWPA6dPF5pO6hjS lnbjogbGVmdDsgdmVydGl cRYhpRTipU468 IHRvcDsnPlBhdGllbnQgT aVvOXr2P1SwFmo7PEFwyX neLL2owYUwAZbaHp4unXl acXwcXT6mJMWa psers554GzYqg9icGWIsa WMzLBwkHKL9D95wl5W3KX OpJIFkTJB3dOU9nP3ltTc nbjogbGVmdDsg ucJuvEobZMtdQStqK704A HRvcDsnPkJpcnRoIERhdG Q1NC29UV04fPBbj4N8vML 0Y6IlUZWkwklc dmvjcTE6IANpMSIwnH21H a2jmIkgVe1rASJkOBU5KO MuyUIwB7YieR8fQiEhSSF bALMxO9SsjTPe WLhmO240RMpyRlG9YDQfk zPhI9LbEGFhdFeePwW2k9 Q6Mp3AP7U2UD45GO65lXX rp5E3fJL4E3If XKHwtuvolhfiuNH8GUVkV PByyA71Za9zsPkhGb8aIU RrQWO2CJHdwRXdR1EzuA6 yOiAjMDAwMDAw K9NqjCQtZDemG094NFogF rO0GVKqpzKeE5AzTZUcqW bfHpN0r1X6Up6MVDm7NM7 4LX76eLXin1B9 fPK6W3QdGMWtntwaceabi OF6EHTtRQQgyK24Ly1fuF itUf1qOJQsPFX1BGWdiVY vJ7YvlS7iSyJs OZDePKCwV1AwmGJcBWmvF 709SPhwGuO0CWFxttCkV5 HnRZXqhDvjBgS7x2B4Pi6 HVVIeFZ01CXY5 zZV2WT55AF83D6GaGibcx GFibGU+PHRhYmxlIHdpZH RoPScxMDAlJyBzdHlsZT0 wLh7pDQEnJOSu jLdofWLgWkLxe9jaMQYiO HqcZJ4gcUauY1IeeRC1AZ Mat1o7Hw88I88wD3ZnkVI +HVLwuKI2mQB2 tN1aWoIxMdP5QIhiF213R nZzqHQiMfztf4sms4dttT p2YbW5TTKwtsPmpSgvVDE 2w5NjNe57T33h IHdpZHRoPSIxNSUiIHZhb Rbxwo1axC3xLr8+PGNvbC J8yBS3oP6yXtIbLuP4CLb yS297EyLjsWOw Xjonx8hyr5gjpKl9FnPzC NVgiiQnzBuuYCZ9v2StUh 57U7AgaXify6YhBeo5eo1 4nUWlx5P2jDT6 O2IzRGRzhgtljTUbwWszA D1cWUSehsfxEAGsiP5cRS GkZ7t2WoLuIdR0JHrzO9J dagB6DGUgkOYa YRbzNLP9F56tk7W6EFScH SUiUCH7pFR9eE2jwHerri ogbGVmdDsgdmVydGljYWw fLUslL712XSBh kZfgUVJcxQ2gDCHrrEGvp RfgJN6zJCFpcxwvTcEQLM MWPGmgXUUPN0RHDElIFLG gRzwvdGQ+PHRk DKX9oFraVNsyCLOxeO3lP LZdY7k4NfCaTcD1GUfnK4 VbMNRtrvgbCr93pQ4gNmN pFsS2PNzlP7Yb pzN5VKMswAUqKLfiVAI2F 77cy4L3FZVoYDUrJFT1aH B6mI1emOsjdewnaDSiwYv gdmVydGljYWwt HQedW114EMXkmSkpBlCxK zI9YcN9LZE3E2OlQas6TS PfiJbxRN4xbIVhZHmxIw5 dqFrxrSfuEH0w XFZeaebjXMSmoJ0pXUCpr KZpcXwkGG7sEWBrqziox4 77KaBqATN4WGLwcLDrL0L opG4lYiZrHGBm HSEoU9GhtCBqBAbvA770K YcpMzH1SJVvfzWkD1YcYT LpmOmsSwD8h6I7Oj4cGfX ZZWFyczwvdGQ+ MWFmLXZ0eLicCMqyFVRsm S6fIHIkG2r7HsMzQnB1BK suI5DdGCUvtoduZu32qI2 lRfGfLuP7ZYoz A8MmvdF0UNUhcSUoZEdbE ZS7Y82tf1K6HSOcZTYkSB A9rFU9zB7koVytusdvbKK mdDsgdmVydGlj YJpiKIbaL150QLZoyIelL kZlbWFsZTwvdGQ+PHRkIH W8wKijGBvgSHLbeA8tBSP rW9y4PzNjIqB3 GSmbW3DbHEMxsayhFf17v O6vElHyHjY5VRurG0Udue Z0QYHquQYkCRdrXXO3F85 vk3A0CRUsUIKl MDA6cEM2uA5mlXttmzhtb GVmdDsgdmVydGljYWwtYW vxQ931WSImqRhrEcTwXSY lAW2sqTrjcKS+ QL09lk41X0UjCqfsDiv0F QUxLDJ7aVC5lJ1uBOBfUC dcr1Y7aBP1V7AmwwHeci8 dr2qgWQYpLTtc I21tvJQkd9F1DAGqqUL9H QPvlJtfHeKscT74Zbt+PG CuvZnhf3JeGhdpv5phd1p mtZt6OpWeOQRl kuXnyPxnVWT6y9UmOv85W 29sIHdpZHRoPSIzMCUiIH WddNjnaz9igT9zTf2+PGN zvSX9lZK7sD7n OyIyNgX9RAprL460EsApw MMbOehdf1upn9qryZq0We WdLHVzztTowEkkPIO0h8C uMa51D3VnqJkn f4CmVyw5eg92rSGao7J8u BO1G9NhIOMngduckOBcbG hvJJ3hSSNgfjtnUHLwqK4 hNXVmQ1l9VdNa ZyX9MRubG9BwzwH4UVHwe DKdJSNzaAAIvS5sfgvmp5 kmcozoOrViGJEyMPb8WLi 0LWFsaWduOiBs RNF6QoG8OEY6zZEyiM3st FpdrlbxyG5iQgc+UGh5c2 mxeSXaYD0uvST3QH15ZN0 6rVRjs3W3aXJ5 R1XdIIWkagcgjxwzqOQ7M WWhABThuM01Iu7txBhbLu 6oILCaXGX9ZKZadHFyH5G pwN3fJaRwJHAm TBSnN6WvfFUfSTtkF381B ApmGyS4ZPBpdpKtO9RpEI IwwTfhRnT0i9L4Qr1ZXV2 2GH48DS33dIJp v4X3mIP1S6KtPVWvdnuoo udlyJE2GNCqQYRwnO80Uv 6lhHmdZz2pVIHpZQI3NBP ybMGtD5BzlT3q GqYtXHPmXCMaQ9OdmZQpO SbkU813MCxtHgM0OSDqau LdG8BiOYBjqMgxOfS3q2C 1Yk9JNd84MV76 ZZ10yGEvg3B5vRW3G5BiS WWtfxukspsthIP2WNJjZJ VsyP30Xu0hxFzsNn1fGDS lYNY9UDFrzVAu V6LugD4oCaIiYMQyWFDdO 2JkkHVeBRtpC434BJtwFk C7DOVaikSdI9IqJRJukTu nQkG8z1T7Tk1P SWrprwq1E3TwAkoagSR+P Q12PLMeMR10wXBfsVEpp1 ioiOa0KoRiMQUkSHD9lJk iFFdrh5ZvICIw Y29s (more content not included)... Normal [facility] ED Note-Physicianon 07-28-19 ED Note-Physician Basic Information [...] My Ultrasound interpretation: [] Decision rules/scores evaluated: [place] ankle rule, cannot rule out based on [...] medications Follow-up With When Contact Information Mark Florencia In 3 days 07/30/2022 EST [address] [place] [address]- Business (1) Additional Instructions: Patient Education Elastic Bandage and RICE Therapy Ankle Sprain Attestation Patient seen and evaluated by the physician field assistant. Attending physician was present in the emergency department and supervised care. This visit was performed by both the physician and an APC. I performed all aspects of the MDM as documented. This report was transcribed using voice recognition software. Every effort was made to ensure accuracy, however, inadvertently computerized oil driller mistakes may be present. Appropriate healthcare PPE [...] 1 tab(s (more content not included)... Normal [facility] Comment on above: Result Comment: Elec tronically Signed By: Juan Ott PA-C\.br\Date and Time Signed: 07/27/22 12:06 EST\.br\Electronically Co-Signed By: Saúl Gaspar MD\.br\Date and Time Co-Signed: 07/28/22 07:23 EST Consent for Treatmenton 07-10 Consent for Treatment [id number] .00CD:127 Normal [facility] Discharge Instructionson Discharge Instructions [id number] .[id number]:127 Normal [facility] ED Clinical Summaryon 2022 ED Clinical Summary [address] [address] ED Clinical Summary Person Information Name: RJ ELENA [place] Age: 32 Years : 1990 Sex: Female Language: Hebrew PCP: Mark Pitts DO Marital Status: Single Phone: [phone] Visit Id: Visit Reason: Ankle pain-swelling; RIGHT [...] 07/27/2022 11:34:49 ADDRESS: [address] [facility] [id number] PHYS DOC NOTES: MEDICAL INFORMATION: Prescriptions Given: [...] Ankle Sprain Follow up: With: Address: When: [place] [id number] Business (1) In 3 days 07/30/2022 DIAGNOSIS: Ankle sprain Normal [facility] ED Patient Education Noteon 07-27-2022 ED Patient [...] your activities and whether you should start hjfak-vb-uyohuz exercises for your injury. Ice Ice your [...] 12/16/2002 Document Revised: 03/16/2018 Document Reviewed: 03/16/2018 [employer] Patient Education ? 2019 [employer] Ankle Sprain An ankle sprain is a [...] the cau (more content not included)... Normal [facility] ED Patient Summaryon 023 ED Patient Summary [place] [id number] Patient Discharge Instructions Person Information Name: RJ ELENA Age: 32 Years Arrival Date: 07/27/2022 10:09:44 Discharge Diagnosis: Ankle sprain Primary Care Physician: Mark Pitts DO Provider Information Primary Provider: [employer] Specialist:Juan Ott PA-C The exam and treatment you received in the Emergency Department were for an urgent problem and are not intended as complete care. It is important that you follow up with a doctor, nurse practitioner, or physician?s field assistant for ongoing care. If your symptoms [...] Follow-up Instructions: With: Address: When: Mark Pitts [address] [place] [address] [facility] () In 3 days 07/30/2022 In the event that this physician does not participate in your insurance network, please consult with your insurance company to find a nearby participating provider. Patient Education Materials: Elastic Bandage and RICE Therapy; Ankle Sprain A MESSAGE TO ALL PATIENTS REGARDING OPIOIDS PRESCRIPTION OPIOIDS: WHAT YOU NEED TO KNOW Prescription opioids can be used to help relieve zrhhnxin-kt-yhgbqk pain and are often prescribed following a [...] struggling with addiction, tell your health care tech and ask for guidance or call SAM[employer]?S National Helpline at 5-478-529-HELP. v Source: (more content not included)... Normal [facility] Prescriptions/Work Noteson 0 07-27-2022 Prescriptions/Work Notes [id number]#1 .00CD:127 Normal [facility] XR Ankle 3+ Views Righton XR Ankle [...] MD, V. Transcribed by: ESTEVAN Technologist: [facility] Coding Summary.on 04-18-2022 Coding Summary. CD:[id number] G h0bWw+PGhlYWQ+KN6JKSS kR24unBUdmV8PK3zLUX6B ZWCJPFCIUX9EID2waEH8Y UqkQ3DreyDg GyfqaFDoEF01GUy4RJF6m UxnIQdoiU2ckHOoY0r9Dx EwPG74wN12GKlkUMCsEkB 3LjZpbjsgbWFy A3ykFqLhyYHqQit+PHRhY mxlIHdpZHRoPScxMDAlJy CffYkeNK3cZg9fNHJbETT vbGxhcHNlOiBj z1rvGGUpZPqgQJ6eiMdxU 4FxxCV4UKYdi6s8Rx41gD I+ZTNcFKB1aFfhWRefm71 4JyUqj9itYHP0 lTArMGnoGTC0J75sp5P2Q TYvKTPqTAX2xQQ9iQ5fnP jpsvwbH5BlvDFrEhN5IBL 3gTVwjC8ztKso gmofuZ4bVrr+X98MKV6AU VVPQQ0GKbc5U2HhMdpmnN I+BV12LOFlEX04cGVehAO lu7nddFm7WhBu CCCsJHY2gAkoOUcvf5SxJ FGhV61bcARcl9R2DSCfeW rdyJBgOmFcjZK5jP0zSEg cojknd9mpsrct Ccvil5ueyt04wO25B43hX HazJAGfJQO4BYOjKEMusX pmkh4ncL7jKh3+GQmxk7u zf5yhfLf4CnMo FZOuggGzjFfgAMO5x0VqL z86Y0RmxLapo5ZyRbq3pz 17jRJlr6G4iQC6EYioSSV mrE6vWQxvJbW9 KQGnOqPhhP46eMIsAQtlE h1kvPkpgWswLL2nKTZkyw ryWMHwvU6iRUByiRMcuPk iKM0bIXJxvzwr e079KvXgSBA5YUVgeKChL 2ItjC4zNiHpTUNnQCHnB0 UgfIUnCBkrY707XDobVrX 1NVRzyyYdQ3Mt NEZmgNnnGuZ9s4R9Si8Za 5HjsigoUJW4NNgbBCDtBc BzVfZbUoM0L3RlIfl4MES abNnrGP4cB4Od QIIyjfhkfakluFP0OKBtK IUzgG70gTYjFJazQn2ku2 O2j397LKPmHZBofK05Zp4 udDogMTBwdCBU dU9onyqxv5htjdeiOnTfT YRmOXq8CCb7ZBCnkYejTq LkDMV6UvT5EUK6nXRumO2 dcQgyphurtJ3y Oyc+I47byP9aGXL4ZSR0p cgkNTOmifGkOR82MY11P8 RyPjwvdGFibGU+PGRpdiB sbYvcEY4jZuIb b3asl6GwZUjuT0ZzLIAzU UyaLoe2OWJqYSR9gVY4zU 0aOJMgGVqqi5U8hSE0C2C nfvIsbu4sf0xn PMRnLUllB33xaAJvn9C9G KUuhGU5APFceJjbSrCnxD 93Oyc+CWEhxEfwo0FoHxs iq1wzu3deiRh2 LgYuQSCmlyTdsCbxTFU8u 4SwZs02I81zBShfLTPzIO XiQHSkUOVmlYqtjo0qyK7 wIi8+PGNvbCB3 sDB7gY3iNNNwMkP5TQwnD 806VfUvpJDbNlznn5nwp3 gvnFk0PbYrWEMefnFalTf eNLF8e4VbZm57 H57xYSzwAHIgCDEoFHRxB YGgkUpjqs0uaB9cDb0+PC 9rq2ucrh22lS70tYJ+PHR qJRX8jOklYSev TXTwqP1wHRytTzJ9WAKuL fQohH78yQKfYHgnFr8imK wkxWrnPG5rESQyivuio52 9MzXul4rsSKZj fBJzCWxpEWX2J79ny1J4A SXkIRMkDEP2gTH4gU9ctW lnbjogbGVmdDsgdmVydGl jCBbtPRawX579 IHRvcDsnPlBhdGllbnQgT qDrHJz5R3TpOhy0QLWhfA mtWY1yfKAnUSrkNa1lpVe dbEnjKR0sBFXf kanrq972QvZwy9mfHAQjd WZiSMsnFJB1D64ou5Z7LF XcBBWhVEB2uMX2cL0iqCc nbjogbGVmdDsg ryYtzYnaUFzrMBapC912T HRvcDsnPkJpcnRoIERhdG T6KU91PQ39nCSuw0J5mCF 8N3JsYNImjcph ishybVQ7BGLfJVOsrS24K b5syArqZm9nITThHHT9VC CyePRhZ2KclU9eHdNgZWJ dGDZxK5FunNOq AMusC429VCasFrK9STVbk bToD5BsGZNuoLhdKpZ2z4 N7Pv1GU5R2NO89SN33iLS rn5G4nJZ4F7Cm KPPaexvnejveiXL5WBSoO WErvX62Hq9mmHogEx4qGJ TxGGT5UMEbzBNiU2KabD2 yOiAjMDAwMDAw U5PmbZHoWQcdY912UVsdV bW5WVFmkwRsD3EuFAHfnO vmHyS2s3H7Bq7RTGp8AY1 4XS12iZXpz8Q2 sXE2K9NzYDYqwwvevyeya UE8XYYcMQTctY57Ko9pcP ycGg6yJHZcTGM5MIRnuHC vU5QjfJ8kDxJr YREqMWDgH9DvfROyNLepN 820KQfdTjB3ETKvxdLsQ2 GuBFLnsGshMiF9w5E0Rc5 XFONqSC20QAK2 hNT8GH10VA22Y7IxJsbdv GFibGU+PHRhYmxlIHdpZH RoPScxMDAlJyBzdHlsZT0 hNi8yICXeRORc xOaieRAuImRbr6drVPRcS EjiPM5iiQrzJ3SucCN7AQ Puu3v2Qe93V03nV8SinSI +UUXgcBM4fBY9 pH2uGoYpJpD2SHygB332W wHmkWBbJvrvt0xve5morT x7XeW1EUKmyvEklMtyPQM 8y7MkKt65J63y IHdpZHRoPSIxNSUiIHZhb Gkeby5mvE4sNl1+PGNvbC U1sZZ3xG1lVxKhQpI4ICj mE114KdXytVDs Bqyua0pfc5wwlNb4AxMgR CJoqoNhoBeeFPM6o4JlZm 66O7DjnNvpt4FkSaz1xc3 9fGUxj4D2rJN7 L2BzKUWnkrrksMAztMwhY K4mKDEvwmhxPLIyvP3hXN QdL5s2ZmQbDiU0AOarB4C imlM2AFTxlLBj JFjlISL7F03ib5F0FVGmK FJfMAC9rLQ1uL1taDrvcm ogbGVmdDsgdmVydGljYWw mVDrfG164DTJu kZfxRHEfzA9kMVOupLYsh OplNC9sZGHqsjogOnIJBW PZBQcwCCMFJ9AMQVdEUXS gRzwvdGQ+PHRk ODG7eHodRKgnUDSmtJ0mI XWnE9v3FtEiEkC8WAdxQ1 ObIRVeivhuAq85vE6wTtV hXtX4JHwrM9Mx mzI0OIRcvWYmCYumBEO4R 80fh3W7ACPwSUEaJNJ9rJ S9tK5djAzyjmclcAHcmTh gdmVydGljYWwt PGuuA591GSZubTmhDlXxD rK6DuS9OVU6Z4BxEiu4MG BvjSyjXV7vjMDcOMyaMx8 naKebxWpzKG9r QNCakoiaPJHzvX1cLGFuh KAkvVmuDR3vQJBgdqhlg2 50RuNxZXJ1RKUfzRRmQ0N mgI5xIxUmGJOt EDXuD6IxoMUfEOjdS381I TunWhC4DJWkczBoL7JfFR MxeYzfZiB9x5F7Ec5lAiI ZZWFyczwvdGQ+ AXQsOQM5zBvtPGflDPLiy V2lMAQkM5b0PoRrJuL9TW fnD6KeMZBzhcpzLr17wO8 gMgUbTyF5STrx U8ViwxR8RUUekHQzROrhF SR2G19wt9A0YDYtUJNgEN P3cKY1tJ3vwBcbatftoOJ mdDsgdmVydGlj MBkbWVebM309CDCgkBqjR kZlbWFsZTwvdGQ+PHRkIH R4pFvuVPjvFDHfbG2uUPF qD9z7ZaGfZoE5 SUcgJ6UbKNRzulpqQe20j C6wIrSmUyX7BDaiZ7Bsbb A8YKPfbGYnOLbiAPK3P71 ph3D6XNJoXINh UKZ8hXI7pO4xnItbmlhut GVmdDsgdmVydGljYWwtYW dvM351QQNsiDozDwPrSJF aAZ9anPmukLM+ ZD10wn79B9RpXnlrSwu3Y KGmTRR8vXH8zP2xLOLuLL zdb5K3tIY5C5WwlfCwui0 bb4xkAPEpQBpq L07wzYSyz7T5HNIiiIA8J LKgaGnrGgLnwM53Xiq+PG SfiImsv9AiPamrh4uhj9h ysGw2JyJiNATa ajFkmTfiJNE6t0MgWo20A 29sIHdpZHRoPSIzMCUiIH UkiXphmk6xqJ9rTu0+PGN uhGR9hSK2nS6x BrFcYiW2RVavS052UuIfz JVmTubdh7qfc1levLd9Mr AlCASkbqHghXdtUHK5e4A oIm77S5PfpVks v5SjXoe9bu63uGJhv4X2r EY2N8GdGIFqdgvorNAkjH hpFY3pVHSkplcuARWndI3 cBMJaG3l3FdMn ImW1HEeeU6FoqbF9PVEvf ZYsBTAtiOIHvP8mblyby2 ibqwwfYyTcNGHxMTn3GTd 0LWFsaWduOiBs QMX6ViE4HQS9zJAwvL8ay NwmyjozaQ5cOqn+UGh5c2 dstAAqOR2nmVQ6ZG32TY0 8lRUki9U1yRM5 M2JtJVWubkucyskvqEK5N FKfKKFjiA18Fa7lbWzmGi 3uZLAoWWQ2TQKwqXCeV9U bmE0zQxUlGMXg IKPnM2AccBEiBEftS251J MgeHeL6DHTrizEqI8VrJJ LzdXloCgI2g1D7Jz3YUR6 5YB29QN24qIHe g4E7sNC4U3KcDQXtbzggh zabvYD8CEPnBWFfbO52Sx 7dnHdtTp9lNWPhTUY0IWB jaPYqV9CwdO6i SjSxKMGpIILnS1LvoGOxH YlpN157QAdxNbB9JVXapz EhM6SbUKCenQsjRxL5n9O 4Id4RXg47QL25 WI10nJOiy8B1vUL7J1QgP WFrrnsoybkisEL3JSRtNJ GsbL84Ic0plWxkVe2zGBI gREY1IESnsELj B9FlvP0iLdBkJITnPHHnN 5CljKUrHUluH506LReqEu L4UGPietPhA2FmHIPsxOy dBlE6j4S8Hi4A DVfjkfj5Z1HsHigumYL+P X47RYJiZQ91tMNfoVQaa8 lzpLn1TjVqLIEeOZU5uBh dISddb6GuNTGp Y29s (more content not included)... Normal [facility] Coding Summary. CD:[id number]:[id number] G h0bWw+PGhlYWQ+NC3UTLP vA96peCWdyU5TT3dCRW4L MYBWXTEKDK7LYU0nqFE5B QluG1KoqbHp ElwhsOViHE43PWl8MMG8j PpqPMzpwM5bxSKgA9x1Wc ObUC53pP35CHmrTGFhQcW 3LjZpbjsgbWFy D2qnTnHgrYQzOcj+PHRhY mxlIHdpZHRoPScxMDAlJy OgmIwmOX4aGw6nFXMsMSB vbGxhcHNlOiBj c9jiRWDaHCpxIC4xzZilN 2GhcRX3EXHuz2u6Co83eS I+LPBsNZX4eMghQNfrf34 4BmMue8jjSIH2 aHZqWXlcLAD8B75hm2O9A HPoOJXhMZL7yEL1tT0ecY ipkegeQ3EfwQXdFwX3RWD 0gSBmoE4dkZjw dudmaC0uKzi+P67PCV9GN FDNRA0IEgn6O0PfHpxfqG I+UD95QSVqNR40zWBjvPN ig8gnlGu0BwTj OXNbSSV9nZjqYAhvq9JbK AZbO84xgVXvf8M9KKAqaX oncKIvUjYtyPX2cS5yWAt rfnwwf6hswwto Xkvyz9ndbj58oN21V43dJ TdiBOXmFPV4UKAuWPRvgJ eabs2swS2tXk0+WKpwv5y ii8bmhAy1VsUh FOTdbdSvlEstQUL8t0EoA j51F5UmqRksk3NcPzc0vr 94vICcp1F4wNJ1LNeaVTE nzW5rHQpdAtF1 FRHoSmNbfW29kGYtZHgfO c3smYtmeFneOH1aJLOdkv rnWOResU0eVVOjnZHvsYd yZY0vYIVzbaap m083QyKdXLE7JAVzcEVeT 3VoqL1yAhUxDKBlLRDoN7 PzlEGuYFqqZ473SBoqPuF 6EJCfxjDmJ1Ab BYDmeJgmAvR7s8R9Bg3Pr 9LyhzxqWYP7PErlCKAeGi GeQlJgQcB0L5SkGhj7GUN fbYbeIT1pJ7Il SMDovisrmqbpsDY0MRFqV VEofT02oXJhUPqvQr6ex5 X7t173OZRbANBcuO05Qf1 udDogMTBwdCBU dL7vnxden2cgvrxzSdRnE VHqSQj8LWw4NWFhlZyfPf FhOZV6FvT2JZL9aBPtiB8 nvOfyrcbcpT3s Oyc+V84jlS8wFBY4PVI7w jwnOVCtviOxRW04AT89F4 RyPjwvdGFibGU+PGRpdiB wqWtrSB8zOjAk e2jwq6UzKXhzI5WjEYRfQ CqoTiq4PQBtVTQ2sIJ6gY 5uTDNkCNddb2V5pGC8J6G ixjXnlo7qi9co ZKHoMRtvI90xvYYdz0F5S XTstEW6QQAuqPwuYsRgzC 93Oyc+MWZffUfom1NaUot sl8wdh8yykTe9 RfHcGGJyeiAnyZanIJH3b 5ZaVy12O54oHAthOWLpYX CqFDEfLPPocOrzyv1cgZ3 wIi8+PGNvbCB3 sJJ8wL9lPGSnNgH2DMpsI 715LaGjrNJsHlglc6ejy2 wriPr4GjKsHRAmqqMamXg eAYC7m1ZgOy89 X47sHHguQOVtYAIcYTYjA BUqaRknwm6zoG1qPl2+PC 0op2ozjf91sA26xVT+PHR kLRB2zExkUZzx RRAgpT1bOZkgHaY9FHLxL jOpvT98dWHnQNiiLd8vgO jpjZwqAX1rXHOyvvtgq83 2YcXpc3akMSEf rFYkUKwjCWG6C56qs5K6A MXwXGMbKLO2tJL0zP3wcS lnbjogbGVmdDsgdmVydGl jCRmgXQntG319 IHRvcDsnPlBhdGllbnQgT qWgTXt1R2GhTxy8LFKqpG ayUR7gjRCbQHwfNq4uhLb naOpsNW4eXAUk oxrdv164EmXkm0tuVDEts GUqJLmtXOK0O22ak7J8TC ZgPLThDZM0jZZ4bM3qqQa nbjogbGVmdDsg suKmaSjdITsgJMmxM306Y HRvcDsnPkJpcnRoIERhdG M5SH44IR44vFQgq3E1lAY 3W5GqDHAlilyw stpjmJD4DXXyTIJfwN55B b1cxQyxCk4cVTSjQYY1LC LfnXHlX2MoiZ8kSdTeBOG kIHDgX6TmjIZl IRpvX859LPvbXcE5DZOkb cNlH3RjATRegTloZbQ3c2 N6Zf4YD7A3UI24HR86mMU ed2Y4aLI5J2Et CGVuxarcgwehrHM6PVIbT UCciR82Mm8lwPdjIv3eOL YxCIC7LEQzlQWiG8WqoK9 yOiAjMDAwMDAw Z7SekEKzUTgqD442FCgeE oC9VCNeyrFmH5NoDPRmdD ldRvP6j4H4Nv6BXFe2SX1 2FM06lKSll8K5 jWE6K4YhJKNqxgsthzfji JZ3RKFdCGIuwF77Bv0ocA sbKv5jJQOpZKF1ZTRdlSL bU3RrxP3vEjSa KKCnSPUsV9YdiGXxCRbrA 719CWzsZkB4CPAovkOgI2 NnQJZduHoiCrQ6p3K4Ub5 YINMrJI41ELO2 eYL3KR50BV99C2AyXqcma GFibGU+PHRhYmxlIHdpZH RoPScxMDAlJyBzdHlsZT0 xQs6lOGAkONBi eCsfgVJsEeNep8czSQEmN ZwgUG4hlCbcV1SkfIJ3OD Bij0h7Xv68W43jC8PvbKH +RURdiIO9aPI9 hU0dAyXgLtP7OQdwX146U iZtlQTcXjvfm3lfk6rwxT x1FlJ7CSSoorAbqOdcORS 2v1JmIi38W30r IHdpZHRoPSIxNSUiIHZhb Bpixk1dyJ1oBo5+PGNvbC N8lEI4gL4xNfPcJxI4VMb xI108UnGbrDFi Irgko6dqw0sfrIr3QwZkZ NDinnPzfKedDZR0i2JcUk 15K5PxcBczo7BuBah0kz6 8gRYkp9T6wFP3 E3XwIQBqecqewSMzhPdyW B5hBWApzxzcEAHldU7yFF VlR4w1AhZuOvZ5WTvlE8E hygD7DBOdmBOe CRtjNMW0Q03nf4R6ZPHnQ YXgXRF3wEH5kC0dnMcswc ogbGVmdDsgdmVydGljYWw lKTatK360LHBd yFwtJGNbzP4mVADmyKOkn BkuNN9dERUohievBtDINS UBTOxhMGZUC3LIJWwVOHN gRzwvdGQ+PHRk IOW5cTdzANlePOAaeE0sQ RBjC4p9DkWgEiR7BPgpE0 NsHYRugxmxFe53rW2mRuS eIlH3BYjjI7Yw btY8FSZrwUNqWFdeKRF5Q 49mq8O0BGZqPJCmUKB7vA A8pA6xbZspipiodKMeaZu gdmVydGljYWwt FPtaP200LSXrbYfjGpEcS zW0BcG5QIF1C6PoTmj3QZ NuqRksNN1gjQAgFKzrCv0 raCrksWbuSF5u UPUseogyQHKyyZ5kRCQbp GEkiUpxZZ8fMQTrgjmun0 78UsIiVHK2OTFfeABsB0E bpW4gKoUlWWNa RYNrZ3JkrWRkSSoiU436M FmeYyK2JRXvykMoK9LdVK SmpRkpXwO8x0F2Vz9jNiD ZZWFyczwvdGQ+ WYTgEPD2qCxpQTfxUUJnu Y3rIGKhP6j7InFiKpN7TW bhP5VlDVSkhtasHx74wP1 aSkFySaY5IKsl J1CvqtF7HKKvtWKuFMnzI QL4R31iv8K3EVMnEYEoYN L9fYO6yZ0smJripojnvYU mdDsgdmVydGlj MZyaBFzyR282RLPjuBejE kZlbWFsZTwvdGQ+PHRkIH Q8rUtfJAnuPXDihB0cMOM lV9b5AyVlOiF2 SDfeW3NjXMTyoajoZa56h Y1oGrYrLmL0SEjwL5Udho S4PHTamTTiBYyqJJK4S70 hc0Y9UNKwDAIp WCG8vEC4lS3bzZuoaomrr GVmdDsgdmVydGljYWwtYW tmE784UCGikYaeWzMbDRI dYA2ftCjogPW+ KI87cx78O6ZeYlhxIsf2C ZUsECY9pDI4sN0dRKEiLU avi3D5bTU0T3YhveCsrf5 ww3fbGTSjUTnz A82xsHXcq0W0UCWwlSB5I MGkqUkeHvWliI45Bbj+PG ZfbLkkq5OdRnrkt3pnt6c nyZd4CyPqDIQr vnOwaMthZSO2w8WqYm07H 29sIHdpZHRoPSIzMCUiIH PhiLiqfw6lfE2oZj3+PGN hcGR9tNX2wP7r CtObDqB0FBcuP497LrMda TPbUnaie7zqb3zuwUf8Md ZbNHWhmePauSgxBOQ5c9N vVb21L7QgvQoa z3KbGwr6my17lIEru8J8s WB7F5PhVCZjhtbzeHIelY wgDN2vOMQjzecnJVHpqZ6 hFLJlQ2w5XiXc YmW8XCsuV1SrfhP3KHZcf EFpDKNmgPIXpE6piryda3 famjckWjEjNYNxQGn9SGf 0LWFsaWduOiBs KEP7WeG1XHQ7cWLnyW9qv PiuktzqjT5rHlh+UGh5c2 cgbGYlAR0aoXC8DS36FM0 1jBGgg8X6hOD0 Q5KrBDWjyddvfsbnxAV8D DHqMBLvcU66Ap3ldCjfEr 9tAQVoIMM6FQTgoYYmS5S gdN4nLeHmTSGh AKYoK8AqsOYtGEvxJ080O QqwGsH7FSIvngSsP9GmMS GovPspQjP9x2F7Xv7VQV1 1PC47II96fOAo s9L7hXA3B1PlWIKpqnjxt tyydSW3JDRnOODerM70Fs 1vwMqmNj7dLDPwFWR6UVF buIBrZ4EctK5r BqJoNYUuEZLyB1JykBUvM UsjF040HLhoVzC2WAYfrm GmW5GkCWHecYkiUpQ6h9M 1Nl2GRz23XZ22 VK82aHStd8S2lTH2E5CfY COakowjcwoeyZU8OOInDQ QmxP44Lb7rrUsqHa5aSJT jLWI5FSClmJHp R7BfvC8lDgUqRGNcYDHpV 7MbtGVzREruW959WDkwCb V6WUYbywXzO9WaTUJktIp sOfD3p1M4Rz7B KTiygge5T0LdSwydnZX+P K85ZKTcSG71rXFwrNPbi4 wjpCy8QwJjHAJnWPC3qVr sILhdc4DeBITx Y29s (more content not included)... [facility] ED Note-Physicianon 04-16-20 ED Note-Physician Basic Information Time Seen: Robinson Galvan PA-C 04/14/2022 14:53 Chief Complaint pt c/o allergic reaction to possibly motrin. pt was having swelling and redness in the face and tongue. ppt c/o sob. 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 History of Present Illness 31-year-old female [...] Mark Pitts In 3 days 04/17/[address] [place] [phone] (1) Additional Instructions: Patient Education Anaphylactic Reaction, Adult Attestation Patient seen (more content not included)... [facility] Comment on above: Result Comment: Elec tronically Signed By: Robinson Galvan PA-C\.br\Date and Time Signed: 04/14/22 18:33 EDT\.br\Electronically Co-Signed By: Saúl Gaspar MD\.br\Date and Time Co-Signed: 04/15/22 23:22 EDT Consent for Treatmenton Consent for Treatment [id number] .00CD:127 Normal [facility] Discharge Instructionson Discharge Instructions [id number]# 1.00CD:127 Normal [facility] ED Clinical Summaryon 2021 ED Clinical Summary [place] [address] ED Clinical Summary Person Information Name: RJ ELENA Calista/[facility] Age: 31 Years : 1990 Sex: Female Language: Hebrew PCP: Mark Pitts DO Marital Status: Single Phone: [phone] Visit Id: Visit Reason: Allergic reaction - [...] 04/14/2022 19:42:49 04/14/2022 19:42:49 04/14/2022 19:42:49 ADDRESS: [address] [place] [phone] PHYS DOC NOTES: MEDICAL INFORMATION: Prescriptions Given: New Medications [facility] 1986, [address] [place], [place] [id number], [phone] epinephrine (EpiPen 2-Ze 0.3 mg injectable kit) 1 Each Intramuscular As Directed. May substitute for another brand if required by insurance or inventory. Refills: 0. famotidine (Pepcid 40 mg Tab) 1 Tablets By Mouth once a day (at bedtime) for 7 Days. Refills: 0. Medications to Continue Taking That Have Changed [facility] 1986, [address] [place], [place] [id number], [phone] START: predniSONE (predniSONE 20 mg Tab) 3 [...] Anaphylactic Reaction, Adult Follow up: With: Address: [facility]: [place] [id number] Business (1) In 3 days 04/17/2022 DIAGNOSIS: 1:Anaphylaxis Normal [facility] ED Patient Education Noteon 04-14-2022 ED Patient [...] Symptoms of anaphylaxis may include: ? 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 This may include redness. [...] have hives or rash: ? Use an nuxa-moe-hcxevmo antihistamine as told by your health care provider. ? Apply cold, wet cloths (cold compresses) to your skin or take baths or showers in cool water. Avoid hot water. ? Take xlzk-kfy-sojwalp and prescription medicines only as told by your health care provider. ? Tell all your health care providers that you have an allergy. ? Keep all follow-up visits as told by your health care provider. This is important. How is this prevented? ? Avoid allergens that have caused an anaphylactic reaction in the past. ? When you are at a restaurant, tell your prospecting observer that you have an allergy. If you are not sure whether a menu item contains an ingredient that you are allergic to, ask your prospecting observer. Where to find more information ? [employer]: aaaai.org ? [employer]: healthychildren.org Get help right [...] medicine s (more content not included)... Normal [facility] ED Patient Summaryon 022 ED Patient Summary [address] [address] Patient Discharge Instructions Person Information Name: RJ ELENA Age: 31 Years Arrival Date: 04/14/2022 14:45:02 Discharge Diagnosis: 1:Anaphylaxis Primary Care Physician: Mark Pitts DO Provider Information Primary Provider: Saúl Gaspar MD Advanced Records Management Specialist:Robinson Galvan PA-C The exam and treatment you received in the Emergency Department were for an urgent problem and are not intended as complete care. It is important that you follow up with a doctor, nurse practitioner, or physician?s field assistant for ongoing care. If your symptoms [...] Follow-up Instructions: With: Address: When: Mark Pitts [address] [place] [address] Business (1) In 3 days 04/17/2022 In the event that this physician does not participate in your insurance network, please consult with your insurance company to find a nearby participating provider. Patient Education Materials: Anaphylactic Reaction, Adult A MESSAGE TO ALL PATIENTS REGARDING OPIOIDS PRESCRIPTION OPIOIDS: WHAT YOU NEED TO KNOW Prescription opioids can be used to help relieve sftudpvi-aw-vhtbrv pain and are often prescribed following a [...] struggling with addiction, tell your health care tech and ask for guidance or call [facility]S National Helpline at 8-655-475-WOLU. v Source (more content not included)... Normal [facility] Covid-19 PCR (CVDTBH)on SARS-CoV-2 (COVID-19) RNA YARELY+probe Ql (Unsp spec) Detected Critically abnormal NOT DETECTED [facility] Comment on above: Result Comment: This test is not yet approved or cleared by the [place] FDA. When there are no FDA-approved or cleared tests available, and other criteria are met, FDA can make tests available under an emergency access mechanism called an Emergency Use Authorization (EUA). The EUA for this test is supported by the [place] of Health and Human Service's (HHS's) [...] longer be used). Performed By: #### C [facility] #### [facility] [address] [place] [address] Dr. Tj Wild CBC AUTO DIFFon 07-05-2021 BASO # 0.0 103/ul Normal 0.0-0.1 [facility] Comment on above: Performed By: #### C BC #### [facility] [address] [place] [address] Dr. Tj Wild Basophils/100 WBC (Bld) 0.1 % Critically low 0.2-2.0 [facility] Comment on above: Performed By: #### C BC #### [facility] [address] [place] [address] Dr. Tj Wild EO # 0.0 103/ul Normal 0.0-0.7 [facility] Comment on above: Performed By: #### C BC #### [facility] [address] [place] [address] Dr. Tj Wild Eosinophils/100 WBC (Bld) 0.0 % Critically low 0.9-7.0 [facility] Comment on above: Performed By: #### C BC #### [facility] [address] [place] [address] Dr. Tj Wild Erythrocyte distribution width (RBC) [Ratio] 17.2 % Critically high 11.0-15.0 [facility] Comment on above: Performed By: #### C BC #### [facility] [address] [place] [address] Dr. Tj Wild Hematocrit (Bld) [Volume fraction] 36.3 % Normal 36.0-48.0 [facility] Comment on above: Performed By: #### C BC #### [facility] [address] [place] [address] Dr. Tj Wild Hemoglobin (Bld) [Mass/Vol] 12.3 g/dL Normal 12.0-16.0 [facility] Comment on above: Performed By: #### C BC #### [facility] [address] [place] [address] Dr. Tj Wild IG # 0.08 10e3/ul Critically high 0.00-0.03 [facility] Comment on above: Performed By: #### C BC #### [facility] [address] [place] [address] Dr. Tj Wild IG % 0.5 % Normal 0.0-0.5 [facility] Comment on above: Performed By: #### C BC #### [facility] [address] [place] [address] Dr. Tj Wild LYMPH # 2.2 103/ul Normal 1.2-3.8 [facility] Comment on above: Performed By: #### C BC #### [facility] [address] [place] [address] Dr. Tj Wild Lymphocytes/100 WBC (Bld) 13.8 % Critically low 20.5-60.0 [facility] Comment on above: Performed By: #### C BC #### [facility] [address] [place] [address] Dr. Tj Wild MANUAL DIFF REQ NO Normal [facility] Comment on above: Performed By: #### C BC #### [facility] [address] [place] [address] Dr. Tj Wild MCH (RBC) [Entitic mass] 26.6 pg Critically low 26.7-34.0 [facility] Comment on above: Performed By: #### C BC #### [facility] [address] [place] [address] Dr. Tj Wild MCHC (RBC) [Mass/Vol] 33.9 g/dL Normal 29.9-35.2 [facility] Comment on above: Performed By: #### C BC #### [facility] [address] [address] [address] Tj Wild MCV (RBC) [Entitic vol] 78.4 fL Critically low 81.0-99.0 [facility] Comment on above: Performed By: #### C BC #### [facility] [address] [place] [address] [address] Tj Wild MONO # 0.7 103/ul Normal 0.3-0.8 [facility] Comment on above: Performed By: #### C BC #### [facility] [address] [place] [address] [address] Tj Wild Monocytes/100 WBC (Bld) 4.6 % Normal 1.7-12.0 [facility] Comment on above: Performed By: #### C BC #### [facility] [address] [place] [address] [address] Tj Wild NEUT # 12.9 103/ul Critically high 1.4-6.5 [facility] Comment on above: Performed By: #### C BC #### [facility] [address] [place] [address] [address] Tj Wild Neutrophils/100 WBC (Bld) 81.0 % Critically high 43.0-75.0 [facility] Comment on above: Performed By: #### C BC #### [facility] [address] [address] [address] Tj Wild Platelet mean volume (Bld) [Entitic vol] 10.3 fL Normal 9.5-13.5 [facility] Comment on above: Performed By: #### C BC #### [facility] [address] [place] [address] Dr. Tj Wild PLT 254 103/ul Normal 150-450 [facility] Comment on above: Performed By: #### C BC #### [facility] [address] [address] [address] Tj Wild RBC 4.63 106/ul Normal 4.20-5.40 [facility] Comment on above: Performed By: #### C BC #### [facility] [address] [place] [address] Dr. Tj Wild WBC 16.0 103/ul Critically high 4.0-11.0 [facility] Comment on above: Performed By: #### C BC #### [facility] [address] [place] [address] Dr. Tj Wild Covid-19 PCR ([facility])on 06-10 SARS-CoV-2 (COVID-19) RNA YARELY+probe Ql (Unsp spec) Not detected Normal NOT DETECTED [facility] Comment on above: Result Comment: [...] for this test is supported by the [employer] Assistant of Health and Human Service's declaration that [...] used). Performed By: #### C VDTBH #### [facility] [address] [place] [address] Dr. Tj Wild D-DIMERon 07-05-2021 D-DIMER 6.07 mg/L FEU Critically high 0.19-0.50 [facility] Comment on above: Performed By: #### D DIM #### [facility] [address] [place] [address] Dr. Tj Wild D-DIMER COMMENTS SEE BELOW Normal [facility] Comment on above: Result Comment: Incr eases [...] hospitalization. Performed By: #### D DIM #### [facility] [address] [place] [address] Dr. Tj Wild PREG HCG QUALon 07-05-2021 , QUAL Negative Normal NEGATIVE [facility] Comment on above: Performed By: #### P REG #### [facility] [address] [place] [address] Dr. Tj Wild PROF 14(COMP METB)on 021 Albumin [Mass/Vol] 3.5 g/dL Normal 3.5-5.0 [facility] Comment on above: Performed By: #### H STROPN, CMP #### [facility] [address] [place] [address] Dr. Tj Wild Albumin/Globulin [Mass ratio] 1.1 {ratio} Normal [facility] Comment on above: Performed By: #### H STROPN, CMP #### [facility] [address] [place] [address] Dr. Tj Wild ALP [Catalytic activity/Vol] 56 U/L Normal 38-126 [facility] Comment on above: Performed By: #### H STROPN, CMP #### [facility] [address] [place] [address] Dr. Tj Wild ALT [Catalytic activity/Vol] 21 U/L Normal 9-52 [facility] Comment on above: Performed By: #### H STROPN, CMP #### [facility] [address] [place] [address] Dr. Tj Wild Anion gap [Moles/Vol] 14.4 mmol/L Normal [facility] Comment on above: Performed By: #### H STROPN, CMP #### [facility] [address] [place] [address] [address] Tj Wild AST [Catalytic activity/Vol] 27 U/L Normal 14-36 [facility] Comment on above: Performed By: #### H STROPN, CMP #### [facility] [address] [place] [address] Dr. Tj Wild Bilirubin [Mass/Vol] 0.5 mg/dL Normal 0.2-1.3 [facility] Comment on above: Performed By: #### H STROPN, CMP #### [facility] [address] [place] [address] Dr. Tj Wild Calcium [Mass/Vol] 8.7 mg/dL Normal 8.4-10.[address] [facility] Comment on above: Performed By: #### H STROPN, CMP #### [facility] [address] [place] [address] Dr. Tj Wild Chloride [Moles/Vol] 101 mmol/L Normal 98-107 [facility] Comment on above: Performed By: #### H STROPN, CMP #### [facility] [address] [place] [address] Dr. Tj Wild CO2 [Moles/Vol] 26.3 mmol/L Normal 22.0-30.0 [facility] Comment on above: Performed By: #### H STROPN, CMP #### [facility] [address] [place] [address] Dr. Tj Wild Creatinine [Mass/Vol] 0.89 mg/dL Normal 0.52-1.04 [facility] Comment on above: Performed By: #### H STROPN, CMP #### [facility] [address] [place] [address] Dr. Tj Wild EGFR-AF BRAZILIAN >60 Normal >=60 [facility] Comment on above: Performed By: #### H STROPN, CMP #### [facility] [address] [place] [address] Dr. Tj Wild EGFR-NON AF BRAZILIAN >60 Normal >=60 [facility] Comment on above: Performed By: #### H STROPN, CMP #### [facility] [address] [address] [address] Tj Wild Globulin (S) [Mass/Vol] 3.3 g/dL Normal [facility] Comment on above: Performed By: #### H CESARPN, CMP #### [facility] [address] [address] [address] Tj Wild Glucose [Mass/Vol] 116 mg/dL Critically high 74-106 [facility] Comment on above: Performed By: #### H STROPN, CMP #### [facility] [address] [place] [address] Dr. Tj Wild Potassium [Moles/Vol] 3.7 mmol/L Normal 3.4-5.0 [facility] Comment on above: Performed By: #### H CESARPN, CMP #### [facility] [address] [place] [address] Dr. Tj Wild Protein [Mass/Vol] 6.8 g/dL Normal 6.1-8.2 [facility] Comment on above: Performed By: #### H STROPN, CMP #### [facility] [address] [place] [address] Dr. Tj Wild Sodium [Moles/Vol] 138 mmol/L Normal 137-145 [facility] Comment on above: Performed By: #### H STROPN, CMP #### [facility] [address] [address] [address] Tj Wild Urea nitrogen [Mass/Vol] 20.0 mg/dL Critically high 7.0-17.0 [facility] Comment on above: Performed By: #### H STROPN, CMP #### [facility] [address] [place] [address] Dr. Tj Wild Urea nitrogen/Creatinine [Mass ratio] 22.5 mg/mg Normal [facility] Comment on above: Performed By: #### H CESARPN, CMP #### [facility] [address] [place] [address] Dr. Tj Wild TROPONIN, HIGH SENSITIVITYon 07-05-2021 HSTROP 10.4 pg/mL Normal 4.0-35.5 [facility] Comment on above: Result Comment: CUT- OFF POINTS HAVE BEEN ESTABLISHED BASED ON THE FOURTH UNIVERSAL DEFINITIONS OF MYOCARDIAL INFARCTION. THE UPPER REFERENCE LIMIT (URL) OF TROPONIN, DEFINED THE 99TH PERCENTILE OF cTnI DISTRIBUTION IN A REFERENCE POPULATION, HAS BEEN CONFIRMED THE DECISION THRESHOLD FOR IA DIAGNOSIS. Performed By: #### H VALENTINE, CMP #### [facility] [address] [address] [address] Tj Wild XR CHEST 1 Von [...] by: Cassius MCKEON Date: 2021-07-05 20:35 Normal [facility] Vital Signs Date Time Vital Sign Value Performing Clinician Facility 08-21-2023 11:12-0500 Body mass index (BMI) [Ratio] 32.95 kg/m2 Bhumika COKER Work Phone: [facility] 08-21-2023 11:12-050 Body weight 84.37 kg Bhumika COKER Work Phone: [facility] 08-21-2023 11:12-0500 Diastolic blood pressure 60 mm[Hg] Bhumika COKER Work Phone: [facility] 08-21-2023 11:12-0500 Systolic blood pressure 110 mm[Hg] Bhumika COKER Work Phone: [facility] 02-26-2023 15:56-0400 Body temperature 98.78 [degF] Charlie Rubalcava [facility] 02-26-2023 15:56-0400 Diastolic blood pressure 76 mm[Hg] Charlie Rubalcava [facility] 02-26-2023 15:56-0400 Heart rate 107 /min Charlie Rubalcava [facility] 02-26-2023 15:56-0400 Respiratory rate 16 /min Charlie Rubalcava [facility] 02-26-2023 15:56-0400 SaO2% (BldA) [Mass fraction] 98 % Charlie Rubalcava [facility] 02-26-2023 15:56-0400 Systolic blood pressure 115 mm[Hg] Charlie Rubalcava [facility] 12-31-2022 10:16-0400 Body temperature 98.24 [degF] Javier Woods [facility] 12-31-2022 10:16-0400 Diastolic blood pressure 82 mm[Hg] Javier Reynae [facility] 12-31-2022 10:16-0400 Heart rate 90 /min Javier Woods [facility] 12-31-2022 10:16-0400 Respiratory rate 18 /min Javier Woods [facility] 12-31-2022 10:16-0400 SaO2% (BldA) [Mass fraction] 99 % Javier Woods [facility] 12-31-2022 10:16-0400 Systolic blood pressure 129 mm[Hg] Javier Peggy [facility] 12-30-2022 13:13-0400 Body temperature 98.06 [degF] Javier Peggy [facility] 12-30-2022 13:13-0400 Diastolic blood pressure 75 mm[Hg] Javier Peggy [facility] 12-30-2022 13:13-0400 Heart rate 88 /min Javier Peggy [facility] 12-30-2022 13:13-0400 Respiratory rate 16 /min Javier Woods [facility] 12-30-2022 13:13-0400 SaO2% (BldA) [Mass fraction] 96 % Javier Woods [facility] 12-30-2022 13:13-0400 Systolic blood pressure 125 mm[Hg] Javier Woods [facility] 12-21-2022 13:35-0400 Body temperature 98.24 [degF] Charlie Rubalcava [facility] 12-21-2022 13:35-0400 Diastolic blood pressure 77 mm[Hg] Charlie Khadar [facility] 12-21-2022 13:35-0400 Heart rate 93 /min Charlie Rubalcava [facility] 12-21-2022 13:35-0400 Respiratory rate 18 /min Charlie Khadar [facility] 12-21-2022 13:35-0400 SaO2% (BldA) [Mass fraction] 99 % Charlie Rubalcava [facility] 12-21-2022 13:35-0400 Systolic blood pressure 128 mm[Hg] Charlie Khadar [facility] 09-05-2022 22:53-0500 Diastolic blood pressure 63 mm[Hg] Kaylinn Dokken [facility] 09-05-2022 22:53-0500 Heart rate 93 /min Kaylinn Dokken [facility] 09-05-2022 22:53-0500 Mean blood pressure 80 mm[Hg] Kaylinn Dokken [facility] 09-05-2022 22:53-0500 Respiratory rate 20 /min Kaylinn Dokken [facility] 09-05-2022 22:53-0500 SaO2% (BldA) [Mass fraction] 95 % Kaylinn Dokken [facility] 09-05-2022 22:53-0500 Systolic blood pressure 114 mm[Hg] Kaylinn Dokken [facility] 09-05-2022 21:45-0500 Diastolic blood pressure 60 mm[Hg] Kaylinn Dokken [facility] 09-05-2022 21:45-0500 Heart rate 97 /min Kaylinn Dokken [facility] 09-05-2022 21:45-0500 Mean blood pressure 80 mm[Hg] Kaylinn Dokken [facility] 09-05-2022 21:45-0500 Respiratory rate 16 /min Kaylinn Dokken [facility] 09-05-2022 21:45-0500 SaO2% (BldA) [Mass fraction] 93 % Kaylinn Dokken [facility] 09-05-2022 21:45-0500 Systolic blood pressure 119 mm[Hg] Kaylinn Dokken [facility] 09-05-2022 21:03-0500 Body temperature 97.52 [degF] Kaylinn Dokken [facility] 09-05-2022 21:03-0500 Diastolic blood pressure 56 mm[Hg] Kaylinn Dokken [facility] 09-05-2022 21:03-0500 Heart rate 115 /min Kaylinn Dokken [facility] 09-05-2022 21:03-0500 Respiratory rate 32 /min Quita Clark [facility] 09-05-2022 21:03-0500 SaO2% (BldA) [Mass fraction] 95 % Quita Clark [facility] 09-05-2022 21:03-0500 Systolic blood pressure 123 mm[Hg] Quita Clark [facility] 04-14-2022 19:00-0400 Diastolic blood pressure 70 mm[Hg] Saúl Hubert [facility] 04-14-2022 19:00-0400 Heart rate 91 /min Saúl Hubert [facility] 04-14-2022 19:00-0400 Mean blood pressure 83 mm[Hg] Saúl Hubert [facility] 04-14-2022 19:00-0400 Respiratory rate 14 /min Saúl Hubert [facility] 04-14-2022 19:00-0400 SaO2% (BldA) [Mass fraction] 96 % Saúl Hubert [facility] 04-14-2022 19:00-0400 Systolic blood pressure 110 mm[Hg] Saúl Hubert [facility] 04-14-2022 18:22-0400 Diastolic blood pressure 64 mm[Hg] Saúl Hubert [facility] 04-14-2022 18:22-0400 Heart rate 87 /min Saúl Hubert [facility] 04-14-2022 18:22-0400 Mean blood pressure 76 mm[Hg] Saúl Hubert [facility] 04-14-2022 18:22-0400 Respiratory rate 20 /min Saúl Hubert [facility] 04-14-2022 18:22-0400 SaO2% (BldA) [Mass fraction] 95 % Saúl Hubert [facility] 04-14-2022 18:22-0400 Systolic blood pressure 100 mm[Hg] Saúl Hubert [facility] 04-14-2022 17:00-0400 Diastolic blood pressure 61 mm[Hg] Saúl Hubert [facility] 04-14-2022 17:00-0400 Respiratory rate 19 /min Saúl Hubert [facility] 04-14-2022 17:00-0400 SaO2% (BldA) [Mass fraction] 93 % Saúl Hubert [facility] 04-14-2022 17:00-0400 Systolic blood pressure 105 mm[Hg] Saúl Hubert [facility] 04-14-2022 15:35-0400 Heart rate 92 /min Saúl Hubert [facility] 04-14-2022 15:35-0400 Respiratory rate 16 /min Saúl Hubert [facility] 04-14-2022 14:48-0400 Body temperature 98.06 [degF] Saúl Hubert [facility] 04-14-2022 14:48-0400 Heart rate 113 /min Saúl Hubert [facility] 04-14-2022 14:48-0400 Respiratory rate 18 /min Saúl Hubert [facility] 11-19-2021 19:00-0400 Hourly Rounding Javier Woods [facility] 11-19-2021 19:00-0400 Promise to Return Javier Peggy [facility] 11-19-2021 18:45-0400 Diastolic blood pressure 64 mm[Hg] Javier Peggy [facility] 11-19-2021 18:45-0400 Heart rate 85 /min Javier Peggy [facility] 11-19-2021 18:45-0400 Mean blood pressure 76 mm[Hg] Javier Peggy [facility] 11-19-2021 18:45-0400 Respiratory rate 16 /min Javier Peggy [facility] 11-19-2021 18:45-0400 SaO2% (BldA) [Mass fraction] 98 % Javier Peggy [facility] 11-19-2021 18:45-0400 Systolic blood pressure 100 mm[Hg] Javier Peggy [facility] 11-19-2021 18:15-0400 Diastolic blood pressure 70 mm[Hg] Javier Peggy [facility] 11-19-2021 18:15-0400 Heart rate 84 /min Javier Reynae [facility] 11-19-2021 18:15-0400 Mean blood pressure 85 mm[Hg] Javier Peggy [facility] 11-19-2021 18:15-0400 Respiratory rate 16 /min Javier Peggy [facility] 11-19-2021 18:15-0400 SaO2% (BldA) [Mass fraction] 96 % Javier Peggy [facility] 11-19-2021 18:15-0400 Systolic blood pressure 114 mm[Hg] Javier Peggy [facility] 11-19-2021 17:45-0400 Diastolic blood pressure 71 mm[Hg] Javier Woods [facility] 11-19-2021 17:45-0400 Heart rate 86 /min Javier Woods [facility] 11-19-2021 17:45-0400 Mean blood pressure 81 mm[Hg] Javier Woods [facility] 11-19-2021 17:45-0400 Respiratory rate 16 /min Javier Woods [facility] 11-19-2021 17:45-0400 SaO2% (BldA) [Mass fraction] 97 % Javier Woods [facility] 11-19-2021 17:45-0400 Systolic blood pressure 102 mm[Hg] Javier Woods [facility] 11-19-2021 15:45-0400 Blood Pressure Location Javier Woods [facility] 11-19-2021 15:22-0400 Body temperature 98.24 [degF] Javier Woods [facility] 11-19-2021 15:22-0400 Heart rate 111 /min Javier Woods [facility] Encounters Encounter Date Encounter Type Care Provider Facility Start: 09-19-2023 End: 09-19-2023 ambulatory BHUMIKA MO Not Available Start: 09-04-2023 End: 09-04-2023 ambulatory BRODERICK LIYA Not Available Start: 08-22-2023 Clinisync Result Encounter Bhumika COKER Work Phone: [facility] External [facility] Unsolicited Start: 08-22-2023 Clinisync Result Encounter Bhumika COKER Work Phone: [facility] Unsolicited Start: 08-21-2023 End: 08-21-2023 ambulatory BHUMIKA MO Not Available Start: 08-21-2023 End: 08-21-2023 Office outpatient visit 15 minutes Bhumika COKER Work Phone: [facility] Comment on above: Third trimester preg baltazar; Diabetes mellitus screening; BV (bacterial vaginosis); Nausea Start: 07-20-2023 End: 07-20-2023 ambulatory BRODERICK LIYA Not Available Start: 06-15-2023 End: 06-15-2023 ambulatory BHUMIKA MO Not Available Start: 02-26-2023 End: 02-26-2023 Emergency department patient visit Charlie Rubalcava Facility:[facility] Start: 02-26-2023 End: 02-26-2023 Emergency department patient visit Charlie Rubalcava [facility] Start: 01-30-2023 End: 01-31-2023 ambulatory Willa ANDERSON Facility:[facility] Start: 12-31-2022 End: 12-31-2022 Emergency department patient visit Javier Woods Facility:[facility] Start: 12-31-2022 End: 12-31-2022 Emergency department patient visit Javier Woods [facility] Start: 12-30-2022 End: 12-30-2022 Emergency department patient visit Javier Woods Facility:[facility] Start: 12-30-2022 End: 12-30-2022 Emergency department patient visit Javier oWods [facility] Start: 12-26-2022 End: 12-27-2022 ambulatory John IVANHOE Facility:[facility] Start: 12-21-2022 End: 12-21-2022 Emergency department patient visit Charlie Rubalcava Facility:[facility] Start: 12-21-2022 End: 12-21-2022 Emergency department patient visit Charlie Rubalcava [facility] Start: 12-15-2022 End: 12-16-2022 ambulatory John MALONEY Facility:[facility] Start: 09-05-2022 End: 09-06-2022 Emergency department patient visit Quita Clark Facility:[facility] Start: 09-05-2022 End: 09-05-2022 Emergency department patient visit Quita Clark [facility] Start: 09-04-2022 End: 09-04-2022 Emergency department patient visit Solo Kimble Facility:[facility] Start: 07-27-2022 End: 07-27-2022 Emergency department patient visit Saúl Gaspar Facility:[facility] Start: 04-14-2022 End: 04-14-2022 Emergency department patient visit Saúl Gaspar Facility:[facility] Start: 04-14-2022 End: 04-14-2022 Emergency department patient visit Saúl Gaspar [facility] Start: 01-13-2022 End: 01-13-[address] HOLLIE RUBI Facility: Start: 11-19-2021 End: 11-19-2021 Emergency department patient visit Javier Woods [facility] Start: 07-05-2021 End: 07-06-2021 ambulatory PHILLIP LORA [...] AM EST Routine [facility] [address] [place] [id number] Broderick Nickerson, [address] [place] [address] [facility] Start: 08-21-2023 End: 08-21-2024 CBC panel - Blood by Automated count CBC Lab Routine Diabetes mellitus screening Expected: 08/21/2023 (Approximate), Expires: 08/21/2024 [facility] Work Phone: Comment on above: Expected: 08/21/2023 (Approximate), Expires: 08/21/2024 Start: 08-21-2023 End: 08-21-2024 Measurement of glucose 1 hour after glucose challenge for glucose tolerance test Glucose tolerance, 1 hour Lab Routine Diabetes mellitus screening Expected: 08/21/2023 (Approximate), Expires: 08/21/2024 [facility] Comment on above: Expected: 08/21/2023 (Approximate), Expires: 08/21/2024 Payers Date Payer Category Payer Medicaid [employer] [facility] [place] [id number] 2022-Present [address] [address] [place] [address] [id number] 1990 Unknown [id number] 2.16.840.1.004469.3.579.2.593 1990 Unknown [id number] 2.16.840.1.468887.3.579.2.593 1990 Unknown [id number] 2.16.840.1.000677.3.579.2.727 1990 Unknown [id number] 2.16.840.1.117058.3.579.2.727 1990 Unknown [id number] 2.16.840.1.995564.3.579.2.727 1990 Unknown [id number] 2.16.840.1.026443.3.579.2.727 1990 Unknown [id number] 2.16.840.1.647508.3.579.2.727 1990 Unknown [id number] 2.16.840.1.037783.3.579.2.727 1990 Unknown [id number] 2.16.840.1.121781.3.579.2.727 1990 Unknown [id number] 2.16.840.1.634319.3.579.2.727 1990 Unknown [id number] 2.16.840.1.156537.3.579.2.727 1990 Unknown [id number] 2.16.840.1.901164.3.579.2.727 1990 Unknown [id number] 2.16.840.1.138735.3.579.2.727 1990 Unknown [id number] 2.16.840.1.997038.3.579.2.1259 1990 Unknown [id number] 2.16.840.1.547029.3.579.2.1259 1990 Unknown [id number] 2.16.840.1.259721.3.579.2.1259 1990 Unknown [id number] 2.16.840.1.421931.3.579.2.1259 1990 Unknown [id number] 2.16.840.1.163111.3.579.2.1259 1959 Unknown [id number] Self-pay Social History Date Type Detail Facility Tobacco Cigarettes [facility] Comment on above: 1 ppd Sex Assigned At Female [facility] Start: 04-14-2022 Tobacco smoking status Heavy tobacco smoker (finding) [facility] Tobacco smoking status NHIS Tobacco smoking consumption unknown [facility] Start: 02-14-2023 [facility] Start: 1990 Sex Assigned At Not on file [facility] Functional Status Date Assessment Result Facility 02-26-2023 Functional Status N/A [facility] 12-31-2022 Functional Status N/A [facility] 12-30-2022 Functional Status N/A [facility] 12-21-2022 Functional Status N/A [facility] 09-05-2022 Functional Status N/A [facility] 04-14-2022 Functional Status N/A [facility] Clinical Notes 07-06-2021 to 08-21-2023 JOHN [...] JOHN PAUL Ardon documented in this encounter [facility] 02-26-2023 Hospital Discharg e instructions Patient [...] condition. Follow these instructions at home: Take cgmy-mue-ofcrrka and prescription medicines only as told by [...] and water are not available, use hand admitting interviewer. Avoid contact with people who have cold [...] it is easier to cough up. Take muax-wli-xoclpkv and prescription medicines only as told by [...] provider. Document Revised: 10/27/2021 Document Reviewed: 10/27/2021 [employer] Patient Education 2022 [employer]. Follow Up Care 02/26/2023 15:53:57 With:Mark Pitts Address: [address] [place] [phone]- Business (1) When:03/01/2023 17:54:59 Comments:Call the office [...] any new or worsening symptoms. [facility] 02-26-2023 Evaluation + Plan note Extrac kathi from: Title:ED Note Author:Juan Ott PA-C e:02/26/23 Bronchitis (J40: Bronchitis, not specified as acute or chronic) Upper respiratory infection (J06.9: Acute upper respiratory infection, unspecified) Orders: albuterol, 2 puff(s), Inhalation, q4hr for 7 day(s), 8.5 gm, Refill(s) 0, [facility] 1985, 160, cm, 02/26/23 15:59:00 EDT, Height/Length Dosing, 85.6, kg, 02/26/23 15:59:00 EDT, Weight Dosing brompheniramine/dextromethorphan/PSE, 5 mL, Oral, QID for cold symptoms, 200 mL, Refill(s) 0, [facility] 1985, 160, cm, 02/26/23 15:59:00 EDT, Height/Length Dosing, 85.6, kg, 02/26/23 15:59:00 EDT, Weight Dosing guaifenesin, 600 mg = 1 tab(s), Oral, q12hr, X 7 day(s), # 14 tab(s), Refills(s) 0, Pharmacy: [facility] 1985, 160, cm, 02/26/23 15:59:00 EDT, Height/Length Dosing, 85.6, kg, 02/26/23 15:59:00 EDT, Weight Dosing predniSONE, 60 mg = 3 tab(s), Oral, Daily, X 5 day(s), # 15 tab(s), Refills(s) 0, Pharmacy: [facility] 1986, 160, cm, 02/26/23 15:59:00 EDT, Height/Length Dosing, 85.6, kg, 02/26/23 15:59:00 EDT, Weight Dosing Rapid COVID Antigen ([facility]) [facility]06-24-2023 Hospital Discharge instructions Patient Education 12/31/2022 10:41:35 [...] if you start to feel better. Take tenq-hng-ukmfmgb and prescription medicines only as told by [...] provider. Document Revised: 09/08/2021 Document Reviewed: 09/08/2021 [employer] Patient Education 2022 [employer]. Follow Up Care 12/31/2022 10:02:50 With:Mark Galeton Address: [address] [place] [phone]- Business (1) When:01/03/2023 10:36:17 Comments:Follow-up with your primary care provider in 3 to 5 days. If symptoms worsen, do not improve, or new symptoms arise please report back to emergency department for further evaluation. [facility] Hospital Discharge instructions Follow Up Care 12/30/2022 13:07:17 With:Mark Pitts Address: [address] [place] [phone]- Business (1) When:Within 3 Day(s) [facility]06-23-2023 Evaluation + Plan noteExtracted from: Title:ED Note Author:Javier Woods DO Date:6/2 3/23 Otitis externa, left (H60.92 : Unspecified otitis externa, left ear) Orders: ciprofloxacin-dexamethasone otic, 5 drop(s), Otic, BID for 7 day(s), 7.5 mL, Refill(s) 0, [facility] 1985, 160, cm, 12/30/22 13:14:00 EDT, Height/Length Dosing, 85.6, kg, 12/30/22 13:14:00 EDT, Weight Dosing [facility]06-14-2023 Hospital Discharge instructions Patient Education 12/21/2022 14:54:11 [...] or swathi your foot. General instructions Take kdwc-cte-lbuqlae and prescription medicines only as told by [...] provider. Document Revised: 10/16/2020 Document Reviewed: 10/16/2020 [employer] Patient Education 2022 [employer] 12/21/2022 14:54:11 Elastic Bandage and RICE Therapy [...] limityour activities and whether you should start pzext-js-bbthwn exercises for your injury. Ice Ice your [...] provider. Document Revised: 08/21/2020 Document Reviewed: 03/16/2018 [employer] Patient Education 2020 [employer]. 12/21/2022 14:54:11 Ankle Sprain, Phase II Rehab [...] by your health care provider. Stretching and dtmff-jr-cckzsd exercises These exercises warm up your muscles [...] provider. Document Revised: 08/19/2021 Document Reviewed: 08/19/2021 [employer] Patient Education 2022 [employer] 12/21/2022 14:54:11 Ankle Sprain, Phase I Rehab [...] told by your healthcare provider. Stretching and toeix-kj-ctxfnt exercises These exercises warm up your muscles [...] provider. Document Revised: 08/19/2021 Document Reviewed: 08/19/2021 [employer] Patient Education 2022 [employer] 12/21/2022 14:54:11 Ankle Sprain, Mmlz-mg-Njwh Ankle Sprain An ankle sprain is a [...] blue. Managing pain, stiffness, and swelling Take jscs-gei-udbjijj and prescription medicines only as told by [...] provider. Document Revised: 08/19/2021 Document Reviewed: 08/19/2021 [employer] Patient Education 2022 [employer]. Follow Up Care 12/21/2022 13:24:37 With:[facility] Address: [address] [place] [phone]- Business (1) When:12/24/2022 14:27:12 Comments:Follow-up with your primary care provider in 3 to 5 days. If symptoms worsen, do not improve, or new symptoms arise please report back to emergency department for further evaluation. [facility]06-14-2023 Evaluation + Plan noteExtracted from: Title:ED Note Author:Nazario CAO, Loyd Matute te:12/21/22 Left ankle sprain (S93.402A: Sprain of unspecified ligament of left ankle, initial encounter) Sprain of left foot (S93.602A: Unspecified sprain of left foot, initial encounter) Orders: Crutches XR Ankle 3+ Views Left XR Foot 3+ Views Left [facility]02-28-2023 Hospital Discharge instructions Patient Education 09/05/2022 22:58:39 Hives, Dtcj-lj-Bmww Hives Hives are itchy, red, swollen areas [...] woman. Being allergic to foods such as: ?[place] fruits. ?Milk. ?Eggs. ?Peanuts. ?Tree nuts. ?Shellfish. [...] instructions at home: Medicines Take or apply ylcs-rbt-bvabvsf and prescription medicines only as told by [...] what causes your hives. Take and apply bkeh-jhs-rpmsuow and prescription medicines only as told by your doctor. Keep all follow-up visits as told by your doctor. This is important. This information is not intended to replace advice given to you by your health care provider. Make sure you discuss any questions you have with your health care provider. Document Released: 04/04/2009 Document Revised: 01/09/2019 Document Reviewed: 01/09/2019 [employer] Patient Education 2020 [employer]. Follow Up Care 09/05/2022 21:02:01 With:KATJA MCGINNIS Address: [facility] [place] [address]- Business (1) When:09/08/2022 21:23:21 Comments:Follow-up for further evaluation of your urticarial rashes and reactions. With:Mark Pitts Address: [address] [place] [address]- Business (1) When:Within 3 Day(s) [facility]02-27-2023 Evaluation + Plan noteExtracted from: Title:ED Note Author:Nazario CAO, Loyd Matute te:09/05/22 Allergic reaction (T78.40XA: Allergy, unspecified, initial encounter) Urticaria (L50.9: Urticaria, unspecified) Orders: diphenhydrAMINE, 25 mg = 0.5 mL, Injection, IV Push, Once, Stop date 09/05/22 21:11:00 EST, STAT, Start date 09/05/22 21:11:00 EST, 09/05/22 21:11:00 EST epinephrine, 0.3 mg, IntraMuscular, Once, # 1 kit(s), Refills(s) 1, Pharmacy: [facility] 1985, 160, cm, 09/05/22 21:08:00 EST, [...] day(s), # 21 tab(s), Refills(s) 0, Pharmacy: [facility], 160, cm, 09/05/22 21:08:00 EST, Height/Length Dosing, 85.6, kg, 09/05/22 21:08:00 EST, Weight Dosing Sodium Chloride 0.9% intravenous solution, 1,000 mL, Soln-IV, IV, Once, Stop date 09/05/22 21:11:00 EST, STAT, Start date 09/05/22 21:11:00 EST, mL/hr, Infuse over 61, minute(s) [facility]10-06-2022 Hospital Discharge instructions Patient Education 04/14/2022 19:42:50 [...] symptoms? Symptoms of anaphylaxis may include: Feeling electrical hardware engineer the face (flushed). This may include redness. [...] you have hives or rash: ?Use an miyt-nuz-aihobtz antihistamine as told by your health care provider. ?Apply cold, wet cloths (cold compresses) to your skin or take baths or showers in cool water. Avoid hot water. Take uxti-tlr-gyingnq and prescription medicines only as told by your health care provider. Tell all your health care providers that you have an allergy. Keep all follow-up visits as told by your health care provider. This is important. How is this prevented? Avoid allergens that have caused an anaphylactic reaction in the past. When you are at a restaurant, tell your prospecting observer that you have an allergy. If you are not sure whether a menu item contains an ingredient that you are allergic to, ask your prospecting observer. Where to find more information [employer]: aaaai.org [employer]: healthychildren.org Get help right [...] 06/26/2006 Document Revised: 10/18/2018 Document Reviewed: 10/18/2018 [employer] Patient Education 2020 [employer] Follow Up Care 04/14/2022 14:45:49 With:Mark Pitts Address: [address] [place] [address]- Business (1) When:04/17/2022 18:33:05 [facility]05-13-2022 Hospital Discharge instructions Patient Education 11/19/2021 19:08:27 [...] have symptoms of anaphylaxis, such as: Feeling electrical hardware engineer the face (flushed). This may include redness. [...] you are at a restaurant, tell your prospecting observer that you have an allergy. If you are unsure whether a meal has an ingredient that you are allergic to, ask your prospecting observer. Take ewqo-tvo-bucxurg and prescription medicines only as told by [...] 06/23/2001 Document Revised: 06/26/2018 Document Reviewed: 06/26/2018 [employer] Patient Education 2020 [employer] Follow Up Care 11/19/2021 15:20:25 With:[facility] Address: [address] [place] [address] Business (1) When:11/22/2021 18:25:35 [facility]12-28-2021 NotePROCEDURE: CTA CHEST WO W CON REASON [...] authenticated by: TULIO VILLASEÑOR Date: 2021-07-05 23:35[facility] No data available for this section [facility] Diagnosis Third trimester state, incidental Diabetes mellitus screening Screening for diabetes mellitus BV (bacterial vaginosis) Unspecified vaginitis and vulvovaginitis Nausea Nausea alone documented [facility] this encounter [facility] No data available for this section [facility] Summary Purpose Family History No Family History Records FoundNo Family History Records FoundNo Family History Records Found Advance Directives No Advanced Directives Records FoundNo Advanced Directives Records FoundNo Advanced Directives Records Found Additional Source Comments INFORMATION SOURCE (unrecogn ized section and content) DATE CREATED AUTHOR 01/17/2022 [facility] DATE CREATED AUTHOR AUTHOR'S ORGANIZ ATION 02/26/2023 [facility] DATE CREATED AUTHOR AUTHOR'S ORGANIZ ATION 09/20/2023 [facility] EPIC Patient Care team informatio n (unrecognized section and content) Crisis Worker Relationship Specialty Start Date End Date Mark Pitts MD [address] [place] [address] PCP - General Family Medicine 04/14/23 Crisis Worker Relationship Specialty Start Date End Date Mark Pitts MD [address] [place] [address] PCP - General Family Medicine 04/14/23 Reason [...] BE BASED ON THE PRIMARY CLINICAL RECORDS. [employer] provides no warranty or guarantee of the accuracy or completeness of information in this document.
--- NOTE | 2023-10-03 08:26 | US_ITS ---
[address] [address] Patient Name: RJ ELENA MRN: [id number] date: 1990 Sex: F Assigned Patient Location: [facility] Current Patient Location: [facility] Accession/Order Number: [id number] Exam Date: 10/03/2023 08:26 Report Date: 10/03/2023 09:18 At the request of: PALOMO MESA Procedure: US OB growth EXAMINATION: US OB growth HISTORY: LGA COMPARISON: No relevant comparison available. FINDINGS: Heart Rate: 151.0 bpm Amniotic Fluid Volume: 10.4 cm Number: 1.0 Position: Cephalic presentation, longitudinal lie Maximum Vertical Pocket: 3.5 cm cm 4.1 cm cm 2.8 cm cm 0.0 cm cm BIOMETRY: BPD: 8.6 cm cm; 34 weeks 5 days; 43% HC: 30.9 cmcm; 34 weeks 4 days , 10% AC: 30.4 cm cm; 34 weeks 3 days, 38% FL: 6.4 cm cm; 32 weeks 6 days; 4.4 % % EFW: 2325.0 grams, 5 lbs. 2 oz., 21% FL/AC: 20.9 FL/BPD: 74.0 HC/AC: 1.0 GESTATIONAL AGE: Age by EDC: 35 weeks 0 days HILARY by EDC: 11/07/2023 Age by US: 34 weeks 1 day HILARY by US: 11/13/2023 US/US OB growth IMPRESSION: Femur length at the 4th percentile Otherwise normal interval growth Electronically authenticated by: FELICITAS TINOCO Date: 10/03/2023 09:18
== END 2023-10-03 08:24 | disposition home or self-care (01) ==
LOC: NOMS 08:23
PROVIDERS: Visit Provider Obstetrics & Gynecology
DX: O26.849 Uterine size-date discrepancy, unspecified trimester (principal); Z3A.34 34 weeks gestation of pregnancy
CPT/HCPCS: 76816

== ENCOUNTER 2023-10-10 20:34 | Outpatient (REF) | payer OTHER, SELFPAY ==
--- OUTSIDE RECORDS SUMMARY | 2023-10-10 20:40 | XMS_ITS | CCD ---
Author Organization [facility] Care Team Providers Care Air Sealing Technician Name Role Phone Mark Pitts Primary Care [...] MONICA, Willa Jean Attending Unavailable MONICA, Willa Uche Admitting Unavailable Quita Clark Attending Unavailable Lamin, Solo [place] Attending Unavailable Mark Pitts MD Primary Care Provider BRODERICK NICKERSON Attending Unavailable CHEPE, BHUMIKA Attending Unavailable CHEPE, BHUMIKA Attending Unavailable BRODERICK NICKERSON Attending Unavailable BHUMIKA [place] Attending Unavailable BRODERICK NICKERSON Attending Unavailable Allergies Allergy Classification Reported Allergen(s) Allergy Type Date of Onset Reaction(s) Facility (11 sources) Codeine; Translations: [codeine] Drug Allergy 3 [facility] (8 sources) Penicillin; Translations: [penicillin] Drug Allergy [facility] (1 source) Clindamycin Drug Allergy [facility] (1 source) Codeine Drug Allergy 4 [facility] (1 source) Penicillins Drug allergy (disorder) 4 [facility] (10 sources) Ibuprofen; Translations: [ibuprofen] Drug Allergy 3 Anaphylaxis (disorder), [facility] (6 sources) Amoxicillin; Translations: [amoxicillin] Drug Allergy 3 [facility] (3 sources) Penicillins Propensity to adverse reactions 3 [facility] Medications Current Medications Medication Drug Class(es) Dates Sig (Normalized) Sig (Original) Albuterol (Eqv-ProAir HFA) 90 mcg/inh inhalation aerosol (1 source) Start: 02-26-2023 End: 03-05-2023 take 2 puff(s) by inhalation every four hours Albuterol (Eqv-ProAir HFA) 90 mcg/inh inhalation aerosol 2 puff(s), Inhalation, q4hr for 7 day(s), 8.5 gm, Refill(s) 0, [facility], 160, cm, 02/26/23 15:59:00 EDT, Height/Length Dosing, 85.6, kg, 02/26/23 15:59:00 EDT, Weight Dosing Start Date: 02/26/23 Stop Date: 03/05/23 Status: Ordered brompheniramine maleate 0.4 mg/ml / dextromethorphan hydrobromide 2 mg/ml / pseudoephedrine hydrochloride 6 mg/ml oral solution (9 sources) alpha-Adrenergic Agonist, Uncompetitive Y-yvgdjc-T-aspartat e Receptor Antagonist, Sigma-1 Agonist Start: 02-27-2023 [...] for cold symptoms, 200 mL, Refill(s) 0, [facility], 160, cm, 02/26/23 15:59:00 EDT, Height/Length Dosing, 85.6, kg, 02/26/23 15:59:00 EDT, Weight Dosing Start Date: 02/26/23 Status: Ordered ciprofloxacin 3 mg/ml / dexamethasone 1 mg/ml otic suspension (2 sources) Corticosteroid, Quinolone Antimicrobial Start: 12-30-2022 End: 01-06-2023 Ciprodex 0.3%-0.1% Susp-Otic 5 drop(s), Otic, BID for 7 day(s), 7.5 mL, Refill(s) 0, [facility], 160, cm, 12/30/22 13:14:00 EDT, Height/Length Dosing, 85.6, kg, 12/30/22 13:14:00 EDT, Weight Dosing Start Date: 12/30/22 Stop Date: 01/06/23 Status: Ordered [id number] 0.3 ml EPINEPHrine 1 mg/ml auto-injector (9 [...] inventory, # 1 kit(s), Refills(s) 0, Pharmacy: [facility], 160, cm, 04/14/22 14:56:00 EDT, [...] day(s), # 7 tab(s), Refills(s) 0, Pharmacy: [facility], 160, cm, 04/14/22 14:56:00 EDT, Height/Length Dosing, 83, kg, 04/14/22 14:56:00 EDT, Weight Dosing Start Date: 04/14/22 Stop Date: 04/21/22 Status: Ordered Start: 11-19-2021 End: 11-26-2021 take 1 tablet by mouth once daily at bedtime Pepcid 40 mg Tab 40 mg = 1 tab(s), Oral, Once a day (at bedtime), X 7 day(s), # 7 tab(s), Refills(s) 0, Pharmacy: [facility], 160, cm, 11/19/21 15:30:00 EDT, [...] l route once daily Flonase 0.05 mg/inh Austin 2 spray(s), Nasal, Daily, 16 gram, Refill(s) 0, each nostril, [facility], 160, cm, 12/31/22 10:20:00 EDT, [...] day(s), # 14 tab(s), Refills(s) 0, Pharmacy: [facility], 160, cm, 02/26/23 15:59:00 EDT, [...] day(s), # 15 tab(s), Refills(s) 0, Pharmacy: [facility], 160, cm, 02/26/23 15:59:00 EDT, Height/Length Dosing, 85.6, kg, 02/26/23 15:59:00 EDT, Weight Dosing Start Date: 02/26/23 Stop Date: 03/03/23 Status: Ordered Start: 09-05-2022 End: 09-12-2022 take 3 tablets by mouth once daily predniSONE 20 mg Tab 60 mg = 3 tab(s), Oral, Daily, X 7 day(s), # 21 tab(s), Refills(s) 0, Pharmacy: [facility], 160, cm, 09/05/22 21:08:00 EST, Height/Length Dosing, 85.6, kg, 09/05/22 21:08:00 EST, Weight Dosing Start Date: 09/05/22 Stop Date: 09/12/22 Status: Ordered Start: 04-14-2022 End: 04-21-2022 take 3 tablets by mouth once daily predniSONE 20 mg Tab 60 mg = 3 tab(s), Oral, Daily, X 7 day(s), # 21 tab(s), Refills(s) 0, Pharmacy: [facility], 160, cm, 04/14/22 14:56:00 EDT, Height/Length Dosing, 83, kg, 04/14/22 14:56:00 EDT, Weight Dosing Start Date: 04/14/22 Stop Date: 04/21/22 Status: Ordered Start: 11-19-2021 End: 11-26-2021 take 3 tablets by mouth once daily predniSONE 20 mg Tab 60 mg = 3 tab(s), Oral, Daily, X 7 day(s), # 21 tab(s), Refills(s) 0, Pharmacy: [facility], 160, cm, 11/19/21 15:30:00 EDT, [...] q4hr, # 14 tab(s), Refills(s) 0, Pharmacy: [facility] Start Date: 03/21/19 Status: Ordered traMADol hydrochloride 50 mg oral tablet (1 source) Opioid Agonist Start: 12-31-2022 End: 01-03-2023 take 1 tablet by mouth every six hours as needed for pain traMADOL 50 mg Tab 50 mg = 1 tab(s), Oral, q6hr, PRN for pain, X 3 day(s), # 12 tab(s), Refills(s) 0, Pharmacy: [facility], 160, cm, 12/31/22 10:20:00 EDT, Height/Length Dosing, 85.6, kg, 12/31/22 10:20:00 EDT, Weight Dosing Start Date: 12/31/22 Stop Date: 01/03/23 Status: Ordered Zofran ODT 4 mg Tab-Dis (14 sources) Start: 08-05-2019 take 1 tablet by mouth three times daily Zofran ODT 4 mg Tab-Dis 4 mg = 1 tab(s), Oral, TID, # 15 tab(s), Refills(s) 0, Pharmacy: [facility], 160, cm, 08/05/19 9:28:00 EST, Height/Length Measured, 86.5, kg, 08/05/19 9:28:00 EST, Weight Measured Start Date: 08/05/19 Status: Ordered Start: 03-21-2019 take 1 tablet by savannah th every six hours Zofran ODT 4 mg Tab-Dis 4 mg = 1 tab(s), Oral, q6hr, # 10 tab(s), Refills(s) 0, Pharmacy: [facility] Start Date: 03/21/19 Status: Ordered [...] te Episodic/Chronic Other aftercare (1 source) Other care home (current) drug therapy; Translations: [OTH [facility] CURRENT DRUG THERAPY] Onset: 07-07-2021 Episodic Other [...] 31.4 % Low 36.0 - 48.0 % [facility] Hemoglobin (Bld) [Mass/Vol] 9.7 g/dL Low 12.0 - 16.0 g/dL [facility] IMMATURE GRANULOCYTES ABS AUTO 0.05 High [facility] Immature granulocytes/100 WBC (Bld) 0.4 % 0.0 - 0.5 % [facility] Interpretation and review of laboratory results Abnormal [facility] LYMPHOCYTES ABSOLUTE AUTO 2.6 [facility] Lymphocytes/100 WBC (Bld) 19.4 % Low 20.5 - 60.0 % [facility] MCH (RBC) [Entitic mass] 25.3 pg Low 26.7 - 34.0 pg [facility] MCHC (RBC) [Mass/Vol] 30.9 g/dL 29.9 - 35.2 g/dL [facility] MCV (RBC) [Entitic vol] 82.0 fL 81.0 - 99.0 fL [facility] MONOCYTES ABSOLUTE AUTO 0.3 [facility] Monocytes/100 WBC (Bld) 2.6 % 1.7 - 12.0 % [facility] NEUTROPHILS ABSOLUTE AUTO 10.2 High [facility] Neutrophils/100 WBC (Bld) 76.7 % High 43.0 - 75.0 % [facility] Platelet mean volume (Bld) [Entitic vol] 10.6 fL 9.5 - 13.5 fL [facility] TBH EO # 0.1 [facility] PLT 176 [facility] RBC 3.83 Low [facility] WBC 13.3 High [facility] Urinalysis macro (dipstick) panel (U)on 08-21-2023 Bilirubin, UA Negative Negative - 4(70) +++ mg/dL [facility] Blood, UA Negative Negative - 50 Juan Alberto/mcL [facility] Clarity, UA Clear [facility] Color, UA Yellow [facility] Glucose, UA Negative Negative - 2000(110) ++++ mg/dL [facility] Interpretation and review of laboratory results Normal [facility] Ketones, UA Negative Negative - 160(16) ++++ mg/dL [facility] Leukocytes, UA Negative Negative - 500+++ Geovani/mcL [facility] Nitrite, UA Negative Negative - Positive [facility] pH, UA 7.0 5 - 9 [facility] Protein, UA Negative Negative - 1999(20) ++++ mg/dL [facility] Spec Grav, UA 1.015 1 - 1.03 [facility] Urobilinogen, UA 0.2 0.2 - 12 mg/dL [facility] Cytology Cervical or vaginal smear or scraping studyon 06-15-2023 [facility] Consent for Treatmenton 02-08 Consent for Treatment [id number]#1 .00CD:127 Normal [facility] Discharge Instructionson Discharge Instructions [id number]# 1.00CD:127 Normal [facility] ED Clinical Summaryon 2022 ED Clinical Summary [place] [id number] ED Clinical Summary Person Information Name: RJ ELENA Calista/[facility] Age: 32 Years : 1990 Sex: Female Language: Venezuelan PCP: Mark Pitts DO Marital Status: Single Phone: [phone] MRN: [id number] Visit Id: Visit Reason: Shortness of breath; [...] 18:10:02 02/26/2023 18:10:02 02/26/2023 18:10:02 ADDRESS: [address] [place] [address] [address] [facility] [id number] [facility] DOC NOTES: MEDICAL INFORMATION: Prescriptions Given: New Medications [facility], [address] [place], [place] [id number], [phone] albuterol (Albuterol (Eqv-ProAir HFA) 90 mcg/inh inhalation aerosol) 2 Puffs Inhalation every 4 hours for 7 Days. Refills: 0. guaifenesin (Mucinex 600 mg Tab-ER) 1 Tablets By Mouth every 12 hours for 7 Days. Refills: 0. Medications to Continue Taking That Have Changed [facility], [address] [facility] [place] [id number], [phone] START: brompheniramine/dextr omethorphan/PSE (Bromfed DM oral syrup) [...] Refills: 0. fluticasone nasal (Flonase 0.05 mg/inh Austin) 2 Sprays Nasal Inhalation every day. each [...] Follow up: With: Address: When: Mark Pitts [address] [place], [place] [id number] Business (1) In 3 days 03/01/2023 Comments: [...] symptoms. DIAGNOSIS: Bronchitis; Upper respiratory infection Normal [facility] ED Note-Physicianon 02-27-20 ED Note-Physician Basic [...] of Problems Differential Diagnosis: [] [facility] Data External documents reviewed: [] My EKG [...] for 7 day(s), 8.5 gm, Refill(s) 0, [facility], 160, cm, 02/26/23 15:59:00 EDT, Height/Length Dosing, 85.6, kg, 02/26/23 15:59:00 EDT, Weight Dosing brompheniramine/dextr omethorphan/PSE, 5 mL, Oral, QID for cold symptoms, 200 mL, Refill(s) 0, [facility], 160, cm, 02/26/23 15:59:00 EDT, Height/Length Dosing, 85.6, kg, 02/26/23 15:59:00 EDT, Weight Dosing guaifenesin, 600 mg = 1 tab(s), Oral, q12hr, X 7 day(s), # 14 tab(s), Refills(s) 0, Pharmacy: [facility], 160, cm, 02/26/23 15:59:00 EDT, Height/Length Dosing, 85.6, kg, 02/26/23 15:59:00 EDT, Weight Dosing predniSONE, 60 mg = 3 tab(s), Oral, Daily, X 5 day(s), # 15 tab(s), Refills(s) 0, Pharmacy: [facility] (more content not included)... Normal [facility] Comment on above: Result Comment: Elec [...] Follow these instructions at home: ? Take uifd-ddh-ctblsgl and prescription medicines only as told by [...] and water are not available, use hand route supervisor. ? Avoid contact with people who have [...] is easier to cough up. ? Take hnuf-imh-joxuqdd and prescription medicin (more content not included)... Normal [facility] ED Patient Summaryon 023 ED Patient Summary [address] [address] Patient Discharge Instructions Person Information Name: RJ ELENA Age: 32 Years Arrival Date: 02/26/2023 15:53:15 Discharge Diagnosis: Bronchitis; Upper respiratory infection Primary Care Physician: Mark Pitts DO Provider Information Primary Provider: Charlie Rubalcava DO Advanced Bureau Chief:Juan Ott PA-C The exam and treatment you received in the Emergency Department were for an urgent problem and are not intended as complete care. It is important that you follow up with a doctor, nurse practitioner, or physician?s elementary assistant principal for ongoing care. If your symptoms become [...] Follow-up Instructions: With: Address: When: Mark Pitts [address] [place] [address] [facility] (1) In 3 days 03/01/2023 Comments: Call [...] opioids can be used to help relieve dumyzfhv-vf-ytwcby pain and are often prescribed following a [...] and family) (more content not included)... Normal [facility] MICRO OTHER TESTSOrdered By: Juvenal Macario on 02-26-2023 Rapid COV Int NEG Ctl Pass (02/26/23 4:45 PM) Normal [facility] [place] Rapid COV Int POS Ctl Pass (02/26/23 4:45 PM) Normal [facility] Sero SARS-CoV+SARS-CoV-2 (COVID-19) Ag IA.rapid Ql (Resp) Not Detected (02/26/23 4:45 PM) Normal Not Detected [facility] Sero Prescriptions/Work Noteson 0 02-26-2023 Prescriptions/Work Notes [id number]# 1.00CD:127 Normal [facility] Rapid COVID Antigen [place]on 02-26-2023 Rapid COV Int NEG Ctl Pass Normal [facility] Comment on above: Performed By: #### 2 [id number] ####[facility] [address] [place] [address] Rapid COV Int POS Ctl Pass Normal [facility] Comment on above: Performed By: #### 2 [id number] ####[facility] [address] [place] [address] SARS-CoV+SARS-CoV-2 (COVID-19) Ag IA.rapid Ql (Resp) Not detected Normal Not Detected [facility] Comment on above: Result Comment: The [employer]? System for Rapid Detection of SARS-CoV-2 is [...] other viruses or pathogens; and, in the [facility]UST, this test is only authorized for the duration of the declaration that circumstances exist justifying the authorization of emergency use of in vitro diagnostics for detection and/or diagnosis of the virus that causes COVID-19 under Section 564(b)(1) of the Act, 21 U.S.C. ? 360bbb-3(b)(1), unless the authorization is terminated or revoked sooner. Performed By: #### 2 [id number] ####[place] [address] ADMITTED TO INTENSIVE CARE UNIT FOR CONDITION OF INTEREST:FIND:PT: NO Normal [facility] Comment on above: Performed By: #### 2 [id number] ####[place] [address] EMPLOYED IN A HEALTHCARE SETTING:FIND:PT: NO Normal [facility] Comment on above: Performed By: #### 2 [id number] ####[place] [address] FIRST TEST FOR CONDITION OF INTEREST:FIND:PT: Unknown Normal [facility] Comment on above: Performed By: #### 2 [id number] ####[place] [address] HAS SYMPTOMS RELATED TO CONDITION OF INTEREST:FIND:PT: YES Normal [facility] Comment on above: Performed By: #### 2 [id number] ####[place] [address] HOSPITALIZED FOR CONDITION OF INTEREST:FIND:PT: NO Normal [facility] Comment on above: Performed By: #### 2 [id number] ####[place] [address] STATUS:FIND:PT: NO Normal [facility] Comment on above: Performed By: #### 2 [id number] ####[place] [address] RESIDES IN A [facility] CARE SETTING:FIND:PT: NO Normal [facility] Comment on above: Performed By: #### 2 [id number] ####[place] [address] XR Chest 2 Viewson 3 XR Chest [...] mGy = na DAP = na Normal [facility] In office Testingon 01-31-20 23 In office Testing [id number]#1 .00CD:127 Normal [facility] Registrationon 01-30-2023 Registration [id number]# 1.00CD:127 Normal [facility] ED Note-Physicianon 01-10-20 ED Note-Physician Basic [...] of Problems Differential Diagnosis: [] [facility] Data External documents reviewed: [] My EKG [...] Daily, 16 gram, Refill(s) 0, each nostril, [facility], 160, cm, 12/31/22 10:20:00 EDT, Height/Length Dosing, 85.6, kg, 12/31/22 10:20:00 EDT, Weight Dosing tramadol, 50 mg = 1 tab(s), Oral, q6hr, PRN for pain, X 3 day(s), # 12 tab(s), Refills(s) 0, Pharmacy: [facility], 160, cm, 12/31/22 10:20:00 EDT, Height/Length Dosing, 85.6, kg, 12/31/22 10:20:00 EDT, Weight Dosing Disposition Plan Patient Discharge Condition Stable Discharge Disposition To home Discharge Prescription List Prescriptions Ciprodex 0.3%-0.1% Susp-Otic, 5 drop(s), Otic, BID Flonase 0.05 mg/inh Austin, 2 spray(s), Nasal, Daily traMADOL 50 mg Tab, 50 mg= 1 tab(s), Oral, q6hr, PRN Follow-up With When Contact Information Mark Pitts In 3 days 01/03/2023 EDT [address] [place] [address]- Business (1) Additional Instructions: Follow-up with your primary care provider in 3 to 5 days. If symptoms worsen, do not improve, or new symptoms arise please report back to emergency department for further evaluation. Patient Education Otitis Externa Attestation Patient seen and evaluated by the physician elementary assistant principal. Attending physician was present in the emergency department and supervised care. This visit was performed by both the physician and an APC. I performed all aspects of the MDM as documented. This report was transcribed u (more content not included)... Normal [facility] Comment on above: Result Comment: Elec tronically Signed By: Loyd Lange PA-C\.br\Date and Time Signed: 12/31/22 11:53 EDT\.br\Electronically Co-Signed By: Javier Woods DO\.br\Date and Time Co-Signed: 01/09/23 07:15 EDT Consent for Treatmenton 12-09 Consent for Treatment [id number] .00CD:127 Normal [facility] Discharge Instructionson Discharge Instructions [id number]# 1.00CD:127 Normal [facility] ED Clinical Summaryon 2022 ED Clinical Summary [address] [address] ED Clinical Summary Person Information Name: MITUL ELENARONALD Saunders [place] Age: 32 Years : 1990 Sex: Female Language: Venezuelan PCP: Mark Pitts DO Marital Status: Single Phone: [phone] Visit Id: Visit Reason: Ear pain; EAR [...] ADDRESS: [address] [place] [id number] PHYS DOC NOTES: MEDICAL INFORMATION: Prescriptions Given: New Medications [facility], [address] [facility] [place], [place] [id number], [phone] fluticasone nasal (Flonase 0.05 mg/inh Austin) 2 Sprays Nasal Inhalation every day. each [...] Otitis Externa Follow up: With: Address: When: [address] [address] Business (1) In 3 days 01/03/2023 Comments: Follow-up with your primary care provider in 3 to 5 days. If symptoms worsen, do not improve, or new symptoms arise please report back to emergency department for further evaluation. DIAGNOSIS: Bilateral otitis externa Normal [facility] ED Patient Education Noteon 12-31-2022 ED [...] you start to feel better. ? Take oizw-izd-pfnqjcs and prescription medicines only as told by [...] provider. Document Revised: 09/08/2021 Document Reviewed: 09/08/2021 [email or web address] Patient Education ? 2022 [place]. Normal [facility] ED Patient Summaryon 023 ED Patient Summary [place] [address] Patient Discharge Instructions Person Information Name: RJ ELENA Age: 32 Years Arrival Date: 12/31/2022 10:01:25 Discharge Diagnosis: Bilateral otitis externa Primary Care Physician: Mark Pitts DO Provider Information Primary Provider: Javier Woods DO Advanced Bureau Chief:None The exam and treatment you received in the Emergency Department were for an urgent problem and are not intended as complete care. It is important that you follow up with a doctor, nurse practitioner, or physician?s elementary assistant principal for ongoing care. If your symptoms become [...] Follow-up Instructions: With: Address: When: Mark Pitts [address] [place] [address] Business (1) In 3 days 01/03/2023 Comments: [...] opioids can be used to help relieve dbylklwy-ks-lqhdbb pain and are often prescribed following a [...] overdose. ? (more content not included)... Normal [facility] Consent for Treatmenton 12-09 Consent for Treatment [id number]#1 .00CD:127 [facility] Discharge Instructionson Discharge Instructions [id number]# 1.00CD:127 [facility] ED Clinical Summaryon 2022 ED Clinical Summary [address] [address] ED Clinical Summary Person Information Name: RJ ELENA [place] Age: 32 Years : 1990 Sex: Female Language: Venezuelan PCP: Mark Pitts DO Marital Status: Single Phone: [phone] Visit Id: Visit Reason: Ear pain; DOUBLE [...] 13:59:40 12/30/2022 13:59:40 12/30/2022 13:59:40 ADDRESS: [address] [place] [address] [address] [facility] [id number] PHYS DOC NOTES: MEDICAL INFORMATION: Prescriptions Given: New Medications [facility], [address] [facility] [place] [id number], [phone] ciprofloxacin-dexamet hasone otic (Ciprodex 0.3%-0.1% Susp-Otic) 5 [...] INFORMATION: Instructions: Follow up: With: Address: When: [address] [address] Business (1) In 3 days DIAGNOSIS: Otitis externa, left Normal [facility] ED Note-Physicianon 12-31-19 ED Note-Physician Basic [...] Information Mark Pitts In 3 days [address] [place] [address]- Business (1) Additional Instructions: Problem List/Past Medical History [...] Diagnostic Results No qualifying data available. Normal [facility] Comment on above: Result Comment: Elec tronically Signed By: Javier Woods DO\.br\Date and Time Signed: 12/30/22 13:54 EDT ED Patient Education Noteon 12-30-2022 ED Patient Education Note Normal [facility] ED Patient Summaryon 023 ED Patient Summary [place] [id number] Patient Discharge Instructions Person Information Name: RJ ELENA Age: 32 Years Arrival Date: 12/30/2022 13:06:22 Discharge Diagnosis: Otitis externa, left Primary Care Physician: Mark Pitts DO Provider Information Primary Provider: Javier Woods DO Advanced Bureau Chief:None The exam and treatment you received in the Emergency Department were for an urgent problem and are not intended as complete care. It is important that you follow up with a doctor, nurse practitioner, or physician?s elementary assistant principal for ongoing care. If your symptoms become worse or you do not improve as expected and you are unable to reach your usual health care provider, you should return to the Emergency Department. We are available 24 hours a day. RJ ELENA has been given the following list of patient education materials, prescriptions and follow-up instructions: Follow-up Instructions: With: Address: When: Mark Pitts [address] [place] [address] [facility] (1) In 3 days In the event that this physician does not participate in your insurance network, please consult with your insurance company to find a nearby participating provider. Patient Education Materials: A MESSAGE TO ALL PATIENTS REGARDING OPIOIDS PRESCRIPTION OPIOIDS: WHAT YOU NEED TO KNOW Prescription opioids can be used to help relieve akkwkvzi-dz-rrvhlc pain and are often prescribed following a [...] be struggling with addiction, tell your health day care home provider and ask for guidance or call [facility]?S National Helpline at [phone]. f Source: Department of Health and Human Services/Adeline (more content not included)... [facility] Registrationon 12-27-2022 Registration [id number]#1. 00CD:127 [facility] [place] 12-26-2022 Consent [id number]# 1.00CD:127 [facility] Registrationon 12-26-2022 Registration [id number]# 1.00CD:127 [facility] Consent for Treatmenton 12-08 Consent for Treatment [id number]#1 .00CD:127 [facility] Discharge Instructionson Discharge Instructions [id number]#1 .00CD:127 [facility] ED Clinical Summaryon 2022 ED Clinical Summary [place] [id number] ED Clinical Summary Person Information Name: RJ ELENA Calista/[facility] Age: 32 Years : 1990 Sex: Female Language: Venezuelan PCP: Mark Pitts DO Marital Status: Single Phone: [phone] Visit Id: Visit Reason: Foot pain-swelling; ROLLED [...] 14:54:11 12/21/2022 14:54:11 12/21/2022 14:54:11 ADDRESS: [address] [place] [address] [address] [facility] [id number] PHYS DOC NOTES: MEDICAL INFORMATION: Prescriptions Given: [...] Ankle Sprain, Phase I Rehab; Ankle Sprain, Rxub-xh-Furc Follow up: With: Address: When: [address] [address] Business (1) In 3 days 12/24/2022 Comments: Follow-up with your primary care provider in 3 to 5 days. If symptoms worsen, do not improve, or new symptoms arise please report back to emergency department for further evaluation. DIAGNOSIS: Left ankle sprain; Sprain of left foot Normal [facility] ED Note-Physicianon 12-22-19 ED Note-Physician Basic [...] of Problems Differential Diagnosis: [] [facility] Data External documents reviewed: [] My EKG [...] Pitts In 3 days 12/24/2022 EDT [address] [id number] Business (1) Additional Instructions: Follow-up with your primary care provider in 3 to 5 days. If symptoms worsen, do not improve, or new symptoms arise please report back to emergency department for further evaluation. Patient Education Foot Sprain Elastic Bandage and RICE Therapy Ankle Sprain, Phase II Rehab Ankle Sprain, Phase I Rehab Ankle Sprain, Klih-eg-Daxs Attestation Patient seen and evaluated by the physician elementary assistant principal. Attending physician was present in the emergency department and supervised care. This visit was performed by both the physician and an APC. I performed all aspects of the MDM as documented. This report was transcribed using voice recognition software. Every effort was made to ensure accuracy, however, inadvertent (more content not included)... Normal [facility] Comment on above: Result Comment: Elec [...] on your foot. General instructions ? Take vawn-atm-kxswblc and prescription medicines only as told by your health care provider. ? When you can walk without pain, wear supportive shoes t (more content not included)... Normal [facility] ED Patient Summaryon 023 ED Patient Summary [address] [address] Patient Discharge Instructions Person Information Name: RJ ELENA Age: 32 Years [facility]: [id number] Arrival Date: 12/21/2022 13:23:04 Discharge Diagnosis: Left ankle sprain; Sprain of left foot Primary Care Physician: Mark Pitts DO Provider Information Primary Provider: Charlie Rubalcava DO Advanced Bureau Chief:None The exam and treatment you received in the Emergency Department were for an urgent problem and are not intended as complete care. It is important that you follow up with a doctor, nurse practitioner, or physician?s elementary assistant principal for ongoing care. If your symptoms become worse or you do not improve as expected and you are unable to reach your usual health care provider, you should return to the Emergency Department. We are available 24 hours a day. RJ ELENA has been given the following list of patient education materials, prescriptions and follow-up instructions: Follow-up Instructions: With: Address: When: Mark Pitts [address] [place] [address] Business (1) In 3 days 12/24/2022 Comments: [...] Ankle Sprain, Phase I Rehab; Ankle Sprain, Wsgi-yr-Qagh A MESSAGE TO ALL PATIENTS REGARDING OPIOIDS PRESCRIPTION OPIOIDS: WHAT YOU NEED TO KNOW Prescription opioids can be used to help relieve zjefkzqm-yw-puypiv pain and are often prescribed following a [...] Drug Administrati (more content not included)... Normal [facility] XR Ankle 3+ Views Lefton XR [...] mGy = . DAP = . Normal [facility] XR Foot 3+ Views Lefton 12-08 [...] mGy = . DAP = . Normal [facility] Registrationon 12-16-2022 Registration [id number]# 1.00CD:127 Normal [facility] [place] 12-15-2022 Consent [id number]# 1.00CD:127 [facility] Coding Summary.on 09-06-2022 Coding Summary. CD:[id number] G h0bWw+PGhlYWQ+FK1RHQD mT99jfYOuxS9EV2nDYW9A AAVKFIBGUI9IFK3mnZI4B FqhL9JlwoBb NlutmIAwAY63CKs5RRD3k BrsIYrktM2llPBuP7m3Hx TyII54jH98IDndTTWuTnI 3LjZpbjsgbWFy W8eqLaCijYRlQbk+PHRhY mxlIHdpZHRoPScxMDAlJy CjjOjqTE2dYd5gEDTgXZF vbGxhcHNlOiBj w0yaLDKwKVfmCE7xmIljK 3CchCW6RJYvv4l8Cf28rN I+RXBnBDK5bTzcEGctl23 8ZiNlf3kzLHZ2 sJLnSDqtOHF6A66kg2Q6C NZaXFZwICX4sML5bC4fpR oadxjgB8BhfGBhYjN7EDB 3rEOulO2iwQsg soavfH2cCts+G92HDG6QI GVBZV7ZCbh4G1MpIcchsO I+JY80NVJkRY53lJBflQX xe6cplEr5UzAh KZNwWEK0yZczIYxxr9UiV EGkF42lfZGrx8L3XVBywF fhfEFvRoChxIE7fD0cUYa ewlduc4sasbps Gckax7lwdn83lN79T70eQ CaiQZXhATN8MQIgPYAxgP dibn1gcN2cQd8+GPbgo0v ac9buxUq3PqXz WRNmujThsBylSEX2o9KzY a97L9WinXvvj5OlEaj6xv 07hLWvg5B3kQN2WJghQQP vcH1zQVdtTfG0 ZSXdFgHvcK73fVJeDQhjF c9twUsjeEscTN7cPDXrra shQOUgaU6rMOBftEVqbIu oBA5uXWGulhmf g912NkBqUVL3VWXbdWAoW 1SdbD3eHfVeCFGkWSAeF9 TugXDsGUybR198RZjuFwE 5FCNgpjNjN7Zc XCEapXepIkB5j0G3Rp4Kg 1AswepnNPW8NItpOAGzXz Y0OkClBiN7B0NoBch9XXW rfWuyIJ5lN1Hq JKJavigisscikYT6KEOzT RHhsV46wZVlAUwiEu3un8 Z6v921TKHeHFOubJ93Ib3 udDogMTBwdCBU tN0kqeeuj0zhvjhpBfYzX RSwQVt4DTg2ULKkpSvpBs XlRQH4RkL0LMD6uWDzkU9 mfUweppdvpF5i Oyc+Q76tqP3jOBY2RBH6u cuvTKUvrlXnQC72GV78L9 RyPjwvdGFibGU+PGRpdiB jnYsqHN6hOwZr h9odw0AhEDlsG8VvNFDlH FtqLtp2UNBkDTQ6yVX2tF 8iRFVxPIxjl7G8uWK5L1I oxhQbie0th6df ZYRhEVokM41eySAyw5K5X OUvfXR1LCIjgIlcCqEdaB 93Oyc+BABmzGwtc7HyDcz lq1fos4pwiJy2 DiEaQKOxaqTwnRfyNXY6a 2QfAv27K28cFQtnYJYqUV WgWHSvXTOtgNxeyi3cfN2 wIi8+PGNvbCB3 hQI4jS6bLXQwFaH2APgvD 928RvTikNNfXiiiw4rzc7 sznRg0MwJwKWGdoiHjxTk kSVI2p7IvHn48 F02wVSxtDAIeWTHaPHNeQ NKjsGenei9jiZ2fNs3+PC 8ac0mqla80uW69jKG+PHR cWUD7mXzjYElj GNYjfV8yORnsSyP7JTPbS yTqhF38lYWzAKfoRj4bnG kmgPzdJY6uJHHycmoqb02 1WmAbo7stELFu sSIfWUidRWR7M97ul9U9G CWrVIGcWYA7nEK8hA6itK lnbjogbGVmdDsgdmVydGl cBVirSAdaX034 IHRvcDsnPlBhdGllbnQgT qGiEMn2I6CjUgo4PMNcuK qfNM0mfNZzNCwaJn3ewIc keItwXZ3qSBVf ltcit410ZsEgo0phSPAqy SUfKHmwSWN1Z50ln4K9UC SkVSAvCEP2oHQ7xX2jhRd nbjogbGVmdDsg svHufYsdAQvxNQhzI466F HRvcDsnPkJpcnRoIERhdG A0DX90WI70rYYza5T3yAO 1T8ChGTPwsmoj wrefnIU8SGGfKRRipS48E g1soBumQx5wHVIpLUM4VD ZvnNSqZ5KjeB6uViNlCIF eFHVlV0YznHWk LLwiL121EEezEvZ2EVMbb rLnJ2FsZSDcuIrjZaT9p0 L4Td0PQ2M9AN54SH68cHB vi8Y5yWJ4K5Km NYSjmtsrqxnqnUL3BRTmG ZOasH11Fn0taJrzSr6rVJ StFVX1RJRgiGQbZ5BlzN3 yOiAjMDAwMDAw R0YqgYNvBIlzY439QUvzW zR0GOIgxiRsX9XtRCMrlF psYvK4o6V8Py7LURc3XV4 7FB44bIPkz6B3 qEA6S1XkYSJfsaeexjaqf RM8ULFgTOYrlR00Ax8krF qeMo7pHHJyPJB4HBWfjJP iM8DmqY6lMyQh JEFaKLEaT0FnaFYnPMneT 329YMghDjY5ILRniqEnO0 CzHMTegCjgLpJ5h0L9Aq8 QFGAfGJ34GOS0 eGW2NQ42JE42Q2PjUsryy GFibGU+PHRhYmxlIHdpZH RoPScxMDAlJyBzdHlsZT0 dFv1gPSStLPVq bYeujRLmKwWss2cjVBUeD NacWO9enVmpK1PnuAJ3OQ Uvt5k9Gk27Q76dJ8ZgaVP +IQNqgPJ1oTQ4 jH0pAsRyRuM4UTeoK559X iKcgEWvNzxpe5gsu9mjoQ i9ShA8KTUvskUelLzwFSY 5v6HaJx94E31b IHdpZHRoPSIxNSUiIHZhb Cggxn6zwD5wZp8+PGNvbC O3kZX8aN4fGyFjKfZ2IJv mB964YeZwzQUz Hepvw6tfw9ypaVx2LsEyI EWrypGctLwwHKJ5q4YxIn 11T0MkyIncb7RtFxi7ht5 5nVBqz5K5qHV1 N4LnYHCvjpntzUHjzDfrZ A0sFDAdhbqdQYZwaT8wJJ BmE6g6XjWrKvN6ZDugK3N fiyT5LQZwmMPk UFawSSW3O10uu2E5WHOpP KXvKAQ7yRV2vY7poIgpne ogbGVmdDsgdmVydGljYWw fRCqxR587AILl gZovVQZurB5tCFAnfQOjk AtnAB3sBHOxxhnuQnIGSO EHVIvtCZOMQ8JCIVmCTOS gRzwvdGQ+PHRk BLI6bTmuBXfmUMLdrS3uB WRkL8f5YySoLgF8ISpeA1 KuOLRiphzhBx73bM1wWaQ lHqO6HEwvX3Ik dsR4EEUazDQyACxeITU7K 25jb9H5BTXvBWNhFUP3uQ Q7jR0qtDkizasqdFCkmZs gdmVydGljYWwt SLilA716HJNtyZncGwCgE aC3QzO5ZUP3K9OaHpd5QY KymTfqBV2ksPAlVRfrXo4 evDbjqQltUQ3g ZGBdvaomVAVniN3qOMWgx TPvcOooCQ6gTSFikkwhz1 19AcZgEJD1EBVilGLeQ5L brJ6mBpLjPWVk PRJpE9NerGMhSEkuF556E TidRsK1ODHsdpNpN1ShQN WylTglKyQ0r7R6Fo3eZrV ZZWFyczwvdGQ+ UAOuYXK2iVtcEYxcAQXke R8oQENkI8v0KdXySvP9FC jdJ1XuQBXkoiqxFc27aT0 mIjItYfP2BEjr G9NaydX5FUAvxNQlIHlqD FJ7Q79hp6T5DTUsERCuZB B6hMG2hY6bnIjhkwyhwSR mdDsgdmVydGlj NOtxLEpqH873JFXmnWkjT kZlbWFsZTwvdGQ+PHRkIH K1eYkaHIzmZZArcU7pQKG xG8a7ScIcRcR0 VApsA8FfWEWlqbmgTc71p E9yIeDwQdJ3SImgD2Cwcm F0GAKbzGSqCAlhNVD7T67 ou9D7UHQpQGFp YKE2jBF4bL4uxTyymechi GVmdDsgdmVydGljYWwtYW kdN424KSFubTehXxQwVPV kGE6keOgesBJ+ ZM71kq26E6DoIuciEpb0N GZjYXF0tSV3eJ8mQLNnEJ tep4G8fKC5S0QqdqPufy6 dc6brNQJyZQhp V53zfQCcg9C9RZDmzRZ5M YPrfTbrDyRszN68Mjm+PG NkwQyde8KgHvyei9mdy8r nlCd8IkFcNEOl zpAwhUwvGGL6h8BvPx16R 29sIHdpZHRoPSIzMCUiIH NhsQkqvc7ydD8uWh5+PGN klNV5lQD3mJ3v NvHsNiX4AGugM524KjEbx OUeNwlhi5uow6yxxZu9Vc EvAAUjtvQcjDovWXE9z7W lKa32A3WluYhz r1EjRct9ug86yJWjl3U2u UH9W7TaAMJqzidnlKYjvF daAC6kCCGqscmuFITtmV0 xYWZqX1l6PbWj KvW4FJsdG9SvdxC0XBMef BVzUFMfwTGVyW4aqxiry4 ypmwzvBvFiXYXlTQq6EYr 0LWFsaWduOiBs UOU0VmO1THA1dKAgfJ1rp FwvydcjsD5kCad+UGh5c2 npbCKeJC1sbMS2FK98HB9 1mTAks7T8oVB7 Y2PpBWLdfmeysqiliXP9W BHqKFDaoV00Cm9scSxrOt 2uBIVrITI8FHGrgVVaE8J bjB5oTnElLTCw LFBtX3FzqXOiELtbN146C NsiJsC6CYBzqkBbH7OnAB DuaVnjFnF7z0F5Rl6MEL6 3XH66NH68iMFi a2J8wMA6D6IiIUPiodpsy ixhcFX7RONmKPSxgV34Di 4zaUvyIn7lTIDoZZC0BMD ohTXtP2KvkX6o EzMdKWRvMQWlA0GqyGLjO NjwW296WGwqZmC0TUMhyg ZzI8CrYYKqwWzaCqN9e1R 5Hj4QNe49TT42 IX91bWUri5G1dDV4A2MvZ VJdspmgmngmeKK3FCQgMY JqzP40Tm9ugXhiTi3gMHM pFOY4SXIapYUo O4BfgR9uFnFiCQVtXSNhO 7JjrMOqBKzuP401SUemVl S8UHTiqmVcI3DhVAOtrDx lGjE6n9O8Fz3O TEsxbig6S9FyOhslmRJ+P S08ZJYnCW33jHIepUNdt0 qarIq8UyJkISHkFRF3yLy vRCgjq0GxLRVh Y29s (more content not included)... Normal [facility] Coding Summary. CD:[id number]:[id number] G h0bWw+PGhlYWQ+LB8UHBY kI79qwBBunH4JF6xUQZ0K LPSJYINTEK0ZKG4jeGX9H QvoP2YvgbUe OravnOBlVL39DDh7SQF4h IksYHfxeN9kqQJlX2r4Oh CePR73rF81HCfiKPOtDmV 3LjZpbjsgbWFy U4abTyWcuKMyMgs+PHRhY mxlIHdpZHRoPScxMDAlJy AnkOcrDE8gXp1pLDIyDLL vbGxhcHNlOiBj z4atQQTyHPubNQ1ruJqiV 1HztEA7EQSyx2i2Bf49cB I+SVNwSGA7fCiyGMwor02 5UdBqw6ktUBU5 nKGtZUzpEUK6K21iw2K0R ZMsLFDtFOX9nEG5mE0wkD usrkfbA6AwnVXqOyG8TIP 0bTCnoV3khVdn vdqxwQ8bJhw+N21ICI4XF KGUFP0TFyo4G2XhPecbdG I+JF07ELAaPX34gMHhlQK ru3bixLj4UgVu CXOeIDY8zWwgIDltf1JkC KJhU08koXNxl5I4YWXexX brmDWnRkDjiTD7qK0kKNo xineai5wggfkp Bfvrr6jmpr62iP84M04xT SpwASRiCNZ9FSUnCZScxI nxqm0sqU4qFb8+QZkdi1p pj5iybJz4TcIm MHQwtlJbbDheXBL0k4ZrI j84O5OaeVkno4AbDxn3mw 94hAKhk9U4xAB2TFsrJAO nmW4yUBecOyL8 ULVsHzLlyD63pHRlJIlfX z6frUhzlVygFE8mOLZrjt ufFZBikL9cRNQvhPHljOh bHE5sHVWpefbc p966LrOrXIC0XMVprXNuX 8DsaQ0oLzGtOEFuNSAxQ0 HlaORvBOrzH186WRguVsG 9ZWOvgdUiX6Mn PIFznHcwVhO1q7D3Pv5Zp 9ZqgcolLZM6RNasJTHlTf H4CnPqIxX3Y0QzSvy6DUY tcBbePA6pS3Zf ZXYvmiipenqjeHZ6ACHkD CZqtU51jADdMVhmAn8hl4 H7b448UCSqIHGrbV22My6 udDogMTBwdCBU yF9hyepyi3uurqshCmLfB TMeZZe0CEg5LTYyyFpqMp BiPET8HrC1PHL6gZNhjQ2 qlRcwzsruiZ2r Oyc+P73qvQ8hDHX9SVA0s tjtUCLwpbVnRQ08IR00C9 RyPjwvdGFibGU+PGRpdiB iiXtwLU7fKfGt b6diq1ZpJAqvU0RvDDExV UmcEuq5IPFhPIK3eJS4jG 4lGRMaUFfsz7H2pXZ3S6B oieDisx0yy4qs FYBpKVedH57ezSXbm8X4U VMkkBN9RCGxpGcvRcJagC 93Oyc+QLQwtNchl3QcIlm rn7riy2nfrSw5 OjNdRPMbaqFhqDygJJW9g 3JcKs03J39uOXbkXRNzML RlTKIvNOTaiHnwzq4ktK8 wIi8+PGNvbCB3 oSR4iV6fVWSoOjJ3TCpbK 848TjDxyCEsYuous7idb6 dibFm0EdHeXOKvgqSvzSu bCNG2u1OjGw98 C45wMStuPZEoESMkQRZaB BRznGucgi0liN8uJi3+PC 8rg3jdxq32pW84aOP+PHR tXIF3fUflRPpx CRHobJ8jGCcqMhQ9GCJxN yMoqN01uFYvQFehLa2otK ohkLhkTW5sKAVvknlbe72 8OlKsk8mrSJPz rFFfFNgvBEJ6H37bm9Y7M QPcDFZvXNK0qHP8lV9ieP lnbjogbGVmdDsgdmVydGl cPRnkCLqsE087 IHRvcDsnPlBhdGllbnQgT iDsXYr6T4LxEtc1PDMslV xzIO7smIXuUBbfNt1avOw wnMagVF2mYTZf wgjxx844ErEug4oiDOWmq MIzWNfgZJG2K13kf0K8CW FqHSLuCHG6kMN2hM5gfVs nbjogbGVmdDsg vwVhmYrcXFmtAZueK430Y HRvcDsnPkJpcnRoIERhdG B2XW28LN41jVQtb5Z7tYI 5P5CbCRNieyte vtutmFP3JYJwXEMnmR19W q3jrEmlXj5qCUXzQWD1JW HtyIJlH3IgrG8vMlSdNRY zOXNvE1SjtRZk BRabC907QZjtObT0GPAyz xWwY7SiUXPjdXiyYrL5t1 N5Jj8IB8P3SJ86EM49lUF by1T4rXC1H1Ra SYCawvipbtaukQX6CENaB PBdgL96Rt9xxLpxHf6hFZ ZsIOT6SMCoqVNtB9YicP7 yOiAjMDAwMDAw L1GdrTZgHNbbQ584TVunN cD8WOEbotCyO0JjFVFhlN cmVmX8e4O8Ke0SJNe2OZ9 5IE65wKDqj0X0 rUN0G1TdUESznqoehguhh VT7EVArMFDyrZ13Fe7uqH wuRm8xZNIqDJK2NHHlkUO nY3VnwW2qAuWs PBMtTWAhQ9NnwKEqEJwbF 582XUctMbF6AAUdnrTkB1 XgPOQojVmrXvY0x4Q6Lj3 VDQUyCU49YVT6 nSY2SQ37GR59V8HeLuzsn GFibGU+PHRhYmxlIHdpZH RoPScxMDAlJyBzdHlsZT0 fZu1eAWTzYRKs zYsiqSJbLyVyg4hrBZTiF XlfWT2skMdqV7GstXA9VC Ftp6g9Nw01P51kQ2RmnOF +GSVanFF0nGR4 iA3iPkMvCaJ6TWxqB245L oLcqHLvQfogd3vgh9cpgU i6ZrJ8XLKevnJonBgvESM 0u4AxEx91V23p IHdpZHRoPSIxNSUiIHZhb Xwpog9ucY4rBn5+PGNvbC Q3zMU2dZ4gBiPdDbV2BDz oZ665YmHdmQSg Xztug7fkn5bdoEu6UpDiR UYaumJihXbtEXN0a5PhHr 13E4VcpXbwi4WuSmn1jt3 0sCCeu0X6fOR3 D4JyLNNcclrcoSSxgHyoV C0rEXAhuysoZVPggZ0gFC LpO5r0KdPuPhR6JWxjP7D jlbZ1GPMwjIGm YRqwOGQ2E07ax3S6EPOqJ SZfHXP7cAZ6vU3pfSbtex ogbGVmdDsgdmVydGljYWw rXZywZ063MWEc vPdyKCHecW1aUYNffJKrz ErzSK6oXAJonekqHlVEQA OWVKzgTANWB4EZCKiHCQV gRzwvdGQ+PHRk DBX7qFejCXpjUVNusO1mK INkH6u7CoZuKbS9TJjtH8 DsCUKmhtcyEr81tF4wWvR mLwZ3QVnrZ1Oq wiT4RUFyxQRqTZheCBT8D 84cs4W6LBNuGEMbBFK9zH T2rK3fcBuiuulntEZwvUo gdmVydGljYWwt DCitQ892UBTwdWviYbDyB pR6KkO6BRE3F5QsAiy2LB GirNksML0beAUiTEdoOd6 qxQacoHhjBG4n FYDavbrxYQClvN1uFPGzb BVlrWqsDZ7uTRDwxjfgf0 10JoZtQRK4KCSfoWBuR2M yiX6hIfGwRCXm HMBcG0PukMEiHGyyB745L WmiHeN8RWGryiZyT0ViPU UprNgxEoD2s2R8Tz0jUdM ZZWFyczwvdGQ+ NSOsFGM7gIiiOEujCZNiw A3bUWYnI2q9SdHwKbE9OS ocP5NyTBIwdcthHo56kD9 aEtLiSlK5MYhb A1FfqgM3ULOqfGJdSRkaP HN9M19ux9X0GEJxZTTaMO T8aJE2lW3hxVyaaxzmjSJ mdDsgdmVydGlj XTwcQAdbM640TJIxyEfxW kZlbWFsZTwvdGQ+PHRkIH Q1pEziIEcgPMNdgV8kPWB sA4n4RuInKkC2 DSmeB9ZeAOAauuxkUm21f L9hSvHfPfW6FDtbH3Hmdb J0RXSqgWUwMTijZQR2P91 vc7P9JENcULWa ETA0xAR2uX8wfUcuizxyj GVmdDsgdmVydGljYWwtYW fuM827AANmaTgiPzUvYMB dUS7kfEuojRQ+ SF23fz70Y0QxIyqjLap7T HStQQE8rGH9qR3hWHYhRE uwd7B8vRG8W1LmreNmkw4 fi7oiPYMgXApe J26poTXqy7N1OZZykEY5J OZagHzfPqNtcO84Zft+PG ArvKncu0TiOqfdz5qzr1d jsEj6FtUwXUQf ylGynSwrGTZ7e7NmQk80B 29sIHdpZHRoPSIzMCUiIH QedMised5vyM3hEy5+PGN auXS0kBC9kO0p XyOzEoS2MTabM665XmJyx PVbFzwon6jqj7okoMe7Jl ZaKLOthuPndDwqSON4x6B qIf89B6LlpYtu p0LgLjk0of91pVSps9Z3y OF0X9DxRZFocuxkiUHtnX cjVJ0tEQMbwncoYWVerJ2 xSDLlH0f3EbFa BcE5QSinW4AdsjW2GROki MNiLOBbeFJMqP5albpqd0 mjarmsRiNfMVWmWMa6RSz 0LWFsaWduOiBs YIP4RfD2RMO1eWHqsP3qs QkrwmjrcH2rUfe+UGh5c2 nzhNIwCG3bvJS7AY23CQ0 5iXNie6I3rJA1 L7UxMSUlwatpjpygeKT1L RBaWGWuwT70Ri2urNvtHs 6sPZEwTHV6LNYczAOjI5T hzR0sCmDoHARp XFNdK2AxrVVaPIqoK976P XruWdN8SMSggcWzH8KzKV EniSctOaO5o8B1Xp5JME2 5OA05LC54oOMn f3Y5wHV8P3CiFPVeyfmez oyyjHK8HTJpYXGhjT61Yk 8owAdzAw0bXKYsAGV5MMF fqZIrY9YrdT7u VlBrHZXrESQcJ4RcjMXbN MhiK678AOwqKpF9YIEdhp ZyQ4UnXGNeqHqeWmW5l5H 9Uu3CFb94NI62 IX03vMDko5H9pLW6E5ZeR JAajtncqgddlYU0WUWeNN LarZ62Su2dbObmCq0wIYQ gZXS2HSEdnOYl L3KqkG9lVfJvIXZfPHRmW 0BkiEQzGWtlV213UXgkUg W0SIYdyzEnS6TyAOXznPi dFgB8z0N9Tj6G QUzgqlv7R3WePiwazMV+P G77LNZuUM75mTAspDBtp3 tzrTv4OvTsSIGeWMU3bSa nKSmzu2MtGPJg Y29s (more content not included)... Normal [facility] Discharge Instructionson Discharge Instructions [id number]# 1.00CD:127 Normal [facility] ED Clinical Summaryon 2022 ED Clinical Summary [place] [id number] ED Clinical Summary Person Information Name: RJ ELENA Calista/[facility] Age: 32 Years : 1990 Sex: Female Language: Venezuelan PCP: Mark Pitts DO Marital Status: Single Phone: [phone] MRN: [id number] Visit Id: Visit Reason: Rash; Allergic reaction [...] 22:58:39 09/05/2022 22:58:39 09/05/2022 22:58:39 ADDRESS: [address] [place] [address] [address] [facility] [id number] PHYS DOC NOTES: MEDICAL INFORMATION: Prescriptions Given: Medications to Continue Taking That Have Changed [facility], [address] [place], [place] [id number], [phone] START: predniSONE (predniSONE 20 mg Tab) 3 [...] Refills: 0. PATIENT EDUCATION INFORMATION: Instructions: Hives, Vnzw-sz-Tyzh Follow up: With: Address: When: KATJA MCGINNIS [address] [place] [id number] Business (1) In 3 days 09/08/2022 Comments: Follow-up for further evaluation of your urticarial rashes and reactions. With: Address: When: [address] [id number] [facility] (1) In 3 days DIAGNOSIS: Allergic reaction; Urticaria Normal [facility] ED Note-Physicianon 09-06-19 ED Note-Physician Basic [...] that she has never follow-up with an cia agent before. Denies any chest pain. Denies any [...] of Problems Differential Diagnosis: [] [facility] Data External documents reviewed: [] My EKG [...] I do want her to see her cia agent. Discussed return precautions. Follow-up with your primary [...] Once, # 1 kit(s), Refills(s) 1, Pharmacy: [facility] 1 (more content not included)... Normal [facility] Comment on above: Result Comment: Elec [...] Being allergic to foods such as: ? [place] fruits. ? Milk. ? Eggs. ? Peanuts. [...] at home: Medicines ? Take or apply iuca-njm-wfkioai and prescription medicines only as told by [...] causes your hives. ? Take and apply pyer-uas-kbanafa and prescription medicines only as told by [...] Reviewed: 01/09/2019 Elsevier Patient Education ? 2019 [employer]. Normal [facility] ED Patient Summaryon 023 ED Patient Summary [address] [address] Patient Discharge Instructions Person Information Name: RJ ELENA Age: 32 Years Arrival Date: 09/05/2022 21:00:52 Discharge Diagnosis: Allergic reaction; Urticaria Primary Care Physician: Mark Pitts DO Provider Information Primary Provider: Quita Clark DO Advanced Bureau Chief:None The exam and treatment you received in the Emergency Department were for an urgent problem and are not intended as complete care. It is important that you follow up with a doctor, nurse practitioner, or physician?s elementary assistant principal for ongoing care. If your symptoms become [...] Instructions: With: Address: When: KATJA MCGINNIS [address] [place] [address] Business (1) In 3 days 09/08/2022 Comments: Follow-up for further evaluation of your urticarial rashes and reactions. With: Address: When: Mark Pitts [address] [place] [address] Business (1) In 3 days In the event that this physician does not participate in your insurance network, please consult with your insurance company to find a nearby participating provider. Patient Education Materials: Hives, Cdpd-ga-Axdp A MESSAGE TO ALL PATIENTS REGARDING OPIOIDS PRESCRIPTION OPIOIDS: WHAT YOU NEED TO KNOW Prescription opioids can be used to help relieve zoidzevf-mg-iqqqhc pain and are often prescribed following a [...] of opioid (more content not included)... Normal [facility] Monitor Recordon 09-06-2022 Monitor Record [id number]# 1.00CD:127 [facility] Consent for Treatmenton 08-11 Consent for Treatment [id number]#1 .00CD:127 [facility] Discharge Instructionson Discharge Instructions [id number]# 1.00CD:127 Normal [facility] ED Clinical Summaryon 2022 ED Clinical Summary [place] [id number] ED Clinical Summary Person Information Name: RJ ELENA Calista/[facility] Age: 32 Years : 1990 Sex: Female Language: Venezuelan PCP: Mark Pitts DO Marital Status: Single Phone: [phone] Visit Id: Visit Reason: Cough; Diarrhea; Fever; [...] 14:23:43 09/04/2022 14:23:43 09/04/2022 14:23:43 ADDRESS: [address] [place] [address] [address] [place] [id number] PHYS DOC NOTES: MEDICAL INFORMATION: Prescriptions Given: New Medications [facility], [address] [place], [place] [id number], [phone] brompheniramine/dextr omethorphan/PSE (Bromfed DM oral syrup) 5 [...] Infection, Adult Follow up: With: Address: When: [place] [address] [facility] (1) In 3 days 09/07/2022 Comments: Return to the emergency room if your symptoms get worse or any new symptoms DIAGNOSIS: 1:Upper respiratory infection Normal [facility] ED Note-Physicianon 09-04-19 ED Note-Physician Basic [...] of Problems Differential Diagnosis: [] [facility] Data External documents reviewed: [] My EKG [...] for cold symptoms, 200 mL, [facility], [facility], cm, 09/04/22 13:15:00 EST, Height/Length Dosing, 85.6, kg, 09/04/22 13:15:00 EST, Weight Dosing Influenza A&B Ag Rapid [place] Antigen [place] Disposition Plan Patient Discharge Condition Stable Discharge Disposition Discharged home Discharge Prescription List Prescriptions Bromfed DM oral syrup, 5 mL, Oral, QID, PRN Follow-up With When Contact Mark Pitts In 3 days 09/07/[address] Business (1) Additional Instructions: Return to the [...] Current, 03/08/2019 (more content not included)... Normal [facility] Comment on above: Result Comment: Elec [...] to help relieve symptoms, such as: ? Ydbo-xut-doezwcn cold medicines. ? Cough suppressants. Coughing is [...] other clear broths. General instructions ? Take ajfh-nod-lkcckjz and prescription medicines only as told by [...] and water are not available, use hand route supervisor. ? Avoid touching your mouth, face, eyes, [...] common infecti (more content not included)... Normal [facility] ED Patient Summaryon 023 ED Patient Summary [place] [id number] Patient Discharge Instructions Person Information Name: RJ ELENA Age: 32 Years Arrival Date: 09/04/2022 12:56:58 Discharge Diagnosis: 1:Upper respiratory infection Primary Care Physician: Mark Pitts DO Provider Information Primary Provider: Solo Kimble M.D. Advanced Bureau Chief:None The exam and treatment you received in the Emergency Department were for an urgent problem and are not intended as complete care. It is important that you follow up with a doctor, nurse practitioner, or physician?s elementary assistant principal for ongoing care. If your symptoms become worse or you do not improve as expected and you are unable to reach your usual health care provider, you should return to the Emergency Department. We are available 24 hours a day. RJ ELENA has been given the following list of patient education materials, prescriptions and follow-up instructions: Follow-up Instructions: With: Address: When: Mark Pitts [address] [place], [place] [id number] [facility] (1) In 3 days 09/07/2022 Comments: Return [...] opioids can be used to help relieve lwymmwrk-uy-acfsac pain and are often prescribed following a [...] care p (more content not included)... Normal [facility] Influenza A&B Agon 3 Influenzae A Ag Negative Normal Negative [facility] Comment on above: Performed By: #### 2 [id number] #### [facility] [address] [place] [address] Influenzae B Ag Negative Normal Negative [facility] Comment on above: Result Comment: Test sensitivity and specificity vary for age group, specimen type, antigen types, and prevalence of disease. Test results must be evaluated in conjunction with other clinical data available to the physician. Individuals who received nasally administered Influenza A vaccine may have positive test results up to 3 days after vaccination. Performed By: #### 2 [id number], [id number] #### [facility] [address] [place] [address] Prescriptions/Work Noteson 0 09-04-2022 Prescriptions/Work Notes [id number]# 1.00CD:127 Normal [facility] Rapid COVID Antigen ([facility])on 09-04-2022 Rapid COV Int NEG Ctl Pass Normal [facility] Comment on above: Performed By: #### 2 [id number], [id number] ####[facility] [address] [place] [address] Rapid COV Int POS Ctl Pass Normal [facility] Comment on above: Performed By: #### 2 [id number], [id number] ####[facility] [address] [place] [address] SARS-CoV+SARS-CoV-2 (COVID-19) Ag IA.rapid Ql (Resp) Not detected Normal Not Detected [facility] Comment on above: Result Comment: [employer] System for Rapid Detection of SARS-CoV-2 [...] or revoked sooner. Performed By: #### 2 [id number], [id number] ####[place] [address] ADMITTED TO INTENSIVE CARE UNIT FOR CONDITION OF INTEREST:FIND:PT: NO Normal [facility] Comment on above: Performed By: #### 2 [id number], [id number] ####[place] [address] EMPLOYED IN A HEALTHCARE SETTING:FIND:PT: NO Normal [facility] Comment on above: Performed By: #### 2 [id number], [id number] ####[place] [address] FIRST TEST FOR CONDITION OF INTEREST:FIND:PT: Unknown Normal [facility] Comment on above: Performed By: #### 2 [id number], [id number] ####[place] [address] HAS SYMPTOMS RELATED TO CONDITION OF INTEREST:FIND:PT: YES Normal [facility] Comment on above: Performed By: #### 2 [id number], [id number] ####[place] [address] HOSPITALIZED FOR CONDITION OF INTEREST:FIND:PT: NO Normal [facility] Comment on above: Performed By: #### 2 [id number], [id number] ####[place] [address] STATUS:FIND:PT: Unknown Normal [facility] Comment on above: Performed By: #### 2 [id number], [id number] ####[place] [address] RESIDES IN A CONGREGATE CARE SETTING:FIND:PT: NO Normal [facility] Comment on above: Performed By: #### 2 [id number], [id number] ####[facility] [address] [place] [address] Coding Summary.on 07-28-2022 Coding Summary. CD:[id number] G h0bWw+PGhlYWQ+GV0HHZE fF88enTKcwY8XV6eBZO1X LBJRHBPWSP1UDH0nqWW6E ZncA7UlnwVm QhmuvSClTR18LOm3DBX0s UrbFJyvrC1rlDRlA9a8Af RgQJ59jK14LFdeYFVpOtT 3LjZpbjsgbWFy V4euYoRraFLxArt+PHRhY mxlIHdpZHRoPScxMDAlJy CmyNvmTC8gOv0aOKFxUVI vbGxhcHNlOiBj d5diYGXxODihYP8ceOxoL 8XezTD8PZDye1q9Xy01mE I+CPKzYXY6kUnuSXtuh37 5IsWdl0enJSU4 rNNkWKxpRUT0D52ek9I8F ADhLXOzWQT5zOK2sN6acN anqirnX5UngQAfTwC8RPK 5dYHpeX7ejYyf wihjnU4nRts+S36XNX7UA VHDLM3VQvd8O0LvMllabC I+JX63CSWmHK09wEYagKH ud5vphVa5QmSp FJHqZML0mQyaFPfhe5KlD WHjQ52zqYDys2S7EJUhsR nihUXkBsEbiAD4iQ1oYXl cigpwy7waktdb Cxrac7jeyq03uJ56G49lQ VonWZTiDBJ1VVUrNPZkjR ocxv4axD9pQz4+UXkrw6o sd4emnZz1UbUw XYXfkrOknUvsCWH5c5InP a00Z5QoqJfbz6EbZxq3bo 33dBOqk4A9bVW6LPguSPE zdV8mRVpeWdL1 WTCwQgYjxE55mQKwPKthD u8rdDklsSbgPH3tSFFgbs zmATBueI6iABSuoSQxmDn cMP8dKEZlmxaj a763TeYdBSB6OKTwrJCzH 9IiwH8rUhGsUQXnPEQrW0 FokEKmXGkzY383CTcpIoO 8EJGeutRmY9Xo UAAhxRznCoN9i9B6Ca8Wq 2CuelvbNNW3XLhdJFFvFw G8JkSiRdR2O3IoBpp5BSX qfPjkXT3uI5Gv PFZirllzbtmjwJM1RMVkI HDkmY55sDHqMDxyJo7nk9 U0p532MTBfWOUuhK99Vd9 udDogMTBwdCBU rG3xugzrl3ijthjpYhCrL URcGFa0KIe1RVAivApuYe JiRZY2YnC8EIU0hFEuuL3 szTcjwvboqS5d Oyc+K55goO9fBVF0VHH5f trsSYWydrWsHS04XR46E8 RyPjwvdGFibGU+PGRpdiB flHuiDH5iPpTg x9bbt8XgKWekV4CiDICpF ZrdMzp7LFRiNLO4pFB5jK 0tKWIfGUnoy7O8vVM9Q5B fchOeea6oa3mb ZVFgBUllE50dlDLwt7A0S JLzeFR5OOKooIriJzOiqK 93Oyc+TYPrpDdzj7XkUtf kd5ukq4jxhMb1 WqEoGJJikzCwcKdfMXS6x 0NhWb40E48xPOqcEHKvDN TgHEZlHJMmoGnazo2ueK4 wIi8+PGNvbCB3 iAB1tL9dKQQyXtX5UGxrD 421ZpKigXJwTwmgi7kke3 vfxNh5JcAxBYYlhsDqdVw dALJ8k7OmOb25 U11cJKekUDReAMVtHUOtY ZVmjXozad8tnH4dZj0+PC 6xr0laje14hL18hBO+PHR pOFQ2hKybZTii WAWakE8oAAsrKjJ5FOLvB fKizV46sKSlGKyaHi6xmJ pruXwiEX3vVQKcbovqe39 1GfMuc6erXRRs iZVtUFelSWV2X69cl3C6G ELcHLCcQYH5uOJ6xI6loL lnbjogbGVmdDsgdmVydGl mDMhiSTzuH640 IHRvcDsnPlBhdGllbnQgT rWzZWr3P4KbMmd1ULFthD cvQJ7dtDQlYBunHz6ivBe xrCnjIE0iTLPd lkvvp158ZiNzp6szMBAzl HNyLBxxRCY9L60js4U5VD HkEEGtOLB7qZU2eF0hmZy nbjogbGVmdDsg pvQdvTwbIIxwADsjF805S HRvcDsnPkJpcnRoIERhdG H4KC41OR53sEOez1S4iFJ 4A6RlSTRsmbjq dsdtqET4FKQdMAYwnM57O q7dfSzrOg9wKFRcAMA6HD OpjKHmS1FkwC5wXoJdAFH yHMMhI9JhpNDm OPcnA303CRgwPbE0NYSvr jSwL8MsEFMzyVvoFvB1e9 C0Rq4TV7U6ZV16WZ64iIY ps6E9mPC5R6Yd ZUZpvtpcqqqvjTE1EFLxF PDbvT36Td3vuKjnYy8tCL HqIVK3GYXazHAsZ5GbsM8 yOiAjMDAwMDAw Q7WxeLCxGSpiG472UWgvV mH6LXFtgoCmP8YxQVFctV raUuU4s5J1Yd4SQNy7BQ4 4GG87qOXir8C8 uYJ5V4VpLZClobfgdygas QD1GTRdSBEpvN03Pb5wxW ivDv7vKISyMMB4WEQadPF eA6GxoJ9vUuRi LYTyHZToC9WvfOCsWOgpC 773TEerSgD0KYNninSpL5 VcTWQkfOeiAiL8u0D6Ef3 EMGTyPJ03RDT9 kTE5RX19VQ95P0BzAkgmv GFibGU+PHRhYmxlIHdpZH RoPScxMDAlJyBzdHlsZT0 hJx0cGMNbJPHs lYkfcTTsDsMrz9tbDVAhI NdvQD6ebQqxY2YwwGN2RO Tln6n2Qk56M27uC6PfsFB +FTRyxRC9wGL5 nG3zMbOoUnB3BQiyE991V vBujZQqOwwml0yrg6mopH f4UsO8LQSauvPilQxwGDT 4r8JeJp05M94x IHdpZHRoPSIxNSUiIHZhb Jqlja4utI1aBx2+PGNvbC S7gPQ5yM6xRxJlBkO0QIl nA898KsBvwNZo Jqkhn2hto0wjtPm7UbFyK CZiksCyxDptEAO8k6XpBx 79O6TfuTgby7RpLer9nm5 9qDSns0A5kBY7 A0UyJCAjjrnieBHkaXucK A7yGDTucdebURSitN5sDV DhH8g3DoPhPyY2PNomZ9T tmkJ8YUIghGUj IBogYML3I96ae0X9ZLEiB LBlCQA6zPU1mH8fcXfpnv ogbGVmdDsgdmVydGljYWw dSWbyH914QJCo qGirQJGxaS9nPGNmcSJof ZdbOV1gCZEafzyaEkUVEY LABFkdMSRBZ7UKCHvKWMK gRzwvdGQ+PHRk ZGR8rLjaAVegRCFdaA0zL CSmE4r9KoUmHtA6AYicL8 SsVMWeqyheLr39jO2mRiR bWkK5KIzbM9Wk iqQ0LCOptSAcYNorWGL3O 44cf2I8WHZtGKDuYRR0wV L0xS8thNgdclplfFFnzQc gdmVydGljYWwt XUlkR651UMLszSuvYlSxB uA0ZzL0UHL5C7WnJub7JD WdnZgmUH1rgRXcBPvdLz9 wpUbpyIycOU1c LJZzydpjXQQelU2gRUYuk NPfnSirAP7pMTVvmwjxv5 90AnKtWOC5QYIvsSAgG3K rfI8tQmQfNMSl TNGgI7ErqITkWNfzV156R MaiUvP8NIQtbuTfI4VfVK CxfCuoKtL2k0V3Zf4oHkU ZZWFyczwvdGQ+ EIOnERL9zOepALstDCZiq Q1bYCJlA9d1CvBqKoE0FM dwK7QcTFXiesqdYo73cF1 dLuIqXrC6CZdi F6HhefB8ZACwyHQxSLliF QD5J77ou6D0HRLvPGArPK Z2hUS7pW8oaYngfqbwbAK mdDsgdmVydGlj BLpuVHemE901OARqmRccT kZlbWFsZTwvdGQ+PHRkIH U4gDflNIclZGXgxD1hVJT tT3w5IhRdQcM6 TBmkR1BgLXRwkfkeQi12y D6kJaEyUvK9THjfG4Msrn S8PHNddSXeADpfRQK0X23 qr7W0HUOoDPKj BTN3gRQ5vZ1luXaxtclvr GVmdDsgdmVydGljYWwtYW kmC618OWFipXceSdOxGAX zEJ7wjTijpHA+ BD76we03S4CgWotaQey2E SPnIVY8aBB1sC4yNYVxYS cda7B8oVG7T3LkozGtyx2 xh9drXPKqTIwr M24fgMPuu0Z1DYZjwCW0A NBvhLfbHkWqcK13Qih+PG WunRhwl8XaLjnlp2ija7u djJf6OvGqJWRi wdJdoMdbJZE5c3EjPj06P 29sIHdpZHRoPSIzMCUiIH OmhBkmfb4nmK0iKz8+PGN phEV3tZN1zL6b TrHgGeN5ITkgU577EwDsa NGtUnolx0bvl2zvyKo4Hc KnJWFphuNytEtzQJG9w8O kPm82E7WqmRvv x9GxAuq9dn93yWQme6H8u WT7O7NiIXPpoozpxKOecJ vhUT8bNCXgjwgbKHOplW1 hHOMgH1i7EhNc KmA5XMfwS9TrxdD6YWBra TJlURUwlCQZbN2mozelq7 ztpxmwAmObYDKfGKb1USx 0LWFsaWduOiBs BGG8NqQ7MKM5oQUbvD2ih TgjtlmtfX4cWbt+UGh5c2 kdaFSvDN7qmWI0DR05VN8 0uFKlx3A4gGO5 E5UdNDXxqddgtgadwJJ5Z FUeLKAynZ39Kb0tpWwyCw 4zKLOfXVX4DNSivLOtY1S udX8kVfKtQYBo YPMwC6KsbLTxXGkqZ795S ApwDfY3ICTuraTtK3BrXX YkbBdhFrV5m9Z3Dw8XIT2 8SX60VQ04yJGv g4L4lJG0A5WqZPIemtsox ampfKX0AWVpIMFyeR88Nh 8dkWmqWw4kJXVySWZ5WMC fqEPeB3AcjP4a ZmYlAILaKUKgX3MueQYyO CfuZ471STwxBmQ6VAZvld LlK5DbNHImeVkdFcJ5m2E 6Zc1HLg56JO80 SS48bBIur5Z2tTP5V7BkQ WOoncudatoccEY5JZDmPW CweT95Ux6izVudUk0cCDN zBEY1DEXzqXTc U3GcaB9gEqOgMIPxMCXhS 5AcpBNpIJdwV449XKlrZp M5BINovbYxN9UuRABmwFv bLpO7w0P6Yx5A TWavcml5T0OmTxgxfXX+P S91EVPnKZ58bDGkpJJod5 hiuXz6EmEnIBSpBYM4mGl hDIstp1WgIYHc Y29s (more content not included)... Normal [facility] ED Note-Physicianon 07-28-19 ED Note-Physician Basic [...] My Ultrasound interpretation: [] Decision rules/scores evaluated: [place] ankle rule, cannot rule out based on [...] Mark Pitts In 3 days 07/30/[address] [place] [phone] [id number] (1) Additional Instructions: Patient Education Elastic Bandage and RICE Therapy Ankle Sprain Attestation Patient seen and evaluated by the physician elementary assistant principal. Attending physician was present in the emergency department and supervised care. This visit was performed by both the physician and an APC. I performed all aspects of the MDM as documented. This report was transcribed using voice recognition software. Every effort was made to ensure accuracy, however, inadvertently computerized wax pumper mistakes may be present. Appropriate healthcare PPE [...] 1 tab(s (more content not included)... Normal [facility] Comment on above: Result Comment: Elec tronically Signed By: Juan Ott PA-C\.br\Date and Time Signed: 07/27/22 12:06 EST\.br\Electronically Co-Signed By: Saúl Gaspar MD\.br\Date and Time Co-Signed: 07/28/22 07:23 EST Consent for Treatmenton 07-10 Consent for Treatment [id number]#1 .00CD:127 Normal [facility] Discharge Instructionson Discharge Instructions [id number] .00CD:127 Normal [facility] ED Clinical Summaryon 2022 ED Clinical Summary [address] [address] ED Clinical Summary Person Information Name: RJ ELENA [place] Age: 32 Years : 1990 Sex: Female Language: Venezuelan PCP: Mark Pitts DO Marital Status: Single Phone: [phone] Visit Id: Visit Reason: Ankle pain-swelling; RIGHT [...] 07/27/2022 11:34:49 ADDRESS: [address] [facility] [id number] PHYS DOC NOTES: MEDICAL INFORMATION: Prescriptions Given: [...] Ankle Sprain Follow up: With: Address: When: [place] [id number] Business (8) In 3 days 07/30/2022 DIAGNOSIS: Ankle sprain Normal [facility] ED Patient Education Noteon 07-27-2022 ED [...] your activities and whether you should start syxdz-dw-flslua exercises for your injury. Ice Ice your [...] 12/16/2002 Document Revised: 03/16/2018 Document Reviewed: 03/16/2018 [email or web address] Patient Education ? 2019 [employer]. Ankle Sprain An ankle sprain is a [...] the cau (more content not included)... Normal [facility] ED Patient Summaryon 023 ED Patient Summary [address] [address] Patient Discharge Instructions Person Information Name: RJ ELENA Age: 32 Years Arrival Date: 07/27/2022 10:09:44 Discharge Diagnosis: Ankle sprain Primary Care Physician: Mark Pitts DO Provider Information Primary Provider: Advanced Bureau Chief:Juan Ott PA-C The exam and treatment you received in the Emergency Department were for an urgent problem and are not intended as complete care. It is important that you follow up with a doctor, nurse practitioner, or physician?s elementary assistant principal for ongoing care. If your symptoms become worse or you do not improve as expected and you are unable to reach your usual health care provider, you should return to the Emergency Department. We are available 24 hours a day. RJ ELENA has been given the following list of patient education materials, prescriptions and follow-up instructions: Follow-up Instructions: With: Address: When: Mark Pitts [address] [place] [address] [facility] () In 3 days 07/30/2022 In the event that this physician does not participate in your insurance network, please consult with your insurance company to find a nearby participating provider. Patient Education Materials: Elastic Bandage and RICE Therapy; Ankle Sprain A MESSAGE TO ALL PATIENTS REGARDING OPIOIDS PRESCRIPTION OPIOIDS: WHAT YOU NEED TO KNOW Prescription opioids can be used to help relieve twfnhjsl-gp-mvxvwb pain and are often prescribed following a [...] be struggling with addiction, tell your health day care home provider and ask for guidance or call [employer] National Helpline at 0-302-638-HELP. v Source: (more content not included)... Normal [facility] Prescriptions/Work Noteson 0 07-27-2022 Prescriptions/Work Notes [id number]#1 .00CD:127 Normal [facility] XR Ankle 3+ Views Righton 01 -18-2023 [...] MD, V. Transcribed by: ESTEVAN Technologist: CHARLOTTE Márquez [facility] Coding Summary.on 04-18-2022 Coding Summary. CD:[id number] G h0bWw+PGhlYWQ+VF0DVMT nR76apKIovK6ZD7kYGY7T DYHMGQYOTU5MXJ7gsQI3R NmkY4LilpEf FuigyEVbIL25UEu2SCE3w KuoMAayfK3jlMOmO8c1Wm ApQP11mF53KAefEKVfLxA 3LjZpbjsgbWFy T3lvTgEmeJEpRbz+PHRhY mxlIHdpZHRoPScxMDAlJy GdzTwrPH7oCa9sVUVhJRA vbGxhcHNlOiBj c3jdOLJzFGtnOM9aqSpyZ 3VfuOZ5JVEhy6g7Wl33lZ I+NFTgNFF5pMltHDepr82 7CtTis9laCFD8 dLCvFPqlNCV4I93cm7O8G HWcKYRsJEG7fSC7nU1xnQ hldirxQ9ZrpOTyZcS2IAZ 4rJMmcC9umJek fyfszS8tQzh+F53INH5IK GKRQP3NGfw0X9MeAtfmdT I+OO77KCAbHZ77hXYjbXE gl9lxaVg7IrSj PWHhAYA1oVldYUcpt9PsS TXjS98ppBDzx5G2TUQqxS uzhEBgYaNcmHL0dK3tQGg khykds2uoldyh Ivqxt7kbdh68qC66J12yU TodKGAoZPX6VKCwYTKlkR yrtm2zkJ0qCq6+VEglj5e sv8vprSb8SlZw ESZsfoHjqArlBCW5m1JjU s61D4VokPqve9MvFuo1hp 52zNScy7Z2jHX6YEljDUT xdO2oXIywVvV4 RUShHvPmrJ83jPKpXCipB j8qxGbgfDujHN7dCIFmih ioEASfvH8wMLCuoXYpoSd tFO5nLNJgnuwx y772SdYuTAV7KANdgLLcQ 8EybZ9nUtRmSOYqKZSsY1 JjyWGrCMhfW199HKxzMnF 3NIRsquQbR4Qb DFPbrOioYlE3a7V6Fo9Qj 8SwpaibCQS3JZcnAYDpZd EjLpSlBkB6A0OdStq8MPR eiPjhFL9cL7Hb TEAyxnbruladqAK6XVIbK PZksC28eJOyAZodGz5uv8 T9p396YRRaQKNhtY57Vp0 udDogMTBwdCBU tG6vijmtr1vvlrlxLrMiD BEzILs7CGb5JFDuxLuhPl GdQFI0YyS3EQM8iOCylZ4 drVggbtdzxO4x Oyc+S70wfC1zQRZ8TBX4e bbqODCkrwUbAC44ZN14J5 RyPjwvdGFibGU+PGRpdiB adOkmEB0hLkQs b8ybd8UcDLnaW3IfQZDgP HwjAem4UAVqKAS5lMR1qF 7dFOOyZOazo2Z3zAU1V5M tcrXlvp6mg8hl DAPjEYdzD29lyJSpf7D7Y WKzyQW9NFZijFprTjHyxW 93Oyc+QQYirYeao2ErRqi yh5ceg9dmmXc3 NjJgFBVhuyRfvXjsHTX4d 6QdPu88A55vLTrzQADgFQ UdUITtEIJtrUfvnx7svC1 wIi8+PGNvbCB3 gBN2aR4wGXRaKjE0XWgqL 748RfNarGZuNjqrg3xma9 vpfNn0PvOgUMSsqtDggTo hWXU5l2TwBb47 D14hIUiwWUVsJKYuRUZhP OGilQiqdq7lyM5gQj8+PC 8cp8avpq09zY12nGA+PHR jAVE6iPhqPIgl NUIrtU5pOZasEdG8NMVqA tPuiX17yNGaBCqdCg9joC mwtCzrDP2pUUEytmohe62 8BpGsi4icHYIw fXAiVDadWCM4V90us0V6Y ROzMVPcXYL1dQW7bL2kxS lnbjogbGVmdDsgdmVydGl pUFpdMYvvO501 IHRvcDsnPlBhdGllbnQgT aDpNGi3S9AdPed5YNPcwD bnHX0poLJqOTijZd9xaWo voRaeJY4cDFJe nkheb971DoPak9izSPGed YUzEZwvRUT3U99po9H1TH OfKNZpITF0tIL7uD7gxNd nbjogbGVmdDsg smIaiPzuRRzfMWhrL826M HRvcDsnPkJpcnRoIERhdG Y2YT03GO04iZJgp0R3zWE 5U2NcWCCksqtq focaaGE0JGGxMJNadL15G n8ulJxvOi1uKCJbFSF6TX QuuVBnQ4WmwU6qNiPgZJX pHEVwI8BqcHUb VQpjI157BLwuDlA3KKTvz aZhK5XsBXFreKkcFzL0x3 T7Ds5IE6K7GC58CV06iAX un3Q2kIY1L7Hx RVTvataufchnmPL0JEOiT CMijI81Cv1usOcdHp6eWS BtZYY2BRWteJSgB4AedO1 yOiAjMDAwMDAw L7MaxFObOWocF430YKehJ sQ7SGRudkHmE8RmBLRieV peLrJ1d7Z5Vx8NIAg0IL0 8NT45kFFue1K2 eYR7L2BnWCFcyrnxnywbs XB7PVKgRDRuvN40If3rnA weRu0bEPNeRZS4PKXnwQT xZ7GivD1pAsOq KGJbERTxJ7PxqGQiCSduF 620XLbxBoS1PVXedwCjJ5 KfOVOzeQzoYoY1g2P6Fd7 TWJLqKX65LCZ3 dZM9RI00AI77O9FeKynhu GFibGU+PHRhYmxlIHdpZH RoPScxMDAlJyBzdHlsZT0 aIg9nMWMvAHSc dZtdmDTvIyPew5pfQLPbE MppLU6ikKpbB8XepLF3ES Sal2l0Vn80L78hB4EtfXV +DWBcwTJ4vZI6 zB7gBkSsUkB0LFjnS018Q mGaaYEpJefsv3nux5wkgK k6BzG3NEQwafWqkEocJKA 7h7NgRf61T45i IHdpZHRoPSIxNSUiIHZhb Jkisc0gzL4tYu0+PGNvbC Q8xOX0sH3qQvQqEkV9HCh vB700TyPijKGk Atezy8uap6ixwZz4RjQcA XMvzgVjtVlyTMG9m3RmNm 86W7JyyWpxf2QqPjc2sa3 1jIQsh2W5bOU2 M4NqEVUtpowvzRArzCmaW S9iCFOmchauXIMaaW6bXN JgC4m9MyBnFpK2RYgfH2C yldG1FVNrlILp FHymZTC2Y19vh4O1USUpD YQlRFS0dUC0iR9yiRaagd ogbGVmdDsgdmVydGljYWw tQXlvJ508WDUh cXdxDHYgtN8mNCQspKHmm GizJN4gTOWwckbgUjFPUM QLOAzdTXQTU4SRBUrSIWM gRzwvdGQ+PHRk GOH4iOpiOLbqERLxkP3sI QKmJ0s9ThCbVcV5PNkiT5 OqLZHtdujvIu09nL1rHgR eMnO9KPugE5Xp nmN4IXPysSSeUVebCUU4N 14tq4I0EBXjMQMzLMV2tM H6rI7raLzodakzbPFysHu gdmVydGljYWwt RMoaD558PUIijHtgWtQmN qQ5TpC8EVW4U4FmEhw2NZ WirDbqAU2ugSNuHSszZi9 hdDawiZdyJV0h RIYakbftRSLxgW3aJUWzy CSpaCjmQE2lTNLzovmxn8 23GgOePVY7YGPrjHNeX5A dgW4aUrAvGZQw JNIkL7PlpMPfXIqrM865I MpgPlY8PFTwwkLnL4HsII GxmHrwEcR8h1N1Dw9iVkR ZZWFyczwvdGQ+ KCUoCZZ4nOsqHFulTUTsp I6vRKZsN3w5UcMzEnU6XU ptA0IyLCNvppdqRe53jK2 iFlIjHkJ3KDjj P8VejvZ1PTGvsNAqIPgtP PC4W00er0Z9NHMdYUItEA W1xFZ0xK3bkChikekdnYL mdDsgdmVydGlj RXbtVWrjC780UQKhxWpqI kZlbWFsZTwvdGQ+PHRkIH W3vInxJHzgLTJuqQ9zMGE rG7i2NaEyOgC5 JUdpQ8DpSVEsuhplOk16c M3hOrIsWiT8EJvoA9Ofqh A4VRQibNPaDEjcMUT9K36 mk9I3BXYiQTEl OXZ4bLU9bT2rpZcmxxbut GVmdDsgdmVydGljYWwtYW fqR938OPVbkOorHrIeRKJ jVJ4ibFmbkBP+ CO34et07U6RmIvkaCek8D ZJcZIP4uRD7zJ2cMPVtFJ kfh8A8pED1L0YysqHrjh1 fj3wdPMAsDLlv J06baCEkg4W7RAKkwCS6I OTxrGyuViUmpC91Lop+PG CkrYlqh9CnXwzgc3svz5f fsSw0CnGyWVVp lhMtvPpbHFS8b2BxKf17A 29sIHdpZHRoPSIzMCUiIH TkjUitbd7osX3tFf6+PGN ubFT6rBR5qH3y HmDqKrW7PBugI508TjPaw HHjJntmi1jtb7hohSw6Ak MjSDUwywVsrIlxFOK2x2Z eCq06V4OebWff k9JqZnf4aa94jBAzw1P4q DA7N0BrMWJyengfdRNwdG upPZ4lENChniwzAACtkL2 uMNXtG5z9QbJi XfS0BVqpW5KcyeN1WLGtv BClHHSunQBNmG0xkoxdj5 lmcwzmMqDvVAEwHTu2YLa 0LWFsaWduOiBs PEK1XdE8ARR8nQEgcO9ad SkunmflfA1gKcw+UGh5c2 kjgDPhZU4bgDF4KB58HY7 7fCIvz4Y5jBF1 M8TwFNAjjnivdwwrrQF0M YMvMSCvzH78Sf5oyKnfJh 3jJEVgAFH4JLEbvPPwV3O sxQ9cCxBsMDTm KSMiE0YzcCNaJVdfS711V TiwBcC4XLHzewNyL5TdHV KegQdnCsB8v8Q0Dr6UVW6 5NR28UO88aAOg n3J0rZE9I1LlOXKkoilqb bactGU1OWEhTTNsfJ14Ig 4nwLkhPi6kCYMcMPJ4HTI hqQBsL7CddJ9t CgEcYIHjVTGtL2HweKDjE GmwW674QSwiGcL1DYDtcu OaM0SqMBUmwEojTfX9f2K 1Tk7UFc05II36 FQ84qTVee8A0uUD8K6CnU QQwknawhndmkOY9YFXkQC UryU34Fp1viTzuJe7wLNT uJKN1AWTuzRSl S9JcgK4fJfVkVJVrSNYoT 3ZfwTFfSPeqB014IAdhXx G9TIUggxFqL0NmMPNgbEv iGeC5x9U0Yq0N IJcqism8T8LyMoalrQY+P K91IIFiJW17eKWbiPSoy6 fplXh8XgQpOVBkNVV5xDj tMRvbr3GjWGOj Y29s (more content not included)... Normal [facility] Coding Summary. CD:[id number] G h0bWw+PGhlYWQ+UJ4DYOY eL66gxWEukV2NE7aYBX7C FLLOIHQFVK3ZWF6xeLX3Q PlwV8KgmtAz VresiJUsLF80BAr4DTF3j RvfIJzbcI9wwROoU9y3Sj SdYJ88cN01AEgvBKImSsI 3LjZpbjsgbWFy B0kmYkFufASmQkd+PHRhY mxlIHdpZHRoPScxMDAlJy NnkMyxRG2pPp1rIVFlWJM vbGxhcHNlOiBj g2tmOUVzRRlmAR9nvOhoU 5UovUA4PNAry5q1Ur85fA I+LOGmFTQ0zXzqNRgrg43 0HhBgz6hvILB2 ePIdWMcrQHX1W96jz5F4S IBeJJEdRPQ5vFL6sB2kvT xqhbcyD7XfrYCkRcS9SMA 4pIVmyO6gjSkr yifjsI5kAxn+E67OVN4ZN MRWMG2RKso8B6ZsXvxtqS I+QT70UOPdDE64cGTwiXB lp1qdsTz4JqZa HLDhPYU5lDurVVnjy0ImN DIgT33zmRRxl5E7HJRkuN lcwYOfWhLqkWR8jG9xOTv lfewxm5mcxpst Jbumt9ksib55hW88M64mZ EwzGSBoGEW8OKHhYNRiuC ncvk6qvH7zHa6+FIqsn6m fb0nmqQr8FgAb AWWwatEmyVcjFHO9x6ObO j26N0WvlThwj4ZuEix0du 45bHJel8X3oZB6UAjxDJI qzO5eOPxoAlV3 UFYcRgKmzY90kVOhHCydR a6odPtspOcrAE0uVMQwpk yvSWMwmY4fVYHarWNnrMo kOD6eXXEuquub t495TzJxVCD0QIZjiRBmI 4NfiC9bUhAjJFGjIIBnI9 DpkZNsBGtaS487XBuiZkS 4XXChzuUpZ2Yc UEJisXldSwQ8f0B1Uz6Zb 2IeynpkMKY6HIkeZPYzSl KwEkRoZkQ1E3PlXbx8VPB ttJunFC1yC1Sk JBNrskofwfbdeCC4ZRCtF IQeuG25kCJlGWrdKf2in2 K0l582VLJvURCldA17Pe4 udDogMTBwdCBU gA7xnjhaq3xkabhoKfUuZ TFwIHh3CLz0FFQcdOzgWg XjDWK4GxW3AUZ2pGLboB2 ppZprolachE0k Oyc+V07qpI3aTQD4VQC7x sjjDPHwqrInSL21KH31K1 RyPjwvdGFibGU+PGRpdiB fkXptTP8sPeAo b5oop6SsLEbyN0AbCGWyW YckCls8KSVkHGF1bLN0eO 7vAZFxMYflb1K7gAL2L0G ghiUtnl6vx3fr RAWyVEbnD73cnNMhu2S4K SWgnSE5QMPzeHlzXzZkuY 93Oyc+BSMeaNqwv1LrKxh ep1rkg6ezqKf9 TsKkWOFtkxSntEshYQK1k 5PjNf94C17rBEwzNPEpZY ZxSBYtCKDbcEzahw8sdP3 wIi8+PGNvbCB3 pWQ9mY5aTQSnOyA2FWjmS 342KuUinAYbJedfo3odu2 qcsYw1TmEkQGAkgvVqrMv sAWL0w6KtNe25 R84rLYquYYZeMAHrWBVnH PPbeVkldk3wbX6pBx3+PC 3we0mofv49tW67wNB+PHR oCZF2ySenNKwc YIUqlV5rOKqgGgC9GTOqT aHfzC04gMGtRRvvYg5nmF gnwIbrBN9vNXZjtddib55 3KaJiv8czTDFp lMOwGPhjYUX8P95lq0M8U FDxVMKpTXG9dJU6tN8gqF lnbjogbGVmdDsgdmVydGl mFPvuCGawA133 IHRvcDsnPlBhdGllbnQgT mAuDSb0B0KdEpi9WDSoeY cbDU8ufHPaRGjoPa4tmDk omOgaDH0jJXPs dsnsi082FgPxz2bnOCTfa EYpQMnyPXV2J96lo9R1RP OrERDsMOP4oBW1xQ1rsNe nbjogbGVmdDsg acVtlWgpDJfhYYbiW757X HRvcDsnPkJpcnRoIERhdG X6UV35AK78tPHbh2Q1dFZ 3F4DhKCEmtyhg nbsbgOY7VRBsYBEryQ24R q0fyDvjSm0cOGCjNKI1GH JpdCTtP9ZtvV2gJyNbJXQ cNUAiB4VsuUEf FQjcJ114XByoUjP6EEZpq kLpS8VwQKEqaWifApM2j0 I9Kj1FA3F8BU74RQ45fHQ kr3A0hNW5T3Ut FSYiumqhgqhfxAH7PLCvL ERghB95Lm1ctNybIt1eUF BqUTD1EXZnpSRnN7GybX4 yOiAjMDAwMDAw P6YdkTHmGIxgZ701KNpmR oR3THZmfvGmY8PaNMIelC ksUhB4e1W2Jn7VHQh7HY6 6BL47hTWaf0D0 fVA5B7GuBFSevtwhatqst ZC0KMLoVYJusN33Nn3irF zoRf8cPWPsPVU0OAAbnOX qE5ZvgT2fNbQj HPSkYFHkI5MpbIAmWSfsI 416IXrlSaD5SCNesrMjH2 FtXAIsuSpaPtI0r5C2Ed5 EBCIrZF65DEJ6 rWM1XA97GS64A2YvPxeom GFibGU+PHRhYmxlIHdpZH RoPScxMDAlJyBzdHlsZT0 kNo7xTWIiQFUd oMtbcPFyPpBjz3pmOBZkW RewKP7nvAezN4WlkHL8JX Qwz3x4Zg75L83dV3HwrDC +BFUymPV6rSR9 nW6dFjZqIpP8ECdlS213O eDsbIXxKtftd2zhh1ygbJ t5MfP1GZCfsmQyaLwwTMX 2h3YhKg45S45c IHdpZHRoPSIxNSUiIHZhb Puedu6dpM0qQr4+PGNvbC F4mTS8vG3jVcWzPkQ0IPx wP727MsGdkWJw Phinn9qag7apbEe9OxYfV NObgnOesHeqESX2r0EbPr 92W3XfxYzqs8ThMhs1jw4 8cFFmb7I5hBQ3 Z0ZeBNMuelsvqUOlaSayQ O3hHTMrxspeAHEbyT3cSR WvL1x6WhNlGuW4XXnwB5K lkjB2NSEncCNx XGbwDQK4E56qn2Q0IPPnF XSgABO2nPF6hC4vhKuvrq ogbGVmdDsgdmVydGljYWw pAFbpJ313VGKa dMzsCYOjtD9vKZPyiHBqe WprPV8hEDLdverwVnQHAU FHVCfhRWLSJ4BTOExWPTZ gRzwvdGQ+PHRk NTE1lLvoTJvvQISpjL2rC MErA0h1YwVwEnZ2UPfiR0 IjAQMecifgNh50cG4mWdV qVuZ9PYtkC9Gn rvM6JPBdqJOvGWgpYLG2Q 22ae5Q9PMMkYTAzEXX4rG H9yX5dcBbtvpqqgPUqjRy gdmVydGljYWwt ELkyY422JIIaeOfaAwDpE zR7LoQ2GMD6T8SgTho3FH WlyOvjLS5egNSvXEfqMx8 ynXbjlLnaIR5z UTDibicgDMOevQ4zXKDno JVieRxkKU8dIHKoofxko2 97CmIrWSR0RGEuaQWoH7A cnQ1cJkQuUHFj KDEiB9MkhMBxSWzkY547U WpuSyB6VCAknbJzN9QuYE IrtIdcAbE7y5Y3Yv0vYgF ZZWFyczwvdGQ+ WJVoHBW7qBvlQIcsOIAzw A1mOVAjH4v9ChIlFwC0RH ewX3MgBBRbkjheYk83oY9 aVjAwFmC3VRvb C4KvppE6WJYcoSCpYMwxB QX6W17ew7X3PLSzVQAjXO T8kYU0wS9hmBiksmgdmMI mdDsgdmVydGlj PApqXPmeI081CTZzkRmpS kZlbWFsZTwvdGQ+PHRkIH K4xMwcGMmcBWWigY9iQYU vQ1y4AqMmWcS2 HVklH5YvSRHmpsagMj38s H7zClKfKoZ3SDxbZ6Cdxl U3UZBjkLGiONciVFJ6Y52 wx3K6ENPeSSYv HKQ4bQV5eA7gvMbshxweo GVmdDsgdmVydGljYWwtYW yuH989AWSevTnvYqPgEVV jPX4acKfgyMU+ XA77aq21J1PkPpjiVkp0J JLjFUW7mDX6hQ4zMDCzIM yig1D3rBG0N4YtfdOppm5 pc2ryKZBcTKsz C32hrOMjf0Y6PDHpnVD9G XDhsRsyIpXslU09Jpc+PG CksCtut1HwHtjmk5hwr7t atPd2FdSwNLOa ptNsaEmfKDP1r8PpFa46N 29sIHdpZHRoPSIzMCUiIH CioMephu5pnF6zYt5+PGN dyRF2qUH4yN8f JwXxPcD7WNztK357NqSgu TVgMperr4smc3lywKz8Ob JpKQIkptJeeZcvBFU6i4N aPo76I7TliPwz e2KiTtn5em02yNSya7Y0o VP9U1PpXEHbivhugNJnnN llYZ0dHBEcdlytDYVfxA5 iRUNnR4j3ErYc RgW5GEypQ9JqcqR3CNQvu EFoTYWahNSLpG0fxsxen5 ygtpxePcRkMSKcOMe7OTw 0LWFsaWduOiBs CKF0RdI1SNN1tDFpgH1xx YpawzyxkR3vKhz+UGh5c2 hmvATmKE0yfXL8MA99KK7 7tLXpw7N2aWU8 Y4WzIZSjttqfuiogjLW0P ZDjMTOybO54Pn7wxNsfZh 2rFEUkJRA5JPFmcJRiI4R uaA7wDwXdJCBg YFGoK6AttFMzLUhuA904B ZczWlO9PRSoxpCiI7VzNE HjlFafOzY8u2Y0Rj4UTV0 0FE83CI25qRJm a5E1eNW2B0TcNPEgnedwl uyouEV3HTCeDKOctT86Ec 4iuTdmDi1kCDXaGWU2JGZ euGJuG5LfeA8p NoNvMFScHNUaM8XkyBBsF VntR897JRvtEaO5GBDjwz WqA2FwQURenGhiWpA1i1Z 2Il1IUv42SZ00 CB50aZVgx2X9uCW7I5SnK IIsmpcxqhkjjOG9GGPjEX IbbJ05Xg7ahQlbXl4wEPA aQFO2EAYvoRUg J7DydT0qAtRzBMHoBXKpN 3NvxJKdBYteD051EBksMe O5EZTnqeIuO3BnBOPqlGw dOeA4b6E1Nh9O PEpgocr2O0NsFvnbrVX+P C73CTEmXB65kBTjiCUvu7 jzjXl4RhBiXKCqQBU3dMc fGLlyv8JqEVEi Y29s (more content not included)... Normal [facility] ED Note-Physicianon 04-16-20 ED Note-Physician Basic Information Time Seen: Robinson Galvan PA-C 04/14/2022 14:53 Chief Complaint pt c/o allergic reaction to possibly motrin. pt was having swelling and redness in the face and tongue. ppt c/o sob. 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 History of Present Illness 31-year-old female comes [...] mg= 3 tab(s), Oral, Daily Follow-up With Shital Contact Information Mark Pitts In 3 days 04/17/[address] [place], [place] [id number] [facility] (1) Additional Instructions: Patient Education Anaphylactic Reaction, Adult Attestation Patient seen (more content not included)... Normal [facility] Comment on above: Result Comment: Elec tronically Signed By: Robinson Galvan PA-C\.br\Date and Time Signed: 04/14/22 18:33 EDT\.br\Electronically Co-Signed By: Saúl Gaspar MD\.br\Date and Time Co-Signed: 04/15/22 23:22 EDT Consent for Treatmenton Consent for Treatment [id number] .00CD:127 Normal [facility] Discharge Instructionson Discharge Instructions [id number] 1.00CD:127 Normal [facility] ED Clinical Summaryon 2021 ED Clinical Summary [place] [id number] ED Clinical Summary Person Information Name: RJ ELENA Calista/[facility] Age: 31 Years : 1990 Sex: Female Language: Venezuelan PCP: Mark Pitts DO Marital Status: Single Phone: [phone] Visit Id: Visit Reason: Allergic reaction - [...] 04/14/2022 19:42:49 04/14/2022 19:42:49 04/14/2022 19:42:49 ADDRESS: [address] [place] [address] [id number] [facility] DOC NOTES: MEDICAL INFORMATION: Prescriptions Given: New Medications [facility], [address] [place], [place] [id number], [phone] epinephrine (EpiPen 2-Ze 0.3 mg injectable kit) 1 Each Intramuscular As Directed. May substitute for another brand if required by insurance or inventory. Refills: 0. famotidine (Pepcid 40 mg Tab) 1 Tablets By Mouth once a day (at bedtime) for 7 Days. Refills: 0. Medications to Continue Taking That Have Changed [facility] 1986, [address] [place], [place] [id number], [phone] START: predniSONE (predniSONE 20 mg Tab) 3 [...] Reaction, Adult Follow up: With: Address: When: [address] [address] Business (1) In 3 days 04/17/2022 DIAGNOSIS: 1:Anaphylaxis Normal [facility] ED Patient Education Noteon 04-14-2022 ED [...] Symptoms of anaphylaxis may include: ? Feeling guillotine trimmer the face (flushed). This may include redness. [...] have hives or rash: ? Use an qdgs-bwk-ssjzjst antihistamine as told by your health care provider. ? Apply cold, wet cloths (cold compresses) to your skin or take baths or showers in cool water. Avoid hot water. ? Take fvtk-dsr-ynoeomd and prescription medicines only as told by your health care provider. ? Tell all your health care providers that you have an allergy. ? Keep all follow-up visits as told by your health care provider. This is important. How is this prevented? ? Avoid allergens that have caused an anaphylactic reaction in the past. ? When you are at a restaurant, tell your ware server that you have an allergy. If you are not sure whether a menu item contains an ingredient that you are allergic to, ask your ware server. Where to find more information ? [place] [employer]: aaaai.org ? [place] [employer]: healthychildren.org Get help right [...] medicine s (more content not included)... Normal [facility] ED Patient Summaryon 022 ED Patient Summary [place] [id number] Patient Discharge Instructions Person Information Name: RJ ELENA Age: 31 Years [facility]: [id number] Arrival Date: 04/14/2022 14:45:02 Discharge Diagnosis: 1:Anaphylaxis Primary Care Physician: Mark Pitts DO Provider Information Primary Provider: Saúl Gaspar MD Advanced Bureau Chief:Robinson Galvan PA-C The exam and treatment you received in the Emergency Department were for an urgent problem and are not intended as complete care. It is important that you follow up with a doctor, nurse practitioner, or physician?s elementary assistant principal for ongoing care. If your symptoms become worse or you do not improve as expected and you are unable to reach your usual health care provider, you should return to the Emergency Department. We are available 24 hours a day. RJ ELENA has been given the following list of patient education materials, prescriptions and follow-up instructions: Follow-up Instructions: With: Address: When: Mark Pitts [address] [place] [address] Business (1) In 3 days 04/17/2022 In the event that this physician does not participate in your insurance network, please consult with your insurance company to find a nearby participating provider. Patient Education Materials: Anaphylactic Reaction, Adult A MESSAGE TO ALL PATIENTS REGARDING OPIOIDS PRESCRIPTION OPIOIDS: WHAT YOU NEED TO KNOW Prescription opioids can be used to help relieve xdrbmhgq-ex-urcxyf pain and are often prescribed following a [...] be struggling with addiction, tell your health day care home provider and ask for guidance or call SAMHSA?S National Helpline at 4-837-436-HELP. v Source (more content not included)... Normal [facility] Covid-19 PCR (CVDTBH)on SARS-CoV-2 (COVID-19) RNA YARELY+probe Ql (Unsp spec) Detected Critically abnormal NOT DETECTED [facility] Comment on above: Result Comment: This test is not yet approved or cleared by the [place] FDA. When there are no FDA-approved or cleared tests available, and other criteria are met, FDA can make tests available under an emergency access mechanism called an Emergency Use Authorization (EUA). The EUA for this test is supported by the Selvage Machine Operator of Health and Human Service's (HHS's) declaration [...] longer be used). Performed By: #### [facility] #### [facility] [address] [place] [address] Dr. Tj Wild CBC AUTO DIFFon 07-05-2021 BASO # 0.0 103/ul Normal 0.0-0.1 [facility] Comment on above: Performed By: #### C BC #### [facility] [address] [place] [address] Dr. Tj Wild Basophils/100 WBC (Bld) 0.1 % Critically low 0.2-2.0 [facility] Comment on above: Performed By: #### C BC #### [facility] [address] [place] [address] Dr. Tj Wild EO # 0.0 103/ul Normal 0.0-0.7 [facility] Comment on above: Performed By: #### C BC #### [facility] [address] [place] [address] Dr. Tj Wild Eosinophils/100 WBC (Bld) 0.0 % Critically low 0.9-7.0 [facility] Comment on above: Performed By: #### C BC #### [facility] [address] [place] [address] Dr. Tj Wild Erythrocyte distribution width (RBC) [Ratio] 17.2 % Critically high 11.0-15.0 [facility] Comment on above: Performed By: #### C BC #### [facility] [address] [place] [address] Dr. Tj Wild Hematocrit (Bld) [Volume fraction] 36.3 % Normal 36.0-48.0 [facility] Comment on above: Performed By: #### C BC #### [facility] [address] [place] [address] Dr. Tj Wild Hemoglobin (Bld) [Mass/Vol] 12.3 g/dL Normal 12.0-16.0 [facility] Comment on above: Performed By: #### C BC #### [facility] [address] [place] [address] Dr. Tj Wild IG # 0.08 10e3/ul Critically high 0.00-0.03 [facility] Comment on above: Performed By: #### C BC #### [facility] [address] [place] [address] Dr. Tj Wild IG % 0.5 % Normal 0.0-0.5 [facility] Comment on above: Performed By: #### C BC #### [facility] [address] [place] [address] Dr. Tj Wild LYMPH # 2.2 103/ul Normal 1.2-3.8 [facility] Comment on above: Performed By: #### C BC #### [facility] [address] [place] [address] Dr. Tj Wild Lymphocytes/100 WBC (Bld) 13.8 % Critically low 20.5-60.0 [facility] Comment on above: Performed By: #### C BC #### [facility] [address] [place] [address] Dr. Tj Wild MANUAL DIFF REQ NO Normal [facility] Comment on above: Performed By: #### C BC #### [facility] [address] [place] [address] Dr. Tj Wild MCH (RBC) [Entitic mass] 26.6 pg Critically low 26.7-34.0 [facility] Comment on above: Performed By: #### C BC #### [facility] [address] [address] [address] Tj Wild MCHC (RBC) [Mass/Vol] 33.9 g/dL Normal 29.9-35.2 [facility] Comment on above: Performed By: #### C BC #### [facility] [address] [address] [address] Tj Wild MCV (RBC) [Entitic vol] 78.4 fL Critically low 81.0-99.0 [facility] Comment on above: Performed By: #### C BC #### [facility] [address] [address] [address] Tj Wild MONO # 0.7 103/ul Normal 0.3-0.8 [facility] Comment on above: Performed By: #### C BC #### [facility] [address] [place] [address] Dr. Tj Wild Monocytes/100 WBC (Bld) 4.6 % Normal 1.7-12.0 [facility] Comment on above: Performed By: #### C BC #### [facility] [address] [address] [address] Tj Wild NEUT # 12.9 103/ul Critically high 1.4-6.5 [facility] Comment on above: Performed By: #### C BC #### [facility] [address] [place] [address] Dr. Tj Wild Neutrophils/100 WBC (Bld) 81.0 % Critically high 43.0-75.0 [facility] Comment on above: Performed By: #### C BC #### [facility] [address] [address] [address] Tj Wild Platelet mean volume (Bld) [Entitic vol] 10.3 fL Normal 9.5-13.5 [facility] Comment on above: Performed By: #### C BC #### [facility] [address] [address] [address] Tj Wild PLT 254 103/ul Normal 150-450 [facility] Comment on above: Performed By: #### C BC #### [facility] [address] [address] [address] Tj Wild RBC 4.63 106/ul Normal 4.20-5.40 [facility] Comment on above: Performed By: #### C BC #### [facility] [address] [address] [address] Tj Wild WBC 16.0 103/ul Critically high 4.0-11.0 [facility] Comment on above: Performed By: #### C BC #### [facility] [address] [place] [address] Dr. Tj Wild Covid-19 PCR (CVDTBH)on 06-10 SARS-CoV-2 (COVID-19) RNA YARELY+probe Ql (Unsp spec) Not detected Normal NOT DETECTED [facility] Comment on above: Result Comment: When diagnostic [...] for this test is supported by the [employer] Operator of Health and Human Service's declaration that [...] used). Performed By: #### C VDTBH #### [facility] [address] [place] [address] Dr. Tj Wild D-DIMERon 07-05-2021 D-DIMER 6.07 mg/L FEU Critically high 0.19-0.50 [facility] Comment on above: Performed By: #### D DIM #### [facility] [address] [place] [address] Dr. Tj Wild D-DIMER COMMENTS SEE BELOW Normal [facility] Comment on above: Result Comment: Incr [...] hospitalization. Performed By: #### D DIM #### [facility] [address] [place] [address] Dr. Tj Wild PREG HCG QUALon 07-05-2021 , QUAL Negative Normal NEGATIVE [facility] Comment on above: Performed By: #### P REG #### [facility] [address] [place] [address] Dr. Tj Wild PROF 14(COMP METB)on 021 Albumin [Mass/Vol] 3.5 g/dL Normal 3.5-5.0 [facility] Comment on above: Performed By: #### H STROPN, CMP #### [facility] [address] [place] [address] Dr. Tj Wild Albumin/Globulin [Mass ratio] 1.1 {ratio} Normal [facility] Comment on above: Performed By: #### H STROPN, CMP #### [facility] [address] [place] [address] Dr. Tj Wild ALP [Catalytic activity/Vol] 56 U/L Normal 38-126 [facility] Comment on above: Performed By: #### H STROPN, CMP #### [facility] [address] [place] [address] Dr. Tj Wild ALT [Catalytic activity/Vol] 21 U/L Normal 9-52 [facility] Comment on above: Performed By: #### H STROPN, CMP #### [facility] [address] [place] [address] Dr. Tj Wild Anion gap [Moles/Vol] 14.4 mmol/L Normal [facility] Comment on above: Performed By: #### H STROPN, CMP #### [facility] [address] [address] [address] Tj Wild AST [Catalytic activity/Vol] 27 U/L Normal 14-36 [facility] Comment on above: Performed By: #### H STROPN, CMP #### [facility] [address] [address] [address] Tj Wild Bilirubin [Mass/Vol] 0.5 mg/dL Normal 0.2-1.3 [facility] Comment on above: Performed By: #### H STROPN, CMP #### [facility] [address] [address] [address] Tj Wild Calcium [Mass/Vol] 8.7 mg/dL Normal 8.4-10.2 [facility] Comment on above: Performed By: #### H STROPN, CMP #### [facility] [address] [place] [address] Dr. Tj Wild Chloride [Moles/Vol] 101 mmol/L Normal 98-107 [facility] Comment on above: Performed By: #### H STROPN, CMP #### [facility] [address] [address] [address] Tj Wild CO2 [Moles/Vol] 26.3 mmol/L Normal 22.0-30.0 [facility] Comment on above: Performed By: #### H STROPN, CMP #### [facility] [address] [address] [address] Tj Wild Creatinine [Mass/Vol] 0.89 mg/dL Normal 0.52-1.04 [facility] Comment on above: Performed By: #### H STROPN, CMP #### [facility] [address] [address] [address] Tj Wild EGFR-AF GREENLANDIC >60 Normal >=60 [facility] Comment on above: Performed By: #### H STROPN, CMP #### [facility] [address] [address] [address] Tj Wild EGFR-NON AF GREENLANDIC >60 Normal >=60 [facility] Comment on above: Performed By: #### H STROPN, CMP #### [facility] [address] [address] [address] Tj Widl Globulin (S) [Mass/Vol] 3.3 g/dL Normal [facility] Comment on above: Performed By: #### H STROPN, CMP #### [facility] [address] [address] [address] Tj Wild Glucose [Mass/Vol] 116 mg/dL Critically high 74-106 [facility] Comment on above: Performed By: #### H STROPN, CMP #### [facility] [address] [address] [address] Tj Wild Potassium [Moles/Vol] 3.7 mmol/L Normal 3.4-5.0 [facility] Comment on above: Performed By: #### H STROPN, CMP #### [facility] [address] [place] [address] Dr. Tj Wild Protein [Mass/Vol] 6.8 g/dL Normal 6.1-8.2 [facility] Comment on above: Performed By: #### H STROPN, CMP #### [facility] [address] [address] [address] Tj Wild Sodium [Moles/Vol] 138 mmol/L Normal 137-145 [facility] Comment on above: Performed By: #### H STROPN, CMP #### [facility] [address] [address] [address] Tj Wild Urea nitrogen [Mass/Vol] 20.0 mg/dL Critically high 7.0-17.0 [facility] Comment on above: Performed By: #### H STROPN, CMP #### [facility] [address] [address] [address] Tj Wild Urea nitrogen/Creatinine [Mass ratio] 22.5 mg/mg Normal [facility] Comment on above: Performed By: #### H STROPN, CMP #### [facility] [address] [place] [address] Dr. Tj Wild TROPONIN, HIGH SENSITIVITYon 07-05-2021 HSTROP 10.4 pg/mL Normal 4.0-35.5 [facility] Comment on above: Result Comment: CUT- OFF POINTS HAVE BEEN ESTABLISHED BASED ON THE FOURTH UNIVERSAL DEFINITIONS OF MYOCARDIAL INFARCTION. THE UPPER REFERENCE LIMIT (URL) OF TROPONIN, DEFINED THE 99TH PERCENTILE OF cTnI DISTRIBUTION IN A REFERENCE POPULATION, HAS BEEN CONFIRMED THE DECISION THRESHOLD FOR [place] DIAGNOSIS. Performed By: #### H VALENTINE, CMP #### [facility] [address] [address] [address] Tj Wild XR CHEST 1 Von [...] by: Cassius MCKEON Date: 2021-07-05 20:35 Normal [facility] Vital Signs Date Time Vital Sign Value Performing Clinician Facility 08-21-2023 11:12-0500 Body mass index (BMI) [Ratio] 32.95 kg/m2 Bhumika COKER Work Phone: [facility] 08-21-2023 11:12-0500 Body weight 84.37 kg Bhumika COKER Work Phone: [facility] 08-21-2023 11:12-0500 Diastolic blood pressure 60 mm[Hg] Bhumika COKER Work Phone: [facility] 08-21-2023 11:12-0500 Systolic blood pressure 110 mm[Hg] Bhumika COKER Work Phone: [facility] 02-26-2023 15:56-0400 Body temperature 98.78 [degF] Charlie Rubalcava [facility] 02-26-2023 15:56-0400 Diastolic blood pressure 76 mm[Hg] Charlie Rubalcava [facility] 02-26-2023 15:56-0400 Heart rate 107 /min Charlie Rubalcava [facility] 02-26-2023 15:56-0400 Respiratory rate 16 /min Charlie Rubalcava [facility] 02-26-2023 15:56-0400 SaO2% (BldA) [Mass fraction] 98 % Charlie Rubalcava [facility] 02-26-2023 15:56-0400 Systolic blood pressure 115 mm[Hg] Charlie Rubalcava [facility] 12-31-2022 10:16-0400 Body temperature 98.24 [degF] Javier Woods [facility] 12-31-2022 10:16-0400 Diastolic blood pressure 82 mm[Hg] Javier Woods [facility] 12-31-2022 10:16-0400 Heart rate 90 /min Javier Woods [facility] 12-31-2022 10:16-0400 Respiratory rate 18 /min Javier Woods [facility] 12-31-2022 10:16-0400 SaO2% (BldA) [Mass fraction] 99 % Javier Woods [facility] 12-31-2022 10:16-0400 Systolic blood pressure 129 mm[Hg] Javier Reynae [facility] 12-30-2022 13:13-0400 Body temperature 98.06 [degF] Javier Reynae [facility] 12-30-2022 13:13-0400 Diastolic blood pressure 75 mm[Hg] Javier Reynae [facility] 12-30-2022 13:13-0400 Heart rate 88 /min Javier Woods [facility] 12-30-2022 13:13-0400 Respiratory rate 16 /min Javier Woods [facility] 12-30-2022 13:13-0400 SaO2% (BldA) [Mass fraction] 96 % Javier Woods [facility] 12-30-2022 13:13-0400 Systolic blood pressure 125 mm[Hg] Javier Woods [facility] 12-21-2022 13:35-0400 Body temperature 98.24 [degF] Charlie Rubalcava [facility] 12-21-2022 13:35-0400 Diastolic blood pressure 77 mm[Hg] Charlie Khadar [facility] 12-21-2022 13:35-0400 Heart rate 93 /min Charlie Khadar [facility] 12-21-2022 13:35-0400 Respiratory rate 18 /min Charlie Khadar [facility] 12-21-2022 13:35-0400 SaO2% (BldA) [Mass fraction] 99 % Charlie Khadar [facility] 12-21-2022 13:35-0400 Systolic blood pressure 128 mm[Hg] Charlie Khadar [facility] 09-05-2022 22:53-0500 Diastolic blood pressure 63 mm[Hg] Kaylinn Dokken [facility] 09-05-2022 22:53-0500 Heart rate 93 /min Kaylinn Dokken [facility] 09-05-2022 22:53-0500 Mean blood pressure 80 mm[Hg] Kaylinn Dokken [facility] 09-05-2022 22:53-0500 Respiratory rate 20 /min Kaylinn Dokken [facility] 09-05-2022 22:53-0500 SaO2% (BldA) [Mass fraction] 95 % Kaylinn Dokken [facility] 09-05-2022 22:53-0500 Systolic blood pressure 114 mm[Hg] Kaylinn Dokken [facility] 09-05-2022 21:45-0500 Diastolic blood pressure 60 mm[Hg] Kaylinn Dokken [facility] 09-05-2022 21:45-0500 Heart rate 97 /min Kaylinn Dokken [facility] 09-05-2022 21:45-0500 Mean blood pressure 80 mm[Hg] Kaylinn Dokken [facility] 09-05-2022 21:45-0500 Respiratory rate 16 /min Kaylinn Dokken [facility] 09-05-2022 21:45-0500 SaO2% (BldA) [Mass fraction] 93 % Kaylinn Dokken [facility] 09-05-2022 21:45-0500 Systolic blood pressure 119 mm[Hg] Kaylinn Dokken [facility] 09-05-2022 21:03-0500 Body temperature 97.52 [degF] Kaylinn Dokken [facility] 09-05-2022 21:03-0500 Diastolic blood pressure 56 mm[Hg] Kaylinn Dokken [facility] 09-05-2022 21:03-0500 Heart rate 115 /min Kaylinn Dokken [facility] 09-05-2022 21:03-0500 Respiratory rate 32 /min Quita Clark [facility] 09-05-2022 21:03-0500 SaO2% (BldA) [Mass fraction] 95 % Quita Clark [facility] 09-05-2022 21:03-0500 Systolic blood pressure 123 mm[Hg] Quita Clark [facility] 04-14-2022 19:00-0400 Diastolic blood pressure 70 mm[Hg] Saúl Hubert [facility] 04-14-2022 19:00-0400 Heart rate 91 /min Saúl Hubert [facility] 04-14-2022 19:00-0400 Mean blood pressure 83 mm[Hg] Saúl Hubert [facility] 04-14-2022 19:00-0400 Respiratory rate 14 /min Saúl Hubert [facility] 04-14-2022 19:00-0400 SaO2% (BldA) [Mass fraction] 96 % Saúl Hubert [facility] 04-14-2022 19:00-0400 Systolic blood pressure 110 mm[Hg] Saúl Hubert [facility] 04-14-2022 18:22-0400 Diastolic blood pressure 64 mm[Hg] Saúl Hubert [facility] 04-14-2022 18:22-0400 Heart rate 87 /min Saúl Hubert [facility] 04-14-2022 18:22-0400 Mean blood pressure 76 mm[Hg] Saúl Hubert [facility] 04-14-2022 18:22-0400 Respiratory rate 20 /min Saúl Hubert [facility] 04-14-2022 18:22-0400 SaO2% (BldA) [Mass fraction] 95 % Saúl Hubert [facility] 04-14-2022 18:22-0400 Systolic blood pressure 100 mm[Hg] Saúl Hubert [facility] 04-14-2022 17:00-0400 Diastolic blood pressure 61 mm[Hg] Saúl Hubert [facility] 04-14-2022 17:00-0400 Respiratory rate 19 /min Saúl Hubert [facility] 04-14-2022 17:00-0400 SaO2% (BldA) [Mass fraction] 93 % Saúl Hubert [facility] 04-14-2022 17:00-0400 Systolic blood pressure 105 mm[Hg] Saúl Hubert [facility] 04-14-2022 15:35-0400 Heart rate 92 /min Saúl Hubert [facility] 04-14-2022 15:35-0400 Respiratory rate 16 /min Saúl Hubert [facility] 04-14-2022 14:48-0400 Body temperature 98.06 [degF] Saúl Hubert [facility] 04-14-2022 14:48-0400 Heart rate 113 /min Saúl Hubert [facility] 04-14-2022 14:48-0400 Respiratory rate 18 /min Saúl Hubert [facility] 11-19-2021 19:00-0400 Hourly Rounding Javier Woods [facility] 11-19-2021 19:00-0400 Promise to Return Javier Peggy [facility] 11-19-2021 18:45-0400 Diastolic blood pressure 64 mm[Hg] Javier Peggy [facility] 11-19-2021 18:45-0400 Heart rate 85 /min Javier Peggy [facility] 11-19-2021 18:45-0400 Mean blood pressure 76 mm[Hg] Javier Peggy [facility] 11-19-2021 18:45-0400 Respiratory rate 16 /min Javier Peggy [facility] 11-19-2021 18:45-0400 SaO2% (BldA) [Mass fraction] 98 % Javier Peggy [facility] 11-19-2021 18:45-0400 Systolic blood pressure 100 mm[Hg] Javier Peggy [facility] 11-19-2021 18:15-0400 Diastolic blood pressure 70 mm[Hg] Javier Peggy [facility] 11-19-2021 18:15-0400 Heart rate 84 /min Javier Peggy [facility] 11-19-2021 18:15-0400 Mean blood pressure 85 mm[Hg] Javier Peggy [facility] 11-19-2021 18:15-0400 Respiratory rate 16 /min Javier Peggy [facility] 11-19-2021 18:15-0400 SaO2% (BldA) [Mass fraction] 96 % Javier Peggy [facility] 11-19-2021 18:15-0400 Systolic blood pressure 114 mm[Hg] Javier Peggy [facility] 11-19-2021 17:45-0400 Diastolic blood pressure 71 mm[Hg] Javier Woods [facility] 11-19-2021 17:45-0400 Heart rate 86 /min Javier Woods [facility] 11-19-2021 17:45-0400 Mean blood pressure 81 mm[Hg] Javier Woods [facility] 11-19-2021 17:45-0400 Respiratory rate 16 /min Javier Woods [facility] 11-19-2021 17:45-0400 SaO2% (BldA) [Mass fraction] 97 % Javier Woods [facility] 11-19-2021 17:45-0400 Systolic blood pressure 102 mm[Hg] Javier Woods [facility] 11-19-2021 15:45-0400 Blood Pressure Location Javier Woods [facility] 11-19-2021 15:22-0400 Body temperature 98.24 [degF] Javier Woods [facility] 11-19-2021 15:22-0400 Heart rate 111 /min Javier Woods [facility] Encounters Encounter Date Encounter Type Care Provider Facility Start: 10-03-2023 End: 10-03-2023 ambulatory BRODERICK LIYA Not Available Start: 09-19-2023 End: 09-19-2023 ambulatory BHUMIKA MO [...] 02-26-2023 Emergency department patient visit Charlie Rubalcava [place] [place]: 02-26-2023 End: 02-26-2023 Emergency department patient visit Charlie Rubalcava [facility] Start: 01-30-2023 End: 01-31-2023 ambulatory [facility] Start: 12-31-2022 End: 12-31-2022 Emergency department patient visit Javier Woods [place] [place] Start: 12-31-2022 End: 12-31-2022 Emergency department patient visit Javier Woods [facility] Start: 12-30-2022 End: 12-30-2022 Emergency department patient visit Javier Woods [place]: 12-30-2022 End: 12-30-2022 Emergency department patient visit Javier Woods [facility] Start: 12-26-2022 End: 12-27-2022 ambulatory John MALONEY Facility:[facility] Start: 12-21-2022 End: 12-21-2022 Emergency department patient visit Charlie Rubalcava [place] [place]: 12-21-2022 End: 12-21-2022 Emergency department patient visit Charlie Rubalcava [facility] Start: 12-15-2022 End: 12-16-2022 ambulatory John MALONEY Facility:[facility] Start: 09-05-2022 End: 09-06-2022 Emergency department patient visit Quita Clark [place] Start: 09-05-2022 End: 09-05-2022 Emergency department patient visit Quita Clark [facility] Start: 09-04-2022 End: 09-04-2022 Emergency department patient visit Solo Minayaamparo [place] Start: 07-27-2022 End: 07-27-2022 Emergency department patient visit Saúl Gaspar [place] Start: 04-14-2022 End: 04-14-2022 Emergency department patient visit Saúl Gaspar [place] Start: 04-14-2022 End: 04-14-2022 Emergency department patient visit Saúl Gaspar [facility] Start: 01-13-2022 End: 01-13-[address] HOLLIE RUBI Facility: Start: 11-19-2021 End: 11-19-2021 Emergency department patient visit Javier Woods [facility] Start: 07-05-2021 End: 07-06-2021 ambulatory PHILLIP [...] AM EST Routine [facility] [address] [place] [id number] Broderick Nickerson DO [address] [place] [address] [facility] Start: 08-21-2023 End: 08-21-2024 CBC panel - Blood by Automated count CBC Lab Routine Diabetes mellitus screening Expected: 08/21/2023 (Approximate), Expires: 08/21/2024 [facility] Work Phone: Comment on above: Expected: 08/21/2023 (Approximate), Expires: 08/21/2024 Start: 08-21-2023 End: 08-21-2024 Measurement of glucose 1 hour after glucose challenge for glucose tolerance test Glucose tolerance, 1 hour Lab Routine Diabetes mellitus screening Expected: 08/21/2023 (Approximate), Expires: 08/21/2024 [facility] Comment on above: Expected: 08/21/2023 (Approximate), Expires: 08/21/2024 Payers Date Payer Category Payer Medicaid [employer] [facility] [id number] 2022-Present [address] [address] [place] [address] [id number] 1990 Unknown [id number] 2.16.840.1.009147.3.579.2.593 1990 Unknown [id number] 2.16.840.1.797830.3.579.2.593 1990 Unknown [id number] 2.16.840.1.533587.3.579.2.727 1990 Unknown [id number] 2.16.840.1.334311.3.579.2.727 1990 Unknown [id number] 2.16.840.1.977162.3.579.2.727 1990 Unknown [id number] 2.16.840.1.290753.3.579.2.727 1990 Unknown [id number] 2.16.840.1.592675.3.579.2.727 1990 Unknown [id number] 2.16.840.1.622367.3.579.2.727 1990 Unknown [id number] 2.16.840.1.803281.3.579.2.727 1990 Unknown [id number] 2.16.840.1.011999.3.579.2.727 1990 Unknown [id number] 2.16.840.1.444932.3.579.2.727 1990 Unknown [id number] 2.16.840.1.625297.3.579.2.727 1990 Unknown [id number] 2.16.840.1.662595.3.579.2.727 1990 Unknown [id number] 2.16.840.1.051561.3.579.2.9 1990 Unknown [id number] 2.16.840.1.398076.3.579.2.9 1990 Unknown [id number] 2.16.840.1.782438.3.579.2.1259 1990 Unknown [id number] 2.16.840.1.295337.3.579.2.1259 1990 Unknown [id number] 2.16.840.1.144021.3.579.2.1259 1990 Unknown [id number] 2.16.840.1.098902.3.579.2.1259 1959 Unknown [id number] Self-pay Social History Date Type Detail Facility Tobacco Cigarettes [facility] Comment on above: 1 ppd Sex Assigned At Female [facility] Start: 04-14-2022 Tobacco smoking status Heavy tobacco smoker (finding) [facility] Tobacco smoking status NHIS Tobacco smoking consumption unknown [facility] Start: 02-14-2023 [facility] Start: 1990 Sex Assigned At Not on file [facility] Functional Status Date Assessment Result Facility 02-26-2023 Functional Status N/A [facility] 12-31-2022 Functional Status N/A [facility] 12-30-2022 Functional Status N/A [facility] 12-21-2022 Functional Status N/A [facility] 09-05-2022 Functional Status N/A [facility] 04-14-2022 Functional Status N/A [facility] Clinical Notes 07-06-2021 to 08-21-2023 JOHN [...] JOHN PAUL Ardon documented in this encounter [facility] 02-26-2023 Hospital Discharg e instructions Patient Education [...] condition. Follow these instructions at home: Take vsar-vha-gjpbnyn and prescription medicines only as told by [...] and water are not available, use hand route supervisor. Avoid contact with people who have cold [...] it is easier to cough up. Take iqhv-utm-mbchugs and prescription medicines only as told by [...] provider. Document Revised: 10/27/2021 Document Reviewed: 10/27/2021 [email or web address] Patient Education 2022 [employer]. Follow Up Care 02/26/2023 15:53:57 With:Mark Pitts Address: [address] [place] [phone]- Business (1) When:03/01/2023 17:54:59 Comments:Call the office [...] you develop any new or worsening symptoms. [facility] 02-26-2023 Evaluation + Plan note Extrac kathi from: Title:ED Note Author:Namrata CAO, Juan Ortega e:02/26/23 Bronchitis (J40: Bronchitis, not specified as acute or chronic) Upper respiratory infection (J06.9: Acute upper respiratory infection, unspecified) Orders: albuterol, 2 puff(s), Inhalation, q4hr for 7 day(s), 8.5 gm, Refill(s) 0, [facility], 160, cm, 02/26/23 15:59:00 EDT, Height/Length Dosing, 85.6, kg, 02/26/23 15:59:00 EDT, Weight Dosing brompheniramine/dextromethorphan/PSE, 5 mL, Oral, QID for cold symptoms, 200 mL, Refill(s) 0, [facility], 160, cm, 02/26/23 15:59:00 EDT, Height/Length Dosing, 85.6, kg, 02/26/23 15:59:00 EDT, Weight Dosing guaifenesin, 600 mg = 1 tab(s), Oral, q12hr, X 7 day(s), # 14 tab(s), Refills(s) 0, Pharmacy: [facility], 160, cm, 02/26/23 15:59:00 EDT, Height/Length Dosing, 85.6, kg, 02/26/23 15:59:00 EDT, Weight Dosing predniSONE, 60 mg = 3 tab(s), Oral, Daily, X 5 day(s), # 15 tab(s), Refills(s) 0, Pharmacy: [facility], 160, cm, 02/26/23 15:59:00 EDT, Height/Length Dosing, 85.6, kg, 02/26/23 15:59:00 EDT, Weight Dosing Rapid COVID Antigen [place] [facility]06-[facility]-2023 Hospital Discharge instructions Patient Education 12/31/2022 [...] if you start to feel better. Take ciau-wul-jfelfox and prescription medicines only as told by [...] provider. Document Revised: 09/08/2021 Document Reviewed: 09/08/2021 [email or web address] Patient Education 2022 [employer]. Follow Up Care 12/31/2022 10:02:50 With:Mark Pitts Address: [address] [place] [phone]- Business (1) When:01/03/2023 10:36:17 Comments:Follow-up with your primary care provider in 3 to 5 days. If symptoms worsen, do not improve, or new symptoms arise please report back to emergency department for further evaluation. [facility]06-23-2023 Hospital Discharge instructions Follow Up Care 12/30/2022 13:07:17 With:Mark Pitts Address: [address] [place] [phone]- Business (1) When:Within 3 Day(s) [facility]06-23-2023 Evaluation + Plan noteExtracted from: Title:ED Note Author:Javier Woods DO Date:12/09 09/29 Otitis externa, left (H60.92 : Unspecified otitis externa, left ear) Orders: ciprofloxacin-dexamethasone otic, 5 drop(s), Otic, BID for 7 day(s), 7.5 mL, Refill(s) 0, [facility], [facility], cm, 12/30/22 13:14:00 EDT, Height/Length Dosing, 85.6, kg, 12/30/22 13:14:00 EDT, Weight Dosing [facility]06-14-2023 Hospital Discharge instructions Patient Education 12/21/2022 [...] or swathi your foot. General instructions Take scio-rpk-nnepcaq and prescription medicines only as told by [...] provider. Document Revised: 10/16/2020 Document Reviewed: 10/16/2020 [email or web address] Patient Education 2022 [employer]. 12/21/2022 14:54:11 Elastic Bandage and RICE Therapy [...] limityour activities and whether you should start zyqat-ad-saypzo exercises for your injury. Ice Ice your [...] provider. Document Revised: 08/21/2020 Document Reviewed: 03/16/2018 [email or web address] Patient Education 2020 [employer]. 12/21/2022 14:54:11 Ankle Sprain, Phase II Rehab [...] by your health care provider. Stretching and xnlbg-uy-upugge exercises These exercises warm up your muscles [...] provider. Document Revised: 08/19/2021 Document Reviewed: 08/19/2021 [email or web address] Patient Education 2022 [email or web address] 12/21/2022 14:54:11 Ankle Sprain, Phase I [...] told by your healthcare provider. Stretching and cyevx-ns-ujusse exercises These exercises warm up your muscles [...] provider. Document Revised: 08/19/2021 Document Reviewed: 08/19/2021 [employer] Patient Education 2022 [email or web address] 12/21/2022 14:54:11 Ankle Sprain, Wdee-ao-Kfzu Ankle Sprain An ankle sprain is a [...] blue. Managing pain, stiffness, and swelling Take vkds-bfb-lurqirq and prescription medicines only as told by [...] provider. Document Revised: 08/19/2021 Document Reviewed: 08/19/2021 [email or web address] Patient Education 2022 [employer]. Follow Up Care 12/21/2022 13:24:37 With:Mark Pitts Address: [address] [place] [phone]- Business (1) When:12/24/2022 14:27:12 Comments:Follow-up with your primary care provider in 3 to 5 days. If symptoms worsen, do not improve, or new symptoms arise please report back to emergency department for further evaluation. [facility]06-14-2023 Evaluation + Plan noteExtracted from: Title:ED Note Author:Loyd Lange PA-C te:12/21/22 Left ankle sprain (S93.402A: Sprain of unspecified ligament of left ankle, initial encounter) Sprain of left foot (S93.602A: Unspecified sprain of left foot, initial encounter) Orders: Crutches XR Ankle 3+ Views Left XR Foot 3+ Views Left [facility]02-28-2023 Hospital Discharge instructions Patient Education 09/05/2022 22:58:39 Hives, Opwv-pn-Mdbz Hives Hives are itchy, red, swollen areas [...] woman. Being allergic to foods such as: ?[place] fruits. ?Milk. ?Eggs. ?Peanuts. ?Tree nuts. ?Shellfish. [...] instructions at home: Medicines Take or apply geuj-scw-cigvayl and prescription medicines only as told by [...] what causes your hives. Take and apply kvlu-cjl-cpytcgq and prescription medicines only as told by your doctor. Keep all follow-up visits as told by your doctor. This is important. This information is not intended to replace advice given to you by your health care provider. Make sure you discuss any questions you have with your health care provider. Document Released: 04/04/2009 Document Revised: 01/09/2019 Document Reviewed: 01/09/2019 [email or web address] Patient Education 2020 [employer]. Follow Up Care 09/05/2022 21:02:01 With:KATJA MCGINNIS Address: [address] [place] [address] [place] [address]- Business (1) When:09/08/2022 21:23:21 Comments:Follow-up for further evaluation of your urticarial rashes and reactions. With:Mark Pitts Address: [address] [place] [address]- Business (1) When:Within 3 Day(s) [facility]02-27-2023 Evaluation + Plan noteExtracted from: Title:ED Note Author:Nazario CAO, Loyd Matute te:09/05/22 Allergic reaction (T78.40XA: Allergy, unspecified, initial encounter) Urticaria (L50.9: Urticaria, unspecified) Orders: diphenhydrAMINE, 25 mg = 0.5 mL, Injection, IV Push, Once, Stop date 09/05/22 21:11:00 EST, STAT, Start date 09/05/22 21:11:00 EST, 09/05/22 21:11:00 EST epinephrine, 0.3 mg, IntraMuscular, Once, # 1 kit(s), Refills(s) 1, Pharmacy: [facility], 160, cm, 09/05/22 21:08:00 EST, [...] day(s), # 21 tab(s), Refills(s) 0, Pharmacy: [facility], 160, cm, 09/05/22:08:00 EST, Height/Length Dosing, 85.6, kg, 09/05/22:08:00 EST, Weight Dosing Sodium Chloride 0.9% intravenous solution, 1,000 mL, Soln-IV, IV, Once, Stop date 09/05/22 21:11:00 EST, STAT, Start date 09/05/22 21:11:00 EST, mL/hr, Infuse over 61, minute(s) [facility]10-06-2022 Hospital Discharge instructions Patient Education 04/14/2022 [...] symptoms? Symptoms of anaphylaxis may include: Feeling guillotine trimmer the face (flushed). This may include redness. [...] you have hives or rash: ?Use an qokh-otd-cycqkvy antihistamine as told by your health care provider. ?Apply cold, wet cloths (cold compresses) to your skin or take baths or showers in cool water. Avoid hot water. Take ozkf-mtv-hmmagjf and prescription medicines only as told by your health care provider. Tell all your health care providers that you have an allergy. Keep all follow-up visits as told by your health care provider. This is important. How is this prevented? Avoid allergens that have caused an anaphylactic reaction in the past. When you are at a restaurant, tell your ware server that you have an allergy. If you are not sure whether a menu item contains an ingredient that you are allergic to, ask your ware server. Where to find more information [employer]: aaaai.org [employer] [employer]: healthychildren.org Get help right [...] 06/26/2006 Document Revised: 10/18/2018 Document Reviewed: 10/18/2018 [email or web address] Patient Education 2019 [employer]. Follow Up Care 04/14/2022 14:45:49 With:Mark Pitts Address: [address] [place] [address]- Business (1) When:04/17/2022 18:33:05 [facility]05-13-2022 Hospital Discharge instructions Patient Education 11/19/2021 [...] have symptoms of anaphylaxis, such as: Feeling guillotine trimmer the face (flushed). This may include redness. [...] you are at a restaurant, tell your ware server that you have an allergy. If you are unsure whether a meal has an ingredient that you are allergic to, ask your ware server. Take wuzo-qbv-goazrnj and prescription medicines only as told by [...] 06/23/2001 Document Revised: 06/26/2018 Document Reviewed: 06/26/2018 [employer] Patient Education 2020 [employer] Follow Up Care 11/19/2021 15:20:25 With:[facility] Address: [address] [place] [address]- Business (1) When:11/22/2021 18:25:35 [facility]12-28-2021 NotePROCEDURE: CTA CHEST WO W CON [...] Electronically authenticated by: TULIO VILLASEÑOR Date: 2021-07-05 23:35[facility] No data available for this section [facility] Diagnosis Third trimester state, incidental Diabetes mellitus screening Screening for diabetes mellitus BV (bacterial vaginosis) Unspecified vaginitis and vulvovaginitis Nausea Nausea alone documented in this encounter [facility] No data available for this section [facility] Summary Purpose Family History No Family History Records FoundNo Family History Records FoundNo Family History Records Found Advance Directives No Advanced Directives Records FoundNo Advanced Directives Records FoundNo Advanced Directives Records Found Additional Source Comments INFORMATION SOURCE (unrecogn ized section and content) DATE CREATED AUTHOR 01/17/2022 [facility] DATE CREATED AUTHOR AUTHOR'S ORGANIZ ATION 02/26/2023 Helder Snyder [facility] DATE CREATED AUTHOR AUTHOR'S ORGANIZ ATION 10/04/2023 [facility] [employer] Patient Care team informatio n (unrecognized section and content) Air Sealing Technician Relationship Specialty Start Date End Date Mark Pitts MD [address] [place] [address] PCP - General Family Medicine 04/14/23 Air Sealing Technician Relationship Specialty Start Date End Date Mark Pitst MD [address] [place] [address] PCP - General Family Medicine 04/14/23 Reason [...] BE BASED ON THE PRIMARY CLINICAL RECORDS. [facility] [employer] provides no warranty or guarantee of the accuracy or completeness of information in this document.
== END 2023-10-10 20:35 | disposition home or self-care (01) ==
LOC: LAB 20:34
PROVIDERS: Visit Provider Obstetrics & Gynecology
DX: Z34.93 Encounter for supervision of normal pregnancy, unspecified, third trimester (principal)
CPT/HCPCS: 87081

== ENCOUNTER 2023-10-31 20:33 | Inpatient (IN) | payer OTHER, SELFPAY ==
--- OUTSIDE RECORDS SUMMARY | 2023-10-31 20:44 | XMS_ITS | CCD ---
Author Organization [facility] Care Team Providers Care Turn Out Name Role Phone Mark Pitts Primary Care [...] MONICA, Willa Jean Attending Unavailable MONICA, Willa Ted Admitting Unavailable Quita Clark Attending Unavailable Lamin, Solo Sheldon Attending Unavailable Mark Pitts MD Primary Care Provider BRODERICK NICKERSON Attending Unavailable CHEPE, BHUMIKA Attending Unavailable BONITA, BRODERICK Attending Unavailable CHEPE, BHUMIKA Attending Unavailable BONITA, BRODERICK Attending Unavailable BONITA, BRODERICK Attending Unavailable CHEPE, BHUMIKA Attending Unavailable BONITA, BRODERICK Attending Unavailable CHEPE, BHUMIKA Attending Unavailable Allergies Allergy Classification Reported Allergen(s) Allergy Type Date of Onset Reaction(s) Facility (11 sources) Codeine; Translations: [codeine] Drug Allergy 3 [facility] (8 sources) Penicillin; Translations: [penicillin] Drug Allergy [facility] (1 source) Clindamycin Drug Allergy [facility] (1 source) Codeine Drug Allergy 4 [facility] (1 source) Penicillins Drug allergy (disorder) 4 [facility] (10 sources) Ibuprofen; Translations: [ibuprofen] Drug Allergy 3 Anaphylaxis (disorder), [facility] (6 sources) Amoxicillin; Translations: [amoxicillin] Drug Allergy 3 [facility] (3 sources) Penicillins Propensity to adverse reactions 3 Hives [facility] Medications Current Medications Medication Drug Class(es) Dates Sig (Normalized) Sig (Original) Albuterol (Eqv-ProAir HFA) 90 mcg/inh inhalation aerosol (1 source) Start: 02-26-2023 End: 03-05-2023 take 2 puff(s) by inhalation every four hours Albuterol (Eqv-ProAir HFA) 90 mcg/inh inhalation aerosol 2 puff(s), Inhalation, q4hr for 7 day(s), 8.5 gm, Refill(s) 0, [facility], 160, cm, 02/26/23 15:59:00 EDT, Height/Length Dosing, 85.6, kg, 02/26/23 15:59:00 EDT, Weight Dosing Start Date: 02/26/23 Stop Date: 03/05/23 Status: Ordered brompheniramine maleate 0.4 mg/ml / dextromethorphan hydrobromide 2 mg/ml / pseudoephedrine hydrochloride 6 mg/ml oral solution (9 sources) alpha-Adrenergic Agonist, Uncompetitive T-jioxic-I-aspartat e Receptor Antagonist, Sigma-1 Agonist Start: 02-27-2023 [...] for cold symptoms, 200 mL, Refill(s) 0, [facility], 160, cm, 02/26/23 15:59:00 EDT, Height/Length Dosing, 85.6, kg, 02/26/23 15:59:00 EDT, Weight Dosing Start Date: 02/26/23 Status: Ordered ciprofloxacin 3 mg/ml / dexamethasone 1 mg/ml otic suspension (2 sources) Corticosteroid, Quinolone Antimicrobial Start: 12-30-2022 End: 01-06-2023 Ciprodex 0.3%-0.1% Susp-Otic 5 drop(s), Otic, BID for 7 day(s), 7.5 mL, Refill(s) 0, [facility], 160, cm, 12/30/22 13:14:00 EDT, Height/Length Dosing, 85.6, kg, 12/30/22 13:14:00 EDT, Weight Dosing Start Date: 12/30/22 Stop Date: 01/06/23 Status: Ordered [id number] 0.3 ml EPINEPHrine 1 mg/ml auto-injector (9 [...] inventory, # 1 kit(s), Refills(s) 0, Pharmacy: [facility] 1985, 160, cm, 04/14/22 14:56:00 [...] day(s), # 7 tab(s), Refills(s) 0, Pharmacy: [facility], 160, cm, 04/14/22 14:56:00 EDT, Height/Length Dosing, 83, kg, 04/14/22 14:56:00 EDT, Weight Dosing Start Date: 04/14/22 Stop Date: 04/21/22 Status: Ordered Start: 11-19-2021 End: 11-26-2021 take 1 tablet by mouth once daily at bedtime Pepcid 40 mg Tab 40 mg = 1 tab(s), Oral, Once a day (at bedtime), X 7 day(s), # 7 tab(s), Refills(s) 0, Pharmacy: [facility], 160, cm, 11/19/21 15:30:00 [...] l route once daily Flonase 0.05 mg/inh Gerton 2 spray(s), Nasal, Daily, 16 gram, Refill(s) 0, each nostril, [facility], 160, cm, 12/31/22 10:20:00 [...] day(s), # 14 tab(s), Refills(s) 0, Pharmacy: [facility], 160, cm, 02/26/23 15:59:00 [...] day(s), # 15 tab(s), Refills(s) 0, Pharmacy: [facility], 160, cm, 02/26/23 15:59:00 EDT, Height/Length Dosing, 85.6, kg, 02/26/23 15:59:00 EDT, Weight Dosing Start Date: 02/26/23 Stop Date: 03/03/23 Status: Ordered Start: 09-05-2022 End: 09-12-2022 take 3 tablets by mouth once daily predniSONE 20 mg Tab 60 mg = 3 tab(s), Oral, Daily, X 7 day(s), # 21 tab(s), Refills(s) 0, Pharmacy: [facility], 160, cm, 09/05/22 21:08:00 EST, Height/Length Dosing, 85.6, kg, 09/05/22 21:08:00 EST, Weight Dosing Start Date: 09/05/22 Stop Date: 09/12/22 Status: Ordered Start: 04-14-2022 End: 04-21-2022 take 3 tablets by mouth once daily predniSONE 20 mg Tab 60 mg = 3 tab(s), Oral, Daily, X 7 day(s), # 21 tab(s), Refills(s) 0, Pharmacy: [facility], 160, cm, 04/14/22 14:56:00 EDT, Height/Length Dosing, 83, kg, 04/14/22 14:56:00 EDT, Weight Dosing Start Date: 04/14/22 Stop Date: 04/21/22 Status: Ordered Start: 11-19-2021 End: 11-26-2021 take 3 tablets by mouth once daily predniSONE 20 mg Tab 60 mg = 3 tab(s), Oral, Daily, X 7 day(s), # 21 tab(s), Refills(s) 0, Pharmacy: [facility], 160, cm, 11/19/21 15:30:00 [...] q4hr, # 14 tab(s), Refills(s) 0, Pharmacy: [facility] 1985 Start Date: 03/21/19 Status: Ordered traMADol hydrochloride 50 mg oral tablet (1 source) Opioid Agonist Start: 12-31-2022 End: 01-03-2023 take 1 tablet by mouth every six hours as needed for pain traMADOL 50 mg Tab 50 mg = 1 tab(s), Oral, q6hr, PRN for pain, X 3 day(s), # 12 tab(s), Refills(s) 0, Pharmacy: [facility], 160, cm, 12/31/22 10:20:00 EDT, Height/Length Dosing, 85.6, kg, 12/31/22 10:20:00 EDT, Weight Dosing Start Date: 12/31/22 Stop Date: 01/03/23 Status: Ordered Zofran ODT 4 mg Tab-Dis (14 sources) Start: 08-05-2019 take 1 tablet by mouth three times daily Zofran ODT 4 mg Tab-Dis 4 mg = 1 tab(s), Oral, TID, # 15 tab(s), Refills(s) 0, Pharmacy: [facility], 160, cm, 08/05/19 9:28:00 EST, Height/Length Measured, 86.5, kg, 08/05/19 9:28:00 EST, Weight Measured Start Date: 08/05/19 Status: Ordered Start: 03-21-2019 take 1 tablet by savannah th every six hours Zofran ODT 4 mg Tab-Dis 4 mg = 1 tab(s), Oral, q6hr, # 10 tab(s), Refills(s) 0, Pharmacy: [facility] 1985 Start Date: 03/21/19 Status: [...] te Episodic/Chronic Other aftercare (1 source) Other long term care phlebotomist (current) drug therapy; Translations: [OTH PROTEIN SCIENTIST CURRENT DRUG THERAPY] Onset: 07-07-2021 Episodic Other [...] [Ratio] 15.0 % 11.0 - 15.0 % [facility] Hematocrit (Bld) [Volume fraction] 31.4 % Low 36.0 - 48.0 % [facility] Hemoglobin (Bld) [Mass/Vol] 9.7 g/dL Low 12.0 - 16.0 g/dL [facility] IMMATURE GRANULOCYTES ABS AUTO 0.05 High [facility] Immature granulocytes/100 WBC (Bld) 0.4 % 0.0 - 0.5 % [facility] Interpretation and review of laboratory results Abnormal [facility] LYMPHOCYTES ABSOLUTE AUTO 2.6 [facility] Lymphocytes/100 WBC (Bld) 19.4 % Low 20.5 - 60.0 % [facility] MCH (RBC) [Entitic mass] 25.3 pg Low 26.7 - 34.0 pg [facility] MCHC (RBC) [Mass/Vol] 30.9 g/dL 29.9 - 35.2 g/dL [facility] MCV (RBC) [Entitic vol] 82.0 fL 81.0 - 99.0 fL [facility] MONOCYTES ABSOLUTE AUTO 0.3 [facility] Monocytes/100 WBC (Bld) 2.6 % 1.7 - 12.0 % [facility] NEUTROPHILS ABSOLUTE AUTO 10.2 High [facility] Neutrophils/100 WBC (Bld) 76.7 % High 43.0 - 75.0 % [facility] Platelet mean volume (Bld) [Entitic vol] 10.6 fL 9.5 - 13.5 fL [facility] TBH EO # 0.1 [facility] TB PLT 176 [facility] RBC 3.83 Low [facility] WBC 13.3 High [facility] Urinalysis macro (dipstick) panel (U)on 08-21-2023 Bilirubin, UA Negative Negative - 4(70) +++ mg/dL [facility] Blood, UA Negative Negative - 50 Juan Alberto/mcL [facility] Clarity, UA Clear [facility] Color, UA Yellow [facility] Glucose, UA Negative Negative - 2000(110) ++++ mg/dL [facility] Interpretation and review of laboratory results Normal [facility] Ketones, UA Negative Negative - 160(16) ++++ mg/dL [facility] Leukocytes, UA Negative Negative - 500+++ Geovani/mcL [facility] Nitrite, UA Negative Negative - Positive [facility] pH, UA 7.0 5 - 9 [facility] Protein, UA Negative Negative - 1999(20) ++++ mg/dL [facility] Spec Grav, UA 1.015 1 - 1.03 [facility] Urobilinogen, UA 0.2 0.2 - 12 mg/dL [facility] Cytology Cervical or vaginal smear or scraping studyon 06-15-2023 [facility] Consent for Treatmenton 02-08 Consent for Treatment [id number] .00CD:127 [facility] Discharge Instructionson Discharge Instructions [id number]# 1.00CD:127 [facility] ED Clinical Summaryon 2022 ED Clinical Summary [address] [address] ED Clinical Summary Person Information Name: RJ ELENA Calista/[facility] Age: 32 Years : 1990 Sex: Female Language: [place] PCP: Mark Pitts DO Marital Status: Single Phone: [phone] Visit Id: Visit Reason: Shortness of breath; [...] 02/26/2023 18:10:02 02/26/2023 18:10:02 02/26/2023 18:10:02 ADDRESS: [address] [place] [address] [address] [facility] [id number] PHYS DOC NOTES: MEDICAL INFORMATION: Prescriptions Given: New Medications [facility], [address] [place], [place] [id number], [phone] albuterol (Albuterol (Eqv-ProAir HFA) 90 mcg/inh inhalation aerosol) 2 Puffs Inhalation every 4 hours for 7 Days. Refills: 0. guaifenesin (Mucinex 600 mg Tab-ER) 1 Tablets By Mouth every 12 hours for 7 Days. Refills: 0. Medications to Continue Taking That Have Changed [facility], [address] [place], [place] [id number], [phone] START: brompheniramine/dextr omethorphan/PSE (Bromfed DM oral syrup) [...] Refills: 0. fluticasone nasal (Flonase 0.05 mg/inh Gerton) 2 Sprays Nasal Inhalation every day. each [...] Follow up: With: Address: When: Mark Pitts [address] [place], [place] [id number] Business (1) In 3 days 03/01/2023 Comments: [...] symptoms. DIAGNOSIS: Bronchitis; Upper respiratory infection [facility] ED Note-Physicianon 02-27-20 ED Note-Physician Basic [...] and Complexity of Problems Differential Diagnosis: [] [facility] Data External documents reviewed: [] My [...] for 7 day(s), 8.5 gm, Refill(s) 0, [facility], 160, cm, 02/26/23 15:59:00 EDT, Height/Length Dosing, 85.6, kg, 02/26/23 15:59:00 EDT, Weight Dosing brompheniramine/dextr omethorphan/PSE, 5 mL, Oral, QID for cold symptoms, 200 mL, Refill(s) 0, [facility], 160, cm, 02/26/23 15:59:00 EDT, Height/Length Dosing, 85.6, kg, 02/26/23 15:59:00 EDT, Weight Dosing guaifenesin, 600 mg = 1 tab(s), Oral, q12hr, X 7 day(s), # 14 tab(s), Refills(s) 0, [facility], [facility], cm, 02/26/23 15:59:00 EDT, Height/Length Dosing, 85.6, kg, 02/26/23 15:59:00 EDT, Weight Dosing predniSONE, 60 mg = 3 tab(s), Oral, Daily, X 5 day(s), # 15 tab(s), Refills(s) 0, Pharmacy: [facility] (more content not included)... [facility] Comment on above: Result Comment: Elec [...] Follow these instructions at home: ? Take naol-gdp-kptprqw and prescription medicines only as told by [...] and water are not available, use hand medical coding instructor. ? Avoid contact with people who have [...] is easier to cough up. ? Take anzp-epl-kserrmw and prescription medicin (more content not included)... [facility] ED Patient Summaryon 023 ED Patient Summary [place] [id number] Patient Discharge Instructions Person Information Name: RJ ELENA Age: 32 Years Arrival Date: 02/26/2023 15:53:15 Discharge Diagnosis: Bronchitis; Upper respiratory infection Primary Care Physician: Mark Pitts DO Provider Information Primary Provider: Charlie Rubalcava DO [employer] Supervisor:Juan Ott PA-C The exam and treatment you received in the Emergency Department were for an urgent problem and are not intended as complete care. It is important that you follow up with a doctor, nurse practitioner, or physician?s elementary assistant teacher for ongoing care. If your symptoms become worse or you do not improve as expected and you are unable to reach your usual health care provider, you should return to the Emergency Department. We are available 24 hours a day. RJ ELENA has been given the following list of patient education materials, prescriptions and follow-up instructions: Follow-up Instructions: With: Address: When: Mark Pitts [address] [place] [address] [facility] (1) In 3 days 03/01/2023 [...] opioids can be used to help relieve unmeeufr-uv-mdolwm pain and are often prescribed following a [...] and family) (more content not included)... [facility] MICRO OTHER TESTSOrdered By: Juvenal Macario on 02-26-2023 Rapid COV Int NEG Ctl Pass (02/26/23 4:45 PM) Normal [facility] [place] Rapid COV Int POS Ctl Pass (02/26/23 4:45 PM) Normal [facility] [place] SARS-CoV+SARS-CoV-2 (COVID-19) Ag IA.rapid Ql (Resp) Not Detected (02/26/23 4:45 PM) Normal Not Detected [facility] [place] Prescriptions/Work Noteson 0 02-26-2023 Prescriptions/Work Notes [id number]# 1.00CD:127 [facility] Rapid COVID Antigen ([facility])on 02-26-2023 Rapid COV Int NEG Ctl Pass [facility] Comment on above: Performed By: #### 2 [id number] ####[facility] [address] [place] [address] Rapid COV Int POS Ctl Pass [facility] Comment on above: Performed By: #### 2 [id number] ####[facility] [address] [place] [address] SARS-CoV+SARS-CoV-2 (COVID-19) Ag IA.rapid Ql (Resp) Not detected Normal Not Detected [facility] Comment on above: Result Comment: The [employer]? System for Rapid Detection of SARS-CoV-2 is [...] or revoked sooner. Performed By: #### 2 [id number] ####[place] [address] ADMITTED TO INTENSIVE CARE UNIT FOR CONDITION OF INTEREST:FIND:PT: NO [facility] Comment on above: Performed By: #### 2 [id number] ####[place] [address] EMPLOYED IN A HEALTHCARE SETTING:FIND:PT: NO [facility] Comment on above: Performed By: #### 2 [id number] ####[place] [address] FIRST TEST FOR CONDITION OF INTEREST:FIND:PT: Unknown [facility] Comment on above: Performed By: #### 2 [id number] ####[place] [address] HAS SYMPTOMS RELATED TO CONDITION OF INTEREST:FIND:PT: YES [facility] Comment on above: Performed By: #### 2 [id number] ####[place] [address] HOSPITALIZED FOR CONDITION OF INTEREST:FIND:PT: NO [facility] Comment on above: Performed By: #### 2 [id number] ####[place] [address] STATUS:FIND:PT: NO [facility] Comment on above: Performed By: #### 2 [id number] ####[place] [address] RESIDES IN A [facility] CARE SETTING:FIND:PT: NO [facility] Comment on above: Performed By: #### 2 [id number] ####[place] [address] XR Chest 2 Viewson 3 XR Chest [...] mGy = na DAP = na [facility] In office Testingon 01-31-20 23 In office Testing [id number] .00CD:127 [facility] Registrationon 01-30-2023 Registration [id number]# 1.00CD:127 [facility] ED Note-Physicianon 01-10-20 ED Note-Physician Basic [...] and Complexity of Problems Differential Diagnosis: [] [facility] Data External documents reviewed: [] My [...] Daily, 16 gram, Refill(s) 0, each nostril, [facility], 160, cm, 12/31/22 10:20:00 EDT, Height/Length Dosing, 85.6, kg, 12/31/22 10:20:00 EDT, Weight Dosing tramadol, 50 mg = 1 tab(s), Oral, q6hr, PRN for pain, X 3 day(s), # 12 tab(s), Refills(s) 0, Pharmacy: [facility], 160, cm, 12/31/22 10:20:00 EDT, Height/Length Dosing, 85.6, kg, 12/31/22 10:20:00 EDT, Weight Dosing Disposition Plan Patient Discharge Condition Stable Discharge Disposition To home Discharge Prescription List Prescriptions Ciprodex 0.3%-0.1% Susp-Otic, 5 drop(s), Otic, BID Flonase 0.05 mg/inh Gerton, 2 spray(s), Nasal, Daily traMADOL 50 mg Tab, 50 mg= 1 tab(s), Oral, q6hr, PRN Follow-up With When Contact Information Mark Pitts In 3 days 01/03/2023 EDT [address] [place] [address]- Business (1) Additional Instructions: Follow-up with your primary care provider in 3 to 5 days. If symptoms worsen, do not improve, or new symptoms arise please report back to emergency department for further evaluation. Patient Education Otitis Externa Attestation Patient seen and evaluated by the physician elementary assistant teacher. Attending physician was present in the emergency department and supervised care. This visit was performed by both the physician and an APC. I performed all aspects of the MDM as documented. This report was transcribed u (more content not included)... [facility] Comment on above: Result Comment: Elec tronically Signed By: Loyd Lange PA-C\.br\Date and Time Signed: 12/31/22 11:53 EDT\.br\Electronically Co-Signed By: Javier Woods DO\.haris\Date and Time Co-Signed: 01/09/23 07:15 EDT Consent for Treatmenton 12-09 Consent for Treatment [id number] .00CD:127 [facility] Discharge Instructionson Discharge Instructions [id number]# 1.00CD:127 [facility] ED Clinical Summaryon 2022 ED Clinical Summary [address] [address] ED Clinical Summary Person Information Name: RJ ELENA/[facility] Age: 32 Years : 1990 Sex: Female Language: [place] PCP: Mark Pitts DO Marital Status: Single Phone: [phone] Visit Id: Visit Reason: Ear pain; EAR [...] 10:41:35 ADDRESS: [address] [place] [id number] PHYS DOC NOTES: MEDICAL INFORMATION: Prescriptions Given: New Medications [facility], [address] [address] [place], [place] [id number], [phone] fluticasone nasal (Flonase 0.05 mg/inh Gerton) 2 Sprays Nasal Inhalation every day. each [...] Follow up: With: Address: When: Mark Pitts [address] [place] [id number] Business (1) In 3 days 01/03/2023 Comments: Follow-up with your primary care provider in 3 to 5 days. If symptoms worsen, do not improve, or new symptoms arise please report back to emergency department for further evaluation. DIAGNOSIS: Bilateral otitis externa [facility] ED Patient Education Noteon 12-31-2022 ED [...] you start to feel better. ? Take iylu-uob-vcjogzv and prescription medicines only as told by [...] provider. Document Revised: 09/08/2021 Document Reviewed: 09/08/2021 [employer] Patient Education ? 2022 [employer] [facility] ED Patient Summaryon 023 ED Patient Summary [place] [id number] Patient Discharge Instructions Person Information Name: RJ ELENA Age: 32 Years Arrival Date: 12/31/2022 10:01:25 Discharge Diagnosis: Bilateral otitis externa Primary Care Physician: Mark Pitts DO Provider Information Primary Provider: Javier Woods DO [employer] Supervisor:None The exam and treatment you received in the Emergency Department were for an urgent problem and are not intended as complete care. It is important that you follow up with a doctor, nurse practitioner, or physician?s elementary assistant teacher for ongoing care. If your symptoms become [...] Follow-up Instructions: With: Address: When: Mark Pitts [address] [place], [place] [phone] Business (1) In 3 days 01/03/2023 Comments: [...] opioids can be used to help relieve vmabzksp-tx-wccfbd pain and are often prescribed following a [...] overdose. ? (more content not included)... [facility] Consent for Treatmenton 12-09 Consent for Treatment [id number] .00CD:127 [facility] Discharge Instructionson Discharge Instructions [id number]# 1.00CD:127 [facility] ED Clinical Summaryon 2022 ED Clinical Summary [address] [address] ED Clinical Summary Person Information Name: RJ ELENA [place] Age: 32 Years : 1990 Sex: Female Language: [place] PCP: Mark Pitts DO Marital Status: Single Phone: [phone] Visit Id: Visit Reason: Ear pain; DOUBLE [...] 12/30/2022 13:59:40 12/30/2022 13:59:40 12/30/2022 13:59:40 ADDRESS: [address] [place] [address] [address] [facility] [id number] PHYS DOC NOTES: MEDICAL INFORMATION: Prescriptions Given: New Medications [facility], [address] [place], [place] [id number], [phone] ciprofloxacin-dexamet hasone otic (Ciprodex 0.3%-0.1% Susp-Otic) 5 [...] INFORMATION: Instructions: Follow up: With: Address: When: [address] [address] Business (1) In 3 days DIAGNOSIS: Otitis externa, left [facility] ED Note-Physicianon 12-31-19 ED Note-Physician Basic [...] Information Mark Pitts In 3 days [address] [facility] (1) Additional Instructions: Problem List/Past [...] Diagnostic Results No qualifying data available. [facility] Comment on above: Result Comment: Elec tronically Signed By: Javier Woods DO\.br\Date and Time Signed: 12/30/22 13:54 EDT ED Patient Education Noteon 12-30-2022 ED Patient Education Note [facility] ED Patient Summaryon 023 ED Patient Summary [place] [id number] Patient Discharge Instructions Person Information Name: RJ ELENA Age: 32 Years Arrival Date: 12/30/2022 13:06:22 Discharge Diagnosis: Otitis externa, left Primary Care Physician: Mark Pitts DO Provider Information Primary Provider: Javier Woods DO [employer] Supervisor:None The exam and treatment you received in the Emergency Department were for an urgent problem and are not intended as complete care. It is important that you follow up with a doctor, nurse practitioner, or physician?s elementary assistant teacher for ongoing care. If your symptoms become worse or you do not improve as expected and you are unable to reach your usual health care provider, you should return to the Emergency Department. We are available 24 hours a day. JR ELENA has been given the following list of patient education materials, prescriptions and follow-up instructions: Follow-up Instructions: With: Address: When: Mark Pitts [address] [place] [address] Business (1) In 3 days In the event that this physician does not participate in your insurance network, please consult with your insurance company to find a nearby participating provider. Patient Education Materials: A MESSAGE TO ALL PATIENTS REGARDING OPIOIDS PRESCRIPTION OPIOIDS: WHAT YOU NEED TO KNOW Prescription opioids can be used to help relieve wqaofijo-rx-fpmfhm pain and are often prescribed following a [...] struggling with addiction, tell your health care transition mgr and ask for guidance or call [facility]?S National Helpline at 1-214-666-UFNT. m Source: US Department of Health and Human Services/Adeline (more content not included)... [facility] Registrationon 12-27-2022 Registration [id number]#1. 00CD:127 [facility] Consenton 12-26-2022 Consent [id number]# 1.00CD:127 [facility] Registrationon 12-26-2022 Registration [id number]# 1.00CD:127 [facility] Consent for Treatmenton 12-08 Consent for Treatment [id number]#1 .00CD:127 [facility] Discharge Instructionson Discharge Instructions [id number]#1 .00CD:127 [facility] ED Clinical Summaryon 2022 ED Clinical Summary [address] [address] ED Clinical Summary Person Information Name: RJ ELENA [place] Age: 32 Years : 1990 Sex: Female Language: [place] PCP: Mark Pitts DO Marital Status: Single Phone: [phone] Visit Id: Visit Reason: Foot pain-swelling; ROLLED [...] 12/21/2022 14:54:11 12/21/2022 14:54:11 12/21/2022 14:54:11 ADDRESS: [address] [place] [address] [address] [facility] [id number] PHYS DOC NOTES: MEDICAL INFORMATION: Prescriptions Given: [...] Ankle Sprain, Phase I Rehab; Ankle Sprain, Iepo-xx-Odxq Follow up: With: Address: When: Mark Pitts [address] [place], [place] [id number] Business (1) In 3 days 12/24/2022 Comments: Follow-up with your primary care provider in 3 to 5 days. If symptoms worsen, do not improve, or new symptoms arise please report back to emergency department for further evaluation. DIAGNOSIS: Left ankle sprain; Sprain of left foot [facility] ED Note-Physicianon 12-22-19 ED Note-Physician Basic [...] and Complexity of Problems Differential Diagnosis: [] [facility] Data External documents reviewed: [] My [...] medications Follow-up With When Contact Information Mark House In 3 days 12/24/2022 EDT [address] [phone] Business (1) Additional Instructions: Follow-up with your primary care provider in 3 to 5 days. If symptoms worsen, do not improve, or new symptoms arise please report back to emergency department for further evaluation. Patient Education Foot Sprain Elastic Bandage and RICE Therapy Ankle Sprain, Phase II Rehab Ankle Sprain, Phase I Rehab Ankle Sprain, Suqr-xv-Sjbs Attestation Patient seen and evaluated by the physician elementary assistant teacher. Attending physician was present in the emergency department and supervised care. This visit was performed by both the physician and an APC. I performed all aspects of the MDM as documented. This report was transcribed using voice recognition software. Every effort was made to ensure accuracy, however, inadvertent (more content not included)... [facility] Comment on above: Result Comment: Elec [...] on your foot. General instructions ? Take haiy-qcf-rgvneex and prescription medicines only as told by your health care provider. ? When you can walk without pain, wear supportive shoes t (more content not included)... [facility] ED Patient Summaryon 023 ED Patient Summary [address] [address] Patient Discharge Instructions Person Information Name: RJ ELENA Age: 32 Years [facility]: [id number] Arrival Date: 12/21/2022 13:23:04 Discharge Diagnosis: Left ankle sprain; Sprain of left foot Primary Care Physician: Mark Pitts DO Provider Information Primary Provider: Charlie Rubalcava DO [employer] Supervisor:None The exam and treatment you received in the Emergency Department were for an urgent problem and are not intended as complete care. It is important that you follow up with a doctor, nurse practitioner, or physician?s elementary assistant teacher for ongoing care. If your symptoms become worse or you do not improve as expected and you are unable to reach your usual health care provider, you should return to the Emergency Department. We are available 24 hours a day. RJ ELENA has been given the following list of patient education materials, prescriptions and follow-up instructions: Follow-up Instructions: With: Address: When: Mark Pitts [address] [place] [address] Business (1) In 3 days 12/24/2022 Comments: [...] Ankle Sprain, Phase I Rehab; Ankle Sprain, Nmok-cn-Cutx A MESSAGE TO ALL PATIENTS REGARDING OPIOIDS PRESCRIPTION OPIOIDS: WHAT YOU NEED TO KNOW Prescription opioids can be used to help relieve zgpexgkm-na-stpriv pain and are often prescribed following a [...] Drug Administrati (more content not included)... [facility] XR Ankle 3+ Views Lefton XR [...] mGy = . DAP = . [facility] XR Foot 3+ Views Lefton 12-08 [...] mGy = . DAP = . [facility] Registrationon 12-16-2022 Registration [id number]# 1.00CD:127 [facility] Consenton 12-15-2022 Consent [id number]# 1.00CD:127 [facility] Coding Summary.on 09-06-2022 Coding Summary. CD:[id number]:[id number] G h0bWw+PGhlYWQ+EO6FRDO sG35taEWraO4QH2nRYU3E EPJJBGWIKJ2LNO6gmGV8A FacM1BgcvIc JkxnhKJwOP52STm7ADO7t OniSYfcxA3coYTuF9i3Jq GzQP31zM39AScrEVGrNqA 3LjZpbjsgbWFy X8utKrTjmEYwCkg+PHRhY mxlIHdpZHRoPScxMDAlJy MghYfbHC3jQg2lCCMeUYV vbGxhcHNlOiBj j1ncAXAuZVanNX2ncEcyK 0PhfIM5JQVwe4l4Jt05dX I+YOXtWHQ4wJylFUify82 5IdXur0sbYWM2 fRGeYDdgLNM2E45fa8K6W VXfPHBsBWB7wXM3pN4iwE spmaheN0ZlxTFgPrQ8QNU 6fILciV4ldOpn rvjpxV0kGko+X85QSB6QQ YCZUR5LQhv0J1QcNlbopE I+NE20ZSAmAF20gLTwtUV zl1bzzSc8DnQo ENPjWDX7mXzmUIezx3YwG IWdD61yxMMwe5D5GFIdcQ bauJVrNmUtvVI8xF2lNYj sselav0rocakr Ekuiz5oiix75dL56K30vC ScdAGOpQPX7UPSaHCPocF qguk0feV2aSm9+WDoef7x td7txfSx9QtXw LWWhyxUatVgiTIO8d1FxR x96M2VipIxjl3LzAjg2ja 10hGLqw8B6uFD3WWxgHTB nbU4mKFsaCiX8 WUBlNrIexJ20yUVkSWxuV b0wlIqdcYopXL1vEEYatw ynICLflC5eXADipWWpjYe fWB8wZFCecmyn k419EcHpGZG4PWPizQWcY 9TafD9mRtMkYZDsWFHzL9 JucSQuCQdiN604XIlxLtY 5KSUbzaGtO9Bo VKKqkJlmFwM3t1V6Jk4Kj 9AqvpyaDAK2CFzcSCLaAn Y0InEnUjQ5R0MaPyr9NVJ pyIbsKS3uE1Nv PCAjklioznlhrEV7FFRgA LEqxY68qYHvXNwsZy2ci4 K1v969YWNmXTTewS46Yd9 udDogMTBwdCBU sY4xcrqbi1aepowlFpJnB BFvUAa2PQm9GUXduEimJs GcKYY1ZcQ2NVG4hZQsiE4 ptRmbiazoaZ2k Oyc+R61qcT7wZYX1IHA3j mvhZAVamiAgSZ49PR79I7 RyPjwvdGFibGU+PGRpdiB atHeuEI4vWaSe s6kyt1YvJZvyH9ThDNTcX KrnYcy3XNBwCRH8rOX0fG 1tHJTmFCndr3X9bYZ0G8M wbqUdii2bt5ft CIAwGEmdQ67mgYTqt0E0U RPeqYV8UCYxyWouZyCbpE 93Oyc+CSCngZwvo5GbVih lu5zeg8jtzIh8 RgGyIAYxoyFudCfvRIY6u 5YrRd71H39uUXrvFYYmMC CzYLZmWMHivUujkn6spK5 wIi8+PGNvbCB3 xIR2jW6eJWWfYqD2JHobE 398NsYkzBOsRjzbh4ayo0 afyVp6DzHuAXLjcqUaqOp xHQY8b8CmFa18 H18rLVspIHYtFPQnFZSpB ENnrRsyxj5xjS0jGw3+PC 5zf6qkhr17tG95eUL+PHR aNGQ1rLvzOUzt IAXfkJ3zWTtwDkW0RUKeC zSvjH47bUShEZnoBv4hjK yczPwoNP6dYDKgekiiy60 2MlBhd0inIVUi gZRhBKzyEEP6Z65jw3J5E EIuOMHlVSX1mGK9hX0yzT lnbjogbGVmdDsgdmVydGl zUBzxKRpwX953 IHRvcDsnPlBhdGllbnQgT bPqQZv7W5GlHdo7WDYcqL vkPJ3yjYEkVApuPh1klZo hvEzhXR5gLRZl vxbph446LoAuf0niQMTwl VQoCSbnTJW0R60ob5P1WO EySCPkUCJ5mWM9jE5ucSr nbjogbGVmdDsg fsYdiWqhNRimZOabA993E HRvcDsnPkJpcnRoIERhdG D5TK76RG34qTAuo9Z2pUE 8M7DsFWMfnpxm roxhkXT9STEyKMGxiA46J w5heLilPw2pSIBuFUF2MS MpxCQwI1CuhD1bJhAeSZC mUUIuO2HncLGc TGjhI707CNgjTyU5TNDlp oVnR8ZzDRLitKmaHpZ4u0 E3Ca7ZI5B0VX04LP80jLN hb7V5iCF5K1Qe JLQmwmqvogdsgMU4WRUxR NIgsX84Be8vmEulSe3pHG AsZWU0XPLulYYdB4IwdI0 yOiAjMDAwMDAw P0LdfHEvJUdgN058YBkhZ oV1KMNxyrWeI2DmZIBdqG dwDfA6i9I5Hj9TIEr9ND6 8EL11tYGpg8I0 fVP9G3XtVEDbqiyxvjzju CN7NLDnRJEdgP53Kr9ouN mtJk1iZJDgPBL2HTMyoDS gI5GdkU6aApHv SBDuARYtN0DoaXQxCDxsS 501BNgtFfH9QZTjlmTeD3 IiAMKlaTdnDvA3h4A5Ru1 WDHOaVF08IHE4 gXH6DD24MO44D6EpVdkrr GFibGU+PHRhYmxlIHdpZH RoPScxMDAlJyBzdHlsZT0 yJf2dPQCbCOTr fDxkcUSlJwHtm8tqRHKgP CmlSS9fwNggI0SgcDU7SR Xpy8y5Ac28Q24iE3ZcrRE +FSOmyPF3aLG6 jO3hSkRuQwJ3YOztB390C gUljDNjTbbzz5zhg5iqtV p7SbB3ZOXjubSlzCzhBHF 0i3CoVl70O10c IHdpZHRoPSIxNSUiIHZhb Cbwjn5beW4nZq9+PGNvbC G3rBL7yP9gDzUgUeH5KSb lY851KgGigCMt Xtudf8suk1oulNs1LqNwH IEbnmZuaDisCUA8j2MkFo 70D4MyfDncw9SnDaf3wi9 1cBGuw6Q8iSM9 S2EyOWWzupgltUXoaTycZ K4xYOBeksauZZUqoP8nOO YpM4u5GmTnAcY3LDwaF1Y lkyO8PAJblGQu GXtkRLJ4A65lw6A8SFTgV MGiDHJ9mLR0eR7dxTrkhp ogbGVmdDsgdmVydGljYWw nFIfkA551OEQw iIkyLIWavV6xUQRxuHWfj AwiWO5xYYBrzdqqKyMIYX JPNHucLEOAE9DOSOtZBVF gRzwvdGQ+PHRk BVG2eNljUHqxEIHadY9pX BPjW5y4GpIfQxW8KBjmA3 JjRMUhuhccUs27aF5xZnS qUiU3GPmrC2Vn reU2XHNaxIPxQRryGDH6U 92tz1P2HPIxCXEbFCV0iN E3uU0wxGheazwzoEHiuLv gdmVydGljYWwt EIzmJ327JDBjmMweQwHgL wY1CrD7ATY6O8EcQab0GH QzgSetEW1mqAXjZIdlLl6 baKfxeXilME4f BAHzvrtbINPujN4rAKZyi CVhkDwrHE6gMNDvgekdt5 77DqUrNEO9JMBsbCPwY4H mgW7tGwGaOBIt EZAsL8GowDQiFUzmR113A AdiHrR8NKUzhnIoR8LzQF PyhXoyXgD8j3H7Hj4dTlV ZZWFyczwvdGQ+ FJVdIRL9yXssIWesUTQyk P6yNHHgB7c3RwTdUjP9ME igL3RkXIGnpbvnVk70aD0 eTuCvVyE3RJhu O5RgpjW2QSXilQVtFQadY TM5H80iy3O6XOCaFJLfXF V8vCD0pG8yqHjbjesnsUC mdDsgdmVydGlj KRcuUTlcX316SFGjkIwiY kZlbWFsZTwvdGQ+PHRkIH H3wZxgGNxeQOBykU0tGPR eN7x3YrUfTfT4 ZBnlD6VaKBMpduxtTm26k P8fAlRmRkL3AZzzD6Syju A0XBNtaMJvZWdcEJY0N37 zt9A1FXPkSPLf GLC8gKF0nD6wnDujqrxcm GVmdDsgdmVydGljYWwtYW glT743FBOqwXtyWpQvOTI uQS8etQnreIR+ RO94vm92K4YxIdhmTkq5T VIrQEW5pZR1dX1dPHMgXN vfz1F9yGZ6J4TpvfEfio2 sb7goWYCfQKwv W56hyBMqf2G7PBUulIV3E LBirEmdWyRctO03Qvf+PG WykRetm6LrUwumg8rwx7r ewFw5SuXfXWSi olXeqEecXNX3k1TiEv90G 29sIHdpZHRoPSIzMCUiIH OmmBshyu6yoP5pRc5+PGN hkCY8xEV8sX1u RdKlBxV8GLukO023SyHpa FCcCyegs1pgb1zflUl0Fm LdVWGdunYjmVagTUX5a5E rDk39N1YodZya h8RtOhf3ko55dMMif5O7f PG2V5OgSOLfvyyszAFqdI frCI6nNZXgmcdzDJToqK9 nIAAsW8n1IcRv OfK2WWznB0StqgE3QALin RLbWVMzeSRZeS1tjlhkf1 iwdesyEaIjHMSmQNm5QSf 0LWFsaWduOiBs NVB3RkP6FRK0hSVjgA5wl GidxydiiR7hPsh+UGh5c2 rrhFHsHH9jrAF9BD99QS8 6oOEla9X8wUW2 Y8HaRMAdobzakgekoET5G UKnELVayP00Ot8bgPgiUm 6fHDYwEOO4ETKdhLXlF1J bcG5rHsIqURXk WFFcU2QkuNGfLYklA608B JlgLnU4SXWnxoDhP9EfRY RigTfmSuL5q3B9Yg5LZW6 2UU25RU86uRKs x3L2oUE6R1TbCBHoxexxp wuvbXM5HAQyPKAgdX20Yo 7uqYmvGk3mRGMoRAC1YAM sjWXoB6EccB8r OsRiHOTaHJClE9KxdBUgP IypQ554QJriIsJ5FXCffk ArQ0EuDVFutMomGnY3k5L 8Wq2DRw68HO22 ZV46xYKfo8D0wMX2S6WsW PTxdqtazzmirNB4TYEzQL AuiI05We5jiDteMe7dZPU gIII3VBBzrXHb D4OrpW4rIfWjVMLfHQXdJ 9DtqTTcZDvhC164VOrrGi J1ZEZqjuFkU5PqCHQliMy pPsT5b7G4Ta6C SDueqra3Y7MiGzafbGL+P D66PPYrCR44rWMwvALzu2 kuyTn7EeHpOQYbHNM2vRc nMIlgi8TxEKIk Y29s (more content not included)... [facility] Coding Summary. CD:979298LY:9021649S G h0bWw+PGhlYWQ+TR6MKQY rR19hnSCbhF9NE4iUTP5P OJMGZDUPHQ1KES3nsHS2W DetJ6PtnhNs OvwdbWPvHI70LXc3EQA6l MkpPVqecY6ocAOlI0d1Ge DmUB00jV92FUpzKAJxQtB 3LjZpbjsgbWFy L0qvWaTdvGDqGzr+PHRhY mxlIHdpZHRoPScxMDAlJy XlgWspVV8jXb7bJWYwDKM vbGxhcHNlOiBj g3prFTEzKCewET5pmPdwP 5BawOD4PDAas9l8Bx11iH I+WJEcLYT4kWubDBqkn99 4KrIyk9bsPKY8 jULeDRtoEBK4W57cw8A7N WHbLDFzCBG7gKC0lM8jwF tvhchmD3VrnLLtBjO4JKT 5wRVqqT7xeFhm lmgboN4hAgn+W38QXX0WN NTLPX7RNuj0G5QrRlvywR I+FH48DFLoQD42fFLviAN yu8ktyAf1EoNg XVUgPJK3mEraHOmfu5MqZ HRmF71piYNfg2X8XCGwpX pnnHRxGzCheJJ1aZ1mFPj pwawje3xjwivw Xgszu7jiba79jO65U40eS RwnXFEqGZL4IJJfBXNzbX tptf9elC2xPz5+BHfes0j vk5qqzAf0IgYo XHPlmzIlbQtpFNJ8e9UnY w01X7MfyTmnu1JyNdy5oy 88vSRez1O8iAY6FHekPBR evF9pLMstNuL6 AXRhIzFgjT12lNYqNAurY r5hvMrjsMszAD6vIPMqdp bsHISiqQ8lZMPnqMVezFg iKH2oUNNfjxtc f627VwDtBXB5QMIkyMVmS 5UvkR8jWsVhZUDzSTVrA9 JutSIxXAyjR023ZAeyLrW 0GTJronUmH7Tg EKNzfKxaQrL3q3I1Px5Tb 9IbputtCSC0PMwjFNTyRg Q0TvOkLfM0O5LxHzm4FGU hyQbtOI7aP4Rc DBRdecyatggutJJ9INOsF YPyaD19aCYvGSzxSi6gp0 M1l227PHWnFPCdiE16Ya1 udDogMTBwdCBU zK4ildqmf5cpxydoJeOcR RHcYVf9SJi2ELRirTzuVh JvKMA3SjF9BRF9yNLnrQ0 baXmsfbowaP3c Oyc+E13pgN8mUCG1MSE1x eahAUUzorXdUL47VB88J7 RyPjwvdGFibGU+PGRpdiB kyXjxSE3iFoYk p8pql7TmJNyaR0GzVEFfA RetWhu2QWQkKIJ8lVW1zC 5cWEBiMOiwf1G4rKT3R8I yfoBboe5fz5wn CFMaSSqmS41lgOTml6L7E HBonJY5QZIvaFcvLkBwpG 93Oyc+JKUeiNnzz3HfTta ed3oxs4zweSf6 OuToKQObiwFiuDzbRQF2s 6HxMe30T56yLXwcACTjIM QhSNXoEOFklLxyqq6cuQ4 wIi8+PGNvbCB3 bQZ9xD6dLHQyNxT5EKrqA 281MfOylPUtYwbwk8sel0 vosHv3AbIkNKJqehRwzEx gTDT2x0FrTe80 B95tGZmkPGFcIVXlICEsH GKjqEifhc4odL2fPj9+PC 0fw6rnkd80rZ84cBI+PHR qVQG2oGxxYCmj YSTkbA6wVAlyGaF2TVLlB oEniP17eNZnSSsyHm0flR irjVlfBV1oUYLwahibt14 4FxEhv6hkRQWq vBJyUMjvFBO9G82ic2H1W YReXPLmNMC3eLJ0dV3yiD lnbjogbGVmdDsgdmVydGl bXUxwXVhhO999 IHRvcDsnPlBhdGllbnQgT jRsKLq7N4TkCjh5KLVhdW cdNK5zfFArRMtrYx0bdQt mkTgmMJ2gSNAv zzggp686GmMsp9tyAMKhm AUvGKffYJC5O94sw7J7OK TwEAKdZKR7hQT9iD5clTa nbjogbGVmdDsg zsSozOieCUwcSVztT444D HRvcDsnPkJpcnRoIERhdG T5DW27DD67rJVqq6P3xPE 6C7VqFAGeinlj tegkaIR8UDIzBHIgrG15Q g7njZitVk4jWPFdRIZ0BL GgoEViU4LzpP9gVzXrFNC vVEQjO6NkwIGk TGgcD669JDhgGcO8BNIbe jWfB6WeBENbxTonYaN7p0 G4Lm1BC2Q3WD60LW21qUC ri2M6iDQ1C7Vv ELUlnnidtbbeaOD3XJRnJ VVitH44Pc0hqOlsBe9fOZ NvBFE6UGLbkLUyO4FgpI7 yOiAjMDAwMDAw W3FdrKZpZMluA153CWvpQ sV6FAHqrzUnD9OlINCvdG poKaJ9r8C6Lb7QWDj9SY3 4NW20sITzu8T4 eMP9R5VvCCYsfudfqvlwh FS0ZZGxEKLsjX83Ni0htY qiSd0eNOPxPPS0NAVtyHL zM8IfjY0cHoWk RUArXJOmF3UfrOLrZNcdS 112LUksLeP5DYRjfvVrC2 WxIKGxmXsjFvO9c0W0Fj3 AAVPzFY26TNE3 oPE9VT85VR63M7UyLrdde GFibGU+PHRhYmxlIHdpZH RoPScxMDAlJyBzdHlsZT0 nSe8jSUGtGZBo uSmlbPZbMaKrg7gfICQkY ZidWQ7moQmbO8LbrQA2BZ Qua7o3Bu21D64uR9HijXY +SLZziHD6yBX0 iB1kHqTkSfW0DVsyG223F yUjgKYuXgbgi7xrr1jluY w8BbH5PZWocrPktLjxNGT 5c8DzPx15G39v IHdpZHRoPSIxNSUiIHZhb Dvyxv0ueW9xGz2+PGNvbC T4qXM3xP4mStApTbQ1OYi pS993QzEnnKQw Qbmip6tme1uexNu0IyHxS LRgmaXvdQbwODQ5v9ZcXb 68B4AdbMews0YtYzd7jk5 2fNMdb9C3tZB3 G0OsQVUxdmwmwEOjqAzxZ E2mNDOznduaLMQsiZ1eFO QdK9f3TxIpQmY6UPmzU9H sgqJ3RDCjkFWh BNvxDQO8E57bi2Y6PMNjO UHdJXF6sNN1iB5mwKraih ogbGVmdDsgdmVydGljYWw oLTwzL228BWWj eLilHKOcuK4cATEydWHes WsiVH0rBTFvkejlOmAKCT KSOVetTZDZY1AMSGnUSCK gRzwvdGQ+PHRk NRK6uGugBBjtKLCbeF0qF WGjH8l5TyKjBoV4PNykG3 SwPGAptpleIa86oO1uZbW kAfN8NMbuM2Ul doJ6RZSdzVBeDVlvGWL7I 05hj4G0VEUkYLYkZIQ8rK K2bK5pcAbjyxloyXVxuKq gdmVydGljYWwt IVteQ240QYFynOjyJkXsI aG9TpQ4SQU5K9ZkMgg2ZE GfsYspEK4vcJEiQKuiEg2 bbEkcpHeuNQ6r BXOugdlsQNFleB8qNGLkn KEmpSklMS5oEKFflbmii0 24EtKxIJA9LJNjyQLpX7B bfY0dVgSpLPAi VFBsX9WulFYeCRzvO425Z FavYiN1DZOdfqJzY1HtRD OfpUrlMnW9t0E6Ye8gYlS ZZWFyczwvdGQ+ PFGbOHR2rHzzZNmtMLGbc V0cTPEwO8b9CrSeUgB2AY cgO2GpIDJwricqDq83aW6 aAlDeYmW4BMkd M2WoebK8XIMzuHNtUCrfP OE9Y67jy1V3GBPwIJGkZK L0jAU4tY5xwQvbezbxlDR mdDsgdmVydGlj UFwyGNcsO165TPCdeNyvZ kZlbWFsZTwvdGQ+PHRkIH F0vHncVZruNHAebF3oWQD wR7o0GlWqFaI5 IDtyS4YbYFOlpyvtCd92d U0qUyRkAgI8OCtlV0Cqoc Y2IFAkyOXsVYreZJQ6K64 sr0S9WHLoRITq OOE8xKY0aL4nyHnzxwxja GVmdDsgdmVydGljYWwtYW piC296JVNhsTvaNmRgRWS vUW4rfXesgJK+ CV38tx84V5TxTytkSvi7Q AXiEIY1tOD2lX9lPZMiHI oxw7B9yOV7L5VteoFnpl5 by8twXTOsIAij V88qpELjt3D9AXOjzZB0D EMknZrcMcTqlU29Jex+PG ItjRjuj9UpQzzol5rka9o bkQl5CqZcGZEx weBxlKzsART8z4YiMa66G 29sIHdpZHRoPSIzMCUiIH LuhZvnse4nxW2zOk8+PGN snKF2pYC1gJ9x IoFbAeX6KDesO886EaCdq RNfRimqk0mwz4infEs5Me PrKDFwgdGjpExlKUB1w2S iZy35D5LjlWwb m8ZlAhb4sg69sTKct3V9t NY2Q5GuDAUbluwqzQBecJ cmOD8wTIPajaldQEQqyQ1 mLWOgL9v2KbXv YqX5OVlgA9GqfeP5NXCcv KAdGTNfbZNOtJ0oybsyk4 jlmjwaWeTgTKTpBBt0SRq 0LWFsaWduOiBs YHW5DoL5NPZ2pPEocL1vm WevwmjfdF5hEad+UGh5c2 mblGLzSJ2ceCB3XR67MP1 7qZPho6H4eHQ9 X2DnEYClokogzdlnbXW9X PZzHQFykU50Fj1qmAapVo 0rOCRtYFQ8PVVcaTBmA9Q jpG7hMtWyPFQb LXUsB1OndHQoGVtgK136T EvxAbW4FJRystIoN4JbBJ DygNqrKaI1y5D8Xf8GEQ1 0DZ84LH24uQVh k7J0vTK5M8PfEIVnpcbkx grdlXZ8GCKoXNYlwN74If 0szNcgZu6oDEUnSTM8COE nmPDaE9LzcC4j XnUnDYRpYMDeQ8GriKKsB LhaU501SFssWkX8HSNhwr BeE6JtKQHdyWibRxF7b5E 2Is2PNu87GY08 TR44rOSct5C7vWH8U6DrM DClnuofequwmIV6KKTaXO TkzY79Mt3bpChcGt6pXBK kLLJ8NKChjRYt P5JugA5eVtWaNAPjWBEwF 3XgoRPmMGebF030YKuuIy E2KECtjoIiI6UeHVAveDm tHxB8m9Z0Ve4B DPcjlwc3V4UbOzjdyQT+P G39HXFwVX79dROqoPHce8 fnuFt1WtWjKBXkEIX6jNy gIOrlu1UiGIUc Y29s (more content not included)... Normal [facility] Discharge Instructionson Discharge Instructions [id number]# 1.00CD:127 Normal [facility] ED Clinical Summaryon 2022 ED Clinical Summary [place] [id number] ED Clinical Summary Person Information Name: SHABANA ELENACLARISSARADHA Nicky Calista/[facility] Age: 32 Years : 1990 Sex: Female Language: [place] PCP: Mark Pitts DO Marital Status: Single Phone: [phone] Visit Id: Visit Reason: Rash; Allergic reaction [...] 09/05/2022 22:58:39 09/05/2022 22:58:39 09/05/2022 22:58:39 ADDRESS: [address] [place] [address] [facility] [place] [id number] PHYS DOC NOTES: MEDICAL INFORMATION: Prescriptions Given: Medications to Continue Taking That Have Changed [facility], [address] [place], [place] [id number], [phone] START: predniSONE (predniSONE 20 mg Tab) 3 [...] Refills: 0. PATIENT EDUCATION INFORMATION: Instructions: Nate, Yduk-bk-Nxqk Follow up: With: Address: When: KATJA MCGINNIS [address] [place] [phone] Business (1) In 3 days 09/08/2022 Comments: Follow-up for further evaluation of your urticarial rashes and reactions. With: Address: When: [address] [address] [address] (1) In 3 days DIAGNOSIS: Allergic reaction; Urticaria Normal [facility] ED Note-Physicianon 09-06-19 ED Note-Physician Basic [...] that she has never follow-up with an social work case manager before. Denies any chest pain. Denies any [...] and Complexity of Problems Differential Diagnosis: [] [facility] Data External documents reviewed: [] My [...] I do want her to see her social work case manager. Discussed return precautions. Follow-up with your primary [...] Once, # 1 kit(s), Refills(s) 1, Pharmacy: [facility] (more content not included)... Normal [facility] Comment on above: Result Comment: Elec [...] Being allergic to foods such as: ? [place] fruits. ? Milk. ? Eggs. ? Peanuts. [...] at home: Medicines ? Take or apply kygr-xys-ziekecy and prescription medicines only as told by [...] causes your hives. ? Take and apply mgjn-xlb-rsfdbjt and prescription medicines only as told by [...] Reviewed: 01/09/2019 Elsevier Patient Education ? 2019 [employer]. Normal [facility] ED Patient Summaryon 023 ED Patient Summary [address] [address] Patient Discharge Instructions Person Information Name: RJ ELENA Age: 32 Years Arrival Date: 09/05/2022 21:00:52 Discharge Diagnosis: Allergic reaction; Urticaria Primary Care Physician: Mark Pitts DO Provider Information Primary Provider: Quita Clark DO [employer] Supervisor:None The exam and treatment you received in the Emergency Department were for an urgent problem and are not intended as complete care. It is important that you follow up with a doctor, nurse practitioner, or physician?s elementary assistant teacher for ongoing care. If your symptoms become [...] Instructions: With: Address: When: KATJA MCGINNIS [address], [place] [address] Business (1) In 3 days 09/08/2022 Comments: Follow-up for further evaluation of your urticarial rashes and reactions. With: Address: When: Mark Pitts [address] [place] [address] Business (1) In 3 days In the event that this physician does not participate in your insurance network, please consult with your insurance company to find a nearby participating provider. Patient Education Materials: Hives, Xfun-gm-Huta A MESSAGE TO ALL PATIENTS REGARDING OPIOIDS PRESCRIPTION OPIOIDS: WHAT YOU NEED TO KNOW Prescription opioids can be used to help relieve fmkamxcj-ge-nizxbo pain and are often prescribed following a [...] of opioid (more content not included)... Normal [facility] Monitor Recordon 09-06-2022 Monitor Record [id number]# 1.00CD:127 [facility] Consent for Treatmenton 08-11 Consent for Treatment [id number]#1 .00CD:127 [facility] Discharge Instructionson Discharge Instructions [id number]# 1.00CD:127 [facility] ED Clinical Summaryon 2022 ED Clinical Summary [place] [id number] ED Clinical Summary Person Information Name: RJ ELENA Nicky Calista/[facility] Age: 32 Years : 1990 Sex: Female Language: [place] PCP: Mark Pitts DO Marital Status: Single Phone: [phone] Visit Id: Visit Reason: Cough; Diarrhea; Fever; [...] 09/04/2022 14:23:43 09/04/2022 14:23:43 09/04/2022 14:23:43 ADDRESS: [address] [place] [address] [address] [facility] [id number] PHYS DOC NOTES: MEDICAL INFORMATION: Prescriptions Given: New Medications [facility], [address] [place], [place] [id number], [phone] brompheniramine/dextr omethorphan/PSE (Bromfed DM oral syrup) 5 [...] Infection, Adult Follow up: With: Address: When: [address] [address] Business (1) In 3 days 09/07/2022 Comments: Return to the emergency room if your symptoms get worse or any new symptoms DIAGNOSIS: 1:Upper respiratory infection Normal [facility] ED Note-Physicianon 09-04-19 ED Note-Physician Basic [...] and Complexity of Problems Differential Diagnosis: [] [facility] Data External documents reviewed: [] My [...] for cold symptoms, 200 mL, Refill(s) 0, [facility], 160, cm, 09/04/22 13:15:00 EST, Height/Length Dosing, 85.6, kg, 09/04/22 13:15:00 EST, Weight Dosing Influenza A&B Ag Rapid COVID Antigen [place] Disposition Plan Patient Discharge Condition Stable Discharge Disposition Discharged home Discharge Prescription List Prescriptions Bromfed DM oral syrup, 5 mL, Oral, QID, PRN Follow-up With When Contact Information Mark Pitts In 3 days 09/07/[address] [place] [address] [facility] (1) Additional Instructions: Return to [...] 03/08/2019 (more content not included)... Normal [facility] Comment on above: Result Comment: Elec [...] to help relieve symptoms, such as: ? Tvqz-wfk-qqlcpcr cold medicines. ? Cough suppressants. Coughing is [...] other clear broths. General instructions ? Take xcpp-pfo-skgptfe and prescription medicines only as told by [...] and water are not available, use hand medical coding instructor. ? Avoid touching your mouth, face, eyes, [...] common infecti (more content not included)... Normal [facility] ED Patient Summaryon 023 ED Patient Summary [place] [address] Patient Discharge Instructions Person Information Name: RJ ELENA Age: 32 Years Arrival Date: 09/04/2022 12:56:58 Discharge Diagnosis: 1:Upper respiratory infection Primary Care Physician: Mark Pitts DO Provider Information Primary Provider: Solo Kimble M.D. [employer] Supervisor:None The exam and treatment you received in the Emergency Department were for an urgent problem and are not intended as complete care. It is important that you follow up with a doctor, nurse practitioner, or physician?s elementary assistant teacher for ongoing care. If your symptoms become worse or you do not improve as expected and you are unable to reach your usual health care provider, you should return to the Emergency Department. We are available 24 hours a day. RJ ELENA has been given the following list of patient education materials, prescriptions and follow-up instructions: Follow-up Instructions: With: Address: When: Mark Pitts [address] [place] [phone] [address] (1) In 3 days 09/07/2022 Comments: Return [...] opioids can be used to help relieve dyppfhip-uk-uzridd pain and are often prescribed following a [...] care p (more content not included)... Normal [facility] Influenza A&B Agon 3 Influenzae A Ag Negative Normal Negative [facility] Comment on above: Performed By: #### 2 [id number], [id number] #### [facility] [address] [place] [address] Influenzae B Ag Negative Normal Negative [facility] Comment on above: Result Comment: Test sensitivity and specificity vary for age group, specimen type, antigen types, and prevalence of disease. Test results must be evaluated in conjunction with other clinical data available to the physician. Individuals who received nasally administered Influenza A vaccine may have positive test results up to 3 days after vaccination. Performed By: #### 2 [id number], [id number] #### [facility] [address] [place] [address] Prescriptions/Work Noteson 0 2-26-2023 Prescriptions/Work Notes [id number]# 1.00CD:127 Normal [facility] Rapid COVID Antigen ([facility])on 09-04-2022 Rapid COV Int NEG Ctl Pass Normal [facility] Comment on above: Performed By: #### 2 [id number], [id number] ####[facility] [address] [place] [address] Rapid COV Int POS Ctl Pass Normal [facility] Comment on above: Performed By: #### 2 [id number], [id number] ####[facility] [address] [place] [address] SARS-CoV+SARS-CoV-2 (COVID-19) Ag IA.rapid Ql (Resp) Not detected Normal Not Detected [facility] Comment on above: Result Comment: The Karmasphere System for Rapid Detection of SARS-CoV-2 is [...] or revoked sooner. Performed By: #### 2 [id number], [id number] ####[place] [address] ADMITTED TO INTENSIVE CARE UNIT FOR CONDITION OF INTEREST:FIND:PT: NO Normal [facility] Comment on above: Performed By: #### 2 [id number], [id number] ####[place] [address] EMPLOYED IN A HEALTHCARE SETTING:FIND:PT: NO Normal [facility] Comment on above: Performed By: #### 2 [id number], [id number] ####[place] [address] FIRST TEST FOR CONDITION OF INTEREST:FIND:PT: Unknown Normal [facility] Comment on above: Performed By: #### 2 [id number], [id number] ####[place] [address] HAS SYMPTOMS RELATED TO CONDITION OF INTEREST:FIND:PT: YES Normal [facility] Comment on above: Performed By: #### 2 [id number], [id number] ####[place] [address] HOSPITALIZED FOR CONDITION OF INTEREST:FIND:PT: NO Normal [facility] Comment on above: Performed By: #### 2 [id number], [id number] ####[place] [id number] STATUS:FIND:PT: Unknown Normal [facility] Comment on above: Performed By: #### 2 [id number], [id number] ####[place] [address] [place] [address] RESIDES IN A CONGREGATE CARE SETTING:FIND:PT: NO Normal [facility] Comment on above: Performed By: #### 2 [id number], [id number] ####[facility] [address] [place] [address] Coding Summary.on 07-28-2022 Coding Summary. CD:[id number] G h0bWw+PGhlYWQ+IP0UNSS eT88gxJWxiH0LK5pVKY2S OSHMTDZTAR1OIV8buPF8B DjeM4PikbFl MmaarKRlJC13DZx5TSP3r NlxBQtfmG0tfYUlY1o7Af NlTK07mN12EZagYJDfNgK 3LjZpbjsgbWFy D6wfQlSnmANkYlv+PHRhY mxlIHdpZHRoPScxMDAlJy FloZnqDI8nHw7bINDpOVW vbGxhcHNlOiBj f7zzIOXxKKhpRC5bvPgyT 6MphBL2AKYrg2x2Bq22eZ I+HGIyWYZ1qMiiPZzzm32 5ErJva3gpWDZ8 jVMgKEdvBKX8L60tn8G6H WDtLBKcMND6lZL7zM1tqG ootnxzU7KgaJAjPqT3VSM 4aEMseX0juYkb thrloK9rOfw+X67DKN1DS TKNTO3RXeb3U3OcNexzwW I+NR28VFVvEH70iEGycFD ra9uylLb7OrNs JVKhQGW6oGdfUAxdj9ZsA BQeV36wrCAxh0Q1FCBcrA eifOPgHtEjzOH1vV2lMKu yatobj4axwgkz Iikto4aiip51cE10S38fJ EtcSDGpKUV6OBZqOUYzlN iuse2qkE6kAc2+NCvfb3i cf1dmfOt3HjCc HWNldsZhpWcnHCA6l5AdK j74T5GvbJjyi0VuFuu8ff 82nOBiu0H9nND1KSpuENO egT7jJVocWiF7 OEEcOdQmpW70jQDyXTgsB a0okQqzgNxcNQ6dMIYdov vfYZDlkN3wWDXbvQMheBc uTZ4tYGGfozxw k602BiFnXJM1LSCfcLVyV 7PfnI1kXzDhREHyKIOiR9 PeyYPsOPkvP787UZenDbS 7KOGuogVxM9Bn GJHmaXndQyC1g8E9Ry0Yi 7DeudvzOQR8OUcvZIHgBi R6DgPuItS5N3PqDxo2QVW jgQhbMN6pA0Qg TNRhtuovzxbhbFC2SJPnA TBmiV61sQSmEOwbGx1wt5 Y1g140SJPvVOUyhC15Ml5 udDogMTBwdCBU gP0qffztk8fxwsovToShB YGfIFh9MEq7UJXrzYjhPm GmKUX5PjP3ICT7bDEycA3 rqNpsjodwcN4w Oyc+R43nxY7tIDC1LUH3n srsWTMtlwXrYV05AF65O0 RyPjwvdGFibGU+PGRpdiB mwEkeNY8sVoIl b5pxb9XxEGrmW6IwSKPhJ YpbAgd7JQLpBLE7aHY8cC 4fWHZrRLdnu0F4qLO4X5Q bngTcnj3fn9xq NUVcUXdgY69jeFYss0R9D VYptTG2TDCdvItnOvSbpO 93Oyc+GYDosQvqt9UrDzb ff4euw0zedLd0 NsXpNBUivpSzgLykZHO3f 1SuOl95X98oENrjEQXsSR PjQIHyESRxaOxccv4svE0 wIi8+PGNvbCB3 rIF3yN0gBRBjGtL2TJfnE 759CtOukTPeWlypz7niv9 wtyAr9NtVaRMDispDonTr mVXO5c5SkQs08 Y76qJYooGIKgHVJtDVBcP XEkdKzbhk0xjF4hKw0+PC 8nr0biam70bG31fVI+PHR mPGA2mFlpRQzk ZGYegH1bQIknAqH7YKYdN yWhjU00jKLmVYjgHn3amE wknToeOZ9xGHPyapdbm72 9HqPcl8mcMBRy uWAvOZmxONN6A25em6A9E WSaCDZkVGX1aWH4zT7vqK lnbjogbGVmdDsgdmVydGl yMCksQGbjB080 IHRvcDsnPlBhdGllbnQgT qKeKRa2G9CsMog2BSDbsO loQM8uyOAwBIstRj9tkKi elWbfCJ0rVQRg pxgun894VmEly0jpKYApz ZQuSHlqHFP6U19zi1W9LG RvFJRkUER4iCG6sC3bjOx nbjogbGVmdDsg rpDokRldZHytSLhdV731I HRvcDsnPkJpcnRoIERhdG X5MC79CM83zPRoa3E9vUH 3C1KoTVWaazfa qpmwaHF6CLRfBDVqfT06D v1viTbfEq7nUGGrBJY4SX PebIJtG8UseY9bOkFpYWZ hBPXwK8RazACm ZRioV040SYueOpU5NRGlh rRiP7RrSARoeNmpYgI2p5 X5Eg2SQ4V0LX77HS61jNJ kd0Z5uBP0Y2Eh DUWovkubisyynQC1KWUkY EGgpA69Ic0zkAqqTd0qQB HsNVI6WYNmwWWtP5QfqC1 yOiAjMDAwMDAw J0RlbUOaFYqcF998KCkrZ kA9YCVikgRsD4ZiOMOerP nuZtZ6v7V3Nd3XWYp0EC8 4XR32fPEwv5N0 aXO2K4SiFLOxifphydxtb YA9WEZuMEPsvD57Vo3ouB crAg1nNTKeUAS4RPVobLK fC0IoiV2eVxFd QNUqLATiC0ZreSIiUMplC 313BRoyCkU0ONSufgVfZ1 RrUUGhmVgtObT5o8T8Gj5 DMKPvIC31DAM5 mIE2IQ83KJ79B0ZbPxfha GFibGU+PHRhYmxlIHdpZH RoPScxMDAlJyBzdHlsZT0 rRt0oLVFgCHHm iXejkRPwMyQaw7paVZOyO VflVJ8szDluT6GhqUR8RM Sxm0z1Jd09N13kI5BjzQC +LPNigFN6nAY3 sS3oMfIaVyK3VOkkU187I yNrhDAqJdaeg6eux1fdqV b9ZkC4ESIihtZyuBbmUJT 3u6SvTv34C32u IHdpZHRoPSIxNSUiIHZhb Ftcuy0elC5tJb4+PGNvbC U5nGQ4iE9aTvMzJkI1JPk pL722YiHmrAKg Mhptq7hgf6hzxKw3KkLmM NOrirBmmRrgXAX5x0LoNc 31K4DprTzrb7RfKcs1we2 6aDSjs7Y9oWL2 D5TkOZAolgzakFGzpKcoC U6sZNOcrjbiTAXagN2qFI SgE3y5BtQgTyL4AYmlJ7K azuP5VEZnrDEp TKxsLUV2Z59ht1W3OSIxT URkGFN9fMB2rR0rjKtofe ogbGVmdDsgdmVydGljYWw tFCukF366AZUy yMbyZYHwhW2pCXFbdRYvb TbzLZ3oDMYftoldKiDFHF MDSUieOWYWA3WSVMlYWUL gRzwvdGQ+PHRk DBH0yQlxUJxgMYKicV4jF ECzT9o3GrOjZlT2WFaqK7 TwFPBsusikEj56kF5vDeN dWxC2WMbgN0Yw viT2QFYscWFgLVquLLD9X 95gs9S5IGFmSTWfSXL2hW D0nY7xhVjbvnbjpYQadAn gdmVydGljYWwt MWxaW412HMZfsEpxTsHuK uQ1KjT5WWX1A1QiMcy1CQ GxeEifOU7uzAToGWjvBg4 klBhuwUpcZX4m BVIdaaxcSUMurI7dBZFmm ZIezCimPS8pWQQujwjpb6 38PuGoIZG3UKRouJKcZ3X udH2uIrTuFROy UVTfU5LljTQfIWgrK031B HvkAmC6XZEbrrZjT3ShTI CrhKcrRsA2l2S3Yq3eMcC ZZWFyczwvdGQ+ YBKlXHA0cGnhGKvmCCClp N0jDYVxF8t0LtRhEoN5JR dsS4DaLTYdxjfoWd29xQ6 rExJbHaZ5RVbp Q8KrmcH2JYJneTXqOUifH UL8S83yf2X1FGQtCWZsRY X6xEN5fL9reWhvifllfNF mdDsgdmVydGlj ZPaiKPijJ582WYPpwNiqJ kZlbWFsZTwvdGQ+PHRkIH D9hInmQTceIMIhtP0oTXW rD0x6KkRsMqQ2 UIybW0FoMASpkutqGm65i U9bVyMfZnW8XFxiA3Yalp T3NIYhtKKwBNveLQJ2Z56 wb2G5GNDbWUBd MVC1fQU8oG7ibTlcvxxkd GVmdDsgdmVydGljYWwtYW nbW113AOKyxHbhWhNpXBK uLE9tpHgmtJA+ BH09pi36A1JzMwebJev0Q FKzUMM0pZW6sQ1xVEStQG eod6I9tOE0G6TaohEqbz6 dm0rtCUAvBVir B96dlUAib9C9FTIksFB2O ZBqpOpoYyBenU15Wvv+PG ZmcSghv5VhDcuhd2bjm8i dnRk8MaSlQJAf taLdrTplTCA5q0AzPw57W 29sIHdpZHRoPSIzMCUiIH UljAhecv1moB4pCm3+PGN thED6xKO3qW3h RqStLhA5CHjuD359OrZll IKcEjkyc6jeg0yjrAw7Ad UxFHTgdvWxrLpfEKS0z9X qEz81W5XndSyi o2QzPvq3wc80xRUer7T6j BC7K5SgIJKwxgimiCAndL vfBO1aFBUuiyubIECknE0 pXRPnL7p4KeZl QfM3PBnaN8WmzcX8TPTvv HTlTMDasRKJzA6jvxiqb7 tdjllvMrMaHJUnQAr0LSh 0LWFsaWduOiBs ARC7EoD1NZK4zEUkpN5im FdvupdeyE4uHlk+UGh5c2 lhsLRrEL5knSK2NZ10MX8 0rIKdw2I2nIH6 C0WoDCWpknjfzxzspKO8I JKjYVVzmA75Nj6jeMiwPg 0pCYItJMJ9IWMltPDsP9S ywO8tHmAqMERf PFRjO9ZztENgCSdiT425N KqpOrG8LTFzrrBeU6YjAH MgtMrqPmB3h5B2Hu3SLT2 0TE30CN88wXKs b9L2mQN5I7RsBXVglzzpr rncoGY8DGJiWXEnoX55Xf 7gtUqwBq3oECUkYAD8IDI odETiL1ZoyA4o MdFvDIHdRKQwE7RyrJNuY LpgB987XOjjLyY8SSNdid GvT9DbBWPwfZwgBsM7y9G 2So5BGg44FT71 ZM51dVEfk8G2jIO5O7DjL KVuilzvwqscpEJ6XSGtKU ChmU59Ll5taCruAk5lBRW zKPW4NEHqkMXe O2AjoG0uOkQwEEYuRANeE 0FvzCJaTVcuV079IMtqLs H4OKSadvGzG3XgIAVxjQf kKoH1e6G8Je8S BSekxih6W0XfJzbfbJF+P N43LFVeUA93gIHyeRZam5 nheUe1DdRnAEGbZYQ8pNk aIGqrh9XtCIIj Y29s (more content not included)... Normal [facility] ED Note-Physicianon 07-28-19 ED Note-Physician Basic [...] My Ultrasound interpretation: [] Decision rules/scores evaluated: [place] ankle rule, cannot rule out based on [...] Mark Pitts In 3 days 07/30/[address] [place], [place] [id number] Business (1) Additional Instructions: Patient Education Elastic Bandage and RICE Therapy Ankle Sprain Attestation Patient seen and evaluated by the physician elementary assistant teacher. Attending physician was present in the emergency department and supervised care. This visit was performed by both the physician and an APC. I performed all aspects of the MDM as documented. This report was transcribed using voice recognition software. Every effort was made to ensure accuracy, however, inadvertently computerized securities sales associate mistakes may be present. Appropriate healthcare PPE [...] 1 tab(s (more content not included)... Normal [facility] Comment on above: Result Comment: Elec tronically Signed By: Juan Ott PA-C\.br\Date and Time Signed: 07/27/22 12:06 EST\.br\Electronically Co-Signed By: Saúl Gaspar MD\.br\Date and Time Co-Signed: 07/28/22 07:23 EST Consent for Treatmenton 07-10 Consent for Treatment [id number] .00CD:127 Normal [facility] Discharge Instructionson Discharge Instructions [id number] .00CD:127 Normal [facility] ED Clinical Summaryon 2022 ED Clinical Summary [place] [id number] ED Clinical Summary Person Information Name: RJ ELENA [facility] Age: 32 Years : 1990 Sex: Female Language: [place] PCP: Mark Pitts DO Marital Status: Single Phone: [phone] Visit Id: Visit Reason: Ankle pain-swelling; RIGHT [...] 07/27/2022 11:34:49 AD[address]ESS: [address] [facility] [id number] PHYS DOC NOTES: MEDICAL INFORMATION: Prescriptions Given: [...] Ankle Sprain Follow up: With: Address: When: [place] [phone] Business (9) In 3 days 07/30/2022 DIAGNOSIS: Ankle sprain Normal [facility] ED Patient Education Noteon 07-27-2022 ED [...] your activities and whether you should start yzuom-pk-lfqoim exercises for your injury. Ice Ice your [...] 12/16/2002 Document Revised: 03/16/2018 Document Reviewed: 03/16/2018 [employer] Patient Education ? 2020 [employer]. Ankle Sprain An ankle sprain is a [...] the cau (more content not included)... Normal [facility] ED Patient Summaryon 023 ED Patient Summary [place] [id number] Patient Discharge Instructions Person Information Name: RJ ELENA Age: 32 Years Arrival Date: 07/27/2022 10:09:44 Discharge Diagnosis: Ankle sprain Primary Care Physician: Mark Pitts DO Provider Information Primary Provider: [employer] Supervisor:Juan Ott PA-C The exam and treatment you received in the Emergency Department were for an urgent problem and are not intended as complete care. It is important that you follow up with a doctor, nurse practitioner, or physician?s elementary assistant teacher for ongoing care. If your symptoms become worse or you do not improve as expected and you are unable to reach your usual health care provider, you should return to the Emergency Department. We are available 24 hours a day. RJ ELENA has been given the following list of patient education materials, prescriptions and follow-up instructions: Follow-up Instructions: With: Address: When: Mark Pitts [address] [place], [place] [id number] Business (1) In 3 days 07/30/2022 In the event that this physician does not participate in your insurance network, please consult with your insurance company to find a nearby participating provider. Patient Education Materials: Elastic Bandage and RICE Therapy; Ankle Sprain A MESSAGE TO ALL PATIENTS REGARDING OPIOIDS PRESCRIPTION OPIOIDS: WHAT YOU NEED TO KNOW Prescription opioids can be used to help relieve iychmmgo-cn-edzeng pain and are often prescribed following a [...] struggling with addiction, tell your health care transition mgr and ask for guidance or call SAM[employer]SA?S National Helpline at 5-194-940-HELP. v Source: (more content not included)... [facility] Prescriptions/Work Noteson 0 07-27-2022 Prescriptions/Work Notes [id number] .00CD:127 [facility] XR Ankle 3+ Views Righton XR Ankle [...] V. Transcribed by: ESTEVAN Technologist: CHARLOTTE Márquez [facility] Coding Summary.on 04-18-2022 Coding Summary. CD:[id number] G h0bWw+PGhlYWQ+GL4JDRO xM88inHBedW3QC7kFOG7P DLVAVVTVTB4VWU8mbFJ0P UzbF6TjobCp MalkxZWqLK67UAj7XEX4p IsdKFjdvJ0ktSXtZ8r7Pz BmDT62sT06HVqkNUPrBeD 3LjZpbjsgbWFy M0rvRcRmdVOzSbx+PHRhY mxlIHdpZHRoPScxMDAlJy BweTpzPW7hUf1oCDPvXYZ vbGxhcHNlOiBj h4abIVYoTPtdTV3ndArdX 3DpzYA2BTVus2l7Bf28hM I+DAYtMGT0rHofUFzel48 0TmIec0afBVD0 tQXhCDulDQM2B75dk9J3E GPkDMVtGUV3nJW6aZ6kkX emprnsB7HjeLYiPzA2NFF 3aSFnhE5uaRei mhmddP7gEqw+V49GRM1XV BYYSO8GFqt0R4EkLduvaH I+IA15JFLlVM04tARudWW no2pihRe8GtZs OPZlGUQ6lSlnYPqfi5UlU ERfS58gmFYaf3A3ADQrvV cmnEClIzRvyNZ4mZ4fVCs vghalz6emhlza Ykzny8wrhr24lI55O79lL JokPDLuVUU8CVJrVADmkW agyo6zmN1nTz3+JXflz3l dh0cjcHe2JsDq EVBagiDgkUbdNLV1l0KfE d44R0QhyQmdk6BkFpg2rv 44zPKuy9I1sBH7KShyKYK poM2pUKeuCpH5 CKZeMpDabL18jBLfFPfbY l6opFytcAkdOY6mQYFhrv piCUOzaI1cNSRrcUStzNr cMM1dVNYtmncz y844WbWaBDC8TBJbhLQeX 4XyuT8fPgFfKUSsVDVrM1 VmfRWoPQxeM897UUccPzD 7LIPznvRqQ3Vx JHKjdJryWaC8y2T0Ef5Qy 3TmuvtcKEA3FUwvKMLuAi QiBbGaKkW1K1PiMzx9OGL xjRjnNX0hE8Fd ESQsrizihblijEJ6XDVfV HYokI08fREwWTjsOf6jd0 X4a411EZYpUCQwqC65Vv3 udDogMTBwdCBU dR9tyqdmb9vyqyfcAqHwT IEdNGc3BAo8LCLgyGmtKp HeITZ6FhO2ICL7pXEuqX4 jyXlysvhdbP0u Oyc+Y49zpI6lWTG8CMA3v dboNXQounOrIO32SF94O3 RyPjwvdGFibGU+PGRpdiB hsEzkWM3dRzYo w3ndu5JiTVpvI5QvWQSdD RquFlp9ABEwZYY4dVT9tP 4dRAGxORxfp5E6bQB4D9H qcgOpat9hz9qq BRGdTZasG19yeDDqf2T3E WVnfQM1CRXrbWliIdOmeT 93Oyc+HYFxoJcuy2ViInf ol8tto6steDy8 QuOyTTFaenKxyIjlALO0v 6PqVh71O71yWUufPMKrAY YvIIEkRFVyyXjcys0smV1 wIi8+PGNvbCB3 pOY1xV2eATHxZsO8SGpaG 519OpWwtMTcKpksz9btn2 jccUw7YxQoUATiumXrxRp bYNP2s9WtUd59 T53jFFbkHGCqCJMwFBYmR AIhtOdcfs9qqN5kXr2+PC 0mw5qeae39pN09mXM+PHR tZJC0bUdqAImn MIPepM1yPSjnWcQ2OGAyE rMdzR72tUMqJSxjIm3xjM tfmAobFZ9dKRSojqase47 7DpIad5frHNUz qLZyPFwdHQA7G66jx6M4A KKfAOMpVNK3hVY8yD4mbM lnbjogbGVmdDsgdmVydGl yZIwzCRupF400 IHRvcDsnPlBhdGllbnQgT nPiZZc4R1SpVzg8LBMwjW deFC5epQKlXSjdGy5xfQn bsYiiRO8oTZTs aqigp736RfKrg0jgDUJym JRqDJdeURM0P47xm9A7OG BmWDKeYKN3yFP5kF5llGo nbjogbGVmdDsg duKdtIqyBEmeAHbbL767T HRvcDsnPkJpcnRoIERhdG A7ID41MO29kTLoe8P6bIA 5I7EjURVrhyag hhkcwQW5SENzLFQugJ03V w0evDeiVe7vKAUiKGX8PK CtfZPgQ8LryS5nQbYsYDL jKLCvH6KgcLQx JFuiC267TAgdOzB6TJOpu hErA9RhNQWnuDdnBeS2a2 K8Jy0JX3X0QT43MW95nEM ld8G4oRR3O7Lm ERWavkakmanduSV3BWTqD YBwzI64Cb3tiUbrPo7cBY ToWQB8IAFjcHUdX3YxlY6 yOiAjMDAwMDAw B6MxrROgCLzlS447MGpcW aE6ZHBzuoNiX8IdBYAgrH chExK6k6Q8Yo4JGOw3IK0 8LO75wSVxk2D2 rOX6U9FlXWDsrjeeqlazq GT4RDKsWDVsyX83Sv9ltP kxUq3jDDIyWSW4THEbxTG tL3BxpA0tTuBc RPSdNKSbY5CeiYUaHCwqW 944MGuoXiE2GPKzprHvB2 KlTQImwFgaUjM6g8U7Kj1 BVLKlIB20VLR5 fKF9GF94YJ38S2LyCbwyx GFibGU+PHRhYmxlIHdpZH RoPScxMDAlJyBzdHlsZT0 wPl0lYPOePEEl zBafgBSuXfAnm3ltCGSnB ZhqUI6bbOitE7QmyJC7RM Biy9s8Rz46S64pL6RmaMY +UZBwuOV3uAZ6 mS3tNtOqBaV1LCjbH110C pLckCUxNiozn5ziu2wwyY a4OkZ1DHXessMehQdmCWW 1t0TeKb84E40g IHdpZHRoPSIxNSUiIHZhb Hdnia9wmE8cLh9+PGNvbC Q7pBE1rK5zJzLsFlT9QPi tA005TvJhmOVg Fouxy4zfo7izdIn1ChNaR RKfcbOazGhiHBP3c3UhTd 63F0YqwZral8EpBgq5oo1 2kYYqb4H2mDF1 N9FgOBDoppeqgNXabFdpY D8aGSVfpdmaXVZfvA8zQM NjS8u7VnInHiJ8QLooS9P qyoA3YFObsFEs TEnaFRE9O36ad1S9LKLqO RWeTKM8kRI1uC4jvRvnez ogbGVmdDsgdmVydGljYWw iTUnkB468OPUe gGmrKENqfK6hVIPxmJLqn JfkJF1xDHLevgklLsISYD HCXDimVKEHS2QQCZvVGPP gRzwvdGQ+PHRk LVZ1dVwhUBclNVDldK3dI QCqA9i2JwVwEzB0KJolC7 ZiDPHqpoxrFk97tZ7pRcI kDpL4NRhcE3Rv vtV7JZEaxROcJErmBAE3G 87be1Q3FIWqUYNbQSL8vB Z2tY3utArzimlprTWgfAp gdmVydGljYWwt FClnH390MOHxiXyvDiWcC kC2LhI8WIJ7H2WjUbd7AT RmaGcaQU2hnBBiBCemPi1 jwTwulGcyCZ8b MCBpgyedBIEwnW0hXFIjv AVgePtoIK7tUCQycdnwe1 31UrEaOJP8MGByeRExJ6P rmF7lPoVhXMEe YPMvB2XvcLDvECdgA293A LdiVpS8SLMkckOnR8SoOC NdcFppWpR7p7B9Yb3cFlF ZZWFyczwvdGQ+ JOOpHVT4aSnuYTvuPZBmo I2bMELfU8w8YtZbQwG9JK vhN8WoASBekannJz68hB8 aPhDkDrI8MYon U0IdctE8PNZybAEnXHqqK FJ1Y78kn9O4LAIcETSxKZ S7eZX0oC4kkXwpyywnjUF mdDsgdmVydGlj ARhgBMdqO447CDBrmDhiL kZlbWFsZTwvdGQ+PHRkIH K9zJlvGQgkPDOkpM5yNPZ mJ0v6TvSaSlD0 ITllE4QaECMtlxlkSc70b S8jZbAiRxT2NKnmC4Ozkc C2CBHztWNzHWymOBB2U44 oa9W5BKYdXOTz JNA5aQI8xE2onUthsprqq GVmdDsgdmVydGljYWwtYW mvV280HDAqgNfuJrPpRVC pHW1vrMsaxUR+ QF06nj14R3PzQkhrGdh1D DXqLTY4iMN1oD3oHCAkIE avl5B3rJV9K8AvdsXwbn7 qw4beZWGfBYlg L20rzVDra7G5DVTdcWK9M WKglSywDjVgsV02Lfk+PG OdgNrpq2JgUbrrf6pjq2l ixCs9AoEzAYPo xeQxhPgkISI0d6DeXm34L 29sIHdpZHRoPSIzMCUiIH JlvDutpn4ayI1wOx2+PGN ihIL9rCN2kP3w RgWoMsF4ODlfC780BaGry IMsQqvqt2xss5odqYo5Sw WlRTNkbpMwjMweYIE0a1R zZe96W1VpdTru u2QbIbe1wa20tMMnz7K1l ZZ0U5OqYWCfzsckwZXzvM pyIS0oLHWvunhxSNZhzN0 tVNHaQ5m0PvMq ZtC7LRdbZ4SshlU9RXJbb VTxEZArsELNeK1kxttpa6 wtoftwBzVkGXQsHLd4CPe 0LWFsaWduOiBs EMZ6JnX8ZRT5kNAqoG6dj NmpduzqlP0cDgt+UGh5c2 friZYaQJ4kjXX6IA03FZ1 6yMXmr4E7zVF5 N0UjGDClbxztmeknrKD4A XEkFYPsdL35Ch7dhEadSp 9uJLDqRPY0NPRaoPLnC2E isR3eUjRkHPGi ZCFeI6LzhVTzFEiaZ855P WelTbW9FDRuyeMaL5EfXX GfqYpuJfH3a4U0Jn4EQE2 2ZE06YN92dJNx k2A9aHV3V3ZxRQDftreua fcqbTV0XETlFZGnrL53Nk 5icXcnHu0aSIXfTGS9ULE hpAVqS5DehL0v PqRjTYAgMAKwK9PimUTeL VasG113VPelBuP7UXLxoh HaZ3AhLWPwdEosOaK5a1I 4Zw6OBz38MV87 FF38dDAad2O4mRD5P4GlA RDgzpnyqxpjeGQ7RWIfIY FivI99Qu5dzMhzDd0wOHM tFYB6ZXRzzKPi A1WzcH2cSyWrJUKcDRRpF 8XbiRRcPQgkE305VVykUn K4KSEiunNqG7NuIGCkhRy cQrM8d4K9Er2Y HJvrlhj2I8XvZyylcUD+P G54DYKfAI64sJPlhXNih0 cwuSf7WpWfRMApJSR1fZm wNUfsx3WxUMVe Y29s (more content not included)... [facility] Coding Summary. CD:[id number]:[id number] G h0bWw+PGhlYWQ+HB1NKGB sV69eeIFxyU1JC5sDPE6P LCFMAVRKWA2PMT8edCM9I PjjP5AhcjCd XnxunWQeCR17SNt6EGD5e GnkRNuwhG9axNQyY7q9Ar FcJT31jG54ITxgGVPrQdK 3LjZpbjsgbWFy R8lgObRvkZOyMzy+PHRhY mxlIHdpZHRoPScxMDAlJy BnwUdwNR7hPs2uOAOgERG vbGxhcHNlOiBj e7zmOBOwJLwrBU5yoLxqB 1BodZJ5ARTki3y4Pm27eL I+IETmSDH9sShcRYvth34 7YvPuw8seOSX0 fIMoOMpnNZQ2B51qk6D2U WFjFAHxSXE4gHA6bI4alS sdyisjA4JyvPCfSuX3UTM 9mPUehH5mmZrp epjclW2xHst+P03XXL2LL QAQDI4CJip1L4ZgOhjtcN I+AS42VHUdKK57rILmsOA ms6cdgSu0EuHw BRVnTGG5gMmaKQnon9NwV SAoY49esNKlj6X3BSKsyZ pfwSQcVsBklER2gC1sPSa wixwmp7rsldjp Cqlek8knrh68uV24Z91sC SdcELHxKSV6TJXqLNBoeF dlqe3qoA8yVd0+EEagj2w xl4ewhRy9GbPu WDSzwvYpbBqiCDB2l8WgX t94J3LuzLjbo8OrXbh9ta 25eIXkg2I0fCL6LAyyAKD fxH7sTGhbUoG4 DSNnXwTmeA32hKXrWHiiZ u1msRlloGrhJM3sADZhau soDJXffD7bZUPphSTqnEw zZW0dNMLefwbx m151JzKnSGI7WIGyjYEvR 8EnjT5tSoBrLXAiNDQkB3 TqeHTiPShgN335QBboTqN 3IYBkqiOmU6Op GPWjrNipWsO4q3O1Bk6Ih 3WxgvggDOH8FMglDKDiGr BbOuSxGtI0Q1FrWnx6PED kbWizHC3fJ9Ck XZXishamhfrcxCT8NGUgP KMspU08vJMmVGqgKf3um4 F1j257CCPuVCSbdH80Yw9 udDogMTBwdCBU qM8pgncja6lgqfqvQjPzK CQqCMm4HIs2CFBvqVbsUo NfXTI1ZrQ0NQG9zCWcpP4 fvWtmjgngnE3m Oyc+A98soO9zPDD8EZA2j ymmCSKehoDcGO46LU38C0 RyPjwvdGFibGU+PGRpdiB eoBrfVP4uTiUu o7aue1BiKLrlQ7UkWJRbT KnmDhd6MHJdQQY3oBR8qV 5jDVQgEGuqe2E9oVV5X5D eiiCtjg4yb9wl EBCmZUzyR52qlBJah5N5E AOzoYQ3PZAdtFhnEkQttV 93Oyc+RVUhcJcdl1EmMeh um5zvo0qxvKu7 SrJhAOJmqlAydItcHJH8e 2ZuUf55L55vKXkhIAIdZD XhQWDwLIIowNjuiz4tiL7 wIi8+PGNvbCB3 qYM6cC4dXZXwVrF6DMlpA 010LgQsiFChRjkkp7eyc1 ajxNy4CaNhZHAzxrXsuDz iRVM4k1RbKx64 L98lQFtvGUZzONQpIMFcO CCbzZajyh2zeR1eNy0+PC 5bs7fqqt21jY23sDX+PHR uATI4vDlzIMsu YKRqlF5jXFmiNlF1JHUdA bOqbE71sRTkNNjcWl4tyX zfqVenSQ4cEQMmvgfrs72 3WzVtp4ueUKNw jQKuHTsnNLR5O99wm5V4K LGzCRCcBQG2mSA5aP3bmL lnbjogbGVmdDsgdmVydGl iRKsrSNggD172 IHRvcDsnPlBhdGllbnQgT fMvICn5N6OcGre2AETgeG mfKA9jaUXrESoxOs9qtGb ieRhvSJ0vPSAq gwwxq863JvHbo1bwDGGyf OQsEPapHWH0K95cd1Y2MK WcXOLzFMP4hUA0tG2ogYa nbjogbGVmdDsg bdOjtKixATmaJMzzI366S HRvcDsnPkJpcnRoIERhdG U7MO05CW90dQUga1W6mUV 1S4OfJYGcdwxr kzodcNV7NCFnGAYpdA95K n3uuGltHz6bENMdBFK8PN RwcTEjS1MrxT8rTsZaAUE wKERrJ7GvxGWa QYnaK590WTmrRvQ8EKVrb lYcX2XuIIYfoMclDoL4v2 D2Yr0RH0C5GC67BH66xKM ey9Y6aUY0P6Ea CQLoczcyifbxtGX5TTMfB HZclN42Id6btHxiUe8zDW RrKOM0HPJpzESdJ5QxjU8 yOiAjMDAwMDAw G3OjrAHcTTknQ707LPppO pG0YFAasjJsG3ZzYAEdiF yrEcB8f8J1Pa1VBKg0XB3 4GO75yPVjc9U7 kNT2H0DrEROczqjvqtlcm WX7NBBiLZEoxY27Cz9avP kiWj4eCJFmFBX5KODyjRP dL5AozI5tKzKr CKEvJXNpD8HwyTFpYWvgD 296FRclUvS2LIFmjoYhH6 QvYJGdwQwsVlV7y0A2Yv6 VQZRaXU39BDC5 nRX6ML70UE20K1ZoXhjfj GFibGU+PHRhYmxlIHdpZH RoPScxMDAlJyBzdHlsZT0 yQe2yLYWkDUNb aPmmnNUnUiIoq7uyOELsU QffNU6yqJajN0JuhMZ0PR Vhi1p4Zu62V40lL2UjeYP +DIEveKZ5kMZ9 gR7yHeDwCvR2KTycQ438D iBqmHQjEoxbi3byk0pykI e9SiO3GKKdfcPagEogCSN 5i6HxKq36O99g IHdpZHRoPSIxNSUiIHZhb Zmxwz7swU6sMe4+PGNvbC K7gOY5oQ7rStKxNlF2OJy rP570PvFejUIk Aqkqv8pft6teeAi3YlWnW MTttqVvvAvrLJP3q1EhXg 38F9MfcMlhe7HkStd3tl4 7aJLll6R4wSL7 M8JlNQYzswdnnFOimCggP W5oCSTzejluCUBhqV9kMY JxL3s9YjQfIbD2RZlrL8M tnsL6NCChgYTm SHnrMOE9V62ov7D2KGToK YErIEN9dNZ9mU0qnGudzq ogbGVmdDsgdmVydGljYWw pTMafL587HTZp zClsFFTiwU0nNIVmwOKpb MlgTG5pVXBrqwbmTiQQVZ OXGRfbIAEED1FCWHlBGID gRzwvdGQ+PHRk OBC9qUqrVZhjGLLliY2rM BXeC9c0EwPnUfH7KIriA5 EtWCKatbioDx42gV6eKkG qRnM1VPamT9Zq cdG9ZOUeiIQkFRopBHF5K 36ym6Z9CJVyQWPtTRF0gO P8cF4jtQlfqnbmkOLgtKq gdmVydGljYWwt PVpzX191XOZpiZxlMfMeH tP9KkB8ZJA6P1PeUtx7CN AgiZnbYE4ktURiXSdtOa1 zmZualNpjHE7d QWPllfxnTBJmsU1tNIYsv FEzvQifVR4rJNSrlhbsu6 42MiLfTEP0ZTAkyKOoE0S egR2wXeLhRCXb ROGjL8AioRLpYFjuD959Z YspKeE8EICdrfPfS0ScOI QhdPliKaD7f1V5Tb2vBfY ZZWFyczwvdGQ+ KLVtQQQ5dAijVQddLVPiz D2xNTBhS9w4OpHoWdG1OC hoR1UiIDGvdnluSb51aG3 kBiJhRdN7UFbp W2QhcbC7MLVlrVYiRZtjH DI4Y16cp6I0CRIcTYTmZI U2wPA3vI9bfLtjznuiqEN mdDsgdmVydGlj BNspNTjdD448UJKzqKiqB kZlbWFsZTwvdGQ+PHRkIH Z1uXmhJPjcJVFdrO2eFOU nI6p1QlWgLcP4 WElcS5VrTKYrjcmiNn57o Z8kEaUiHzI6SBycW5Wtve Q8SATelTBfDEbmKZU1X17 sh8N6KGEkHHUs HPD9lRJ3dE7doFruotlay GVmdDsgdmVydGljYWwtYW doR933GPGqfVyzEeDxXEC mEP9drRsqoUS+ AQ28ow12F1HmKxcbRca5Q AYcPDO7hEE7jV1oHOOuZF dhx9C6gIA3G3SuhnRypt9 up8yyJFLiCJel E71ekXCvl3C8DEPcmEO5V URbdPlyHnCerA89Tss+PG GoxBhew2HqPfqln1slg0i eoNl7YaTeXFPk utBwdWanKYM2x4IqUb85R 29sIHdpZHRoPSIzMCUiIH EdjRlzbc4yhC3qAm4+PGN vaIP4oJP6fM3s MlTuLrL0THkkN768HeJtb MFyHzjke4war6vwwUq5Ia FqHOYqzfNcoXwhENV9y1J gLn12O2ZtxPhp f6EeCnw0tb81iUOea4Q0t CV3Y1LjYNGxfdhggVFxuJ cbLW5oVDPxpyuaNSOtwE0 kIOKrY3a8HeFc EtP3DEcwK8BffuH9XNNpt MUwEKPxxHYFrA9jqgoko6 oaihbpUmLzPYOwTCd9MPf 0LWFsaWduOiBs XSK5CpI7LBI8lICwbX8wg UgdckeapI1cFjf+UGh5c2 jwqRKvZZ1esEF0GP94KI3 2fTQaf8Z7cPZ1 K1HoHMKgwjzjghorkXR7M TYaJZAtiJ66Wo3chSgoWj 0nTZRiYIB0YHCfvLXjR4L gmE3lFvHwGFRj MFIkS9VepXTlOTmjV432V JagQlP6KXDgybJkJ9LmRF DjmXfqGiD8a0X1Th8INY8 0DR36WF58hRIj z8L5aCC8T4PyTLGsebfvm lkyfXX6TJApLALorH01Ya 3kwCtlEf8tUISqJGE4HTW shYEkQ7ScoL5z QrLjSEQyUISwQ3SxiGXrL ZajS795PXpkKrA3SDIzdd XiE5SzYMCceSfbTzM1j5M 5El7MIz27RG07 RJ49tEFpo7U1yNX1Q5YpE MJkhaistiilaXZ0NVOpPT HwsQ05Yl0wqYdbJu0zPQU xAYU2SRZljGQx V0AmkP0mYnEwMBOmUXVcS 6SvbKTaPPyqE421YDnmNh B2OZAnhgQvT1PbMRUpcOl zMrF5u2H5Op8D ZPehkfd4X6QuNxatgKC+P R37SAYkPK72aVGuxJKvq8 wlyWe6GsZqWWOzBBO7jCk gEFzzb6IwSVUm Y29s (more content not included)... [facility] ED Note-Physicianon 04-16-20 ED Note-Physician Basic Information Time Seen: Robinson Galvan PA-C 04/14/2022 14:53 Chief Complaint pt c/o allergic reaction to possibly motrin. pt was having swelling and redness in the face and tongue. ppt c/o sob. 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 History of Present Illness 31-year-old female [...] Daily Follow-up With When Contact Information Mark Ingram In 3 days 04/17/2022 EDT [address] Business (1) Additional Instructions: Patient Education Anaphylactic Reaction, Adult Attestation Patient seen (more content not included)... [facility] Comment on above: Result Comment: Elec tronically Signed By: Robinson Galvan PA-C\.br\Date and Time Signed: 04/14/22 18:33 EDT\.br\Electronically Co-Signed By: Saúl Gaspar MD\.br\Date and Time Co-Signed: 04/15/22 23:22 EDT Consent for Treatmenton Consent for Treatment [id number] .[id number]:127 [facility] Discharge Instructionson Discharge Instructions [id number]# 1.00CD:127 [facility] ED Clinical Summaryon 2021 ED Clinical Summary [place] [id number] ED Clinical Summary Person Information Name: RJ ELENA Calista/[facility] Age: 31 Years : 1990 Sex: Female Language: [place] PCP: Mark Pitts DO Marital Status: Single Phone: [phone] Visit Id: Visit Reason: Allergic reaction - [...] 04/14/2022 19:42:49 04/14/2022 19:42:49 04/14/2022 19:42:49 ADDRESS: [address] [place] [id number] PHYS DOC NOTES: MEDICAL INFORMATION: Prescriptions Given: New Medications [facility], [address] [place], [place] [id number], [phone] epinephrine (EpiPen 2-Ze 0.3 mg injectable kit) 1 Each Intramuscular As Directed. May substitute for another brand if required by insurance or inventory. Refills: 0. famotidine (Pepcid 40 mg Tab) 1 Tablets By Mouth once a day (at bedtime) for 7 Days. Refills: 0. Medications to Continue Taking That Have Changed [facility] 1986, [address] [place], [place] [id number], [phone] START: predniSONE (predniSONE 20 mg Tab) 3 [...] Reaction, Adult Follow up: With: Address: When: [address] [address] Business (1) In 3 days 04/17/2022 DIAGNOSIS: 1:Anaphylaxis Normal [facility] ED Patient Education Noteon 04-14-2022 ED [...] Symptoms of anaphylaxis may include: ? 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 This may include redness. [...] have hives or rash: ? Use an urvv-mgs-cmnpygt antihistamine as told by your health care provider. ? Apply cold, wet cloths (cold compresses) to your skin or take baths or showers in cool water. Avoid hot water. ? Take yzdt-ags-ykwtkgo and prescription medicines only as told by your health care provider. ? Tell all your health care providers that you have an allergy. ? Keep all follow-up visits as told by your health care provider. This is important. How is this prevented? ? Avoid allergens that have caused an anaphylactic reaction in the past. ? When you are at a restaurant, tell your bistro server that you have an allergy. If you are not sure whether a menu item contains an ingredient that you are allergic to, ask your bistro server. Where to find more information ? [place] [employer]: aaaai.org ? [place] [employer]: healthychildren.org Get help right [...] medicine s (more content not included)... Normal [facility] ED Patient Summaryon 022 ED Patient Summary [place] [id number] Patient Discharge Instructions Person Information Name: RJ ELENA Age: 31 Years Arrival Date: 04/14/2022 14:45:02 Discharge Diagnosis: 1:Anaphylaxis Primary Care Physician: Mark Pitts DO Provider Information Primary Provider: Saúl Gaspar MD [employer] Supervisor:Robinson Galvan PA-C The exam and treatment you received in the Emergency Department were for an urgent problem and are not intended as complete care. It is important that you follow up with a doctor, nurse practitioner, or physician?s elementary assistant teacher for ongoing care. If your symptoms become worse or you do not improve as expected and you are unable to reach your usual health care provider, you should return to the Emergency Department. We are available 24 hours a day. RJ ELENA has been given the following list of patient education materials, prescriptions and follow-up instructions: Follow-up Instructions: With: Address: When: Mark Pitts [address] [place] [address] [facility] () In 3 days 04/17/2022 In the event that this physician does not participate in your insurance network, please consult with your insurance company to find a nearby participating provider. Patient Education Materials: Anaphylactic Reaction, Adult A MESSAGE TO ALL PATIENTS REGARDING OPIOIDS PRESCRIPTION OPIOIDS: WHAT YOU NEED TO KNOW Prescription opioids can be used to help relieve bbrlqpiz-yx-cwjnuo pain and are often prescribed following a [...] struggling with addiction, tell your health care transition mgr and ask for guidance or call SAMHSA?S National Helpline at 3-906-993-HELP. v Source (more content not included)... Normal [facility] Covid-19 PCR (CVDTBH)on SARS-CoV-2 (COVID-19) RNA YARELY+probe Ql (Unsp spec) Detected Critically abnormal NOT DETECTED [facility] Comment on above: Result Comment: This test is not yet approved or cleared by the [place] FDA. When there are no FDA-approved or cleared tests available, and other criteria are met, FDA can make tests available under an emergency access mechanism called an Emergency Use Authorization (EUA). The EUA for this test is supported by the [place] of Health and Human Service's (HHS's) declaration [...] used). Performed By: #### C VDTB #### [facility] [address] [place] [address] Dr. Tj Wild CBC AUTO DIFFon 07-05-2021 BASO # 0.0 103/ul Normal 0.0-0.1 [facility] Comment on above: Performed By: #### C BC #### [facility] [address] [place] [address] Dr. Tj Wild Basophils/100 WBC (Bld) 0.1 % Critically low 0.2-2.0 [facility] Comment on above: Performed By: #### C BC #### [facility] [address] [place] [address] Dr. Tj Wild EO # 0.0 103/ul Normal 0.0-0.7 [facility] Comment on above: Performed By: #### C BC #### [facility] [address] [place] [address] Dr. Tj Wild Eosinophils/100 WBC (Bld) 0.0 % Critically low 0.9-7.0 [facility] Comment on above: Performed By: #### C BC #### [facility] [address] [place] [address] Dr. Tj Wild Erythrocyte distribution width (RBC) [Ratio] 17.2 % Critically high 11.0-15.0 [facility] Comment on above: Performed By: #### C BC #### [facility] [address] [place] [address] Dr. Tj Wild Hematocrit (Bld) [Volume fraction] 36.3 % Normal 36.0-48.0 [facility] Comment on above: Performed By: #### C BC #### [facility] [address] [place] [address] Dr. Tj Wild Hemoglobin (Bld) [Mass/Vol] 12.3 g/dL Normal 12.0-16.0 [facility] Comment on above: Performed By: #### C BC #### [facility] [address] [place] [address] Dr. Tj Wild IG # 0.08 10e3/ul Critically high 0.00-0.03 [facility] Comment on above: Performed By: #### C BC #### [facility] [address] [place] [address] Dr. Tj Wild IG % 0.5 % Normal 0.0-0.5 [facility] Comment on above: Performed By: #### C BC #### [facility] [address] [place] [address] Dr. Tj Wild LYMPH # 2.2 103/ul Normal 1.2-3.8 [facility] Comment on above: Performed By: #### C BC #### [facility] [address] [place] [address] Dr. Tj Wild Lymphocytes/100 WBC (Bld) 13.8 % Critically low 20.5-60.0 [facility] Comment on above: Performed By: #### C BC #### [facility] [address] [place] [address] Dr. Tj Wild MANUAL DIFF REQ NO Normal [facility] Comment on above: Performed By: #### C BC #### [facility] [address] [place] [address] Dr. Tj Wild MCH (RBC) [Entitic mass] 26.6 pg Critically low 26.7-34.0 [facility] Comment on above: Performed By: #### C BC #### [facility] [address] [place] [address] [address] Tj Wild MCHC (RBC) [Mass/Vol] 33.9 g/dL Normal 29.9-35.2 [facility] Comment on above: Performed By: #### C BC #### [facility] [address] [place] [address] [address] Tj Wild MCV (RBC) [Entitic vol] 78.4 fL Critically low 81.0-99.0 [facility] Comment on above: Performed By: #### C BC #### [facility] [address] [place] [address] [address] Tj Wild MONO # 0.7 103/ul Normal 0.3-0.8 [facility] Comment on above: Performed By: #### C BC #### [facility] [address] [place] [address] [address] Tj Wild Monocytes/100 WBC (Bld) 4.6 % Normal 1.7-12.0 [facility] Comment on above: Performed By: #### C BC #### [facility] [address] [place] [address] [address] Tj Wild NEUT # 12.9 103/ul Critically high 1.4-6.5 [facility] Comment on above: Performed By: #### C BC #### [facility] [address] [place] [address] [address] Tj Wild Neutrophils/100 WBC (Bld) 81.0 % Critically high 43.0-75.0 [facility] Comment on above: Performed By: #### C BC #### [facility] [address] [place] [address] [address] Tj Wild Platelet mean volume (Bld) [Entitic vol] 10.3 fL Normal 9.5-13.5 [facility] Comment on above: Performed By: #### C BC #### [facility] [address] [place] [address] [address] Tj Wild PLT 254 103/ul Normal 150-450 [facility] Comment on above: Performed By: #### C BC #### [facility] [address] [place] [address] Dr. Tj Wild RBC 4.63 106/ul Normal 4.20-5.40 [facility] Comment on above: Performed By: #### C BC #### [facility] [address] [place] [address] Dr. Tj Wild WBC 16.0 103/ul Critically high 4.0-11.0 [facility] Comment on above: Performed By: #### C BC #### [facility] [address] [place] [address] Dr. Tj Wild Covid-19 PCR (CVDTBH)on 06-10 SARS-CoV-2 (COVID-19) RNA YARELY+probe Ql (Unsp spec) Not detected Normal NOT DETECTED [facility] Comment on above: Result Comment: When [...] for this test is supported by the [employer] of Health and Human Service's declaration [...] used). Performed By: #### C VDTBH #### [facility] [address] [place] [address] Dr. Tj Wild D-DIMERon 07-05-2021 D-DIMER 6.07 mg/L FEU Critically high 0.19-0.50 [facility] Comment on above: Performed By: #### D DIM #### [facility] [address] [place] [address] Dr. Tj Wild D-DIMER COMMENTS SEE BELOW Normal [facility] Comment on above: Result Comment: Incr [...] hospitalization. Performed By: #### D DIM #### [facility] [address] [place] [address] Dr. Tj Wild PREG HCG QUALon 07-05-2021 , QUAL Negative Normal NEGATIVE [facility] Comment on above: Performed By: #### P REG #### [facility] [address] [place] [address] Dr. Tj Wild PROF 14(COMP METB)on 021 Albumin [Mass/Vol] 3.5 g/dL Normal 3.5-5.0 [facility] Comment on above: Performed By: #### H STROPN, CMP #### [facility] [address] [place] [address] Dr. Tj Wild Albumin/Globulin [Mass ratio] 1.1 {ratio} Normal [facility] Comment on above: Performed By: #### H STROPN, CMP #### [facility] [address] [place] [address] Dr. Tj Wild ALP [Catalytic activity/Vol] 56 U/L Normal 38-126 [facility] Comment on above: Performed By: #### H STROPN, CMP #### [facility] [address] [place] [address] Dr. Tj Wild ALT [Catalytic activity/Vol] 21 U/L Normal 9-52 [facility] Comment on above: Performed By: #### H STROPN, CMP #### [facility] [address] [place] [address] Dr. Tj Wild Anion gap [Moles/Vol] 14.4 mmol/L Normal [facility] Comment on above: Performed By: #### H STROPN, CMP #### [facility] [address] [place] [address] [address] Tj Wild AST [Catalytic activity/Vol] 27 U/L Normal 14-36 [facility] Comment on above: Performed By: #### H STROPN, CMP #### [facility] [address] [place] [address] [address] Tj Wild Bilirubin [Mass/Vol] 0.5 mg/dL Normal 0.2-1.3 [facility] Comment on above: Performed By: #### H STROPN, CMP #### [facility] [address] [place] [address] [address] Tj Wild Calcium [Mass/Vol] 8.7 mg/dL Normal 8.4-10.2 [facility] Comment on above: Performed By: #### H STROPN, CMP #### [facility] [address] [place] [address] Dr. Tj Wild Chloride [Moles/Vol] 101 mmol/L Normal 98-107 [facility] Comment on above: Performed By: #### H STROPN, CMP #### [facility] [address] [place] [address] Dr. Tj Wild CO2 [Moles/Vol] 26.3 mmol/L Normal 22.0-30.0 [facility] Comment on above: Performed By: #### H STROPN, CMP #### [facility] [address] [place] [address] Dr. Tj Wild Creatinine [Mass/Vol] 0.89 mg/dL Normal 0.52-1.04 [facility] Comment on above: Performed By: #### H STROPN, CMP #### [facility] [address] [place] [address] Dr. Tj Wild EGFR-AF BRAZILIAN >60 Normal >=[address] [facility] Comment on above: Performed By: #### H STROPN, CMP #### [facility] [address] [place] [address] Dr. Tj Wild EGFR-NON AF BRAZILIAN >60 Normal >=60 [facility] Comment on above: Performed By: #### H STROPN, CMP #### [facility] [address] [place] [address] [address] Tj Wild Globulin (S) [Mass/Vol] 3.3 g/dL Normal [facility] Comment on above: Performed By: #### H STROPN, CMP #### [facility] [address] [place] [address] [address] Tj Wild Glucose [Mass/Vol] 116 mg/dL Critically high 74-106 [facility] Comment on above: Performed By: #### H STROPN, CMP #### [facility] [address] [place] [address] Dr. jT Wild Potassium [Moles/Vol] 3.7 mmol/L Normal 3.4-5.0 [facility] Comment on above: Performed By: #### H STROPN, CMP #### [facility] [address] [place] [address] Dr. Tj Wild Protein [Mass/Vol] 6.8 g/dL Normal 6.1-8.2 [facility] Comment on above: Performed By: #### H STROPN, CMP #### [facility] [address] [place] [address] Dr. Tj Wild Sodium [Moles/Vol] 138 mmol/L Normal 137-145 [facility] Comment on above: Performed By: #### H STROPN, CMP #### [facility] [address] [place] [address] Dr. Tj Wild Urea nitrogen [Mass/Vol] 20.0 mg/dL Critically high 7.0-17.0 [facility] Comment on above: Performed By: #### H STROPN, CMP #### [facility] [address] [place] [address] Dr. Tj Wild Urea nitrogen/Creatinine [Mass ratio] 22.5 mg/mg Normal [facility] Comment on above: Performed By: #### H STROPN, CMP #### [facility] [address] [place] [address] Dr. Tj Wild TROPONIN, HIGH SENSITIVITYon 12-27-2021 HSTROP 10.4 pg/mL Normal 4.0-35.5 [facility] Comment on above: Result Comment: CUT- OFF POINTS HAVE BEEN ESTABLISHED BASED ON THE FOURTH UNIVERSAL DEFINITIONS OF MYOCARDIAL INFARCTION. THE UPPER REFERENCE LIMIT (URL) OF TROPONIN, DEFINED THE 99TH PERCENTILE OF cTnI DISTRIBUTION IN A REFERENCE POPULATION, HAS BEEN CONFIRMED THE DECISION THRESHOLD FOR [place] DIAGNOSIS. Performed By: #### H STROPN, CMP #### [facility] [address] [place] [address] [address] Tj Wild XR CHEST 1 Von [...] by: Cassius MCKEON Date: 2021-07-05 20:35 Normal [facility] Vital Signs Date Time Vital Sign Value Performing Clinician Facility 08-21-2023 11:12-0500 Body mass index (BMI) [Ratio] 32.95 kg/m2 Bhumika COKER Work Phone: [facility] 08-21-2023 11:12-0500 Body weight 84.37 kg Bhumika COKER Work Phone: [facility] 08-21-2023 11:12-0500 Diastolic blood pressure 60 mm[Hg] Bhumika COKER Work Phone: [facility] 08-21-2023 11:12-0500 Systolic blood pressure 110 mm[Hg] Bhumika COKER Work Phone: [facility] 02-26-2023 15:56-0400 Body temperature 98.78 [degF] Charlie Rubalcava [facility] 02-26-2023 15:56-0400 Diastolic blood pressure 76 mm[Hg] Charlie Rubalcava [facility] 02-26-2023 15:56-0400 Heart rate 107 /min Charlie Rubalcava [facility] 02-26-2023 15:56-0400 Respiratory rate 16 /min Charlie Rubalcava [facility] 02-26-2023 15:56-0400 SaO2% (BldA) [Mass fraction] 98 % Charlie Rubalcava [facility] 02-26-2023 15:56-0400 Systolic blood pressure 115 mm[Hg] Charlie Rubalcava [facility] 12-31-2022 10:16-0400 Body temperature 98.24 [degF] Javier Woods [facility] 12-31-2022 10:16-0400 Diastolic blood pressure 82 mm[Hg] Javier Reynae [facility] 12-31-2022 10:16-0400 Heart rate 90 /min Javier Reynae [facility] 12-31-2022 10:16-0400 Respiratory rate 18 /min Javier Woods [facility] 12-31-2022 10:16-0400 SaO2% (BldA) [Mass fraction] 99 % Javier Reynae [facility] 12-31-2022 10:16-0400 Systolic blood pressure 129 mm[Hg] Javier Peggy [facility] 12-30-2022 13:13-0400 Body temperature 98.06 [degF] Javier Peggy [facility] 12-30-2022 13:13-0400 Diastolic blood pressure 75 mm[Hg] Javier Peggy [facility] 12-30-2022 13:13-0400 Heart rate 88 /min Javier Peggy [facility] 12-30-2022 13:13-0400 Respiratory rate 16 /min Javier Woods [facility] 12-30-2022 13:13-0400 SaO2% (BldA) [Mass fraction] 96 % Javier Woods [facility] 12-30-2022 13:13-0400 Systolic blood pressure 125 mm[Hg] Javier Woods [facility] 12-21-2022 13:35-0400 Body temperature 98.24 [degF] Charlie Rubalcava [facility] 12-21-2022 13:35-0400 Diastolic blood pressure 77 mm[Hg] Charlie Rubalcava [facility] 12-21-2022 13:35-0400 Heart rate 93 /min Charlie Khadar [facility] 12-21-2022 13:35-0400 Respiratory rate 18 /min Charlie Rubalcava [facility] 12-21-2022 13:35-0400 SaO2% (BldA) [Mass fraction] 99 % Charlie Rubalcava [facility] 12-21-2022 13:35-0400 Systolic blood pressure 128 mm[Hg] Charlie Khadar [facility] 09-05-2022 22:53-0500 Diastolic blood pressure 63 mm[Hg] Kaylinn Dokken [facility] 09-05-2022 22:53-0500 Heart rate 93 /min Kaylinn Dokken [facility] 09-05-2022 22:53-0500 Mean blood pressure 80 mm[Hg] Kaylinn Dokken [facility] 09-05-2022 22:53-0500 Respiratory rate 20 /min Kaylinn Dokken [facility] 09-05-2022 22:53-0500 SaO2% (BldA) [Mass fraction] 95 % Kaylinn Dokken [facility] 09-05-2022 22:53-0500 Systolic blood pressure 114 mm[Hg] Kaylinn Dokken [facility] 09-05-2022 21:45-0500 Diastolic blood pressure 60 mm[Hg] Kaylinn Dokken [facility] 09-05-2022 21:45-0500 Heart rate 97 /min Kaylinn Dokken [facility] 09-05-2022 21:45-0500 Mean blood pressure 80 mm[Hg] Kaylinn Dokken [facility] 09-05-2022 21:45-0500 Respiratory rate 16 /min Kaylinn Dokken [facility] 09-05-2022 21:45-0500 SaO2% (BldA) [Mass fraction] 93 % Kaylinn Dokken [facility] 09-05-2022 21:45-0500 Systolic blood pressure 119 mm[Hg] Kaylinn Dokken [facility] 09-05-2022 21:03-0500 Body temperature 97.52 [degF] Kaylinn Dokken [facility] 09-05-2022 21:03-0500 Diastolic blood pressure 56 mm[Hg] Kaylinn Dokken [facility] 09-05-2022 21:03-0500 Heart rate 115 /min Quita Clark [facility] 09-05-2022 21:03-0500 Respiratory rate 32 /min Perlan Gretaen [facility] 09-05-2022 21:03-0500 SaO2% (BldA) [Mass fraction] 95 % Quita Hernandesen [facility] 09-05-2022 21:03-0500 Systolic blood pressure 123 mm[Hg] Quita Hernandesen [facility] 04-14-2022 19:00-0400 Diastolic blood pressure 70 mm[Hg] Saúl Hubert [facility] 04-14-2022 19:00-0400 Heart rate 91 /min Saúl Hubert [facility] 04-14-2022 19:00-0400 Mean blood pressure 83 mm[Hg] Saúl Hubert [facility] 04-14-2022 19:00-0400 Respiratory rate 14 /min Saúl Hubert [facility] 04-14-2022 19:00-0400 SaO2% (BldA) [Mass fraction] 96 % Saúl Hubert [facility] 04-14-2022 19:00-0400 Systolic blood pressure 110 mm[Hg] Saúl Hubert [facility] 04-14-2022 18:22-0400 Diastolic blood pressure 64 mm[Hg] Saúl Hubert [facility] 04-14-2022 18:22-0400 Heart rate 87 /min Saúl Hubert [facility] 04-14-2022 18:22-0400 Mean blood pressure 76 mm[Hg] Saúl Hubert [facility] 04-14-2022 18:22-0400 Respiratory rate 20 /min Saúl Hubert [facility] 04-14-2022 18:22-0400 SaO2% (BldA) [Mass fraction] 95 % Saúl Hubert [facility] 04-14-2022 18:22-0400 Systolic blood pressure 100 mm[Hg] Saúl Hubert [facility] 04-14-2022 17:00-0400 Diastolic blood pressure 61 mm[Hg] Saúl Hubert [facility] 04-14-2022 17:00-0400 Respiratory rate 19 /min Saúl Hubert [facility] 04-14-2022 17:00-0400 SaO2% (BldA) [Mass fraction] 93 % Saúl Hubert [facility] 04-14-2022 17:00-0400 Systolic blood pressure 105 mm[Hg] Saúl Hubert [facility] 04-14-2022 15:35-0400 Heart rate 92 /min Saúl Hubert [facility] 04-14-2022 15:35-0400 Respiratory rate 16 /min Saúl Hubert [facility] 04-14-2022 14:48-0400 Body temperature 98.06 [degF] Saúl Hubert [facility] 04-14-2022 14:48-0400 Heart rate 113 /min Saúl Hubert [facility] 04-14-2022 14:48-0400 Respiratory rate 18 /min Saúl Hubert [facility] 11-19-2021 19:00-0400 Hourly Rounding Javier Peggy [facility] 11-19-2021 19:00-0400 Promise to Return Javier Reynae [facility] 11-19-2021 18:45-0400 Diastolic blood pressure 64 mm[Hg] Javier Peggy [facility] 11-19-2021 18:45-0400 Heart rate 85 /min Javier Peggy [facility] 11-19-2021 18:45-0400 Mean blood pressure 76 mm[Hg] Javier Peggy [facility] 11-19-2021 18:45-0400 Respiratory rate 16 /min Javier Peggy [facility] 11-19-2021 18:45-0400 SaO2% (BldA) [Mass fraction] 98 % Javier Peggy [facility] 11-19-2021 18:45-0400 Systolic blood pressure 100 mm[Hg] Javier Peggy [facility] 11-19-2021 18:15-0400 Diastolic blood pressure 70 mm[Hg] Javier Peggy [facility] 11-19-2021 18:15-0400 Heart rate 84 /min Javier Peggy [facility] 11-19-2021 18:15-0400 Mean blood pressure 85 mm[Hg] Javier Peggy [facility] 11-19-2021 18:15-0400 Respiratory rate 16 /min Javier Peggy [facility] 11-19-2021 18:15-0400 SaO2% (BldA) [Mass fraction] 96 % Javier Peggy [facility] 11-19-2021 18:15-0400 Systolic blood pressure 114 mm[Hg] Javier Woods [facility] 11-19-2021 17:45-0400 Diastolic blood pressure 71 mm[Hg] Javier Woods [facility] 11-19-2021 17:45-0400 Heart rate 86 /min Javier Woods [facility] 11-19-2021 17:45-0400 Mean blood pressure 81 mm[Hg] Javier Woods [facility] 11-19-2021 17:45-0400 Respiratory rate 16 /min Javier Woods [facility] 11-19-2021 17:45-0400 SaO2% (BldA) [Mass fraction] 97 % Javier Woods [facility] 11-19-2021 17:45-0400 Systolic blood pressure 102 mm[Hg] Javier Woods [facility] 11-19-2021 15:45-0400 Blood Pressure Location Javier Woods [facility] 11-19-2021 15:22-0400 Body temperature 98.24 [degF] Javier Woods [facility] 11-19-2021 15:22-0400 Heart rate 111 /min Javier Woods [facility] Encounters Encounter Date Encounter Type Care Provider Facility Start: 10-24-2023 End: 10-24-2023 ambulatory BRODERICK BONITA Not Available Start: 10-17-2023 End: 10-17-2023 ambulatory BHUMIKA MO Not Available Start: 10-10-2023 End: 10-10-2023 ambulatory BRODERICK BONITA Not Available Start: 10-03-2023 End: 10-03-2023 ambulatory BRODERICK BONITA Not Available Start: 09-19-2023 End: 09-19-2023 ambulatory BHUMIKA MO Not Available Start: 09-04-2023 End: 09-04-2023 ambulatory BRODERICK BONITA Not Available Start: 08-22-2023 Clinisync Result Encounter Bhumika Mo JOHN PAUL Work Phone: [facility] Unsolicited Start: 08-22-2023 Clinisync Result Encounter Bhumika Mo JOHN PAUL Work Phone: [facility] Unsolicited Start: 08-21-2023 End: 08-21-2023 ambulatory BHUMIKA MO Not Available Start: 08-21-2023 End: 08-21-2023 Office outpatient visit 15 minutes Bhumika Mo JOHN PAUL Work Phone: [facility] Comment on above: Third trimester preg baltazar; Diabetes mellitus screening; BV (bacterial vaginosis); Nausea Start: 07-20-2023 End: 07-20-2023 ambulatory BRODERICK BONITA Not Available Start: 06-15-2023 End: 06-15-2023 ambulatory BHUMIKA MO Not Available Start: 02-26-2023 End: 02-26-2023 Emergency department patient visit Charlie Rubalcava Facility[place] Start: 02-26-2023 End: 02-26-2023 Emergency department patient visit Charlie Rubalcava [facility] Start: 01-30-2023 End: 01-31-[facility] Start: 12-31-2022 End: 12-31-2022 Emergency department patient visit Javier Woods Facility:[facility] Start: 12-31-2022 End: 12-31-2022 Emergency department patient visit Javier Woods [facility] Start: 12-30-2022 End: 12-30-2022 Emergency department patient visit Javier Woods Facility:[facility] Start: 12-30-2022 End: 12-30-2022 Emergency department patient visit Javier Woods [facility] Start: 12-26-2022 End: 12-27-2022 ambulatory John DUPREE Facility:[facility] Start: 12-21-2022 End: 12-21-2022 Emergency department patient visit Charlie Rubalcava Facility:[facility] Start: 12-21-2022 End: 12-21-2022 Emergency department patient visit Charlie Rubalcava [facility] Start: 12-15-2022 End: 12-16-2022 ambulatory John DUPREE Facility:[facility] Start: 09-05-2022 End: 09-06-2022 Emergency department patient visit Quita Clark Facility:[facility] Start: 09-05-2022 End: 09-05-2022 Emergency department patient visit Quita Clark [facility] Start: 09-04-2022 End: 09-04-2022 Emergency department patient visit Dandrerenu Sheldon Lamin Facility:[facility] Start: 07-27-2022 End: 07-27-2022 Emergency department patient visit Saúl Gaspar Facility:[facility] Start: 04-14-2022 End: 04-14-2022 Emergency department patient visit Saúl Gaspar Facility:[facility] Start: 04-14-2022 End: 04-14-2022 Emergency department patient visit Saúl Gaspar [facility] Start: 01-13-2022 End: 01-13-[address] HOLLIE RUBI Facility: Start: 11-19-2021 End: 11-19-2021 Emergency department patient visit Javier Woods [facility] Start: 07-05-2021 End: 07-06-2021 ambulatory PHILLIP [...] AM EST Routine [facility] [address] [address] Broderikc Nickerson, DO [address] [place] [address] [facility] Start: 08-21-2023 End: 08-21-2024 CBC panel - Blood by Automated count CBC Lab Routine Diabetes mellitus screening Expected: 08/21/2023 (Approximate), Expires: 08/21/2024 [facility] Work Phone: Comment on above: Expected: 08/21/2023 (Approximate), Expires: 08/21/2024 Start: 08-21-2023 End: 08-21-2024 Measurement of glucose 1 hour after glucose challenge for glucose tolerance test Glucose tolerance, 1 hour Lab Routine Diabetes mellitus screening Expected: 08/21/2023 (Approximate), Expires: 08/21/2024 [facility] Comment on above: Expected: 08/21/2023 (Approximate), Expires: 08/21/2024 Payers Date Payer Category Payer Medicaid [employer] [facility] [id number] 2022-Present [address] [address] [place] [address] [id number] 1990 Unknown [id number] 2.16.840.1.794038.3.579.2.593 1990 Unknown [id number] 2.16.840.1.244206.3.579.2.593 1990 Unknown [id number] 2.16.840.1.458435.3.579.2.727 1990 Unknown [id number] 2.16.840.1.273225.3.579.2.727 1990 Unknown [id number] 2.16.840.1.373574.3.579.2.727 1990 Unknown [id number] 2.16.840.1.265359.3.579.2.727 1990 Unknown [id number] 2.16.840.1.412078.3.579.2.727 1990 Unknown [id number] 2.16.840.1.565806.3.579.2.727 1990 Unknown [id number] 2.16.840.1.820110.3.579.2.727 1990 Unknown [id number] 2.16.840.1.018485.3.579.2.727 1990 Unknown [id number] 2.16.840.1.964068.3.579.2.727 1990 Unknown [id number] 2.16.840.1.455252.3.579.2.727 1990 Unknown [id number] 2.16.840.1.231756.3.579.2.727 1990 Unknown [id number] 2.16.840.1.533324.3.579.2.1259 1990 Unknown [id number] 2.16.840.1.347499.3.579.2.1259 1990 Unknown [id number] 2.16.840.1.463602.3.579.2.1259 1990 Unknown [id number] 2.16.840.1.478869.3.579.2.1259 1990 Unknown [id number] 2.16.840.1.969941.3.579.2.1259 1990 Unknown [id number] 2.16.840.1.946143.3.579.2.1259 1990 Unknown [id number] 2.16.840.1.292806.3.579.2.1259 1990 Unknown [id number] 2.16.840.1.920692.3.579.2.1259 1990 Unknown [id number] 2.16.840.1.922947.3.579.2.1259 1959 Unknown [id number] Self-pay Social History Date Type Detail Facility Tobacco Cigarettes [facility] Comment on above: 1 ppd Sex Assigned At Female [facility] Start: 04-14-2022 Tobacco smoking status Heavy tobacco smoker (finding) [facility] Tobacco smoking status NHIS Tobacco smoking consumption unknown [facility] Start: 02-14-2023 [facility] Start: 1990 Sex Assigned At Not on file [facility] Functional Status Date Assessment Result Facility 02-26-2023 Functional Status N/A [facility] 12-31-2022 Functional Status N/A [facility] 12-30-2022 Functional Status N/A [facility] 12-21-2022 Functional Status N/A [facility] 09-05-2022 Functional Status N/A [facility] 04-14-2022 Functional Status N/A [facility] Clinical Notes 07-06-2021 to 08-21-2023 JOHN PAUL Ardon - 08/21/2023 11:10 AM EST Note Date & Type Note Facility 08-21-2023 History of Presen t illness Narrative Reason for Appointment: Patient ID: [id number] Elena is a 33 y.o. female who [...] JOHN PAUL Ardon documented in this encounter [facility] 02-26-2023 Hospital Discharg e instructions Patient Education [...] condition. 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 Avoid contact with people who have cold [...] it is easier to cough up. Take bnum-mwx-oximvck and prescription medicines only as told by [...] provider. Document Revised: 10/27/2021 Document Reviewed: 10/27/2021 [employer] Patient Education 2022 [employer]. Follow Up Care 02/26/2023 15:53:57 With:Mark Ingram Address: [address] [place] [address] Business (1) When:03/01/2023 17:54:59 Comments:Call the office [...] you develop any new or worsening symptoms. [facility] 02-26-2023 Evaluation + Plan note Extrac kathi from: Title:ED Note Author:Namrata CAO, Juan Ortega e:02/26/23 Bronchitis (J40: Bronchitis, not specified as acute or chronic) Upper respiratory infection (J06.9: Acute upper respiratory infection, unspecified) Orders: albuterol, 2 puff(s), Inhalation, q4hr for 7 day(s), 8.5 gm, Refill(s) 0, [facility], 160, cm, 02/26/23 15:59:00 EDT, Height/Length Dosing, 85.6, kg, 02/26/23 15:59:00 EDT, Weight Dosing brompheniramine/dextromethorphan/PSE, 5 mL, Oral, QID for cold symptoms, 200 mL, Refill(s) 0, [facility], [facility], cm, 02/26/23 15:59:00 EDT, Height/Length Dosing, 85.6, kg, 02/26/23 15:59:00 EDT, Weight Dosing guaifenesin, 600 mg = 1 tab(s), Oral, q12hr, X 7 day(s), # 14 tab(s), Refills(s) 0, [facility], 160, cm, 02/26/23 15:59:00 EDT, Height/Length Dosing, 85.6, kg, 02/26/23 15:59:00 EDT, Weight Dosing predniSONE, 60 mg = 3 tab(s), Oral, Daily, X 5 day(s), # 15 tab(s), Refills(s) 0, [facility], 160, cm, 02/26/23 15:59:00 EDT, Height/Length Dosing, 85.6, kg, 02/26/23 15:59:00 EDT, Weight Dosing Rapid COVID Antigen ([facility]) [facility]06-24-2023 Hospital Discharge instructions Patient Education 12/31/2022 [...] if you start to feel better. Take djzd-bfg-ooqrbwb and prescription medicines only as told by [...] Document Reviewed: 09/08/2021 [employer] Patient Education 2022 [employer]. Follow Up Care 12/31/2022 10:02:50 With:Mark Pitts Address: [address] [place] [phone]- Business (1) When:01/03/2023 10:36:17 Comments:Follow-up with your primary care provider in 3 to 5 days. If symptoms worsen, do not improve, or new symptoms arise please report back to emergency department for further evaluation. [facility]06-23-2023 Hospital Discharge instructions Follow Up Care 12/30/2022 13:07:17 With:Mark Pitts Address: [address] [place] [phone]- Business (1) When:Within 3 Day(s) [facility]06-23-2023 Evaluation + Plan noteExtracted from: Title:ED Note Author:Javier Woods DO Date:12/09 09/29 Otitis externa, left (H60.92 : Unspecified otitis externa, left ear) Orders: ciprofloxacin-dexamethasone otic, 5 drop(s), Otic, BID for 7 day(s), 7.5 mL, Refill(s) 0, [facility], 160, cm, 12/30/22 13:14:00 EDT, Height/Length Dosing, 85.6, kg, 12/30/22 13:14:00 EDT, Weight Dosing [facility]06-14-2023 Hospital Discharge instructions Patient Education 12/21/2022 [...] or swathi your foot. General instructions Take tdqs-vav-jlliviq and prescription medicines only as told by [...] provider. Document Revised: 10/16/2020 Document Reviewed: 10/16/2020 [employer] Patient Education 2022 [employer]. 12/21/2022 14:54:11 Elastic Bandage and RICE Therapy [...] limityour activities and whether you should start aqhkb-ek-mbzdbc exercises for your injury. Ice Ice your [...] provider. Document Revised: 08/21/2020 Document Reviewed: 03/16/2018 [employer] Patient Education 2020 [employer]. 12/21/2022 14:54:11 Ankle Sprain, Phase II Rehab [...] by your health care provider. Stretching and pooyb-cb-dvafde exercises These exercises warm up your muscles [...] provider. Document Revised: 08/19/2021 Document Reviewed: 08/19/2021 [employer] Patient Education 2022 [employer]. 12/21/2022 14:54:11 Ankle Sprain, Phase I Rehab [...] told by your healthcare provider. Stretching and qfaku-gm-pqntdk exercises These exercises warm up your muscles [...] provider. Document Revised: 08/19/2021 Document Reviewed: 08/19/2021 [employer] Patient Education 2022 [employer] 12/21/2022 14:54:11 Ankle Sprain, Vjla-mj-Yukf Ankle Sprain An ankle sprain is a [...] blue. Managing pain, stiffness, and swelling Take jbrb-kby-fgsshcd and prescription medicines only as told by [...] provider. Document Revised: 08/19/2021 Document Reviewed: 08/19/2021 [employer] Patient Education 2022 [employer]. Follow Up Care 12/21/2022 13:24:37 With:Mark Pitts Address: [address] [place] [phone] Business (1) When:12/24/2022 14:27:12 Comments:Follow-up with your primary care provider in 3 to 5 days. If symptoms worsen, do not improve, or new symptoms arise please report back to emergency department for further evaluation. [facility]06-14-2023 Evaluation + Plan noteExtracted from: Title:ED Note Author:Loyd Lange PA-C te:12/21/22 Left ankle sprain (S93.402A: Sprain of unspecified ligament of left ankle, initial encounter) Sprain of left foot (S93.602A: Unspecified sprain of left foot, initial encounter) Orders: Crutches XR Ankle 3+ Views Left XR Foot 3+ Views Left [facility]02-28-2023 Hospital Discharge instructions Patient Education 09/05/2022 22:58:39 Hives, Jxlm-en-Betg Hives Hives are itchy, red, swollen areas [...] woman. Being allergic to foods such as: ?[place] fruits. ?Milk. ?Eggs. ?Peanuts. ?Tree nuts. ?Shellfish. [...] instructions at home: Medicines Take or apply cjah-llp-zsgcutd and prescription medicines only as told by [...] what causes your hives. Take and apply qfeb-hsb-atuysms and prescription medicines only as told by your doctor. Keep all follow-up visits as told by your doctor. This is important. This information is not intended to replace advice given to you by your health care provider. Make sure you discuss any questions you have with your health care provider. Document Released: 04/04/2009 Document Revised: 01/09/2019 Document Reviewed: 01/09/2019 [employer] Patient Education [employer]. Follow Up Care 09/05/2022 21:02:01 With:KATJA MCGINNIS Address: [address] [place] [phone]- Business (1) When:09/08/2022 21:23:21 Comments:Follow-up for further evaluation of your urticarial rashes and reactions. With:Mark Pitts Address: [address] [place] [phone]- Business (1) When:Within 3 Day(s) [facility]02-27-2023 Evaluation + Plan noteExtracted from: Title:ED Note Author:Loyd Lange PA-C te:09/05/22 Allergic reaction (T78.40XA: Allergy, unspecified, initial encounter) Urticaria (L50.9: Urticaria, unspecified) Orders: diphenhydrAMINE, 25 mg = 0.5 mL, Injection, IV Push, Once, Stop date 09/05/22 21:11:00 EST, STAT, Start date 09/05/22 21:11:00 EST, 09/05/22 21:11:00 EST epinephrine, 0.3 mg, IntraMuscular, Once, # 1 kit(s), Refills(s) 1, Pharmacy: [facility], 160, cm, 09/05/22 21:08:00 EST, Height/Length Dosing, 85.6, kg, 09/05/22:08:00 EST, Weight Dosing famotidine, 20 mg = [...] day(s), # 21 tab(s), Refills(s) 0, Pharmacy: [facility], 160, cm, 09/05/22 21:08:00 EST, Height/Length Dosing, 85.6, kg, 09/05/22:08:00 EST, Weight Dosing Sodium Chloride 0.9% intravenous solution, 1,000 mL, Soln-IV, IV, Once, Stop date 09/05/22:11:00 EST, STAT, Start date 09/05/22 21:11:00 EST, mL/hr, Infuse over 61, minute(s) [facility]10-06-2022 Hospital Discharge instructions Patient Education 04/14/2022 [...] symptoms? Symptoms of anaphylaxis may include: Feeling biology adjunct instructor the face (flushed). This may include redness. [...] you have hives or rash: ?Use an lffl-pdv-rrjcawm antihistamine as told by your health care provider. ?Apply cold, wet cloths (cold compresses) to your skin or take baths or showers in cool water. Avoid hot water. Take kzcq-umy-jfqlumi and prescription medicines only as told by your health care provider. Tell all your health care providers that you have an allergy. Keep all follow-up visits as told by your health care provider. This is important. How is this prevented? Avoid allergens that have caused an anaphylactic reaction in the past. When you are at a restaurant, tell your bistro server that you have an allergy. If you are not sure whether a menu item contains an ingredient that you are allergic to, ask your bistro server. Where to find more information [employer]: aaaai.org [place] [employer]: healthychildren.org Get help right [...] 06/26/2006 Document Revised: 10/18/2018 Document Reviewed: 10/18/2018 [employer] Patient Education 2020 [employer] Follow Up Care 04/14/2022 14:45:49 With:[facility] Address: [address] [place], [place] [phone]- Business (1) When:04/17/2022 18:33:05 [facility]05-13-2022 Hospital Discharge instructions Patient Education 11/19/2021 [...] have symptoms of anaphylaxis, such as: Feeling biology adjunct instructor the face (flushed). This may include redness. [...] you are at a restaurant, tell your bistro server that you have an allergy. If you are unsure whether a meal has an ingredient that you are allergic to, ask your bistro server. Take rxcy-ivh-fxbegpf and prescription medicines only as told by [...] 06/23/2001 Document Revised: 06/26/2018 Document Reviewed: 06/26/2018 [employer] Patient Education 2020 [employer]. Follow Up Care 11/19/2021 15:20:25 With:[facility] Address: [address] [place] [address] Business (1) When:11/22/2021 18:25:35 [facility]12-28-2021 NotePROCEDURE: CTA CHEST WO W CON [...] authenticated by: TULIO VILLASEÑOR Date: 2021-07-05 23:35[facility] No data available for this section [facility] Diagnosis Third trimester state, incidental Diabetes mellitus screening Screening for diabetes mellitus BV (bacterial vaginosis) Unspecified vaginitis and vulvovaginitis Nausea Nausea alone documented in this encounter [facility] No data available for this section [facility] Summary Purpose Family History No Family History Records FoundNo Family History Records FoundNo Family History Records Found Advance Directives No Advanced Directives Records FoundNo Advanced Directives Records FoundNo Advanced Directives Records Found Additional Source Comments INFORMATION SOURCE (unrecogn ized section and content) DATE CREATED AUTHOR 01/17/2022 [facility] DATE CREATED AUTHOR AUTHOR'S ORGANIZ ATION 02/26/2023 [facility] DATE CREATED AUTHOR AUTHOR'S ORGANIZ ATION 10/25/2023 [facility] EPIC Patient Care team informatio n (unrecognized section and content) Turn Out Relationship Specialty Start Date End Date Mark Pitts MD [address] [place] [phone] PCP - General Family Medicine 04/14/23 Turn Out Relationship Specialty Start Date End Date Mark Pitts MD [address] [place] [phone] PCP - General Family Medicine 04/14/23 Reason [...] BE BASED ON THE PRIMARY CLINICAL RECORDS. [facility] [employer] [facility] provides no warranty or guarantee of the accuracy or completeness of information in this document.
[2023-10-31 20:55] VITALS: BP 134/72; PULSE 85
--- OUTSIDE RECORDS SUMMARY | 2023-10-31 21:41 | XMS_ITS | CCD ---
Author Organization [facility] Care Team Providers Care Conditioning Coach Name Role Phone Mark Pitts Primary Care Physician PHILLIP LORA Admitting Unavailable HEBER, DR PRABHU Cervantes Consulting Unavailable PHILLIP LORA Attending Unavailable FLORENCIA, DR ROCK Primary Care Unavailable HARJEET, JOHN PAUL DUMAS Consulting Unavailable KASI, TULIO Consulting Unavailable MIKE, LIANNA Consulting Unavailable GREYSON, DR BROWNE Attending Unavailable GREYSON, DR BROWNE Consulting Unavailable FLORENCIA, DR ORCK Primary Care Unavailable GREYSON, DR BROWNE Admitting Unavailable Hubert, Saúl Attending Unavailable Hubert, Saúl Attending Unavailable Khadar, Charlie Hood Attending Unavailable Peggy, Javier Attending Unavailable Peggy, Javier Attending Unavailable Khadar, Charlie Hood Attending Unavailable HAIDER, John Attending Unavailable HAIDER, John Attending Unavailable MONICA, Willa Jean Attending Unavailable MONICA, Willa Tde Admitting Unavailable Quita Clark Attending Unavailable Lamin, [...] sources) Codeine; Translations: [codeine] Drug Allergy 3 [facility] (8 sources) Penicillin; Translations: [penicillin] Drug Allergy [facility] (1 source) Clindamycin Drug Allergy [facility] (1 source) Codeine Drug Allergy 4 [facility] (1 source) Penicillins Drug allergy (disorder) 4 [facility] (10 sources) Ibuprofen; Translations: [ibuprofen] Drug Allergy 3 Anaphylaxis (disorder), [facility] (6 sources) Amoxicillin; Translations: [amoxicillin] Drug Allergy 3 [facility] (3 sources) Penicillins Propensity to adverse reactions 3 Hives [facility] Medications Current Medications Medication Drug Class(es) Dates Sig (Normalized) Sig (Original) Albuterol (Eqv-ProAir HFA) 90 mcg/inh inhalation aerosol (1 source) Start: 02-26-2023 End: 03-05-2023 take 2 puff(s) by inhalation every four hours Albuterol (Eqv-ProAir HFA) 90 mcg/inh inhalation aerosol 2 puff(s), Inhalation, q4hr for 7 day(s), 8.5 gm, Refill(s) 0, [facility], 160, cm, 02/26/23 15:59:00 EDT, Height/Length Dosing, 85.6, kg, 02/26/23 15:59:00 EDT, Weight Dosing Start Date: 02/26/23 Stop Date: 03/05/23 Status: Ordered brompheniramine maleate 0.4 mg/ml / dextromethorphan hydrobromide 2 mg/ml / pseudoephedrine hydrochloride 6 mg/ml oral solution (9 sources) alpha-Adrenergic Agonist, Uncompetitive P-nnslge-U-aspartat e Receptor Antagonist, Sigma-1 Agonist Start: 02-27-2023 [...] for cold symptoms, 200 mL, Refill(s) 0, [facility], 160, cm, 02/26/23 15:59:00 EDT, Height/Length Dosing, 85.6, kg, 02/26/23 15:59:00 EDT, Weight Dosing Start Date: 02/26/23 Status: Ordered ciprofloxacin 3 mg/ml / dexamethasone 1 mg/ml otic suspension (2 sources) Corticosteroid, Quinolone Antimicrobial Start: 12-30-2022 End: 01-06-2023 Ciprodex 0.3%-0.1% Susp-Otic 5 drop(s), Otic, BID for 7 day(s), 7.5 mL, Refill(s) 0, [facility], 160, cm, 12/30/22 13:14:00 EDT, Height/Length Dosing, 85.6, kg, 12/30/22 13:14:00 EDT, Weight Dosing Start Date: 12/30/22 Stop Date: 01/06/23 Status: Ordered [id number] 0.3 ml EPINEPHrine 1 mg/ml auto-injector (9 [...] inventory, # 1 kit(s), Refills(s) 0, Pharmacy: [facility], 160, cm, 04/14/22 [...] day(s), # 7 tab(s), Refills(s) 0, Pharmacy: [facility], 160, cm, 04/14/22 14:56:00 EDT, Height/Length Dosing, 83, kg, 04/14/22 14:56:00 EDT, Weight Dosing Start Date: 04/14/22 Stop Date: 04/21/22 Status: Ordered Start: 11-19-2021 End: 11-26-2021 take 1 tablet by mouth once daily at bedtime Pepcid 40 mg Tab 40 mg = 1 tab(s), Oral, Once a day (at bedtime), X 7 day(s), # 7 tab(s), Refills(s) 0, Pharmacy: [facility], 160, cm, 11/19/21 [...] l route once daily Flonase 0.05 mg/inh [place] 2 spray(s), Nasal, Daily, 16 gram, Refill(s) 0, each nostril, [facility], 160, cm, 12/31/22 [...] day(s), # 14 tab(s), Refills(s) 0, Pharmacy: [facility], 160, cm, 02/26/23 [...] day(s), # 15 tab(s), Refills(s) 0, Pharmacy: [facility], 160, cm, 02/26/23 15:59:00 EDT, Height/Length Dosing, 85.6, kg, 02/26/23 15:59:00 EDT, Weight Dosing Start Date: 02/26/23 Stop Date: 03/03/23 Status: Ordered Start: 09-05-2022 End: 09-12-2022 take 3 tablets by mouth once daily predniSONE 20 mg Tab 60 mg = 3 tab(s), Oral, Daily, X 7 day(s), # 21 tab(s), Refills(s) 0, Pharmacy: [facility], 160, cm, 09/05/22 21:08:00 EST, Height/Length Dosing, 85.6, kg, 09/05/22 21:08:00 EST, Weight Dosing Start Date: 09/05/22 Stop Date: 09/12/22 Status: Ordered Start: 04-14-2022 End: 04-21-2022 take 3 tablets by mouth once daily predniSONE 20 mg Tab 60 mg = 3 tab(s), Oral, Daily, X 7 day(s), # 21 tab(s), Refills(s) 0, Pharmacy: [facility], 160, cm, 04/14/22 14:56:00 EDT, Height/Length Dosing, 83, kg, 04/14/22 14:56:00 EDT, Weight Dosing Start Date: 04/14/22 Stop Date: 04/21/22 Status: Ordered Start: 11-19-2021 End: 11-26-2021 take 3 tablets by mouth once daily predniSONE 20 mg Tab 60 mg = 3 tab(s), Oral, Daily, X 7 day(s), # 21 tab(s), Refills(s) 0, Pharmacy: [facility], 160, cm, 11/19/21 [...] q4hr, # 14 tab(s), Refills(s) 0, Pharmacy: [facility] 1985 Start Date: 03/21/19 Status: Ordered traMADol hydrochloride 50 mg oral tablet (1 source) Opioid Agonist Start: 12-31-2022 End: 01-03-2023 take 1 tablet by mouth every six hours as needed for pain traMADOL 50 mg Tab 50 mg = 1 tab(s), Oral, q6hr, PRN for pain, X 3 day(s), # 12 tab(s), Refills(s) 0, Pharmacy: [facility], 160, cm, 12/31/22 10:20:00 EDT, Height/Length Dosing, 85.6, kg, 12/31/22 10:20:00 EDT, Weight Dosing Start Date: 12/31/22 Stop Date: 01/03/23 Status: Ordered Zofran ODT 4 mg Tab-Dis (14 sources) Start: 08-05-2019 take 1 tablet by mouth three times daily Zofran ODT 4 mg Tab-Dis 4 mg = 1 tab(s), Oral, TID, # 15 tab(s), Refills(s) 0, Pharmacy: [facility], 160, cm, 08/05/19 9:28:00 EST, Height/Length Measured, 86.5, kg, 08/05/19 9:28:00 EST, Weight Measured Start Date: 08/05/19 Status: Ordered Start: 03-21-2019 take 1 tablet by savannah th every six hours Zofran ODT 4 mg Tab-Dis 4 mg = 1 tab(s), Oral, q6hr, # 10 tab(s), Refills(s) 0, Pharmacy: [facility] 1985 Start Date: 03/21/19 [...] te Episodic/Chronic Other aftercare (1 source) Other meterman (current) drug therapy; Translations: [OTH ABSORBER OPERATOR CURRENT DRUG THERAPY] Onset: 07-07-2021 Episodic [...] [Ratio] 15.0 % 11.0 - 15.0 % [facility] Hematocrit (Bld) [Volume fraction] 31.4 % Low 36.0 - 48.0 % [facility] Hemoglobin (Bld) [Mass/Vol] 9.7 g/dL Low 12.0 - 16.0 g/dL [facility] IMMATURE GRANULOCYTES ABS AUTO 0.05 High [facility] Immature granulocytes/100 WBC (Bld) 0.4 % 0.0 - 0.5 % [facility] Interpretation and review of laboratory results Abnormal [facility] LYMPHOCYTES ABSOLUTE AUTO 2.6 [facility] Lymphocytes/100 WBC (Bld) 19.4 % Low 20.5 - 60.0 % [facility] MCH (RBC) [Entitic mass] 25.3 pg Low 26.7 - 34.0 pg [facility] MCHC (RBC) [Mass/Vol] 30.9 g/dL 29.9 - 35.2 g/dL [facility] MCV (RBC) [Entitic vol] 82.0 fL 81.0 - 99.0 fL [facility] MONOCYTES ABSOLUTE AUTO 0.3 [facility] Monocytes/100 WBC (Bld) 2.6 % 1.7 - 12.0 % [facility] NEUTROPHILS ABSOLUTE AUTO 10.2 High [facility] Neutrophils/100 WBC (Bld) 76.7 % High 43.0 - 75.0 % [facility] Platelet mean volume (Bld) [Entitic vol] 10.6 fL 9.5 - 13.5 fL [facility] TBH EO # 0.1 [facility] TB PLT 176 [facility] RBC 3.83 Low [facility] WBC 13.3 High [facility] Urinalysis macro (dipstick) panel (U)on 08-21-2023 Bilirubin, UA Negative Negative - 4(70) +++ mg/dL [facility] Blood, UA Negative Negative - 50 Juan Alberto/mcL [facility] Clarity, UA Clear [facility] Color, UA Yellow [facility] Glucose, UA Negative Negative - 2000(110) ++++ mg/dL [facility] Interpretation and review of laboratory results Normal [facility] Ketones, UA Negative Negative - 160(16) ++++ mg/dL [facility] Leukocytes, UA Negative Negative - 500+++ Geovani/mcL [facility] Nitrite, UA Negative Negative - Positive [facility] pH, UA 7.0 5 - 9 [facility] Protein, UA Negative Negative - 1999(20) ++++ mg/dL [facility] Spec Grav, UA 1.015 1 - 1.03 [facility] Urobilinogen, UA 0.2 0.2 - 12 mg/dL Counts include 234 beds at the [facility] Cytology Cervical or vaginal smear or scraping studyon 06-15-2023 [facility] Consent for Treatmenton 02-08 Consent for Treatment [id number]#1 .00CD:127 Normal [facility] Discharge Instructionson Discharge Instructions [id number]# 1.00CD:127 Normal [facility] ED Clinical Summaryon 2022 ED Clinical Summary [address] [address] ED Clinical Summary Person Information Name: RJ ELENA Calista/[facility] Age: 32 Years : 1990 Sex: Female Language: Barbadian PCP: Mark Pitts DO Marital Status: Single Phone: [phone] Visit Id: Visit Reason: Shortness of breath; [...] 02/26/2023 18:10:02 02/26/2023 18:10:02 02/26/2023 18:10:02 ADDRESS: [address] [place] [address] [address] [facility] [id number] PHYS DOC NOTES: MEDICAL INFORMATION: Prescriptions Given: New Medications [facility], [address] [place], [place] [id number], [phone] albuterol (Albuterol (Eqv-ProAir HFA) 90 mcg/inh inhalation aerosol) 2 Puffs Inhalation every 4 hours for 7 Days. Refills: 0. guaifenesin (Mucinex 600 mg Tab-ER) 1 Tablets By Mouth every 12 hours for 7 Days. Refills: 0. Medications to Continue Taking That Have Changed [facility], [address] [place], [place] [id number], [phone] START: brompheniramine/dextr omethorphan/PSE (Bromfed DM oral syrup) [...] Refills: 0. fluticasone nasal (Flonase 0.05 mg/inh [place]) 2 Sprays Nasal Inhalation every day. each [...] Follow up: With: Address: When: Mark Pitts [address] [place], [place] [address] Business (1) In 3 days 03/01/2023 Comments: [...] symptoms. DIAGNOSIS: Bronchitis; Upper respiratory infection Normal [facility] ED Note-Physicianon 02-27-20 ED Note-Physician Basic Information [...] and Complexity of Problems Differential Diagnosis: [] [facility] Data External documents reviewed: [] [...] for 7 day(s), 8.5 gm, Refill(s) 0, [facility], 160, cm, 02/26/23 15:59:00 EDT, Height/Length Dosing, 85.6, kg, 02/26/23 15:59:00 EDT, Weight Dosing brompheniramine/dextr omethorphan/PSE, 5 mL, Oral, QID for cold symptoms, 200 mL, Refill(s) 0, [facility], 160, cm, 02/26/23 15:59:00 EDT, Height/Length Dosing, 85.6, kg, 02/26/23 15:59:00 EDT, Weight Dosing guaifenesin, 600 mg = 1 tab(s), Oral, q12hr, X 7 day(s), # 14 tab(s), Refills(s) 0, [facility], [facility], cm, 02/26/23 15:59:00 EDT, Height/Length Dosing, 85.6, kg, 02/26/23 15:59:00 EDT, Weight Dosing predniSONE, 60 mg = 3 tab(s), Oral, Daily, X 5 day(s), # 15 tab(s), Refills(s) 0, Pharmacy: [facility] (more content not included)... Normal [facility] Comment on above: Result Comment: Elec tronically [...] Follow these instructions at home: ? Take mueh-omo-bkquczc and prescription medicines only as told by [...] and water are not available, use hand sr. consultant. ? Avoid contact with people who have [...] is easier to cough up. ? Take udoc-ddw-lvjgmqk and prescription medicin (more content not included)... Normal [facility] ED Patient Summaryon 023 ED Patient Summary [place] [id number] Patient Discharge Instructions Person Information Name: RJ ELENA Age: 32 Years Arrival Date: 02/26/2023 15:53:15 Discharge Diagnosis: Bronchitis; Upper respiratory infection Primary Care Physician: Mark Pitts DO Provider Information Primary Provider: Charlie Rubalcava DO Advanced Homeopathic Doctor:Juan Ott PA-C The exam and treatment you received in the Emergency Department were for an urgent problem and are not intended as complete care. It is important that you follow up with a doctor, nurse practitioner, or physician?s digital sales assistant for ongoing care. If your symptoms [...] Follow-up Instructions: With: Address: When: Mark Pitts [address] [place] [address] [facility] (1) In 3 days 03/01/2023 Comments: [...] opioids can be used to help relieve pcrpjzts-fo-botpgr pain and are often prescribed following a [...] and family) (more content not included)... Normal [facility] MICRO OTHER TESTSOrdered By: Juvenal Macario on 02-26-2023 Rapid COV Int NEG Ctl Pass (02/26/23 4:45 PM) Normal [facility] [place] Rapid COV Int POS Ctl Pass (02/26/23 4:45 PM) Normal [facility] [place] SARS-CoV+SARS-CoV-2 (COVID-19) Ag IA.rapid Ql (Resp) Not Detected (02/26/23 4:45 PM) Normal Not Detected [facility] Prescriptions/Work Noteson 0 02-26-2023 Prescriptions/Work Notes [id number]# 1.00CD:127 Normal [facility] Rapid COVID Antigen ([facility])on 02-26-2023 Rapid COV Int NEG Ctl Pass Normal [facility] Comment on above: Performed By: #### 2 [id number] ####[facility] [address] [place] [address] Rapid COV Int POS Ctl Pass Normal [facility] Comment on above: Performed By: #### 2 [id number] ####[facility] [address] [place] [address] SARS-CoV+SARS-CoV-2 (COVID-19) Ag IA.rapid Ql (Resp) Not detected Normal Not Detected [facility] Comment on above: Result Comment: The Infrascaleitor? System for Rapid Detection of SARS-CoV-2 is [...] or revoked sooner. Performed By: #### 2 [id number] ####[place] [address] ADMITTED TO INTENSIVE CARE UNIT FOR CONDITION OF INTEREST:FIND:PT: NO Normal [facility] Comment on above: Performed By: #### 2 [id number] ####[place] [address] EMPLOYED IN A HEALTHCARE SETTING:FIND:PT: NO Normal [facility] Comment on above: Performed By: #### 2 [id number] ####[place] [address] FIRST TEST FOR CONDITION OF INTEREST:FIND:PT: Unknown Normal [facility] Comment on above: Performed By: #### 2 [id number] ####[place] [address] HAS SYMPTOMS RELATED TO CONDITION OF INTEREST:FIND:PT: YES Normal [facility] Comment on above: Performed By: #### 2 [id number] ####[place] [address] HOSPITALIZED FOR CONDITION OF INTEREST:FIND:PT: NO Normal [facility] Comment on above: Performed By: #### 2 [id number] ####[place] [address] STATUS:FIND:PT: NO Normal [facility] Comment on above: Performed By: #### 2 [id number] ####[place] [address] RESIDES IN A [facility] SETTING:FIND:PT: NO Normal [facility] Comment on above: Performed By: #### 2 [id number] ####[place] [address] XR Chest 2 Viewson 3 XR Chest [...] mGy = na DAP = na Normal [facility] In office Testingon 01-31-20 23 In office Testing [id number]#1 .00CD:127 Normal [facility] Registrationon 01-30-2023 Registration [id number]# 1.00CD:127 Normal [facility] ED Note-Physicianon 01-10-20 ED Note-Physician Basic Information [...] and Complexity of Problems Differential Diagnosis: [] [facility] Data External documents reviewed: [] [...] Daily, 16 gram, Refill(s) 0, each nostril, [facility], 160, cm, 12/31/22 10:20:00 EDT, Height/Length Dosing, 85.6, kg, 12/31/22 10:20:00 EDT, Weight Dosing tramadol, 50 mg = 1 tab(s), Oral, q6hr, PRN for pain, X 3 day(s), # 12 tab(s), Refills(s) 0, Pharmacy: [facility], 160, cm, 12/31/22 10:20:00 EDT, Height/Length Dosing, 85.6, kg, 12/31/22 10:20:00 EDT, Weight Dosing Disposition Plan Patient Discharge Condition Stable Discharge Disposition To home Discharge Prescription List Prescriptions Ciprodex 0.3%-0.1% Susp-Otic, 5 drop(s), Otic, BID Flonase 0.05 mg/inh [place], 2 spray(s), Nasal, Daily traMADOL 50 mg Tab, 50 mg= 1 tab(s), Oral, q6hr, PRN Follow-up With When Contact Information Mark Pitts In 3 days 01/03/2023 EDT [address] [place] [address]- Business (1) Additional Instructions: Follow-up with your primary care provider in 3 to 5 days. If symptoms worsen, do not improve, or new symptoms arise please report back to emergency department for further evaluation. Patient Education Otitis Externa Attestation Patient seen and evaluated by the physician digital sales assistant. Attending physician was present in the emergency department and supervised care. This visit was performed by both the physician and an APC. I performed all aspects of the MDM as documented. This report was transcribed u (more content not included)... Normal [facility] Comment on above: Result Comment: Elec tronically Signed By: Loyd Lange PA-C\.br\Date and Time Signed: 12/31/22 11:53 EDT\.br\Electronically Co-Signed By: Javier Woods DO\.haris\Date and Time Co-Signed: 01/09/23 07:15 EDT Consent for Treatmenton 12-09 Consent for Treatment [id number] .00CD:127 Normal [facility] Discharge Instructionson Discharge Instructions [id number] 1.00CD:127 Normal [facility] ED Clinical Summaryon 2022 ED Clinical Summary [address] [address] ED Clinical Summary Person Information Name: RJ ELENA/[facility] Age: 32 Years : 1990 Sex: Female Language: Barbadian PCP: Mark Pitts DO Marital Status: Single Phone: [phone] Visit Id: Visit Reason: Ear pain; EAR [...] 10:41:35 ADDRESS: [address] [place] [id number] PHYS DOC NOTES: MEDICAL INFORMATION: Prescriptions Given: New Medications [facility], [address] [place], [place] [id number], [phone] fluticasone nasal (Flonase 0.05 mg/inh [place]) 2 Sprays Nasal Inhalation every day. each [...] Follow up: With: Address: When: Mark Pitts [address] [place] [address] Business (1) In 3 days 01/03/2023 Comments: Follow-up with your primary care provider in 3 to 5 days. If symptoms worsen, do not improve, or new symptoms arise please report back to emergency department for further evaluation. DIAGNOSIS: Bilateral otitis externa Normal [facility] ED Patient Education Noteon 12-31-2022 ED Patient [...] you start to feel better. ? Take hwax-wty-rbpszpq and prescription medicines only as told by [...] provider. Document Revised: 09/08/2021 Document Reviewed: 09/08/2021 [employer] Patient Education ? 2022 [employer] Normal [facility] ED Patient Summaryon 023 ED Patient Summary [place] [id number] Patient Discharge Instructions Person Information Name: RJ ELENA Age: 32 Years Arrival Date: 12/31/2022 10:01:25 Discharge Diagnosis: Bilateral otitis externa Primary Care Physician: Mark Pitts DO Provider Information Primary Provider: Javier Woods DO Advanced Homeopathic Doctor:None The exam and treatment you received in the Emergency Department were for an urgent problem and are not intended as complete care. It is important that you follow up with a doctor, nurse practitioner, or physician?s digital sales assistant for ongoing care. If your symptoms [...] Follow-up Instructions: With: Address: When: Mark Pitts [address] [place], [place] [address] Business (1) In 3 days 01/03/2023 Comments: [...] opioids can be used to help relieve yuzuduqk-xq-vrhhbo pain and are often prescribed following a [...] overdose. ? (more content not included)... Normal [facility] Consent for Treatmenton 12-09 Consent for Treatment [id number] .00CD:127 [facility] Discharge Instructionson Discharge Instructions [id number]# 1.00CD:127 [facility] ED Clinical Summaryon 2022 ED Clinical Summary [address] [address] ED Clinical Summary Person Information Name: RJ ELENA [place] Age: 32 Years : 1990 Sex: Female Language: Barbadian PCP: Mark Pitts DO Marital Status: Single Phone: [phone] Visit Id: Visit Reason: Ear pain; DOUBLE [...] 12/30/2022 13:59:40 12/30/2022 13:59:40 12/30/2022 13:59:40 ADDRESS: [address] [place] [address] [address] [facility] [id number] PHYS DOC NOTES: MEDICAL INFORMATION: Prescriptions Given: New Medications [facility], [address] [place], [place] [id number], [phone] ciprofloxacin-dexamet hasone otic (Ciprodex 0.3%-0.1% Susp-Otic) 5 [...] INFORMATION: Instructions: Follow up: With: Address: When: [address] [address] Business (1) In 3 days DIAGNOSIS: Otitis externa, left Normal [facility] ED Note-Physicianon 12-31-19 ED Note-Physician Basic Information [...] Information Mark Pitts In 3 days [address] [facility] (1) Additional Instructions: Problem List/Past Medical [...] Diagnostic Results No qualifying data available. Normal [facility] Comment on above: Result Comment: Elec tronically Signed By: Javier Woods DO\.br\Date and Time Signed: 12/30/22 13:54 EDT ED Patient Education Noteon 12-30-2022 ED Patient Education Note Normal [facility] ED Patient Summaryon 023 ED Patient Summary [place] [id number] Patient Discharge Instructions Person Information Name: RJ ELENA Age: 32 Years Arrival Date: 12/30/2022 13:06:22 Discharge Diagnosis: Otitis externa, left Primary Care Physician: Mark Pitts DO Provider Information Primary Provider: Javier Woods DO Advanced Homeopathic Doctor:None The exam and treatment you received in the Emergency Department were for an urgent problem and are not intended as complete care. It is important that you follow up with a doctor, nurse practitioner, or physician?s digital sales assistant for ongoing care. If your symptoms [...] Follow-up Instructions: With: Address: When: Mark Pitts [address] [place] [address] Business (1) In 3 days In the event that this physician does not participate in your insurance network, please consult with your insurance company to find a nearby participating provider. Patient Education Materials: A MESSAGE TO ALL PATIENTS REGARDING OPIOIDS PRESCRIPTION OPIOIDS: WHAT YOU NEED TO KNOW Prescription opioids can be used to help relieve dufhofds-or-hsmqin pain and are often prescribed following a [...] be struggling with addiction, tell your health early breastfeeding care specialist and ask for guidance or call [facility]?S National Helpline at 8-922-702-XHXN. e Source: [place] Department of Health and Human Services/Adeline (more content not included)... [facility] Registrationon 12-27-2022 Registration [id number]#1. 00CD:127 [facility] [place] 12-26-2022 Consent [id number]# 1.00CD:127 [facility] Registrationon 12-26-2022 Registration [id number]# 1.00CD:127 [facility] Consent for Treatmenton 12-08 Consent for Treatment [id number]#1 .00CD:127 [facility] Discharge Instructionson Discharge Instructions [id number]#1 .00CD:127 [facility] ED Clinical Summaryon 2022 ED Clinical Summary [address] [address] ED Clinical Summary Person Information Name: RJ ELENA [place] Age: 32 Years : 1990 Sex: Female Language: Barbadian PCP: Mark Pitts DO Marital Status: Single Phone: [phone] Visit Id: Visit Reason: Foot pain-swelling; ROLLED [...] 12/21/2022 14:54:11 12/21/2022 14:54:11 12/21/2022 14:54:11 ADDRESS: [address] [place] [address] [address] [facility] [id number] PHYS DOC NOTES: MEDICAL INFORMATION: Prescriptions Given: [...] Ankle Sprain, Phase I Rehab; Ankle Sprain, Gjcg-gh-Agbb Follow up: With: Address: When: Mark Pitts [address] [place], [place] [id number] Business (1) In 3 days 12/24/2022 Comments: Follow-up with your primary care provider in 3 to 5 days. If symptoms worsen, do not improve, or new symptoms arise please report back to emergency department for further evaluation. DIAGNOSIS: Left ankle sprain; Sprain of left foot Normal [facility] ED Note-Physicianon 12-22-19 ED Note-Physician Basic Information [...] and Complexity of Problems Differential Diagnosis: [] [facility] Data External documents reviewed: [] [...] House In 3 days 12/24/2022 EDT [address] [id number] Business (1) Additional Instructions: Follow-up with your primary care provider in 3 to 5 days. If symptoms worsen, do not improve, or new symptoms arise please report back to emergency department for further evaluation. Patient Education Foot Sprain Elastic Bandage and RICE Therapy Ankle Sprain, Phase II Rehab Ankle Sprain, Phase I Rehab Ankle Sprain, Ozsg-kk-Qomj Attestation Patient seen and evaluated by the physician digital sales assistant. Attending physician was present in the emergency department and supervised care. This visit was performed by both the physician and an APC. I performed all aspects of the MDM as documented. This report was transcribed using voice recognition software. Every effort was made to ensure accuracy, however, inadvertent (more content not included)... Normal [facility] Comment on above: Result Comment: Elec tronically [...] on your foot. General instructions ? Take joam-wfx-thxkjfh and prescription medicines only as told by your health care provider. ? When you can walk without pain, wear supportive shoes t (more content not included)... Normal [facility] ED Patient Summaryon 023 ED Patient Summary [address] [address] Patient Discharge Instructions Person Information Name: RJ ELENA Age: 32 Years [facility]: [id number] Arrival Date: 12/21/2022 13:23:04 Discharge Diagnosis: Left ankle sprain; Sprain of left foot Primary Care Physician: Mark Pitts DO Provider Information Primary Provider: Charlie Rubalcava DO Advanced Homeopathic Doctor:None The exam and treatment you received in the Emergency Department were for an urgent problem and are not intended as complete care. It is important that you follow up with a doctor, nurse practitioner, or physician?s digital sales assistant for ongoing care. If your symptoms [...] Follow-up Instructions: With: Address: When: Mark Pitts [address] [place] [address] Business (1) In 3 days 12/24/2022 Comments: [...] Ankle Sprain, Phase I Rehab; Ankle Sprain, Bdet-wl-Ujwh A MESSAGE TO ALL PATIENTS REGARDING OPIOIDS PRESCRIPTION OPIOIDS: WHAT YOU NEED TO KNOW Prescription opioids can be used to help relieve ezuixqhr-xz-hmvdhu pain and are often prescribed following a [...] Drug Administrati (more content not included)... Normal [facility] XR Ankle 3+ Views Lefton XR Ankle [...] mGy = . DAP = . Normal [facility] XR Foot 3+ Views Lefton 12-08 XR [...] mGy = . DAP = . Normal [facility] Registrationon 12-16-2022 Registration [id number]# 1.00CD:127 Normal [facility] [place] 12-15-2022 Consent [id number]# 1.00CD:127 Normal [facility] Coding Summary.on 09-06-2022 Coding Summary. CD:[id number] G h0bWw+PGhlYWQ+OV9FVFC zC26mtPLpoW4BM2gHFC6Q PYMFADYOQQ2KLW8cnKI8J IsoF2XofnOb UfgqwAGqXO86TEi9JOG4s IqyXAyctU1anPPjK0t6Lo ZvFX15hV55TRjjNLJwOqF 3LjZpbjsgbWFy N1qqZsQqoQFrBvf+PHRhY mxlIHdpZHRoPScxMDAlJy NnfTitUC7fVo4iENLkHKK vbGxhcHNlOiBj z8cvCHBtXSlxLE8zsGpaW 8LsqCQ3DDRsb6c7Wv23vA I+ZXVpHQM0cQyqNOgqe82 4OwDxt8rjUMV0 dKMmQFecDEX4R44oo8M0T EFxWPIyLIZ3uQF9cB8pkQ ttqxggD6CeiOExGvF5DES 9bSSvkP8gaSgn ysbgdE9cNii+K71LFF6AB JSPOG6VYjd3H4GuDudeoD I+IB28LPTqIV46fXXhsOE br9fzoAr5QqUj LVZnBMW6fIstJPugr1EvR CIbU58euCDlq1Z5DYQrwP usfBItNxXpcOT6qC5uPDe spimyu9cmewhy Autbh7vfxk79eT15C13fF ZehIHEgLOR6YLXwQBGpoH msfb2fbG6aRg1+XVokg5d xr0gciVq9HeXk NVPaclMcdXyhTYU5a7IbU y54G9GvkHluw5WdFey3bh 42dEWcw7J4zCH0KYnxWFW yqU3uLLdbRqO5 JZDuEdKgyC78bJHjCItkD t5quQckzJpoXM1aDRBuzb qdCUOifN7rLZTgoRFnkXu pGY2lHQWpwkqo r248ZeWlBAQ2BAFimGQsH 4GnvH3zKlMaOYEiQORaC9 FprAIfHQxrA387IThfKyM 1DTYagyOiS0Ka ZFUukNpdSbU5c2L4Vg0Lw 4SkwehjLCH9XZymJJVnXq A8TeTdYxP1A4RtZjz8AFS abNqlJK2zD3Xl HBBfbqhzfldogUB8DNUjT TIvuO91yYVrFXjiPq4ru4 W8g972DAHhRONgbA88Nh0 udDogMTBwdCBU pD6jokakg1kaiqpwFrPzX OVsOYm6JZn3WOMmiBldXo OmZTP7DiR9RTR2hLNbbW1 kvZudzivwnQ5l Oyc+N12rzS0qGHV2ZDD8n nqnECPppbSyWW97WJ85B7 RyPjwvdGFibGU+PGRpdiB lgJenEH3gYhJv q1sdk6LzKDgqW6TwQKDdG CdsAdw0TITrJSS7fAZ6eJ 6iDKUmTJgdz8B5aDN9B2P lhaGizx4xb4so WIEzVPzsS95awUVgo1I0C JKpkRW0UDIviOiuGlJabV 93Oyc+FHGntFvqw9XeYph dc8gxi7batTl1 UkVtFDFmhcLapGilBTL1o 9GgFz71R61xCRztVYBjSC RrGPWqSNZfnJzblj4hfQ3 wIi8+PGNvbCB3 zXC8yE6mZTQzNqX8WBtvI 106GzEtkTHwVojds5fcy5 wrqOd0BlOoHNYwjpLdcKi eGLS0b7AdJs23 G42wMNwnPYGkTAHnAYEtP HJnmMgtmi1cmY3qLi4+PC 1fd3eayj06pF15wGA+PHR iWMY4mJzkMQwb IFSptP5gMHrsHeZ4RXOpE iNavB48bNDvGCrqXb1elJ gkqKwjNG4yBCBecgbbf71 1ImWne7qzQBNc aUAzGCzlBEE0Y73th5R2K WWsYLCcMOE8jWC1rG6pnB lnbjogbGVmdDsgdmVydGl cLPyrAXbqW697 IHRvcDsnPlBhdGllbnQgT zAjESu0G6VuJsb5XBUthY yxHJ6vxPQjPTkpXe1muPd cvBijDK7iITSx zgqdo837WfKng8cwIUIcu JJdCMwvGZS9S46li3B4JX CzVQVuSHT9rGQ6jT6ruNt nbjogbGVmdDsg smKubZoyKQtcBYyoZ137T HRvcDsnPkJpcnRoIERhdG M9HS88XR77yJFyy4M4uES 6F4XpGRCzdrna rmgpcRK8POJbUTDcbL30G h4irFsqNa3jVHYeGOE5WO PvvSGqX9KgpX4kKmHbIJS xWKEtM9NgyMVs WWgpO084PAsvFdW6DDCjm rIfK1MnKPMhaXjfXrO2m6 R1Lo7KM6W3OJ61FQ23hEB dc3G7sPB3X9Hr MZEnwldoavpxbWH5SGTxF VLauL25Lh1vhIqdIk6qYH NaVTX4EKMvyPYuT0RvbF7 yOiAjMDAwMDAw E7NvbXOzAGffP330SYhjP zZ4VASoufAkN5UcDLKcsO dpTzL2i5D8Mv7ZLEc2JG1 9ZS39jDVnr4Z9 oSN5W3QjQSGjzhlkmmtbi GG3NJVkGNFslG02Ow6idR mdEy4eTJUkRJE2TKEnmBF mD7FatN7iJrCt FQRiUHFoY8TsbVWgWTvfN 633ECmoIiR4AHYclsYeD1 WdDBXpzMunWhH3i2E3Nc7 NVFZhLZ16ZYW4 dWP1OX97EE46W3ClRfrqr GFibGU+PHRhYmxlIHdpZH RoPScxMDAlJyBzdHlsZT0 wHu3fQXHdPEXo iOamdNDcTbZhd4mbDWXhV QzgZK2agDnfQ0LhzCE1JW Crw5b4Oq48I96bY4CnhSV +SSPpnOL2yLT9 iS0nVuMxMnS0MMuhK680N wZmnYMhAiitv5vng7lbyN c9HnN8TTPgznZklFbvJEC 8e6YrZn85N22v IHdpZHRoPSIxNSUiIHZhb Osftu4kaB1kDu2+PGNvbC M8xIL7dR2nVrPgAwJ6SKj mT990XjTdfLFi Nksvs0jec6jdxAg6PtByN GDkolFetRowOZC9u6RkNg 50G8RdnFgrq5ZtEey5sv1 1wMCxt7M7aVX7 K1NiLEWciakunBJedFsbL X9zGNRifcftTBQjbJ2pJC TrX1s6UgNuVyP4WTgyQ5R elwM9JBZmbDQd STaoQWK7A64mj6L8WQTqQ OWnVUE8sVH2eG6fpIfvsl ogbGVmdDsgdmVydGljYWw qLJgdT117IRGg dAcsPPYskV9tKQCwjOOep ChmPE6tRQSbfwytQfTPWH VCUOkmUXEKC4BJXQyPHSH gRzwvdGQ+PHRk CIP4oUrdYOhqMOMfkZ0fM SUyV4b3RxSjXaE5SNzcP8 ZeFFGzxuscIc65bJ9jVaL mEdP6CDysV4Kz xsB1WDNooMBqUUrrJYP6A 72xh4U7SHCaFPBfZSO5uM D3rI0byIjfrfkhfHVesSr gdmVydGljYWwt FKykS870FLXffWrsPbIfO yF9OzM0FBZ3W7YsZkq7PD RuhRpaQB5rwDZuLGquKb3 whBvirSxlSR0a OBJmnawkDHDioD1sMXEeh WLheGuqLP2uGDYxnrrwz3 23KfIlBJJ4HHWhgZTtX1T nyT8jDqImULWc PXGvD2TozQNoJCvuS983B UrdIsI9WZQkzyTuS6FcQX LpuUqtOmA5u8B9Od8hDaL ZZWFyczwvdGQ+ THIeFTA9zQslAIwqFTKus Y2rFCSaZ0h9TzJnUgY5EI awQ0WsCETvwfvmIp31dM6 yWmPfYsD7WUch Y2DflrY5UBNebNSrDBufU YU7R28gc7O7NLAuDGNjYU Q3rPH4hQ0srJdjstcgiGS mdDsgdmVydGlj WHpgSKzfL261VVKbvPixV kZlbWFsZTwvdGQ+PHRkIH I8eKkpVOhuCUNwoQ0aHCW cS8m2KwDwWlX4 RHhiW4AnWUPnrnhiTk01k N3aWxIfChL6RPybK1Ytot Y6LIVvqGYdGRamXZC7V14 kt2S1ARUkSREr ZHP1aXX2pD7wgVghgpzgu GVmdDsgdmVydGljYWwtYW tvV351SGZxsCkcToGvUCV eTT8yhLpmpGH+ KY34sa93M3KpFejlUrr6U FJsEYQ5zDT9tQ6iCSFlSR vld4I5yLO1L6PodfCytg1 tq2rsLLDvBAaq J76rsHLfi1R8GTKbdWF7G BPjzVnrYgGhnA71Rht+PG IvzWyeb0LsGjkui5fup6l neDq8CwFsQSRb qaPgkWnhJYI8i6FbEq07U 29sIHdpZHRoPSIzMCUiIH VseUpcuu4ydT2oLr0+PGN jgTF8kDF5fI2c TxLbIyG6WLucE330YrAgo JYlLocbj8itq7fkzYg8Ss MjMGNabgAjmLycSBS3g2A wLv34Z5FbuPiz i3DmQwz8qy97vWOec2Z5y DR3N4QxSRBjtwwbhQSffV smZG9kDQLceiqyDRRozQ6 fATBaQ8f0OiXu DpG4ZPrmA0WlizY3XDZgj YWzGARdhRQBsA2sjywmm7 lzvqspXhWdCJReFWv8SNn 0LWFsaWduOiBs LFT0NrI3YOM9rCGgvG3ne FeepqwmkL0vPpw+UGh5c2 ajxTGvXD9osDW3RB46LI2 2mDIxx6M0uPA6 V3JvTEFrsvfchbzztBO7J FHbMDKcpB15Km5etXhuPx 6dNMClTKM8UCSitUWfQ6F jqZ6wCxQgOHJo QIFuN3YylEWaGLycO576K UcwKrL8DBYadbTsI8WpBK DapObvJhT4u7I2Ns9HEM0 9MV36WK10vKVv f2P5hCK9E1YjPQZcqpocb tszvFR1UCIgVUUssC22Di 1mlDlxWq4gZZRtIIL1GST gvOIrF8KhzH3p MtYrZBYvYGVvX2OkyROiM JczJ562HUrzXzN7RWTdwf PdG2ZlDUYblIzlGbJ0v5N 3Ca5VWr57EQ40 OC25fYPom8U0hKO4G6NxS GKatnfgcfegjDV9TQFkEV UzyX70Kh5brPmcBt1uFXI mAFP5LHZxaNOj K5LulX3eOyNgVTAvTHNwT 4OfyIIzMSjhZ506ARgyGl F7CAOchrAsO4AdIJOhzBc yGeE3k0Q6Qc1F TEitrbz5X9EfVbbprZE+P V34EELkJL80nZUcqEXlu7 jscOc3PsPqKHYyNYJ6oRn nDNpsg0NkFLGs Y29s (more content not included)... Normal [facility] Coding Summary. CD:[id number]:[id number] G h0bWw+PGhlYWQ+PM3OWWA cW02vtXOqqQ9MM0kLGO7N ZSKDKYUSPO0EQH5acZW1H YsqY7KudxPq BfygdNDkXZ32FPe9ZCU3l KgtYGlbeL1uzSLkB2w7Rn ErGI60aQ39BBanPIKuYxG 3LjZpbjsgbWFy P1csNuZpgTKjGzl+PHRhY mxlIHdpZHRoPScxMDAlJy MrwQgwYP4fQg4vOGRmUTJ vbGxhcHNlOiBj h0rhIGSsLMwxQH3esKfsZ 1UubGF1RTVwa6f4Mt64mF I+WHJnXAL8dAciJQjls71 2GiYwi7vyEFA4 aFGeLYxjIRF5H44ai7Y9O VZwVAXfPTX9pXU4nH5ibO apidsyK5BgmBIpDtF9LON 5wQOosM6xtVut mrunlO6nIoa+W18UMY0GM PKRYJ6SGia1P3EsAazykZ I+QH19IASbUD05tPGkpAZ bw7stkMi7FpDt HEYrOPR2wOzxDGyrq1BdF QMxG63glKXql8C2BNJlyF ftzILoYtPhgMJ1kF5sYPa mlpldx8tuxehk Ealwz8mmdv51wL09V30rW AxfVAAtHFN3HROmVAIvjS zorf2jpS1kFp3+PJsau0n ra1yfxSo6IrCl NVMhvpWjjMtsJVH2c5RoP s71L3SzuUnqj6QxOnn2aa 13iQPdv4E9hZZ5LPmmISL nuF1sSQlmQsC1 SHXgXcAfsT15cUOiRQdyP o9quNcerOfiQB2sTJGltw ruEKMdfD8rRJSzhDMtxRw cSQ7vBKEdabze t106YyGoJOA2FDAeoCUfF 6AenN4xAeZpCSUhAFLxL4 FegSBsGYcwI992LXgcBzI 3YQLbyzVoU8Cs MZZoeVekMhL1m1P3Jq9Rz 2IkluilIKS6YZrmZAZwMu B5HjYnApI0L9JsSmn9ZKY mgCzmLV6sC4Pu TZZdqghihjvvtFW4BIEjZ LKnkQ72pVBdYMibYg9kx2 J2t026XRSeFTYcdK32Rf7 udDogMTBwdCBU gZ8fyzspf4dyfigxGfFwB PMxFEm8CKu5RTFgeQcpPm CuFBV8LdJ7GKJ0cFNssI7 ooSvbzvzyyR6k Oyc+P51ozW9wMCZ7LLS3z mrpDZSdurRgIH70PK42H5 RyPjwvdGFibGU+PGRpdiB vsSfqBD4uFqJg k1pmr2TuMRzhI1ClZEJpR BjhShc8BQXjAPQ9fEG2yB 8rLNUfOWsil2K9hXR1B0D oqrGczx7xq1bo AESyVUncY13fiTZml5P4M ZLtnJT6CNEtcOvjYsFyqF 93Oyc+ALYblMxhz3HbUak rm5lbc3frvXt0 QiUcCBIrdlWpzMyxUUD7u 1MmTx81J23hKWdjKKImBP PiEGVrAAUunAwwjf1sqS7 wIi8+PGNvbCB3 sTI7nL9gWYWjTbN7RTvlQ 964CaDiwLUmWqabs0irj1 fafHv2PvIpMUGndaMbtHj gWAX4p4NbGc13 Z96eKEuvXUVxLDNfJPRnH CDiyUaspr3lpF9nRk9+PC 0na9rhgk27cV98tEG+PHR jMZP6zUlaLNps GPDxqS9tNEtaRbW5DSCoA kHadP26dMZhJNonAb0saG wdwImtGP2bZJPchjrlp49 2FwVfg0dgMSQh hPZxQNqySVT1O65mn7M0Y CStRZWnOWW2yQU0uZ5hmB lnbjogbGVmdDsgdmVydGl uAJvsLBuzU988 IHRvcDsnPlBhdGllbnQgT tTtTXx9I2OfQqj3TNXomT qxVI9eeCFbGYnvZr3tvZc fkJkvAS4nMEGv dkqzg207DbWzp3gfKMKrc YRsHWldULQ6L02bj9Z7YB BwIFIlBFN0pCF8cQ4yuOw nbjogbGVmdDsg jpWlyVieLZdlVOglT561W HRvcDsnPkJpcnRoIERhdG G0MP67JA54qCLjt0U1yEN 4Z4NtNSKbswhm ksgilWC9TMIjZSVhjC58U k2qeXajNd2mOMOjPUI9XR UwpPIdE3YwdX4pLaCnSZZ zAUTpL8FtpHSc CEduB562HPmbZvT5ERCoa iCfM6OkZSMfbOvwZeV5m6 T7Kv0MC9L9BW20AE52qJR ph7P4zOZ3H3Tk PSMjeditrwpyjRG9OYFzQ MQxwF11Dv4mmBjaGq8nMJ VdZJE2LCYnkMLhD1DuaT0 yOiAjMDAwMDAw U0UzgDUzOEoqZ983JEggT bH9AJOwqnAuP2LtJATidT blCiT4i3K7Wy9QITe3KI9 9ML88eJOsm0V7 vXY3W5MvACZpuvbtwiras FM7WOVgRZSigY13Tp9qfU ldAj7sLWVmTRJ8NCVznUX fQ6LrlG4nQlLa BMGkEXJcY7HdwLCrYRmzT 450KZaoItI4OQXwtaBtD5 JwFBVzzIalGoI2a8E7Kb1 XRPXwUF53QCF7 uNL9IX95GO25Q5FtQinut GFibGU+PHRhYmxlIHdpZH RoPScxMDAlJyBzdHlsZT0 uCy6mZPFrXIHy sUebkGXkWfGle9sbVNTeB ZofEU8rsKmaA6InzWZ6GM Zcy3j6Mw23J63eL6IkkIC +TZGwnRW4oVY5 dP4cJjEgXbV1EAatI412A rEckGOeVlyjq7wdw6sqnI p7IhX0RRJhmtFkrFmmXYY 0y1CwWv80I54q IHdpZHRoPSIxNSUiIHZhb Ejvla6fqD2sPb6+PGNvbC K6pFZ4iP2tFoZbHiD6KOf jA265OwUcbJPk Dxesy1noq5dtaUd8NsQwC XHegaAedBbtPOF9w0KyVq 46Y7NifPmjr9KaXtz7oq1 4yAOga5G1dWX0 V2TsQSNekjrxiDIpfFoaH X5fIUHfrvszWMAisD0pVK YcA9y1XiMiUbV6IJyhD8G mfkJ1DJYiaKBl OTluAOJ5Q49sz9G4XWQwU RLqDQB8kNU1bT2fsQadcb ogbGVmdDsgdmVydGljYWw kPLtfZ758GAGa wWoqQEMpmO1vNNIxgSKgy UjuDJ1rJJQxpvuwOmSXCI VPXEjfYTJBK0WEEDhBFOP gRzwvdGQ+PHRk WGR0ySsjKZmpUTZdaM7mQ AOoY4b9IjNhAmZ6UFbsL6 WwARQyhjbzYd85lQ1lLxW mLpO7DHufA4Hu jlE4EPXieLCpARmnCQY6D 21is1Q8EPEcTZLrGZL2eX I3yO8dnBliaeiagVMivSb gdmVydGljYWwt ECszA158AWSfmQkiUmMrY aT5GxH5TTW2I9DsYfl7GB ImuIzzLB0krPOyAFjdHx5 zkVcmzIwgGV1x WLBbftgeEAXebH9aJNKyc FArrXyjPF1kTVVogcnpn6 04LpSjCLL7TILeaTXyA7H lqT2hXwQlKGAa KAMvL7MlpQJmAMcjZ842L SooJiF1ARIdtbSrK0SlDG GdlUnhLvQ9v6Z6Mk9zYaL ZZWFyczwvdGQ+ VADbDMU2rSgwENgjYNBud F5tZOTnG8p8UhQiXnQ9VL avB7DvQICahezdMa12qS7 xCdAzTjA9ZYsf T1MpbwX6IISdkPQfYWjcN XV3P00cz2N1AXEtBAXkZS D5mGR1kP7ioNtgxmmqeJR mdDsgdmVydGlj IVglOCwjP538UOKxmKvjG kZlbWFsZTwvdGQ+PHRkIH G2lAjsKYylXJNqoT5rNLK wC2k6PjFkNaW6 OAqxG0GsAKJncfveBw11d Y2eVsNnYrF0OHznK6Fkgs Y1WBJjsJDbQOixXPM6B05 iz7H1ISErGELu CZJ6uNU0cB8kdCxfzoywo GVmdDsgdmVydGljYWwtYW jhZ518YBPsfBaeWjRmRFM mYN3tzDdkxGD+ WF00ux50J5SkBhotFxz3X FGnFQM4aRV5eK4tVWKcPN wfu6H6gHV3J9LsznKqdn2 sd7duFUDoWRzc J80pxYJok0Y0IGRaeCO3K NCfjVkbOgJreD38Wle+PG QcuHgpc8JwAtmdy9ztk0b mwEe9IwWeQZBv qvTtvOjqONB3q5OiLk21F 29sIHdpZHRoPSIzMCUiIH QsaWitpk3naM7wVu1+PGN gpAZ0mAX9qP1e RxUjXdB2OPdgD598RoXbc REfCiznn4abg3xevRu8Sm UlFASisrKynNnkVCI0i4P jIw61J8FktQbe j4QzRth5cr93dRAzj9T6o KU2M4NuTKPccdkazVHzfE kdVJ2uUUDmicfnGOPchM2 nMVLnV4e9QyIk JrJ1UQtgK5ZyrkU1EMDyu TFcRMEuwZDVdY2dpttjk4 qlhtkmFdHzZUEuXRy8CZe 0LWFsaWduOiBs XIV7ReB9QRY8yTTfgS2lm DyndtvpxY5hVsd+UGh5c2 zopZCaER0nuXU1OZ69SQ3 6fKGmc0L8oOF9 S5BdFTUxdhsbziglyDS8O FHrRHHgrB30Si0mcEojIa 6jXZPkXMU0GOQegGHzO0S hhS2sXuCaBIXx QIBxH6RpuOAuPQrjB966T AvfKuH1ZMNjurMtH7TxXF JseUbjWhB4g3A2Aa0GPT8 8FJ47VX34aVTi t5H1wUD6D0EoEZTgduuww hkzeBI0HAHbGVDnvT84Xf 1wpNtmFi5pOHFmWZW0FIE lnGIfL6ZhmP0r EiKhTXLeWELwC1XtsPFlC YnmX696JWbbSyY8DAJiwh XwV7YmAEOtxOfoTaQ9n4F 3Am8GLm19AW96 UP47eQHla0N3xEU5P6TkI GBzoeuyjynqkAE1QPKqEB TxgU22Dp7nrZvtXl6aYFZ dHNX1KXDorHNg A7GtmG0dNyQnCSXpONQoR 5NbdUKiNZcfS684OBakZu C5XYVrgkTbE8QtWVSoaHl nRmG4n9S9Os4X ASjcwnf6A1GyTivmwLH+P R46OYAaPC57qEWqeOFtq4 vljOw0HjLsMUHnIAV3yFj wTOphm2YiXBNz Y29s (more content not included)... Normal [facility] Discharge Instructionson Discharge Instructions [id number]# 1.00CD:127 Normal [facility] ED Clinical Summaryon 2022 ED Clinical Summary [place] [id number] ED Clinical Summary Person Information Name: SHABANA ELENACLARISSARADHA Nicky Calista/[facility] Age: 32 Years : 1990 Sex: Female Language: Barbadian PCP: Mark Pitts DO Marital Status: Single Phone: [phone] Visit Id: Visit Reason: Rash; Allergic reaction [...] 09/05/2022 22:58:39 09/05/2022 22:58:39 09/05/2022 22:58:39 ADDRESS: [address] [place] [address] [address] [facility] [place] [id number] PHYS DOC NOTES: MEDICAL INFORMATION: Prescriptions Given: Medications to Continue Taking That Have Changed [facility], [address] [place], [place] [id number], [phone] START: predniSONE (predniSONE 20 mg Tab) 3 [...] Refills: 0. PATIENT EDUCATION INFORMATION: Instructions: Nate, Mqep-ph-Jmlz Follow up: With: Address: When: KATJA MCGINNIS [address] [place] [id number] [employer] (1) In 3 days 09/08/2022 Comments: Follow-up for further evaluation of your urticarial rashes and reactions. With: Address: When: [address] [address] [employer] (1) In 3 days DIAGNOSIS: Allergic reaction; Urticaria Normal [facility] ED Note-Physicianon 09-06-19 ED Note-Physician Basic Information [...] that she has never follow-up with an nail kegger before. Denies any chest pain. Denies any [...] and Complexity of Problems Differential Diagnosis: [] [facility] Data External documents reviewed: [] [...] I do want her to see her nail kegger. Discussed return precautions. Follow-up with your primary [...] Once, # 1 kit(s), Refills(s) 1, Pharmacy: [facility] (more content not included)... Normal [facility] Comment on above: Result Comment: Elec tronically [...] Being allergic to foods such as: ? [place] fruits. ? Milk. ? Eggs. ? Peanuts. [...] at home: Medicines ? Take or apply bzkt-ihb-ddfkjho and prescription medicines only as told by [...] causes your hives. ? Take and apply beik-twj-ayqqfiw and prescription medicines only as told by [...] Reviewed: 01/09/2019 Elsevier Patient Education ? 2019 [employer]. Normal [facility] ED Patient Summaryon 023 ED Patient Summary [address] [address] Patient Discharge Instructions Person Information Name: RJ ELENA Age: 32 Years Arrival Date: 09/05/2022 21:00:52 Discharge Diagnosis: Allergic reaction; Urticaria Primary Care Physician: Mark Pitts DO Provider Information Primary Provider: Quita Clark DO Advanced Homeopathic Doctor:None The exam and treatment you received in the Emergency Department were for an urgent problem and are not intended as complete care. It is important that you follow up with a doctor, nurse practitioner, or physician?s digital sales assistant for ongoing care. If your symptoms [...] Address: When: KATJA MCGINNIS [address], [place] [address] [employer] (1) In 3 days 09/08/2022 Comments: Follow-up for further evaluation of your urticarial rashes and reactions. With: Address: When: Mark Pitts [address] [place] [address] [employer] (1) In 3 days In the event that this physician does not participate in your insurance network, please consult with your insurance company to find a nearby participating provider. Patient Education Materials: Hives, Fzqw-cl-Jang A MESSAGE TO ALL PATIENTS REGARDING OPIOIDS PRESCRIPTION OPIOIDS: WHAT YOU NEED TO KNOW Prescription opioids can be used to help relieve yhucbfeg-bj-vkymqf pain and are often prescribed following a [...] of opioid (more content not included)... Normal [facility] Monitor Recordon 09-06-2022 Monitor Record [id number]# 1.00CD:127 [facility] Consent for Treatmenton 08-11 Consent for Treatment [id number]#1 .00CD:127 [facility] Discharge Instructionson Discharge Instructions [id number]# 1.00CD:127 [facility] ED Clinical Summaryon 2022 ED Clinical Summary [place] [id number] ED Clinical Summary Person Information Name: RJ ELENA Nicky Calista/[facility] Age: 32 Years : 1990 Sex: Female Language: Barbadian PCP: Mark Pitts DO Marital Status: Single Phone: [phone] Visit Id: Visit Reason: Cough; Diarrhea; Fever; [...] 09/04/2022 14:23:43 09/04/2022 14:23:43 09/04/2022 14:23:43 ADDRESS: [address] [place] [address] [address] [facility] [id number] PHYS DOC NOTES: MEDICAL INFORMATION: Prescriptions Given: New Medications [facility], [address] [place], [place] [id number], [phone] brompheniramine/dextr omethorphan/PSE (Bromfed DM oral syrup) 5 [...] Infection, Adult Follow up: With: Address: When: [address] [address] [employer] (1) In 3 days 09/07/2022 Comments: Return to the emergency room if your symptoms get worse or any new symptoms DIAGNOSIS: 1:Upper respiratory infection Normal [facility] ED Note-Physicianon 09-04-19 ED Note-Physician Basic Information [...] and Complexity of Problems Differential Diagnosis: [] [facility] Data External documents reviewed: [] [...] for cold symptoms, 200 mL, Refill(s) 0, [facility], 160, cm, 09/04/22 13:15:00 EST, Height/Length Dosing, 85.6, kg, 09/04/22 13:15:00 EST, Weight Dosing Influenza A&B Ag Rapid COVID Antigen [place] Disposition Plan Patient Discharge Condition Stable Discharge Disposition Discharged home Discharge Prescription List Prescriptions Bromfed DM oral syrup, 5 mL, Oral, QID, PRN Follow-up With When Contact Information Mark Pitts In 3 days 09/07/[address] [place] [address] [facility] (1) Additional Instructions: Return to the [...] 03/08/2019 (more content not included)... Normal [facility] Comment on above: Result Comment: Elec [...] to help relieve symptoms, such as: ? Hvlt-ffd-bovyhed cold medicines. ? Cough suppressants. Coughing is [...] other clear broths. General instructions ? Take uhem-pmx-stvyoyg and prescription medicines only as told by [...] and water are not available, use hand sr. consultant. ? Avoid touching your mouth, face, eyes, [...] common infecti (more content not included)... Normal [facility] ED Patient Summaryon 023 ED Patient Summary [place] [id number] Patient Discharge Instructions Person Information Name: RJ ELENA Age: 32 Years Arrival Date: 09/04/2022 12:56:58 Discharge Diagnosis: 1:Upper respiratory infection Primary Care Physician: Mark Pitts DO Provider Information Primary Provider: Solo Kimble M.D. Advanced Homeopathic Doctor:None The exam and treatment you received in the Emergency Department were for an urgent problem and are not intended as complete care. It is important that you follow up with a doctor, nurse practitioner, or physician?s digital sales assistant for ongoing care. If your symptoms [...] Follow-up Instructions: With: Address: When: Mark Pitts [address] [place] [id number] [employer] (1) In 3 days 09/07/2022 Comments: Return [...] opioids can be used to help relieve ralqujso-dn-ydstde pain and are often prescribed following a [...] care p (more content not included)... Normal [facility] Influenza A&B Agon 3 Influenzae A Ag Negative Normal Negative [facility] Comment on above: Performed By: #### 2 [id number], [id number] #### [facility] [address] [place] [address] Influenzae B Ag Negative Normal Negative [facility] Comment on above: Result Comment: Test sensitivity and specificity vary for age group, specimen type, antigen types, and prevalence of disease. Test results must be evaluated in conjunction with other clinical data available to the physician. Individuals who received nasally administered Influenza A vaccine may have positive test results up to 3 days after vaccination. Performed By: #### 2 [id number], [id number] #### [facility] [address] [place] [address] Prescriptions/Work Noteson 0 2-26-2023 Prescriptions/Work Notes [id number]# 1.00CD:127 Normal [facility] Rapid COVID Antigen ([facility])on 09-04-2022 Rapid COV Int NEG Ctl Pass Normal [facility] Comment on above: Performed By: #### 2 [id number] ####[facility] [address] [place] [address] Rapid COV Int POS Ctl Pass Normal [facility] Comment on above: Performed By: #### 2 [id number], [id number] ####[facility] [address] [place] [address] SARS-CoV+SARS-CoV-2 (COVID-19) Ag IA.rapid Ql (Resp) Not detected Normal Not Detected [facility] Comment on above: Result Comment: [employer] System for Rapid Detection of SARS-CoV-2 [...] or revoked sooner. Performed By: #### 2 [id number], [id number] ####[place] [address] ADMITTED TO INTENSIVE CARE UNIT FOR CONDITION OF INTEREST:FIND:PT: NO Normal [facility] Comment on above: Performed By: #### 2 [id number], [id number] ####[place] [address] EMPLOYED IN A HEALTHCARE SETTING:FIND:PT: NO Normal [facility] Comment on above: Performed By: #### 2 [id number], [id number] ####[place] [address] FIRST TEST FOR CONDITION OF INTEREST:FIND:PT: Unknown Normal [facility] Comment on above: Performed By: #### 2 [id number], [id number] ####[place] [address] HAS SYMPTOMS RELATED TO CONDITION OF INTEREST:FIND:PT: YES Normal [facility] Comment on above: Performed By: #### 2 [id number], [id number] ####[place] [address] HOSPITALIZED FOR CONDITION OF INTEREST:FIND:PT: NO Normal [facility] Comment on above: Performed By: #### 2 [id number], [id number] ####[place] [id number] STATUS:FIND:PT: Unknown Normal [facility] Comment on above: Performed By: #### 2 [id number], [id number] ####[place] [address] [address] [place] [address] RESIDES IN A CONGREGATE CARE SETTING:FIND:PT: NO Normal [facility] Comment on above: Performed By: #### 2 [id number], [id number] ####[facility] [address] [place] [address] Coding Summary.on 07-28-2022 Coding Summary. CD:[id number] G h0bWw+PGhlYWQ+EP5ZBDJ uF89umAJeqS2QA6yTQE3I QGDXIWNHKR5NCC6gtGK3Q GlbZ3KbvwYu YwxisCUuPL54ZOm1YMV0v LqzSDeinY3afNYsZ4v5Np HbXC39zP39VGeqDSYyLxO 3LjZpbjsgbWFy Y2ihBvZwuJVzPya+PHRhY mxlIHdpZHRoPScxMDAlJy TrsXqsLG9jHj2aEWDtRCV vbGxhcHNlOiBj n7vfIXBhOTlbDZ9fwOqzE 1DzyOJ2RBSqz0z3Fr86eM I+SFZjJBX7qQhpFZfei12 7QrEfi2awUCM0 yIXsAUzlITN2E78qx1C0C ABuHYTdOTF7tRS6bW3iwA jenvfiP2ZdmPLqWuK1HZC 8jHPctJ1uiMbj inkusD3jZqz+O89GGB0CS WQEGH6ZIas8F2HuLwwplK I+JV06NHIfWU86iCNvxFC sk7ownLl4HzGz WOOqJMN1lIphQGmew4UvT UMoX73fmAGhr9B4XWEykT fxuURqMxOggKD1rO2wIMp bhrahd6mslpim Hagzc9ggeb20qC93K23rD MyhPDXbMSH4FVInOIComW jvxi6myH2vId9+POekw9x cm9qrhDy8PiZr SBZnyaYcmVgpUBW5n2SgX h17G6FtqLuxn5OqOta1oq 13mCRur2U4iQK4HKxpFVD noC2sWVoxQfF5 POGfUjNyjY94oFKeHFasT q2seTrpcMsuLL6wCELxwd lkCVBqbU5yCIVqmEVpkAu oTJ3tHPGqokka w234JbVeRTE5KDFdjYRpU 2JbpU0eLbCuYXOzPZGaI9 RasFOuOXjhM891ADvfVbK 2GGBtcbPwG2Nj GXFhzVfnInH2s6W8Te3Rl 4WspqhhIGJ4BWvuNFYnUw B4XiGyCkJ6S1NfKre2PBX slSzwTU6mR0Nr EABkuokqpacuqFR1XCHeF UOorE02vOViHUqoLy8lq8 Q8p545XENfMOQykR16Ni8 udDogMTBwdCBU iM5lxmdph9fncjqlYiZaM RZgBRe3QUm1GQGplRrvXn RwYGA7JbS2WFX4nJWqwV7 rrNibifbotJ7s Oyc+S97ieP0dTIJ9PNQ3a slwILRpfdIcJY14LB12Z9 RyPjwvdGFibGU+PGRpdiB gkDvrWN0kHcEh l2qfh5SzTMcgA6LaIULvS MyoRxs2RVUdPEF2iYZ2cH 3vGLKjDVpei6J9aTT9J5P ebeAdri1bf5ia QZJyBSdrE86ocPOny3S4V WTjuQU5JVZjlTujFcAnhC 93Oyc+LAFxwUeeg9VhFfw oa4qnw6komQw1 IsXnKLDkenVtcRywBOU5c 4OjLp55D46gQDmfIQZwSE EkCQSkDTZhpChtpw4sqJ5 wIi8+PGNvbCB3 qEO6wD1uYAOmBtX5SLxmR 129QhHowLOjIxflx6oux4 oyuOw2PwRlAHGrrtKikGb pABE1s5TbKk53 O21zTKwlGLXoSEQsVCOcU MNofRnill3klT8vPf6+PC 7dm7hslm78nQ87gOW+PHR zIQU2vFgtENuo LBQusL8fGPmgZgQ8VSKpA xXprW06qEHrAGpxQj6anR uhmRqbKN3cEEKowlvvs57 8XwNai2fzKINj qJAyICqdJRQ8W02fj2P5E XIlATEjNMB6kPP1oM4vsT lnbjogbGVmdDsgdmVydGl bLLeqJAaoM731 IHRvcDsnPlBhdGllbnQgT yVnQCk8A3YtMki6RDVncV unAJ3zrQXlXRaiZd8geVv ybQumEC1oQCOs hcprh814TcGwd9rdPZMbq EIaNTevGDE7D65nq4F1UN IaVYBaEBH0nSX7hM5daUo nbjogbGVmdDsg cpPfpAnrMWkbCSowG666A HRvcDsnPkJpcnRoIERhdG C6OE49HI36xRUgq4L1xXS 6N0ArKPHngojg sbvfqPJ4MEXhGOVehC79U h6krPtgYf9lANRaZTE9LV JlhOIsI7OyeG7bLdFkUML fUUHcV9WemTWu MEleI923EGjaOwF4FSNay gPwZ9FgEPIvxSyyXkZ7v8 V6Wc1LF4R4EX21PK99dTP pj1N1vRA8I3Wa PLIchmuwjmtrbOJ7FURtO JAsoX87Cf0sjZucFi0zXC TaDPC1BUZdbDBrF0TkcA6 yOiAjMDAwMDAw T8JgnQDdRFpfO892UPqlL lJ7GWUtrnYfA0KqARGibD kfEkE9x4E1Re4VIFu4EN5 5FG13fGQis9R7 uEX5I4FwAVUzpxkrzsvka AD5MUQjRMTulR52Rl5ioX yeAg9dWSRyAYE8VMOhmWA zK0TvpQ9jYkSc NVVmAGMpZ4ErdHWkWXjgD 038HTqxBnX8ESVqugYzY4 WrFECqyErgWoH2b2B3Ye4 HYCXbSQ42NGX6 vZH4PR74HG62Q1HeEoxda GFibGU+PHRhYmxlIHdpZH RoPScxMDAlJyBzdHlsZT0 jZg8gTSTlKGKq aBntqGGjGhWzt8dbCYJnR SaaZV4ukRppA8BbeRX5JX Naa2q6Ma30Q03kH3EiwVF +DKAmbHQ7kDL2 pB9gPkOcUoV0SQxfX460M eDmkQCvGrezg6zyu5cgoA g5EeD7FEYberCbtPdbRQG 4t7MyQz70J16v IHdpZHRoPSIxNSUiIHZhb Qajek3daB2lMa9+PGNvbC B5bCW6vH9pInUwTmX2JQg gA456WnCgcFIa Ngwln6szs7ftnVu0IdAfS IXmjqWsuWphIYE8i1XnXp 08P5ZioMcgc3RnWjx8mg6 1sKWny9P0wTU9 Z1SoFWIccuobjOZccQdbQ G3cWKHiujalIJTydW6gQA NjZ5z7QsQoGpO6GKzzJ8V ociQ9POVeuQZh DZibAJN8E55kk5D0NPSbK UIlFMQ8mTU9qE7svEflsa ogbGVmdDsgdmVydGljYWw vAVlbD880FLLt tVfiJRPbyE2mYDKnlZSvd FbbEM5mHUSfnetyGhACOV JKQPcnTEHHP0YQDLqFSRE gRzwvdGQ+PHRk XNI0sFzpHDfdSJDqhR8rI YXzK4d7AzJkJcB0BNkzJ3 MlAEAgzijsGa81zG5jItO lBmB3RPmyK9As glK6QMFntZLqTAikRLI2K 70kt8G8AZTbKSIlKYX3aM Z4vK7jeVbmxafkmOXxqVk gdmVydGljYWwt NEtoX393LBKomGplSdYbP cX8QxD9VAC9C7WdSum5UV TicNtcAY0owUPhQRdiZw4 jaZhuyEukYG2b HFCgyxcbPIRdyR1aYAVmc GTtgNzaSN0lGATunvnsk1 09RpRkMDC3EFUrtEAwS9L jwP4gAsJnUUCq KFSxH2SskISrNKyoX727N KcvGbJ6UWTmpxTsP5NdCL EavLzjDjD2w8J0Hz4mZwU ZZWFyczwvdGQ+ SMEhDSR6aJnyYPikSBUdj L7bIUOrO0i1HpUjEkB4MV ijV4HnRWFydxslNt33nZ5 sZpBhCjE9NNlh G6HjfoG3SMDpmTUrOVojZ CN8P01lp4U1BGBrOOGoLB Z8hKA2mG5buYjaizkpoUH mdDsgdmVydGlj WZkaIMngE063GPBqtXoyS kZlbWFsZTwvdGQ+PHRkIH Y6aNfhCYitYQLgyP2sGOF zV3x9AmDtBqK7 IJzlL6UqBAOhpgbnMs84d H2jTnSgKoP8KVauF9Acdm B2ELHrkCPxKAnhBTB7R10 ze4L4RYXiOVOe CXO8aVP1gR9oiFnkpbxan GVmdDsgdmVydGljYWwtYW ocO138MVGhdXidRmPkOAJ vFL2xhBcccXG+ EG50qg02V5UsDgraEff7K GUiPXQ2qKF6hS3jOQMiJU lgw0D8kZV1W4CptcPnxd0 qp9waPRNrFXja W57dnHPjo9L9OWBcjDO3J NEjhUrdWaRaiC38Iyw+PG SbhMfco8JyWjthe1qob0w wfFt3TnInHHCh cbKedHnwJRC3t2RaGs23M 29sIHdpZHRoPSIzMCUiIH GqwOlzlx6hxP7sJa2+PGN ziBT4pKD1jG8g VpMdHdB7YMciJ392OiGbz VRbRntai9nev9ivyAv7Vw PmGXEarxNctDtaAZF1w4O eEn08W4UjdNld i6JrVyi9kv79vIEzv4W0a ZM5G8NsUOLhhbozzFUefE upXY6vEITkqozcFEPesK2 wVPLuK9q4QpOp CtQ2BNyrH3ZltyA7JKHey YVnHHGpmCZAfH0uieysq6 xemdnnXhWvXABjJTa4FCn 0LWFsaWduOiBs CGA6VyM5XRE8qLIzvW7lf ZesokvvdG7oJns+UGh5c2 tveEQsUF5okIT6KX13AZ7 7dOZyj6N9cAJ5 R4VeLOTuajorxpttcNL6O JVlCWQzfR08Ym8viOguMg 3lQGHhGUV2YKLcsAUtM4L smS6nRdYfHMIt OWFpB5PlvJFcCBxjP176T YkiSpZ7QQWahrAwH4LcZQ JbuEvzYvC9s9N5It8WUV1 6SZ46OQ23nBAh g8F4tAD1P4MuUFKrqnkgj jlgoRL8QTMkHQPpyL65Bp 9uhEilPg2uLLHdLWJ0XYY jeQWqQ9JvpF7r WdOtELCkMMPsW1AuaKIvS KrhZ346MVpqReE7VYYfqz TpA1AkCLJixBihOvS9f2V 8Ha6SAy64OM44 TA22nFGxo0K3jNJ1O7ZuX KKcfifvhlgtuSB8MLSxOS KuhF60Ps0zxInmJn3vXVU bNQP0ZCCdzVTs E0MzaA0wUtKuDLVlYZGoU 3FriQYlZAlxW552IVefTi J6HKQdbyUdG1XnXDChkDp wFkM1f2W8Xe4L RHhenhp8K4CfGyhnvQW+P Y48FMMtOB60oTYuvWBdp3 qctFq8UeXtWGCcQEP7cXn sKFqir6WaDOWe Y29s (more content not included)... Normal [facility] ED Note-Physicianon 07-28-19 ED Note-Physician Basic Information [...] My Ultrasound interpretation: [] Decision rules/scores evaluated: Blackfoot ankle rule, cannot rule out based on [...] Mark Pitts In 3 days 07/30/[address] [place], [place] [id number] Business (1) Additional Instructions: Patient Education Elastic Bandage and RICE Therapy Ankle Sprain Attestation Patient seen and evaluated by the physician digital sales assistant. Attending physician was present in the emergency department and supervised care. This visit was performed by both the physician and an APC. I performed all aspects of the MDM as documented. This report was transcribed using voice recognition software. Every effort was made to ensure accuracy, however, inadvertently computerized employee adviser mistakes may be present. Appropriate healthcare PPE [...] 1 tab(s (more content not included)... Normal [facility] Comment on above: Result Comment: Elec tronically Signed By: Juan Ott PA-C\.br\Date and Time Signed: 07/27/22 12:06 EST\.br\Electronically Co-Signed By: Saúl Gaspar MD\.br\Date and Time Co-Signed: 07/28/22 07:23 EST Consent for Treatmenton 07-10 Consent for Treatment [id number] .00CD:127 Normal [facility] Discharge Instructionson Discharge Instructions [id number] .00CD:127 Normal [facility] ED Clinical Summaryon 2022 ED Clinical Summary [place] [id number] ED Clinical Summary Person Information Name: RJ ELENA Calista/[facility] Age: 32 Years : 1990 Sex: Female Language: Barbadian PCP: Mark Pitts DO Marital Status: Single Phone: [phone] Visit Id: Visit Reason: Ankle pain-swelling; RIGHT [...] 07/27/2022 11:34:49 AD[address]ESS: [address] [facility] [id number] PHYS DOC NOTES: MEDICAL INFORMATION: Prescriptions Given: [...] Ankle Sprain Follow up: With: Address: When: [place] [id number] Business (7) In 3 days 07/30/2022 DIAGNOSIS: Ankle sprain Normal [facility] ED Patient Education Noteon 07-27-2022 ED Patient [...] your activities and whether you should start qahhp-by-kiojtg exercises for your injury. Ice Ice your [...] 12/16/2002 Document Revised: 03/16/2018 Document Reviewed: 03/16/2018 gumi Patient Education ? 2020 [employer]. Ankle Sprain An ankle sprain is a [...] the cau (more content not included)... Normal [facility] ED Patient Summaryon 023 ED Patient Summary [place] [id number] Patient Discharge Instructions Person Information Name: RJ ELENA Age: 32 Years Arrival Date: 07/27/2022 10:09:44 Discharge Diagnosis: Ankle sprain Primary Care Physician: Mark Pitts DO Provider Information Primary Provider: Advanced Homeopathic Doctor:Juan Ott PA-C The exam and treatment you received in the Emergency Department were for an urgent problem and are not intended as complete care. It is important that you follow up with a doctor, nurse practitioner, or physician?s digital sales assistant for ongoing care. If your symptoms [...] Follow-up Instructions: With: Address: When: Mark Pitts [address] [place], [place] [id number] Business (1) In 3 days 07/30/2022 In the event that this physician does not participate in your insurance network, please consult with your insurance company to find a nearby participating provider. Patient Education Materials: Elastic Bandage and RICE Therapy; Ankle Sprain A MESSAGE TO ALL PATIENTS REGARDING OPIOIDS PRESCRIPTION OPIOIDS: WHAT YOU NEED TO KNOW Prescription opioids can be used to help relieve syxhczat-gi-ocapig pain and are often prescribed following a [...] be struggling with addiction, tell your health early breastfeeding care specialist and ask for guidance or call SAM[employer]?S National Helpline at 2-928-346-HELP. v Source: (more content not included)... [facility] Prescriptions/Work Noteson 0 07-27-2022 Prescriptions/Work Notes [id number] .[id number]:127 [facility] XR Ankle 3+ Views Righton [...] V. Transcribed by: ESTEVAN Technologist: CHARLOTTE Márquez [facility] Coding Summary.on 04-18-2022 Coding Summary. CD:[id number] G h0bWw+PGhlYWQ+RN5RKTR hA50sbFVtoP5FF5zLVA5W AOLZULLXBH7UVN5bsHA2K NqoL2YyieLu SdobbLOrWV31VXb4UPP8c OuuSHwqpT8pvYPcH3p8Dg YsBK78bE76RVytQZBvLsO 3LjZpbjsgbWFy P5mzWfMckUCfZbd+PHRhY mxlIHdpZHRoPScxMDAlJy MnrJszNX9aNf5oYPYfRRJ vbGxhcHNlOiBj m2etQDRmTNgwOS7bqYjnH 6ZbtRW1BNTwu5i7Ga63iZ I+IPWeSJN6sXzsSJoga35 0JsCjb4poPYM5 hAHiQKinJYZ6S12bf4H4P BEjGXZlCNC4tRK5jI1xqK krmuhjB6KclNCnHkI4JXR 4cTCtgG4psDne ujcusG3rUhd+T04CTL3IO ZTYTV3TPfp7M1KiRenliX I+PJ64QKQsDN87iKNofLS nh8xlaXq8PqPa HVSvRHW0zPpvUMhkz3EnO XLvZ97bkFUei9Z7MKAsrP rduAQyQtNfdJY0fH6nBEs taheju2fzcywf Vtogc1xsss16kX95R75zA NmlPMUmFAM8BHVsZHFuuY ydjo3siB8eOr2+WCeuc8s xu6ugyCz1XhOq HHVldhKuyRcnYRQ4g8RtH j51D9JwqEmkw0IuVox1xq 13uEKgl2Q8pHL9YUalKJX pcG4oCTtqXhB8 EOTjXdVzqA40mPReQBvzK h5puOkznOnwRB3jCPLjyk vhJAQjxN0aURGbhVAbnGe wNR7fPMBslzic i543ExBiHUN4THDtkSAdX 2TlvD6zBzUpOIMcFFDrV8 KrlHQhUNsuS127DXcaTjT 5DESlhqQyI6Kn FUNbqGvnDxL3z5U9Nd4Mg 7FclbsyISV0SJkwXMPzPe LbQiQrTqP7W8RvZnx4CQJ vjBtxWG2oQ1Jr OFMekoetpypscAD9QWWaC UYwtA58bIGjFGeuKt3vt0 X9i727CNFjWYDhaF31Ba3 udDogMTBwdCBU eQ4ynkrgn5yquksjYwKdW XSqTTp5KMp4SSEqbTowFu SrVUY7QhG5OZR8wTPevF0 omRtbwnabjQ0n Oyc+S45seQ5qYBX5DVE5x gspDLCbakPnJK72QG52J6 RyPjwvdGFibGU+PGRpdiB baEsmVN2uAhVi n8ayd6WmJOkiK8DyJDRtN TyjXto6XCAwNYR9bZI1cG 2qWQNnDZuvl1P2kAI6Q4I lgdUzrd1de0wu JUMgTMxpU97jkBDzh3R7C HLcrZR9TFPcdQhmDdMqpB 93Oyc+OUPtjQmxq3BlIvb tc7ojt8kusAn1 QmJhXHIjfgBwzMzjYZR4v 9UuOu70E25uQOgbAZBaON EtQHMsONCaaWpbhq6exJ3 wIi8+PGNvbCB3 jJW5sG3nFVHxYyK3QKpkF 702ZuPvqYBeVsixk8kuq5 temKd0AfLfVXFifdUpxNy yDSZ5j3JsKh11 B14vFWprGWGfXYNhYUNbR EOstGxksz8ozM1yVs4+PC 3hf0mbxz66lA75wYU+PHR tCQH5sXukAMas RLYkwZ7hQSlkOsJ3XWGlT pWyoL25vLNkJOybVt2vaX gheOqgTV7bVAVmpyhgv00 4KbYeu5wcKGJy uQMpAZptAAH5G40wj1V3E RChYNPgKWA9sXQ1hE2lpA lnbjogbGVmdDsgdmVydGl cLIttUJebM742 IHRvcDsnPlBhdGllbnQgT mLoWEg0H6BeDjx3ZYIprD swJF5ltFDrNNnjBn8nmJi tgNtaPF2xYYMz kfffj437TkCbh5iyGJMcf ZQlOLmlHKH6O33gj1A2GD MjVWWjEDS4rKY1nO1mvOh nbjogbGVmdDsg uqKziCxhYKuiOEuxV697B HRvcDsnPkJpcnRoIERhdG D5LH48IC23bILhr0U0gBJ 6P2NrBHBeyedj enaqmWN5GIFjEZVvkA71S m7dhVgqJr8oDJTsVUJ7IB PweKYkF6CpfP8yLvGtRWL bARQsQ8FkiTOl YOjiF918EOemFwN9BTZwo jVhD3OlLLCshAunHbE3a3 E9Jp6HZ5I3HR53NJ31eIF wy7C2aUY1V2Fx MSFrsehwshjdhRT4UIOdZ RNpkA91Yp2zzVurWk2mPU JdANI3HSAkeUAgP9BzmD1 yOiAjMDAwMDAw Z5NbeVGxEHjhB286AZznQ dG6MOBtczViE4HdOSHrlU pbHxP3d0Q5Vz5CRLh1GY0 7EW18kVOda1X6 qBJ2Q5CmLVOegnpengxma SW8NLYmAYAlvU50Hb7roN dlMq7mDPEqSSS5OWUyoBG eI4SlcY3zSbWl OIPaFNZyK4LryASlCCmpA 535VRkpBkD3KWDaumIbP9 TrPAOfnCtsDdI4s0D9Pj2 HALYlPF12LSY2 iAX4UA73HF77E6UaUozxt GFibGU+PHRhYmxlIHdpZH RoPScxMDAlJyBzdHlsZT0 gQh3xSMVtJIMi lUxwpPRdOvRhr7uvCIPiL KwhXP2hvBzwT7GisPG7VT Lfr9q1Ta82P34wV3BgtZA +LMHzsTU4dAK6 eY0yNkObLmP6HPkcA782T dQraRLtGxkgn5flw4sgxK c0XnX2BBYlqgKbjMooOIO 8l7EtNy07F26w IHdpZHRoPSIxNSUiIHZhb Cuqkx6tuQ0mYd2+PGNvbC K6rGO3vZ8rOaMdRjX3XLy cR122BwGsnVPc Ragij4jqs0vybPy3QkEsU LMcruGegTfoUJX4g0HdSs 61Z5UygXpiy1YhGah6ga6 7kCXet3Z2sBB8 M4UaBGEmqjgeuKKlqAuuP R2hCQLjhjtgDRAakQ7fKL FeM9t3IfBzJtW5ULitS8D wifB9KRDxpRSi UMmtSDU5R87jh1S6LEUrD EAtEJM4iYT8lS3bxQyxbn ogbGVmdDsgdmVydGljYWw sBXjhK735ZAQn gYtrWWQfrY9dNQViiQMmd NziXR6lESMidsszEbFHSF UMNLmmXQXUP8TEETzMLTI gRzwvdGQ+PHRk ZIS3yTdzPQoyAXEnzZ3mN TDoG9l1UbPbOjL8VGluJ4 TcTYThobcjKi96sL4cYyU qWdC4PJlxV9Ta gaU7LWYbrZKyTFblOMM5L 56um2S9JKFaZKIpSWF6fO J8sX9znWwuzbdkzPSmpMk gdmVydGljYWwt SArlU702FDMhpAzeFfRqA hL0SaP7UPJ0B8FvUsy2ZL BynDtsVI6csWKeXQmlBv0 trPrkvSqaQB6v AVWuxsmiFTGatX9oLWGwo FVtrBkoKK2vOGTpguqfl3 52VcJeIHV0WNSvgYCwN9N vkN7hAvAeLVZk WHCjZ0CvzDSrYAneJ898W TfpCtY3TNLubbReL0NbET PfzCecWnY0v7R2Nd7mYzR ZZWFyczwvdGQ+ ZWGrXPK5eSvpVZjbGFCev K4rRBWvT8w9UrAfSwT0LO wqD7SvERGucdvoSp91zM5 mPiAnUoF9MPiz C7OujgD9WEVxwFQnPBjnM JN3Q69de3T9GXKuJMEhTZ D6cEU2mY8uaFqizecsnJE mdDsgdmVydGlj YOomPUtuO536FBOocGcsM kZlbWFsZTwvdGQ+PHRkIH K2sQqbSZilINPerB6sYCO xY3x4OnCgXnH4 NXvgW9QtNDGehxnoOa55s A8uJrIkMkN4OIsmZ5Eygq D6NGClsWSuTTrpVLA4L01 nc3U2ESBbGUAx OZY8aHA9hF6xzZjkavdxz GVmdDsgdmVydGljYWwtYW tpF040YOLzsJzjIdQsQOJ dOD0htCsjhCU+ KA40wc20G9IwCwjxGnu0I LKaKTJ8dPD3oJ5dLFZtGO zhw5L5yKJ3W3CckcDbvd7 bn9hrJNBhHGnr K03kzYSgj5B2FGStcPJ5X IOfkAaoTdPxlR76Uuo+PG ThwHxpj1MnAuxvo8vuf1n eeCg2XsYnNAQe dnUwfHnhSRR9y7StQg58S 29sIHdpZHRoPSIzMCUiIH HuyQpmdr4shU0aDw5+PGN qrEQ9eBK6xN5h ZaGoHzT0NJbrK073HxFmn RKlMbabe8mxu1exrGr0Bs PyRUFrpuGkmZysKVR6e0V oNa29G9TwsGmm w3HrNzq8fd86bXHxt9K1p ZW1P2AnEGLmzpajaVAslY waJI8eJOPvivebHZIolM3 oZOPzA1r5GbIt RcM4EAgdP8NavqN9PCBbx VQnBVMudKWFhR9jxwtzo3 zcdovoAgSoPJViJBp8ZPh 0LWFsaWduOiBs SHI0BpB4NZQ9aPAddN2fz CwmpyzxpL4dWyj+UGh5c2 fxuQGlRE7npCR0YF42YV8 4sQRku7Q8lVW5 B7QsPWFydvvdmmvydUS6C IUjDSBrlF68Su3xiKwqNf 6aVHVxHRC0XDJnmPOtA4W yuD2zQfNiKVXj LYIoI2YcpLJhHZeqP766L GvjDvO5HCUmvbObU5QlWB JgdWnaYeC1z5F1Qy9YBS1 8UL89AQ55xVHm p0U1rDH4W9KiRXIquqikn basrFU3OBZlZDFwoR17Ey 5nvAqoRi1eXWPmFKF5WLC scKVkT2TezR7r HfGoOSOfHNTvC6NgwASbB FyeG540LDnhNhO9TYWqec VdD8NxIAXgqYbyJzJ5h6O 7Pf9GNl05AY86 VW28cVDmn7H5cGF5W9GaB WOppcbulnazzJU1ARZrJS JjlK27Hk5cgXyfAv4gHYV tKIZ4VXIyiPLc Z6YvtC8gHsBwKGDeFWXmG 7WztEEsKZhgK240LWfiIe A8HQPrsxJnM4ZeKWTgkPm hExI0l0E8Oj2T HCuicho9S4FmPmoscTB+P L86DLCcFP93dXYkhQNnu8 sroVb1GtFeHAHnVTO8uYa sCAbsb5OqUJSa Y29s (more content not included)... Normal [facility] Coding Summary. CD:[id number]:0220013W G h0bWw+PGhlYWQ+FZ4ZCPL uL38xvLYeuS1VJ3sUPH6N ATARDFQEQN1OVE0aqXB5H UmiO0GtpbCa XgvsoWLsIZ53TDg0JKV1t BdzFDpttM1yiUHzW2k2Un PiGG47zI89AOzgAXYfMcR 3LjZpbjsgbWFy A5wfQgSooINsLjv+PHRhY mxlIHdpZHRoPScxMDAlJy HxiJnvHL0bAp0iFKVjMXS vbGxhcHNlOiBj p1zuRYJlHBvpTU3rdPewA 1WhhAB2NBUup7z1Br88eA I+JOEkDWJ1wDuoFIyih57 2JmHxz5vfTTZ7 vHZkHFcaVLR2E40iw6R2I TVtMDWyFRX4iPZ4lB8qzZ iygafqK2NowMRqKoT7POD 1rGWvrK6fzZgc cspstG8gIjk+P98FFE3JP TBZOE8UUfi5R4AoAbajqD I+VX31GQBkYS84rMJjiLD fh2cihNo1HeLv DGFkINU0tVmkTVzic0QdA ADiK86roVBuj7T1LMIojG igeHZiLsSnuFN5lU9xXFw gfapng7ufoqzc Pzddc4objh44fI62I78xF UrsVBDuHFK6UJOgUSRsaE efml9jdD2nOo3+DOgcs3k ja0mlvPa7ZtOe XEMjaxQxuDskRTE7o5FdI k67Z1LepDvhv8VcQgi5hp 18uAYtd0U5wAH8SRmvQBJ eyE4qBGpyXwD3 QFPcVvQneK36zIShVAzkO y2teYppnUrsHW8bSXWtff leFXYogV2bWBKmdYVucSl kGP1zAKDsroqt z516IgPrOIR4OXQroNNoW 0UilB9nAuTfHXLeVRCiT3 ZvlYZqIRfwW662OWfqKcO 9TMFffdRnS0Rx TREmaLvhGgI5l4D6Pw7Xb 6SbbtfaPJO9DOpbQPTuZg NvBvVdCaT2H2CvGwi8CAM qlVkgTB6kW8Dh JQJwdseycmezgNH6JDFrP JPoyG83sIEfQRivPq8jp4 K2s635RAFeKOXufB95Vw7 udDogMTBwdCBU tW1uamstq2rzuzleAcLuH XVnQEd8BVg3XKHwmVzzYb TcUZD1UsJ2DJJ7ySOcaL6 mlBnfsdpoeH6g Oyc+G30rcL9mPWE6NTN2e cvrEYGqvjDhAR11WX49Q1 RyPjwvdGFibGU+PGRpdiB cfYzrFX2gHiZp n2ath8GaRNmeU4JxKNDlR QqcVhr4KPHsADQ2rDB4pX 1kLVUhJPutz7W8qFT2D5U aesKhzy0hy3mj UZPyMFesH58wyJPfa9Y5D GSlsMI0PMExwHotVeYczU 93Oyc+WIVgiFxoj1JxWxn he2dgs1cciFf4 MwYrTVPrdxVscSajLJI2k 0UdAa73M88qOLfbITEdVE QhMBEyQOGoeUdton3xvO8 wIi8+PGNvbCB3 jSB8yS9tMGMfBgX9HGwxY 210NsGnqFXfMibqp7elj4 myzQv1ZyHbIPZtowQpvXw uAPP0y5OfVb78 F88pOXgxNRKhYLLfAPJgL LMwbRmnlw6tdN3lRj7+PC 8lm2yyfh37rL89vNW+PHR lMBN2iKczYYsc DTWtjX3pBVfgOsU6ULVfP iGbrG48nMMeTLisIy9pfS thrBmoDR3lPTUidjfvp50 8WaMqa3ncAEWz bARmMSejQFM7F02is5R6K KDiDEXqBUW9uBA4pN5htO lnbjogbGVmdDsgdmVydGl pZAqsVIjaI457 IHRvcDsnPlBhdGllbnQgT vDyHKt4B7RjEvk0SZKnoH drJG7djNFyFVjgFz5lpMx gyShzNW7pBFEn ncuie848RkNbe4suEPHtb POpNQftBBZ6O53jh0A7VI RaAKLnZEU0xHK9qO9csWu nbjogbGVmdDsg hlUnxCbiCUfoVZuyO592P HRvcDsnPkJpcnRoIERhdG F4JI42CW09sUJuu9U1mKL 5C7KsIEXgtujb lrassRS9GDNvDRZxjO67S t3afEsqWf4oPNZvQRP7HZ YbeCNhN7BlsA2bWmZjLVB sJFHqI3GuyLLo ZJksM727SKhoYyH4IGEfw bKgW0QhXSBiqReeWhV6n1 W0Yr7XM7Y8MR12JK33wSN nn7X9bXJ7D1Vl DRWfyzatnwmtgDA0LKAhZ YEruS59Bo0scEbsKh6vSR VsAPI7LCAovRAlA9JvmU3 yOiAjMDAwMDAw T1GeoTYuAKifF723YIshU bN4QUCzvuRhP5XoEITikP liReI6b7F4Nr2MHDw2PA5 9PP32rKBsr6Q9 lDR3D3FwMFJvnudszfnjz QQ9FRLjZJLxkI41Ay7oaA gsBd9lJZDgZGF7ILDgxSC rU0LqqR1bAyBr RIGvIVCmJ1TloYSrXTdxA 041KSioTbF4SDHwsjEzB3 DwRQAioRueOcQ0y9T9Qc8 NLRYeDH30FTT8 sEG7DD07BD90B7BfBsdoz GFibGU+PHRhYmxlIHdpZH RoPScxMDAlJyBzdHlsZT0 mQh7rZACcRINl gVzgdHGlQlTrw3ukFDEmV IfnRD8bqBfqR6KgpFR2UW Nmw3o3Rb93R84wL8GcmCZ +LNIlxSJ8uVS0 oR4zRqShBhO3VPduO762O vRjzIMpOduro1vyo4afhP t6KjO6QESrutStaXyqHYL 3e8ViSu44B83l IHdpZHRoPSIxNSUiIHZhb Uwyql1huE5cAw3+PGNvbC G2dBU7hZ1qSpWeMyI9GRz qS039NrUdcJHp Jgtul3nnl7piuMp9DpEyU KLijpEkyBwtBTQ2y8UnIz 11L9PqqWeuh4EfGol5ls6 4aJGxn9A6xGV1 T8VfGTFcawdfzIDikEtfU P0cTIVxwasiDLLbnE4sCA AiV1l3IoRcJgC3DAbjS2H czyB8ODOziNFr LUalWPF0B65nt4I1ZFJnR RMxVZE6lSE2lE4ivLbtts ogbGVmdDsgdmVydGljYWw sTTuuW410UULk rCgqTGVgqV6bUQRgkEHea WwyWY5zKMZdewxeDeTKQF GYEFvoFKSOB9OBHBxKKFK gRzwvdGQ+PHRk SBC3kPxzSIqmZFBnrA2rQ EYxN3d3ToTrTxH1DSomJ3 QiQMDaghqqFj53oK6kDoJ bKcB5XEtjS8Cg cwJ0AXFgqLUnHKonNWU2I 77qd1D0YMIoHKOpPED1gE V3bB4liVpnmkaxtNNbtKj gdmVydGljYWwt JTtvX605HEAkqYbiJzNiK rM1HgL0XAE0Y6UfWih6BD YonVpmSR1mpINdKTepTh4 uvMingSnuXW7g SQPsyizhNCMgyL2iOJKzz RYgrNxqIY3zHORcokyni6 20KmOoBQF5QZPwaCZhJ2T neP0eGiGcTOOe KYTaT3LytGTiXRevY864L TzxJkU6EFYlkpZyR5AxAT BjuBfoZoR6b0A0Ov7pNmC ZZWFyczwvdGQ+ DLHxFDI9gHxhILrdCCImn Z1lFSRsB9j5BvFcWrH5FX qfW4LnKDPiuoilEy07oJ3 dTbYzFlU6NCvs F9FegaC1LBBqiXAiCDahS MY3L75fw5C0IUCbFWIbAR K0nMZ8rO9anZwfipqcmVS mdDsgdmVydGlj PWeaFJqjT383HZAoaXjpC kZlbWFsZTwvdGQ+PHRkIH S3oXlbMGgjQNSrwC1zEIX oO8y5VdPdArI2 WJmdN8PwTCIrojqlQr50h L5rEeDtLyX1ZCikT6Wagt D8OZPvnKJaDRmhNEC3T82 yz7V1ZRDrRCYx AWF7fRI2iJ8euQwuldvoz GVmdDsgdmVydGljYWwtYW jtZ032GOIrxIiuDwIzEYQ ySR0pfJgxpCJ+ FZ71oy70C2MvMifqYrm0E JQaABD8bZC0pB6lLJIdBU aoa8W5pDR2C6VgfuKwqk9 lk9evLNDaPUsj D28ggKZwa6D9WVPiiDV6W UBrrOuaBsIhlK55Rkj+PG NyaXdzw5AfWzicg0abi2i qyOl9RwSjMZBc mrLjmQkyQNM8j8KpWz18A 29sIHdpZHRoPSIzMCUiIH DqnCgszr0myA9rZp8+PGN cmQY8wGH8tO9v MaWqGgZ8LPtiR421VjRvx TQxWrevp4mkh4valIi1Da SxTBQtaiGsbKwmZAZ4j0W zVb11H1ZnqLim y5OtCzu3xy47mDUfd7R9a NW8Q6QdVPKkljqmsWSndR pkMD0qPGZzaubnEOEboZ2 aCYZeQ2s5NhBo MsI4HUbzZ3LhozR3QHXjb WInFDRqoKRHzR7kllaah3 lujlwaHtLhJCKuSLb4FMt 0LWFsaWduOiBs NXU7CfG0FWY1zDDalO8ro HbtzfdufT4xTnl+UGh5c2 xwaDFnIV9nxNG5VS31GS0 0cWRyb4K2wMV8 B7CmVMQbtlfyngzzqHX3F LKpPNIwgZ83Yq1iyRplCt 7vYKGuFGP1CBUfdVTkJ4A clC1aSdAsMBZh TYJiW0QzrHUmCVnqO985J WkjRyR4NMQclpGwL4WvNI AuaQfdJbK1d2V8Rh6WYF8 9AQ18GS96cOCp e9Z0xMZ7G3DfAVFqadgtq qrsnUD5USZuDOOreI30Xy 0cwBvbVn9eTPUtSOD7JWN nlYXlN0QfeV8i BiFpIOKaQFSpT4VvbBOuO RhkY281UVuuDrL2ZGTkbd QeM7AyULEsxRotTjQ0r4G 5Mo1KBk83HC43 KR83lGRti8J5gMX4H5ReI IHtbeotmohmsXD8QTEcXG RipG91Nu8xnXfxTf9tBHN jUYH8CWKigCHy P7WteI7sHxNhOQWuNXQzC 1IffOLhAVaaP777KTwbZn A7YUDzunEzL7DlIRTzgEk xLeU0w1H6Fq8K HYpocrs5K7GqXzfytLS+P I25TLWzYZ62gPFeyZAfy0 dkuAt9CsBtNSRbZPQ7zNc pUYfxg1UjQHUn Y29s (more content not included)... Normal [facility] ED Note-Physicianon 04-16-20 ED Note-Physician Basic Information Time Seen: Robinson Galvan PA-C 04/14/2022 14:53 Chief Complaint pt c/o allergic reaction to possibly motrin. pt was having swelling and redness in the face and tongue. ppt c/o sob. 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 History of Present Illness 31-year-old female [...] Daily Follow-up With When Contact Information Mark Nelson In 3 days 04/17/2022 EDT [address] Business (1) Additional Instructions: Patient Education Anaphylactic Reaction, Adult Attestation Patient seen (more content not included)... Normal [facility] Comment on above: Result Comment: Elec tronically Signed By: Robinson Galvan PA-C\.br\Date and Time Signed: 04/14/22 18:33 EDT\.br\Electronically Co-Signed By: Saúl Gaspar MD\.br\Date and Time Co-Signed: 04/15/22 23:22 EDT Consent for Treatmenton Consent for Treatment [id number] .00CD:127 Normal [facility] Discharge Instructionson Discharge Instructions [id number]# 1.00CD:127 [facility] ED Clinical Summaryon 2021 ED Clinical Summary [place] [id number] ED Clinical Summary Person Information Name: RJ ELENA Calista/[facility] Age: 31 Years : 1990 Sex: Female Language: Barbadian PCP: Mark Pitts DO Marital Status: Single Phone: [phone] Visit Id: Visit Reason: Allergic reaction - [...] 04/14/2022 19:42:49 04/14/2022 19:42:49 04/14/2022 19:42:49 ADDRESS: [address] [place] [id number] PHYS DOC NOTES: MEDICAL INFORMATION: Prescriptions Given: New Medications [facility] 1986, [address] [place], [place] [id number], [phone] epinephrine (EpiPen 2-Ze 0.3 mg injectable kit) 1 Each Intramuscular As Directed. May substitute for another brand if required by insurance or inventory. Refills: 0. famotidine (Pepcid 40 mg Tab) 1 Tablets By Mouth once a day (at bedtime) for 7 Days. Refills: 0. Medications to Continue Taking That Have Changed [facility] 1986, [address] [place] [id number], [phone] START: predniSONE (predniSONE 20 mg Tab) 3 [...] Reaction, Adult Follow up: With: Address: When: [address] [address] Business (1) In 3 days 04/17/2022 DIAGNOSIS: 1:Anaphylaxis Normal [facility] ED Patient Education Noteon 04-14-2022 ED Patient [...] Symptoms of anaphylaxis may include: ? 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 This may include redness. [...] have hives or rash: ? Use an aroh-ggo-khpjrzq antihistamine as told by your health care provider. ? Apply cold, wet cloths (cold compresses) to your skin or take baths or showers in cool water. Avoid hot water. ? Take rqhj-qby-jotzlwb and prescription medicines only as told by your health care provider. ? Tell all your health care providers that you have an allergy. ? Keep all follow-up visits as told by your health care provider. This is important. How is this prevented? ? Avoid allergens that have caused an anaphylactic reaction in the past. ? When you are at a restaurant, tell your process server that you have an allergy. If you are not sure whether a menu item contains an ingredient that you are allergic to, ask your process server. Where to find more information ? Moldovan [...] medicine s (more content not included)... Normal [facility] ED Patient Summaryon 022 ED Patient Summary [place] [id number] Patient Discharge Instructions Person Information Name: RJ ELENA Age: 31 Years Arrival Date: 04/14/2022 14:45:02 Discharge Diagnosis: 1:Anaphylaxis Primary Care Physician: Mark Pitts DO Provider Information Primary Provider: Saúl Gaspar MD Advanced Homeopathic Doctor:Robinson Galvan PA-C The exam and treatment you received in the Emergency Department were for an urgent problem and are not intended as complete care. It is important that you follow up with a doctor, nurse practitioner, or physician?s digital sales assistant for ongoing care. If your symptoms [...] Follow-up Instructions: With: Address: When: Mark Pitts [address] [place] [address] [facility] () In 3 days 04/17/2022 In the event that this physician does not participate in your insurance network, please consult with your insurance company to find a nearby participating provider. Patient Education Materials: Anaphylactic Reaction, Adult A MESSAGE TO ALL PATIENTS REGARDING OPIOIDS PRESCRIPTION OPIOIDS: WHAT YOU NEED TO KNOW Prescription opioids can be used to help relieve wlubhfpd-gh-gernji pain and are often prescribed following a [...] be struggling with addiction, tell your health early breastfeeding care specialist and ask for guidance or call SAMHSA?S National Helpline at 5-331-272-HELP. v Source (more content not included)... Normal [facility] Covid-19 PCR (CVDTBH)on SARS-CoV-2 (COVID-19) RNA YARELY+probe Ql (Unsp spec) Detected Critically abnormal NOT DETECTED [facility] Comment on above: Result Comment: This test is not yet approved or cleared by the [place] FDA. When there are no FDA-approved or cleared tests available, and other criteria are met, FDA can make tests available under an emergency access mechanism called an Emergency Use Authorization (EUA). The EUA for this test is supported by the [place] of Health and Human Service's (HHS's) declaration [...] used). Performed By: #### C VDTB #### [facility] [address] [place] [address] Dr. Tj Wild CBC AUTO DIFFon 07-05-2021 BASO # 0.0 103/ul Normal 0.0-0.1 [facility] Comment on above: Performed By: #### C BC #### [facility] [address] [place] [address] Dr. Tj Wild Basophils/100 WBC (Bld) 0.1 % Critically low 0.2-2.0 [facility] Comment on above: Performed By: #### C BC #### [facility] [address] [place] [address] Dr. Tj Wild EO # 0.0 103/ul Normal 0.0-0.7 [facility] Comment on above: Performed By: #### C BC #### [facility] [address] [place] [address] Dr. Tj Wild Eosinophils/100 WBC (Bld) 0.0 % Critically low 0.9-7.0 [facility] Comment on above: Performed By: #### C BC #### [facility] [address] [place] [address] Dr. Tj Wild Erythrocyte distribution width (RBC) [Ratio] 17.2 % Critically high 11.0-15.0 [facility] Comment on above: Performed By: #### C BC #### [facility] [address] [place] [address] Dr. Tj Wild Hematocrit (Bld) [Volume fraction] 36.3 % Normal 36.0-48.0 [facility] Comment on above: Performed By: #### C BC #### [facility] [address] [place] [address] Dr. Tj Wild Hemoglobin (Bld) [Mass/Vol] 12.3 g/dL Normal 12.0-16.0 [facility] Comment on above: Performed By: #### C BC #### [facility] [address] [place] [address] Dr. Tj Wild IG # 0.08 10e3/ul Critically high 0.00-0.03 [facility] Comment on above: Performed By: #### C BC #### [facility] [address] [place] [address] Dr. Tj Wild IG % 0.5 % Normal 0.0-0.5 [facility] Comment on above: Performed By: #### C BC #### [facility] [address] [place] [address] Dr. Tj Wild LYMPH # 2.2 103/ul Normal 1.2-3.8 [facility] Comment on above: Performed By: #### C BC #### [facility] [address] [place] [address] Dr. Tj Wild Lymphocytes/100 WBC (Bld) 13.8 % Critically low 20.5-60.0 [facility] Comment on above: Performed By: #### C BC #### [facility] [address] [place] [address] Dr. Tj Wild MANUAL DIFF REQ NO Normal [facility] Comment on above: Performed By: #### C BC #### [facility] [address] [place] [address] Dr. Tj Wild MCH (RBC) [Entitic mass] 26.6 pg Critically low 26.7-34.0 [facility] Comment on above: Performed By: #### C BC #### [facility] [address] [address] [address] Tj Wild MCHC (RBC) [Mass/Vol] 33.9 g/dL Normal 29.9-35.2 [facility] Comment on above: Performed By: #### C BC #### [facility] [address] [address] [address] Tj Wild MCV (RBC) [Entitic vol] 78.4 fL Critically low 81.0-99.0 [facility] Comment on above: Performed By: #### C BC #### [facility] [address] [address] [address] Tj Wild MONO # 0.7 103/ul Normal 0.3-0.8 [facility] Comment on above: Performed By: #### C BC #### [facility] [address] [address] [address] Tj Wild Monocytes/100 WBC (Bld) 4.6 % Normal 1.7-12.0 [facility] Comment on above: Performed By: #### C BC #### [facility] [address] [address] [address] Tj Wild NEUT # 12.9 103/ul Critically high 1.4-6.5 [facility] Comment on above: Performed By: #### C BC #### [facility] [address] [address] [address] Tj Wild Neutrophils/100 WBC (Bld) 81.0 % Critically high 43.0-75.0 [facility] Comment on above: Performed By: #### C BC #### [facility] [address] [address] [address] Tj Wild Platelet mean volume (Bld) [Entitic vol] 10.3 fL Normal 9.5-13.5 [facility] Comment on above: Performed By: #### C BC #### [facility] [address] [address] [address] Tj Wild PLT 254 103/ul Normal 150-450 [facility] Comment on above: Performed By: #### C BC #### [facility] [address] [place] [address] Dr. Tj Wild RBC 4.63 106/ul Normal 4.20-5.40 [facility] Comment on above: Performed By: #### C BC #### [facility] [address] [place] [address] Dr. Tj Wild WBC 16.0 103/ul Critically high 4.0-11.0 [facility] Comment on above: Performed By: #### C BC #### [facility] [address] [place] [address] Dr. Tj Wild Covid-19 PCR (CVDTBH)on 06-10 SARS-CoV-2 (COVID-19) RNA YARELY+probe Ql (Unsp spec) Not detected Normal NOT DETECTED [facility] Comment on above: Result Comment: When [...] for this test is supported by the [place] Worker of Health and Human Service's declaration that [...] used). Performed By: #### C VDTBH #### [facility] [address] [place] [address] Dr. Tj Wild D-DIMERon 07-05-2021 D-DIMER 6.07 mg/L FEU Critically high 0.19-0.50 [facility] Comment on above: Performed By: #### D DIM #### [facility] [address] [place] [address] Dr. Tj Wild D-DIMER COMMENTS SEE BELOW Normal [facility] Comment on above: Result Comment: Incr [...] hospitalization. Performed By: #### D DIM #### [facility] [address] [place] [address] Dr. Tj Wild PREG HCG QUALon 07-05-2021 , QUAL Negative Normal NEGATIVE [facility] Comment on above: Performed By: #### P REG #### [facility] [address] [place] [address] Dr. Tj Wild PROF 14(COMP METB)on 021 Albumin [Mass/Vol] 3.5 g/dL Normal 3.5-5.0 [facility] Comment on above: Performed By: #### H STROPN, CMP #### [facility] [address] [place] [address] Dr. Tj Wild Albumin/Globulin [Mass ratio] 1.1 {ratio} Normal [facility] Comment on above: Performed By: #### H STROPN, CMP #### [facility] [address] [place] [address] Dr. Tj Wild ALP [Catalytic activity/Vol] 56 U/L Normal 38-126 [facility] Comment on above: Performed By: #### H STROPN, CMP #### [facility] [address] [place] [address] Dr. Tj Wild ALT [Catalytic activity/Vol] 21 U/L Normal 9-52 [facility] Comment on above: Performed By: #### H STROPN, CMP #### [facility] [address] [place] [address] Dr. Tj Wild Anion gap [Moles/Vol] 14.4 mmol/L Normal [facility] Comment on above: Performed By: #### H STROPN, CMP #### [facility] [address] [address] [address] Tj Wild AST [Catalytic activity/Vol] 27 U/L Normal 14-36 [facility] Comment on above: Performed By: #### H STROPN, CMP #### [facility] [address] [address] [address] Tj Wild Bilirubin [Mass/Vol] 0.5 mg/dL Normal 0.2-1.3 [facility] Comment on above: Performed By: #### H STROPN, CMP #### [facility] [address] [address] [address] Tj Wild Calcium [Mass/Vol] 8.7 mg/dL Normal 8.4-10.2 [facility] Comment on above: Performed By: #### H STROPN, CMP #### [facility] [address] [place] [address] Dr. Tj Wild Chloride [Moles/Vol] 101 mmol/L Normal 98-107 [facility] Comment on above: Performed By: #### H STROPN, CMP #### [facility] [address] [place] [address] Dr. Tj Wild CO2 [Moles/Vol] 26.3 mmol/L Normal 22.0-30.0 [facility] Comment on above: Performed By: #### H STROPN, CMP #### [facility] [address] [place] [address] Dr. Tj Wild Creatinine [Mass/Vol] 0.89 mg/dL Normal 0.52-1.04 [facility] Comment on above: Performed By: #### H STROPN, CMP #### [facility] [address] [place] [address] Dr. Tj Wild EGFR-AF BURKINAN >60 Normal >=60 [facility] Comment on above: Performed By: #### H STROPN, CMP #### [facility] [address] [place] [address] Dr. Tj Wild EGFR-NON AF BURKINAN >60 Normal >=60 [facility] Comment on above: Performed By: #### H STROPN, CMP #### [facility] [address] [address] [address] Tj Wild Globulin (S) [Mass/Vol] 3.3 g/dL Normal [facility] Comment on above: Performed By: #### H STROPN, CMP #### [facility] [address] [address] [address] Tj Wild Glucose [Mass/Vol] 116 mg/dL Critically high 74-106 [facility] Comment on above: Performed By: #### H STROPN, CMP #### [facility] [address] [place] [address] Dr. Tj Wild Potassium [Moles/Vol] 3.7 mmol/L Normal 3.4-5.0 [facility] Comment on above: Performed By: #### H STROPN, CMP #### [facility] [address] [place] [address] Dr. Tj Wild Protein [Mass/Vol] 6.8 g/dL Normal 6.1-8.2 [facility] Comment on above: Performed By: #### H STROPN, CMP #### [facility] [address] [place] [address] Dr. Tj Wild Sodium [Moles/Vol] 138 mmol/L Normal 137-145 [facility] Comment on above: Performed By: #### H STROPN, CMP #### [facility] [address] [place] [address] Dr. Tj Wild Urea nitrogen [Mass/Vol] 20.0 mg/dL Critically high 7.0-17.0 [facility] Comment on above: Performed By: #### H STROPN, CMP #### [facility] [address] [place] [address] Dr. Tj Wild Urea nitrogen/Creatinine [Mass ratio] 22.5 mg/mg Normal [facility] Comment on above: Performed By: #### H STROPN, CMP #### [facility] [address] [place] [address] Dr. Tj Wild TROPONIN, HIGH SENSITIVITYon 12-27-2021 HSTROP 10.4 pg/mL Normal 4.0-35.5 [facility] Comment on above: Result Comment: CUT- OFF POINTS HAVE BEEN ESTABLISHED BASED ON THE FOURTH UNIVERSAL DEFINITIONS OF MYOCARDIAL INFARCTION. THE UPPER REFERENCE LIMIT (URL) OF TROPONIN, DEFINED THE 99TH PERCENTILE OF cTnI DISTRIBUTION IN A REFERENCE POPULATION, HAS BEEN CONFIRMED THE DECISION THRESHOLD FOR [place] DIAGNOSIS. Performed By: #### H STROPN, CMP #### [facility] [address] [address] [address] Tj Wild XR CHEST 1 Von [...] by: Cassius MCKEON Date: 2021-07-05 20:35 Normal [facility] Vital Signs Date Time Vital Sign Value Performing Clinician Facility 08-21-2023 11:12-0500 Body mass index (BMI) [Ratio] 32.95 kg/m2 Bhumika COKER Work Phone: [facility] 08-21-2023 11:12-0500 Body weight 84.37 kg Bhumika COKER Work Phone: [facility] 08-21-2023 11:12-0500 Diastolic blood pressure 60 mm[Hg] Bhumika COKER Work Phone: [facility] 08-21-2023 11:12-0500 Systolic blood pressure 110 mm[Hg] Bhumika COKER Work Phone: [facility] 02-26-2023 15:56-0400 Body temperature 98.78 [degF] Charlie Rubalcava [facility] 02-26-2023 15:56-0400 Diastolic blood pressure 76 mm[Hg] Charlie Rubalcava [facility] 02-26-2023 15:56-0400 Heart rate 107 /min Charlie Rubalcava [facility] 02-26-2023 15:56-0400 Respiratory rate 16 /min Charlie Rubalcava [facility] 02-26-2023 15:56-0400 SaO2% (BldA) [Mass fraction] 98 % Charlie Rubalcava [facility] 02-26-2023 15:56-0400 Systolic blood pressure 115 mm[Hg] Charlie Rubalcava [facility] 12-31-2022 10:16-0400 Body temperature 98.24 [degF] Javier Woods [facility] 12-31-2022 10:16-0400 Diastolic blood pressure 82 mm[Hg] Javier Reynae [facility] 12-31-2022 10:16-0400 Heart rate 90 /min Javier Reynae [facility] 12-31-2022 10:16-0400 Respiratory rate 18 /min Javier Woods [facility] 12-31-2022 10:16-0400 SaO2% (BldA) [Mass fraction] 99 % Javier Reynae [facility] 12-31-2022 10:16-0400 Systolic blood pressure 129 mm[Hg] Javier Peggy [facility] 12-30-2022 13:13-0400 Body temperature 98.06 [degF] Javier Peggy [facility] 12-30-2022 13:13-0400 Diastolic blood pressure 75 mm[Hg] Javier Peggy [facility] 12-30-2022 13:13-0400 Heart rate 88 /min Javier Peggy [facility] 12-30-2022 13:13-0400 Respiratory rate 16 /min Javier Woods [facility] 12-30-2022 13:13-0400 SaO2% (BldA) [Mass fraction] 96 % Javier Woods [facility] 12-30-2022 13:13-0400 Systolic blood pressure 125 mm[Hg] Javier Woods [facility] 12-21-2022 13:35-0400 Body temperature 98.24 [degF] Charlie Rubalcava [facility] 12-21-2022 13:35-0400 Diastolic blood pressure 77 mm[Hg] Charlie Rubalcava [facility] 12-21-2022 13:35-0400 Heart rate 93 /min Charlie Khadar [facility] 12-21-2022 13:35-0400 Respiratory rate 18 /min Charlie Rubalcava [facility] 12-21-2022 13:35-0400 SaO2% (BldA) [Mass fraction] 99 % Charlie Rubalcava [facility] 12-21-2022 13:35-0400 Systolic blood pressure 128 mm[Hg] Charlie Khadar [facility] 09-05-2022 22:53-0500 Diastolic blood pressure 63 mm[Hg] Kaylinn Dokken [facility] 09-05-2022 22:53-0500 Heart rate 93 /min Kaylinn Dokken [facility] 09-05-2022 22:53-0500 Mean blood pressure 80 mm[Hg] Kaylinn Dokken [facility] 09-05-2022 22:53-0500 Respiratory rate 20 /min Kaylinn Dokken [facility] 09-05-2022 22:53-0500 SaO2% (BldA) [Mass fraction] 95 % Kaylinn Dokken [facility] 09-05-2022 22:53-0500 Systolic blood pressure 114 mm[Hg] Kaylinn Dokken [facility] 09-05-2022 21:45-0500 Diastolic blood pressure 60 mm[Hg] Kaylinn Dokken [facility] 09-05-2022 21:45-0500 Heart rate 97 /min Kaylinn Dokken [facility] 09-05-2022 21:45-0500 Mean blood pressure 80 mm[Hg] Kaylinn Dokken [facility] 09-05-2022 21:45-0500 Respiratory rate 16 /min Kaylinn Dokken [facility] 09-05-2022 21:45-0500 SaO2% (BldA) [Mass fraction] 93 % Kaylinn Dokken [facility] 09-05-2022 21:45-0500 Systolic blood pressure 119 mm[Hg] Kaylinn Dokken [facility] 09-05-2022 21:03-0500 Body temperature 97.52 [degF] Kaylinn Dokken [facility] 09-05-2022 21:03-0500 Diastolic blood pressure 56 mm[Hg] Kaylinn Dokken [facility] 09-05-2022 21:03-0500 Heart rate 115 /min Quita Clark [facility] 09-05-2022 21:03-0500 Respiratory rate 32 /min Perlan Gretaen [facility] 09-05-2022 21:03-0500 SaO2% (BldA) [Mass fraction] 95 % Quita Hernandesen [facility] 09-05-2022 21:03-0500 Systolic blood pressure 123 mm[Hg] Quita Hernandesen [facility] 04-14-2022 19:00-0400 Diastolic blood pressure 70 mm[Hg] Saúl Hubert [facility] 04-14-2022 19:00-0400 Heart rate 91 /min Saúl Hubert [facility] 04-14-2022 19:00-0400 Mean blood pressure 83 mm[Hg] Saúl Hubert [facility] 04-14-2022 19:00-0400 Respiratory rate 14 /min Saúl Hubert [facility] 04-14-2022 19:00-0400 SaO2% (BldA) [Mass fraction] 96 % Saúl Hubert [facility] 04-14-2022 19:00-0400 Systolic blood pressure 110 mm[Hg] Saúl Hubert [facility] 04-14-2022 18:22-0400 Diastolic blood pressure 64 mm[Hg] Saúl Hubert [facility] 04-14-2022 18:22-0400 Heart rate 87 /min Saúl Hubert [facility] 04-14-2022 18:22-0400 Mean blood pressure 76 mm[Hg] Saúl Hubert [facility] 04-14-2022 18:22-0400 Respiratory rate 20 /min Saúl Hubert [facility] 04-14-2022 18:22-0400 SaO2% (BldA) [Mass fraction] 95 % Saúl Hubert [facility] 04-14-2022 18:22-0400 Systolic blood pressure 100 mm[Hg] Saúl Hubert [facility] 04-14-2022 17:00-0400 Diastolic blood pressure 61 mm[Hg] Saúl Hubert [facility] 04-14-2022 17:00-0400 Respiratory rate 19 /min Saúl Hubert [facility] 04-14-2022 17:00-0400 SaO2% (BldA) [Mass fraction] 93 % Saúl Hubert [facility] 04-14-2022 17:00-0400 Systolic blood pressure 105 mm[Hg] Saúl Hubert [facility] 04-14-2022 15:35-0400 Heart rate 92 /min Saúl Hubert [facility] 04-14-2022 15:35-0400 Respiratory rate 16 /min Saúl Hubert [facility] 04-14-2022 14:48-0400 Body temperature 98.06 [degF] Saúl Hubert [facility] 04-14-2022 14:48-0400 Heart rate 113 /min Saúl Hubert [facility] 04-14-2022 14:48-0400 Respiratory rate 18 /min Saúl Hubert [facility] 11-19-2021 19:00-0400 Hourly Rounding Javier Peggy [facility] 11-19-2021 19:00-0400 Promise to Return Javier Reynae [facility] 11-19-2021 18:45-0400 Diastolic blood pressure 64 mm[Hg] Javier Peggy [facility] 11-19-2021 18:45-0400 Heart rate 85 /min Javier Peggy [facility] 11-19-2021 18:45-0400 Mean blood pressure 76 mm[Hg] Javier Peggy [facility] 11-19-2021 18:45-0400 Respiratory rate 16 /min Javier Peggy [facility] 11-19-2021 18:45-0400 SaO2% (BldA) [Mass fraction] 98 % Javier Peggy [facility] 11-19-2021 18:45-0400 Systolic blood pressure 100 mm[Hg] Javier Peggy [facility] 11-19-2021 18:15-0400 Diastolic blood pressure 70 mm[Hg] Javier Peggy [facility] 11-19-2021 18:15-0400 Heart rate 84 /min Javier Peggy [facility] 11-19-2021 18:15-0400 Mean blood pressure 85 mm[Hg] Javier Peggy [facility] 11-19-2021 18:15-0400 Respiratory rate 16 /min Javier Peggy [facility] 11-19-2021 18:15-0400 SaO2% (BldA) [Mass fraction] 96 % Javier Peggy [facility] 11-19-2021 18:15-0400 Systolic blood pressure 114 mm[Hg] Javier Woods [facility] 11-19-2021 17:45-0400 Diastolic blood pressure 71 mm[Hg] Javier Woods [facility] 11-19-2021 17:45-0400 Heart rate 86 /min Javier Woods [facility] 11-19-2021 17:45-0400 Mean blood pressure 81 mm[Hg] Javier Woods [facility] 11-19-2021 17:45-0400 Respiratory rate 16 /min Javier Woods [facility] 11-19-2021 17:45-0400 SaO2% (BldA) [Mass fraction] 97 % Javier Woods [facility] 11-19-2021 17:45-0400 Systolic blood pressure 102 mm[Hg] Javier Woods [facility] 11-19-2021 15:45-0400 Blood Pressure Location Javier Woods [facility] 11-19-2021 15:22-0400 Body temperature 98.24 [degF] Javier Woods [facility] 11-19-2021 15:22-0400 Heart rate 111 /min Javier Woods [facility] Encounters Encounter Date Encounter Type Care Provider [...] Emergency department patient visit Charlie Rubalcava [place] [place] 02-26-2023 End: 02-26-2023 Emergency department patient visit Charlie Rubalcava [facility] Start: 01-30-2023 End: [facility] Start: 12-31-2022 End: 12-31-2022 Emergency department patient visit Javier Woods [place] Start: 12-31-2022 End: 12-31-2022 Emergency department patient visit Javier Woods [facility] Start: 12-30-2022 End: 12-30-2022 Emergency department patient visit Javier Woods [place] Start: 12-30-2022 End: 12-30-2022 Emergency department patient visit Javier Woods [facility] Start: 12-26-2022 End: 12-27-2022 ambulatory John EXTON Facility:[facility] Start: 12-21-2022 End: 12-21-2022 Emergency department patient visit Charlie Rubalcava [place] Start: 12-21-2022 End: 12-21-2022 Emergency department patient visit Charlie Rubalcava [facility] Start: 12-15-2022 End: 12-16-2022 ambulatory John EXTON [facility] [facility]: [facility]-05-2022 End: 09-06-2022 Emergency department patient visit Quita Clark [place] [place]: 09-05-2022 End: 09-05-2022 Emergency department patient visit Quita Clark [facility] Start: 09-04-2022 End: 09-04-2022 Emergency department patient visit Dandrerenu Sheldon Lamin [place] Start: 07-27-2022 End: 07-27-2022 Emergency department patient visit Saúl Gaspar [facility] Start: 04-14-2022 End: 04-14-2022 Emergency department patient visit aSúl Gaspar [place] Start: 04-14-2022 End: 04-14-2022 Emergency department patient visit Saúl Gaspar [facility] Start: 01-13-2022 End: 01-13-[address] HOLLIE RUBI Facility: Start: 11-19-2021 End: 11-19-2021 Emergency department patient visit Javier Woods [facility] Start: 07-05-2021 End: 07-06-2021 ambulatory PHILLIP LORA [...] [address] [place] [address] Broderick Nickerson, DO [address] [place] [address] [facility] Start: 08-21-2023 End: 08-21-2024 [...] mellitus screening Expected: 08/21/2023 (Approximate), Expires: 08/21/2024 [facility] Comment on above: Expected: 08/21/2023 (Approximate), Expires: 08/21/2024 Payers Date Payer Category Payer Medicaid [employer] [facility] [id number] 2022-Present [address] [address] [place] [address] [id number] 1990 Unknown [id number] 2.16.840.1.183841.3.579.2.593 1990 Unknown [id number] 2.16.840.1.168005.3.579.2.593 1990 Unknown [id number] 2.16.840.1.624429.3.579.2.727 1990 Unknown [id number] 2.16.840.1.525952.3.579.2.727 1990 Unknown [id number] 2.16.840.1.965419.3.579.2.727 1990 Unknown [id number] 2.16.840.1.822958.3.579.2.727 1990 Unknown [id number] 2.16.840.1.316668.3.579.2.727 1990 Unknown [id number] 2.16.840.1.426957.3.579.2.727 1990 Unknown [id number] 2.16.840.1.238341.3.579.2.727 1990 Unknown [id number] 2.16.840.1.913936.3.579.2.727 1990 Unknown [id number] 2.16.840.1.425987.3.579.2.727 1990 Unknown [id number] 2.16.840.1.205428.3.579.2.727 1990 Unknown [id number] 2.16.840.1.062333.3.579.2.727 1990 Unknown [id number] 2.16.840.1.396590.3.579.2.1259 1990 Unknown [id number] 2.16.840.1.449025.3.579.2.1259 1990 Unknown [id number] 2.16.840.1.517993.3.579.2.1259 1990 Unknown [id number] 2.16.840.1.994304.3.579.2.1259 1990 Unknown [id number] 2.16.840.1.550004.3.579.2.1259 1990 Unknown [id number] 2.16.840.1.070826.3.579.2.1259 1990 Unknown [id number] 2.16.840.1.897714.3.579.2.1259 1990 Unknown [id number] 2.16.840.1.118131.3.579.2.1259 1990 Unknown [id number] 2.16.840.1.769846.3.579.2.1259 1959 Unknown [id number] Self-pay Social History Date Type Detail Facility Tobacco Cigarettes [facility] Comment on above: 1 ppd Sex Assigned At Female [facility] Start: 04-14-2022 Tobacco smoking status Heavy tobacco smoker (finding) [facility] Tobacco smoking status NHIS Tobacco smoking consumption unknown [facility] Start: 02-14-2023 [facility] Start: 1990 Sex Assigned At Not on file [facility] Functional Status Date Assessment Result Facility 02-26-2023 Functional Status N/A [facility] 12-31-2022 Functional Status N/A [facility] 12-30-2022 Functional Status N/A [facility] 12-21-2022 Functional Status N/A [facility] 09-05-2022 Functional Status N/A [facility] 04-14-2022 Functional Status N/A [facility] Clinical Notes 07-06-2021 to 08-21-2023 [...] JOHN PAUL Ardon documented in this encounter [facility] 02-26-2023 Hospital Discharg e instructions [...] condition. Follow these instructions at home: Take cluk-iha-ftdjggv and prescription medicines only as told by [...] and water are not available, use hand sr. consultant. Avoid contact with people who have cold [...] it is easier to cough up. Take pcvb-wbi-dqwrirv and prescription medicines only as told by [...] provider. Document Revised: 10/27/2021 Document Reviewed: 10/27/2021 [employer]umi Patient Education 2022 [employer]. Follow Up Care 02/26/2023 15:53:57 With:Mark Nelson Address: [address] [place] [address] Business (1) When:03/01/2023 17:54:59 Comments:Call the office [...] you develop any new or worsening symptoms. [facility] 02-26-2023 Evaluation + Plan note Extrac kathi from: Title:ED Note Author:Namrata CAO, Juan Ortega e:02/26/23 Bronchitis (J40: Bronchitis, not specified as acute or chronic) Upper respiratory infection (J06.9: Acute upper respiratory infection, unspecified) Orders: albuterol, 2 puff(s), Inhalation, q4hr for 7 day(s), 8.5 gm, Refill(s) 0, [facility], 160, cm, 02/26/23 15:59:00 EDT, Height/Length Dosing, 85.6, kg, 02/26/23 15:59:00 EDT, Weight Dosing brompheniramine/dextromethorphan/PSE, 5 mL, Oral, QID for cold symptoms, 200 mL, Refill(s) 0, [facility], 160, cm, 02/26/23 15:59:00 EDT, Height/Length Dosing, 85.6, kg, 02/26/23 15:59:00 EDT, Weight Dosing guaifenesin, 600 mg = 1 tab(s), Oral, q12hr, X 7 day(s), # 14 tab(s), Refills(s) 0, Pharm[facility], 160, cm, 02/26/23 15:59:00 EDT, Height/Length Dosing, 85.6, kg, 02/26/23 15:59:00 EDT, Weight Dosing predniSONE, 60 mg = 3 tab(s), Oral, Daily, X 5 day(s), # 15 tab(s), Refills(s) 0, [facility], 160, cm, 02/26/23 15:59:00 EDT, Height/Length Dosing, 85.6, kg, 02/26/23 15:59:00 EDT, Weight Dosing Rapid COVID Antigen ([facility] [facility]-2023 Hospital Discharge instructions Patient Education 12/31/2022 10:41:35 [...] if you start to feel better. Take zxqj-hrh-vlxolfm and prescription medicines only as told by [...] Document Reviewed: 09/08/2021 Elsevier Patient Education 2022 Fididel. Follow Up Care 12/31/2022 10:02:50 With:Makr Pitts Address: [address] [place] [phone]- Business (1) When:01/03/2023 10:36:17 Comments:Follow-up with your primary care provider in 3 to 5 days. If symptoms worsen, do not improve, or new symptoms arise please report back to emergency department for further evaluation. [facility]06-23-2023 Hospital Discharge instructions Follow Up Care 12/30/2022 13:07:17 With:Mark Pitts Address: [address] [place] [phone]- Business (1) When:Within 3 Day(s) [facility]06-23-2023 Evaluation + Plan noteExtracted from: Title:ED Note Author:Javier Woods DO Date:12/09 09/29 Otitis externa, left (H60.92 : Unspecified otitis externa, left ear) Orders: ciprofloxacin-dexamethasone otic, 5 drop(s), Otic, BID for 7 day(s), 7.5 mL, Refill(s) 0, [facility], 160, cm, 12/30/22 13:14:00 EDT, Height/Length Dosing, 85.6, kg, 12/30/22 13:14:00 EDT, Weight Dosing [facility]06-14-2023 Hospital Discharge instructions Patient Education 12/21/2022 14:54:11 [...] or swathi your foot. General instructions Take rkqf-nvy-yrocrci and prescription medicines only as told by [...] provider. Document Revised: 10/16/2020 Document Reviewed: 10/16/2020 [employer]umi Patient Education 2022 [employer]idel. 12/21/2022 14:54:11 Elastic Bandage and RICE Therapy [...] limityour activities and whether you should start eqbaj-fy-psenye exercises for your injury. Ice Ice your [...] provider. Document Revised: 08/21/2020 Document Reviewed: 03/16/2018 [employer]umi Patient Education 2020 [employer]idel. 12/21/2022 14:54:11 Ankle Sprain, Phase II Rehab [...] by your health care provider. Stretching and xoxjr-pn-myodei exercises These exercises warm up your muscles [...] provider. Document Revised: 08/19/2021 Document Reviewed: 08/19/2021 gumi Patient Education 2022 [employer]idel. 12/21/2022 14:54:11 Ankle Sprain, Phase I Rehab [...] told by your healthcare provider. Stretching and zhytc-hf-amnjgl exercises These exercises warm up your muscles [...] provider. Document Revised: 08/19/2021 Document Reviewed: 08/19/2021 gumi Patient Education 2022 [employer] 12/21/2022 14:54:11 Ankle Sprain, Puvz-sr-Zvhn Ankle Sprain An ankle sprain is a [...] blue. Managing pain, stiffness, and swelling Take jyrk-hlz-tcfeamv and prescription medicines only as told by [...] provider. Document Revised: 08/19/2021 Document Reviewed: 08/19/2021 gumi Patient Education 2022 F[employer]idel. Follow Up Care 12/21/2022 13:24:37 With:Mark Pitts Address: [address] [place] [phone] Business (1) When:12/24/2022 14:27:12 Comments:Follow-up with your primary care provider in 3 to 5 days. If symptoms worsen, do not improve, or new symptoms arise please report back to emergency department for further evaluation. [facility]06-14-2023 Evaluation + Plan noteExtracted from: Title:ED Note Author:Loyd Lange PA-C te:12/21/22 Left ankle sprain (S93.402A: Sprain of unspecified ligament of left ankle, initial encounter) Sprain of left foot (S93.602A: Unspecified sprain of left foot, initial encounter) Orders: Crutches XR Ankle 3+ Views Left XR Foot 3+ Views Left [facility]02-28-2023 Hospital Discharge instructions Patient Education 09/05/2022 22:58:39 Hives, Ohav-yo-Vdzv Hives Hives are itchy, red, swollen areas [...] woman. Being allergic to foods such as: ?[place] fruits. ?Milk. ?Eggs. ?Peanuts. ?Tree nuts. ?Shellfish. [...] instructions at home: Medicines Take or apply kork-lpa-lzewsym and prescription medicines only as told by [...] what causes your hives. Take and apply bisi-mht-kwmwerf and prescription medicines only as told by your doctor. Keep all follow-up visits as told by your doctor. This is important. This information is not intended to replace advice given to you by your health care provider. Make sure you discuss any questions you have with your health care provider. Document Released: 04/04/2009 Document Revised: 01/09/2019 Document Reviewed: 01/09/2019 gumi Patient Education [employer]. Follow Up Care 09/05/2022 21:02:01 With:KATJA MCGINNIS Address: [address] [place] [phone]- Business (1) When:09/08/2022 21:23:21 Comments:Follow-up for further evaluation of your urticarial rashes and reactions. With:Mark Pitts Address: [address] [place] [phone]- Business (1) When:Within 3 Day(s) [facility]02-27-2023 Evaluation + Plan noteExtracted from: Title:ED Note Author:Loyd Lange PA-C te:09/05/22 Allergic reaction (T78.40XA: Allergy, unspecified, initial encounter) Urticaria (L50.9: Urticaria, unspecified) Orders: diphenhydrAMINE, 25 mg = 0.5 mL, Injection, IV Push, Once, Stop date 09/05/22 21:11:00 EST, STAT, Start date 09/05/22 21:11:00 EST, 09/05/22 21:11:00 EST epinephrine, 0.3 mg, IntraMuscular, Once, # 1 kit(s), Refills(s) 1, Pharmacy: [facility], 160, cm, 09/05/22 [...] day(s), # 21 tab(s), Refills(s) 0, Pharmacy: [facility], 160, cm, 09/05/22 21:08:00 EST, Height/Length Dosing, 85.6, kg, 09/05/22:08:00 EST, Weight Dosing Sodium Chloride 0.9% intravenous solution, 1,000 mL, Soln-IV, IV, Once, Stop date 09/05/22:11:00 EST, STAT, Start date 09/05/22 21:11:00 EST, mL/hr, Infuse over 61, minute(s) [facility]10-06-2022 Hospital Discharge instructions Patient Education 04/14/2022 19:42:50 [...] symptoms? 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 This may include redness. [...] you have hives or rash: ?Use an lukp-nlk-bjlbsmn antihistamine as told by your health care provider. ?Apply cold, wet cloths (cold compresses) to your skin or take baths or showers in cool water. Avoid hot water. Take aspd-lzi-lpcyarq and prescription medicines only as told by your health care provider. Tell all your health care providers that you have an allergy. Keep all follow-up visits as told by your health care provider. This is important. How is this prevented? Avoid allergens that have caused an anaphylactic reaction in the past. When you are at a restaurant, tell your process server that you have an allergy. If you are not sure whether a menu item contains an ingredient that you are allergic to, ask your process server. Where to find more information [employer] [...] 06/26/2006 Document Revised: 10/18/2018 Document Reviewed: 10/18/2018 gumi Patient Education 2020 [employer] Follow Up Care 04/14/2022 14:45:49 With:[facility] Address: [address] [place], [place] [phone]- Business (1) When:04/17/2022 18:33:05 [facility]05-13-2022 Hospital Discharge instructions Patient Education 11/19/2021 19:08:27 [...] have symptoms of anaphylaxis, such as: Feeling laborer marine terminal the face (flushed). This may include redness. [...] you are at a restaurant, tell your process server that you have an allergy. If you are unsure whether a meal has an ingredient that you are allergic to, ask your process server. Take kcnj-xvm-uydabmg and prescription medicines only as told by [...] 06/23/2001 Document Revised: 06/26/2018 Document Reviewed: 06/26/2018 gumi Patient Education 2020 [employer]idel. Follow Up Care 11/19/2021 15:20:25 With:[facility] Address: [address] [place] [address] Business (1) When:11/22/2021 18:25:35 [facility]12-28-2021 NotePROCEDURE: CTA CHEST WO W CON REASON [...] authenticated by: TULIO VILLASEÑOR Date: 2021-07-05 23:35[facility] No data available for this section [facility] Diagnosis Third trimester state, incidental Diabetes mellitus screening Screening for diabetes mellitus BV (bacterial vaginosis) Unspecified vaginitis and vulvovaginitis Nausea Nausea alone documented in this encounter [facility] No data available for this section [facility] Summary Purpose Family History No Family History Records FoundNo Family History Records FoundNo Family History Records Found Advance Directives No Advanced Directives Records FoundNo Advanced Directives Records FoundNo Advanced Directives Records Found Additional Source Comments INFORMATION SOURCE (unrecogn ized section and content) DATE CREATED AUTHOR 01/17/2022 [facility] DATE CREATED AUTHOR AUTHOR'S ORGANIZ ATION 02/26/2023 [facility] DATE CREATED AUTHOR AUTHOR'S ORGANIZ ATION 10/25/2023 [facility] EPIC Patient Care team informatio n (unrecognized section and content) 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 [facility] [employer] [facility]. provides no warranty or guarantee of the accuracy or completeness of information in this document.
[2023-10-31 22:00] VITALS: TEMP 36.7
[2023-10-31] MEDS: 0.9 % SODIUM CHLORIDE 1,000 ML 1000 ML IV (22:30)
[2023-10-31 22:34] LABS: Bilirubin Urine NEGATIVE (NEGATIVE); Blood Urine LARGE (NEGATIVE); Clarity Urine CLEAR (CLEAR); Color Urine YELLOW (YELLOW); Glucose Urine UA NEGATIVE (NEGATIVE); Ketones Urine NEGATIVE (NEGATIVE); Leukocyte Esterase Urine NEGATIVE (NEGATIVE); Nitrite Urine NEGATIVE (NEGATIVE); Protein Urine NEGATIVE (NEG/TRACE); Urobilinogen Urine 0.2 EU/dL (0.2-1.0)
[2023-10-31 22:37] LABS: Urine Microscopic Indicated YES
[2023-10-31 22:38] LABS: Hematocrit 31.6 % (36.0-48.0); Hemoglobin 9.9 g/dL (12.0-16.0); Mean Corpuscular HGB Conc 31.3 g/dL (29.9-35.2); Mean Corpuscular Hemoglobin 23.6 pg (26.7-34.0); Mean Corpuscular Volume 75.2 fL (81.0-99.0); Platelet Count 177 10^3/uL (150-450); Red Cell Distribution Width 17.3 % (11.0-15.0); White Blood Count 14.6 10^3/uL (4.0-11.0)
[2023-10-31 22:41] LABS: RBC Urine 20-50 #/HPF (0-2); WBC Urine NONE SEEN #/HPF (NONE SEEN)
[2023-10-31 22:42] LABS: Amorphous Sediment Urine RARE; Bacteria Urine TRACE #/HPF (NONE SEEN); Cast Seen? NONE SEEN #/LPF (NONE SEEN); Crystals Seen? None Seen #/HPF (None Seen); Mucus Urine NONE SEEN (NONE SEEN); Squamous Epithelial Cell Urine FEW #/LPF (NONE/RARE); Urine Culture Indicated YES
[2023-10-31 22:46] VITALS: BP 117/66; PULSE 83
[2023-10-31 22:47] LABS: Amphetamine Screen Urine NEGATIVE (NEGATIVE); Barbiturates Screen Urine NEGATIVE (NEGATIVE); Benzodiazepines Screen Urine NEGATIVE (NEGATIVE); Buprenorphine Screen Urine NEGATIVE (NEGATIVE); Cannabinoid Screen Urine NEGATIVE (NEGATIVE); Cocaine Screen Urine NEGATIVE (NEGATIVE); Methadone Screen Urine NEGATIVE (NEGATIVE); Methamphetamines Screen Urine NEGATIVE (NEGATIVE); Opiate Screen Urine NEGATIVE (NEGATIVE); Oxycodone Screen Urine NEGATIVE (NEGATIVE); Phencyclidine Screen Urine NEGATIVE (NEGATIVE); Tricyclic Antidepressant Urine NEGATIVE (NEGATIVE)
[2023-11-01] VITALS (43 sets, daily range): BP systolic 100–142; BP diastolic 54–78; PULSE 63–110; TEMP 36.4–36.8
[2023-11-01] MEDS: OXYTOCIN/0.9 % SODIUM CHLORIDE 10 UNITS/500 ML PLAST..BAG 6 UNIT IV (05:35)
[2023-11-01] MEDS: 0.9 % SODIUM CHLORIDE 1,000 ML 125 ML IV ×2 (05:57→13:56)
[2023-11-01] MEDS: ROPIVACAINE HCL/PF 400 MG/200 ML PREMIX 6 MG EPIDURAL (14:33)
[2023-11-01] MEDS: CLINDAMYCIN PHOSPHATE/D5W 900 MG/50 ML PIGGYBACK 100 MG IV (15:13)
[2023-11-01] MEDS: OXYTOCIN/0.9 % SODIUM CHLORIDE 20 UNITS/1,000 ML PLAST..BAG 125 UNIT IV (15:55)
--- NOTE | 2023-11-01 15:59 | PM.OBPRCVD ---
Procedure Intrapartal events: None Induction method: none Delivery monitor: external FHT and external uterine Route of delivery: Episiotomy Description: none L&D Laceration Description: none Estimated blood loss (mL): 200 Anesthesia type: Epidural Disposition: floor Infant Delivery date: 11/01/23 Gender: female presentation: vertex Placental delivery description: Spontaneous cord description: 3 Vessels
--- NOTE | 2023-11-01 17:25 | PC.NURSE ---
1715: EPIDURAL REMOVED PER RN, WITH TIP INTACT- SITE SECURED WITH BANDAID
[2023-11-02 05:45] LABS: Basophils Percent Auto 0.3 % (0.2-2.0); Eosinophils Absolute Auto 0.1 10^3/uL (0.0-0.7); Eosinophils Percent Auto 0.9 % (0.9-7.0); Hematocrit 29.4 % (36.0-48.0); Immature Granulocytes Abs Auto 0.07 10^3/uL (0.00-0.03); Immature Granulocytes Pct Auto 0.5 % (0.0-0.5); Lymphocytes Percent Auto 20.1 % (20.5-60.0); Mean Corpuscular HGB Conc 30.6 g/dL (29.9-35.2); Mean Corpuscular Hemoglobin 23.2 pg (26.7-34.0); Mean Corpuscular Volume 75.8 fL (81.0-99.0); Mean Platelet Volume 10.5 fL (9.5-13.5); Monocytes Absolute Auto 0.6 10^3/uL (0.3-0.8); Monocytes Percent Auto 3.8 % (1.7-12.0); Neutrophils Percent Auto 74.4 % (43.0-75.0); Platelet Count 161 10^3/uL (150-450); Red Blood Count 3.88 10^6/uL (4.20-5.40); White Blood Count 14.8 10^3/uL (4.0-11.0)
--- NOTE | 2023-11-02 07:34 | P.OBPN_ITS ---
OB - PN: Subj Subjective Patient comments: no complaints and pain well controlled [place] status: doing well Exam Constitutional Vital Signs, click to edit/add: Last Vital Signs Temp 98.2 F 11/01/23 23:02 Pulse 78 11/01/23 23:02 Resp 16 11/01/23 23:02 BP 109/69 11/01/23 23:02 O2 Del Method Room Air 11/01/23 23:03 Documenting provider has reviewed patient's vital signs: yes Common normals: no apparent distress Respiratory Common normals: clear to auscultation bilaterally Cardio Common normals: regular rate and regular rhythm GI Common normals: Normal to inspection, nondistended, normoactive bowel sounds present Extremity Common normals: no clubbing, cyanosis or edema Results Labs Labs: Short CBC 11/02/23 Range/Units 05:35 WBC 14.8 H (4.0-11.0) 10^3/uL Hgb 9.0 L (12.0-16.0) g/dL Hct 29.4 L (36.0-48.0) % Plt Count 161 (150-450) 10^3/uL OB - PN: A/P Plan - Vaginal Delivery day: 1 Plan: routine care Time Spent with Patient Time: Total time spent is greater than 50% in coordination of care (as documented) at patient's floor/unit and/or counseling patient: Total time spent with greater than 50% in coordination of care (as documented) at patient's floor/unit and/or counseling patient: less than 15 minutes
[2023-11-02 07:43] VITALS: BP 114/58; PULSE 75; TEMP 36.6
[2023-11-02] MEDS: RHO(D) IMMUNE GLOBULIN 1,500 UNIT SYRINGE 1500 UNIT IV (09:05)
== END 2023-11-02 09:45 | disposition home or self-care (01) | DRG 560 ==
PROVIDERS: Admitting Provider Obstetrics & Gynecology; Visit Provider Obstetrics & Gynecology
DX: O26.893 Other specified pregnancy related conditions, third trimester (principal); Z67.21 Type B blood, Rh negative; Z3A.39 39 weeks gestation of pregnancy; Z37.0 Single live birth
CPT/HCPCS: 36415; 59050; 59410; 80307; 81001; 85025; 85027; 85461; 86850; 86900; 86901; 87086; 96365; 96366; 96372; 96375; 96376; J2790

== ENCOUNTER 2024-01-31 13:58 | Emergency (ER) | payer OTHER, SELFPAY ==
[2024-01-31 14:03] VITALS: BP 127/72; PULSE 88; TEMP 36.7; O2SAT 94; BMI 32.0
--- OUTSIDE RECORDS SUMMARY | 2024-01-31 14:06 | XMS_ITS | CCD ---
Author Organization [facility] Care Team Providers Care End Lathe Operator Name Role Phone Mark Pitts Primary Care [...] Unavailable HAIDER, John Attending Unavailable MONICA, Willa Ted Attending Unavailable MONICA, Willa T Admitting Unavailable Amber, Quita Cano Attending Unavailable Solo Kimble Attending Unavailable Mark Pitts MD Primary Care Provider BRODERICK NICKERSON Attending Unavailable CHEPE, BHUMIKA Attending Unavailable LIYA, BRODERICK Attending Unavailable CHEPE, BHUMIKA Attending Unavailable LIYA, BRODERICK Attending Unavailable LIYA, BRODERICK Attending Unavailable CHEPE, BHUMIKA Attending Unavailable LIYA, BRODERICK Attending Unavailable CHEPE, BHUMIKA Attending Unavailable CHEPE, BHUMIKA Attending Unavailable Allergies Allergy Classification Reported Allergen(s) Allergy Type Date of Onset Reaction(s) Facility (11 sources) Codeine; Translations: [codeine] Drug Allergy 3 [facility] (8 sources) Penicillin; Translations: [penicillin] Drug Allergy [facility] (1 source) Clindamycin Drug Allergy [facility] (1 source) Codeine Drug Allergy 4 [facility] (1 source) Penicillins Drug allergy (disorder) 4 [facility] (10 sources) Ibuprofen; Translations: [ibuprofen] Drug Allergy 3 Anaphylaxis (disorder), [facility] (6 sources) Amoxicillin; Translations: [amoxicillin] Drug Allergy 3 [facility] (3 sources) Penicillins Propensity to adverse reactions 3 [facility] Medications Current Medications Medication Drug Class(es) Dates Sig (Normalized) Sig (Original) Albuterol (Eqv-ProAir HFA) 90 mcg/inh inhalation aerosol (1 source) Start: 02-26-2023 End: 03-05-2023 take 2 puff(s) by inhalation every four hours Albuterol (Eqv-ProAir HFA) 90 mcg/inh inhalation aerosol 2 puff(s), Inhalation, q4hr for 7 day(s), 8.5 gm, Refill(s) 0, [facility], 160, cm, 02/26/23 15:59:00 EDT, Height/Length Dosing, 85.6, kg, 02/26/23 15:59:00 EDT, Weight Dosing Start Date: 02/26/23 Stop Date: 03/05/23 Status: Ordered brompheniramine maleate 0.4 mg/ml / dextromethorphan hydrobromide 2 mg/ml / pseudoephedrine hydrochloride 6 mg/ml oral solution (9 sources) alpha-Adrenergic Agonist, Uncompetitive F-toxuot-N-aspartat e Receptor Antagonist, Sigma-1 Agonist Start: 02-27-2023 [...] for cold symptoms, 200 mL, Refill(s) 0, [facility], 160, cm, 02/26/23 15:59:00 EDT, Height/Length Dosing, 85.6, kg, 02/26/23 15:59:00 EDT, Weight Dosing Start Date: 02/26/23 Status: Ordered ciprofloxacin 3 mg/ml / dexamethasone 1 mg/ml otic suspension (2 sources) Corticosteroid, Quinolone Antimicrobial Start: 12-30-2022 End: 01-06-2023 Ciprodex 0.3%-0.1% Susp-Otic 5 drop(s), Otic, BID for 7 day(s), 7.5 mL, Refill(s) 0, [facility], 160, cm, 12/30/22 13:14:00 EDT, Height/Length Dosing, 85.6, kg, 12/30/22 13:14:00 EDT, Weight Dosing Start Date: 12/30/22 Stop Date: 01/06/23 Status: Ordered [id number] 0.3 ml EPINEPHrine 1 mg/ml auto-injector (9 [...] inventory, # 1 kit(s), Refills(s) 0, Pharmacy: [facility], 160, cm, 04/14/22 14:56:00 EDT, [...] day(s), # 7 tab(s), Refills(s) 0, Pharmacy: [facility], 160, cm, 04/14/22 14:56:00 EDT, Height/Length Dosing, 83, kg, 04/14/22 14:56:00 EDT, Weight Dosing Start Date: 04/14/22 Stop Date: 04/21/22 Status: Ordered Start: 11-19-2021 End: 11-26-2021 take 1 tablet by mouth once daily at bedtime Pepcid 40 mg Tab 40 mg = 1 tab(s), Oral, Once a day (at bedtime), X 7 day(s), # 7 tab(s), Refills(s) 0, Pharmacy: [facility], 160, cm, 11/19/21 15:30:00 EDT, [...] l route once daily Flonase 0.05 mg/inh [place] 2 spray(s), Nasal, Daily, 16 gram, Refill(s) 0, each nostril, [facility], 160, cm, 12/31/22 10:20:00 EDT, [...] day(s), # 14 tab(s), Refills(s) 0, Pharmacy: [facility], 160, cm, 02/26/23 15:59:00 EDT, [...] day(s), # 15 tab(s), Refills(s) 0, Pharmacy: [facility], 160, cm, 02/26/23 15:59:00 EDT, Height/Length Dosing, 85.6, kg, 02/26/23 15:59:00 EDT, Weight Dosing Start Date: 02/26/23 Stop Date: 03/03/23 Status: Ordered Start: 09-05-2022 End: 09-12-2022 take 3 tablets by mouth once daily predniSONE 20 mg Tab 60 mg = 3 tab(s), Oral, Daily, X 7 day(s), # 21 tab(s), Refills(s) 0, Pharmacy: [facility], 160, cm, 09/05/22 21:08:00 EST, Height/Length Dosing, 85.6, kg, 09/05/22 21:08:00 EST, Weight Dosing Start Date: 09/05/22 Stop Date: 09/12/22 Status: Ordered Start: 04-14-2022 End: 04-21-2022 take 3 tablets by mouth once daily predniSONE 20 mg Tab 60 mg = 3 tab(s), Oral, Daily, X 7 day(s), # 21 tab(s), Refills(s) 0, Pharmacy: [facility], 160, cm, 04/14/22 14:56:00 EDT, Height/Length Dosing, 83, kg, 04/14/22 14:56:00 EDT, Weight Dosing Start Date: 04/14/22 Stop Date: 04/21/22 Status: Ordered Start: 11-19-2021 End: 11-26-2021 take 3 tablets by mouth once daily predniSONE 20 mg Tab 60 mg = 3 tab(s), Oral, Daily, X 7 day(s), # 21 tab(s), Refills(s) 0, Pharmacy: [facility], 160, cm, 11/19/21 15:30:00 EDT, [...] q4hr, # 14 tab(s), Refills(s) 0, Pharmacy: [facility] 1985 Start Date: 03/21/19 Status: Ordered traMADol hydrochloride 50 mg oral tablet (1 source) Opioid Agonist Start: 12-31-2022 End: 01-03-2023 take 1 tablet by mouth every six hours as needed for pain traMADOL 50 mg Tab 50 mg = 1 tab(s), Oral, q6hr, PRN for pain, X 3 day(s), # 12 tab(s), Refills(s) 0, Pharmacy: [facility], 160, cm, 12/31/22 10:20:00 EDT, Height/Length Dosing, 85.6, kg, 12/31/22 10:20:00 EDT, Weight Dosing Start Date: 12/31/22 Stop Date: 01/03/23 Status: Ordered Zofran ODT 4 mg Tab-Dis (14 sources) Start: 08-05-2019 take 1 tablet by mouth three times daily Zofran ODT 4 mg Tab-Dis 4 mg = 1 tab(s), Oral, TID, # 15 tab(s), Refills(s) 0, Pharmacy: [facility], 160, cm, 08/05/19 9:28:00 EST, Height/Length Measured, 86.5, kg, 08/05/19 9:28:00 EST, Weight Measured Start Date: 08/05/19 Status: Ordered Start: 03-21-2019 take 1 tablet by savannah th every six hours Zofran ODT 4 mg Tab-Dis 4 mg = 1 tab(s), Oral, q6hr, # 10 tab(s), Refills(s) 0, Pharmacy: [facility] 1985 Start Date: 03/21/19 Status: Ordered [...] te Episodic/Chronic Other aftercare (1 source) Other senior care (current) drug therapy; Translations: [OTH ACOUSTICAL TILE 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 CURRENT DRUG THERAPY] Onset: 07-07-2021 Episodic Other [...] [Ratio] 15.0 % 11.0 - 15.0 % [facility] Hematocrit (Bld) [Volume fraction] 31.4 % Low 36.0 - 48.0 % [facility] Hemoglobin (Bld) [Mass/Vol] 9.7 g/dL Low 12.0 - 16.0 g/dL [facility] IMMATURE GRANULOCYTES ABS AUTO 0.05 High [facility] Immature granulocytes/100 WBC (Bld) 0.4 % 0.0 - 0.5 % [facility] Interpretation and review of laboratory results Abnormal [facility] LYMPHOCYTES ABSOLUTE AUTO 2.6 [facility] Lymphocytes/100 WBC (Bld) 19.4 % Low 20.5 - 60.0 % [facility] MCH (RBC) [Entitic mass] 25.3 pg Low 26.7 - 34.0 pg [facility] MCHC (RBC) [Mass/Vol] 30.9 g/dL 29.9 - 35.2 g/dL [facility] MCV (RBC) [Entitic vol] 82.0 fL 81.0 - 99.0 fL [facility] MONOCYTES ABSOLUTE AUTO 0.3 [facility] Monocytes/100 WBC (Bld) 2.6 % 1.7 - 12.0 % [facility] NEUTROPHILS ABSOLUTE AUTO 10.2 High [facility] Neutrophils/100 WBC (Bld) 76.7 % High 43.0 - 75.0 % [facility] Platelet mean volume (Bld) [Entitic vol] 10.6 fL 9.5 - 13.5 fL [facility] TBH EO # 0.1 [facility] TB PLT 176 [facility] RBC 3.83 Low [facility] WBC 13.3 High [facility] Urinalysis macro (dipstick) panel (U)on 08-21-2023 Bilirubin, UA Negative Negative - 4(70) +++ mg/dL [facility] Blood, UA Negative Negative - 50 Juan Alberto/mcL [facility] Clarity, UA Clear [facility] Color, UA Yellow [facility] Glucose, UA Negative Negative - 2000(110) ++++ mg/dL [facility] Interpretation and review of laboratory results Normal [facility] Ketones, UA Negative Negative - 160(16) ++++ mg/dL [facility] Leukocytes, UA Negative Negative - 500+++ Geovani/mcL [facility] Nitrite, UA Negative Negative - Positive [facility] pH, UA 7.0 5 - 9 [facility] Protein, UA Negative Negative - 1999(20) ++++ mg/dL [facility] Spec Grav, UA 1.015 1 - 1.03 [facility] Urobilinogen, UA 0.2 0.2 - 12 mg/dL [facility] Cervical or vaginal smear or scraping studyon 06-15-2023 [facility] Consent for Treatmenton 02-08 Consent for Treatment [id number]#1 .00CD:127 [facility] Discharge Instructionson Discharge Instructions [id number]# 1.00CD:127 [facility] ED Clinical Summaryon 2022 ED Clinical Summary [address] [address] ED Clinical Summary Person Information Name: RJ ELENA Calista/[facility] Age: 32 Years : 1990 Sex: Female Language: Peruvian PCP: Mark Pitts DO Marital Status: Single Phone: [phone] Visit Id: Visit Reason: Shortness of breath; [...] 02/26/2023 18:10:02 02/26/2023 18:10:02 02/26/2023 18:10:02 ADDRESS: [address] [place] [address] [address] [facility] [id number] PHYS DOC NOTES: MEDICAL INFORMATION: Prescriptions Given: New Medications [facility], [address] [place] [id number], [phone] albuterol (Albuterol (Eqv-ProAir HFA) 90 mcg/inh inhalation aerosol) 2 Puffs Inhalation every 4 hours for 7 Days. Refills: 0. guaifenesin (Mucinex 600 mg Tab-ER) 1 Tablets By Mouth every 12 hours for 7 Days. Refills: 0. Medications to Continue Taking That Have Changed [facility], [address] [place] [id number], [phone] START: brompheniramine/dextr omethorphan/PSE (Bromfed DM oral syrup) [...] Refills: 0. fluticasone nasal (Flonase 0.05 mg/inh [place]) 2 Sprays Nasal Inhalation every day. each [...] Follow up: With: Address: When: Mark Pitts [address] [place], [place] [id number] Business (1) In 3 days 03/01/2023 Comments: [...] symptoms. DIAGNOSIS: Bronchitis; Upper respiratory infection [facility] ED Note-Physicianon 02-27-20 ED Note-Physician Basic [...] and Complexity of Problems Differential Diagnosis: [] [facility] Data External documents reviewed: [] [...] taken them within the last 30 days. [[facility] PERFORMANCE EXCEPTION/EXCLUSION] [ ] The patient [...] for 7 day(s), 8.5 gm, [facility]ill(s) 0, [facility], [facility], cm, 02/26/23 15:59:00 EDT, Height/Length Dosing, 85.6, kg, 02/26/23 15:59:00 EDT, Weight Dosing brompheniramine/dextr omethorphan/PSE, 5 mL, Oral, QID for cold symptoms, 200 mL, Refill(s) 0, [facility] 1985, 160, cm, 02/26/23 15:59:00 EDT, Height/Length Dosing, 85.6, kg, 02/26/23 15:59:00 EDT, Weight Dosing guaifenesin, 600 mg = 1 tab(s), Oral, q12hr, X 7 day(s), # 14 tab(s), Refills(s) 0, [facility], 160, cm, 02/26/23 15:59:00 EDT, Height/Length Dosing, 85.6, kg, 02/26/23 15:59:00 EDT, Weight Dosing predniSONE, 60 mg = 3 tab(s), Oral, Daily, X 5 day(s), # 15 tab(s), Refills(s) 0, Pharmacy: [facility] (more content not included)... [facility] Comment on above: Result Comment: Elec [...] Follow these instructions at home: ? Take bkmq-url-ympnxnm and prescription medicines only as told by [...] and water are not available, use hand career technology teacher. ? Avoid contact with people who have [...] is easier to cough up. ? Take bvyn-zan-orwonpx and prescription medicin (more content not included)... [facility] ED Patient Summaryon 023 ED Patient Summary [place] [id number] Patient Discharge Instructions Person Information Name: RJ ELENA Age: 32 Years Arrival Date: 02/26/2023 15:53:15 Discharge Diagnosis: Bronchitis; Upper respiratory infection Primary Care Physician: Mark Pitts DO Provider Information Primary Provider: Charlie Rubalcava DO Advanced Loan Processing Supervisor:Juan Ott PA-C The exam and treatment you received in the Emergency Department were for an urgent problem and are not intended as complete care. It is important that you follow up with a doctor, nurse practitioner, or physician?s assistant chief nursing officer for ongoing care. If your symptoms become [...] Instructions: With: Address: When: Mark Pitts [address] [place] [address] [facility] (1) In [...] opioids can be used to help relieve zzdmgzdm-rc-noeveh pain and are often prescribed following a [...] and family) (more content not included)... [facility] MICRO OTHER TESTSOrdered By: Juvenal Macario on 02-26-2023 Rapid COV Int NEG Ctl Pass (02/26/23 4:45 PM) Normal [facility] Rapid COV Int POS Ctl Pass (02/26/23 4:45 PM) Normal [facility] SARS-CoV+SARS-CoV-2 (COVID-19) Ag IA.rapid Ql (Resp) Not Detected (02/26/23 4:45 PM) Normal Not Detected [facility] Prescriptions/Work Noteson 0 02-26-2023 Prescriptions/Work Notes [id number]# 1.00CD:127 [facility] Rapid COVID Antigen ([facility])on 02-26-2023 Rapid COV Int NEG Ctl Pass [facility] Comment on above: Performed By: #### 2 [id number] ####[facility] [address] [place] [address] Rapid COV Int POS Ctl Pass [facility] Comment on above: Performed By: #### 2 [id number] ####[facility] [address] [place] [address] SARS-CoV+SARS-CoV-2 (COVID-19) Ag IA.rapid Ql (Resp) Not detected Normal Not Detected [facility] Comment on above: Result Comment: The [employer] Pharm[employer]? System for Rapid Detection of SARS-CoV-2 is [...] or revoked sooner. Performed By: #### 2 [id number] ####[place] [address] ADMITTED TO INTENSIVE CARE UNIT FOR CONDITION OF INTEREST:FIND:PT: NO [facility] Comment on above: Performed By: #### 2 [id number] ####[place] [address] EMPLOYED IN A HEALTHCARE SETTING:FIND:PT: NO [facility] Comment on above: Performed By: #### 2 [id number] ####[place] [address] FIRST TEST FOR CONDITION OF INTEREST:FIND:PT: Unknown [facility] Comment on above: Performed By: #### 2 [id number] ####[place] [address] HAS SYMPTOMS RELATED TO CONDITION OF INTEREST:FIND:PT: YES [facility] Comment on above: Performed By: #### 2 [id number] ####[place] [address] HOSPITALIZED FOR CONDITION OF INTEREST:FIND:PT: NO [facility] Comment on above: Performed By: #### 2 [id number] ####[place] [address] STATUS:FIND:PT: NO [facility] Comment on above: Performed By: #### 2 [id number] ####[place] [address] [facility]ID[facility] IN [facility] SETTING:FIND:PT: NO [facility] Comment on above: Performed By: #### 2 [id number] ####[place] [address] XR Chest 2 Viewson 3 XR Chest [...] mGy = na DAP = na [facility] In office Testingon 01-31-20 23 In office Testing [id number]#1 .00CD:127 [facility] Registrationon 01-30-2023 Registration [id number]# 1.00CD:127 [facility] ED Note-Physicianon 01-10-20 ED Note-Physician Basic [...] and Complexity of Problems Differential Diagnosis: [] [facility] Data External documents reviewed: [] [...] Daily, 16 gram, Refill(s) 0, each nostril, [facility], 160, cm, 12/31/22 10:20:00 EDT, Height/Length Dosing, 85.6, kg, 12/31/22 10:20:00 EDT, Weight Dosing tramadol, 50 mg = 1 tab(s), Oral, q6hr, PRN for pain, X 3 day(s), # 12 tab(s), Refills(s) 0, Pharmacy: [facility], 160, cm, 12/31/22 10:20:00 EDT, Height/Length Dosing, 85.6, kg, 12/31/22 10:20:00 EDT, Weight Dosing Disposition Plan Patient Discharge Condition Stable Discharge Disposition To home Discharge Prescription List Prescriptions Ciprodex 0.3%-0.1% Susp-Otic, 5 drop(s), Otic, BID Flonase 0.05 mg/inh [place], 2 spray(s), Nasal, Daily traMADOL 50 mg Tab, 50 mg= 1 tab(s), Oral, q6hr, PRN Follow-up With When Contact Information Mark Pitts In 3 days 01/03/2023 EDT [address] [place] [address]- Business (1) Additional Instructions: Follow-up with your primary care provider in 3 to 5 days. If symptoms worsen, do not improve, or new symptoms arise please report back to emergency department for further evaluation. Patient Education Otitis Externa Attestation Patient seen and evaluated by the physician assistant chief nursing officer. Attending physician was present in the emergency department and supervised care. This visit was performed by both the physician and an APC. I performed all aspects of the MDM as documented. This report was transcribed u (more content not included)... [facility] Comment on above: Result Comment: Elec tronically Signed By: Loyd Lange PA-C\.br\Date and Time Signed: 12/31/22 11:53 EDT\.br\Electronically Co-Signed By: Javier Woods DO\.haris\Date and Time Co-Signed: 01/09/23 07:15 EDT Consent for Treatmenton 12-09 Consent for Treatment [id number] .00CD:127 [facility] Discharge Instructionson Discharge Instructions [id number]# 1.00CD:127 [facility] ED Clinical Summaryon 2022 ED Clinical Summary [address] [address] ED Clinical Summary Person Information Name: RJ ELENA[place] Age: 32 Years : 1990 Sex: Female Language: Peruvian PCP: Mark Pitts DO Marital Status: Single Phone: [phone] Visit Id: Visit Reason: Ear pain; EAR [...] 10:41:35 ADDRESS: [address] [place] [id number] PHYS DOC NOTES: MEDICAL INFORMATION: Prescriptions Given: New Medications [facility], [address] [place], [place] [address], [phone] fluticasone nasal (Flonase 0.05 mg/inh [place]) 2 Sprays Nasal Inhalation every day. each [...] Follow up: With: Address: When: Mark Pitts [address] [place] [id number] Business (1) In 3 days 01/03/2023 Comments: Follow-up with your primary care provider in 3 to 5 days. If symptoms worsen, do not improve, or new symptoms arise please report back to emergency department for further evaluation. DIAGNOSIS: Bilateral otitis externa [facility] ED Patient Education Noteon 12-31-2022 ED [...] you start to feel better. ? Take ssaa-ila-mxiksod and prescription medicines only as told by [...] provider. Document Revised: 09/08/2021 Document Reviewed: 09/08/2021 [employer] Patient Education ? 2022 [employer] [facility] ED Patient Summaryon 023 ED Patient Summary [place] [id number] Patient Discharge Instructions Person Information Name: RJ ELENA Age: 32 Years Arrival Date: 12/31/2022 10:01:25 Discharge Diagnosis: Bilateral otitis externa Primary Care Physician: Mark Pitts DO Provider Information Primary Provider: Javier Woods DO Advanced Loan Processing Supervisor:None The exam and treatment you received in the Emergency Department were for an urgent problem and are not intended as complete care. It is important that you follow up with a doctor, nurse practitioner, or physician?s assistant chief nursing officer for ongoing care. If your symptoms become [...] Follow-up Instructions: With: Address: When: Mark Pitts [address] [place], [place] [phone] Business (1) In 3 days 01/03/2023 Comments: [...] opioids can be used to help relieve lqfxprfy-dx-cyvshl pain and are often prescribed following a [...] Consent for Treatmenton 12-09 Consent for Treatment [id number] .00CD:127 [facility] Discharge Instructionson Discharge Instructions [id number]# 1.00CD:127 [facility] ED Clinical Summaryon 2022 ED Clinical Summary [address] [address] ED Clinical Summary Person Information Name: RJ ELENA [place] Age: 32 Years : 1990 Sex: Female Language: Peruvian PCP: Mark Pitts DO Marital Status: Single Phone: [phone] Visit Id: Visit Reason: Ear pain; DOUBLE [...] 12/30/2022 13:59:40 12/30/2022 13:59:40 12/30/2022 13:59:40 ADDRESS: [address] [place] [address] [place] [id number] [facility] DOC NOTES: MEDICAL INFORMATION: Prescriptions Given: New Medications [facility], [address] [place] [id number], [phone] ciprofloxacin-dexamet hasone otic (Ciprodex 0.3%-0.1% Susp-Otic) 5 [...] INFORMATION: Instructions: Follow up: With: Address: When: [address] [address] Business (1) In 3 days DIAGNOSIS: Otitis externa, left [facility] ED Note-Physicianon 12-31-19 ED Note-Physician Basic [...] Information Mark Pitts In 3 days [address] [facility] (1) [...] Diagnostic Results No qualifying data available. [facility] Comment on above: Result Comment: Elec tronically Signed By: Javier Woods DO\.br\Date and Time Signed: 12/30/22 13:54 EDT ED Patient Education Noteon 12-30-2022 ED Patient Education Note [facility] ED Patient Summaryon 023 ED Patient Summary [place] [id number] Patient Discharge Instructions Person Information Name: RJ ELENA Age: 32 Years Arrival Date: 12/30/2022 13:06:22 Discharge Diagnosis: Otitis externa, left Primary Care Physician: Mark Pitts DO Provider Information Primary Provider: Javier Woods DO Advanced Loan Processing Supervisor:None The exam and treatment you received in the Emergency Department were for an urgent problem and are not intended as complete care. It is important that you follow up with a doctor, nurse practitioner, or physician?s assistant chief nursing officer for ongoing care. If your symptoms become [...] Instructions: With: Address: When: Mark Pitts [address] [place] [address] Business (1) In 3 days In the event that this physician does not participate in your insurance network, please consult with your insurance company to find a nearby participating provider. Patient Education Materials: A MESSAGE TO ALL PATIENTS REGARDING OPIOIDS PRESCRIPTION OPIOIDS: WHAT YOU NEED TO KNOW Prescription opioids can be used to help relieve ajdbzdal-zq-fcrsoq pain and are often prescribed following a [...] be struggling with addiction, tell your health wound care nurse and ask for guidance or call [facility] [facility]?S National Helpline at 4-139-781-HTZE. x Source: [place] Department of Health and Human Services/Adeline (more content not included)... [facility] Registrationon 12-27-2022 Registration [id number]#1. 00CD:127 [facility] [place] 12-26-2022 Consent [id number]# 1.00CD:127 [facility] Registrationon 12-26-2022 Registration [id number]# 1.00CD:127 [facility] Consent for Treatmenton 12-08 Consent for Treatment [id number]#1 .00CD:127 [facility] Discharge Instructionson Discharge Instructions [id number]#1 .00CD:127 [facility] ED Clinical Summaryon 2022 ED Clinical Summary [place] [address] ED Clinical Summary Person Information Name: RJ ELENA [place] Age: 32 Years : 1990 Sex: Female Language: Peruvian PCP: Mark Pitts DO Marital Status: Single Phone: [phone] Visit Id: Visit Reason: Foot pain-swelling; ROLLED [...] 12/21/2022 14:54:11 12/21/2022 14:54:11 12/21/2022 14:54:11 ADDRESS: [address] [place] [address] [address] [facility] [id number] PHYS DOC NOTES: MEDICAL INFORMATION: Prescriptions Given: [...] Ankle Sprain, Phase I Rehab; Ankle Sprain, Kxzz-qu-Cfcd Follow up: With: Address: When: Mark Pitts [address] [place], [place] [id number] Business (1) In 3 days 12/24/2022 Comments: Follow-up with your primary care provider in 3 to 5 days. If symptoms worsen, do not improve, or new symptoms arise please report back to emergency department for further evaluation. DIAGNOSIS: Left ankle sprain; Sprain of left foot [facility] ED Note-Physicianon 12-22-19 ED Note-Physician Basic [...] and Complexity of Problems Differential Diagnosis: [] [facility] Data External documents reviewed: [] [...] House In 3 days 12/24/2022 EDT [address] [id number] Business (1) Additional Instructions: Follow-up with your primary care provider in 3 to 5 days. If symptoms worsen, do not improve, or new symptoms arise please report back to emergency department for further evaluation. Patient Education Foot Sprain Elastic Bandage and RICE Therapy Ankle Sprain, Phase II Rehab Ankle Sprain, Phase I Rehab Ankle Sprain, Vcnd-hw-Urty Attestation Patient seen and evaluated by the physician assistant chief nursing officer. Attending physician was present in the emergency department and supervised care. This visit was performed by both the physician and an APC. I performed all aspects of the MDM as documented. This report was transcribed using voice recognition software. Every effort was made to ensure accuracy, however, inadvertent (more content not included)... [facility] Comment on above: Result Comment: Elec [...] on your foot. General instructions ? Take jvts-pbz-hbsvfbc and prescription medicines only as told by your health care provider. ? When you can walk without pain, wear supportive shoes t (more content not included)... [facility] ED Patient Summaryon 023 ED Patient Summary [place] [id number] Patient Discharge Instructions Person Information Name: RJ ELENA Age: 32 Years [facility]: [id number] Arrival Date: 12/21/2022 13:23:04 Discharge Diagnosis: Left ankle sprain; Sprain of left foot Primary Care Physician: Mark Pitts DO Provider Information Primary Provider: Charlie Rubalcava DO [employer] Supervisor:None The exam and treatment you received in the Emergency Department were for an urgent problem and are not intended as complete care. It is important that you follow up with a doctor, nurse practitioner, or physician?s assistant chief nursing officer for ongoing care. If your symptoms become worse or you do not improve as expected and you are unable to reach your usual health care provider, you should return to the Emergency Department. We are available 24 hours a day. RJ ELENA has been given the following list of patient education materials, prescriptions and follow-up instructions: Follow-up Instructions: With: Address: When: Mark Pitts [address] [place], [place] [id number] Business (1) In 3 days 12/24/2022 Comments: [...] Ankle Sprain, Phase I Rehab; Ankle Sprain, Pcgb-af-Oxfq A MESSAGE TO ALL PATIENTS REGARDING OPIOIDS PRESCRIPTION OPIOIDS: WHAT YOU NEED TO KNOW Prescription opioids can be used to help relieve trylsucs-ty-zoolwn pain and are often prescribed following a [...] Drug Administrati (more content not included)... [facility] XR Ankle 3+ Views Lefton XR [...] mGy = . DAP = . [facility] XR Foot 3+ Views Lefton 12-08 [...] mGy = . DAP = . [facility] Registrationon 12-16-2022 Registration [id number]# 1.00CD:127 [facility] [place] 12-15-2022 Consent [id number]# 1.00CD:127 [facility] Coding Summary.on 09-06-2022 Coding Summary. CD:[id number] G h0bWw+PGhlYWQ+QR2FYMX dZ92ejCJtiF6CX5qJCX9C YNOUGWWKDV4GQZ6ynCN9Q OwdQ5OrzxVr FmqegIOwYQ03ILh0LVV9f JyyLBedxO9aoGHnX4z8Cy EnRU98gS19HUltEFZxUsS 3LjZpbjsgbWFy Y8jsMzDmvMDcXle+PHRhY mxlIHdpZHRoPScxMDAlJy AlnItzVL2rXo3sJMYbUDJ vbGxhcHNlOiBj b5xfAUQjPUprOI6seXmkG 3VrvVS4BTFoq7c5Wy09dN I+RUEqLLN3rWguZVwwl42 5IeJhx6zdSND1 aYEaZNfkKCW6N92tg7Q7Y PHsYJMcLRZ1nDF9gQ9pfR zdoylsZ2AwsESbTeS1VYQ 8rAAbmH6jeCso xriexW1hJkz+E97XAS1BF GDNOF3YOrf4F3SyPurxpR I+NT90JFPkUX71tPNmdKT vi9wqwCe3TnBr XGMsBZZ5aOipCHynp1KsX SNqL53jdPFkh1T6WQWicT dgiIXsJgYjvKB0dO2nEUu zhigxr7mkjcfk Jxfxo6kscn46bC06V91qP TduENXqGJX3BLDmEFDxbC xaft0mzL6eTq5+NNlkv7x fe6mwtLv3GmUg XNQsvlPbzPcbDVB1x5YhT e95W4YlnIdni3YrPbp1gl 63hYSfl0K2tRC6BYchBOL udW0yIYxzFdB9 LFLzGgRimR76rLEeVEikA m9cqPbdrYkpOS0aIWKrwy qjWTApfA7cWBWyuXUzbQt nGJ4zGZEgwjng t021UhIiJGK6XWNsqEBpQ 8JtbN6dXeKvOHDbOVRnI6 KyrUPpIJwzZ914ZPtyCcD 3NYAcjkTdT8Ui ICKxuNggJtP6k4Y0Lr6Tp 2AghjhcUXY8JAgvBBUlQi U6GtCxBbA6T7PcDsj5UYO dfEeaRC5fM8Xl SOCwurrkymgrqPP2IHYaV JRnoY35lYXrCAgjBs8kb5 Q0p525DNLeVAYsqH37Tu0 udDogMTBwdCBU zJ6faifcm8mdoihnNbTyA KXoUNn8HTw0SXLzbKqyEd EyRKH9DbA8EPW1zAZagT8 okIewqdlehK3r Oyc+E98cmZ7xNXL2UZI8w ogaBLUiwvGcQE49KW11O2 RyPjwvdGFibGU+PGRpdiB pqBfqIU6vBoKi p2sdx6VtOHkvF7YzQRJdR NxdUaq7ZMCcPKT2nOP5fE 2bYNLqAUjyx4G5aZS3Q1Z azeXkbv9qk9qs POBzLBjeC09abKCtk9G0K CJesTF2OPMxbGekYiHohY 93Oyc+SYLklBfjq8ApRlm fq4eqs4womWv0 UxUvGEMuaoPcxBdpVHA4g 1BvCz29G58hXEhdJPIrSZ IoOQTwNTUcpOwsvd5inR1 wIi8+PGNvbCB3 oTE1eG8fFUCoWeW1TUhsQ 788BfWetJSwWfpwt3cal4 kqvPr7GqYySYHiipIecQz sCPT5f9KdBv39 N52pAWakIWTvXIUiLGQpV IUcoNrvxn4nyA4jYv0+PC 0jo3hltb56gO88vMN+PHR iICI5uDjgWDnw PTMvgN3mEDmwRiJ1YMBgE tEmeJ10fHLvAExsMr8boC dteUmrBY0pCZAdqtrxq62 6HcFhv7sfSJRq kRWzOFemMJC0J25qa0O0G CUuJZCxAOL5iRG1fJ7bxF lnbjogbGVmdDsgdmVydGl nVIqqXWkzG775 IHRvcDsnPlBhdGllbnQgT zGzWLb0H2HvSts0HQOcbV dvET7gwUYnIDuqAx3bsTv ytEtlHH5bENIi ddasr784KoMbv4ayFBEnr CRyMWopAJU9U77qf6G9GZ NlYTDvDJO0qLY4kD3vpDr nbjogbGVmdDsg erXeyOedXMmlZYkzL437A HRvcDsnPkJpcnRoIERhdG G1TF74ZL30wMJvi7D3cRC 1Z6NnPUGreqpz gttozUW1HGCjWPTkrX80S p9mrKzkHj2qIEChYUT6OI BvxZWjZ6KmwK7mXuReJJW aXNLlJ4JfkDPw TIqyN244PCphHtM1LIPlj mEdL2UjMHJpkAatDoQ9c2 S7Je4BI9S5CQ30EL57eZE xf3I8xZM4D8Hd FKBirfgfvcaoqON6RSDbU IUfcF44Ak0mnGqsXr6uKA BmPAK9HLWcuPYvF6DrzF4 yOiAjMDAwMDAw G2GljSGjSOveO039ZXaqP aY3YBTzliKcB5GaIDQktC jlGsY1k5F7Zs8RATn1EI9 5RM27jZMxu3N4 fLT7N7UtJUAdunayalukm WN1ZVBrQCWbjH39Zp3ugX hdOe7yKERtZAI1PVAjyZF gQ3GuyG8zHoHk SOWoWTSmO8GrvSRyAHlkJ 991LRmkLeJ9EKOylyQxQ6 ZtMVKapOwxGtD5o5X5Nt5 ZCSVtVD76QWP8 yAK6LX47TG82M0OhBzfex GFibGU+PHRhYmxlIHdpZH RoPScxMDAlJyBzdHlsZT0 aOd8oBIXnOWMb xNqawYVvKmKkq2cbCAKvG NhlWJ8kwFacM6XunLD5XY Xwq8x0Yo89G55sT4WmdBN +RJZwoGE3aMA6 bW8qSiIwFxY3AEbkS025E jLyvKClUpqom7sqp7lcjD g3UnV3PZJtaiXayVewXPR 6k9MdFz45X82q IHdpZHRoPSIxNSUiIHZhb Wrzhw2cyO2jIc6+PGNvbC P5kQG4sT6dZnEyPgL7PYv fE054GuIcyVGg Dxpmo5ygb2dnsRq2QsHzD NPnkdSojWemDRE6n7ZoKj 01A8GkhYypv2KjIzo9fh8 3zIYjj1F3nYD6 G6WgPKWznwlegOIcdLpsO Q2lJRQxzpfuOOMolH8qLC HuP5x9EtVpCuC1AOtuT8N wvxI0VZBfoVJz FAmzBFS8H08xo0C0OOMeI XMjVYC4aYB7xL6zsXyphx ogbGVmdDsgdmVydGljYWw nDXwlK991IQCh kMbcAWFnlI1aCBOwkJQxz FviZB2zFMHjanhtSvNSDH ZVQVwpUXWNS7MJLLuBPLE gRzwvdGQ+PHRk LMX8aOtjJQylKGBaeC3aS OAuT8j0AhBtSbI3WGmvY4 FmXFJyjhteAx84mU1eZrO xAlU9SFpzF9Nc tpI5EKSdtWUdCQyiDQF8U 35pc0I3ZUTkCIRpVAD5yS E6vI0gbQphsnvgsYEugBw gdmVydGljYWwt KBasW437JWVbpBenUjVcS eH3QsO5THP3I8FfOpp0MF CikOsyBP5vrHBnKRxnXi8 wyKegnUvkKG1m VHGpykpdUUUeaX7bCULab HFdsMzmWV4mXHOludvei1 06MxTyZOQ3JFGrdPGpI5S fyX4cGhTdJWDf FLYlS1QsvADnGYzhA972X KmlMrR2ABBgrfGrJ9EiKV PlgRvtPkA2h4S9Hl7gNdT ZZWFyczwvdGQ+ TSNvKRC2hRudCHmgPCZxa N4xSSPcI4y7OeJxWuF2TD flS1WaLNTlfteeYa37vY5 nTbNbQsE6RZgd I8NzooU4HMGfqRNfIMvxG QN7C42ze0V6AHHmHHJyLB W0tXA9tY3gsKlkhxuscMF mdDsgdmVydGlj CVmkVRupR439JFWqgBfwL kZlbWFsZTwvdGQ+PHRkIH M0wKivUXhdPLSisO3mTKM wT1x9GuPaCiT2 IHhpK9XkTBUcrcpxZa49l D2dQjPuXiR1ISpyE4Ontl M1KYWmzBNiKAenXCY1W55 yu4K0JPLjXCMz ABM8mCT7uV5vwEadesedt GVmdDsgdmVydGljYWwtYW eiO995LKQzlDptKtLwVTI lOQ6jmOhltLY+ DR99sn53Y7XgNxpiPxv0C KXbOZE7rDX9yQ4eWVCnSW vlp7K0kIH2B2UgvbWkeh0 pb0qmZYFrMBiy Y25vxGEgp6S8HCJjoNT7I UStqOlfStWksX35Bqe+PG ZeqLwxx1CdErbiz3wqt5y xuIa5YqFlSOAk zpBvxLmgWEW0r9AkRu27R 29sIHdpZHRoPSIzMCUiIH VxbBjwsm3enG3pOt7+PGN haWT9oKR3aU7b ItWoDhU8HNviR114SbPpq MUyPqrrd1geu3hdnAe9Ri CxRPMijsCskVmqKXV5m4K eUj82V1SkzWla a6AkGgo9dd24vZNlz6E9u DM1L8VoVAEesggvyYLsaP thTY3pBMEnsitxSTPkqG1 cIMKrB3k1GeHw AcL3RAelJ5DhmaQ8XSJjd NVjBZAnpUHWtT4ahubbl1 sxrnuiQsSpVAFuJBd2UOd 0LWFsaWduOiBs KBL5DyW8CGP6bVPlfT5ed FejvoofnC3tLed+UGh5c2 brdAPmCM7ltVB2RP38MI8 0fDJsv6K7eAB3 S9SqPZEltdrdfakqzUW9H MDiOHVyoG23Cz8tsKpuIu 5fRWEpSDZ2VKGrwFGwG2J xeP7pNrIpKHYy RYFvE3OhuJFdCAxrQ716M OzfLaR8MXRgugDgK3AuTU EzzVueAwF3q3B6Ma9TNP7 3EE31IA34dHGb i6N3wSE1M7LhRQAmzlolx nwrfOG4VYOuANJsoS56Eb 5hbTtdWr9yCQGcHTU4GEN klIYnF4MjkA7v CcEuQZEwAPNaU1OucPHvK RquP205BVhzCmX7NBUrui XpT0ReDWPceRofVzG9h5I 2Tl7VRm24FZ00 DT51iKVlf2W2fJH3T5OjE TAjywdagvwyaBT3RATcSL SbzZ69Pt3wvOnoVs7uOYB bVGQ2RUMxjQUa W7NyiB8dEuKnTLExBBWgE 8YvbBCsTUxwM228ABhhBt K2YUUgtsGaJ0EcGZIrvWy jPxD3m9E9Rx3W RYaewzb7J5VeTcqptQG+P L46JDFfFE58gDZgtEQse2 ymmKy1OiVaBDHuZFO6fOs mTMyab7FsSZOo Y29s (more content not included)... [facility] Coding Summary. CD:[id number]:[id number] G h0bWw+PGhlYWQ+AF2OBND yB38hqBHywD6GY5oYWP5U JAHUSMNGMR8QXH7erPT0U XxoW8JsmgFf QyuqkZDnPP92VMm7KEP3k QraFSasrU8xeIMzN0p8Bq GmTJ37nQ80WWnhLXBkZnC 3LjZpbjsgbWFy O5moYfEwaXDmKpy+PHRhY mxlIHdpZHRoPScxMDAlJy BkkIdmGW3vVv2wEUKuHWF vbGxhcHNlOiBj g9naNHSpFPdjRG9mdKdkV 1VszRB7UDOha2f8Nb66qM I+UZNbJSM5lWucPZmqt18 3OgWri9kgRSJ3 uMUvQFzxRAN1J44dj7F9G HYbFBZuBPF8iUV8pF5vjF pwbaixT5DgmAIcEqJ6SOG 8yAQivF1lpHhe pqfkyV1iIxm+N38UJL9MB VXUXM9OKgk8N4NsAbuwwE I+LU15GNLvPQ34eXNwaWD py4iliHk5YiVk OAQgHMI7mKeqZLzdt1OhD WKvS84ucQKyk8S9TYZzbS cczCEdPpTxrNO5oO4xCYf epstxb0wanjah Yrktc0nwvy66rG17P07zQ DbeGGJgGBF7MCYaJFEhoT swtf3ffS3gHq6+DEcvr3y os0omjJj3SfLu CRGgzuGghHuoGEW2e0ZeG k83Y0LvvNoxk6KbWuh2lu 02nQCob6Y2cCC8BZkwPGO qtZ7hLTyyYjW3 PMMaMsEapC44dINyJRbnB q3dkKvpaTvgZM4qJYWdtx xqUDLdwI2mFJTxeSIxjZj zQD7vEEIboyer u425JxAtRPV9HVDmiZIgU 6UvpZ5nCkPpRAEzQVJrD9 DqjLMnEIfaC363KXvkMmP 1LSEwlgEzQ7Sk YKEktSntDpE8k0U8Hx1Hq 6TekfivOTG3CYcwNIKkNt W4HiSrOsZ5E1DsRyp9LQE ddWazWX5jF6Ez ITJyvcuyfgfrcZB5GLDsB ZEuwN60ePCdOWkiAk9tb5 L8o250SCBoTNTozI79Tv6 udDogMTBwdCBU tV3tljgzp6gkqdhbFqNyY FPiKOw7JUk7YXDesFcgJb QeMEX0LhV7LRV4wJFnfN2 wmFlgypkfpA0l Oyc+E05fwI0vWST8SVN5j evpWIXjysApDH82LF77D8 RyPjwvdGFibGU+PGRpdiB nfMoyBE3jVwXc d7vzd6EcJWzoQ5BaMFOjC RogLqr7AREsOUE3yMW6aG 4uKZDlGKdlt0K7eNK0P3T wthUerq5ff6ls PSMtTOwsN70kmLKfq1R4A KKanLY8PXNnnMiuOfCppY 93Oyc+ISTueHrko7VxArt cy6mck4fdeFu9 ImAdDUFgjyNboLaeFYT4c 3NeWe61L01kBPrqXHNuQO PaHYIjXLHrtTzxwm0koL7 wIi8+PGNvbCB3 jKJ5mB6lNBBuAjC3QVraK 447YjGfuOGiQzlap6yva2 txvZt9NaWbLSXezbTawLd pGIY1q6JcPb52 U82pLOtmPXDnLAJhNIDpK QFgwFpmsu3puD3sIy5+PC 6yv1ptba31aM93cWR+PHR rVIZ5cFxfKQzt YHKvaV0oDGdxEuI8NISiO jPvwJ16bWIgGEorYy7kbR brvXkjNS5dQEUrmjfnw10 9RdHxh5ouBQVy kIWpLDjwAVT2N97pd5L6T UToYVEbZFA5wBV9hP9drS lnbjogbGVmdDsgdmVydGl gAPljMIjbY198 IHRvcDsnPlBhdGllbnQgT xBjOSs0O9FhNhg6ISInxP swFD8ktSBpLJuaVl9fhPo bzVgtPC9sVNTn asvnw794RsEpj7bxXCRwp EWvQVxpJHV2K58xs4X0HB BdTKKlBWR4dAT7qJ7vdAm nbjogbGVmdDsg vvBkdJjhWDtkRUleH167Z HRvcDsnPkJpcnRoIERhdG C7JJ69DV68hSSmb6I3wPR 9I6SwJDPsgtpu tyjxjUS4CEQuBTZxaO99Y w5uhVhkYn3eATKqAEZ5QY FpxFJiC4MrlX5lUdLbSUR jYRKsA1FfhJCh DJjeI378HRyjVbJ0RRZzm yVcT3EzOOKfdSgqSsN8d9 P4Go0UC4A5XR81JQ82uBB el9Z4fGK5C1Go UQFivyqbcvwubAY2HXKtF NTfhE59Ua6agPzfUj8zJV BkERH0UEJlhVNlY6HwnW8 yOiAjMDAwMDAw H5RbhGFqXAjxC913RVjeI rL9UVLnveViW0QiDLZmlY rkNlU9n0T7Qc8LWQg1LU4 1AA15sFBbf5C4 tYS8J5LgCLAqxpibverwt DR0PUScWUHlrA10Bp8ohJ dlQu0fAREqJAN1SUOwxZH iN2FslI0cQcRg UPScILSjW4DoeEZtWAevA 985IRpeArM4RMXjhaQhP7 UbYDByxRmqDpP7z7L8Jc2 KEOYfCB80ELE5 dPO4BP46KR60A6ClKmzed GFibGU+PHRhYmxlIHdpZH RoPScxMDAlJyBzdHlsZT0 bUa7zRPHpJHJt vVfelOViNaEal3duZILaR CaiXD5vmUjpI2KslYF9VN Nol0e2Vp78R37bD8XlyEF +PQQddRW1oHM2 lE7vUcTyOuK9IIwpD245B yLlaCItWysij3hhn9wjgA h2HtF8IHMmovYiyCmeCFD 2n5RcWl22P47q IHdpZHRoPSIxNSUiIHZhb Tuhsu9fhZ5tIy9+PGNvbC V4hMM3bL7yHlNiTiG6VFy wL452AbEfaXRi Osfjb3ikl4kpxMq2QeHrH ISqrpTgpWgvUYT7d7OfIj 76T8ScwOpcm9VkAka2jz9 9iCGrw3Q0zEM8 T5TpBTOeqcsvgBCcnVnjD A5mJEQpbhyfQHDwaB8rNQ CmD2h3LcWyJuE8SNvcE0O ubdT5PODviHJr XOkeUQG5Q73yy0R3BFXwC MNyLJF4lTG2nA0uqXlwom ogbGVmdDsgdmVydGljYWw pBLnbI405VZXo lHfqGEGdqY3gOFFmwZBgo OlxGD4xQHYqobnoGiVJJU DQHNmiQONPJ4MBKZuUBHN gRzwvdGQ+PHRk YSW8fIckKKsrKXCdlK1iV FFiX3t8KvRfRfK0SKlkL7 HwHMFemhnpWd28vC8xPaD bKiG7PDzmN8Yv fmB3IAEywOAgXAqfNPV5X 96cu9X8TAFxCRWpTNY8aO Y2zL6grAmupmkfuPUyqOo gdmVydGljYWwt IJquS449TAEikFwoGlKyV fX7GlP2EVM0E2WsFzo3CM GyaZzkMM6ztVSdBNdeSg5 ybTpydDsdSI6x OISkwktuXGUcpX1wAMNur XMemDlfOO8rYHBrxthit6 54AxBxZCV4ICIttRVgQ5G imB5iFhWnURDa PEHrC3UbnNIxDVyeB880R FjjQmO2NNVvodLqM3QxFP BtoIkfXcX3g3V4Cz8yYqQ ZZWFyczwvdGQ+ AHEoUYA3eQpoAJliZSPlf H0lDEIkI0i1NcYvHxV8JF jeW8QaAIYspjenAt67iC9 wYhCoYcE8DGsv P6YlpmI3JCSppOHdMYvhQ YN1R43sb2S8UNVyWDCfRB B8hSO6jV3bcQhqwokrvCE mdDsgdmVydGlj KTzoQUxdG177HUPygEazK kZlbWFsZTwvdGQ+PHRkIH P6zBylFCjiIHEthT9gMMC mX5m7AkZbUgR9 ACkmC9RwRCSoohrzMo55a E0fCsKtZzG3SGnrA2Ozxm Z3BTKwpUAgAUgzYKF5W97 mn7K1BTOyGCXs BZI4aSQ8lE9ogJviqfvun GVmdDsgdmVydGljYWwtYW mfN668AQPmzPspGkMtDFJ oZK8yoXzzcDS+ FW99fs05N0KoRycyHlu5S CPbMSA1nPZ7aO6yTNCxJF xgg6G4iXP3A4KvlhKjlv4 ea3jsLWWlKVvf F13zhBJos4M5KWHayYY4K RWogAemGaZxhP35Hre+PG LtoUvtz9CoPbzvj7abf6m aiFd8NwGoGCTb roGfiUmdCSD3s2HxVb10M 29sIHdpZHRoPSIzMCUiIH ExuUkenz8akR7cGa1+PGN wxRJ2dDS4kW9u CiFyQrR0GRhnG780KfSxo UJuFhojf0ykn6bexBt4Uk GgCTCmmgImgDwcZPK7q2Y xMw81J8KheTry x3VdSzq8bt95hDClo7K5t PJ5T2TdKNKfcoaksVTnfX grHJ7cQDSnfpvrIUZbeI0 zDVNpV9x8ZoGe VkI3CHpqG1MpesS7VUSng JZcLNYaeGYItJ5opyzmv5 skjggeGfYjAJGcHFs1PAf 0LWFsaWduOiBs WIG6DtJ8YIM7aEEieT7ok AdtclutyA9dEag+UGh5c2 zzxXAtQM6xsRU7OX67LW1 1pDHpb9J6jPP4 Z2HyIMRoyyanukubuGU6B RXbUUQoeE01Ul6rrUssBl 2dPLSzPON5MFToeNKgG9B mcS0nJkRxOVVi KWCdM9TsfTEzCYicV213L RazPjN3ITGmyyOgG4RvHC OtwRoqBmS7q0J3Mn4ESS2 2QW33TK45oVBo g0K5eJI3B7VjFXPskuuzw uykyBE8IEIaINYqiX28Hz 9caZupEm3dUKFlLGL0JVM ibUVtO7ApdM4a NzMkJIAaOQGlY4GqaMXgV HoqI837OIiuQhR7DZOwvg FuA2HqJIQiwJqkUdH7u7T 7Ww3GTi92BF74 SE89fXTsd2U6fSC0Z5HgW OMptrpyiihudNH7LHNqIQ LzkU98Bz7mfYcsXq2nODV vZDZ2FUGnwRIb Z7OenS0rCoPkPPXhLULqR 7GqzZWrKKzlI935OXclXq J0FLUqimIqN0VdHBZxfWf bDhY2p6Y1Mj7U TNxvvbz1L7QmXktziGD+P Y16IRKlOI46gXNmbFLjz3 slfAs7TaCkUEBgULY8vVm nMEaxx4NfHGZo Y29s (more content not included)... Normal [facility] Discharge Instructionson Discharge Instructions [id number]# 1.00CD:127 Normal [facility] ED Clinical Summaryon 2022 ED Clinical Summary [place] [id number] ED Clinical Summary Person Information Name: RJ ELENA Nicky Calista/[facility] Age: 32 Years : 1990 Sex: Female Language: Peruvian PCP: Mark Pitts DO Marital Status: Single Phone: [phone] Visit Id: Visit Reason: Rash; Allergic reaction [...] 09/05/2022 22:58:39 09/05/2022 22:58:39 09/05/2022 22:58:39 ADDRESS: [address] [place] [address] [address] [facility] [id number] PHYS DOC NOTES: MEDICAL INFORMATION: Prescriptions Given: Medications to Continue Taking That Have Changed [facility], [address] [place], [place] [id number], [phone] START: predniSONE (predniSONE 20 mg Tab) 3 [...] Refills: 0. PATIENT EDUCATION INFORMATION: Instructions: Nate, Maep-he-Qbig Follow up: With: Address: When: KATJA MCGINNIS [address] [place] [id number] Business (1) In 3 days 09/08/2022 Comments: Follow-up for further evaluation of your urticarial rashes and reactions. With: Address: When: [address] [address] Business (1) In 3 days DIAGNOSIS: Allergic reaction; Urticaria Normal [facility] ED Note-Physicianon 09-06-19 ED Note-Physician Basic [...] that she has never follow-up with an cnc cutting operator before. Denies any chest pain. Denies [...] and Complexity of Problems Differential Diagnosis: [] [facility] Data External documents reviewed: [] [...] I do want her to see her cnc cutting operator. Discussed return precautions. Follow-up with your [...] Once, # 1 kit(s), Refills(s) 1, Pharmacy: [facility] 1 (more content not included)... Normal [facility] Comment on above: Result Comment: Elec [...] Being allergic to foods such as: ? [place] fruits. ? Milk. ? Eggs. ? Peanuts. [...] at home: Medicines ? Take or apply jenz-obn-ispokiq and prescription medicines only as told by [...] causes your hives. ? Take and apply oaxm-jwj-wbageop and prescription medicines only as told by [...] Reviewed: 01/09/2019 Elsevier Patient Education ? 2019 [employer]. Normal [facility] ED Patient Summaryon 023 ED Patient Summary [address] [address] Patient Discharge Instructions Person Information Name: RJ ELENA Age: 32 Years Arrival Date: 09/05/2022 21:00:52 Discharge Diagnosis: Allergic reaction; Urticaria Primary Care Physician: Mark Pitts DO Provider Information Primary Provider: Quita Clark DO Advanced Loan Processing Supervisor:None The exam and treatment you received in the Emergency Department were for an urgent problem and are not intended as complete care. It is important that you follow up with a doctor, nurse practitioner, or physician?s assistant chief nursing officer for ongoing care. If your symptoms become [...] Instructions: With: Address: When: KATJA MCGINNIS [address] [place] [address] Business (1) In 3 days 09/08/2022 Comments: Follow-up for further evaluation of your urticarial rashes and reactions. With: Address: When: Mark Pitts [address] [place] [address] Business (1) In 3 days In the event that this physician does not participate in your insurance network, please consult with your insurance company to find a nearby participating provider. Patient Education Materials: Hives, Wqxa-fj-Qpec A MESSAGE TO ALL PATIENTS REGARDING OPIOIDS PRESCRIPTION OPIOIDS: WHAT YOU NEED TO KNOW Prescription opioids can be used to help relieve yycdtcvi-pr-bimxxv pain and are often prescribed following a [...] of opioid (more content not included)... Normal [facility] Monitor Recordon 09-06-2022 Monitor Record [id number]# 1.00CD:127 [facility] Consent for Treatmenton 08-11 Consent for Treatment [id number]#1 .00CD:127 [facility] Discharge Instructionson Discharge Instructions [id number]# 1.00CD:127 [facility] ED Clinical Summaryon 2022 ED Clinical Summary [place] [id number] ED Clinical Summary Person Information Name: RJ ELENA Calista/[facility] Age: 32 Years : 1990 Sex: Female Language: Peruvian PCP: Mark Pitts DO Marital Status: Single Phone: [phone] MRN: [id number] Visit Id: Visit Reason: Cough; Diarrhea; Fever; [...] 09/04/2022 14:23:43 09/04/2022 14:23:43 09/04/2022 14:23:43 ADDRESS: [address] [place] [address] [address] [facility] [id number] PHYS DOC NOTES: MEDICAL INFORMATION: Prescriptions Given: New Medications [facility], [address] [place] [id number], [phone] brompheniramine/dextr omethorphan/PSE (Bromfed DM oral syrup) 5 [...] Infection, Adult Follow up: With: Address: When: [address] [address] Business (1) In 3 days 09/07/2022 Comments: Return to the emergency room if your symptoms get worse or any new symptoms DIAGNOSIS: 1:Upper respiratory infection Normal [facility] ED Note-Physicianon 09-04-19 ED Note-Physician Basic [...] and Complexity of Problems Differential Diagnosis: [] [facility] Data External documents reviewed: [] [...] for cold symptoms, 200 mL, Refill(s) 0, [facility], 160, cm, 09/04/22 13:15:00 EST, Height/Length Dosing, 85.6, kg, 09/04/22 13:15:00 EST, Weight Dosing Influenza A&B Ag Rapid [place] Antigen [place] Disposition Plan Patient Discharge Condition Stable Discharge Disposition Discharged home Discharge Prescription List Prescriptions Bromfed DM oral syrup, 5 mL, Oral, QID, PRN Follow-up With When Contact Information Mark Pitts In 3 days 09/07/[address] [place] [address] [facility] (1) Additional [...] Current, 03/08/2019 (more content not included)... Normal [facility] Comment on above: Result Comment: Elec [...] to help relieve symptoms, such as: ? Xwqo-rii-qdxujkh cold medicines. ? Cough suppressants. Coughing is [...] other clear broths. General instructions ? Take drtt-pvw-enpyrlw and prescription medicines only as told by [...] and water are not available, use hand career technology teacher. ? Avoid touching your mouth, face, eyes, [...] common infecti (more content not included)... Normal [facility] ED Patient Summaryon 023 ED Patient Summary [place] [address] Patient Discharge Instructions Person Information Name: JR ELENA Age: 32 Years Arrival Date: 09/04/2022 12:56:58 Discharge Diagnosis: 1:Upper respiratory infection Primary Care Physician: Mark Pitts DO Provider Information Primary Provider: Solo Kimble M.D. Advanced Loan Processing Supervisor:None The exam and treatment you received in the Emergency Department were for an urgent problem and are not intended as complete care. It is important that you follow up with a doctor, nurse practitioner, or physician?s assistant chief nursing officer for ongoing care. If your symptoms become worse or you do not improve as expected and you are unable to reach your usual health care provider, you should return to the Emergency Department. We are available 24 hours a day. RJ ELENA has been given the following list of patient education materials, prescriptions and follow-up instructions: Follow-up Instructions: With: Address: When: Mark Pitts [address] [place] [address] [employer] (1) In 3 days 09/07/2022 Comments: Return [...] opioids can be used to help relieve esotklzf-lm-oukgzi pain and are often prescribed following a [...] care p (more content not included)... Normal [facility] Influenza A&B Agon 3 Influenzae A Ag Negative Normal Negative [facility] Comment on above: Performed By: #### 2 [id number] #### [facility] [address] [place] [address] Influenzae B Ag Negative Normal Negative [facility] [...] days after vaccination. Performed By: #### 2 [id number] #### [facility] [address] [place] [address] Prescriptions/Work Noteson 0 09-04-2022 Prescriptions/Work Notes [id number]# 1.00CD:127 Normal [facility] Rapid COVID Antigen ([facility])on 09-04-2022 Rapid COV Int NEG Ctl Pass Normal [facility] Comment on above: Performed By: #### 2 [id number], [id number] ####[facility] [id number] [place], [place] [id number] [address] Pass [facility] Comment on above: Performed By: #### 2 [id number], [id number] ####[facility] [address] [place] [address] SARS-CoV+SARS-CoV-2 (COVID-19) Ag IA.rapid Ql (Resp) Not detected Normal Not Detected [facility] Comment on above: Result Comment: The [employer] System for Rapid Detection of SARS-CoV-2 is [...] or revoked sooner. Performed By: #### 2 [id number], [id number] ####[place] [address] ADMITTED TO INTENSIVE CARE UNIT FOR CONDITION OF INTEREST:FIND:PT: NO [facility] Comment on above: Performed By: #### 2 [id number], [id number] ####[place] [address] EMPLOYED IN A HEALTHCARE SETTING:FIND:PT: NO [facility] Comment on above: Performed By: #### 2 [id number], [id number] ####[place] [address] FIRST TEST FOR CONDITION OF INTEREST:FIND:PT: Unknown [facility] Comment on above: Performed By: #### 2 [id number], [id number] ####[place] [address] HAS SYMPTOMS RELATED TO CONDITION OF INTEREST:FIND:PT: YES [facility] Comment on above: Performed By: #### 2 [id number], [id number] ####[place] [address] HOSPITALIZED FOR CONDITION OF INTEREST:FIND:PT: NO [facility] Comment on above: Performed By: #### 2 [id number], [id number] ####[place] [address] STATUS:FIND:PT: Unknown [facility] Comment on above: Performed By: #### 2 [id number], [id number] ####[address] [place] [address] RESIDES IN A CONGREGATE CARE SETTING:FIND:PT: NO [facility] Comment on above: Performed By: #### 2 [id number], [id number] ####[facility] [address] [place] [address] Coding Summary.on 07-28-2022 Coding Summary. CD:[id number] G h0bWw+PGhlYWQ+OI7GKXU uY03okBIkmB9MX9eWIO8J EUXVHYAZVO6BZB5rzYQ8D XmlU9JoluXr QtuhtFMmUI87MHk1MFC3b StjMFjmvC8gpLFkU0i4Ks WcVP19bV69IGzbJWBgKgH 3LjZpbjsgbWFy D5bjYzFzhJCzBkb+PHRhY mxlIHdpZHRoPScxMDAlJy QhqAgkIG8kMf7jKGZrEPH vbGxhcHNlOiBj n4zmXTKqPAytVG7moBzqX 1DjzQG1EXGts2x1Bk00pJ I+JWPpVJT8tGweWPqtx53 3QmFeg4exEDB6 aWRzAElrYKH2O62gv5C1I MIjVTIgMTD0aEM8oO2lsQ sghalbM2JivFQoDhW5REF 0uCAjeT7ebGqf ziytcG8eCyl+N55ASW6CV AFPXV9SZub6S5RkDzqdeD I+TI12DIWyRM49oHVsvYL dl2ficGj3FpNq VBCfAES5gNffXAnbm4EcP HIpY68tzTXxp3U1GAMrbK zslAMhAbMcsHY6yB8cDPm ruyniu1vbcaqy Jyonx8cesh72qQ77S68hE YogUALiTDF9CEPtCJGnwJ mghy2quS0kOc4+ONwaw9e ww7qptYk7TkXv ZJMhvqQdgCkaSFU0f3NcJ i95D5XndFtzn9PuVad0fk 66cPGmr9M5aGA1BUrhELC kuI5kFAgsGwR1 TSOqMnWnyT57hCMvYVltF o3lpSzmqHkrIP8sULIicn jcNLZbsB1iQESizKKisQr rGJ3bBXOirhac w088RtWiCLC1ESLgvWBiE 2PdaE6yHxAbVETbTSHqT3 HwqIAuIBdpT862UZjoSlB 8YXWrjwRqB4Up SELjuVhkSzF1b1M9Lv0Am 7RtrelyZKY8WEnlWYRyQi J5WzFlSvS6Q4NoIbh9ENE gkCalKA4eI1Jt SDWauhzxwhlbrHM3IKGxL VPpdS96eJAiQSwmSk9ba3 Z7h005QSWiCGEqgX49Tz7 udDogMTBwdCBU yL1pvbcue8buvyliKuQdV FDjYAg3MLj1YKDezDhhOu KtXLQ2LaN9UUJ3kZQekM8 qvVxqjitpnP5t Oyc+I64xgP9zTMG8PPU9g fojAGSkvyChSJ87CF62K1 RyPjwvdGFibGU+PGRpdiB jbAotFE1qEiIm m7itg7QtPNwcK1QfRUHbC ZozEcp9CTVdWWU9tHN0zO 2eBTMpQQeyk5W0oAE2H3J rjsYotj9ll3rt IAHcXBfnE17biUPlg4H9W EQilMM7EBMjnQtfZjFlrB 93Oyc+CKXxlFvtc7XgJku ho1dbp2ljfRc2 SvJrADCcjaGmoLgmKNF3u 1UbWc22W76tPHeqPWQlFH NcZAQtEIEalOquam7jyC0 wIi8+PGNvbCB3 mZU3gI3dLKPtMnE9QNhsL 023DpTvnWYxObroq4pee0 zscTg7ToSmCHQkpcDbtXz aKNV7f6OeRl59 N80bCXegRQSkVHBcBJJxX ZVkzXcwxy2tzP6rOy5+PC 6hd6vlfs82hW78uCG+PHR dTRA2sTfvLBxl CSHpbN4vZLibPjS5OXGwV cEjvB55lFKgEJocQp3msV eskEfrIB4mWKJixzyhq05 1RpAoq8vuWCKu tOHeYXrcQFF5N32iv6G0K FAhHDLxVUO4qHA2vN0uvO lnbjogbGVmdDsgdmVydGl kCQseUWxtL716 IHRvcDsnPlBhdGllbnQgT dJpWEk7Q3EoQsr6CCZyvO wcFP2lhAFpEUqkOt4glDk alGniHO6zPHQk kwdkx974BjCwu9buJYTiq HNlLDplPWJ5T68vt9X9JO GoOVDxAPX1mJM8vL9dgLe nbjogbGVmdDsg wfZfcKeaWEllXCihT041E HRvcDsnPkJpcnRoIERhdG A7EK39CT55pFFyd9P8pDO 9E2AvWASshhre qxtqaXA1DMWwBPDboI00Y p4tsVwpJh0xAWGhVGE2CH BbjBRxH8OwrT9cMgYeYVB gUZTsS5JrfLWa WRsrW199YJfnUiF5RANdr lEeE2MlODEjhEscBkR3c4 R2Ji6AQ7L4RB34HI90qJC ly8M3rQY2K7Ni YEQonwzorwqrcYY7SEJxO RBtjO35Bv0qnFgtYo2mHM WsCWD8GVTsgGVmA7AzuG8 yOiAjMDAwMDAw Y5LxlYXwAOotY412FKoaD uO1YCMbrhDnE9KjFOAmpD scRyC7o4P7Al7MIUc4YR5 4EC34oTImi0F8 aKM7D9NmNFEwduxxnlruz JX6ZXXrKUAdbZ95Wg4hkQ rlWu0dCLFuMXU3ASFmgMU nL4AyiZ4gZgLo VUYgCJYdA1ZbyHZkPPmbW 907SOqpMeO9JAKwksGbL4 BdNIQoiPpkDeP1f4M0De8 MEXZlXI92YRF3 gTH8GS33LN44B8ZpMoqwe GFibGU+PHRhYmxlIHdpZH RoPScxMDAlJyBzdHlsZT0 xAs1jIFUvRUPs eFerjMKeGxByj2moHKEiK ZpePD3oeZdzW8UjcZW6IW Ayr2z9Qg90T33qL4OdfRK +LHLjnFV1aAQ7 xF7pDwYhEtB5CUteX498R rCwtALvByjcf9lxd0hbjC c9RdL6XCSkeaIazYznHWR 6r4OgFf56I72k IHdpZHRoPSIxNSUiIHZhb Wusak2knG4lIh2+PGNvbC V8mVX7xH2qFbSiIbF3NAd zF025BvEydVVq Ewxmw7wed6hdrXw4DsRlJ WRaivWtiVpwNDL7o0AzTk 12M2EauQovm7DgJoz3mp8 3rFTby3E5pCF5 Y3RtDKAqfvmugFShwNpvH C6hOCFppcnxGIGujL5tVW UkK3r8BhMwTgY4FOumF7X pksC5ZHSsmOJz FYutAVQ7B37gp1G0TYJdL MPdOIY5hWP0oA7nkEbqyh ogbGVmdDsgdmVydGljYWw sNRkyB061GKSv fVgvKMHoeZ7pQXChzTCpx CjqQY0tZLSabrilBbKENJ NDCXqnDIZGL4GVSTqORLG gRzwvdGQ+PHRk UON1rVwjBSpxNAIscU7qS XQqR6s1YhRuIiY1KTbkR2 IwRSPpwijiXh09lG5wRwP jPpE3WHbfP9Sr kcX8TCYqaNLdLTfzZVP8H 39ne3G5OXWlJWMwZLL5uL D7kP8hsHpcdbdikZGpaPf gdmVydGljYWwt UFxpF687VVLijAlqWlIrN lF9AiX1YTX0D1DgTmq4GR AlnYxeDE7llECrAZkbSo2 ovYkvcIoyIC8a WJJzxfhyPGUneJ5fHEKow NNjyUudYN1rLHGanifpq9 33NbIySAO0EWZhdLUaD3C wsY5hRdWtHXGi QIGcX5SdgKPgHVtrE682K HonZvC3BUAtcrKuF9MpCX ZhgLlkLvO5t8F6Tp0hViH ZZWFyczwvdGQ+ YQRjRHY8bKwqBEhzXLMdl W9yJBBrH5h7KvFwCaN4AG yiV2UcKJTjipqgUl97rA0 cFpLsTuA9LYlq G8GfpjV8EHQukCLrVZxjW YH2O00ea3E4MDBxYGYtZC U6xDK3uB7mvPtszjkdaNA mdDsgdmVydGlj QNkoHFbaD316TTSmqHcgL kZlbWFsZTwvdGQ+PHRkIH R6aGfeTMhaNNHruN8xLJS mB0v7JtKeToJ6 YXdsE6WfPLLwlenqXe63h I7mBtXgXsM5UWwhL9Uwmj V3SATjrOKzZOkmRFK8G54 bj5O6JIFiXYVr CWI1fCM7mM6edCcvwdvok GVmdDsgdmVydGljYWwtYW baJ185HEUheYcwVlLdQTP qND0nsWkamXB+ WG21dp40E3LpYcxwNrd9T QWqUOS0oZA3aY9tPEBnAV fuf4C0wSQ1Y6XhbnOecu0 lm1xpRPHkSWuy M73wmDVny8O7NMWqvFQ4X TExkMwfYqRdaQ00Dnq+PG LqaHlfa5XjLqnhc9uhq6x tbZo8VjTuNZZt vdJhsFoiVMK9i1JmFr61Y 29sIHdpZHRoPSIzMCUiIH AncPsfdn2jmM7wIr2+PGN uwGK2wCQ8vS1l MpAxQsY3NGruT623IbUhm MRhIgjli0ddy6tgcGu0Pe NaQIYkpuDktNktYOA1p9D eUo37U7PyiAow d6RvVwk1qv62vVCfz2Y1w VE4M2HvLRTyyivreNHkbQ fhOC1yMHHnjijgPJWbcS9 jOPJwF4u8UySy RoP4IUtzT3TolfH3BZLci CHcIZCqyDMJtB6jkdmqx5 mvezbaRiYjOPXrIFb8OGt 0LWFsaWduOiBs QLQ3MfS0HZO0kWVmcT0fg CipjgxqxM7oTdp+UGh5c2 yypVXuXK6xjVV7WT32SE7 1mNSje1U1xBL0 Q9VqLENhnlypmbbpkEK2V LQmZNBvzW57Lv4xkEjtTg 8fKMCmTAH7FRUsfRNqF6J mlV1kNrVdEAWd LIGaI9HgnGZiWAkeZ570Z KovCeM5NSYuieStK8JgYW TdqLleNqB1t1F1Lw4IQR3 2VZ84GO29cJXm l0G6rBZ7B0PhWQYkxbywh hrlrJF3GNMcNSIslN47Rn 4enUxtHu7cQETzVAG1WTT pnVZcW8PebK8v SxTxLYWdPNJwS9FwwEYkM GqpV958UIkzTpZ1JNLnuh HhP0JnUMSagQwrUyR3h5G 7Rd7ZRa07RW19 GJ13fFXrv1A3dRA9E5WeP BOhzyhiqtyhrFS5FPOpMV LouL32Ib6xzOlbBs8vVVY dZOM0TYKdwHBy I8IzaT5hUuGiLABlCRNnR 9DzfXMvYDmyM752MBicQb B4QWFgxaPuF7KlIBYmgAb dObF8r3S7Cd8E SPoghoo5W8OtPrpwnPV+P T42GNViNG75kVJpvASbn9 gnkMp5FyBnVGHhFAD8yQr vHStpn5FcMLMa Y29s (more content not included)... [facility] ED Note-Physicianon 07-28-19 ED Note-Physician Basic [...] My Ultrasound interpretation: [] Decision rules/scores evaluated: [place] ankle rule, cannot rule out based on [...] Mark Pitts In 3 days 07/30/[address] [place], [place] [id number] Business (1) Additional Instructions: Patient Education Elastic Bandage and RICE Therapy Ankle Sprain Attestation Patient seen and evaluated by the physician assistant chief nursing officer. Attending physician was present in the emergency department and supervised care. This visit was performed by both the physician and an APC. I performed all aspects of the MDM as documented. This report was transcribed using voice recognition software. Every effort was made to ensure accuracy, however, inadvertently computerized teaching artist mistakes may be present. Appropriate healthcare PPE [...] 1 tab(s (more content not included)... [facility] Comment on above: Result Comment: Elec tronically Signed By: Juan Ott PA-C\.br\Date and Time Signed: 07/27/22 12:06 EST\.br\Electronically Co-Signed By: Saúl Gaspar MD\.br\Date and Time Co-Signed: 07/28/22 07:23 EST Consent for Treatmenton 07-10 Consent for Treatment [id number] .[id number]:127 [facility] Discharge Instructionson Discharge Instructions [id number] .00CD:127 [facility] ED Clinical Summaryon 2022 ED Clinical Summary [place] [id number] ED Clinical Summary Person Information Name: RJ ELENA Calista/[facility] Age: 32 Years : 1990 Sex: Female Language: Peruvian PCP: Mark Pitts DO Marital Status: Single Phone: [phone] Visit Id: Visit Reason: Ankle pain-swelling; RIGHT [...] 07/27/2022 11:34:49 AD[address]ESS: [address] [facility] [id number] PHYS DOC NOTES: MEDICAL INFORMATION: Prescriptions Given: [...] Ankle Sprain Follow up: With: Address: When: [place] [id number] Business (9) In 3 days 07/30/2022 DIAGNOSIS: Ankle sprain Normal [facility] ED Patient Education Noteon 07-27-2022 ED [...] your activities and whether you should start wczmw-wv-gpiuxv exercises for your injury. Ice Ice your [...] 12/16/2002 Document Revised: 03/16/2018 Document Reviewed: 03/16/2018 Purch Patient Education ? 2020 [employer]. Ankle Sprain An ankle sprain is a [...] the cau (more content not included)... Normal [facility] ED Patient Summaryon 023 ED Patient Summary [place] [id number] Patient Discharge Instructions Person Information Name: RJ ELENA Age: 32 Years Arrival Date: 07/27/2022 10:09:44 Discharge Diagnosis: Ankle sprain Primary Care Physician: Mark Pitts DO Provider Information Primary Provider: [employer] Supervisor:Juan Ott PA-C The exam and treatment you received in the Emergency Department were for an urgent problem and are not intended as complete care. It is important that you follow up with a doctor, nurse practitioner, or physician?s assistant chief nursing officer for ongoing care. If your symptoms become worse or you do not improve as expected and you are unable to reach your usual health care provider, you should return to the Emergency Department. We are available 24 hours a day. RJ ELENA has been given the following list of patient education materials, prescriptions and follow-up instructions: Follow-up Instructions: With: Address: When: Mark Pitts [address] [place], [place] [id number] Business (1) In 3 days 07/30/2022 In the event that this physician does not participate in your insurance network, please consult with your insurance company to find a nearby participating provider. Patient Education Materials: Elastic Bandage and RICE Therapy; Ankle Sprain A MESSAGE TO ALL PATIENTS REGARDING OPIOIDS PRESCRIPTION OPIOIDS: WHAT YOU NEED TO KNOW Prescription opioids can be used to help relieve jrxsvepo-jh-nmelcs pain and are often prescribed following a [...] be struggling with addiction, tell your health wound care nurse and ask for guidance or call [employer]?S National Helpline at 1-810-516-HELP. v Source: (more content not included)... [facility] Prescriptions/Work Noteson 0 07-27-2022 Prescriptions/Work Notes [id number] .00CD:127 [facility] XR [...] V. Transcribed by: ESTEVAN Technologist: CHARLOTTE Márquez [facility] Coding Summary.on 04-18-2022 Coding Summary. CD:[id number] G h0bWw+PGhlYWQ+CJ5APFY tA06yoPQdrV8XE8rCQD8P TUTGIYSQQZ1ISX2tkFL6E WrsN0PptxQx MbytkVYdQL76UPw5NIM2g PeiLRmzcA8mnYDxJ5i5Vg WjVQ83rO53HPaqGTLzKoV 3LjZpbjsgbWFy J7wvWaGzuETxUdn+PHRhY mxlIHdpZHRoPScxMDAlJy VdeMapBW4gBd0jPJLhAJV vbGxhcHNlOiBj q4trMSHiBStsDX7ljGjlB 2AdoJF2NDZad9l8Lk44lC I+JNRsSOY3yImqBDgnl99 3YvJuq6etVYI7 yRCaCYsjJQH7V95id3S7P GEvGCKeCBW9nXC6lX0bfT uhvgpdW5CqgINrMdK5CQL 8vNPddL3pzBtf jzhbtQ0tHlb+E46QXF9NK QURDW5WMxt5Y5JsLqjaiU I+XQ53FEAlIL93xYQfqHN cb5lnyJd7EcRo AOVcLAY9oPpnMUtnv9PmD RDyP14obOFqm1M2FZNplC fatHUdDrZulAQ1hK3fIJq ajcbms3vocacd Lnwpo0tmfm78xP77S91sU TdiJTMiSDT1NUJrRVMyxY mphx5vsT9mOr6+DTzwl0g ik0mroTa3NvFl DZExgwJgsGimPFL1u9EyO p30T4DvlGbpj8PmCzo0cw 17bXKft7D6fKX1BXjeAHP afV0qDHcdKmS5 DBVjLkWofW45lGGwRAwnB l8bfBygpUrcUQ1eVDWxee ilPZGusV3aXISvhBJyhUl lJH9sDIRlikdf n500DfPcIJF7HYXcnPAdQ 9WqvF2lJkZuBXFeYRFtA0 XwiPPaUNlaB822ANbfMcS 4HYWbfcMbP5Yz UBGpiYksVhW4k8Y0Uz9Uf 2XjwwljHUD7VVwrTSHbDs YjLuLnUeJ8A7UdXyz8TFC ksGxaAG5gQ3Kl ZAVzsxzmqmpkuID1BMAvV XVpyO31yYOeBBtcKx3rw9 D6s609WJWzTXSmgW84Ba5 udDogMTBwdCBU sQ4wicpuj1dwjqufNeBuH CBiDRa6SNo9RVOdaQmbVa KmYXK0AyI9HQX9kTTwpA6 uoSxzbdnueT3t Oyc+R56plL6iRAW4EEC9l almRGObhxAhWS43IM76G1 RyPjwvdGFibGU+PGRpdiB rwDtlKY2sXqUt q1ltw3PgFXwkZ7YnLCAdZ RghDxn9RMFbSUH3dVG7oR 5bUWDuIKzxu4U2qQP9K3K foxLzsa1gx8xf AGZcLAmaG83muFQpr0K1X JIlsRT6YNPszAbeIfRuyT 93Oyc+QSPtuDvie7RmHcm da6czl3gthTz9 BkXgQNOwtnRchDdnCMX7g 3HbWl74A98tHEigILOjQM VhYJBpJOCabPmrwx9kjY5 wIi8+PGNvbCB3 hXW7kB3vECRnUuZ7DGciJ 092UsPgbYPrZqjve0rqn8 vmfPo3HgSyEFHjidXgbDe iJIP2i3WwCo32 F06jOAiaUGMgYOMlHVGiU VIblMusxf8evU0kSm4+PC 3mc6rpbr79jB83zPG+PHR lQQA3tJsiLNaj GYQroA9mDNafZaH7PZYdS nJcnH63bPXkBYtyVc8svU ukaTbuZH9yEAXpczzdg00 4KwYvy1zrHFBx oMQrFVhoUQZ3Y36mh5Z3K PFkWJIxNYO5jDJ7gG5esM lnbjogbGVmdDsgdmVydGl cVTsdDYugW519 IHRvcDsnPlBhdGllbnQgT nUaHRx4H1KuSed7LALjhZ sgHX6sbQXyTPelVx4kuUw fhZwoXD9dTWXw pxejf608AyPbs1zbEGXmz CIbFCkuOIL3Y81al6A5MI AsQWUxRVM2kWR5aK6qdVe nbjogbGVmdDsg cxXirAcmRTujBNqlV396I HRvcDsnPkJpcnRoIERhdG S5XG32VO71fVZct9D9iHV 1A0GbWXProieq ovbchGL2IKFzJXQmuO81N m6skYfeIx7oUAPgTQO0HF QgpPCjO7HvaJ3aRcGgBGB rFTOtL1VevHEv NHkpJ522UOtkFxP6YXNgw bYpG7YeNIBdrNcuMiC0t3 S1Ud6VS3I7KB28GT03hCD mz7C4sEU0S4Si WZVhozisvawqvTA4PEXkO MUacR51No9shUalFw6cID GiPMJ0DNUkoACqD0EucA6 yOiAjMDAwMDAw L7ZxzOTxEBloK999KUsbO hC2RUZpnlWuK6WgQCEfoG fvExU3q1B5Qy8MGQv4VR9 8YF33vMUpf9U8 uXT1P5ImBQCpszdjdstjn YT3VRXdLKVjtT88Nn8phC ctZt2kHBQkSKA7XBOqhPM uG1ExpY9qJbSj EUOjZUFbE8HruJMgXRxlZ 116VCnjMvY4TYZponEdF7 SrDSYruBckCwZ9d4K4Uf2 FZPRwYX85TVM3 nFS3IN10LJ37J8BxXutqt GFibGU+PHRhYmxlIHdpZH RoPScxMDAlJyBzdHlsZT0 yEq6vMRLkFBUn tUxrqUXrGoMro2fsQHOyJ GalVV0evXwwV3LzuQP4HL Vdu7a4Re78I74nF4OteSC +LGFovTF6tCI3 vI5jDgXpXvE7JChzK253I jBaqZLxIvsct8rlm6bmkM m6MpU5ZVPtopPbeNjxZLP 8c3AdWm56D03u IHdpZHRoPSIxNSUiIHZhb Nhuzt4yuR1tSa3+PGNvbC P4wNK2dR8bFiUhTrG0DTg vC598ZnIdgCIn Xxlcv9zkc8tvsEd8OkJmH QQybrGicLjtWVY8z8TbPy 96T4AmwNnsj0WbVfn3pi3 0iJVqb4S7rXJ3 Z1EuTJFpsesozOZpySvjG P6iDRTehhmmLAZuhG8bAK RnA3c5WbYzWiF9TJrmI4K zagX8AHHvsVWs GSccURO8G89nv1G7ZFGyA ACsAJH1qMX3rS4drXmwfa ogbGVmdDsgdmVydGljYWw eXKudK326ELWd gXlmSEEfsK0ePZUvnQMca SjzKP5gUULmrgmiDpBIFC GBPMpiNDVSZ4DJYOgSLZQ gRzwvdGQ+PHRk BTR2lMmnAAfwKRPxbQ5nG EUgU8o3VwZcDvM2BIutM4 UmLJAcrbwrJu79xM4gPuG wMgQ7URtsF8Ua lqM2KTIegCWvYZqzKTO4T 64by9L0BKBsPWVjXVZ4cA V7wA9kfMqlcffkmTVtlFv gdmVydGljYWwt JWanL821GNSliQoiEsYiS zG3NoH5PRN2S2LjIhi9SR NzpKayEL5ihTTfWNhfYm7 kcUbsgCwdYT3r ZQKtnoheZGXheE9nVYGhq UAdyUudDP5jCCOyuguif4 40HpJxAMN2PBNdcKIaH2Y dbZ0kJmMsJLDi DTGkD9LkdBFbVRvwA555U OhqBvL2XIFqydKwH4LbJS ErmCiiLuD8a6B8Yn4jNpN ZZWFyczwvdGQ+ PYExUUO3sZkzIXjgMHAgf U2vSHBjK2w7MjMoCwM2SA tkD3MxFQDzraaiJl11hB8 eKfTqRpO6FWhw A6KyauZ8RCFewHPcBRteC QX3I60zy3K2QAHoUDStYC C5gEE2eK7lqCwodjuiuSS mdDsgdmVydGlj CSnbUTkjG617IBIfiSdjJ kZlbWFsZTwvdGQ+PHRkIH I1yNnmCPnpBDWabQ7lOLL iV1c2DyOdSiC1 YStsV1WzJSEyagqrZv72d Z4xOgLwQcA5NZcnI6Vceg T0TXVeoRAsLChdXGJ4V47 lj5G0JODyXQFm ANP1bRV1mC5qdSjpkguku GVmdDsgdmVydGljYWwtYW dhV083NSZdwXucOxYbIUP pPM3mjMgzlJW+ NT76cd13F6McEvosNwi8P GEbOTN3yCG9sD3nDMSqJX xau7H1nSC9P5MtgcIflt1 eq8lhWHIrCXnh Y67zyUHqb3R9DMEasJS0W QFcfEduBgLgxG24Pnf+PG XcbIgqx8McBujvi1vbl7s whFf4UsZgJUSb nuXbvQenKZB0l1PmMf16D 29sIHdpZHRoPSIzMCUiIH QzyDnshc9bwS0tNz1+PGN kaVX2hIW4hL5p TpOzIaN9GUfeG915NkYyu LKmYfhfk8kxk4jclIo9Rj FgEBTfhgVdbCnrOBJ7j9F qKl57C7TozLrc s9NeKdn9ve10kBSwt1M0x SH5I8KtEZKweblrtCBfiG daWH9vKJTpidcvNGTazW1 cOQPbM5a9MpGc UtC9TBjzQ4PxfrJ7MBRgo VPcXRAgjQUSgT3cahonw6 uvitilQlYhAGFkPXp6YXm 0LWFsaWduOiBs CTQ6HuR0ZTT9eQKauX8wd VqsgiprkL0lPbv+UGh5c2 jctCAiJP2ecTM9ST85MO9 8tXGqk5Z4xSP9 Y9FnAQIbylbomqsfqGD0B MVyQGEgxS33Qm6igOadCo 4kEVKsGEK3UBSymYOzI2S ewB4qRoUyJEJx BEWeU3XnlGMeURgbT055H UhgReY9IBHamzZuT1WqKZ ZmkBduXrT6z5Q2Et7PGE9 3AT48KO62aZQz y0P0bRD8M6JpIGGsasavo iemjNE7NFUkYIUeeX92Ow 4zoXibFu9rIZNkBOI2MIK hjBKvQ5HpwL5e UiHwGKDuNJQhQ1LuvKWqY GoaY279QCaaSpT6WQDyqh XbE4ZqVFDvwJaxPoL2m8E 1Xx3HEq07QL27 LN63jOMzn3O3fWK7Z8OzA ICfizpgauimxDU8CEBsHJ KamR18Vr1yeHoxUb8vQQC pSHR7DVXmzYUe Q0EsfH5gQyXuJLHwWMLeJ 8NijKQpAVupY272UFgrOi Q2ZMGpayIlA1MoMTUzuMs bYiN4y6K3Ns8X TZvgqqs8C9YwKpdgzGL+P K13PDUdGL68kXLntYLmg1 uqpPa7WyAtTECmOMN5jCp cXSowx9WdUTXm Y29s (more content not included)... [facility] Coding Summary. CD:[id number]:[id number] G h0bWw+PGhlYWQ+UQ3VTUB dC10iwJNyhM7WU9xAVR2O VNTQCGVCFX6LGC9teSO0U PyjR7DvmwMv ZbmjeWRcSU45LGv5AXT0b RhtQMgssO3ajKNnT4g2Zf UzWM94tJ50BKfeEOKxAdT 3LjZpbjsgbWFy B9igGvHceQAaWwq+PHRhY mxlIHdpZHRoPScxMDAlJy QllOgeAQ5yJh9nNVDrMNG vbGxhcHNlOiBj j6oxQOXjJEkxNI8dbCtdZ 6HxeNS3SNPpt7o5Jb14qA I+HVPvCCW0bNcnQAunt13 5MdFvx2jcJBP0 hUHuBPnzMNF7N45cu6Q9B IYhAIUjULN9zHE7gP9ftE qgajroB7VppVCwFmV2GMV 9mTLrzR8wrNfr pgflwS0jInr+S44HER1HG QTOOO8YLzn9Q6IwElbogM I+QP27NVNoAD92dBQmgCU bn7dmcWr0OsWw JGYiGAJ4kIwyUEfhd7LrB TMoT44ikHGio8D7OTDfdI gxiWIzSpOalMK8pL5tXAr sdeatk4xehmvz Pqmfx0vzrq88dV17Y13uX CgiGYGuOTU5EVXgEFXmcP mtpw6gxG4oOs5+JTenr0q am9lcbYs7OyRk YZZkfbXmsCvmDEQ8s1ElN l71B6IiyVukt7YyYjd2kg 37zEHvw0K0lKH8GZmqRWE piC0rZCbuHzF2 UQLpIoRwaJ01iSGxXDakM z4rfMpseTotJT4gVGNste faYWUznW6yHADkfIFqiJo vSI0rJJActcbc w935BgDeRAD1OYBsjVLfP 4ZngB6hFcGkZMOyWPWeH3 UicWPqJEgsI172VTvvJgK 0HCMugmNhG4Qw FGSbwKfwTjW8g0Q9Eg1Lb 9JqtkcqIIM6GQlxOYIxTp SbCnQbElF7D0AoYjk8XGB ywLmgIM1gG6Sz HKKrnxliuokbiPJ5DYCkC ODheK23aQDuEUtlJm0mb7 T1t537KFCfBYTrgS12Eg2 udDogMTBwdCBU oB2pcnejv8hcbukpNvSxC GQyMFh3PWu2GFWkjNzzKw ErFZU0VuI2QOB0aJVpiP8 rkIrfeehavD3v Oyc+W15huN2rVSG5ZSX2x xefZXTclpWyOU10AT90M5 RyPjwvdGFibGU+PGRpdiB cbCrbFB3aEyOt f8mjc2ObZXgwH4NgZJFcA WeqRfb9QRHpLYW7uCH1fJ 1oLWMuJGawe7J2mLI8R8H eosCzom0jw7ss PJXaUIjiM73leJWom0A8F BRmzIS3HURfjSmyWgYuuG 93Oyc+ZHNldQdcq8PtHcu nn1rnj6stsCq1 BgAsDXFinaVjoFmmZTT9b 2KoTz96I19pMPbaCVOjTJ JhPQUbBCTvpFipfh7gyJ7 wIi8+PGNvbCB3 oYX6hA5cHOZeOtG7ABbgS 657UlFcjBNsNhxxh2muu1 izaEo4JmGyNKQqevQtzSp jNQL0g7ZeKs40 W71aVLrlCFHzRYBdSUQbF EGvhShkaz9bsA5dUe8+PC 0ms6ptxz99zB00gVX+PHR sOKC6lTlfRZwj SWNtwY6tJItvJnH7OCVkK hEuxQ27vTLpLRhkZi3vyP usvNfvGF9vJQAsvafgw40 0HhAjz0uwRXUe mKVdNFsfRVC7F80mb8F8V KUqAXWvEAZ1gUP9wN1psZ lnbjogbGVmdDsgdmVydGl vHIjfBKiwX364 IHRvcDsnPlBhdGllbnQgT hFaZRy1C5GjBsn0OGAriS whDC2guJThWCcwGf7vlNy ovOfqPK5oHHMk mcqkb510SxBhd3gaXGSzk NLpRCjrGBU2W57kb2D9WE GxAUEqHIB7jRK7zT0sxTe nbjogbGVmdDsg tmGqdGiiXTcrMKlkD943R HRvcDsnPkJpcnRoIERhdG K8FQ72WE32tCQtu5P7lTR 5Y5EaWAAkfxpq zlkmsIL1BCSbZOGuqT32K r3ihAxkCc0tCYNsBKU1RR KpuMVbQ5BzaG2gAeNyMFO sPOHlZ0DcgUOs IDghP104YFwnFkQ1ESGoz pHsJ2HxNEQqvOynSqK2w0 R9Xu2HP3X0YE62AC37cOS tl4X9sMD0F9Ke XDEfnyjnupnnsLS2ZGUrC YUauH45Rc5yaXbjUc8aZT UoBMB5VDIirSVeO3EvrZ2 yOiAjMDAwMDAw B4PjgBLdPLfzU326ZQrqY pG5CFQdcgPqR1MvKYAghC jgMjK5n9P7Rn3JEFw9TD7 5RU12dYWgx4N3 qGC6K2FvJHRujnqzixdnz UP8QEChCJQwdS21Ax0xmB nrWp4zUYYyZIJ6FALhlNX yJ3YgrH2pVkOv EHNbCJDcD4YxwMRxQTojH 393MJpuMuL4ENWeiwVgI9 UdWIXrnEdlBcV6l9R4So0 VCCRlOX62VXW8 wZK7QU85DH36E3UfHtwcq GFibGU+PHRhYmxlIHdpZH RoPScxMDAlJyBzdHlsZT0 mOo7qVKEdSSKo eIysxIMwJfBfb2agZMIgK WpvTU3rzYsrD1PrbTB4JL Adv1n5Zi79W39lV6VweMM +VQWebMN4nTJ6 wW2zFbLyReP3DHdnG732U vYqwEKfQjfeu3kwd2sgwF i1BfJ9XVLuekOleXcbEUB 1g0HqDz96B35z IHdpZHRoPSIxNSUiIHZhb Xytnk2puU5lNk7+PGNvbC Q1kGE6fT8cQeFoRwC7BPe lV020XiTruHCz Xpefc5qyb0katVf2EvEqQ TSqdkQvmUpfAUF9c0LoNz 61X1WwqUwzo8ZqVik7jc2 0jIApz4L1iCE1 S8JyFGPmzbyyzXZtuFluL X6fSAYdabqlNBEvsK3ePB FxJ5m6YeDsOnE0YCabQ6U mqcT7EZSmnSXs UWijLZJ2Q97us8N0QLMxG CLwWOI9nWA0jI1icRhtnt ogbGVmdDsgdmVydGljYWw kPLkuF930BSIn nGitIGBscS0rCSCtwCObd YpcLH9uUMVozoweNjQBJS PKNEhlLELVI2EWQYoGQXR gRzwvdGQ+PHRk WAO0aWpqJYywTXMxcC8aS AYvU0d7MfPbGaA2LNauE8 FoVWVephifCn27wI1wZfV yXhB2LGmfW7Hg yoV9GKNqrHFtRVrnZBP1H 57vi2Q1VANcJADpELJ2kI P7mV8asXrcpzydaURvcIy gdmVydGljYWwt PVnlA268MRUbxYenHpZzS cK4CpV9SVU8I0LwBrq1XX KchEtnWK0yqMEvGOdfRg0 sxUupdPrkUB3h IPYrotycQGXgpE1aIEIem OMgxEblFS3xJDEqlaraj9 88XmVhEBV8TBHerVLqP7L wgA6kRzGhUEYg GVHpI6PsfRIhLMnhN704D LugLmO6NUVnesMpQ9EsEY ElaPboZgQ5d8A2Mt6xFjB ZZWFyczwvdGQ+ AWWzIVB6gUczGVchZWIgf X3nKLKzJ8e1PjZbIuB9YJ sjO1PoJZCdnrhyOg95aC7 jUdGaOxV4SHuy B3UhncN8GZWjlGUcWPeqO JP5F68up4Y2MGLvQLVnMY R9rKN9zQ9jjUnitbqbxZM mdDsgdmVydGlj AVslBEbjR981DEXgeEjaR kZlbWFsZTwvdGQ+PHRkIH W4nInhVUsuDIDpkK3sJDV fZ1v1NnDuKeJ4 YTktI7DjOBPxqtziOj25j X1nGfSmQgL9IMsdI4Lmpy Y6SFBxdMWlZGqnNUR5Q86 lt9O0LBVwJUIh UZZ6uPQ4uO0jqWxjgfgvu GVmdDsgdmVydGljYWwtYW jrN746LMKvhLcrKrBlILS sSE7klYqujFS+ BQ56ha20Y9LdPuxfApm3B IXxJNO8xWE7tI1iAUPmUE gig7W0dQY4N5HpwjOfrl5 wv8enZWKyMRcn M75byWEyw2B6FLMmsSF9A ZWleYuyKoJwjC28Xqa+PG IueSmpd1KhPpsut0uuq5p igDz6LfCqOLCb lnChiIkuGAO7r4QfCf50A 29sIHdpZHRoPSIzMCUiIH NmyNhtom9ikW9yKy1+PGN ujED5jTF0bR3q YhUxZrM1FYhjN902GaKjh UJyUszqp6itv8btlIb3Ts LjWJNrruYvjKtnPSR2i8E tVe27D4LzzJsp h2DgTdq4ib58mPMnr6S2s BX7R4GoIUIrvrkejSAdtL dyQA4zBTOidfckYLGauX9 xSSKdP6z0AySh UmC9NIhhF1SwhcH8QMAqc LQaMKIikLWGlX6nrtnzx2 pcbatgKgHaGRZxSDj3ETb 0LWFsaWduOiBs XAE9OjY5JEN2dEQvgT1av EwezmjwfL4lJkj+UGh5c2 vlvUPgMT7ecHY0YE46DN2 3oSYyl0G7wVA7 T8CeTLIgiedqwophuGR5U TOlTPFrnX50Cg1trIvyOx 9qURPuLDF7RHSygCBxS5S hxI6bEtUzZAMi EGPoC5LnhRLyEOzbP243R QljUmF4QNHlblNcF7UqJH LomHznYzI4j2K1Wh1THS9 8PJ61WS46bKPc m9B0nDU8X9FaYJZdgvewx jspxQC3AKNeXQXifY49Gr 5myMnhAp7cQABdWIA4IWR ytZElO5YryW9c TsRrMKZnYYKfS2QuzITcN AeuA817WFprPkS0EUNvzl CvT1EjHJQzeMlrYpL1d0Q 6Zq6FSx88IO50 RD31oMWnx3D9cZH3U0UyB GZpasisojxquGZ2BXMrLW RjsU57Ym2neOdoRx0hCIK sYQI1FFFagVBy R2XzcA3jJcSdNWCzAXUvC 3EsaEKtAWskV116LDiwKj E7LSRxdhTwA2GgTIEtcBn sBiV5u0W7Ea8D DFlnpke3E9MvJmrilDJ+P K03RWIcRX18nYKedMSlu4 elmSy3ShYaFHGyTTH9gKy kLXulr4CnCCRl Y29s (more content not included)... [facility] ED Note-Physicianon 04-16-20 ED Note-Physician Basic Information Time Seen: Robinson Galvan PA-C 04/14/2022 14:53 Chief Complaint pt c/o allergic reaction to possibly motrin. pt was having swelling and redness in the face and tongue. ppt c/o sob. 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 History of Present Illness 31-year-old female [...] Pitts In 3 days 04/17/2022 EDT [address] Business (1) Additional Instructions: Patient Education Anaphylactic Reaction, Adult Attestation Patient seen (more content not included)... [facility] Comment on above: Result Comment: Elec tronically Signed By: Robinson Galvan PA-C\.br\Date and Time Signed: 04/14/22 18:33 EDT\.br\Electronically Co-Signed By: Saúl Gaspar MD\.br\Date and Time Co-Signed: 04/15/22 23:22 EDT Consent for Treatmenton Consent for Treatment [id number] .00CD:127 [facility] Discharge Instructionson Discharge Instructions [id number]# 1.00CD:127 [facility] ED Clinical Summaryon 2021 ED Clinical Summary [place] [id number] ED Clinical Summary Person Information Name: RJ ELENA Calista/[facility] Age: 31 Years : 1990 Sex: Female Language: Peruvian PCP: Mark Pitts DO Marital Status: Single Phone: [phone] Visit Id: Visit Reason: Allergic reaction - [...] 04/14/2022 19:42:49 04/14/2022 19:42:49 04/14/2022 19:42:49 ADDRESS: [address] [place] [id number] PHYS DOC NOTES: MEDICAL INFORMATION: Prescriptions Given: New Medications [facility], [address] [place], [place] [id number], [phone] epinephrine (EpiPen 2-Ze 0.3 mg injectable kit) 1 Each Intramuscular As Directed. May substitute for another brand if required by insurance or inventory. Refills: 0. famotidine (Pepcid 40 mg Tab) 1 Tablets By Mouth once a day (at bedtime) for 7 Days. Refills: 0. Medications to Continue Taking That Have Changed [facility], [address] [place], [place] [address], [phone] START: predniSONE (predniSONE 20 mg Tab) 3 [...] Reaction, Adult Follow up: With: Address: When: [address] [address] Business (1) In 3 days 04/17/2022 DIAGNOSIS: 1:Anaphylaxis [facility] ED Patient Education Noteon 04-14-2022 ED [...] Symptoms of anaphylaxis may include: ? Feeling insurance commissioner the face (flushed). This may include redness. [...] have hives or rash: ? Use an nsof-kou-qwewgtn antihistamine as told by your health care provider. ? Apply cold, wet cloths (cold compresses) to your skin or take baths or showers in cool water. Avoid hot water. ? Take ftgd-skb-nvucpki and prescription medicines only as told by your health care provider. ? Tell all your health care providers that you have an allergy. ? Keep all follow-up visits as told by your health care provider. This is important. How is this prevented? ? Avoid allergens that have caused an anaphylactic reaction in the past. ? When you are at a restaurant, tell your service observer chief that you have an allergy. If you are not sure whether a menu item contains an ingredient that you are allergic to, ask your service observer chief. Where to find more information ? [employer] [employer]: aaaai.org ? [place] [employer]: healthychildren.org Get help right [...] medicine s (more content not included)... Normal [facility] ED Patient Summaryon 022 ED Patient Summary [place] [id number] Patient Discharge Instructions Person Information Name: JR ELENA Age: 31 Years Arrival Date: 04/14/2022 14:45:02 Discharge Diagnosis: 1:Anaphylaxis Primary Care Physician: Mark Pitts DO Provider Information Primary Provider: Saúl Gaspar MD [employer] Supervisor:Robinson Galvan PA-C The exam and treatment you received in the Emergency Department were for an urgent problem and are not intended as complete care. It is important that you follow up with a doctor, nurse practitioner, or physician?s assistant chief nursing officer for ongoing care. If your symptoms become [...] Instructions: With: Address: When: Mark Pitts [address] [place] [address] [facility] () In 3 days 04/17/2022 In the event that this physician does not participate in your insurance network, please consult with your insurance company to find a nearby participating provider. Patient Education Materials: Anaphylactic Reaction, Adult A MESSAGE TO ALL PATIENTS REGARDING OPIOIDS PRESCRIPTION OPIOIDS: WHAT YOU NEED TO KNOW Prescription opioids can be used to help relieve ytwcinog-ju-wnyrlc pain and are often prescribed following a [...] be struggling with addiction, tell your health wound care nurse and ask for guidance or call [employer]?S National Helpline at 2-635-408-HELP. v Source (more content not included)... Normal [facility] Covid-19 PCR (CVDTBH)on 07-0 7-2022 SARS-CoV-2 (COVID-19) RNA YARELY+probe Ql (Unsp spec) [...] for this test is supported by the [employer] Cook Operator of Health and Human Service's (HHS's) [...] C VDTB #### [facility] [address] [place] [address] Dr. Tj Wild CBC AUTO DIFFon 07-05-2021 BASO # 0.0 103/ul Normal 0.0-0.1 [facility] Comment on above: Performed By: #### C BC #### [facility] [address] [place] [address] Dr. Tj Wild Basophils/100 WBC (Bld) 0.1 % Critically low 0.2-2.0 [facility] Comment on above: Performed By: #### C BC #### [facility] [address] [place] [address] Dr. Tj Wild EO # 0.0 103/ul Normal 0.0-0.7 [facility] Comment on above: Performed By: #### C BC #### [facility] [address] [place] [address] Dr. Tj Wild Eosinophils/100 WBC (Bld) 0.0 % Critically low 0.9-7.0 [facility] Comment on above: Performed By: #### C BC #### [facility] [address] [place] [address] Dr. Tj Wild Erythrocyte distribution width (RBC) [Ratio] 17.2 % Critically high 11.0-15.0 [facility] Comment on above: Performed By: #### C BC #### [facility] [address] [place] [address] Dr. Tj Wild Hematocrit (Bld) [Volume fraction] 36.3 % Normal 36.0-48.0 [facility] Comment on above: Performed By: #### C BC #### [facility] [address] [place] [address] Dr. Tj Wild Hemoglobin (Bld) [Mass/Vol] 12.3 g/dL Normal 12.0-16.0 [facility] Comment on above: Performed By: #### C BC #### [facility] [address] [place] [address] Dr. Tj Wild IG # 0.08 10e3/ul Critically high 0.00-0.03 [facility] Comment on above: Performed By: #### C BC #### [facility] [address] [place] [address] Dr. Tj Wild IG % 0.5 % Normal 0.0-0.5 [facility] Comment on above: Performed By: #### C BC #### [facility] [address] [place] [address] Dr. Tj Wild LYMPH # 2.2 103/ul Normal 1.2-3.8 [facility] Comment on above: Performed By: #### C BC #### [facility] [address] [place] [address] Dr. Tj Wild Lymphocytes/100 WBC (Bld) 13.8 % Critically low 20.5-60.0 [facility] Comment on above: Performed By: #### C BC #### [facility] [address] [place] [address] Dr. Tj Wild MANUAL DIFF REQ NO Normal [facility] Comment on above: Performed By: #### C BC #### [facility] [address] [place] [address] Dr. Tj Wild MCH (RBC) [Entitic mass] 26.6 pg Critically low 26.7-34.0 [facility] Comment on above: Performed By: #### C BC #### [facility] [address] [address] [address] Tj Wild MCHC (RBC) [Mass/Vol] 33.9 g/dL Normal 29.9-35.2 [facility] Comment on above: Performed By: #### C BC #### [facility] [address] [address] [address] Tj Wild MCV (RBC) [Entitic vol] 78.4 fL Critically low 81.0-99.0 [facility] Comment on above: Performed By: #### C BC #### [facility] [address] [address] [address] Tj Wild MONO # 0.7 103/ul Normal 0.3-0.8 [facility] Comment on above: Performed By: #### C BC #### [facility] [address] [address] [address] Tj Wild Monocytes/100 WBC (Bld) 4.6 % Normal 1.7-12.0 [facility] Comment on above: Performed By: #### C BC #### [facility] [address] [address] [address] Tj Wild NEUT # 12.9 103/ul Critically high 1.4-6.5 [facility] Comment on above: Performed By: #### C BC #### [facility] [address] [address] [address] Tj Wild Neutrophils/100 WBC (Bld) 81.0 % Critically high 43.0-75.0 [facility] Comment on above: Performed By: #### C BC #### [facility] [address] [address] [address] Tj Wild Platelet mean volume (Bld) [Entitic vol] 10.3 fL Normal 9.5-13.5 [facility] Comment on above: Performed By: #### C BC #### [facility] [address] [address] [address] Tj Wild PLT 254 103/ul Normal 150-450 [facility] Comment on above: Performed By: #### C BC #### [facility] [address] [place] [address] Dr. Tj Wild RBC 4.63 106/ul Normal 4.20-5.40 [facility] Comment on above: Performed By: #### C BC #### [facility] [address] [place] [address] Dr. Tj Wild WBC 16.0 103/ul Critically high 4.0-11.0 [facility] Comment on above: Performed By: #### C BC #### [facility] [address] [place] [address] Dr. Tj Wild Covid-19 PCR (CVDTBH)on 06-10 [...] for this test is supported by the [place] of Health and Human Service's declaration that [...] C VDTBH #### [facility] [address] [place] [address] Dr. Tj Wild D-DIMERon 07-05-2021 D-DIMER 6.07 mg/L FEU Critically high 0.19-0.50 [facility] Comment on above: Performed By: #### D DIM #### [facility] [address] [place] [address] Dr. Tj Wild D-DIMER COMMENTS SEE BELOW Normal [facility] Comment on above: Result Comment: Incr [...] D DIM #### [facility] [address] [place] [address] Dr. Tj Wild PREG HCG QUALon 07-05-2021 , QUAL Negative Normal NEGATIVE [facility] Comment on above: Performed By: #### P REG #### [facility] [address] [place] [address] Dr. Tj Wild PROF 14(COMP METB)on 021 Albumin [Mass/Vol] 3.5 g/dL Normal 3.5-5.0 [facility] Comment on above: Performed By: #### H STROPN, CMP #### [facility] [address] [place] [address] Dr. Tj Wild Albumin/Globulin [Mass ratio] 1.1 {ratio} Normal [facility] Comment on above: Performed By: #### H STROPN, CMP #### [facility] [address] [address] [address] Tj Wild ALP [Catalytic activity/Vol] 56 U/L Normal 38-126 [facility] Comment on above: Performed By: #### H STROPN, CMP #### [facility] [address] [address] [address] Tj Wild ALT [Catalytic activity/Vol] 21 U/L Normal 9-52 [facility] Comment on above: Performed By: #### H STROPN, CMP #### [facility] [address] [place] [address] Dr. Tj Wild Anion gap [Moles/Vol] 14.4 mmol/L Normal [facility] Comment on above: Performed By: #### H STROPN, CMP #### [facility] [address] [address] [address] Tj Wild AST [Catalytic activity/Vol] 27 U/L Normal 14-36 [facility] Comment on above: Performed By: #### H STROPN, CMP #### [facility] [address] [address] [address] Tj Wild Bilirubin [Mass/Vol] 0.5 mg/dL Normal 0.2-1.3 [facility] Comment on above: Performed By: #### H STROPN, CMP #### [facility] [address] [place] [address] Dr. Tj Wild Calcium [Mass/Vol] 8.7 mg/dL Normal 8.4-10.2 [facility] Comment on above: Performed By: #### H STROPN, CMP #### [facility] [address] [place] [address] Dr. Tj Wild Chloride [Moles/Vol] 101 mmol/L Normal 98-107 [facility] Comment on above: Performed By: #### H STROPN, CMP #### [facility] [address] [place] [address] Dr. Tj Wild CO2 [Moles/Vol] 26.3 mmol/L Normal 22.0-30.0 [facility] Comment on above: Performed By: #### H STROPN, CMP #### [facility] [address] [place] [address] Dr. Tj Wild Creatinine [Mass/Vol] 0.89 mg/dL Normal 0.52-1.04 [facility] Comment on above: Performed By: #### H STROPN, CMP #### [facility] [address] [place] [address] Dr. Tj Wild EGFR-AF SAMMARINESE >60 Normal >=60 [facility] Comment on above: Performed By: #### H STROPN, CMP #### [facility] [address] [place] [address] Dr. Tj Wild EGFR-NON AF SAMMARINESE >60 Normal >=60 [facility] Comment on above: Performed By: #### H STROPN, CMP #### [facility] [address] [address] [address] Tj Wild Globulin (S) [Mass/Vol] 3.3 g/dL Normal [facility] Comment on above: Performed By: #### H STROPN, CMP #### [facility] [address] [address] [address] Tj Wild Glucose [Mass/Vol] 116 mg/dL Critically high 74-106 [facility] Comment on above: Performed By: #### H STROPN, CMP #### [facility] [address] [place] [address] Dr. Tj Wild Potassium [Moles/Vol] 3.7 mmol/L Normal 3.4-5.0 [facility] Comment on above: Performed By: #### H STROPN, CMP #### [facility] [address] [place] [address] Dr. Tj Wild Protein [Mass/Vol] 6.8 g/dL Normal 6.1-8.2 [facility] Comment on above: Performed By: #### H STROPN, CMP #### [facility] [address] [place] [address] Dr. Tj Wild Sodium [Moles/Vol] 138 mmol/L Normal 137-145 [facility] Comment on above: Performed By: #### H STROPN, CMP #### [facility] [address] [place] [address] Dr. Tj Wild Urea nitrogen [Mass/Vol] 20.0 mg/dL Critically high 7.0-17.0 [facility] Comment on above: Performed By: #### H STROPN, CMP #### [facility] [address] [place] [address] Dr. Tj Wild Urea nitrogen/Creatinine [Mass ratio] 22.5 mg/mg Normal [facility] Comment on above: Performed By: #### H STROPN, CMP #### [facility] [address] [place] [address] Dr. Tj Wild TROPONIN, HIGH SENSITIVITYon 07-05-2021 HSTROP 10.4 pg/mL Normal 4.0-35.5 [facility] Comment on above: Result Comment: CUT- OFF POINTS HAVE BEEN ESTABLISHED BASED ON THE FOURTH UNIVERSAL DEFINITIONS OF MYOCARDIAL INFARCTION. THE UPPER REFERENCE LIMIT (URL) OF TROPONIN, DEFINED THE 99TH PERCENTILE OF cTnI DISTRIBUTION IN A REFERENCE POPULATION, HAS BEEN CONFIRMED THE DECISION THRESHOLD FOR [place] DIAGNOSIS. Performed By: #### H STROPN, CMP #### [facility] [address] [address] [address] Tj Wild XR CHEST 1 Von [...] by: Cassius MCKEON Date: 2021-07-05 20:35 Normal [facility] Vital Signs Date Time Vital Sign Value Performing Clinician Facility 08-21-2023 11:12-0500 Body mass index (BMI) [Ratio] 32.95 kg/m2 Bhumika COKER Work Phone: [facility] 08-21-2023 11:12-0500 Body weight 84.37 kg Bhumika COKER Work Phone: [facility] 08-21-2023 11:12-0500 Diastolic blood pressure 60 mm[Hg] Bhumika COKER Work Phone: [facility] 08-21-2023 11:12-0500 Systolic blood pressure 110 mm[Hg] Bhumika COKER Work Phone: [facility] 02-26-2023 15:56-0400 Body temperature 98.78 [degF] Charlie Rubalcava [facility] 02-26-2023 15:56-0400 Diastolic blood pressure 76 mm[Hg] Charlie Rubalcava [facility] 02-26-2023 15:56-0400 Heart rate 107 /min Charlie Rubalcava [facility] 02-26-2023 15:56-0400 Respiratory rate 16 /min Charlie Rubalcava [facility] 02-26-2023 15:56-0400 SaO2% (BldA) [Mass fraction] 98 % Charlie Rubalcava [facility] 02-26-2023 15:56-0400 Systolic blood pressure 115 mm[Hg] Charlie Rubalcava [facility] 12-31-2022 10:16-0400 Body temperature 98.24 [degF] Javier Woods [facility] 12-31-2022 10:16-0400 Diastolic blood pressure 82 mm[Hg] Javier Reynae [facility] 12-31-2022 10:16-0400 Heart rate 90 /min Javier Reynae [facility] 12-31-2022 10:16-0400 Respiratory rate 18 /min Javier Woods [facility] 12-31-2022 10:16-0400 SaO2% (BldA) [Mass fraction] 99 % Javier Reynae [facility] 12-31-2022 10:16-0400 Systolic blood pressure 129 mm[Hg] Javier Peggy [facility] 12-30-2022 13:13-0400 Body temperature 98.06 [degF] Javier Pegyg [facility] 12-30-2022 13:13-0400 Diastolic blood pressure 75 mm[Hg] Javier Peggy [facility] 12-30-2022 13:13-0400 Heart rate 88 /min Javier Peggy [facility] 12-30-2022 13:13-0400 Respiratory rate 16 /min Javier Woods [facility] 12-30-2022 13:13-0400 SaO2% (BldA) [Mass fraction] 96 % Javier Woods [facility] 12-30-2022 13:13-0400 Systolic blood pressure 125 mm[Hg] Javier Woods [facility] 12-21-2022 13:35-0400 Body temperature 98.24 [degF] Charlie Rubalcava [facility] 12-21-2022 13:35-0400 Diastolic blood pressure 77 mm[Hg] Charlie Khadar [facility] 12-21-2022 13:35-0400 Heart rate 93 /min Charlie Khadar [facility] 12-21-2022 13:35-0400 Respiratory rate 18 /min Charlie Khadar [facility] 12-21-2022 13:35-0400 SaO2% (BldA) [Mass fraction] 99 % Charlie Rubalcava [facility] 12-21-2022 13:35-0400 Systolic blood pressure 128 mm[Hg] Charlie Khadar [facility] 09-05-2022 22:53-0500 Diastolic blood pressure 63 mm[Hg] Kaylinn Dokken [facility] 09-05-2022 22:53-0500 Heart rate 93 /min Kaylinn Dokken [facility] 09-05-2022 22:53-0500 Mean blood pressure 80 mm[Hg] Kaylinn Dokken [facility] 09-05-2022 22:53-0500 Respiratory rate 20 /min Kaylinn Dokken [facility] 09-05-2022 22:53-0500 SaO2% (BldA) [Mass fraction] 95 % Kaylinn Dokken [facility] 09-05-2022 22:53-0500 Systolic blood pressure 114 mm[Hg] Kaylinn Dokken [facility] 09-05-2022 21:45-0500 Diastolic blood pressure 60 mm[Hg] Kaylinn Dokken [facility] 09-05-2022 21:45-0500 Heart rate 97 /min Kaylinn Dokken [facility] 09-05-2022 21:45-0500 Mean blood pressure 80 mm[Hg] Kaylinn Dokken [facility] 09-05-2022 21:45-0500 Respiratory rate 16 /min Kaylinn Dokken [facility] 09-05-2022 21:45-0500 SaO2% (BldA) [Mass fraction] 93 % Kaylinn Dokken [facility] 09-05-2022 21:45-0500 Systolic blood pressure 119 mm[Hg] Kaylinn Dokken [facility] 09-05-2022 21:03-0500 Body temperature 97.52 [degF] Kaylinn Dokken [facility] 09-05-2022 21:03-0500 Diastolic blood pressure 56 mm[Hg] Kaylinn Dokken [facility] 09-05-2022 21:03-0500 Heart rate 115 /min Quita Clark [facility] 09-05-2022 21:03-0500 Respiratory rate 32 /min Perlan Gretaen [facility] 09-05-2022 21:03-0500 SaO2% (BldA) [Mass fraction] 95 % Quita Hernandesen [facility] 09-05-2022 21:03-0500 Systolic blood pressure 123 mm[Hg] Quita Hernandesen [facility] 04-14-2022 19:00-0400 Diastolic blood pressure 70 mm[Hg] Saúl Hubert [facility] 04-14-2022 19:00-0400 Heart rate 91 /min Saúl Hubert [facility] 04-14-2022 19:00-0400 Mean blood pressure 83 mm[Hg] Saúl Hubert [facility] 04-14-2022 19:00-0400 Respiratory rate 14 /min Saúl Hubert [facility] 04-14-2022 19:00-0400 SaO2% (BldA) [Mass fraction] 96 % Saúl Hubert [facility] 04-14-2022 19:00-0400 Systolic blood pressure 110 mm[Hg] Saúl Hubert [facility] 04-14-2022 18:22-0400 Diastolic blood pressure 64 mm[Hg] Saúl Hubert [facility] 04-14-2022 18:22-0400 Heart rate 87 /min Saúl Hubert [facility] 04-14-2022 18:22-0400 Mean blood pressure 76 mm[Hg] Saúl Hubert [facility] 04-14-2022 18:22-0400 Respiratory rate 20 /min Saúl Hubert [facility] 04-14-2022 18:22-0400 SaO2% (BldA) [Mass fraction] 95 % Saúl Hubert [facility] 04-14-2022 18:22-0400 Systolic blood pressure 100 mm[Hg] Saúl Hubert [facility] 04-14-2022 17:00-0400 Diastolic blood pressure 61 mm[Hg] Saúl Hubert [facility] 04-14-2022 17:00-0400 Respiratory rate 19 /min Saúl Hubert [facility] 04-14-2022 17:00-0400 SaO2% (BldA) [Mass fraction] 93 % Saúl Hubert [facility] 04-14-2022 17:00-0400 Systolic blood pressure 105 mm[Hg] Saúl Hubert [facility] 04-14-2022 15:35-0400 Heart rate 92 /min Saúl Hubert [facility] 04-14-2022 15:35-0400 Respiratory rate 16 /min Saúl Hubert [facility] 04-14-2022 14:48-0400 Body temperature 98.06 [degF] Saúl Hubert [facility] 04-14-2022 14:48-0400 Heart rate 113 /min Saúl Hubert [facility] 04-14-2022 14:48-0400 Respiratory rate 18 /min Saúl Hubert [facility] 11-19-2021 19:00-0400 Hourly Rounding Javier Peggy [facility] 11-19-2021 19:00-0400 Promise to Return Javier Reynae [facility] 11-19-2021 18:45-0400 Diastolic blood pressure 64 mm[Hg] Javier Peggy [facility] 11-19-2021 18:45-0400 Heart rate 85 /min Javier Peggy [facility] 11-19-2021 18:45-0400 Mean blood pressure 76 mm[Hg] Javier Peggy [facility] 11-19-2021 18:45-0400 Respiratory rate 16 /min Javier Peggy [facility] 11-19-2021 18:45-0400 SaO2% (BldA) [Mass fraction] 98 % Javier Peggy [facility] 11-19-2021 18:45-0400 Systolic blood pressure 100 mm[Hg] Javier Peggy [facility] 11-19-2021 18:15-0400 Diastolic blood pressure 70 mm[Hg] Javier Peggy [facility] 11-19-2021 18:15-0400 Heart rate 84 /min Javier Peggy [facility] 11-19-2021 18:15-0400 Mean blood pressure 85 mm[Hg] Javier Peggy [facility] 11-19-2021 18:15-0400 Respiratory rate 16 /min Javier Peggy [facility] 11-19-2021 18:15-0400 SaO2% (BldA) [Mass fraction] 96 % Javier Peggy [facility] 11-19-2021 18:15-0400 Systolic blood pressure 114 mm[Hg] Javier Woods [facility] 11-19-2021 17:45-0400 Diastolic blood pressure 71 mm[Hg] Javier Woods [facility] 11-19-2021 17:45-0400 Heart rate 86 /min Javier Woods [facility] 11-19-2021 17:45-0400 Mean blood pressure 81 mm[Hg] Javier Woods [facility] 11-19-2021 17:45-0400 Respiratory rate 16 /min Javier Woods [facility] 11-19-2021 17:45-0400 SaO2% (BldA) [Mass fraction] 97 % Javier Woods [facility] 11-19-2021 17:45-0400 Systolic blood pressure 102 mm[Hg] Javier Woods [facility] 11-19-2021 15:45-0400 Blood Pressure Location Javier Woods [facility] 11-19-2021 15:22-0400 Body temperature 98.24 [degF] Javier Woods [facility] 11-19-2021 15:22-0400 Heart rate 111 /min Javier Woods [facility] Encounters Encounter Date Encounter Type Care Provider Facility Start: 10-31-2023 End: 10-31-2023 ambulatory BHUMIKA CHEPE Not Available Start: 10-24-2023 End: 10-24-2023 ambulatory BRODERICK LIYA Not Available Start: 10-17-2023 End: 10-17-2023 ambulatory BHUMIKA CHEPE Not Available Start: 10-10-2023 End: 10-10-2023 ambulatory BRODERICK LIYA Not Available Start: 10-03-2023 End: 10-03-2023 ambulatory BRODERICK LIYA Not Available Start: 09-19-2023 End: 09-19-2023 ambulatory BHUMIKA MO Not Available Start: 09-04-2023 End: 09-04-2023 ambulatory BRODERICK LIYA Not Available Start: 08-22-2023 [facility] Result Encounter Bhumika Wailuku PA Work Phone: [facility] External Department Unsolicited Start: [...] 02-26-2023 Emergency department patient visit Charlie Rubalcava Facility:[facility] [facility] Start: 02-26-2023 End: 02-26-2023 Emergency department patient visit Charlie Rubalcava [facility] Start: 01-30-2023 End: 01-31-2023 ambulatory Willa Ted MONICA Facility:[facility] Start: 12-31-2022 End: 12-31-2022 Emergency department patient visit Javier Woods [place] Start: 12-31-2022 End: 12-31-2022 Emergency department patient visit Javier Woods [facility] Start: 12-30-2022 End: 12-30-2022 Emergency department patient visit Javier Woods [place] Start: 12-30-2022 End: 12-30-2022 Emergency department patient visit Javier Woods [facility] Start: 12-26-2022 End: 12-27-2022 ambulatory Johnjef MALONEY Facility:[facility] Start: 12-21-2022 End: 12-21-2022 Emergency department patient visit Charlie Rubalcava [place] Start: 12-21-2022 End: 12-21-2022 Emergency department patient visit Charlie Rubalcava [facility] Start: 12-15-2022 End: 12-16-2022 ambulatory John MALONEY Facility:[facility] Start: 09-05-2022 End: 09-06-2022 Emergency department patient visit Quita Cano Gretahannah [place] Start: 09-05-2022 End: 09-05-2022 Emergency department patient visit Quita Cano opal [facility] Start: 09-04-2022 End: 09-04-2022 Emergency department patient visit Solo Sheldon Lamin [place] Start: 07-27-2022 End: 07-27-2022 Emergency department patient visit Saúl Gaspar [place] Start: 04-14-2022 End: 04-14-2022 Emergency department patient visit Saúl Gaspar [place] Start: 04-14-2022 End: 04-14-2022 Emergency department patient visit Saúl Gaspar [facility] Start: 01-13-2022 End: 01-13-[address] HOLLIE RUBI Facility: Start: 11-19-2021 End: 11-19-2021 Emergency department patient visit Javier Woods [facility] Start: 07-05-2021 End: 07-06-2021 ambulatory [...] AM EST Routine [facility] [address] [place] [address] LiyaBroderick rodrigues, DO [address] [place] [address] [facility] Start: 08-21-2023 End: 08-21-2024 CBC panel - Blood by Automated count CBC Lab Routine Diabetes mellitus screening Expected: 08/21/2023 (Approximate), Expires: 08/21/2024 [facility] [employer] Work Phone: Comment on above: Expected: 08/21/2023 (Approximate), Expires: 08/21/2024 Start: 08-21-2023 End: 08-21-2024 Measurement of glucose 1 hour after glucose challenge for glucose tolerance test Glucose tolerance, 1 hour Lab Routine Diabetes mellitus screening Expected: 08/21/2023 (Approximate), Expires: 08/21/2024 [facility] Comment on above: Expected: 08/21/2023 (Approximate), Expires: 08/21/2024 Payers Date Payer Category Payer Medicaid [employer] [facility] [place] [id number] 2022-Present [address] [address] [place] [address] [id number] 1990 Unknown [id number] 2.16.840.1.814497.3.579.2.593 1990 Unknown [id number] 2.16.840.1.608477.3.579.2.593 1990 Unknown [id number] 2.16.840.1.628047.3.579.2.727 1990 Unknown [id number] 2.16.840.1.985524.3.579.2.727 1990 Unknown [id number] 2.16.840.1.864891.3.579.2.727 1990 Unknown [id number] 2.16.840.1.952604.3.579.2.727 1990 Unknown [id number] 2.16.840.1.655972.3.579.2.727 1990 Unknown [id number] 2.16.840.1.066794.3.579.2.727 1990 Unknown [id number] 2.16.840.1.448722.3.579.2.727 1990 Unknown [id number] 2.16.840.1.960105.3.579.2.727 1990 Unknown [id number] 2.16.840.1.285692.3.579.2.727 1990 Unknown [id number] 2.16.840.1.527994.3.579.2.727 1990 Unknown [id number] 2.16.840.1.856849.3.579.2.727 1990 Unknown [id number] 2.16.840.1.291886.3.579.2.1259 1990 Unknown [id number] 2.16.840.1.420199.3.579.2.1259 1990 Unknown [id number] 2.16.840.1.140584.3.579.2.1259 1990 Unknown [id number] 2.16.840.1.838349.3.579.2.1259 1990 Unknown [id number] 2.16.840.1.202131.3.579.2.1259 1990 Unknown [id number] 2.16.840.1.927503.3.579.2.1259 1990 Unknown [id number] 2.16.840.1.189991.3.579.2.1259 1990 Unknown [id number] 2.16.840.1.216407.3.579.2.1259 1990 Unknown [id number] 2.16.840.1.621547.3.579.2.1259 1990 Unknown [id number] 2.16.840.1.705039.3.579.2.1259 1959 Unknown [id number] Self-pay Social History Date Type Detail Facility Tobacco Cigarettes [facility] Comment on above: 1 ppd Sex Assigned At Female [facility] Start: 04-14-2022 Tobacco smoking status Heavy tobacco smoker (finding) [facility] Tobacco smoking status NHIS Tobacco smoking consumption unknown [facility] Start: 02-14-2023 [facility] Start: 1990 Sex Assigned At Not on file [facility] Functional Status Date Assessment Result Facility 02-26-2023 Functional Status N/A [facility] 12-31-2022 Functional Status N/A [facility] 12-30-2022 Functional Status N/A [facility] 12-21-2022 Functional Status N/A [facility] 09-05-2022 Functional Status N/A [facility] 04-14-2022 Functional Status N/A [facility] Clinical Notes 07-06-2021 to 08-21-2023 JOHN [...] JOHN PAUL Ardon documented in this encounter [facility] 02-26-2023 Hospital Discharg e [...] condition. 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 Avoid contact with people who have cold [...] it is easier to cough up. Take jcmm-hpm-muxwqxh and prescription medicines only as told by [...] provider. Document Revised: 10/27/2021 Document Reviewed: 10/27/2021 Purch Patient Education 2022 [employer]. Follow Up Care 02/26/2023 15:53:57 With:[facility] Address: [address] [place] [phone]- Business (1) When:03/01/2023 17:54:59 Comments:Call the office [...] you develop any new or worsening symptoms. [facility] 02-26-2023 Evaluation + Plan note Extrac kathi from: Title:ED Note Author:Juan Ott PA-C e:02/26/23 Bronchitis (J40: Bronchitis, not specified as acute or chronic) Upper respiratory infection (J06.9: Acute upper respiratory infection, unspecified) Orders: albuterol, 2 puff(s), Inhalation, q4hr for 7 day(s), 8.5 gm, Refill(s) 0, [facility], 160, cm, 02/26/23 15:59:00 EDT, Height/Length Dosing, 85.6, kg, 02/26/23 15:59:00 EDT, Weight Dosing brompheniramine/dextromethorphan/PSE, 5 mL, Oral, QID for cold symptoms, 200 mL, Refill(s) 0, [facility] 1985, 160, cm, 02/26/23 15:59:00 EDT, Height/Length Dosing, 85.6, kg, 02/26/23 15:59:00 EDT, Weight Dosing guaifenesin, 600 mg = 1 tab(s), Oral, q12hr, X 7 day(s), # 14 tab(s), Refills(s) 0, Pharmacy: [facility] 1985, 160, cm, 02/26/23 15:59:00 EDT, Height/Length Dosing, 85.6, kg, 02/26/23 15:59:00 EDT, Weight Dosing predniSONE, 60 mg = 3 tab(s), Oral, Daily, X 5 day(s), # 15 tab(s), Refills(s) 0, Pharmacy: [facility] 1985, 160, cm, 02/26/23 15:59:00 EDT, Height/Length Dosing, 85.6, kg, 02/26/23 15:59:00 EDT, Weight Dosing Rapid COVID Antigen ([facility] [facility]06-24-2023 Hospital Discharge instructions Patient Education [...] if you start to feel better. Take fekd-vhd-ezofeqz and prescription medicines only as told by [...] provider. Document Revised: 09/08/2021 Document Reviewed: 09/08/2021 Purch Patient Education 2022 [employer]. Follow Up Care 12/31/2022 10:02:50 With:Mark Burdett Address: [address] [place] [phone]- Business (1) When:01/03/2023 10:36:17 Comments:Follow-up with your primary care provider in 3 to 5 days. If symptoms worsen, do not improve, or new symptoms arise please report back to emergency department for further evaluation. [facility]06-23-2023 Hospital Discharge instructions Follow Up Care 12/30/2022 13:07:17 With:Mark Burdett Address: [address] [place] [phone]- Business (1) When:Within 3 Day(s) [facility]06-23-2023 Evaluation + Plan noteExtracted from: Title:ED Note Author:Javier Woods DO Date:12/09 09/29 Otitis externa, left (H60.92 : Unspecified otitis externa, left ear) Orders: ciprofloxacin-dexamethasone otic, 5 drop(s), Otic, BID for 7 day(s), 7.5 mL, Refill(s) 0, [facility], 160, cm, 12/30/22 13:14:00 EDT, Height/Length Dosing, 85.6, kg, 12/30/22 13:14:00 EDT, Weight Dosing [facility]06-14-2023 Hospital Discharge instructions Patient Education [...] or swathi your foot. General instructions Take hhkf-ojr-oyiainx and prescription medicines only as told by [...] provider. Document Revised: 10/16/2020 Document Reviewed: 10/16/2020 Purch Patient Education 2022 [employer]. 12/21/2022 14:54:11 Elastic Bandage and RICE Therapy [...] limityour activities and whether you should start eztuk-qy-niavmx exercises for your injury. Ice Ice your [...] provider. Document Revised: 08/21/2020 Document Reviewed: 03/16/2018 Purch Patient Education 2020 [employer]. 12/21/2022 14:54:11 Ankle Sprain, Phase II Rehab [...] by your health care provider. Stretching and vrygh-tt-xqayxg exercises These exercises warm up your muscles [...] provider. Document Revised: 08/19/2021 Document Reviewed: 08/19/2021 Purch Patient Education 2022 [employer]. 12/21/2022 14:54:11 Ankle Sprain, Phase I Rehab [...] told by your healthcare provider. Stretching and lwngk-ld-doqnya exercises These exercises warm up your muscles [...] provider. Document Revised: 08/19/2021 Document Reviewed: 08/19/2021 Purch Patient Education 2022 [employer]. 12/21/2022 14:54:11 Ankle Sprain, Wpvt-al-Hbqr Ankle Sprain An ankle sprain is a [...] blue. Managing pain, stiffness, and swelling Take acgd-kgj-ywqcfft and prescription medicines only as told by [...] provider. Document Revised: 08/19/2021 Document Reviewed: 08/19/2021 Purch Patient Education 2022 [employer]. Follow Up Care 12/21/2022 13:24:37 With:Mark Burdett Address: [address] [place], [place] [phone] Business (1) When:12/24/2022 14:27:12 Comments:Follow-up with your primary care provider in 3 to 5 days. If symptoms worsen, do not improve, or new symptoms arise please report back to emergency department for further evaluation. [facility]06-14-2023 Evaluation + Plan noteExtracted from: Title:ED Note Author:Loyd Lange PA-C te:12/21/22 Left ankle sprain (S93.402A: Sprain of unspecified ligament of left ankle, initial encounter) Sprain of left foot (S93.602A: Unspecified sprain of left foot, initial encounter) Orders: Crutches XR Ankle 3+ Views Left XR Foot 3+ Views Left [facility]02-28-2023 Hospital Discharge instructions Patient Education 09/05/2022 22:58:39 Hives, Cdnb-uh-Ybso Hives Hives are itchy, red, swollen areas [...] woman. Being allergic to foods such as: ?Moffat fruits. ?Milk. ?Eggs. ?Peanuts. ?Tree nuts. ?Shellfish. [...] instructions at home: Medicines Take or apply fvmt-ljb-kmgkmwq and prescription medicines only as told by [...] what causes your hives. Take and apply osds-unr-dbnqvvp and prescription medicines only as told by your doctor. Keep all follow-up visits as told by your doctor. This is important. This information is not intended to replace advice given to you by your health care provider. Make sure you discuss any questions you have with your health care provider. Document Released: 04/04/2009 Document Revised: 01/09/2019 Document Reviewed: 01/09/2019 Purch Patient Education 2020 [employer]. Follow Up Care 09/05/2022 21:02:01 With:KATJA MCGINNIS Address: [facility] [place] [address]- Business (1) When:09/08/2022 21:23:21 Comments:Follow-up for further evaluation of your urticarial rashes and reactions. With:Mark Pitts Address: [address] [place] [address]- Business (1) When:Within 3 Day(s) [facility]02-27-2023 Evaluation + Plan noteExtracted from: Title:ED Note Author:Nazario CAO, Loyd Matute te:09/05/22 Allergic reaction (T78.40XA: Allergy, unspecified, initial encounter) Urticaria (L50.9: Urticaria, unspecified) Orders: diphenhydrAMINE, 25 mg = 0.5 mL, Injection, IV Push, Once, Stop date 09/05/22 21:11:00 EST, STAT, Start date 09/05/22 21:11:00 EST, 09/05/22 21:11:00 EST epinephrine, 0.3 mg, IntraMuscular, Once, # 1 kit(s), Refills(s) 1, Pharmacy: [facility], 160, cm, 09/05/22 21:08:00 EST, [...] day(s), # 21 tab(s), Refills(s) 0, Pharmacy: [facility], 160, cm, 09/05/22 21:08:00 EST, Height/Length Dosing, 85.6, kg, 09/05/22 21:08:00 EST, Weight Dosing Sodium Chloride 0.9% intravenous solution, 1,000 mL, Soln-IV, IV, Once, Stop date 09/05/22 21:11:00 EST, STAT, Start date 09/05/22 21:11:00 EST, mL/hr, Infuse over 61, minute(s) [facility]10-06-2022 Hospital Discharge instructions Patient Education [...] symptoms? Symptoms of anaphylaxis may include: Feeling insurance commissioner the face (flushed). This may include redness. [...] you have hives or rash: ?Use an fitv-wid-zpwqune antihistamine as told by your health care provider. ?Apply cold, wet cloths (cold compresses) to your skin or take baths or showers in cool water. Avoid hot water. Take xaxo-lil-kzvjgqa and prescription medicines only as told by your health care provider. Tell all your health care providers that you have an allergy. Keep all follow-up visits as told by your health care provider. This is important. How is this prevented? Avoid allergens that have caused an anaphylactic reaction in the past. When you are at a restaurant, tell your service observer chief that you have an allergy. If you are not sure whether a menu item contains an ingredient that you are allergic to, ask your service observer chief. Where to find more information [employer] [employer]: aaaai.org [employer] [employer]: healthychildren.org Get help right [...] 06/26/2006 Document Revised: 10/18/2018 Document Reviewed: 10/18/2018 Purch Patient Education 2020 [employer]. Follow Up Care 04/14/2022 14:45:49 With:Mark Burdett Address: [address] [place], [place] [phone]- [facility] (1) When:04/17/2022 18:33:05 [facility]05-13-2022 Hospital Discharge instructions Patient Education [...] have symptoms of anaphylaxis, such as: Feeling insurance commissioner the face (flushed). This may include redness. [...] you are at a restaurant, tell your service observer chief that you have an allergy. If you are unsure whether a meal has an ingredient that you are allergic to, ask your service observer chief. Take buua-cww-lsmqbkg and prescription medicines only as told by [...] 06/23/2001 Document Revised: 06/26/2018 Document Reviewed: 06/26/2018 Purch Patient Education 2020 [employer]. Follow Up Care 11/19/2021 15:20:25 With:[facility] Address: [address] [place] [address] Business (1) When:11/22/2021 18:25:35 [facility]12-28-2021 NotePROCEDURE: CTA CHEST WO W [...] authenticated by: TULIO VILLASEÑOR Date: 2021-07-05 23:35[facility] No data available for this section [facility] Diagnosis Third trimester state, incidental Diabetes mellitus screening Screening for diabetes mellitus BV (bacterial vaginosis) Unspecified vaginitis and vulvovaginitis Nausea Nausea alone documented in this encounter [facility] No data available for this section [facility] Summary Purpose Family History No Family History Records FoundNo Family History Records FoundNo Family History Records Found Advance Directives No Advanced Directives Records FoundNo Advanced Directives Records FoundNo Advanced Directives Records Found Additional Source Comments INFORMATION SOURCE (unrecogn ized section and content) DATE CREATED AUTHOR 01/17/2022 [facility] DATE CREATED AUTHOR AUTHOR'S ORGANIZ ATION 02/26/2023 [facility] DATE CREATED AUTHOR AUTHOR'S ORGANIZ ATION 11/01/2023 [facility] EPIC Patient Care team informatio n (unrecognized section and content) End Lathe Operator Relationship Specialty Start Date End Date Mark Pitts MD [address] [place] [id number] PCP - General Family Medicine 04/14/23 End Lathe Operator Relationship Specialty Start Date End Date Mark Pitts MD [address] [place] [id number] PCP - General Family Medicine 04/14/23 Reason [...] BE BASED ON THE PRIMARY CLINICAL RECORDS. [facility] [employer] [facility]. provides no warranty or guarantee of the accuracy or completeness of information in this document.
[2024-01-31 14:13] VITALS: O2SAT 94
[2024-01-31 14:37] LABS: SARS-CoV-2 Ag NEGATIVE (NEGATIVE)
[2024-01-31 14:38] LABS: Internal Control Within Normal Limits
--- NOTE | 2024-01-31 14:46 | XR_ITS ---
The [address] [address] Patient Name: RJ ELENA MRN: [id number] date: 1990 Sex: F Assigned Patient Location: ER Current Patient Location: ER Accession/Order Number: [id number] Exam Date: 01/31/2024 15:00 Report Date: 01/31/2024 15:22 At the request of: ALESIA COSBY Procedure: XR chest 1V EXAM: XR chest 1V HISTORY: cough COMPARISON: Chest study dated 09/19/2023 TECHNIQUE: AP view of the chest was obtained with portable technique at 2:52 PM. FINDINGS: Heart and mediastinal contours are unremarkable in appearance. No acute infiltrate or consolidations are seen. Mild prominence of bronchovascular markings which can be correlated for bronchitis. No obvious pneumothorax. Bony structures appear grossly intact. XR/XR chest 1V IMPRESSION: Correlate for mild bronchitis. Electronically authenticated by: PRINCESS DAY Date: 01/31/2024 15:22
--- NOTE | 2024-01-31 14:47 | ED.URI1 ---
HPI - URI/Sore Throat General Chief Complaint: Upper Respiratory Infection Stated Complaint: HEAD CONGESTION, COUGH Time Seen by Provider: 01/31/24 14:44 Source: patient History of Present Illness HPI Narrative: Patient is a 33-year-old female who presents to the emergency department for a 2-day history of sinus congestion, intermittently productive cough. She states she coughed so hard that she peed her pants and thought that she should come to the ER to be evaluated. She is 3 months , she is currently breast-feeding. No objective fevers. No vomiting or diarrhea. No sick contacts. Related Data Home Medications ?Medication ?Instructions ?Recorded ?Confirmed polysaccharide iron complex 180 mg 180 mg PO DAILY 11/01/23 11/01/23 iron capsule (Pro Fe) vit no.95-ferrous 1 tab PO DAILY 11/01/23 11/01/23 fumarate 28 mg-folic acid 800 mcg tablet () Previous Rx's ?Medication ?Instructions ?Recorded ondansetron 4 mg disintegrating 4 mg PO Q6H PRN nausea and 03/28/23 tablet vomiting #12 tabs albuterol sulfate 90 mcg/actuation 2 inh inhalation Q4H PRN shortness 01/31/24 aerosol inhaler of breath or wheezing #8.5 grams prednisone 20 mg tablet See Rx Instructions .Route 01/31/24 .COMPLEX #12 tabs Allergies Allergy/AdvReac Type Severity Reaction Status Date / Time amoxicillin Allergy Severe Verified 09/19/23 10:13 codeine Allergy Severe Verified 09/19/23 10:13 ibuprofen Allergy Severe Verified 09/19/23 10:13 Penicillins Allergy Severe Verified 09/19/23 10:13 Review of Systems ROS Constitutional Denies: fever or chills Ears, nose, mouth, and throat Reports: throat pain and nasal congestion Cardiovascular Denies: chest pain Respiratory Reports: cough; Denies: shortness of breath Gastrointestinal Denies: nausea, vomiting or diarrhea Integumentary/Breast Denies: rash Neurological Denies: headache Hematologic/Lymphatic Denies: easy bruising or easy bleeding PFSH PFSH Social History Smoking status: Current every day smoker What tobacco products do you use: cigarettes Packs per day: 1 Highest level of school completed/degree received: high school graduate Exam Narrative Exam Narrative: Gen.: Awake, alert, in no distress Head: Normocephalic, atraumatic ENT: Moist mucous membranes, bilateral TMs clear, no pharyngeal erythema with uvula midline and clear speech. Respiratory: No respiratory distress, lungs clear bilaterally, no wheezing or rhonchi Cardio: Regular rate and rhythm Extremities: Moves extremities equally Psych: Normal mood and affect Neuro: No focal neuro deficit Skin: Warm, dry, intact Constitutional Vital Signs, click to edit/add: Last Vital Signs Temp 98.1 F 01/31/24 14:03 Pulse 88 01/31/24 14:03 Resp 16 01/31/24 14:03 BP 127/72 01/31/24 14:03 Pulse Ox 94 L 01/31/24 14:13 O2 Del Method Room Air 01/31/24 14:13 Course Vital Signs Vital signs: Vital Signs Temperature 98.1 F 01/31/24 14:03 Pulse Rate 88 01/31/24 14:03 Respiratory Rate 16 01/31/24 14:03 Blood Pressure 127/72 01/31/24 14:03 Pulse Oximetry 94 L 01/31/24 14:03 Oxygen Delivery Method Room Air 01/31/24 14:03 Temperature 98.1 F 01/31/24 14:03 Pulse Rate 88 01/31/24 14:03 Respiratory Rate 16 01/31/24 14:03 Blood Pressure 127/72 01/31/24 14:03 Pulse Oximetry 94 L 01/31/24 14:13 Oxygen Delivery Method Room Air 01/31/24 14:13 MDM - URI/Sore Throat MDM Narrative Medical decision making narrative: COVID test is negative and chest x-ray with no evidence of consolidated infiltrate. Radiologist suggested to correlate for mild bronchitis, however the patient has been sick for 2 days with no fever, wheezing. Will treat with steroid taper and albuterol inhaler. Likely viral process. Follow-up with PCP and return to the ER if symptoms change or worsen. SUPERVISED APC VISIT, PHYSICIAN ATTESTATION: Based on the medical record the care appears appropriate. ? Medical Records Attestation: I reviewed the patient's medical records. Lab Data Attestation: I reviewed the patient's lab results. Labs: Lab Results 01/31/24 Range/Units 14:30 SARS-CoV-2 Ag (CV2AG) Negative (NEGATIVE) Imaging Data Chest x-ray: Attestation: I have reviewed the pertinent imaging results. Radiologist's impression: ITS Impressions Chest X-Ray 01/31/24 14:46 IMPRESSION: Correlate for mild bronchitis. Electronically authenticated by: PRINCESS DAY Date: 01/31/2024 15:22 Discharge Plan Discharge Stand Alone Forms: Portal Instructions Chief Complaint: Upper Respiratory Infection Clinical Impression: Upper respiratory infection Patient Disposition: Home, Self-Care Time of Disposition Decision: 15:26 Condition: Good Prescriptions / Home Meds: New prednisone 20 mg tablet See Rx Instructions .ROUTE .COMPLEX Qty: 12 0RF Rx Instructions: 3 tabs daily for 2 days, then 2 tabs daily for 2 days, then 1 tab daily for 2 days albuterol sulfate 90 mcg/actuation HFA aerosol inhaler 2 inh inhalation Q4H PRN (Reason: shortness of breath or wheezing) Qty: 8.5 0RF No Action ondansetron 4 mg tablet,disintegrating 4 mg PO Q6H PRN (Reason: nausea and vomiting) Qty: 12 0RF Pro Fe 180 mg iron capsule 180 mg PO DAILY PNV cmb#95-ferrous fumarate-FA [] 28 mg iron- 800 mcg tablet 1 tab PO DAILY Print Language: Swedish Instructions: Upper Respiratory Infection (ED) Referrals: Physician,Non-Staff, MD [Primary Care Provider] - 1 week
== END 2024-01-31 15:41 | disposition home or self-care (01) ==
PROVIDERS: Emergency Provider Emergency Medicine
DX: J06.9 Acute upper respiratory infection, unspecified (principal); F17.210 Nicotine dependence, cigarettes, uncomplicated; Z20.822 Contact with and (suspected) exposure to COVID-19
CPT/HCPCS: 71045; 87811; 99284

== ENCOUNTER 2024-04-18 12:22 | Emergency (ER) | payer OTHER, SELFPAY ==
[2024-04-18 12:28] VITALS: BP 119/72; PULSE 95; TEMP 36.7; O2SAT 95; BMI 32.4
--- OUTSIDE RECORDS SUMMARY | 2024-04-18 12:28 | XMS_ITS | CCD ---
Author Organization [facility] Care Team Providers Care Glass Fitter Name Role Phone Mark Pitts Primary Care [...] Unavailable GREYSON, DR BROWNE Admitting Unavailable Hubert, aSúl Attending Unavailable Hubert, Saúl Attending Unavailable Khadar, [...] sources) Codeine; Translations: [codeine] Drug Allergy 3 [facility] (8 sources) Penicillin; Translations: [penicillin] Drug Allergy [facility] (1 source) Clindamycin Drug Allergy [facility] Rep[facility] (1 source) Codeine Drug Allergy 4 [facility] Rep[facility] (1 source) Penicillins Drug allergy (disorder) 4 [facility] Repository (10 sources) Ibuprofen; Translations: [ibuprofen] Drug Allergy 3 Anaphylaxis (disorder), [facility] (6 sources) Amoxicillin; Translations: [amoxicillin] Drug Allergy 3 [facility] (3 sources) Penicillins Propensity to adverse reactions 3 [facility] Medications Current Medications Medication Drug Class(es) Dates Sig (Normalized) Sig (Original) Albuterol (Eqv-ProAir HFA) 90 mcg/inh inhalation aerosol (1 source) Start: 02-26-2023 End: 03-05-2023 take 2 puff(s) by inhalation every four hours Albuterol (Eqv-ProAir HFA) 90 mcg/inh inhalation aerosol 2 puff(s), Inhalation, q4hr for 7 day(s), 8.5 gm, Refill(s) 0, [facility], 160, cm, 02/26/23 15:59:00 EDT, Height/Length Dosing, 85.6, kg, 02/26/23 15:59:00 EDT, Weight Dosing Start Date: 02/26/23 Stop Date: 03/05/23 Status: Ordered brompheniramine maleate 0.4 mg/ml / dextromethorphan hydrobromide 2 mg/ml / pseudoephedrine hydrochloride 6 mg/ml oral solution (9 sources) alpha-Adrenergic Agonist, Uncompetitive P-cgssbj-Y-aspartat e Receptor Antagonist, Sigma-1 Agonist Start: 02-27-2023 [...] for cold symptoms, 200 mL, Refill(s) 0, [facility] 1985, 160, cm, 02/26/23 15:59:00 EDT, Height/Length Dosing, 85.6, kg, 02/26/23 15:59:00 EDT, Weight Dosing Start Date: 02/26/23 Status: Ordered ciprofloxacin 3 mg/ml / dexamethasone 1 mg/ml otic suspension (2 sources) Corticosteroid, Quinolone Antimicrobial Start: 12-30-2022 End: 01-06-2023 Ciprodex 0.3%-0.1% Susp-Otic 5 drop(s), Otic, BID for 7 day(s), 7.5 mL, Refill(s) 0, [facility], 160, cm, 12/30/22 13:14:00 EDT, Height/Length Dosing, 85.6, kg, 12/30/22 13:14:00 EDT, Weight Dosing Start Date: 12/30/22 Stop Date: 01/06/23 Status: Ordered [id number] 0.3 ml EPINEPHrine 1 mg/ml auto-injector (9 [...] inventory, # 1 kit(s), Refills(s) 0, Pharmacy: [facility] [...] day(s), # 7 tab(s), Refills(s) 0, Pharmacy: [facility] [...] day(s), # 7 tab(s), Refills(s) 0, Pharmacy: [facility] [...] l route once daily Flonase 0.05 mg/inh [place] 2 spray(s), Nasal, Daily, 16 gram, Refill(s) 0, each nostril, [facility] [...] day(s), # 14 tab(s), Refills(s) 0, Pharmacy: [facility] [...] day(s), # 15 tab(s), Refills(s) 0, Pharmacy: [facility], 160, cm, 02/26/23 15:59:00 EDT, Height/Length Dosing, 85.6, kg, 02/26/23 15:59:00 EDT, Weight Dosing Start Date: 02/26/23 Stop Date: 03/03/23 Status: Ordered Start: 09-05-2022 End: 09-12-2022 take 3 tablets by mouth once daily predniSONE 20 mg Tab 60 mg = 3 tab(s), Oral, Daily, X 7 day(s), # 21 tab(s), Refills(s) 0, Pharmacy: [facility], 160, cm, 09/05/22 21:08:00 EST, Height/Length Dosing, 85.6, kg, 09/05/22 21:08:00 EST, Weight Dosing Start Date: 09/05/22 Stop Date: 09/12/22 Status: Ordered Start: 04-14-2022 End: 04-21-2022 take 3 tablets by mouth once daily predniSONE 20 mg Tab 60 mg = 3 tab(s), Oral, Daily, X 7 day(s), # 21 tab(s), Refills(s) 0, Pharmacy: [facility], 160, cm, 04/14/22 14:56:00 EDT, Height/Length Dosing, 83, kg, 04/14/22 14:56:00 EDT, Weight Dosing Start Date: 04/14/22 Stop Date: 04/21/22 Status: Ordered Start: 11-19-2021 End: 11-26-2021 take 3 tablets by mouth once daily predniSONE 20 mg Tab 60 mg = 3 tab(s), Oral, Daily, X 7 day(s), # 21 tab(s), Refills(s) 0, Pharmacy: [facility] [...] q4hr, # 14 tab(s), Refills(s) 0, Pharmacy: [facility] 1985 Start Date: 03/21/19 Status: Ordered traMADol hydrochloride 50 mg oral tablet (1 source) Opioid Agonist Start: 12-31-2022 End: 01-03-2023 take 1 tablet by mouth every six hours as needed for pain traMADOL 50 mg Tab 50 mg = 1 tab(s), Oral, q6hr, PRN for pain, X 3 day(s), # 12 tab(s), Refills(s) 0, Pharmacy: [facility] [...] TID, # 15 tab(s), Refills(s) 0, Pharmacy: [facility], 160, cm, 08/05/19 9:28:00 EST, Height/Length Measured, 86.5, kg, 08/05/19 9:28:00 EST, Weight Measured Start Date: 08/05/19 Status: Ordered Start: 03-21-2019 take 1 tablet by savannah th every six hours Zofran ODT 4 mg Tab-Dis 4 mg = 1 tab(s), Oral, q6hr, # 10 tab(s), Refills(s) 0, Pharmacy: [facility] [...] te Episodic/Chronic Other aftercare (1 source) Other [facility] (current) drug therapy; Translations: [OTH NURSING HOME CURRENT DRUG THERAPY] Onset: 07-07-2021 Episodic Other [...] [Ratio] 15.0 % 11.0 - 15.0 % [facility] Hematocrit (Bld) [Volume fraction] 31.4 % Low 36.0 - 48.0 % [facility] Hemoglobin (Bld) [Mass/Vol] 9.7 g/dL Low 12.0 - 16.0 g/dL [facility] IMMATURE GRANULOCYTES ABS AUTO 0.05 High [facility] Immature granulocytes/100 WBC (Bld) 0.4 % 0.0 - 0.5 % [facility] Interpretation and review of laboratory results Abnormal [facility] LYMPHOCYTES ABSOLUTE AUTO 2.6 [facility] Lymphocytes/100 WBC (Bld) 19.4 % Low 20.5 - 60.0 % [facility] MCH (RBC) [Entitic mass] 25.3 pg Low 26.7 - 34.0 pg [facility] MCHC (RBC) [Mass/Vol] 30.9 g/dL 29.9 - 35.2 g/dL [facility] MCV (RBC) [Entitic vol] 82.0 fL 81.0 - 99.0 fL [facility] MONOCYTES ABSOLUTE AUTO 0.3 [facility] Monocytes/100 WBC (Bld) 2.6 % 1.7 - 12.0 % [facility] NEUTROPHILS ABSOLUTE AUTO 10.2 High [facility] Neutrophils/100 WBC (Bld) 76.7 % High 43.0 - 75.0 % [facility] Platelet mean volume (Bld) [Entitic vol] 10.6 fL 9.5 - 13.5 fL [facility] TBH EO # 0.1 [facility] TB PLT 176 [facility] RBC 3.83 Low [facility] WBC 13.3 High [facility] Urinalysis macro (dipstick) panel (U)on 08-21-2023 Bilirubin, UA Negative Negative - 4(70) +++ mg/dL [facility] Blood, UA Negative Negative - 50 Juan Alberto/mcL [facility] Clarity, UA Clear [facility] Color, UA Yellow [facility] Glucose, UA Negative Negative - 2000(110) ++++ mg/dL [facility] Interpretation and review of laboratory results Normal [facility] Ketones, UA Negative Negative - 160(16) ++++ mg/dL [facility] Leukocytes, UA Negative Negative - 500+++ Geovani/mcL [facility] Nitrite, UA Negative Negative - Positive [facility] pH, UA 7.0 5 - 9 [facility] Protein, UA Negative Negative - 1999(20) ++++ mg/dL [facility] Spec Grav, UA 1.015 1 - 1.03 [facility] Urobilinogen, UA 0.2 0.2 - 12 mg/dL [facility] Cytology Cervical or vaginal smear or scraping studyon 06-15-2023 [facility] Consent for Treatmenton 02-08 Consent for Treatment [id number]#1 .00CD:127 Normal [facility] Discharge Instructionson Discharge Instructions [id number]# 1.00CD:127 Normal [facility] ED Clinical Summaryon 2022 ED Clinical Summary [address] [address] ED Clinical Summary Person Information Name: RJ ELENA Calista/[facility] Age: 32 Years : 1990 Sex: Female Language: Citizen [place] PCP: Mark Pitts DO Marital Status: Single Phone: [phone] Visit Id: Visit Reason: Shortness of breath; [...] 18:10:02 02/26/2023 18:10:02 02/26/2023 18:10:02 ADDRESS: [address] [place] [address] [address] [facility] [id number] PHYS DOC NOTES: MEDICAL INFORMATION: Prescriptions Given: New Medications [facility], [address] [place], [place] [id number], [phone] albuterol (Albuterol (Eqv-ProAir HFA) 90 mcg/inh inhalation aerosol) 2 Puffs Inhalation every 4 hours for 7 Days. Refills: 0. guaifenesin (Mucinex 600 mg Tab-ER) 1 Tablets By Mouth every 12 hours for 7 Days. Refills: 0. Medications to Continue Taking That Have Changed [facility], [address] [place] [id number], [phone] START: brompheniramine/dextr omethorphan/PSE (Bromfed DM oral syrup) [...] Refills: 0. fluticasone nasal (Flonase 0.05 mg/inh [place]) 2 Sprays Nasal Inhalation every day. each [...] Follow up: With: Address: When: Mark Pitts [address] [place], [place] [id number] Business (1) In 3 days 03/01/2023 Comments: [...] symptoms. DIAGNOSIS: Bronchitis; Upper respiratory infection Normal [facility] ED Note-Physicianon 02-27-20 ED Note-Physician Basic Information [...] and Complexity of Problems Differential Diagnosis: [] [facility] Data External documents reviewed: [] My EKG [...] taken them within the last 30 days. [[facility] PERFORMANCE EXCEPTION/EXCLUSION] [ ] The patient [...] for 7 day(s), 8.5 gm, Refill(s) 0, [facility], 160, cm, 02/26/23 15:59:00 EDT, Height/Length Dosing, 85.6, kg, 02/26/23 15:59:00 EDT, Weight Dosing brompheniramine/dextr omethorphan/PSE, 5 mL, Oral, QID for cold symptoms, 200 mL, Refill(s) 0, [facility] 1985, 160, cm, 02/26/23 15:59:00 EDT, Height/Length Dosing, 85.6, kg, 02/26/23 15:59:00 EDT, Weight Dosing guaifenesin, 600 mg = 1 tab(s), Oral, q12hr, X 7 day(s), # 14 tab(s), Refills(s) 0, [facility], 160, cm, 02/26/23 15:59:00 EDT, Height/Length Dosing, 85.6, kg, 02/26/23 15:59:00 EDT, Weight Dosing predniSONE, 60 mg = 3 tab(s), Oral, Daily, X 5 day(s), # 15 tab(s), Refills(s) 0, Pharmacy: [facility] (more content not included)... Normal [facility] Comment on above: Result Comment: Elec tronically [...] Follow these instructions at home: ? Take dsvm-zpl-cjggtsx and prescription medicines only as told by [...] and water are not available, use hand buyer internship. ? Avoid contact with people who have [...] is easier to cough up. ? Take pyie-bbm-scdrdeq and prescription medicin (more content not included)... Normal [facility] ED Patient Summaryon 023 ED Patient Summary [place] [id number] Patient Discharge Instructions Person Information Name: RJ ELENA Age: 32 Years Arrival Date: 02/26/2023 15:53:15 Discharge Diagnosis: Bronchitis; Upper respiratory infection Primary Care Physician: Mark Pitts DO Provider Information Primary Provider: Charlie Rubalcava DO [employer] Music Teacher:Juan Ott PA-C The exam and treatment you received in the Emergency Department were for an urgent problem and are not intended as complete care. It is important that you follow up with a doctor, nurse practitioner, or physician?s insurance claims assistant for ongoing care. If your symptoms [...] Follow-up Instructions: With: Address: When: Mark Pitts [address] [place] [address] [facility] (1) In 3 days 03/01/2023 [...] opioids can be used to help relieve liajsyyf-vd-mwfddh pain and are often prescribed following a [...] and family) (more content not included)... Normal [facility] MICRO OTHER TESTSOrdered By: Juvenal Macario on 02-26-2023 Rapid COV Int NEG Ctl Pass (02/26/23 4:45 PM) Normal [facility] [place] Rapid COV Int POS Ctl Pass (02/26/23 4:45 PM) Normal [facility] [place] SARS-CoV+SARS-CoV-2 (COVID-19) Ag IA.rapid Ql (Resp) Not Detected (02/26/23 4:45 PM) Normal Not Detected [facility] Prescriptions/Work Noteson 0 02-26-2023 Prescriptions/Work Notes [id number]# 1.00CD:127 Normal [facility] Rapid COVID Antigen ([facility])on 02-26-2023 Rapid COV Int NEG Ctl Pass Normal [facility] Comment on above: Performed By: #### 2 [id number] ####[facility] [address] [place] [address] Rapid COV Int POS Ctl Pass Normal [facility] Comment on above: Performed By: #### 2 [id number] ####[facility] [address] [place] [address] SARS-CoV+SARS-CoV-2 (COVID-19) Ag IA.rapid Ql (Resp) Not detected Normal Not Detected [facility] Comment on above: Result Comment: The [employer]? System for Rapid Detection of SARS-CoV-2 is [...] or revoked sooner. Performed By: #### 2 [id number] ####[place] [address] ADMITTED TO INTENSIVE CARE UNIT FOR CONDITION OF INTEREST:FIND:PT: NO Normal [facility] Comment on above: Performed By: #### 2 [id number] ####[place] [address] EMPLOYED IN A HEALTHCARE SETTING:FIND:PT: NO Normal [facility] Comment on above: Performed By: #### 2 [id number] ####[place] [address] FIRST TEST FOR CONDITION OF INTEREST:FIND:PT: Unknown Normal [facility] Comment on above: Performed By: #### 2 [id number] ####[place] [address] HAS SYMPTOMS RELATED TO CONDITION OF INTEREST:FIND:PT: YES Normal [facility] Comment on above: Performed By: #### 2 [id number] ####[place] [address] HOSPITALIZED FOR CONDITION OF INTEREST:FIND:PT: NO Normal [facility] Comment on above: Performed By: #### 2 [id number] ####[place] [address] STATUS:FIND:PT: NO Normal [facility] Comment on above: Performed By: #### 2 [id number] ####[place] [address] [facility]:FIND:PT: NO Normal [facility] Comment on above: Performed By: #### 2 [id number] ####[place] [address] XR Chest 2 Viewson 3 XR Chest [...] mGy = na DAP = na Normal [facility] In office Testingon 01-31-20 23 In office Testing [id number]#1 .00CD:127 Normal [facility] Registrationon 01-30-2023 Registration [id number]# 1.00CD:127 Normal [facility] ED Note-Physicianon 01-10-20 ED Note-Physician Basic Information [...] and Complexity of Problems Differential Diagnosis: [] [facility] Data External documents reviewed: [] My EKG [...] Daily, 16 gram, Refill(s) 0, each nostril, [facility], 160, cm, 12/31/22 10:20:00 EDT, Height/Length Dosing, 85.6, kg, 12/31/22 10:20:00 EDT, Weight Dosing tramadol, 50 mg = 1 tab(s), Oral, q6hr, PRN for pain, X 3 day(s), # 12 tab(s), Refills(s) 0, Pharmacy: [facility], 160, cm, 12/31/22 10:20:00 EDT, Height/Length Dosing, 85.6, kg, 12/31/22 10:20:00 EDT, Weight Dosing Disposition Plan Patient Discharge Condition Stable Discharge Disposition To home Discharge Prescription List Prescriptions Ciprodex 0.3%-0.1% Susp-Otic, 5 drop(s), Otic, BID Flonase 0.05 mg/inh [place], 2 spray(s), Nasal, Daily traMADOL 50 mg Tab, 50 mg= 1 tab(s), Oral, q6hr, PRN Follow-up With When Contact Information Mark Pitts In 3 days 01/03/2023 EDT [address] [place] [address]- Business (1) Additional Instructions: Follow-up with your primary care provider in 3 to 5 days. If symptoms worsen, do not improve, or new symptoms arise please report back to emergency department for further evaluation. Patient Education Otitis Externa Attestation Patient seen and evaluated by the physician insurance claims assistant. Attending physician was present in the emergency department and supervised care. This visit was performed by both the physician and an APC. I performed all aspects of the MDM as documented. This report was transcribed u (more content not included)... Normal [facility] Comment on above: Result Comment: Elec tronically Signed By: Loyd Lange PA-C\.br\Date and Time Signed: 12/31/22 11:53 EDT\.br\Electronically Co-Signed By: Javier Woods DO\.haris\Date and Time Co-Signed: 01/09/23 07:15 EDT Consent for Treatmenton 12-09 Consent for Treatment [id number] .00CD:127 Normal [facility] Discharge Instructionson Discharge Instructions [id number]# 1.00CD:127 Normal [facility] ED Clinical Summaryon 2022 ED Clinical Summary [address] [address] ED Clinical Summary Person Information Name: RJ ELENA[place] Age: 32 Years : 1990 Sex: Female Language: Citizen [place] PCP: Mark Pitts DO Marital Status: Single Phone: [phone] Visit Id: Visit Reason: Ear pain; EAR [...] 10:41:35 ADDRESS: [address] [place] [id number] PHYS DOC NOTES: MEDICAL INFORMATION: Prescriptions Given: New Medications [facility], [address] [place], [place] [id number], [phone] fluticasone nasal (Flonase 0.05 mg/inh [place]) 2 Sprays Nasal Inhalation every day. each [...] Follow up: With: Address: When: Mark Pitts [address] [place] [address] Business (1) In 3 days 01/03/2023 Comments: Follow-up with your primary care provider in 3 to 5 days. If symptoms worsen, do not improve, or new symptoms arise please report back to emergency department for further evaluation. DIAGNOSIS: Bilateral otitis externa Normal [facility] ED Patient Education Noteon 12-31-2022 ED Patient [...] you start to feel better. ? Take auxw-fsd-gfiylit and prescription medicines only as told by [...] provider. Document Revised: 09/08/2021 Document Reviewed: 09/08/2021 [employer] Patient Education ? 2022 [employer] Normal [facility] ED Patient Summaryon 023 ED Patient Summary [place] [id number] Patient Discharge Instructions Person Information Name: RJ ELENA Age: 32 Years Arrival Date: 12/31/2022 10:01:25 Discharge Diagnosis: Bilateral otitis externa Primary Care Physician: Mark Pitts DO Provider Information Primary Provider: Javier Woods DO [employer] Music Teacher:None The exam and treatment you received in the Emergency Department were for an urgent problem and are not intended as complete care. It is important that you follow up with a doctor, nurse practitioner, or physician?s insurance claims assistant for ongoing care. If your symptoms [...] Follow-up Instructions: With: Address: When: Mark Pitts [address] [place], [place] [phone] Business (1) In 3 days 01/03/2023 Comments: [...] opioids can be used to help relieve yeohdpsi-ns-ulmbfe pain and are often prescribed following a [...] ? (more content not included)... [facility] Consent for Treatmenton 12-09 Consent for Treatment [id number]#1 .00CD:127 [facility] Discharge Instructionson Discharge Instructions [id number]# 1.00CD:127 [facility] ED Clinical Summaryon 2022 ED Clinical Summary [address] [address] ED Clinical Summary Person Information Name: RJ ELENA [place] Age: 32 Years : 1990 Sex: Female Language: Citizen [place] PCP: Mark Pitts DO Marital Status: Single Phone: [phone] Visit Id: Visit Reason: Ear pain; DOUBLE [...] 13:59:40 12/30/2022 13:59:40 12/30/2022 13:59:40 ADDRESS: [address] [place] [address] [place] [id number] [facility] DOC NOTES: MEDICAL INFORMATION: Prescriptions Given: New Medications [facility], [address] [place], [place] [address], [phone] ciprofloxacin-dexamet hasone otic (Ciprodex 0.3%-0.1% Susp-Otic) 5 [...] INFORMATION: Instructions: Follow up: With: Address: When: [address] [address] Business (1) In 3 days DIAGNOSIS: Otitis externa, left Normal [facility] ED Note-Physicianon 12-31-19 ED Note-Physician Basic Information [...] Mark Pitts In 3 days [address] [facility] (1) Additional Instructions: Problem List/Past [...] Diagnostic Results No qualifying data available. Normal [facility] Comment on above: Result Comment: Elec tronically Signed By: Javier Woods DO\.br\Date and Time Signed: 12/30/22 13:54 EDT ED Patient Education Noteon 12-30-2022 ED Patient Education Note Normal [facility] ED Patient Summaryon 023 ED Patient Summary [place] [id number] Patient Discharge Instructions Person Information Name: RJ ELENA Age: 32 Years Arrival Date: 12/30/2022 13:06:22 Discharge Diagnosis: Otitis externa, left Primary Care Physician: Mark Pitts DO Provider Information Primary Provider: Javier Woods DO [employer] Music Teacher:None The exam and treatment you received in the Emergency Department were for an urgent problem and are not intended as complete care. It is important that you follow up with a doctor, nurse practitioner, or physician?s insurance claims assistant for ongoing care. If your symptoms [...] Follow-up Instructions: With: Address: When: Mark Pitts [address] [place] [address] Business (1) In 3 days In the event that this physician does not participate in your insurance network, please consult with your insurance company to find a nearby participating provider. Patient Education Materials: A MESSAGE TO ALL PATIENTS REGARDING OPIOIDS PRESCRIPTION OPIOIDS: WHAT YOU NEED TO KNOW Prescription opioids can be used to help relieve aoduwwkw-mo-rbbuma pain and are often prescribed following a [...] be struggling with addiction, tell your health senior care specialist and ask for guidance or call [facility]?S National Helpline at 9-242-073-XZGD. r Source: [place] Department of Health and Human Services/Adeline (more content not included)... [facility] Registrationon 12-27-2022 Registration [id number]#1. 00CD:127 [facility] Consenton 12-26-2022 Consent [id number]# 1.00CD:127 [facility] Registrationon 12-26-2022 Registration [id number]# 1.00CD:127 [facility] Consent for Treatmenton 12-08 Consent for Treatment [id number] .00CD:127 [facility] Discharge Instructionson Discharge Instructions [id number]#1 .00CD:127 [facility] ED Clinical Summaryon 2022 ED Clinical Summary [place] [address] ED Clinical Summary Person Information Name: RJ ELENA [place] Age: 32 Years : 1990 Sex: Female Language: Citizen [place] PCP: Mark Pitts DO Marital Status: Single Phone: [phone] Visit Id: Visit Reason: Foot pain-swelling; ROLLED [...] 14:54:11 12/21/2022 14:54:11 12/21/2022 14:54:11 ADDRESS: [address] [place] [address] [address] [facility] [id number] PHYS DOC NOTES: MEDICAL INFORMATION: Prescriptions Given: [...] Ankle Sprain, Phase I Rehab; Ankle Sprain, Dznb-np-Tazq Follow up: With: Address: When: Mark Pitts [address] [place], [place] [id number] Business (1) In 3 days 12/24/2022 Comments: Follow-up with your primary care provider in 3 to 5 days. If symptoms worsen, do not improve, or new symptoms arise please report back to emergency department for further evaluation. DIAGNOSIS: Left ankle sprain; Sprain of left foot Normal [facility] ED Note-Physicianon 12-22-19 ED Note-Physician Basic Information [...] and Complexity of Problems Differential Diagnosis: [] [facility] Data External documents reviewed: [] My EKG [...] House In 3 days 12/24/2022 EDT [address] [id number] Business (1) Additional Instructions: Follow-up with your primary care provider in 3 to 5 days. If symptoms worsen, do not improve, or new symptoms arise please report back to emergency department for further evaluation. Patient Education Foot Sprain Elastic Bandage and RICE Therapy Ankle Sprain, Phase II Rehab Ankle Sprain, Phase I Rehab Ankle Sprain, Rupf-mk-Ivqt Attestation Patient seen and evaluated by the physician insurance claims assistant. Attending physician was present in the emergency department and supervised care. This visit was performed by both the physician and an APC. I performed all aspects of the MDM as documented. This report was transcribed using voice recognition software. Every effort was made to ensure accuracy, however, inadvertent (more content not included)... Normal [facility] Comment on above: Result Comment: Elec tronically [...] on your foot. General instructions ? Take fjjy-azx-whalxaj and prescription medicines only as told by your health care provider. ? When you can walk without pain, wear supportive shoes t (more content not included)... Normal [facility] ED Patient Summaryon 023 ED Patient Summary [place] [id number] Patient Discharge Instructions Person Information Name: RJ ELENA Age: 32 Years [facility]: [id number] Arrival Date: 12/21/2022 13:23:04 Discharge Diagnosis: Left ankle sprain; Sprain of left foot Primary Care Physician: Mark Pitts DO Provider Information Primary Provider: Charlie Rubalcava DO [employer] Teacher:None The exam and treatment you received in the Emergency Department were for an urgent problem and are not intended as complete care. It is important that you follow up with a doctor, nurse practitioner, or physician?s insurance claims assistant for ongoing care. If your symptoms [...] Follow-up Instructions: With: Address: When: Mark Pitts [address] [place], [place] [phone] Business (1) In 3 days 12/24/2022 Comments: [...] Ankle Sprain, Phase I Rehab; Ankle Sprain, Qpwc-kl-Kytp A MESSAGE TO ALL PATIENTS REGARDING OPIOIDS PRESCRIPTION OPIOIDS: WHAT YOU NEED TO KNOW Prescription opioids can be used to help relieve csjbwgqc-fh-mduovn pain and are often prescribed following a [...] Drug Administrati (more content not included)... Normal [facility] XR Ankle 3+ Views Lefton XR Ankle [...] mGy = . DAP = . Normal [facility] XR Foot 3+ Views Lefton 12-08 XR Foot 3+ Views Left Exam Date/Time: 12/21/2022 14:08 EDT Reason for Exam: Pain, Traumatic Report IMPRESSION: NEGATIVE LEFT FOOT. CLINICAL HISTORY: Pain, Traumatic COMPARISON: None available. FINDINGS: AP, lateral and oblique views of the left foot demonstrate no evidence of a fracture, dislocation, bone or joint abnormality. There is a small plantar calcaneal spur. Ordering Provider: Lody Lange FINAL REPORT Dictated: 12/21/2022 2:10 pm Amol Venegas MD, V. Signed (Electronic Signature): 12/21/2022 2:10 pm Signed by: Amol Venegas MD, V. Transcribed by: ESTEVAN Technologist: ORB Technical Comments Radiation Dose: Ka,r in mGy = . DAP = . Normal [facility] Registrationon 12-16-2022 Registration [id number]# 1.00CD:127 Normal [facility] Consenton 12-15-2022 Consent [id number]# 1.00CD:127 [facility] Coding Summary.on 09-06-2022 Coding Summary. CD:[id number] G h0bWw+PGhlYWQ+HZ7NNNE zP79tjMHrqO9GN3bEYJ1Z RXYSUXOXFI0DNB7rhAA4B CqaR3QtszAq SenlqXFkRR74CHi4YVT3e PrmDTohkI0kqQSrK7b6Wt YkRC76rV31STtsRALjJhW 3LjZpbjsgbWFy F1bbPoZerFNnOqz+PHRhY mxlIHdpZHRoPScxMDAlJy AqxBkcNV5uWq6sJWHtNON vbGxhcHNlOiBj u9fdFLCnRZzsSH2reYssR 4CjwGT3KMAml4u6Tm54aP I+QNNoNZW0uRhnOSbhn49 4LgWan8dqRME6 jZUvHXqvGVO2R51cu7R4H OKhTRElVRX9wSK5kH9jfE avhcmjG1NgiXQbXwX2TQM 8oWYjhH6zsYyb kslavP5yHjk+N62HNN3LB FPHNB3MYpj6L1NrEmbvlQ I+EX18VYGcSR01cFYveZS ts2rjgVj4FnUr MAFpIHS2mXosRPvpt1AfH XOwE74nsUOny4E1WBDyeW dqdCWfWyUfeDJ6yQ9hPRr awgfxb0yidkdj Nmpfy6mlfb72yE50W44eX CspIAOxMGS1TAQuBPPudF buuf4rnY2cAz6+GNztq2a jm5sqhBe8QlEn OEFtebRpaSduUSZ0f7ZjF n30G4ZbhLoip0YqBlf4bx 65yTEkx1I3zPB9KIppYPK wfV3nCKxkKvX4 IUBvUmKbtJ68fWMnGJwrK x2jpJpcsDeoDU6dRKAtoo deYJAtiO1dBEHzsDIhuKs vJN0dUOHzbsou h050PxZoERY3MJGokEKhD 2CokA6dYoTpZFDlWFKjR2 NjzGIkBRaxX562HKxxJiO 2POWicaJsZ0Pd FOFyfYdxFrF0n8H7Vu5Gf 7YrpwylSOX5XGpsXBWpPk P0NyWiBgK2B3HoVgg5NTS ajItcKZ3fL4Gw IDTengcorlkqkBH7XTLjU JDwbD94rQWoECqiCf0gk0 S0i198JREaUFCkkG26Cw6 udDogMTBwdCBU vH3zuttkg8msrxuoWeNiB TExTSm3PVz6DEVhhRncFl EcZAR4JbC1KBQ7rEXonF2 mvXvptypckM0q Oyc+D71vmT1iTWI5BWE6t ehtVPOcwvTdVF48KO91N2 RyPjwvdGFibGU+PGRpdiB gzImkLF1wTuAt r3mwr6FoIFmiL9BeLSUuQ NsjLej6OUVbQUK8kHP5vX 7rEUJhGFbxp8B8bUG7B8Z jgeGwal6kz5zy KPTqZJbiX06zoFGqj6S2S HJumOV1TGSxqSjxHxUghY 93Oyc+QLTahFycv1XmWlr zy2fjv9djdJq2 LcKrNWPisxUebJsqQFK5e 7LsGb84L33zRWauLESoPY MfTLXzHSHjlYuqet5emZ0 wIi8+PGNvbCB3 zFK9pY7dLGRqQuZ1LWyxU 092XuAisSQxChpbb4cuy3 nakLj7ReRpBQKfvwQhmMx wFOO5n2WaOf15 G35gSWgxNUAfFMOiEBQpB EEmeXreqq5eaO8xXf2+PC 2kc2ozkh30rW12nEC+PHR gUMW2nSdbSLlx NOKavL4pPCtpOtA7BYLuN mEfcK24uNRqMVkuUw1gdH jloYckZU8oEVDtunplq50 5ClJpk1uaOIWa iBTkPQkrUBE1I27yq0K7H FEmSCUpWEQ9dYO9tY8rgM lnbjogbGVmdDsgdmVydGl tIFgjNIfcQ882 IHRvcDsnPlBhdGllbnQgT qGrVNb2T6ElEbt7TNMnmV plVR2eaHVkACdpEq9tqDr elDoxFD2aXGLw kmoow168KeUox8jkJIWmd POiSGyaIQK9H07ht3X6HD ZpKCZtWOB1xSI4cQ3zlEw nbjogbGVmdDsg geNxlYjcEDbqZQpkB148U HRvcDsnPkJpcnRoIERhdG B8ZI95ZR98aCIrr5H2aUB 6V2CpNNQlgysy zbfthFQ3EBWeKYZqhS60P r4faRolFc8aNQWhTIZ9DX RdqGGoA7SmyD5nGdJtVAS bLGTqY4XxbYRs EJgsM915LHddLiU6ZBAvu mJiL9PoPDGnvRjbPoX7e5 H9Ul9VY9X7MD43IS25oPX hv0T1iXN0I8Kf FBDkxfcvjyxplDU2MEHfH JGdnH02Fs9ccQwpIu7qPC QbIPR6SLHgfBJuZ6JuoS4 yOiAjMDAwMDAw L7IeuGXiCQegA317STjmV nF3KECycjSwX7IpNMKyqW ffMtG2u7G9Fu0WJTw6SB7 6LG12jKHxd6C6 wVM7K0LrMTMosmbuqsnqa BN3WAVuEECeeI31Ls7lxJ cfZj2sTCYfSFM6ENUuuAL vF2BwmG2sWuIx QBDeSWEsY1SwjFVpLIsyB 858KWzcBcN4UWYsfqXsS8 OqYAAycZibOzH4i4V1Vz6 ROAWwPP74AJX8 wQS5WS00HZ52Y8UyWsqqf GFibGU+PHRhYmxlIHdpZH RoPScxMDAlJyBzdHlsZT0 dZl2dXVAbIAIg aLsygBXyQaYzi5jbONTjX TedMW0yjHzxS0OgsHN8VK Poy6h6Vw91J12oK6NukPQ +PVShgCF0rJC7 bP4dLhYpCbD4BIndB351H fJzvKRzFbewo4eib6cabZ k5PfD4QDMnzdQciHvqVFG 5x7ZtMj58Q50m IHdpZHRoPSIxNSUiIHZhb Jwxcq3liJ6zWr2+PGNvbC V6cIV8iB8jUfVbJaS4FWg eZ606MgLmvOFz Bnzlf4nrn2mheEw5BkVeM CHcneOclGdwDOQ9p9McFh 48I9TtyCrlq4PoCtx2xj3 7tJVfm3W7dIE6 Z4LcBQTnalaggKHzvAryN P9fQSSnxjydXWRmiT0uZE LpL4d6GlFsCoR4KBbeV5N pwpB3MMNfdJGo AVfcZEB9G38bd6I3LDOiO ORbEJX0jMF4aL5zvBrpeh ogbGVmdDsgdmVydGljYWw aESmsL921AYYh nGfzGJNfwD6aGSBlhXZxs KjwRX4gYQRkibvhHjSCFI ZNESlsSKVOU7RLDQdLKZN gRzwvdGQ+PHRk NHI2tNwhQNabXYLksE5lH GYwJ7w9OyTnHbT6GOfeK3 EzSLNzelvcSz73fJ8qQlV zUuZ5VMisQ9Jh idV4UFMxgYIrQNzpYEH7D 51af4U1FBTiTDFvOUD9aD K3kC8ytKbqdwbdmPQbcFj gdmVydGljYWwt JZfoX685RLDxuUcfPkQhY mZ1IoV2YVO5A8RlJzx2FT MjwQfdMM0unBYfPGixXo2 qlLyovChqFR8y YRTizupaSTUloY9hEQFvl NAwdTpqHB5nOBPsqobem8 88ZsGoSAW5RYQbrEZmP4W zrC4nKeBgAXEl FJHzQ0CfoSJlEGrwY848W TafSsY7FLVdplFhK1MuJF JozOrcFcD5d0Y5Jx2lTfY ZZWFyczwvdGQ+ HGVmESZ1dMqvVSjaJPYvu W5uUBNhW8p0HhBvSoO8VD rfJ9EgZXPcpmheQu46oN8 uAnIyCxJ1FUid V1CfqmH4CDBdyUXgEOnhJ PF5K87ae2X5PXZdRTWzED D5nWR7wL7mvZhokvwwnUA mdDsgdmVydGlj APnyABzqO353HWVjjPnrB kZlbWFsZTwvdGQ+PHRkIH A8iWbmJExgEEIzhQ3aOEU pH9c6YoQdWuK3 YSymP6UhXFKnweutYb10f B9iQcYtFjU8NRpvF8Zjim F9MQJthRLvNVsyGMW9U55 qe3R8QLShKQWe ORS3qEN1eO6crCfrkhflh GVmdDsgdmVydGljYWwtYW ciB962ZRJioHatLjCqSNS oFM8liPcfqFX+ JY07qy87Y2KkSzdrLic8S DIoHFN7oAI3fM8fZFEmVI qth4L0uJX5M8YewvKbhw8 pz1dkMIDcPJpo G79ctKOzn3G1IJVbdXR1V KJqsHkqGvDacF98Ddh+PG SagNwle5NoHhhnf8dap6i wzIw1FkCuVQDs ewQrhUnjZTY5m7XnSx27K 29sIHdpZHRoPSIzMCUiIH AksRhjya9ynS3nSa6+PGN ujWE5rOO5rS1r EwYnLmB7PTefH547TrHcv AXwGdhph2wfn2xbkNx5Mq NtSDZyjtYjwLhfGOB7x2S aXi89N8LavLpj q7BiFjs3pq31tWSaf1B4z QU5H4RcIRCnfdfmfRLwkF ikCO7eEYXkuayjOKLgcG4 aFHJqW2u7RnRy BbN5MAswW3PgsbC6BRBjj BFmNVZwuDJHjK5plrmez3 soevuoLfGwNMNfTJt6BZz 0LWFsaWduOiBs ENT1PtW3EJB4pDXzgC9ud MymncwfjQ0uDpw+UGh5c2 kytJQoPT1jpHX1HK53ER8 4iDJcq7J0nLQ2 F9ArIIRydzzedaxoeNY7H TZpGYLozJ39Qy4zwTziQb 1kLWBtUCX8DMZalGStM4E bhR9yNbJvTCNu FKOdD1TfsBRnPDmuL091J SffMtE6ORQezzDcK9PlZY CxzGtbJcC0k0B3Lz3DHZ7 8EF66VI33hYRk s6A2jOD5M1KfWJHfqsdkd fehtVY3CCQoJRYuiT77Dn 2zwCehFl7aMZCmRUM8TWL ipMMtU1DklS2e PbMjFDGlHWXkX0AneXAzW WyzW382VEhtDdO8XUNemf PoC1PiZAFusVmqWaB0c7F 5Aj9AMk27PG99 QT76jSBmv4J7tFA0X3EjF YRdbuzilwgjpED3ZQUdYH FxlN13Uk3ziAaqFp3qSZU sOAC7TCOgtWCi S7LfzA0mVsMkTVChZOWgG 9VrhFYxRWtaS805UQugAv I8VGPwjzGmQ4TuDUAvvEk cTdL2d8X8Nf5V DVzzaap7O0UvHcrkzZB+P T66MDZoDK19rDYyxDCcs2 hyzMe5ZvRfONEaNZE0aYt mLPxan5ZoNZHn Y29s (more content not included)... Normal [facility] Coding Summary. CD:[id number] G h0bWw+PGhlYWQ+MK3WBMQ jJ04csJTfpO6MJ9rLNG4L FHWVIFOMOL2CMY8iuCO9O VxcD1QbrlZe MtlfuJKgRX74HFf2PRS1i UwkHIhrkO1bhPFfW6n1Qd ZcLI88qI02BJguUABsOnZ 3LjZpbjsgbWFy B8kdXxRtqGLkWxs+PHRhY mxlIHdpZHRoPScxMDAlJy LseKejEX2nHo1eMVQpRQR vbGxhcHNlOiBj j6liUCHkWMmrWB0lrZwmN 1SphCN2CFMqz9j9Bs97yE I+ZGHtCJX5nMgcOUjkd54 7YqAfe5atZZJ1 xOVgMAegHOL8T52ir5F9S JGnKQQeQFV9tWI9aB2pgX xkkbvsH7FezMJyHeX8YHA 1xEEbaP4bkPet mmghvU9oFiz+J02RWO2YM LIVBL4IWrd1S5CvQhwsnU I+TJ93FEJuAY95kQVxxQK hc7crqGo6FjMm UISiXPP1dEllVSlbu0BnX PZjE50guDSvq7P8DRZmqK hdzFRaAoDvzIX8gM0qHJy pypzqk7kekxfd Octiv8xxeu75pF29K18bV QowIQBsOJC7YOBmXXWtbV vmmc0btQ6hYb5+UWeni8v gk4oroQw7IeMj JLGpapXelCejUJV9a7DoZ e50M4PtnLfzz0ZnLqh5na 43aLFbe7K2cJL6WVieXGU hcN1fLOxpOhE9 HZNuDlVdvM17pBVmPXqnY p2qqXbhlYwwVT1zAEQdod riFIEdbM0hYNDfeYUlcTc jOY7wTFSzottf h127TaYdMXW3AALoxGXeX 2QzcJ7rWfMjIRXkTBSaQ8 LohTCvSYfwQ697EFwxHdC 8JIJphcOfR2Ep VARzxFtjEnA2i0B7Qg5Lo 4TxjqmaZHQ0PDfqUMNhEt I7TiSeNlK3D4HwEdd4TLP gnFfjZT2cZ7Nh AWFmfnorqmdkhCH7AIDrD KNctV57tHDxOBpjAh4fs7 C2e609DXOyNDZugW63Lv0 udDogMTBwdCBU vO8xiocac6iirmndWiGgL KMgXOr8ZKc4RMJcjQtzWc GdOLN8QzL8QDQ0oVOjgV7 vgOinunoerI1g Oyc+E24xgF4jDHA7ESY1v ceeWCDfkhUaKQ47LZ49B2 RyPjwvdGFibGU+PGRpdiB vaDnmXT5oIaRj u4snc2MiJCeiC9YuIGYrZ DwbEvz9OOLvOEB7yGS5xE 4rJUZiNCips4J8jZO9V6R gqyMuvx7ve0as AXAqPVyeX63hkKZmj7W7O FXivVO1SKMdsDmxMuKpiV 93Oyc+OABfhFjvm7DdCca xe2hjq4mbwDc4 EiMuJLDkgxHalInmQMF3u 9JjGp25F43xGDnhKVQyZL TvFKWmKQAocXplkn4nzK8 wIi8+PGNvbCB3 nAU7kA9kUSQiUrN8UJguZ 375TsMpcADgNsbhf9aai9 wmhAu7JkMyGXIufqWfsBp xYSF6k3FdMc52 N39aOSyqKHQsXQYcKHClP BAkdBlxww8gpE8aDo4+PC 3rd5ovsg88xF89yNG+PHR dUVU0hMebVJxo BUYdzA8zAMpaLgE6HDOzR gLgyD54pSUoGGamQk3ixZ cknVovFL6kJSIinbfmc50 6AcFnf2ufEGCn lRHmDDjcLMH5K28az4J9E TCpTGUyUBB8oXD0fM3vlH lnbjogbGVmdDsgdmVydGl xYUzgEOsbR987 IHRvcDsnPlBhdGllbnQgT bHdLHh5P9GsYxd7PXKfkS tfMZ2otLHoBCxsXf2sqJa sbVcnAE9uOPRs gkryw280QnMsj2qnOFMfm JZoIEmsFJY3K49hl8N8MT UwEHRjIGH5sDM8qL1ovUs nbjogbGVmdDsg ujNruSzcVHvaFIlbQ392A HRvcDsnPkJpcnRoIERhdG H7RO70VV24oDPor0P5sDP 2P3JdXSJzcukn buhcbTG0TVBqHVAtyO71A b1uqPmcHj9kJRNdYXA8BD LeeVRwJ1KmsR4fXwIcSUR rIQFfR9MgkGCu PXqiX605SBjaWeN6QEAui oBpZ0JjFSLkfDbtOmU9e6 Q9Nv2SI2A1RC21GS65sDZ ed0K1uBM5M5Re RDKjhvcbhsdkmVN4SLAaU TOakJ88Yg0agOhmQs2hIP RmKKW3HRLvhUCqX1FsbU0 yOiAjMDAwMDAw F9HbnLRmISllE849MFhqM pG1VFEjixJiM1TyBQLahL ruQdT4l9B6We4JIXl1CM2 0ND11eMTnd9U1 uIK7B3IbGCUryivqrgeey YC4IYTaYBCuuH09Zs0qhD rjEm8sISBgSFJ8RHDunLT cR3HrbJ5uCmTt NYZaABVoV2VomDTfGNnjR 279QVcpArM7YYHdchHeX3 KsJMDihQfcHmB1k9T8Qc1 MZXVbNX30ZMF2 mMZ5LA78IZ28R6OoIagjc GFibGU+PHRhYmxlIHdpZH RoPScxMDAlJyBzdHlsZT0 bDe7qTRFcIHPb zFlocCSjRdGgt2cdMKHfV FfgPW0ndRaiO6AgmUM8GQ Yvj8v9Hb04K33cN5BeuSA +CHFuoKI6nVC8 oU8qMyAdZkD7ROhhB532Z qQdlQNpQuprt3pzh4refZ n5GoP9HHOpehEuvXgvXHS 8b4WxRs95E21u IHdpZHRoPSIxNSUiIHZhb Ravrj5zaL3qAt6+PGNvbC Y4yRS2aU3oRuRpGtN2TOu wL105DzJiiQHe Dicbe1uws5qebCk9TxXyB VMdqbTkmAenGSG5y9VfBy 63H7YjoDjjj8DePaa8pt9 9fXUuj7L1zWD5 E0UuIPComqwnbPZbxRmpT V1uAKSsmwpeDYFzjP4bXU ZsL1o9McVnQcG6ISuwT0O atgZ3NXVbpAYe VJegXAR8G12ty2T9EVUnB YYeBXH0lED8iH2rxLqnwa ogbGVmdDsgdmVydGljYWw iYIxwH712RHRa vEqjMWAxzM1lECVwtFQmv IlwCS8aPEXiviehMwLSHR YZLSpkSHGZU2CKPSbNNYB gRzwvdGQ+PHRk DJC0pJejHZmbQXOcyM6mM DGcL4e9JbReLuC3WLqzJ2 UkCRTgxjnjCc13rG4mEyG aLyB2VSugQ9Iu kdX1IZZioIJnZTygVQR6I 80fp5Q4QLOhYNVuGPK2hX W0dP9mcYysfncxlGTghFn gdmVydGljYWwt BKliF432GFVyvJdyRhIeP nH0SgE3MFN5V6TiWuo4NN FpeIuiJY9vdOPdZSyxHr3 bdOwvdYxhVU4c MSAzqlkuNWKohV9yETPyq MHvoLamPX5sRPStqsbpu6 32LmPhBSS0UZAdfXMcD1D wnF5vJzDrNNEe KHOqM5XdaLDlVTviG077T WovVnU6GVJtxsPdN1ZgLQ FlsQcuToZ5a5Z9Ki3jTjZ ZZWFyczwvdGQ+ NTSgTIF3eCujDOpxPGOmw V8cBMJbE5d9XfQyMbY4AC ubD4OoQOHieogoTj14zC9 fFpDnNmX7LClf R9KulrZ4KJDesULtEZejD PQ7L73bz2F0IVDhFDOaKW F4hXB2rQ2fwRqrodgmoKW mdDsgdmVydGlj PCteNDpeV574XJFkqHnmW kZlbWFsZTwvdGQ+PHRkIH S8aKuyXXzcUXPpdK3dASB qA2y3YmZwKzY5 ZJbbH7AtKNAkkuqyKo49g R6zEvLeHlZ5QLyfS6Eddj R2DPKiyHRvRYmoXYR6N91 dd3S1HTCvUIPa HNG1wCE1iI8giZeweowot GVmdDsgdmVydGljYWwtYW ptY653XUWkrDbfPyPyFOT vFC6qxWxifBV+ SR80th17B3DpOsbdKuj8M HDyXXC7lIS1pI6hGYOjTO luh8B0mUA9T7CurhPepy6 wj5ljDUKhJXqc V66yzHVth5A5GOOskGU7O QNnjAgnAxUjtZ51Hkn+PG IoeSice8FaBokib4vwz6b vwQb8PoVeYMBq ifUcnVbeKBU4g7LqLk28B 29sIHdpZHRoPSIzMCUiIH UbzPxtdy9zsA7tBo7+PGN quMN4uMT6fW1k LqYtIdH2URczN176SfEam WAhAxuwd7kix7texQy4Hw JmJWZeykThiHkoUMK7p4X qZx04Y3NrvGht p3IcLgh9un03pEIen5D6l IL1M5PbHDWclquiyGChmZ aaKO5tNQYxmtanYKMmpP5 pPYWbU8f5ByHr HqM3UXnlJ7SsmhM6VCPxc ANwLNArlZPIrW1cklhzc1 oxmlmrAxWwZQVyKMu4HSq 0LWFsaWduOiBs JPC4ZmU9BMF3nKJyrS3az XcfjxublD8oRvw+UGh5c2 aqzDQcBY7luCI0QD47ZR9 9eDUok4G2qHR6 V4LwBXOmsdsnvljssBZ5Y VMyCZWtyF84Bl1tgNdjUn 7vOGHlNVG9ZAFeiVTmD4J sgA3lGvMkEOFp VBHiT5HhuYXoQIoaD780V CpeKsJ5ZQMghtMsO0RfJR IqgFozOdJ4f1R5Du1BGZ9 5QZ22KE10vJUy j3L2sXG3E4WoRMDhskwez ukqzWP0SGYdVOCxnR04Lb 0kiWnwKn1hKARyGPF1CIX ejWYcM3UqlG7w BuFcYWVuZUUyN6SgrOWeB LhzS375FYuhFmD0JLXasw DkV7PwEYDsoCrzGuS4d7W 2Hl7HNp69MS12 VD34gDMnd5G7qKL8A6SxY IKrjswczcsljMH3SDZmQQ TzaM81Yd3gaDuxRs6yDAY wBQH3PERclVJy T5AsdO9aSaOcACPcBLCdQ 8ImmCScTLzuX657OPplEm Z1PWCtmeQdM3RqMZMluYy dZmB8n8Y3Gf3P DZojuuq1Z3BjJbunnFM+P U17UUEbWL64hHMyqPJai7 gckUe9GrAvSHMhWID8jWa hWHmwh4JvQECe Y29s (more content not included)... Normal [facility] Discharge Instructionson Discharge Instructions [id number]# 1.00CD:127 Normal [facility] ED Clinical Summaryon 2022 ED Clinical Summary [place] [id number] ED Clinical Summary Person Information Name: RJ ELENA Nicky Calista/[facility] Age: 32 Years : 1990 Sex: Female Language: Citizen Of [place] PCP: Mark Pitts DO Marital Status: Single Phone: [phone] Visit Id: Visit Reason: Rash; Allergic reaction [...] 22:58:39 09/05/2022 22:58:39 09/05/2022 22:58:39 ADDRESS: [address] [place] [address] [address] [facility] [id number] PHYS DOC NOTES: MEDICAL INFORMATION: Prescriptions Given: Medications to Continue Taking That Have Changed [facility], [address] [place], [place] [id number], [phone] START: predniSONE (predniSONE 20 mg Tab) 3 [...] Refills: 0. PATIENT EDUCATION INFORMATION: Instructions: Nate, Tyox-dk-Tlsy Follow up: With: Address: When: KATJA MCGINNIS [address] [place] [id number] Business (1) In 3 days 09/08/2022 Comments: Follow-up for further evaluation of your urticarial rashes and reactions. With: Address: When: [address] [address] Business (1) In 3 days DIAGNOSIS: Allergic reaction; Urticaria Normal [facility] ED Note-Physicianon 09-06-19 ED Note-Physician Basic Information [...] that she has never follow-up with an ice guard inspector before. Denies any chest pain. Denies any [...] and Complexity of Problems Differential Diagnosis: [] [facility] Data External documents reviewed: [] My EKG [...] I do want her to see her ice guard inspector. Discussed return precautions. Follow-up with your primary [...] Once, # 1 kit(s), Refills(s) 1, Pharmacy: [facility] [...] Being allergic to foods such as: ? [place] fruits. ? Milk. ? Eggs. ? Peanuts. [...] at home: Medicines ? Take or apply qmcv-egv-kfnhpki and prescription medicines only as told by [...] causes your hives. ? Take and apply sgsm-qlf-xzoeomq and prescription medicines only as told by [...] Reviewed: 01/09/2019 Elsevier Patient Education ? 2019 [employer]. Normal [facility] ED Patient Summaryon 023 ED Patient Summary [address] [address] Patient Discharge Instructions Person Information Name: RJ ELENA Age: 32 Years Arrival Date: 09/05/2022 21:00:52 Discharge Diagnosis: Allergic reaction; Urticaria Primary Care Physician: aMrk Pitts DO Provider Information Primary Provider: Quita Clark DO [employer] Music Teacher:None The exam and treatment you received in the Emergency Department were for an urgent problem and are not intended as complete care. It is important that you follow up with a doctor, nurse practitioner, or physician?s insurance claims assistant for ongoing care. If your symptoms [...] With: Address: When: KATJA MCGINNIS [address] [place] [address] Business (1) In 3 days 09/08/2022 Comments: Follow-up for further evaluation of your urticarial rashes and reactions. With: Address: When: Mark Pitts [address] [place] [address] Business (1) In 3 days In the event that this physician does not participate in your insurance network, please consult with your insurance company to find a nearby participating provider. Patient Education Materials: Hives, Kgzk-ir-Rdxk A MESSAGE TO ALL PATIENTS REGARDING OPIOIDS PRESCRIPTION OPIOIDS: WHAT YOU NEED TO KNOW Prescription opioids can be used to help relieve tuphmqas-lc-anmtmw pain and are often prescribed following a [...] of opioid (more content not included)... Normal [facility] Monitor Recordon 09-06-2022 Monitor Record [id number]# 1.00CD:127 [facility] Consent for Treatmenton 08-11 Consent for Treatment [id number] .00CD:127 [facility] Discharge Instructionson Discharge Instructions [id number]# 1.00CD:127 [facility] ED Clinical Summaryon 2022 ED Clinical Summary [place] [id number] ED Clinical Summary Person Information Name: RJ ELENA Calista/[facility] Age: 32 Years : 1990 Sex: Female Language: Citizen [place] PCP: Mark Pitts DO Marital Status: Single Phone: [phone] MRN: [id number] Visit Id: Visit Reason: Cough; [...] 14:23:43 09/04/2022 14:23:43 09/04/2022 14:23:43 ADDRESS: [address] [place] [address] [address] [facility] [id number] PHYS DOC NOTES: MEDICAL INFORMATION: Prescriptions Given: New Medications [facility], [address] [place], [place] [id number], [phone] brompheniramine/dextr omethorphan/PSE (Bromfed DM oral syrup) 5 [...] Infection, Adult Follow up: With: Address: When: [address] [address] Business (1) In 3 days 09/07/2022 Comments: Return to the emergency room if your symptoms get worse or any new symptoms DIAGNOSIS: 1:Upper respiratory infection Normal [facility] ED Note-Physicianon 09-04-19 ED Note-Physician Basic Information [...] and Complexity of Problems Differential Diagnosis: [] [facility] Data External documents reviewed: [] My EKG [...] for cold symptoms, 200 mL, Refill(s) 0, [facility], 160, cm, 09/04/22 13:15:00 EST, Height/Length Dosing, 85.6, kg, 09/04/22 13:15:00 EST, Weight Dosing Influenza A&B Ag Rapid COVID Antigen [place] Disposition Plan Patient Discharge Condition Stable Discharge Disposition Discharged home Discharge Prescription List Prescriptions Bromfed DM oral syrup, 5 mL, Oral, QID, PRN Follow-up With When Contact Information Mark Pitts In 3 days 09/07/[address] [place] [address] [facility] (1) Additional Instructions: Return to [...] Current, 03/08/2019 (more content not included)... Normal [facility] Comment on above: Result Comment: Elec tronically [...] young or very old. ? It is pk or winter. ? You have close contact [...] to help relieve symptoms, such as: ? Ymbk-tku-ssxplff cold medicines. ? Cough suppressants. Coughing is [...] other clear broths. General instructions ? Take ybyp-gqq-djtdtqm and prescription medicines only as told by [...] and water are not available, use hand buyer internship. ? Avoid touching your mouth, face, eyes, [...] common infecti (more content not included)... Normal [facility] ED Patient Summaryon 023 ED Patient Summary [place] [address] Patient Discharge Instructions Person Information Name: RJ ELENA Age: 32 Years Arrival Date: 09/04/2022 12:56:58 Discharge Diagnosis: 1:Upper respiratory infection Primary Care Physician: Mark Pitts DO Provider Information Primary Provider: Solo Kimble M.D. [employer] Music Teacher:None The exam and treatment you received in the Emergency Department were for an urgent problem and are not intended as complete care. It is important that you follow up with a doctor, nurse practitioner, or physician?s insurance claims assistant for ongoing care. If your symptoms [...] Instructions: With: Address: When: Mark Pitts [address] [place] [address] [place] (1) In 3 days 09/07/2022 Comments: Return [...] opioids can be used to help relieve ysvcvveu-ei-sgmuqb pain and are often prescribed following a [...] care p (more content not included)... Normal [facility] Influenza A&B Agon 3 Influenzae A Ag Negative Normal Negative [facility] Comment on above: Performed By: #### 2 [id number] #### [facility] [address] [place] [address] Influenzae B Ag Negative Normal Negative [facility] Comment on above: Result Comment: Test sensitivity and specificity vary for age group, specimen type, antigen types, and prevalence of disease. Test results must be evaluated in conjunction with other clinical data available to the physician. Individuals who received nasally administered Influenza A vaccine may have positive test results up to 3 days after vaccination. Performed By: #### 2 [id number], [id number] #### [facility] [address] [place] [address] Prescriptions/Work Noteson 0 09-04-2022 Prescriptions/Work Notes [id number]# 1.00CD:127 Normal [facility] Rapid COVID Antigen ([facility])on 09-04-2022 Rapid COV Int NEG Ctl Pass Normal [facility] Comment on above: Performed By: #### 2 [id number], [id number] ####[facility] [address] [place] [address] Rapid COV Int POS Ctl Pass Normal [facility] Comment on above: Performed By: #### 2 [id number], [id number] ####[facility] [address] [place] [address] SARS-CoV+SARS-CoV-2 (COVID-19) Ag IA.rapid Ql (Resp) Not detected Normal Not Detected [facility] Comment on above: Result Comment: The Yellow Pages System for Rapid Detection of SARS-CoV-2 is [...] or revoked sooner. Performed By: #### 2 [id number], [id number] ####[place] [address] ADMITTED TO INTENSIVE CARE UNIT FOR CONDITION OF INTEREST:FIND:PT: NO Normal [facility] Comment on above: Performed By: #### 2 [id number], [id number] ####[place] [address] EMPLOYED IN A HEALTHCARE SETTING:FIND:PT: NO Normal [facility] Comment on above: Performed By: #### 2 [id number], [id number] ####[place] [address] FIRST TEST FOR CONDITION OF INTEREST:FIND:PT: Unknown Normal [facility] Comment on above: Performed By: #### 2 [id number], [id number] ####[place] [address] HAS SYMPTOMS RELATED TO CONDITION OF INTEREST:FIND:PT: YES Normal [facility] Comment on above: Performed By: #### 2 [id number], [id number] ####[place] [address] HOSPITALIZED FOR CONDITION OF INTEREST:FIND:PT: NO Normal [facility] Comment on above: Performed By: #### 2 [id number], [id number] ####[place] [address] STATUS:FIND:PT: Unknown Normal [facility] Comment on above: Performed By: #### 2 [id number], [id number] ####[address] [place] [address] RESIDES IN A CONGREGATE CARE SETTING:FIND:PT: NO Normal [facility] Comment on above: Performed By: #### 2 [id number], [id number] ####[facility] [address] [place] [address] Coding Summary.on 07-28-2022 Coding Summary. CD:[id number] G h0bWw+PGhlYWQ+VG1VEVQ pT83efUGliK3TL3dDWV1K CNHKWUCXFY9SXM7yoQV6L SoiJ4WonjQn DbfpjBAiMU79XUl5EEJ4z RycOYumaZ2qlIVpH3s8Ot JgPY37zJ59KCrtRKRlLnF 3LjZpbjsgbWFy P3ewQxKtaRCdPtp+PHRhY mxlIHdpZHRoPScxMDAlJy FzxAalGU4xRt6bWHYuQOE vbGxhcHNlOiBj f0lmVOLhDMtrRA7akQweC 6NnjTE3PDKga0c1Co47dT I+KRFoOYK6oDxjRQkvw45 9TjLtx3bzFEK5 vGJtYEcgXNJ2R63bs6B5B QUrUBJkSPB0nLQ7hP5uzH ktznkqQ5WepMZtXrE7CSH 6tDJdzI3fbTut igkwfV0kRlu+K02SFH6JV GZOAJ2WLpv2D5NbAerfcZ I+KQ76OKHfKQ27jIJpuVC nr8tmiIt8QpGz SMTxUBJ1aYnfVVdxb5YjR IPjN94bmCHje9D8KQSjuU uhcKTyMdBfcJZ0rJ4nINg orvhmz6ewhxqo Inqqv4txqy83jN30T71oS HywCJUbATR6FCUsQWXkeG alog9zvD0jHi4+TYjgn0k xb4mexNc5WgCa RDFhhyCywShcMNE3e3MvD a74D5OqkFlwv0JrBwj9mv 48gOVzn6I9dJE3GTcrLZQ cuH0eZAkjZbT5 VPGaDmYoyI21lEXiJAroW h1ptStwzBwzBY2uTYDini aoSKTdlX4bOQVtuBFryUv bPX0vCOWbkzox m038DfRaOQI9KSMnpHWxD 1QbnI4vKqWtVQEmWKNwO8 DaqAXaRHwdH584WOpcWrB 6KGJmaxXiN9Fn ATYzzXycFzB4s3A5Ss2Ke 1DlremsRJI5BUeiISKoFv Y5KwQlAkO4K0UmTld8AWT nhLbjKY5aI6Go TACrnkovcpaqfWW3TNOgY GDxnW15sODqEFdlPr2mb8 A8s952RMDlLCGexV30Dr6 udDogMTBwdCBU aJ3qfgytc1pkhqsdSiVxT XOmGPj4HGh6HNOxfOqjZi EpQHU4FfG0QAY6jFPcuO3 viGemblztpT6e Oyc+K25djQ6uPFW9PDO9l dtmYHLruvVjSM86HZ15I6 RyPjwvdGFibGU+PGRpdiB vcTikJA2iEpKd b8qau6TtKOdhU2SpHOIsB KxmFmu2CIIjUQR9wBK6lW 6iXAWdBZsju4S4aHL4F9V wbwEnbq6rc2kv BINhJOuyM14ohTCzm2B6U CQkjSI8FTOymEpoYrTlzG 93Oyc+ZVZelQxqm7YpBoq ja5otf2vdhAf6 BsDeWVYpcxCvzPdsVYX1w 2PnXf00P39oNEsaZXHdLL IcUSCfMEXsuSddix9huX1 wIi8+PGNvbCB3 xHK2tH1eGZCoTsL7RWxmV 844KyOgzBZePyied3mtg7 jsgMs0RcEqXKKznwUnpTw jKFZ5o5BrVq38 D44yALchNRJbNJVcGQGmB UEssAiugy0wzU2rUq3+PC 1kx9cqen19nV65cHG+PHR xSZM6fVtdHJus KDQzgW8fATyfHyI2RIDbK jMhlM10uFQqPGetSq2spH rauThkKR3rOZFqougdq18 7PkIxv0rkWBGu pUJrNOqvZOI7A64lo4G5D OVyIQKcRJI0oBN9lS4msP lnbjogbGVmdDsgdmVydGl oWDlxUWszB166 IHRvcDsnPlBhdGllbnQgT pDxHMq3D8GqPex0NUAhbX qmMT5ueAXvUHbyFh1kyJj hjMkfEB5gAZOv islpy546FpGlq2gqSWQwy QSrPNnkLSD7Y12xe4P3NK TjROEmSRB4nAU1hU7qzKl nbjogbGVmdDsg isHepKtkZInvGOteR397T HRvcDsnPkJpcnRoIERhdG K2NT57JR62sLWvg3W3pBO 7G0XnVUDmywdj autgbFH7ABKaORFvzD26X k3duHewYx6zSOVyBRM9HL DvmFNbX5MgkE2zFsEdHAE uNDSlL1GwnGWn HRmaU353MMhbWiR2NROea gErE2QgMQPspCxxPwH8h3 Y7Zf4ZT6Q6FQ99XQ92gHR dn8N0bRX4O3Mw LAAgajxixzdkaPM4TTVpW LVjnL64Cv0gtLknUj1eMV KeQEC0DUFxjXYbL6MwuT5 yOiAjMDAwMDAw Z8WljLHcDPicP160QQakE cH4SQWaxzTyJ1SyLVVwfJ agNxH5e4X5Tn4RWQy7XR0 3ZZ45wALuj4B2 lSK1E3MfTWSbnewgoarbf PI2HJTpMGVjiJ74Lb7uyP hjUw6qWMRsTST3QLSsvSB dF4UvpI8zJgBn OPQtXDLcE7FoxTBeEMfyA 488UCbhGwP4QKJseyIzN9 MtMMEzwCrrBdX0t3G6Zq9 TBSTbQR22JLK8 zKZ6NU22EY77Z1XfHixfz GFibGU+PHRhYmxlIHdpZH RoPScxMDAlJyBzdHlsZT0 eUl8nRTHqNCOj sJkhvSCgCqKac7adUYQeA NitVS0rwFzrH2NysCM1LL Fmh8q8Ol85O07fT2IljLV +MHOdbXV3dTG9 vU8eRfBaVvC5GGyjO325X uGuaAEcKkuhg4bsh6kpvV f0EvK4DIZvoaCguJgmEOM 8p8OkNf68P48p IHdpZHRoPSIxNSUiIHZhb Oyaow3qqZ5uUf0+PGNvbC P8cJE1gV1dEjJoRzP7BKt qP298KyTwqXSl Fslrs7trb0tknDt1SaQtW NDefzTjmRxzFUN2k7XtMr 85G3PweBuhb0RiWuf4hv0 7aWDvq6Z2hTH1 O3FlXSVtgccbuJIqjVmcG F8rWEDyyyxuDUPruO0vSP KpW4n6BiYkAuH1UErcG6L sbuB1FXMezPQw FUyaWNK7Q00vy8M1WYElW IPmMGA8bJF1aL9ysIegnh ogbGVmdDsgdmVydGljYWw pSYvvU987SHBt vMtiIBRjaS8bBWRnvAAim SdxHM7sDDHxqmftOvOTWK PRTJrlIPHZI5HPCBpITQF gRzwvdGQ+PHRk UWG1kIfxUNsjEJTssA6sJ GBnF1r2SpXoXvE0NDsgB9 YrFMNsnnvjLu63wD2bZxQ eJlL7EIecB6Ma qoB3UDBntMIfJEltAMD6N 14eg8A5ZNJrEKPwDKX1zB F7kJ1pwHewaitxuPWefQn gdmVydGljYWwt XTzhP143CJBblHriSwIaA tM4DdR9GCL1U0MwCtv4SB VxjKlcHK3pfDEkJLneDg5 rnUevcGluRP3n YFZatfxxDMPvnP8xZSUuk AXptYdhPC2cVTCftrbxt2 42KxYjNCA3ZFQwvWMbZ5Z gaV7uJyTuXZTw ZQBqF3MfmYSqEGhlO951R SzqNbE6IULqmmLiH5XbQS VczPpaEfK6v8R7Ln2gQlR ZZWFyczwvdGQ+ MYFxKPV1vHkfSKynMYCeu T5jGWYzG1c7YvSfWeN7AL obD7UnHKKykmzaDz13lW1 hAxEyIrS5VHzd N9XwczU9CYHdgZZyFBmbF CP0Q96zo6M6MWBzKWPaNS E1hWP5gJ9ngYdtaijrwQB mdDsgdmVydGlj UFekUKjnF031PCPrtGzoD kZlbWFsZTwvdGQ+PHRkIH W1xZkuFOvbQDPvyJ0dVIF fJ2k7HwCsBrF5 NHdbL4KuRZZzwjqvKa76f V3rRmVnRpB5URkxQ0Bcce R5PDIcoEWvOSwfWJC8O52 yp0R4ZKRuANOx GJC9fBG4fS6vjDjsvynyi GVmdDsgdmVydGljYWwtYW vmO408COQdeXsmAbCoCFY zLD9enYhcfDF+ GT71by54Z3WaOvllOyd9T FMoCAF9gQE8xJ7hLSYvMZ pjb5U6nTQ0J5AkxfUcqa0 wx1skIWXgIZgb W44wgBJcf8W1JVKjaWJ8N KLkmVcaAoVzhC51Jfq+PG PwnCfpn4GlIsszv2qce2f zlYu9AeKsDEHy siPhkAsiENQ1e1FeCp65L 29sIHdpZHRoPSIzMCUiIH IjiRonch9gfI6zPw8+PGN dgNM4tBC2yH8f DyFtJhF6ZLpgC286WiFbj BZnNnnww0kvm5igxCp4Tf YsNXQfpeKkdSrjHOC2y1U nNv04B9KdoVak m7EpJcp3am71qESxl9D7k MD0G8NmMJPxnskbdIIroK awOV6fMACygobuLLUhbP4 nCUOsD0a9XyEy IuH1KEmvG9FrhpM6BHBql EQvVZPvtFBRaM3jtxkbv6 vezzfzOiWcWHZnUBq2KCf 0LWFsaWduOiBs ZRS2LsA2NQU7oOPjzJ1zn EqdencwfP7cZlk+UGh5c2 godBZtXT2moLM8RO67ZN3 6nIAzw7Z1pUQ4 Y1UqDQZdckqdeblxlSZ6Q MQxSEBivB75Ul8rkNxwJo 5nIFVhRPV7GVNswVIuO7Q fnR2aFkKvRXPv IINnM6UehNHqIDwvD654M MnxHrP8OZChntQjI8BmQC KatJebWwW3s2N9Tq4FUI7 2NN52EL15mPKt w7Z9xHB1S2IsAJAvqkere zwalTP8RVWpJEAfhJ34Mj 3crUamIs4pSJHrAEN8YCH jxRUkY1LskD1t NwDyVLHzVYWcX1XnsSMrG GmqD498GOgpVnQ2LLKlvw VeA8SdJNOeuAytWqF1x1X 5Um1YZh08VV00 NL18dURnq2Y4pUF1T6EaZ DMjsvkxibrgiSW3QOVfLY PliA57Fq7yfHhtLk2eREN aCYB5HKJymPZp C1IynE9dXcHnANDoFPWtH 0RltHTcRQmcX431VPwlFx F7EDXnxrZtT5OnRBIeiSu mYaE4k1E0Zx3R DMtzbyq1J3WqYasslBG+P Q86CHXdWF23nAXsqBCso0 mmnYj9PmJeIJRbGHU8mZp sSOtoi4XqAXTx Y29s (more content not included)... Normal [facility] ED Note-Physicianon 07-28-19 ED Note-Physician Basic Information [...] My Ultrasound interpretation: [] Decision rules/scores evaluated: [place] ankle rule, cannot rule out based on [...] Mark Pitts In 3 days 07/30/[address] [place], [place] [id number] Business (1) Additional Instructions: Patient Education Elastic Bandage and RICE Therapy Ankle Sprain Attestation Patient seen and evaluated by the physician insurance claims assistant. Attending physician was present in the emergency department and supervised care. This visit was performed by both the physician and an APC. I performed all aspects of the MDM as documented. This report was transcribed using voice recognition software. Every effort was made to ensure accuracy, however, inadvertently computerized restaurant crew member mistakes may be present. Appropriate healthcare PPE [...] 1 tab(s (more content not included)... Normal [facility] Comment on above: Result Comment: Elec tronically Signed By: Juan Ott PA-C\.br\Date and Time Signed: 07/27/22 12:06 EST\.br\Electronically Co-Signed By: Saúl Gaspar MD\.br\Date and Time Co-Signed: 07/28/22 07:23 EST Consent for Treatmenton 07-10 Consent for Treatment [id number]:127 [facility] Discharge Instructionson Discharge Instructions [id number] .[id number]:127 [facility] ED Clinical Summaryon 2022 ED Clinical Summary [place] [id number] ED Clinical Summary Person Information Name: RJ ELENA Calista/[facility] Age: 32 Years : 1990 Sex: Female Language: Citizen Of [place] PCP: Mark Pitts DO Marital Status: Single Phone: [phone] Visit Id: Visit Reason: Ankle pain-swelling; RIGHT [...] 07/27/2022 11:34:49 ADDRESS: [address] [facility] [id number] PHYS DOC NOTES: MEDICAL INFORMATION: Prescriptions Given: [...] Ankle Sprain Follow up: With: Address: When: [place] [phone] Business (0) In 3 days 07/30/2022 DIAGNOSIS: Ankle sprain Normal [facility] ED Patient Education Noteon 07-27-2022 ED Patient [...] your activities and whether you should start bmsai-ph-wvapws exercises for your injury. Ice Ice your [...] 12/16/2002 Document Revised: 03/16/2018 Document Reviewed: 03/16/2018 [employer] Patient Education ? 2020 [employer]. Ankle Sprain An ankle sprain is a [...] the cau (more content not included)... Normal [facility] ED Patient Summaryon 023 ED Patient Summary [place] [id number] Patient Discharge Instructions Person Information Name: RJ ELENA Age: 32 Years Arrival Date: 07/27/2022 10:09:44 Discharge Diagnosis: Ankle sprain Primary Care Physician: Mark Pitts DO Provider Information Primary Provider: [employer] Music Teacher:Juan Ott PA-C The exam and treatment you received in the Emergency Department were for an urgent problem and are not intended as complete care. It is important that you follow up with a doctor, nurse practitioner, or physician?s insurance claims assistant for ongoing care. If your symptoms [...] Follow-up Instructions: With: Address: When: Mark Pitts [address] [place], [place] [id number] Business (1) In 3 days 07/30/2022 In the event that this physician does not participate in your insurance network, please consult with your insurance company to find a nearby participating provider. Patient Education Materials: Elastic Bandage and RICE Therapy; Ankle Sprain A MESSAGE TO ALL PATIENTS REGARDING OPIOIDS PRESCRIPTION OPIOIDS: WHAT YOU NEED TO KNOW Prescription opioids can be used to help relieve csewkvuk-ly-yydqle pain and are often prescribed following a [...] be struggling with addiction, tell your health senior care specialist and ask for guidance or call SAM[employer]?S National Helpline at 4-172-572-HELP. v Source: (more content not included)... [facility] Prescriptions/Work Noteson 0 07-27-2022 Prescriptions/Work Notes [id number] .[id number]:127 [facility] XR Ankle 3+ Views Righton XR Ankle [...] V. Transcribed by: ESTEVAN Technologist: CHARLOTTE Márquez [facility] Coding Summary.on 04-18-2022 Coding Summary. CD:[id number] G h0bWw+PGhlYWQ+RA2AVYJ hK25xhRWhfN9AP2nBBA1V VFWDAEGEDS0GUX0psQO0W DxuK0RmqvCb JssmfSKpVV75KWv3KSZ3x NwbTIprdD0ljRSjZ5k5Uf DgVO94gF74JJauKJDiJhP 3LjZpbjsgbWFy J5lgLvWiaLOfPtv+PHRhY mxlIHdpZHRoPScxMDAlJy UrvOvuKH9oJw1hSJFvELL vbGxhcHNlOiBj y7faDDUqMOxkIO7vuKhvI 7CasBX6RVDzf1a9Lf05iV I+TTCvMZR6gGhiYChcq11 2ElGwc6yrNXP3 xGXpYKqxOQD9D65ak4B4H QNoDAPwDFG9uMM9zT0xmO tpasruC5JkdBXhUcX1VIK 9kBFrtY2dlFfc gfdwlE6cYcg+N66AKU1PM RZPEC2AApr5S7VvOeydvW I+TN82RVBhMO60pAPgxRC ij9wayLo6BuYy XOAqZYD1bYrnKFldk9EzM NEmI75emGEkb8R5FGMfnZ zjoELrEzTitLH5oO7tXRq tyiedq1gljpgp Bpblt5kjtb16wM28G60fA FpwCBKbQJJ8DKKwVMFgiT xroj1lnW2uGl2+HNlev9z nu7jsuTk1XqJe YECfmfTxqQgdISW4y4GnC k28S4PymGeul2QhUcp0fr 76bSKkg6Q1yNQ5HIkvOGV geM2lNBuoYsF6 IBEqAbCchQ20uEGtFPzpS v6zbThtyPmxJI5bQWJmvo gtOLDuvC8aOZGqcFEljSf eHX4fKADrtbqt c573KeFuTMM7JVXngTAjJ 4VmaM8jLqWuOCTtWPYuD8 UzuHCfSVxrK349YGarKtG 6PEAoyeXtN2Qe GSWesGtwLgH5d4N9Ck9Vc 7WrcanwHKG4IOiuWUItXy MtGpZfRaY6L0FlAgq0PJV ntVymOO3uF4Yf ABMaisaadfjtvZX0RFSjN ICrdR44kALtWPlxCw8oz2 Y3t141TJAoLEQzhE57Im1 udDogMTBwdCBU lO6dylqxn5iqqxyvAeGgJ RKdSUr1OVk8JKXmlHzfEy YkBQK4GqS0TQO9yLBqjS4 rrTalnookrN5j Oyc+N62unD8iJSF3TKH4p airPLTxhbJqZN38AS04C4 RyPjwvdGFibGU+PGRpdiB uhSnxSK4tBrLv j6aop7XcYKmpF9MrAREcW YgoKlq9CXGeAFY8eGV5oN 1oLMBcRVcue3T2uVL2J5X gcaIbxd5kl5wg SJZhHOsiJ45cqSJhf4A2Z JXmzBW3SWJejXifLiNiuT 93Oyc+UMHikEzkl2VeMou yr2lmi3zsgLo6 WdQcGYFmefPglIvvOSO7g 0OgHq36I71mRLssTCPvQT NpKCMbGEKznVgadq3epK3 wIi8+PGNvbCB3 oXG4zH4qKSRfGmP2XDhqE 111NyKzyZNaHviyh1xxr7 erwKg1OnPgSJUvyiBntWo aBOY3i5QaQx44 P43sUJosWAFvRUKuCDJjD UMaaOtedm3zhJ4fJr6+PC 4vh7ivcj17jO95lPM+PHR iIOP3xJniWBfb GJFruN2wPKvwJaS1DCFvB kVyuO80eFAcFCgzSm1rhU qwvZuoOO7xSBFgveqgp04 5AuJph7szSQKn vVFuKNftOLM5N27uo6D6I ABrMEGuAAQ1yCN7fK6evY lnbjogbGVmdDsgdmVydGl nUOdtIJcrA210 IHRvcDsnPlBhdGllbnQgT iLwRVc6O1HfRvm9HNXxiV xkCC6qmLXbVAdjFm1tnRb grHvfVJ7yFDLc daaoj018ZpJpg5qhEWYnz LCbNUtiZXB6W83ak5L5LY XcHSNwPCN0iWE2oX2guRq nbjogbGVmdDsg evIqdFelGJnjWIwiZ403L HRvcDsnPkJpcnRoIERhdG Y9YE97KH92vQGiy8D6pCB 8I2YxWKTikcqr nmcwwWA3SBKgVVQooN69M g3gcUmfMu3pTLUtVZV1PY FevTAhF9NcnL3cEzTaERK bBFAuW8WifQTi BDvsY181WBksYsU0XAMjy fLbH3LqCNNsxKfvTmP7m1 I1Pr4SG6S4QK66TA96cXU xe4H9rTV3W8Gy GJRzgphpybnehDT0SVTdD VXgqB47On9foKcqZy4lDV DmZNG7VANejVWsX6IxlW4 yOiAjMDAwMDAw Z7LpzENbWEluS722UDnmA gW7IDKaolJfH8QbCGDalE nuCpE3z8E9Ba7LPEl8EV8 0LM63nQVcz1S7 pWP7F2VaSXRomifhybmjn DW2ARUpTWItdP00Et5odX khWw5hFZSlNZZ5QEPdkQI nK6VtxY0gRlWt WBDoZPPzL7FjbNPjBTxlF 377ACxwZcF0VZNipiSdP3 UcYTIslItoXtC2g4G9Kg5 NNAMmZI00MIK0 xQG7XO15EZ65E9EtQkbhx GFibGU+PHRhYmxlIHdpZH RoPScxMDAlJyBzdHlsZT0 tXr7bHZDeXAXq yDljiKHrQqEup2rbEUZpU JfsBR9hhIoxV4KssLR9OG Rcv8d6Ex75Y53wL2JacNM +UKHtxYF9tVM4 mU8rGjOiCqI9UZwpP625V gIpcMTiQvqwc8byj4kblI t7LsV7ZEVkqcXfgHrxBYF 7u6LsZm71S81w IHdpZHRoPSIxNSUiIHZhb Lrnla8xrG0iAl7+PGNvbC Q6oHV6xM0hGbLeUyC1LZg gC241HfSmdQDx Hvcjc5laj9lirFt4QhRfA OSdjaCjyGpiYDM2t2PsCy 91B3KvxTakj3OdJil0cu4 7fKEwp4E6nAI9 U4FbEKGkdavlsEUclRopJ O7qETJofyquRHDqdU2oVN VhT4r5MiUgWuS7HRutJ7V jkjG3OALpyWSa IDqsKAN2H45pq0P0CWJkU ZRvDJI7zIH3bJ3svKcqqt ogbGVmdDsgdmVydGljYWw dRSvcD039LRLm gVuvGUTzrF6gLUSjrQVdi GflKM8rFTQqbcygAsUPIP PMPPxrVIICV1OVXYaYGOI gRzwvdGQ+PHRk GWV0cBbfPQzcEXPokF6kY FXrD1y7ChXmLeO6RUrgT0 PsXZXdachgPb67jW5kYzM iIdL9IUpuQ6Gg nnP4EPDaxFHuZKnoQOD2R 05pz1O0MBBoDWJwTXK1fK X6aL4wfKffcaxntHTqlVn gdmVydGljYWwt VIpcR770EYEdvLkrPqJvX fD4OsL9EXS9X7GzMnz5FT OwvEvbJV2ffHKhACapJh9 huRbpcRyvCW3n WEKtycykOTMeeA6gLPQaa NCwwUtvCS4yPUTlnzhic6 03SvJhVPX2EGXuhCImS1T owA8sIuHcOMDw NMDuJ7LdrXWyTDcsJ746Z UblZdU8JBJduqLiX9MuRZ DkxUixBaQ8l1R7Jq9uAaB ZZWFyczwvdGQ+ JDZjZOC3eIicVPnxJFSyq Y1kZEDrP5c3OvMfRpX8HJ slQ4RaWUWtpjemGb13wQ8 rQfGiYeQ4XHio H0TrnhG2OXJabOOfUAbdB UP9V03wm1D1QIEwNEPgGS T1tCL5hQ9tmNeuybrkvTZ mdDsgdmVydGlj ZAboOApbQ345TIVshGlyF kZlbWFsZTwvdGQ+PHRkIH Y6nKdtEBgmDFAkgI0tQAJ fO9n1LxXwUdF4 QHhkU2WkGIPrfbjjSk05j C4wFbLpHzI6XDzsV2Gkzo I2IVGudKEwLThkBWM3W90 nf9B6PVZvJRTo UYX0eIK2oM1wbJtuqrkdu GVmdDsgdmVydGljYWwtYW mfO564RQIngOmuRlHnVYI yRW9dpYxdnQG+ VU34zn91F3HdGvwpNai5I OYeLOQ7wEW3yL6eHLTqWW xnt2B7zLI1C7EioyZbda3 xg5hhUSUxFAkk V70bmBDso0T9ZTQhrIG1R CLozWudAqCrnC28Zik+PG OjcYpkz4RwSkhof2doa3v pyWu4ZaWeTNRp ffHvzSajRYI2p0ZkPv65K 29sIHdpZHRoPSIzMCUiIH CnpLurak1vmM9qXh3+PGN gqOB8wPZ6lJ0x FpEuElV8CDjeG516LmDkq EWsGsnjx8hlb2rkwQc6Tk PgPLGmeePqkTwvVRJ0r9W xQn88V9TesAal i8XyIyf2np96zHBqf6K2d WZ3Q3CcXUAvotdpgLQsqU zkBK1wVITzksvqGWJncF5 vCXJoE8h5HxKt QdQ8BGqjB8YfocV6XSFzb JUgNLVxnXHSjU5htcgok0 jcrvbqMvVoYAHuCLx5QBl 0LWFsaWduOiBs YFS5ZeX4KRW0bMOmnK7qt AhquyrxyC5cQmb+UGh5c2 yqvFRiXR1cyJU6DH74PH7 9rZMfq3J2bHA2 S3PsTTGztugatosweZZ4W FAxIZZjuT81Xh2wxPkgUt 3tABPyKPD6BPXmeIYuN4W taM7iMpMyLNKg ZQNoX9UwaHNdRTctO639W LtmRbG1FHMievStC1FzIV UesPazPeN5j8M6Rj6SQM4 0WZ65SV96fWBh y3R8kKP4Z3KdORWvgqhsj jqukEU0TWPlHSLiuG61Iw 0hxEfqPs0oIVOtZQV6VXM pxDKzX2GgpA5j WyEqTLPdZZJcQ7FakWObW FoyN750PSavUgJ8XXLkoj QuF9LuUFKuzUveUgE0p7Z 2Kd6DYa21PE11 CI04lDDgb3A4hQP3E5QuI DEizjghvckujQC9YXJuTM XtcB18Ks8vkNivMx5dHTT fSSG1KENdzBZh Z0ExyO4sPmAaDXZzXZHjH 1ZmpCTuFEysO738PRdwPi J7YAJfutEfW3HyIUXfuJq qKbD7j2S0Er5Q HBotjui7W9ObSrcknGW+P P76ICSiFJ18pQKwbORlr7 sbuJl3TrIeYWWuKRP6cJm iAHrrz7JzFJSb Y29s (more content not included)... Normal [facility] Coding Summary. CD:[id number]:[id number] G h0bWw+PGhlYWQ+OK1NGPP sW97wbIQqnV3FJ0zPYJ3Q JQTIUYSYRI3JSW6xwIC7I LyuX1OqwtHt DmfnmVLsTR02JWo0RFA8g OdpFJdqyF3yvYLiS1g3Jc FtVY69pH31ZAooSGSzDqK 3LjZpbjsgbWFy U2qqAtCwrGFsDlt+PHRhY mxlIHdpZHRoPScxMDAlJy HkfChvZU0bYi0yQDItKWT vbGxhcHNlOiBj j7jqBZIuSUaxRJ5uyIktM 8HtgSY1IMJnm6g0Pk44uD I+WWGqITA0sZmaXZjiz44 5GyRgl5geFNE8 uYVqQZzzGLI1J82fr6I5Z KQfVQIqCUO6yUD5wH7tdK vbbgcqS6TptPPuGhI9SXS 2cIIleU0muDgx rfiktS2zJzp+L07RXQ4KQ DHPIC5ALrc2H1TmBqruqE I+GF07TPPlOA09jHBogUY my0ekwLy7KaKu LVDlVCZ7wNznMSjum4DxT YSnX95jkFMcx8J2KOHeyK zcuWDhGoFxbLZ0wJ5oCIv epsozm9ehzwml Eptem9grji17tE31E40hJ MuuZDTfSIF3MHIuAHPtyJ lpgr3rkK5kWi1+RCmqd8k dq1jcoId7TnEb GDMrpgQbwJdfZCS7k9EyT g53Z2LlpMtuw1OqMou4fo 37uTPad8N0eBF1XOzyKKQ nfW9qFWchTjV2 NUIkEfHgnA87oOFtCOyeM k1leRuyjQldTP0wTPRjvz thKBPicT5sTWMeoIOmpOm wTG1uPLIdxifr y235XpBzWAV4YSSqiYPzN 9RkhF7iFcDzCRNyTECeW6 DixVAfMWuzY720VXcuGiT 7FDThbvNaA5Dd UUQdgCvmNlY6n5O1Lc6Rz 0BtsnsvSOO6WCnfQIAjBf RyDgAuLwI1Y6RtQgc8VHV pePsjEC8cG1Ql KYOaqqhufxzctVH8IWNpS NTreX00tWHtQEckPs7xq5 F5m965DJJtZGDkjU57Vs1 udDogMTBwdCBU fN3nszjkr2xckoejPyXqR NYoRNk4RNg3SISzfKlmTf XnKEE4VmI2SNO3aVHejK2 laGxgdkfjhA3i Oyc+D09rfS6qHCY2ACF4q uwjQCLrzhFtDW02DT03Z6 RyPjwvdGFibGU+PGRpdiB elLkuWH8vKcVy q2gmb0DwBHmtB4VnHMZrA QjfErk5EABbYAC7uYC1eI 6bDYBbGJaxg8M1uEJ7S3Z yttCfcf6qg7kp OEVxJWrtY05bnAFsl7J1K HYfzML5NGBuxKwcKkPuvK 93Oyc+HHMduAqor1JfNnu dp2eog6pmsWt7 XeUnZPLwtsLefZnhEJB3s 9BjGx52A14sAGfsCYDyBU SdOGSoDKLxoHhhuq9eoK6 wIi8+PGNvbCB3 jBY7aU8qWZKyMgM7CCaeV 769HqWjhMNvHaoso2gwq2 olhHy5BqZyPFTckoNbgBs eESM7x7GuCe20 O03cUTfbTXWdYSKdSYXzK RPmwVyysa2iwP5wXs9+PC 2dt7cuyr99fV84eRO+PHR wZAN0tEsmCDuq OAAnwT0lJCjlDgU2GUFtH rStiK56gMUqWUifPd2biF gjpIcvSU5tFXYdafilx37 4HxJia6qlWVBz hSAgYNpwMVI5K53ty6V4O CScHHNwLCX4bMU7kK1zsO lnbjogbGVmdDsgdmVydGl qKNdbFXvuE683 IHRvcDsnPlBhdGllbnQgT lJbBBj8Y9ItMde1QTKufE wgLF3ggKWkRRgnQb2cpPy deGwzWU3oZONd exulc048BzKvs4duZULhs LOlKJsdXLF5V58oz8W4BY PvKQFlILB2kIB8vI6pkJh nbjogbGVmdDsg alCdtNmtQHxyGHnqV801A HRvcDsnPkJpcnRoIERhdG I6YH99XS39rEAaz9D8rKF 0L4LzKTAvxjlf ceqlsRW8MZGtEWOyiI27L b8sgFzkAp5qGRAnZCD5SI XuzYEsT0LvhG9qZbMxPNV tEVJoY8CqgBNr BPhnH375KRysIxU3DOSos lFtV9YhYERupNsjHvI9q5 O7Ju0IQ5R9DQ85QY15fPR wo8K4yYI7P8Qy CUMhnqdbgfxbgKG3HGMkP VGuuV24Eu0qdQyfAi7qME OhZRP3OVUhpAVbR3JbkR0 yOiAjMDAwMDAw W7QwtPKuJIvvA921ZUfsC aB3CRLcdoDiX2TsPJVnvP eyQsV1a2G0Gg0ERIg7OE3 1TP85rUHjh9E0 gJT8E3FiLZGdunzuzvtdb HF0CBCvPKMsdP27Ox1znU pkOv1eBPTiOES8MTBfhCE oG9EocA3xXsVz ZVZzIJQaR5OluTKvPLtsT 523RWnrHtQ4DODuqiZiQ4 EwYXRakQemVkD3m3T1Bc5 BOVUrXR37FTN9 cJU5YK46DS87O7LhTiwmq GFibGU+PHRhYmxlIHdpZH RoPScxMDAlJyBzdHlsZT0 pJi2kIORmBDHg zQyzuKMzQaTsz5biPWRwN RqsNR1qxXhmG6ZqbGM8LV Xvy4i4Lq96O51gC3WnjPL +OGAouQW5kXO7 mD0wTyIbKlZ5RHiqY465R rLreVRlZrhbb5tsx3qtyB f7KgA4HZEdajVosUkwTMC 5y1XcPh38J90d IHdpZHRoPSIxNSUiIHZhb Gjvyl8xmS5pCc5+PGNvbC K2nWW2jM2gJkMwIsC9PNr zL128PpMexJJi Xhnjd7nyd6vwmRq8SjZfI KRawoWgqQowLRV4a5WcId 18H9HtzTchj1OfCyv8uu7 1wSZnw8G9yNA5 J7JiLGQxvlnahTFljDpbG U5iKBCffaurLENjrH3qSC VyX4n7GoPlIdI2NUfbT7X scsI5LUVboWCr BTfcVTM2E86sa1N4JOJdX PTgKCW5kIL1iN0mfWrmib ogbGVmdDsgdmVydGljYWw pUIqrA109PVYf vOvcBTEhtP4aHKCywYMvw KpjJG1uPQPqvuwoEsDFVV ZMFUlqOGPXG9COCNqXWHS gRzwvdGQ+PHRk OBU7eNwuWMjnWWXicR9uI VYjS0d0BjQbDmB5IIucC9 ZkWFBmsulcSh50lG7tZaO qMvJ6WVdeF4Vz xiX5VZYxwUGgNCscVGS1A 23kn1B9YJLfYWDqBCO0jU Z7nX4hyDclmcbmwBBokBx gdmVydGljYWwt ASzeL413DSRyuBwlYcEuT jI5LnJ7KFF4L9EeMne1IM TkgZvkPB2wcNSyYDndXs4 trVlcpAcrIQ9m ONVnhdewILQerR9zBDDbq PKknAxcMC0dITOhqmcid2 48OjPrQHF6OIUgjCXnJ2Y eiI1kWwYuQYBu NJHoG5HvwSKpFTirV887T CzjUpM9SYWproAqR9UvMX VleJicTzJ1b3N6Kk8fOhU ZZWFyczwvdGQ+ CNIbWXD4jVheFFkxCKPyg J0mSWKoH9z5KvQjRwW1IR xtG7DeFJUohtkcEp27jL5 sInTiAsF1VLlk Q7DebpM5YRRkyNHfUEeoX UJ9O77ug0V0QDFrQZFcLO X0uBB2gY2xsLzycpdwnBB mdDsgdmVydGlj JWeoHRmcK351MENmaQeqQ kZlbWFsZTwvdGQ+PHRkIH I3rQdhZFeoXIZdlJ7iOXM bD3o8KfMlAeR5 ZUlsU3MaFLLhpbzoGg72l E2hZeTkShX1HQchK0Fmal K8QVDswYXxKXzfDTX4E31 vg7B1CWGxBWJi SIU3gEM8iJ6cqSmfijmvq GVmdDsgdmVydGljYWwtYW noN323DGIffZoiTeCdSTL iBZ9ifXaakEU+ GI36fe03O3ZbBkpnYbr6J SMlUIM9qOE0qR8cROYaNA rrp7Z1aTR3T9CcjdQjwa7 tv3ahCYKqVUil Z36otHXni8Q6AVHieHA7J KTkaInsExQtwF61Zro+PG FgpEtuv3UqHijfx5yad9s xkRn3RzBbGSWh ueLypJwdYTL2e8ToMk61M 29sIHdpZHRoPSIzMCUiIH LxwRagvp1yvS7cHz8+PGN ghBN4nZO1hA1q LmEmOuO8VYjcO513HqOhu SGvIvtjh5vcu0kupBz3Oi YzHWGzcnLqwUkhNDM1q3J wIa73P5KcuIvs v4EgZog1vl15oBRix4M6r NB8W4NbTVFlfrmlgIZtmF bsJF9nMUUrowkzWLMkqE6 dNLWmL4c4OoNt NlX6KUhpG7SoihY9HSBft FPvVDUoiWJAlV6ewjlfe3 wxkzrcXxPjYVUiLBi9MZa 0LWFsaWduOiBs ZAA7EuS6LYP7xROlyD8mh QxsinsiaU8jTsg+UGh5c2 zxjFZlSI4qvPM9CS13QB6 6zRUym8K6yGW8 G6ZeIBUazfxjrngtdKO6O BPcKUFrgL34Zj9rdGjkFo 8bBHQwGJW9RARvwCMrF1B ztP5jNzFzHOJo NKHnI7NstNZaLRehE124S GxiToQ2BHDxrqJiG0OjWV MnvRxqPvQ5f0T6Ss7KYM9 8AM04RL69uHVz f1I7wBX4E2McXMQaqfsml iuivJT6ZKEyQGZifI76Ch 3ejCpoTf8rZWZcKAM1RML uiQZcK0HvmP5t OuUpPRIhYARhN4QbxNOzX FwoV436HZqbRlB0URLdbr McX6JjVVJclWahFdN7r9Z 7Fx7NXi52RP51 JO06zFWzg0E9tUN0D0MyJ KWxqrhudgvbuCR9RJVxOR BygS74Mg4ysKqdUa2mRVH hFBR0DSEhmNRr E9FluJ8iEkDzBGFnUPUeH 5DlbGTbGPhlG654TCvsRz S3DOQkgcCaP1WcSQZkdHb dRmZ5h1U0Nx2D KKjttri3P2NuYisxhMP+P W76YRXzQZ12cIRiyPJkm0 vmsEk9TpJyFEHyYJR0kTa kODdzp7CrBPKm Y29s (more content not included)... Normal [facility] ED Note-Physicianon 04-16-20 ED Note-Physician Basic Information Time Seen: Robinson Galvan PA-C 04/14/2022 14:53 Chief Complaint pt c/o allergic reaction to possibly motrin. pt was having swelling and redness in the face and tongue. ppt c/o sob. 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 History of Present Illness 31-year-old female [...] Pitts In 3 days 04/17/2022 EDT [address] Business (1) Additional Instructions: Patient Education Anaphylactic Reaction, Adult Attestation Patient seen (more content not included)... Normal [facility] Comment on above: Result Comment: Elec tronically Signed By: Robinson Galvan PA-C\.br\Date and Time Signed: 04/14/22 18:33 EDT\.br\Electronically Co-Signed By: Saúl Gaspar MD\.br\Date and Time Co-Signed: 04/15/22 23:22 EDT Consent for Treatmenton Consent for Treatment [id number]#1 .00CD:127 Normal [facility] Discharge Instructionson Discharge Instructions [id number]# 1.00CD:127 Normal [facility] ED Clinical Summaryon 2021 ED Clinical Summary [place] [id number] ED Clinical Summary Person Information Name: RJ ELENA Calista/[facility] Age: 31 Years : 1990 Sex: Female Language: Citizen Of [place] PCP: Mark Pitts DO Marital Status: Single Phone: [phone] Visit Id: Visit Reason: Allergic reaction - [...] 04/14/2022 19:42:49 04/14/2022 19:42:49 04/14/2022 19:42:49 ADDRESS: [address] [place] [phone] PHYS DOC NOTES: MEDICAL INFORMATION: Prescriptions Given: New Medications [facility], [address] [place], [place] [id number], [phone] epinephrine (EpiPen 2-Ze 0.3 mg injectable kit) 1 Each Intramuscular As Directed. May substitute for another brand if required by insurance or inventory. Refills: 0. famotidine (Pepcid 40 mg Tab) 1 Tablets By Mouth once a day (at bedtime) for 7 Days. Refills: 0. Medications to Continue Taking That Have Changed [facility], [address] [place], [place] [id number], [phone] START: predniSONE (predniSONE 20 mg Tab) 3 [...] Reaction, Adult Follow up: With: Address: When: [address] [address] Business (1) In 3 days 04/17/2022 DIAGNOSIS: 1:Anaphylaxis Normal [facility] ED Patient Education Noteon 04-14-2022 ED Patient [...] Symptoms of anaphylaxis may include: ? 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 This may include redness. [...] have hives or rash: ? Use an koaj-vht-zblxarp antihistamine as told by your health care provider. ? Apply cold, wet cloths (cold compresses) to your skin or take baths or showers in cool water. Avoid hot water. ? Take zfol-yrr-jzqmxxg and prescription medicines only as told by your health care provider. ? Tell all your health care providers that you have an allergy. ? Keep all follow-up visits as told by your health care provider. This is important. How is this prevented? ? Avoid allergens that have caused an anaphylactic reaction in the past. ? When you are at a restaurant, tell your casino beverage server that you have an allergy. If you are not sure whether a menu item contains an ingredient that you are allergic to, ask your casino beverage server. Where to find more information ? [employer] [employer]: aaaai.org ? [place] [employer]: healthychildren.org Get help right [...] medicine s (more content not included)... Normal [facility] [place] ED Patient Summaryon 022 ED Patient Summary [place] [id number] Patient Discharge Instructions Person Information Name: RJ ELENA Age: 31 Years Arrival Date: 04/14/2022 14:45:02 Discharge Diagnosis: 1:Anaphylaxis Primary Care Physician: Mark Pitts DO Provider Information Primary Provider: Saúl Gaspar MD [employer] Music Teacher:Robinson Galvan PA-C The exam and treatment you received in the Emergency Department were for an urgent problem and are not intended as complete care. It is important that you follow up with a doctor, nurse practitioner, or physician?s insurance claims assistant for ongoing care. If your symptoms [...] Follow-up Instructions: With: Address: When: Mark Pitts [address] [place] [address] [facility] () In 3 days 04/17/2022 In the event that this physician does not participate in your insurance network, please consult with your insurance company to find a nearby participating provider. Patient Education Materials: Anaphylactic Reaction, Adult A MESSAGE TO ALL PATIENTS REGARDING OPIOIDS PRESCRIPTION OPIOIDS: WHAT YOU NEED TO KNOW Prescription opioids can be used to help relieve fuqjlqzh-so-hunaxf pain and are often prescribed following a [...] be struggling with addiction, tell your health senior care specialist and ask for guidance or call SAMHSA?S National Helpline at 9-717-294-HELP. v Source (more content not included)... Normal [facility] [place] Covid-19 PCR (CVDTBH)on 07-0 7-2022 SARS-CoV-2 (COVID-19) RNA YARELY+probe Ql (Unsp spec) Detected Critically abnormal NOT DETECTED [facility] Comment on above: Result Comment: This test is not yet approved or cleared by the [place] FDA. When there are no FDA-approved or cleared tests available, and other criteria are met, FDA can make tests available under an emergency access mechanism called an Emergency Use Authorization (EUA). The EUA for this test is supported by the [place] of Health and Human Service's (HHS's) declaration [...] By: #### C VDTB #### [facility] [address] [place] [address] Dr. Tj Wild CBC AUTO DIFFon 07-05-2021 BASO # 0.0 103/ul Normal 0.0-0.1 [facility] Comment on above: Performed By: #### C BC #### [facility] [address] [place] [address] Dr. Tj Wild Basophils/100 WBC (Bld) 0.1 % Critically low 0.2-2.0 [facility] Comment on above: Performed By: #### C BC #### [facility] [address] [place] [address] Dr. Tj Wild EO # 0.0 103/ul Normal 0.0-0.7 [facility] Comment on above: Performed By: #### C BC #### [facility] [address] [place] [address] Dr. Tj Wild Eosinophils/100 WBC (Bld) 0.0 % Critically low 0.9-7.0 [facility] Comment on above: Performed By: #### C BC #### [facility] [address] [place] [address] Dr. Tj Wild Erythrocyte distribution width (RBC) [Ratio] 17.2 % Critically high 11.0-15.0 [facility] Comment on above: Performed By: #### C BC #### [facility] [address] [place] [address] Dr. Tj Wild Hematocrit (Bld) [Volume fraction] 36.3 % Normal 36.0-48.0 [facility] Comment on above: Performed By: #### C BC #### [facility] [address] [place] [address] Dr. Tj Wild Hemoglobin (Bld) [Mass/Vol] 12.3 g/dL Normal 12.0-16.0 [facility] Comment on above: Performed By: #### C BC #### [facility] [address] [place] [address] Dr. Tj Wild IG # 0.08 10e3/ul Critically high 0.00-0.03 [facility] Comment on above: Performed By: #### C BC #### [facility] [address] [place] [address] Dr. Tj Wild IG % 0.5 % Normal 0.0-0.5 [facility] Comment on above: Performed By: #### C BC #### [facility] [address] [place] [address] Dr. Tj Wild LYMPH # 2.2 103/ul Normal 1.2-3.8 [facility] Comment on above: Performed By: #### C BC #### [facility] [address] [place] [address] Dr. Tj Wild Lymphocytes/100 WBC (Bld) 13.8 % Critically low 20.5-60.0 [facility] Comment on above: Performed By: #### C BC #### [facility] [address] [place] [address] Dr. Tj Wild MANUAL DIFF REQ NO Normal [facility] Comment on above: Performed By: #### C BC #### [facility] [address] [place] [address] Dr. Tj Wild MCH (RBC) [Entitic mass] 26.6 pg Critically low 26.7-34.0 [facility] Comment on above: Performed By: #### C BC #### [facility] [address] [address] [address] Tj Wild MCHC (RBC) [Mass/Vol] 33.9 g/dL Normal 29.9-35.2 [facility] Comment on above: Performed By: #### C BC #### [facility] [address] [address] [address] Tj Wild MCV (RBC) [Entitic vol] 78.4 fL Critically low 81.0-99.0 [facility] Comment on above: Performed By: #### C BC #### [facility] [address] [address] [address] Tj Wild MONO # 0.7 103/ul Normal 0.3-0.8 [facility] Comment on above: Performed By: #### C BC #### [facility] [address] [address] [address] Tj Wild Monocytes/100 WBC (Bld) 4.6 % Normal 1.7-12.0 [facility] Comment on above: Performed By: #### C BC #### [facility] [address] [address] [address] Tj Wild NEUT # 12.9 103/ul Critically high 1.4-6.5 [facility] Comment on above: Performed By: #### C BC #### [facility] [address] [address] [address] Tj Wild Neutrophils/100 WBC (Bld) 81.0 % Critically high 43.0-75.0 [facility] Comment on above: Performed By: #### C BC #### [facility] [address] [address] [address] Tj Wild Platelet mean volume (Bld) [Entitic vol] 10.3 fL Normal 9.5-13.5 [facility] Comment on above: Performed By: #### C BC #### [facility] [address] [address] [address] Tj Wild PLT 254 103/ul Normal 150-450 [facility] Comment on above: Performed By: #### C BC #### [facility] [address] [place] [address] Dr. Tj Wild RBC 4.63 106/ul Normal 4.20-5.40 [facility] Comment on above: Performed By: #### C BC #### [facility] [address] [place] [address] Dr. Tj Wild WBC 16.0 103/ul Critically high 4.0-11.0 [facility] Comment on above: Performed By: #### C BC #### [facility] [address] [place] [address] Dr. Tj Wild Covid-19 PCR (CVDTBH)on 06-10 SARS-CoV-2 (COVID-19) RNA YARELY+probe Ql (Unsp spec) Not detected Normal NOT DETECTED [facility] Comment on above: Result Comment: When [...] for this test is supported by the [place] of Health and Human Service's declaration that [...] By: #### C VDTBH #### [facility] [address] [place] [address] Dr. Tj Wild D-DIMERon 07-05-2021 D-DIMER 6.07 mg/L FEU Critically high 0.19-0.50 [facility] Comment on above: Performed By: #### D DIM #### [facility] [address] [place] [address] Dr. Tj Wild D-DIMER COMMENTS SEE BELOW Normal [facility] Comment on above: Result Comment: Incr eases [...] By: #### D DIM #### [facility] [address] [place] [address] Dr. Tj Wild PREG HCG QUALon 07-05-2021 , QUAL Negative Normal NEGATIVE [facility] Comment on above: Performed By: #### P REG #### [facility] [address] [place] [address] Dr. Tj Wild PROF 14(COMP METB)on 021 Albumin [Mass/Vol] 3.5 g/dL Normal 3.5-5.0 [facility] Comment on above: Performed By: #### H STROPN, CMP #### [facility] [address] [place] [address] Dr. Tj Wild Albumin/Globulin [Mass ratio] 1.1 {ratio} Normal [facility] Comment on above: Performed By: #### H STROPN, CMP #### [facility] [address] [address] [address] Tj Wild ALP [Catalytic activity/Vol] 56 U/L Normal 38-126 [facility] Comment on above: Performed By: #### H STROPN, CMP #### [facility] [address] [address] [address] Tj Wild ALT [Catalytic activity/Vol] 21 U/L Normal 9-52 [facility] Comment on above: Performed By: #### H STROPN, CMP #### [facility] [address] [place] [address] Dr. Tj Wild Anion gap [Moles/Vol] 14.4 mmol/L Normal [facility] Comment on above: Performed By: #### H STROPN, CMP #### [facility] [address] [address] [address] Tj Wild AST [Catalytic activity/Vol] 27 U/L Normal 14-36 [facility] Comment on above: Performed By: #### H STROPN, CMP #### [facility] [address] [address] [address] Tj Wild Bilirubin [Mass/Vol] 0.5 mg/dL Normal 0.2-1.3 [facility] Comment on above: Performed By: #### H STROPN, CMP #### [facility] [address] [place] [address] Dr. Tj Wild Calcium [Mass/Vol] 8.7 mg/dL Normal 8.4-10.2 [facility] Comment on above: Performed By: #### H STROPN, CMP #### [facility] [address] [place] [address] Dr. Tj Wild Chloride [Moles/Vol] 101 mmol/L Normal 98-107 [facility] Comment on above: Performed By: #### H STROPN, CMP #### [facility] [address] [place] [address] Dr. Tj Wild CO2 [Moles/Vol] 26.3 mmol/L Normal 22.0-30.0 [facility] Comment on above: Performed By: #### H STROPN, CMP #### [facility] [address] [place] [address] Dr. Tj Wild Creatinine [Mass/Vol] 0.89 mg/dL Normal 0.52-1.04 [facility] Comment on above: Performed By: #### H STROPN, CMP #### [facility] [address] [place] [address] Dr. Tj Wild EGFR-AF SOU[place]FR[place] >60 Normal >=60 [facility] Comment on above: Performed By: #### H STROPN, CMP #### [facility] [address] [place] [address] Dr. Tj Wild EGFR-NON AF [place]OUTH AFRICAN >60 Normal >=60 [facility] Comment on above: Performed By: #### H STROPN, CMP #### [facility] [address] [address] [address] Tj Wild Globulin (S) [Mass/Vol] 3.3 g/dL Normal [facility] Comment on above: Performed By: #### H STROPN, CMP #### [facility] [address] [address] [address] Tj Wild Glucose [Mass/Vol] 116 mg/dL Critically high 74-106 [facility] Comment on above: Performed By: #### H STROPN, CMP #### [facility] [address] [place] [address] Dr. Tj Wild Potassium [Moles/Vol] 3.7 mmol/L Normal 3.4-5.0 [facility] Comment on above: Performed By: #### H STROPN, CMP #### [facility] [address] [place] [address] Dr. Tj Wild Protein [Mass/Vol] 6.8 g/dL Normal 6.1-8.2 [facility] Comment on above: Performed By: #### H STROPN, CMP #### [facility] [address] [place] [address] Dr. Tj Wild Sodium [Moles/Vol] 138 mmol/L Normal 137-145 [facility] Comment on above: Performed By: #### H STROPN, CMP #### [facility] [address] [place] [address] Dr. Tj Wild Urea nitrogen [Mass/Vol] 20.0 mg/dL Critically high 7.0-17.0 [facility] Comment on above: Performed By: #### H STROPN, CMP #### [facility] [address] [place] [address] Dr. Tj Wild Urea nitrogen/Creatinine [Mass ratio] 22.5 mg/mg Normal [facility] Comment on above: Performed By: #### H STROPN, CMP #### [facility] [address] [place] [address] Dr. Tj Wild TROPONIN, HIGH SENSITIVITYon 07-05-2021 HSTROP 10.4 pg/mL Normal 4.0-35.5 [facility] Comment on above: Result Comment: CUT- OFF POINTS HAVE BEEN ESTABLISHED BASED ON THE FOURTH UNIVERSAL DEFINITIONS OF MYOCARDIAL INFARCTION. THE UPPER REFERENCE LIMIT (URL) OF TROPONIN, DEFINED THE 99TH PERCENTILE OF cTnI DISTRIBUTION IN A REFERENCE POPULATION, HAS BEEN CONFIRMED THE DECISION THRESHOLD FOR HI DIAGNOSIS. Performed By: #### H STROPN, CMP #### [facility] [address] [address] [address] Tj Wild XR CHEST 1 Von [...] by: Cassius MCKEON Date: 2021-07-05 20:35 Normal [facility] Vital Signs Date Time Vital Sign Value Performing Clinician Facility 08-21-2023 11:12-0500 Body mass index (BMI) [Ratio] 32.95 kg/m2 Bhumika COKER Work Phone: [facility] 08-21-2023 11:12-0500 Body weight 84.37 kg Bhumika COKER Work Phone: [facility] 08-21-2023 11:12-0500 Diastolic blood pressure 60 mm[Hg] Bhumika COKER Work Phone: [facility] 08-21-2023 11:12-0500 Systolic blood pressure 110 mm[Hg] Bhumika COKER Work Phone: [facility] 02-26-2023 15:56-0400 Body temperature 98.78 [degF] Charlie Rubalcava [facility] 02-26-2023 15:56-0400 Diastolic blood pressure 76 mm[Hg] Charlie Rubalcava [facility] 02-26-2023 15:56-0400 Heart rate 107 /min Charlie Rubalcava [facility] 02-26-2023 15:56-0400 Respiratory rate 16 /min Charlie Rubalcava [facility] 02-26-2023 15:56-0400 SaO2% (BldA) [Mass fraction] 98 % Charlie Rubalcava [facility] 02-26-2023 15:56-0400 Systolic blood pressure 115 mm[Hg] Charlie Rubalcava [facility] 12-31-2022 10:16-0400 Body temperature 98.24 [degF] Javier Woods [facility] 12-31-2022 10:16-0400 Diastolic blood pressure 82 mm[Hg] Javier Reynae [facility] 12-31-2022 10:16-0400 Heart rate 90 /min Javier Reynae [facility] 12-31-2022 10:16-0400 Respiratory rate 18 /min Javier Woods [facility] 12-31-2022 10:16-0400 SaO2% (BldA) [Mass fraction] 99 % Javier Reynae [facility] 12-31-2022 10:16-0400 Systolic blood pressure 129 mm[Hg] Javier Peggy [facility] 12-30-2022 13:13-0400 Body temperature 98.06 [degF] Javier Peggy [facility] 12-30-2022 13:13-0400 Diastolic blood pressure 75 mm[Hg] Javier Peggy [facility] 12-30-2022 13:13-0400 Heart rate 88 /min Javier Peggy [facility] 12-30-2022 13:13-0400 Respiratory rate 16 /min Javier Woods [facility] 12-30-2022 13:13-0400 SaO2% (BldA) [Mass fraction] 96 % Javier Woods [facility] 12-30-2022 13:13-0400 Systolic blood pressure 125 mm[Hg] Javier Woods [facility] 12-21-2022 13:35-0400 Body temperature 98.24 [degF] Charlie Rubalcava [facility] 12-21-2022 13:35-0400 Diastolic blood pressure 77 mm[Hg] Charlie Khadar [facility] 12-21-2022 13:35-0400 Heart rate 93 /min Charlie Khadar [facility] 12-21-2022 13:35-0400 Respiratory rate 18 /min Charlie Khadar [facility] 12-21-2022 13:35-0400 SaO2% (BldA) [Mass fraction] 99 % Charlie Rubalcava [facility] 12-21-2022 13:35-0400 Systolic blood pressure 128 mm[Hg] Charlie Khadar [facility] 09-05-2022 22:53-0500 Diastolic blood pressure 63 mm[Hg] Kaylinn Dokken [facility] 09-05-2022 22:53-0500 Heart rate 93 /min Kaylinn Dokken [facility] 09-05-2022 22:53-0500 Mean blood pressure 80 mm[Hg] Kaylinn Dokken [facility] 09-05-2022 22:53-0500 Respiratory rate 20 /min Kaylinn Dokken [facility] 09-05-2022 22:53-0500 SaO2% (BldA) [Mass fraction] 95 % Kaylinn Dokken [facility] 09-05-2022 22:53-0500 Systolic blood pressure 114 mm[Hg] Kaylinn Dokken [facility] 09-05-2022 21:45-0500 Diastolic blood pressure 60 mm[Hg] Kaylinn Dokken [facility] 09-05-2022 21:45-0500 Heart rate 97 /min Kaylinn Dokken [facility] 09-05-2022 21:45-0500 Mean blood pressure 80 mm[Hg] Kaylinn Dokken [facility] 09-05-2022 21:45-0500 Respiratory rate 16 /min Kaylinn Dokken [facility] 09-05-2022 21:45-0500 SaO2% (BldA) [Mass fraction] 93 % Kaylinn Dokken [facility] 09-05-2022 21:45-0500 Systolic blood pressure 119 mm[Hg] Kaylinn Dokken [facility] 09-05-2022 21:03-0500 Body temperature 97.52 [degF] Kaylinn Dokken [facility] 09-05-2022 21:03-0500 Diastolic blood pressure 56 mm[Hg] Kaylinn Dokken [facility] 09-05-2022 21:03-0500 Heart rate 115 /min Quita Clark [facility] 09-05-2022 21:03-0500 Respiratory rate 32 /min Perlan Gretaen [facility] 09-05-2022 21:03-0500 SaO2% (BldA) [Mass fraction] 95 % Quita Hernandesen [facility] 09-05-2022 21:03-0500 Systolic blood pressure 123 mm[Hg] Quita Hernandesen [facility] 04-14-2022 19:00-0400 Diastolic blood pressure 70 mm[Hg] Saúl Hubert [facility] 04-14-2022 19:00-0400 Heart rate 91 /min Saúl Hubert [facility] 04-14-2022 19:00-0400 Mean blood pressure 83 mm[Hg] Saúl Hubert [facility] 04-14-2022 19:00-0400 Respiratory rate 14 /min Saúl Hubert [facility] 04-14-2022 19:00-0400 SaO2% (BldA) [Mass fraction] 96 % Saúl Hubert [facility] 04-14-2022 19:00-0400 Systolic blood pressure 110 mm[Hg] Saúl Hubert [facility] 04-14-2022 18:22-0400 Diastolic blood pressure 64 mm[Hg] Saúl Hubert [facility] 04-14-2022 18:22-0400 Heart rate 87 /min Saúl Hubert [facility] 04-14-2022 18:22-0400 Mean blood pressure 76 mm[Hg] Saúl Hubert [facility] 04-14-2022 18:22-0400 Respiratory rate 20 /min Saúl Hubert [facility] 04-14-2022 18:22-0400 SaO2% (BldA) [Mass fraction] 95 % Saúl Hubert [facility] 04-14-2022 18:22-0400 Systolic blood pressure 100 mm[Hg] Saúl Hubert [facility] 04-14-2022 17:00-0400 Diastolic blood pressure 61 mm[Hg] Saúl Hubert [facility] 04-14-2022 17:00-0400 Respiratory rate 19 /min Saúl Hubert [facility] 04-14-2022 17:00-0400 SaO2% (BldA) [Mass fraction] 93 % Saúl Hubert [facility] 04-14-2022 17:00-0400 Systolic blood pressure 105 mm[Hg] Saúl Hubert [facility] 04-14-2022 15:35-0400 Heart rate 92 /min Saúl Hubert [facility] 04-14-2022 15:35-0400 Respiratory rate 16 /min Saúl Hubert [facility] 04-14-2022 14:48-0400 Body temperature 98.06 [degF] Saúl Hubert [facility] 04-14-2022 14:48-0400 Heart rate 113 /min Saúl Hubert [facility] 04-14-2022 14:48-0400 Respiratory rate 18 /min Saúl Hubert [facility] 11-19-2021 19:00-0400 Hourly Rounding Javier Peggy [facility] 11-19-2021 19:00-0400 Promise to Return Javier Reynae [facility] 11-19-2021 18:45-0400 Diastolic blood pressure 64 mm[Hg] Javier Peggy [facility] 11-19-2021 18:45-0400 Heart rate 85 /min Javier Peggy [facility] 11-19-2021 18:45-0400 Mean blood pressure 76 mm[Hg] Javier Peggy [facility] 11-19-2021 18:45-0400 Respiratory rate 16 /min Javier Peggy [facility] 11-19-2021 18:45-0400 SaO2% (BldA) [Mass fraction] 98 % Javier Peggy [facility] 11-19-2021 18:45-0400 Systolic blood pressure 100 mm[Hg] Javier Peggy [facility] 11-19-2021 18:15-0400 Diastolic blood pressure 70 mm[Hg] Javier Peggy [facility] 11-19-2021 18:15-0400 Heart rate 84 /min Javier Epggy [facility] 11-19-2021 18:15-0400 Mean blood pressure 85 mm[Hg] Javier Peggy [facility] 11-19-2021 18:15-0400 Respiratory rate 16 /min Javier Peggy [facility] 11-19-2021 18:15-0400 SaO2% (BldA) [Mass fraction] 96 % Javier Peggy [facility] 11-19-2021 18:15-0400 Systolic blood pressure 114 mm[Hg] Javier Woods [facility] 11-19-2021 17:45-0400 Diastolic blood pressure 71 mm[Hg] Javier Woods [facility] 11-19-2021 17:45-0400 Heart rate 86 /min Javier Woods [facility] 11-19-2021 17:45-0400 Mean blood pressure 81 mm[Hg] Javier Woods [facility] 11-19-2021 17:45-0400 Respiratory rate 16 /min Javier Woods [facility] 11-19-2021 17:45-0400 SaO2% (BldA) [Mass fraction] 97 % Javier Woods [facility] 11-19-2021 17:45-0400 Systolic blood pressure 102 mm[Hg] Javier Woods [facility] 11-19-2021 15:45-0400 Blood Pressure Location Javier Woods [facility] 11-19-2021 15:22-0400 Body temperature 98.24 [degF] Javier Woods [facility] 11-19-2021 15:22-0400 Heart rate 111 /min Javier Woods [facility] Encounters Encounter Date Encounter Type Care [...] Available Start: 08-22-2023 Clinisync Result Encounter Bhumika Wagner PA Work Phone: [facility] External Department Unsolicited [...] 02-26-2023 Emergency department patient visit Charlie Rubalcava [place] [place]: 02-26-2023 End: 02-26-2023 Emergency department patient visit Charlie Rubalcava [facility] Start: 01-30-2023 End: 01-31-2023 ambulatory Willa Ted MONICA Facility[facility] Start: 12-31-2022 End: 12-31-2022 Emergency department patient visit Javier Woods [place] Start: 12-31-2022 End: 12-31-2022 Emergency department patient visit Javier Woods [facility] Start: 12-30-2022 End: 12-30-2022 Emergency department patient visit Javier Woods [place] Start: 12-30-2022 End: 12-30-2022 Emergency department patient visit Javier Woods [facility] Start: 12-26-2022 End: 12-27-2022 ambulatory Johnjef MALONEY Facility:[facility] Start: 12-21-2022 End: 12-21-2022 Emergency department patient visit Charlie Rubalcava [place] [place]: 12-21-2022 End: 12-21-2022 Emergency department patient visit Charlie Rubalcava [facility] Start: 12-15-2022 End: 12-16-2022 ambulatory John MALONEY Facility:[facility] Start: 09-05-2022 End: 09-06-2022 Emergency department patient visit Quita Cano [place] [facility] Start: 09-05-2022 End: 09-05-2022 Emergency department patient visit Quita Cano opal [facility] Start: 09-04-2022 End: 09-04-2022 Emergency department patient visit Solo Sheldon Lamin [facility] Start: 07-27-2022 End: 07-27-2022 Emergency department patient visit Saúl Gaspar [facility] Start: 04-14-2022 End: 04-14-2022 Emergency department patient visit Saúl Gaspar [facility] Start: 04-14-2022 End: 04-14-2022 Emergency department patient visit Saúl Gaspar [facility] Start: 01-13-2022 End: 01-13-[address] HOLLIE RUBI Facility: Start: 11-19-2021 End: 11-19-2021 Emergency department patient visit Javier Woods [facility] Start: 07-05-2021 End: 07-06-2021 ambulatory PHILLIP [...] AM EST Routine [facility] [address] [facility] [address] LiyaBroderick rodrigues, DO [address] [place] [address] [facility] Start: 08-21-2023 End: 08-21-2024 CBC panel - Blood by Automated count CBC Lab Routine Diabetes mellitus screening Expected: 08/21/2023 (Approximate), Expires: 08/21/2024 [facility] Work Phone: Comment on above: Expected: 08/21/2023 (Approximate), Expires: 08/21/2024 Start: 08-21-2023 End: 08-21-2024 Measurement of glucose 1 hour after glucose challenge for glucose tolerance test Glucose tolerance, 1 hour Lab Routine Diabetes mellitus screening Expected: 08/21/2023 (Approximate), Expires: 08/21/2024 [facility] Comment on above: Expected: 08/21/2023 (Approximate), Expires: 08/21/2024 Payers Date Payer Category Payer Medicaid [employer] [facility] [id number] 2022-Present [address] [address] [place] [address] [id number] 1990 Unknown [id number] 2.16.840.1.182583.3.579.2.593 1990 Unknown [id number] 2.16.840.1.344453.3.579.2.593 1990 Unknown [id number] 2.16.840.1.219095.3.579.2.727 1990 Unknown [id number] 2.16.840.1.995643.3.579.2.727 1990 Unknown [id number] 2.16.840.1.366111.3.579.2.727 1990 Unknown [id number] 2.16.840.1.905807.3.579.2.727 1990 Unknown [id number] 2.16.840.1.536457.3.579.2.727 1990 Unknown [id number] 2.16.840.1.286507.3.579.2.727 1990 Unknown [id number] 2.16.840.1.757032.3.579.2.727 1990 Unknown [id number] 2.16.840.1.879191.3.579.2.727 1990 Unknown [id number] 2.16.840.1.375900.3.579.2.727 1990 Unknown [id number] 2.16.840.1.298363.3.579.2.727 1990 Unknown [id number] 2.16.840.1.653651.3.579.2.727 1990 Unknown [id number] 2.16.840.1.710368.3.579.2.1259 1990 Unknown [id number] 2.16.840.1.384313.3.579.2.1259 1990 Unknown [id number] 2.16.840.1.686027.3.579.2.1259 1990 Unknown [id number] 2.16.840.1.082422.3.579.2.1259 1990 Unknown [id number] 2.16.840.1.625646.3.579.2.1259 1990 Unknown [id number] 2.16.840.1.478938.3.579.2.1259 1990 Unknown [id number] 2.16.840.1.687531.3.579.2.1259 1990 Unknown [id number] 2.16.840.1.641642.3.579.2.1259 1990 Unknown [id number] 2.16.840.1.488867.3.579.2.1259 1990 Unknown [id number] 2.16.840.1.481769.3.579.2.1259 1959 Unknown [id number] Self-pay Social History Date Type Detail Facility Tobacco Cigarettes [facility] Comment on above: 1 ppd Sex Assigned At Female [facility] Start: 04-14-2022 Tobacco smoking status Heavy tobacco smoker (finding) [facility] Tobacco smoking status NHIS Tobacco smoking consumption unknown [facility] Start: 02-14-2023 [facility] Start: 1990 Sex Assigned At Not on file [facility] Functional Status Date Assessment Result Facility 02-26-2023 Functional Status N/A [facility] 12-31-2022 Functional Status N/A [facility] 12-30-2022 Functional Status N/A [facility] 12-21-2022 Functional Status N/A [facility] 09-05-2022 Functional Status N/A [facility] 04-14-2022 Functional Status N/A [facility] Clinical Notes 07-06-2021 to 08-21-2023 JOHN PAUL [...] JOHN PAUL Ardon documented in this encounter [facility] 02-26-2023 Hospital Discharg e instructions [...] condition. Follow these instructions at home: Take vnyh-ohf-lcqaabi and prescription medicines only as told by [...] and water are not available, use hand buyer internship. Avoid contact with people who have cold [...] it is easier to cough up. Take zzdz-ced-sxrzdup and prescription medicines only as told by [...] provider. Document Revised: 10/27/2021 Document Reviewed: 10/27/2021 [employer] Patient Education 2022 [employer]. Follow Up Care 02/26/2023 15:53:57 With:[facility] Address: [address] [place] [phone]- Business (1) When:03/01/2023 17:54:59 Comments:Call the office [...] you develop any new or worsening symptoms. [facility] 02-26-2023 Evaluation + Plan note Extrac kathi from: Title:ED Note Author:Juan Ott PA-C e:02/26/23 Bronchitis (J40: Bronchitis, not specified as acute or chronic) Upper respiratory infection (J06.9: Acute upper respiratory infection, unspecified) Orders: albuterol, 2 puff(s), Inhalation, q4hr for 7 day(s), 8.5 gm, Refill(s) 0, [facility], 160, cm, 02/26/23 15:59:00 EDT, Height/Length Dosing, 85.6, kg, 02/26/23 15:59:00 EDT, Weight Dosing brompheniramine/dextromethorphan/PSE, 5 mL, Oral, QID for cold symptoms, 200 mL, Refill(s) 0, [facility] 1985, 160, cm, 02/26/23 15:59:00 EDT, Height/Length Dosing, 85.6, kg, 02/26/23 15:59:00 EDT, Weight Dosing guaifenesin, 600 mg = 1 tab(s), Oral, q12hr, X 7 day(s), # 14 tab(s), Refills(s) 0, Pharmacy: [facility] 1985, 160, cm, 02/26/23 15:59:00 EDT, Height/Length Dosing, 85.6, kg, 02/26/23 15:59:00 EDT, Weight Dosing predniSONE, 60 mg = 3 tab(s), Oral, Daily, X 5 day(s), # 15 tab(s), Refills(s) 0, Pharmacy: [facility] 1985, 160, cm, 02/26/23 15:59:00 EDT, Height/Length Dosing, 85.6, kg, 02/26/23 15:59:00 EDT, Weight Dosing Rapid COVID Antigen ([facility] [facility]06-24-2023 Hospital Discharge instructions Patient Education 12/31/2022 [...] if you start to feel better. Take sxrb-klc-emzvgac and prescription medicines only as told by [...] provider. Document Revised: 09/08/2021 Document Reviewed: 09/08/2021 [employer] Patient Education 2022 [employer]. Follow Up Care 12/31/2022 10:02:50 With:Mark Nespelem Address: [address] [place] [phone]- Business (1) When:01/03/2023 10:36:17 Comments:Follow-up with your primary care provider in 3 to 5 days. If symptoms worsen, do not improve, or new symptoms arise please report back to emergency department for further evaluation. [facility]06-23-2023 Hospital Discharge instructions Follow Up Care 12/30/2022 13:07:17 With:Mark Nespelem Address: [address] [place] [phone]- Business (1) When:Within 3 Day(s) [facility]06-23-2023 Evaluation + Plan noteExtracted from: Title:ED Note Author:Javier Woods DO Date:12/09 09/29 Otitis externa, left (H60.92 : Unspecified otitis externa, left ear) Orders: ciprofloxacin-dexamethasone otic, 5 drop(s), Otic, BID for 7 day(s), 7.5 mL, Refill(s) 0, [facility], 160, cm, 12/30/22 13:14:00 EDT, Height/Length Dosing, 85.6, kg, 12/30/22 13:14:00 EDT, Weight Dosing [facility]06-14-2023 Hospital Discharge instructions Patient Education 12/21/2022 [...] or swathi your foot. General instructions Take nsgw-sbb-fwywvpf and prescription medicines only as told by [...] provider. Document Revised: 10/16/2020 Document Reviewed: 10/16/2020 [employer] Patient Education 2022 [employer]. 12/21/2022 14:54:11 Elastic Bandage and RICE Therapy [...] limityour activities and whether you should start okjoz-ai-gonhbi exercises for your injury. Ice Ice your [...] provider. Document Revised: 08/21/2020 Document Reviewed: 03/16/2018 [employer] Patient Education 2020 [employer]. 12/21/2022 14:54:11 Ankle Sprain, Phase II Rehab [...] by your health care provider. Stretching and uaqoo-cn-dgdbgb exercises These exercises warm up your muscles [...] provider. Document Revised: 08/19/2021 Document Reviewed: 08/19/2021 [employer] Patient Education 2022 [employer]may. 12/21/2022 14:54:11 Ankle Sprain, Phase I Rehab [...] told by your healthcare provider. Stretching and lffnw-ga-cmlyjh exercises These exercises warm up your muscles [...] provider. Document Revised: 08/19/2021 Document Reviewed: 08/19/2021 [employer] Patient Education 2022 [employer]may. 12/21/2022 14:54:11 Ankle Sprain, Bnxj-pw-Nzmo Ankle Sprain An ankle sprain is a [...] blue. Managing pain, stiffness, and swelling Take ghxm-qou-fucdmyr and prescription medicines only as told by [...] provider. Document Revised: 08/19/2021 Document Reviewed: 08/19/2021 [employer] Patient Education 2022 [employer]. Follow Up Care 12/21/2022 13:24:37 With:Mark Nespelem Address: [address] [place], [place] [phone] Business (1) When:12/24/2022 14:27:12 Comments:Follow-up with your primary care provider in 3 to 5 days. If symptoms worsen, do not improve, or new symptoms arise please report back to emergency department for further evaluation. [facility]06-14-2023 Evaluation + Plan noteExtracted from: Title:ED Note Author:Loyd Lange PA-C te:12/21/22 Left ankle sprain (S93.402A: Sprain of unspecified ligament of left ankle, initial encounter) Sprain of left foot (S93.602A: Unspecified sprain of left foot, initial encounter) Orders: Crutches XR Ankle 3+ Views Left XR Foot 3+ Views Left [facility]02-28-2023 Hospital Discharge instructions Patient Education 09/05/2022 22:58:39 Hives, Snfa-hf-Yhpg Hives Hives are itchy, red, swollen areas [...] woman. Being allergic to foods such as: ?[place] fruits. ?Milk. ?Eggs. ?Peanuts. ?Tree nuts. ?Shellfish. [...] instructions at home: Medicines Take or apply wvah-vhc-kntwsrl and prescription medicines only as told by [...] what causes your hives. Take and apply zghm-xhw-tgwbfmr and prescription medicines only as told by your doctor. Keep all follow-up visits as told by your doctor. This is important. This information is not intended to replace advice given to you by your health care provider. Make sure you discuss any questions you have with your health care provider. Document Released: 04/04/2009 Document Revised: 01/09/2019 Document Reviewed: 01/09/2019 [employer] Patient Education 2020 [employer]. Follow Up Care 09/05/2022 21:02:01 With:KATJA MCGINNIS Address: [facility] [place] [address]- Business (1) When:09/08/2022 21:23:21 Comments:Follow-up for further evaluation of your urticarial rashes and reactions. With:Mark Pitts Address: [address] [place] [address]- Business (1) When:Within 3 Day(s) [facility]02-27-2023 Evaluation + Plan noteExtracted from: Title:ED Note Author:Nazario CAO, Loyd Matute te:09/05/22 Allergic reaction (T78.40XA: Allergy, unspecified, initial encounter) Urticaria (L50.9: Urticaria, unspecified) Orders: diphenhydrAMINE, 25 mg = 0.5 mL, Injection, IV Push, Once, Stop date 09/05/22 21:11:00 EST, STAT, Start date 09/05/22 21:11:00 EST, 09/05/22 21:11:00 EST epinephrine, 0.3 mg, IntraMuscular, Once, # 1 kit(s), Refills(s) 1, Pharmacy: [facility] [...] day(s), # 21 tab(s), Refills(s) 0, Pharmacy: [facility], 160, cm, 09/05/22 21:08:00 EST, Height/Length Dosing, 85.6, kg, 09/05/22 21:08:00 EST, Weight Dosing Sodium Chloride 0.9% intravenous solution, 1,000 mL, Soln-IV, IV, Once, Stop date 09/05/22 21:11:00 EST, STAT, Start date 09/05/22 21:11:00 EST, mL/hr, Infuse over 61, minute(s) [facility]10-06-2022 Hospital Discharge instructions Patient Education 04/14/2022 [...] symptoms? Symptoms of anaphylaxis may include: Feeling bar tacker sewing machine the face (flushed). This may include redness. [...] you have hives or rash: ?Use an xevk-kmz-rxfvfar antihistamine as told by your health care provider. ?Apply cold, wet cloths (cold compresses) to your skin or take baths or showers in cool water. Avoid hot water. Take jgnj-qfd-arvwfho and prescription medicines only as told by your health care provider. Tell all your health care providers that you have an allergy. Keep all follow-up visits as told by your health care provider. This is important. How is this prevented? Avoid allergens that have caused an anaphylactic reaction in the past. When you are at a restaurant, tell your casino beverage server that you have an allergy. If you are not sure whether a menu item contains an ingredient that you are allergic to, ask your casino beverage server. Where to find more information [employer] [employer]: aaaai.org [employer] [employer]: healthychildren.org Get help right [...] 06/26/2006 Document Revised: 10/18/2018 Document Reviewed: 10/18/2018 [employer] Patient Education 2020 [employer]may. Follow Up Care 04/14/2022 14:45:49 With:Mark Nespelem Address: [address] [place], [place] [phone]- [facility] (1) When:04/17/2022 18:33:05 [facility]05-13-2022 Hospital Discharge instructions Patient Education 11/19/2021 [...] have symptoms of anaphylaxis, such as: Feeling bar tacker sewing machine the face (flushed). This may include redness. [...] you are at a restaurant, tell your casino beverage server that you have an allergy. If you are unsure whether a meal has an ingredient that you are allergic to, ask your casino beverage server. Take kieb-xgv-lgtxhma and prescription medicines only as told by [...] 06/23/2001 Document Revised: 06/26/2018 Document Reviewed: 06/26/2018 [employer] Patient Education 2020 [employer]. Follow Up Care 11/19/2021 15:20:25 With:[facility] Address: [address] [place] [address] Business (1) When:11/22/2021 18:25:35 [facility]12-28-2021 NotePROCEDURE: CTA CHEST WO W CON [...] TULIO VILLASEÑOR Date: 2021-07-05 23:35[facility] No data available for this section [facility] Diagnosis Third trimester state, incidental Diabetes mellitus screening Screening for diabetes mellitus BV (bacterial vaginosis) Unspecified vaginitis and vulvovaginitis Nausea Nausea alone documented in this encounter [facility] No data available for this section [facility] Summary Purpose Family History No Family History Records FoundNo Family History Records FoundNo Family History Records Found Advance Directives No Advanced Directives Records FoundNo Advanced Directives Records FoundNo Advanced Directives Records Found Additional Source Comments INFORMATION SOURCE (unrecogn ized section and content) DATE CREATED AUTHOR 01/17/2022 [facility] DATE CREATED AUTHOR AUTHOR'S ORGANIZ ATION 02/26/2023 [facility] DATE CREATED AUTHOR AUTHOR'S ORGANIZ ATION 11/01/2023 [facility] EPIC Patient Care team informatio n (unrecognized section and content) Glass Fitter Relationship Specialty Start Date End Date Mark Pitts MD [address] [place] [phone] PCP - General Family Medicine 04/14/23 Glass Fitter Relationship Specialty Start Date End Date Mark Pitts MD [address] [place] [phone] PCP - General Family Medicine 04/14/23 Reason [...] BE BASED ON THE PRIMARY CLINICAL RECORDS. [facility]. provides no warranty or guarantee of the accuracy or completeness of information in this document.
--- NOTE | 2024-04-18 12:58 | XR_ITS ---
The [address] [address] Patient Name: RJ ELENA MRN: [id number] date: 1990 Sex: F Assigned Patient Location: ER Current Patient Location: ER Accession/Order Number: [id number] Exam Date: 04/18/2024 13:10 Report Date: 04/18/2024 14:07 At the request of: BELL DAIZ Procedure: XR foot RT min 3V EXAM: XR foot RT min 3V HISTORY: fall COMPARISON: None. TECHNIQUE: AP, oblique, lateral x-ray right foot FINDINGS: No fracture or healing fracture seen. Normal joints and soft tissues. Plantar calcaneal spur small, minimal posterior calcaneal spur. No joint effusion at the ankle. XR/XR foot RT min 3V IMPRESSION: Negative for fracture or healing fracture. Electronically authenticated by: MAO MCLEAN Date: 04/18/2024 14:07
--- NOTE | 2024-04-18 12:58 | XR_ITS ---
The [address] [address] Patient Name: RJ ELENA MRN: [id number] date: 1990 Sex: F Assigned Patient Location: ER Current Patient Location: ER Accession/Order Number: [id number] Exam Date: 04/18/2024 13:10 Report Date: 04/18/2024 14:13 At the request of: BELL DIAZ Procedure: XR ankle RT min 3V PROCEDURE: XR ankle RT min 3V HISTORY: fall COMPARISON: None. FINDINGS: BONES:No fracture, acute abnormality, or significant arthropathy. SOFT TISSUES:Soft tissue swelling surrounding the ankle. EFFUSION:None visible. OTHER: Negative. XR/XR ankle RT min 3V IMPRESSION: 1. Soft tissue swelling. 2. No acute bone abnormality. Electronically authenticated by: YO MUNSON Date: 04/18/2024 14:13
--- NOTE | 2024-04-18 14:16 | ED_ITS ---
HPI HPI - Extremity Injury (Lower) General Chief Complaint: Extremity Injury, Lower Stated Complaint: LOWER EXTREMITY, RIGHT, EAR Time Seen by Provider: 04/18/24 12:39 Source: patient Mode of arrival: walk-in History of Present Illness HPI Narrative: The patient is coming to us with too many problems the first 1 is that she have that right ankle pain for the last 24 hours after she was going downstairs and her feet skipped a step and she sprained her ankle, the patient has been having swelling in her right ankle and she has not been able to put weight on it The patient also is complaining of left ear pain for the last 2 days she denies any history of recent runny nose or coughing or any nasal congestion but she mentioned that she did notice some drainage from her ear Related Data Home Medications ?Medication ?Instructions ?Recorded ?Confirmed polysaccharide iron complex 180 mg 180 mg PO DAILY 11/01/23 11/01/23 iron capsule (Pro Fe) vit no.95-ferrous 1 tab PO DAILY 11/01/23 11/01/23 fumarate 28 mg-folic acid 800 mcg tablet () Previous Rx's ?Medication ?Instructions ?Recorded ondansetron 4 mg disintegrating 4 mg PO Q6H PRN nausea and 03/28/23 tablet vomiting #12 tabs albuterol sulfate 90 mcg/actuation 2 inh inhalation Q4H PRN shortness 01/31/24 aerosol inhaler of breath or wheezing #8.5 grams prednisone 20 mg tablet See Rx Instructions .Route 01/31/24 .COMPLEX #12 tabs acetaminophen 650 mg 650 mg PO Q8H PRN pain #20 tabs 04/18/24 tablet,extended release (Tylenol 8 Hour) ciprofloxacin HCl 0.2 % ear drops 5 drp otic (ear) BID 7 days #14 ea 04/18/24 in a dropperette Allergies Allergy/AdvReac Type Severity Reaction Status Date / Time amoxicillin Allergy Severe Anaphylaxis Verified 04/18/24 12:39 codeine Allergy Severe Anaphylaxis Verified 04/18/24 12:39 ibuprofen Allergy Severe Anaphylaxis Verified 04/18/24 12:39 Penicillins Allergy Severe Anaphylaxis Verified 04/18/24 12:39 Opioid HPI Opioid Management Most Recent Pain and Opioid Data: Last Pain Scale 6 04/18/24 12:41 04/18/24 Ur Phencyclidine Scrn Negative (NEGATIVE) 10/31/23 20:40 10/09 09/30 Review of Systems ROS Status of ROS 10 or more systems reviewed and unremark able except as noted in history and below [facility] Social History Smoking status: Current every day smoker What tobacco products do you use: cigarettes Packs per day: 1 Highest level of school completed/degree received: high school graduate Little interest or pleasure in doing things: not at all Feeling down, depressed, or hopeless: not at all Exam Narrative Exam Narrative: Nurses notes and vital signs reviewed and patient is not hypoxic. The patient ear and nose and mouth examination showed that she have a left ear otitis externa with irritation of the external auditory canal the tympanic membrane is intact Right leg examination showed that the patient have significant swelling mostly toward the right lateral malleolus, there is tenderness upon palpation of the lateral malleolus Anterior tibial pulse is intact and the patient have a no vascular injury detec kathi General: Well-appearing and in no apparent distress. Skin: Warm, dry, no pallor noted. No rash. Head: Normocephalic, atraumatic. Neck: Supple, non-tender. Eye: Pupils are equal, round and EOMI. No scleral icterus. Cardiovascular: Regular Rate and Rhythm without murmur, gallop or rub. Respiratory: No accessory muscle use or respiratory distress. Lungs are clear to auscultation, no wheezing, rales or rhonchi Chest Wall: no tenderness Back: No midline thoracic or lumbar vertebral tenderness. No CVA tenderness GI: Abdomen is soft, non-distended. Normal bowel sounds. No masses appreciated. No tenderness to palpation. No rebound, guarding, or rigidity noted. Neurological: A&O x4. No cranial nerve dysfunction observed. No truncal ataxia. Moves all extremities. Sensation intact. Psychiatric: Cooperative and interactive. Normal mood and affect. Constitutional Vital Signs, click to edit/add: Last Vital Signs Temp 98.1 F 04/18/24 12:28 Pulse 95 H 04/18/24 12:28 Resp 18 04/18/24 12:28 BP 119/72 04/18/24 12:28 Pulse Ox 95 04/18/24 12:28 O2 Del Method Room Air 04/18/24 12:28 Course Vital Signs Vital signs: Vital Signs Temperature 98.1 F 04/18/24 12:28 Pulse Rate 95 H 04/18/24 12:28 Respiratory Rate 18 04/18/24 12:28 Blood Pressure 119/72 04/18/24 12:28 Pulse Oximetry 95 04/18/24 12:28 Oxygen Delivery Method Room Air 04/18/24 12:28 Temperature 98.1 F 04/18/24 12:28 Pulse Rate 95 H 04/18/24 12:28 Respiratory Rate 18 04/18/24 12:28 Blood Pressure 119/72 04/18/24 12:28 Pulse Oximetry 95 04/18/24 12:28 Oxygen Delivery Method Room Air 04/18/24 12:28 MDM - Extremity Injury (Lower) MDM Narrative Medical decision making narrative: X-ray of the right foot and ankle showed edema but there is no bony structure pathology----the patient provided with Alexei wrap she will continue only Tylenol because she is breast-feeding and she have a history of allergy to ibuprofen in addition to elevation and rest and follow-up with podiatry The patient also had otitis externa and she was treated with Cipro eardrops The patient is to follow up with primary care physician in next 2-3 days or to return to the emergency department should any of the signs or symptoms worsen or new symptoms develop. The patient agrees with the following Diagnosis and Treatment plan and the patient will be discharged home. Discharge Plan Discharge Chief Complaint: Extremity Injury, Lower Clinical Impression: Ankle sprain, Otitis externa Patient Disposition: Home, Self-Care Time of Disposition Decision: 14:17 Condition: Good Prescriptions / Home Meds: New ciprofloxacin HCl 0.2 % dropperette 5 drp otic (ear) BID 7 Days Qty: 14 0RF Rx Instructions: please you can replace the 0.2 % with 0.3 % ophthalmic if needed acetaminophen [Tylenol 8 Hour] 650 mg tablet extended release 650 mg PO Q8H PRN (Reason: pain) Qty: 20 0RF No Action ondansetron 4 mg tablet,disintegrating 4 mg PO Q6H PRN (Reason: nausea and vomiting) Qty: 12 0RF prednisone 20 mg tablet See Rx Instructions .ROUTE .COMPLEX Qty: 12 0RF Rx Instructions: 3 tabs daily for 2 days, then 2 tabs daily for 2 days, then 1 tab daily for 2 days albuterol sulfate 90 mcg/actuation HFA aerosol inhaler 2 inh inhalation Q4H PRN (Reason: shortness of breath or wheezing) Qty: 8.5 0RF Pro Fe 180 mg iron capsule 180 mg PO DAILY PNV cmb#95-ferrous fumarate-FA [] 28 mg iron- 800 mcg tablet 1 tab PO DAILY Print Language: [place] Instructions: Ankle Sprain (DC) Referrals: Physician,Non-Staff, [Primary Care Provider] - 1 week Gil Osman DPM [Physician] - 1 week
== END 2024-04-18 15:03 | disposition home or self-care (01) ==
PROVIDERS: Emergency Provider Emergency Medicine
DX: S93.402A Sprain of unspecified ligament of left ankle, initial encounter (principal); H60.92 Unspecified otitis externa, left ear; W10.9XXA Fall (on) (from) unspecified stairs and steps, initial encounter; F17.210 Nicotine dependence, cigarettes, uncomplicated
CPT/HCPCS: 73610; 73630; 99283